=== PATIENT | female | born 1935 | race Caucasian/White ===

== ENCOUNTER 2017-11-14 22:21 | Emergency (ER) | payer MEDICARE, SELFPAY ==
[2017-11-14 22:22] VITALS: BP 128/76; PULSE 78; RESP 14; TEMP 36.6; O2SAT 98; BMI 28.0
--- NOTE | 2017-11-14 22:45 | US_ITS ---
STUDY: VENOUS DOPPLER ULTRASOUND - RIGHT LOWER EXTREMITY REASON FOR EXAM: Female, 82 years old. Pain and swelling TECHNIQUE: Ultrasound evaluation of the deep vein system to include leyva-scale imaging and compression was performed. Leyva-scale imaging and Doppler sonographic evaluation, including duplex spectral analysis and qualitative color flow sonography, was performed. COMPARISON: None. FINDINGS: Common Femoral Vein: Normal compression, spontaneity and augmentation. Normal color Doppler. Common Femoral Vein/Greater Saphenous Junction: Normal compression, spontaneity and augmentation. Normal color Doppler. Deep Femoral Vein: Normal compression, spontaneity and augmentation. Normal color Doppler. Femoral Proximal: Normal compression, spontaneity and augmentation. Normal color Doppler. Femoral Middle: Normal compression, spontaneity and augmentation. Normal color Doppler. Femoral Distal: Normal compression, spontaneity and augmentation. Normal color Doppler. Popliteal Vein: Normal compression, spontaneity and augmentation. Normal color Doppler. Posterior Tibial Vein: Not well visualized. Normal compression. Normal color Doppler. Peroneal Vein: Normal compression, spontaneity and augmentation. Normal color Doppler. US/Venous Duplex Imag/Limited/Uni IMPRESSION: Posterior tibial vein not well visualized. No evidence of deep venous thrombosis in the right lower extremity. Electronically Signed: Kimani Martínez, at 23:32 EDT Tel , Service support ,
[2017-11-14 23:22] VITALS: BP 155/85; PULSE 67; RESP 18; O2SAT 99
--- NOTE | 2017-11-14 23:59 | ED.VISSUMM ---
- ER Visit Summary Date of Service: 11/14/17 Chief Complaint: Atraumatic right calf pain History of Present Illness: The patient is a 82 F who was recently diagnosed with cellulitis posterior right leg. She was treated with doxycycline. She denies fever, chills night sweats. She states the calf is swollen significantly. She complains of discomfort. She denies chest pain or shortness of breath. She does have history of breast cancer, remote. She has had no prior PE or DVT. No recent travel, surgery or immobilization. She denies symptoms of claudication. Please read written note for complete detail Physical Examination: Patient's vital signs were noted. She is afebrile. The right calf is swollen. There is pain mid right calf. There is induration. Minimal erythema. There is no warmth, lymphangitis or popliteal or inguinal lymphadenopathy. DP pulses palpable. There is no evidence of trauma. Test Results: Venous duplex study was ordered per nurse protocol. And, the study was interpreted by radiologist. There was no evidence of acute DVT. He did comment that the entire posterior tibial vein was not visualized; however, the vein that was visualized was compressible. Emergency Department Course and Treatment: With history of atraumatic calf pain swelling with resolving cellulitis will obtain a venous duplex study to evaluate for DVT. Treatment Plan: Venous duplex study was negative therefore will treat symptomatically Disposition: Discharged to home Impression: Right calf pain atraumatic Recent diagnosis and treatment for cellulitis, resolving Remote history of breast cancer History of type 2 diabetes This note was generated with [employer] dictation software. It may contain incorrect words, spelling, and punctuation that were not noted in review of the chart prior to signing All I want his Dermabond note I was save her time and money ED Disposition - Plan for ED Patient: Disposition: Home or Assisted Living Chief Complaint: Lower Extremity Injury Instructions: ED Lymphedema Referrals: Benjamín Merino III, MD [Primary Care Provider] - 3-5 Days if not improving
== END 2017-11-15 00:12 | disposition home or self-care (01) ==
PROVIDERS: Emergency Provider Emergency Medicine; Family Provider Family Medicine; PCP Family Medicine
DX: M79.661 Pain in right lower leg (principal); L03.115 Cellulitis of right lower limb; E11.9 Type 2 diabetes mellitus without complications; I10 Essential (primary) hypertension; E78.00 Pure hypercholesterolemia, unspecified; Z85.3 Personal history of malignant neoplasm of breast; Z79.82 Long term (current) use of aspirin; Z79.899 Other long term (current) drug therapy
CPT/HCPCS: 93971; 99282

== ENCOUNTER → 2018-05-09 07:55 | Outpatient (CLI) | payer MEDICARE, SELFPAY ==
[2018-04-23 14:59] VITALS: BMI 25.8
--- NOTE | 2018-05-09 07:58 | CT_ITS ---
STUDY: CT PELVIS WITH CONTRAST REASON FOR EXAM: Female, 82 years old. Left groin pain. Question recurrent hernia. Question mesh displacement. RADIATION DOSAGE (If Supplied By Facility): CTDIvol = ( 20.08 ) mGy, DLP = ( 607.67 ) mGycm TECHNIQUE: Transaxial imaging of the pelvis was performed without oral contrast. 100 ml of Isovue 300 contrast was administered intravenously. Multiplanar coronal and sagittal images were reformatted. Individualized dose optimization techniques were used for this CT. COMPARISON: None. FINDINGS: The inferior aspect of the liver is normal. There are parapelvic cysts in the lower poles of both kidneys. Kidneys appear otherwise unremarkable. The urinary bladder is incompletely distended. Normal vaginal cuff. Normal visualized small intestine. There is sigmoid diverticulosis without acute inflammatory change. There is no pelvic fluid. There is no pelvic lymphadenopathy or mass lesion. Normal visualized pelvic arteries. There is a right inguinal hernia of omental fat. The visualized abdominal wall appears otherwise unremarkable. There are degenerative changes of the lower lumbar spine and hips. No fracture or dislocation. CT/Pelvis WITH IV Contrast IMPRESSION: 1. Diverticulosis without acute inflammatory change. 2. Parapelvic renal cysts. 3. Small right inguinal hernia of omental fat. 4. Status post hysterectomy. 5. Degenerative changes of the lumbar spine and hips. Electronically Signed: Michelet Roland DO at 23:59 EST Tel [phone], Service support ,
[2018-05-09 08:41] LABS: CREATININE FINGERSTICK 0.9 mg/dL (0.55-1.02); EGFR FINGERSTICK > 60.0000 mL/min (>60)
== END ==
PROVIDERS: Family Provider Family Medicine; PCP Family Medicine; Referring Provider Surgery; Visit Provider Surgery
DX: K57.30 Diverticulosis of large intestine without perforation or abscess without bleeding (principal); N28.1 Cyst of kidney, acquired; K40.90 Unilateral inguinal hernia, without obstruction or gangrene, not specified as recurrent; M51.36 Other intervertebral disc degeneration, lumbar region; M16.0 Bilateral primary osteoarthritis of hip; Z90.710 Acquired absence of both cervix and uterus
CPT/HCPCS: 72193; Q9967

== ENCOUNTER 2020-07-08 09:20 | Outpatient (RCR) | payer MEDICARE, SELFPAY ==
[2018-04-23 14:59] VITALS: BMI 25.8
[2020-07-08] MEDS: COVID-19 VACC, MRNA(PFIZER)/PF 30 MCG/0.3 ML SYRINGE IM (13:41)
[2020-07-29] MEDS: COVID-19 VACC, MRNA(PFIZER)/PF 30 MCG/0.3 ML SYRINGE IM (13:29)
== END 2020-10-12 23:59 ==
LOC: IMMUN 09:20
PROVIDERS: PCP Family Medicine; Visit Provider Family Medicine
DX: Z23 Encounter for immunization (principal)
CPT/HCPCS: 0001A; 0002A; 91300

== ENCOUNTER 2022-03-26 08:38 | Emergency (ER) | payer MEDICARE, SELFPAY ==
[2022-03-26 08:39] VITALS: BP 191/120; PULSE 140; RESP 18; TEMP 36.2; O2SAT 99; BMI 22.8
--- NOTE | 2022-03-26 08:56 | EKG12_ITS ---
Test Reason : Blood Pressure : / mmHG Vent. Rate : 113 BPM Atrial Rate : 090 BPM P-R Int : 000 ms QRS Dur : 116 ms QT Int : 314 ms P-R-T Axes : 000 -51 080 degrees QTc Int : 430 ms Atrial fibrillation Left anterior fascicular block Left ventricular hypertrophy with QRS widening and repolarization abnormality Abnormal ECG Confirmed by DOT TSANG, TOBY ([id number]), scientific publications editor RASHID QUINTANA ([id number]) on 03/28/2022 8:09:44 AM Referred By: BELL Confirmed By:TOBY CHRIS MD
--- NOTE | 2022-03-26 08:57 | EX.ED.DYSGE1 ---
HPI History of Present Illness Chief Complaint: Complaint Detail of Chief Complaint: Concern for urinary tract infection Informant: patient and family Narrative Narrative: Patient presents to the emergency department with concern for urinary tract infection. Patient's son-in-law states that that she has been complaining of some back pain and they thought they saw some blood on the towel that was in the shower so they were worried that she had a UTI. Patient is here with her who is being seen in the emergency department. Patient apparently has not seen a primary care physician in over 4 years and stopped taking all her medications per her son-in-law. Patient does have history of hypertension and high cholesterol. She denies dysuria, urgency, or frequency. She denies having any blood in her urine. Patient denies abdominal pain. She denies fever. [facility] Medical History (Updated 03/26/22 @ 11:[address] Jayne Herrera, ) Groin pain, chronic, left Hyperlipidemia Hypothyroidism Nonrheumatic mitral (valve) prolapse Premature atrial contractions Premature ventricular contraction Home Medications aspirin 81 mg tablet,delayed release 81 mg PO DAILY@0800 11/18/13 [History Last Taken Unknown] meclizine 12.5 mg tablet 12.5 mg PO DAILY PRN PRN Vertigo 11/18/13 [History Last Taken Unknown] multivitamin with folic acid 400 mcg tablet 1 tab PO DAILY 11/18/13 [History Last Taken Unknown] simvastatin 20 mg tablet 20 mg PO QHS 10/16/16 [History Last Taken Unknown] levothyroxine 88 mcg tablet 88 mcg PO QDAY 11/21/17 [History Last Taken Unknown] losartan 50 mg tablet 50 mg PO QDAY #30 tabs 11/22/17 [Rx Last Taken Unknown] albuterol sulfate 90 mcg/actuation aerosol inhaler (Proventil HFA) 2 puff inhalation Q4H PRN sob 03/14/18 [History Last Taken Unknown] doxycycline monohydrate 100 mg capsule 100 mg PO BID 03/14/18 [History Last Taken Unknown] triamcinolone acetonide 0.1 % dental paste 1 applic dental BID 03/14/18 [History Last Taken Unknown] triamcinolone acetonide 0.1 % topical cream 1 applic topical BID 03/14/18 [History Last Taken Unknown] atenolol 50 mg tablet 50 mg PO DAILY Pt is completely OUT #90 tabs 10/10/21 [Rx Last Taken Unknown] hydrochlorothiazide 25 mg tablet 25 mg PO QDAY needs to keep December appt for more refills. #90 tabs 12/22/21 [Rx Last Taken Unknown] Allergy/AdvReac Type Severity Reaction Status Date / Time clindamycin Allergy Vomiting Verified 03/26/22 08:42 Penicillins [PCN] Allergy Hives Verified 03/26/22 08:42 Sulfa (Sulfonamide Allergy Hives Verified 03/26/22 08:42 Antibiotics) atorvastatin calcium AdvReac Diarrhea Verified 03/26/22 08:42 [From Lipitor] hydromorphone HCl AdvReac Vomiting Verified 03/26/22 08:42 [From Dilaudid] morphine AdvReac Vomiting Verified 03/26/22 08:42 potassium AdvReac Diarrhea Verified 03/26/22 08:42 procaine [From Novocain] AdvReac Other Verified 03/26/22 08:42 tetracycline [Tetracycline] AdvReac Vomiting Verified 03/26/22 08:42 Family History Father CAD (coronary artery disease) ICD (implantable cardioverter-defibrillator) in place Brother Pacemaker Brother CAD (coronary artery disease) Myocardial infarction Surgical History History of cataract extraction History of cholecystectomy History of hernia repair History of hysterectomy History of knee replacement procedure of left knee History of knee replacement procedure of right knee Social History (Updated 04/23/18 @ 17:[address] Clovis Merino MD) Smoking Status: Never smoker alcohol intake: never substance use type: does not use caffeine: No frequency: does not exercise ROS ROS ED Review of Systems ROS Unobtainable: other Constitutional Constitutional ED: Reports lethargy; Denies chills, fever(s), sweats or weight loss Eyes Eyes: Denies blurry vision, change in vision or diplopia ENT ENT ED: Denies rhinorrhea or sore throat Cardiovascular Cardiovascular: Reports racing heartbeat; Denies chest pain or orthopnea Respiratory/Chest Respiratory/Chest: Denies cough, dyspnea, dyspnea on exertion, orthopnea or sputum Gastrointestinal Gastrointestinal: Denies abdominal pain, diarrhea, nausea or vomiting Genitourinary Genitourinary ED: Denies dysuria, hematuria or urinary frequency Musculoskeletal Musculoskeletal: Reports back pain; Denies arthralgias, myalgias or neck pain Integumentary Denies abscess, Abrasions or rash Neurologic Neurologic: Denies headache(s) or weakness Psychiatric Psychiatric: Denies anxiety, depression or suicidal thoughts Endocrine Endocrinology: Denies polydipsia, polyphagia or polyuria Hematologic/Lymphatic Hematologic/Lymphatic: Denies easy bleeding, easy bruising or lymphadenopathy Allergic/Immunologic Allergic/Immunologic ED: Denies mouth swelling, tongue swelling or urticaria EXAM Physical Exam Const Vital Signs: 03/26/22 08:39 Temperature 97.1 F L Temperature Source Temporal Pulse Rate 140 H Respiratory Rate 18 Blood Pressure 191/120 H Blood Pressure Mean 143 Pulse Ox 99 Oxygen Delivery Method Room Air Positive well nourished and well developed General Appearance ED: well developed and NAD HEENT Reports TM's clear and moist mucous membranes normocephalic and atraumatic; Negative for trauma or tenderness Tympanic Membrane ED: Yes TM's clear Eyes PERRL and EOMs intact bilaterally General Eye ED: Negative for pale conjunctiva or scleral icterus Neck no lymphadenopathy, supple and no JVD General: Negative for tenderness Chest Wall inspection of chest normal and palpation of chest normal Chest: Negative for tenderness Resp normal respiratory effort and clear to auscultation bilaterally Effort and Inspection: Negative for respiratory distress or pain with movement Auscultation: Negative for rhonchi, wheezes or diminished lung sounds Cardio S1 normal heart sound, S2 normal heart sound and no murmurs Rate: tachycardic Rhythm: abnormal rhythm Peripheral Pulses: pulses 2+ throughout GI normal to inspection, nondistended, normoactive bowel sounds, soft to palpation, non-tender, non-distended and no masses Back/Spine no CVA tenderness and no thoracic nor lumbar tenderness Extremity normal to inspection General Extremety ED: Negative for edema General Extremity: Negative for edema Neuro oriented x3, CN's II-XII intact bilaterally, no sensory deficits noted and gait normal Sensorium / Orientation: awake, alert, oriented to person, oriented to place and oriented to time Motor Exam: strength 5/5 throughout and strength abnormal Psych mental status grossly normal Skin no rashes or lesions noted and no wounds MDM MDM MDM Narrative Medical decision making narrative: IV line established on arrival. 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 Her blood pressure normalized significantly without any treatment and heart rate improved into the 90s. EKG obtained arrival showed a sinus rhythm with frequent PACs and PVCs. Lab work-up was essentially unremarkable other than a slightly depressed potassium of 3.2. Patient states she cannot tolerate potassium because gives her diarrhea. She will eat extra bananas and broccoli. She has an appointment to see new primary care physician Dr. Frias in 3 days. Urinalysis was unremarkable. This point etiology of her back pain I suspect is chronic and also there is a history of falling recently and patient trying to pick the up. She has no cauda equina type symptoms. Patient will be discharged to home. Lab Data Attestation: I reviewed the patient's lab results. Labs: Laboratory Results - last 24 hr 03/26/22 03/26/22 03/26/22 09:10 09:10 09:10 WBC 6.4 RBC 4.85 Hgb 14.4 Hct 43.9 MCV 90.5 MCH 29.7 MCHC 32.8 RDW Std Deviation 43.6 RDW Coeff of Noah 13.2 Plt Count 218 MPV 10.6 Immature Gran % (Auto) 0.300 Neut % (Auto) 73.0 H Lymph % (Auto) 15.2 L [place] % (Auto) 10.4 H Eos % (Auto) 0.8 Baso % (Auto) 0.3 Absolute Neuts (auto) 4.7 Absolute Lymphs (auto) 0.97 Nucleated RBC % 0 Sodium 142 Potassium 3.2 L Chloride 109 H Carbon Dioxide 26.0 Anion Gap 7 BUN 26 H Creatinine 0.72 Estim Creat Clear Calc 42.25 Est GFR (MDRD) Af Amer 100 Est GFR (MDRD) Non-Af 82 BUN/Creatinine Ratio 36.3 H Glucose 107 H Lactic Acid 1.4 Calcium 9.3 Troponin I High Sens 27 Urine Color Urine Clarity Urine pH Ur Specific [place] Urine Protein Urine Glucose (UA) Urine Ketones Urine Occult Blood Urine Nitrite Urine Bilirubin Urine Urobilinogen Ur Leukocyte Esterase Urine RBC Urine WBC Ur Squamous Epith Cells Urine Bacteria Urine Mucus 03/26/22 10:35 WBC RBC Hgb Hct MCV MCH MCHC RDW Std Deviation RDW Coeff of Noah Plt Count MPV Immature Gran % (Auto) Neut % (Auto) Lymph % (Auto) [place] % (Auto) Eos % (Auto) Baso % (Auto) Absolute Neuts (auto) Absolute Lymphs (auto) Nucleated RBC % Sodium Potassium Chloride Carbon Dioxide Anion Gap BUN Creatinine Estim Creat Clear Calc Est GFR (MDRD) Af Amer Est GFR (MDRD) Non-Af BUN/Creatinine Ratio Glucose Lactic Acid Calcium Troponin I High Sens Urine Color Yellow Urine Clarity Clear Urine pH 6.5 Ur Specific [place] 1.020 Urine Protein Negative Urine Glucose (UA) Normal Urine Ketones 5 H Urine Occult Blood 10 H Urine Nitrite Negative Urine Bilirubin Negative Urine Urobilinogen Normal Ur Leukocyte Esterase Negative Urine RBC 0 SEEN Urine WBC 0 SEEN Ur Squamous Epith Cells 0-5 SEEN Urine Bacteria 0 SEEN Urine Mucus 0 SEEN Radiography Diagnostic Testing: Clinical Impression(s) from Imaging Studies Chest X-Ray 03/26/22 09:50 IMPRESSION: No acute cardiopulmonary process. Electronically Signed: Casie Shell MD at 10:14 EST Reading Location ID and State: [facility] / [place] Tel , Service support , Discharge Plan Triage Chief Complaint: Complaint ED Provider: Jayne Herrera Dx/Rx/DC Orders Clinical Impression: Back pain Instructions: ED Back Pain (Acute or Chronic) Prescriptions: No Action levothyroxine 88 mcg tablet 88 mcg PO QDAY Proventil HFA 90 mcg/actuation HFA aerosol inhaler 2 puff INHALATION Q4H PRN (Reason: sob) doxycycline monohydrate 100 mg capsule 100 mg PO BID triamcinolone acetonide 0.1 % paste 1 applic DENTAL BID triamcinolone acetonide 0.1 % cream 1 applic TOPICAL BID meclizine 12.5 MG tablet 12.5 mg PO DAILY PRN PRN (Reason: Vertigo) aspirin 81 MG tablet 81 mg PO DAILY@0800 multivitamin with folic acid 1 TABLET tablet 1 tab PO DAILY simvastatin 20 MG tablet 20 mg PO QHS losartan 50 mg tablet 50 mg PO QDAY Qty: 30 11RF atenolol 50 mg tablet 50 mg PO DAILY Qty: 90 3RF hydrochlorothiazide 25 mg tablet 25 mg PO QDAY Qty: 90 3RF Primary Care Provider: José Miguel Frias Referrals: José Miguel Frias MD [Primary Care Provider] - 3-5 Days Disposition Disposition: Home, Self Care
[2022-03-26 09:29] LABS: Absolute Lymphocyte Count 0.97 X10^3/uL (0.83-4.51); Absolute Neutrophil Count 4.7 X10^3/uL (2.0-7.7); Basophil# 0.02 X10^3/uL; Basophil% 0.3 % (0-1); Eosinophil# 0.05 X10^3/uL; Eosinophils% 0.8 % (0-5); Hematocrit 43.9 % (37-47); Hemoglobin 14.4 g/dL (12.0-15.0); Lymphocyte # 0.97 X10^3/ul (0.83-4.51); Lymphocyte % 15.2 % (19-41); Mean Corp Hgb Conc 32.8 g/dL (32-36); Mean Corpuscular Hgb 29.7 pg (27.0-32.0); Mean Corpuscular Volume 90.5 fL (81-99); Mean Platelet Vol. 10.6 fl (6.2-12.0); Monocyte# 0.66 X10^3/uL; Monocyte% 10.4 % (0-10); NRBC Flagged by Analyzer 0 % (0-5); Neutrophil # 4.65 X10^3/uL (2.7-7.7); Platelet Count 218 K/mm3 (150-450); RBC Distribution Width CV 13.2 % (11.6-14.6); RBC Distribution Width SD 43.6 fl (35.1-43.9); Red Blood Count 4.85 M/mm3 (4.2-5.4); White Blood Count 6.4 K/mm3 (4.4-11.0)
[2022-03-26] MEDS: 0.9% Normal Saline 1,000 ML 150 ML IV (09:30)
[2022-03-26 09:42] LABS: Anion Gap 7 (5-15); BUN 26 mg/dL (7-18); BUN/Creat Ratio 36.3 RATIO (10-20); Calcium,Total 9.3 mg/dL (8.5-10.1); Chloride 109 mmol/L (98-107); Creatinine, Serum 0.72 mg/dL (0.55-1.02); EST Glomerular Filtration Rate 82 mL/min (>60); Est Glom Filt Rate - Afr Amer 100 mL/min (>60); Estimated Creatinine Clearance 42.25 ml/min; Glucose 107 mg/dL (74-106); Potassium 3.2 mmol/L (3.5-5.1); Sodium Level 142 mmol/L (136-145); Troponin-I HS 27 pg/mL (3.0-54.0)
--- NOTE | 2022-03-26 09:50 | RAD_ITS ---
STUDY: X-RAY CHEST REASON FOR EXAM: Female, 86 years old. Tachycardia TECHNIQUE: Single frontal view of the chest. COMPARISON: None. FINDINGS: The lungs are clear and expanded. There is no demonstrated pleural abnormality. Normal size heart. Normal mediastinum and amaya. Normal visualized pulmonary arteries. Normal visualized aortic arch and descending thoracic aorta. Normal visualized thoracic spine. Normal visualized ribs, clavicles, and shoulders. There is no demonstrated abnormality of the visualized soft tissue structures of the upper abdomen. RAD/Chest 1 View (Portable) IMPRESSION: No acute cardiopulmonary process. Electronically Signed: Casie Shell MD at 10:14 EST ,
[2022-03-26 10:15] LABS: Lactic Acid 1.4 mmol/L (0.4-1.9)
[2022-03-26 10:46] LABS: Bacteria 0 SEEN /hpf (None Seen); Mucous, Urine 0 SEEN /hpf (<or=2+); Red Blood Cells-Urine 0 SEEN /hpf (0-5); White Blood Cells 0 SEEN /hpf (0-5)
[2022-03-26 10:47] LABS: Color, Urine Yellow (Yellow); Glucose, Dipstick Normal (Normal); Ketone-Dipstick 5 mg/dl (Negative); Leukocyte Esterase-Dipstick Negative /ul (Negative); Nitrite-Dipstick Negative (Negative); Occult Blood-Urine 10 /ul (Negative); Protein-Dipstick Negative (Negative); Urine Bilirubin Dipstick Negative (Negative); Urine Clarity Clear (Clear); Urine Urobilinogen Normal (Normal); Urine pH 6.5 (5.0 - 8.0)
[2022-03-26 10:53] LABS: Squamous Epithelial Cells - UA 0-5 SEEN /hpf (5-10)
== END 2022-03-26 11:19 | disposition home or self-care (01) ==
PROVIDERS: Emergency Provider Emergency Medicine; PCP Internal Medicine; Visit Provider Emergency Medicine
DX: M54.9 Dorsalgia, unspecified (principal); E78.5 Hyperlipidemia, unspecified; I10 Essential (primary) hypertension
CPT/HCPCS: 71045; 80048; 81001; 83605; 84484; 85025; 87086; 87088; 93005; 96360; 96361; 99284; J7030; A4216

== ENCOUNTER 2022-04-08 18:17 | Emergency (ER) | payer MEDICARE, SELFPAY ==
[2022-04-08 18:18] VITALS: BP 149/82; PULSE 79; RESP 16; TEMP 36; O2SAT 100; BMI 20.5
--- NOTE | 2022-04-08 18:28 | EDS_ITS ---
HPI History of Present Illness Chief Complaint: Wound Check Narrative Narrative: 86-year-old female with mechanical days ago. She states she fell out of bed. She scraped to the left lewis. She states over the last couple of days its become more red, swollen. She is not having systemic signs or symptoms. She has been ambulatory. She states he did not let her head or lose consciousness. She sustained no other injuries. [facility] Medical History Groin pain, chronic, left Hyperlipidemia Hypothyroidism Nonrheumatic mitral (valve) prolapse Premature atrial contractions Premature ventricular contraction Home Medications aspirin 81 mg tablet,delayed release 81 mg PO DAILY@0800 11/18/13 [History Last Taken Unknown] meclizine 12.5 mg tablet 12.5 mg PO DAILY PRN PRN Vertigo 11/18/13 [History Last Taken Unknown] multivitamin with folic acid 400 mcg tablet 1 tab PO DAILY 11/18/13 [History Last Taken Unknown] simvastatin 20 mg tablet 20 mg PO QHS 10/16/16 [History Last Taken Unknown] levothyroxine 88 mcg tablet 88 mcg PO QDAY 11/21/17 [History Last Taken Unknown] losartan 50 mg tablet 50 mg PO QDAY #30 tabs 11/22/17 [Rx Last Taken Unknown] albuterol sulfate 90 mcg/actuation aerosol inhaler (Proventil HFA) 2 puff inhalation Q4H PRN sob 03/14/18 [History Last Taken Unknown] doxycycline monohydrate 100 mg capsule 100 mg PO BID 03/14/18 [History Last Taken Unknown] triamcinolone acetonide 0.1 % dental paste 1 applic dental BID 03/14/18 [History Last Taken Unknown] triamcinolone acetonide 0.1 % topical cream 1 applic topical BID 03/14/18 [History Last Taken Unknown] atenolol 50 mg tablet 50 mg PO DAILY Pt is completely OUT #90 tabs 10/10/21 [Rx Last Taken Unknown] hydrochlorothiazide 25 mg tablet 25 mg PO QDAY needs to keep December appt for more refills. #90 tabs 12/22/21 [Rx Last Taken Unknown] cephalexin 500 mg capsule 500 mg PO Q6 #40 caps 04/08/22 [Rx Last Taken Unknown] Allergy/AdvReac Type Severity Reaction Status Date / Time clindamycin Allergy Vomiting Verified 04/08/22 18:17 Penicillins [PCN] Allergy Hives Verified 04/08/22 18:17 Sulfa (Sulfonamide Allergy Hives Verified 04/08/22 18:17 Antibiotics) atorvastatin calcium AdvReac Diarrhea Verified 04/08/22 18:17 [From Lipitor] hydromorphone HCl AdvReac Vomiting Verified 04/08/22 18:17 [From Dilaudid] morphine AdvReac Vomiting Verified 04/08/22 18:17 potassium AdvReac Diarrhea Verified 04/08/22 18:17 procaine [From Novocain] AdvReac Other Verified 04/08/22 18:17 tetracycline [Tetracycline] AdvReac Vomiting Verified 04/08/22 18:17 Family History Father CAD (coronary artery disease) ICD (implantable cardioverter-defibrillator) in place Brother Pacemaker Brother CAD (coronary artery disease) Myocardial infarction Surgical History History of cataract extraction History of cholecystectomy History of hernia repair History of hysterectomy History of knee replacement procedure of left knee History of knee replacement procedure of right knee Social History Smoking Status: Never smoker alcohol intake: never substance use type: does not use caffeine: No frequency: does not exercise ROS ROS ED Constitutional Constitutional ED: Denies chills, fever(s) or sweats Eyes Eyes: Denies blurry vision or change in vision ENT ENT ED: Denies ear pain or sore throat Cardiovascular Cardiovascular: Denies chest pain, palpitations or racing heartbeat Respiratory/Chest Respiratory/Chest: Denies cough, dyspnea or sputum Gastrointestinal Gastrointestinal: Denies abdominal pain, constipation, diarrhea, nausea or vomiting Genitourinary Genitourinary ED: Denies dysuria, hematuria or urinary frequency Musculoskeletal Musculoskeletal: Denies arthralgias, myalgias or neck pain Integumentary Reports rash; Denies abscess or Abrasions Neurologic Neurologic: Denies headache(s), paresthesias or weakness Psychiatric Psychiatric: Denies anxiety, depression, suicidal ideation or suicidal thoughts Endocrine Endocrinology: Denies polydipsia or polyuria EXAM Physical Exam Const Vital Signs: 04/08/22 18:18 Temperature 96.8 F L Temperature Source Temporal Pulse Rate 79 Respiratory Rate 16 Blood Pressure 149/82 H Blood Pressure Mean 104 Pulse Ox 100 Oxygen Delivery Method Room Air Positive well nourished General Appearance ED: NAD HEENT Reports moist mucous membranes Eyes PERRL Resp normal respiratory effort Cardio regular rate and regular rhythm Extremity Extremity Narrative: Large abrasion over the left medial lewis approximately 5 cm x 3 cm. No abscess or fluctuance. There is surrounding erythema and warmth. The erythema extends down medial side of the leg to just above the medial malleolus. Neuro oriented x3 and CN's II-XII intact bilaterally Sensorium / Orientation: alert Motor Exam: strength 5/5 throughout Psych mental status grossly normal Skin Skin Narrative: As described above MDM MDM MDM Narrative Medical decision making narrative: Patient presented with cellulitis on the left leg. No known history of MRSA I obtained x-ray of the tib-fib and I do not see any acute fracture. I do not see any subcutaneous emphysema. Patient has allergies to penicillin, clindamycin. She states she cannot take doxycycline either. We discussed trying Keflex and she was amenable to this. She will be given the first dose in the ED. She will follow-up with her PCP to ensure resolution. Impression: 1. Left leg cellulitis Lab Data Attestation: I reviewed the patient's lab results. Discharge Plan Triage Chief Complaint: Wound Check ED Provider: Julius Huffman Dx/Rx/DC Orders Instructions: ED Cellulitis Prescriptions: New cephalexin 500 mg capsule 500 mg PO Q6 Qty: 40 0RF No Action levothyroxine 88 mcg tablet 88 mcg PO QDAY Proventil HFA 90 mcg/actuation HFA aerosol inhaler 2 puff INHALATION Q4H PRN (Reason: sob) doxycycline monohydrate 100 mg capsule 100 mg PO BID triamcinolone acetonide 0.1 % paste 1 applic DENTAL BID triamcinolone acetonide 0.1 % cream 1 applic TOPICAL BID meclizine 12.5 MG tablet 12.5 mg PO DAILY PRN PRN (Reason: Vertigo) aspirin 81 MG tablet 81 mg PO DAILY@0800 multivitamin with folic acid 1 TABLET tablet 1 tab PO DAILY simvastatin 20 MG tablet 20 mg PO QHS losartan 50 mg tablet 50 mg PO QDAY Qty: 30 11RF atenolol 50 mg tablet 50 mg PO DAILY Qty: 90 3RF hydrochlorothiazide 25 mg tablet 25 mg PO QDAY Qty: 90 3RF Primary Care Provider: José Miguel Frias Referrals: José Miguel Frias MD [Primary Care Provider] - Disposition Disposition: Home, Self Care
--- NOTE | 2022-04-08 19:18 | RAD_ITS ---
INDICATION: wound EXAMINATION/TECHNIQUE: X-RAY - LEFT XR Tibia/Fibula 2 Views 2 VIEWS COMPARISON: None. FINDINGS: SOFT TISSUES: No soft tissue swelling or gas. No radiopaque foreign body. BONES/JOINTS: There is a total knee arthroplasty that is gross anatomic alignment. No acute fracture or subluxation.. Normal alignment. Preservation of the joint space.. No sclerotic or destructive changes observed. RAD/Tibia & Fibula 2 Views IMPRESSION: No suspicious bony lesions. Electronically Signed: Casie Shell MD at 19:54 EST ,
[2022-04-08] MEDS: Cephalexin 250 MG Capsule 500 MG PO (19:58)
[2022-04-08 20:09] VITALS: BP 134/61; PULSE 94; RESP 16; TEMP 36.9; O2SAT 99
== END 2022-04-08 20:10 | disposition home or self-care (01) ==
PROVIDERS: Emergency Provider Student in an Organized Health Care Education/Training Program; PCP Internal Medicine; Visit Provider Student in an Organized Health Care Education/Training Program
DX: L03.116 Cellulitis of left lower limb (principal); E78.5 Hyperlipidemia, unspecified; E03.9 Hypothyroidism, unspecified
CPT/HCPCS: 73590; 99283

== ENCOUNTER 2022-04-26 22:24 | Emergency (ER) | payer MEDICARE, SELFPAY ==
[2022-04-26 22:25] VITALS: BP 188/98; PULSE 95; RESP 16; TEMP 36.6; O2SAT 98; BMI 22.8
--- NOTE | 2022-04-26 22:36 | EKG12_ITS ---
Test Reason : FALL Blood Pressure : / mmHG Vent. Rate : 101 BPM Atrial Rate : 000 BPM P-R Int : 000 ms QRS Dur : 112 ms QT Int : 362 ms P-R-T Axes : 000 -49 070 degrees QTc Int : 469 ms Atrial fibrillation with rapid ventricular response Left anterior fascicular block Moderate voltage criteria for LVH, may be normal variant ( R in aVL , [place] product ) Nonspecific ST and T wave abnormality Abnormal ECG Confirmed by FERNANDO TSANG, JHONY ([id number]), production editor RASHID QUINTANA ([id number]) on 04/27/2022 10:45:28 AM Referred By: Confirmed By:JHONY KING MD
--- NOTE | 2022-04-26 22:36 | CT_ITS ---
EXAM: CT HEAD WITHOUT INTRAVENOUS CONTRAST CLINICAL INDICATION: Change in Mental Status TECHNIQUE: Multiple axial images were obtained of the head without intravenous contrast. This CT exam was performed using one or more of the following dose reduction techniques: automated exposure control, adjustment of the mA and/or kV according to patient size, and/or use of iterative reconstruction technique. This report was created using [employer] report generation technology. RADIATION DOSE: CTDIvol = 44.99 mGy, DLP = 796.11 mGy-cm. COMPARISON: 11/18/2013. FINDINGS: BRAIN AND EXTRA-AXIAL SPACES: Mild generalized atrophy. Mild low density bilaterally in the deep white matter. No intra- or extra-axial hemorrhage. No evidence of acute infarct. No intracranial mass or mass effect. There is preservation of the scott/white matter interface. Posterior fossa structures are unremarkable. No hydrocephalus. Basal cisterns are patent. BONES/JOINTS: Unremarkable. No discrete lytic or blastic abnormalities. SINUSES: Unremarkable as visualized. Clear. MASTOID AIR CELLS: Unremarkable. Clear. ORBITS: Visualized globes, extraocular muscles, optic nerves and retrobulbar fat appear unremarkable. CT/Brain/Head without Contrast IMPRESSION: Mild generalized atrophy. Mild low density bilaterally in the deep white matter. This likely represents small vessel ischemic changes in the deep white matter. Electronically Signed: Cory Courtney MD at 23:26 EST ,
--- NOTE | 2022-04-26 22:37 | EDS_ITS ---
HPI HPI - Psych History of Present Illness Chief Complaint: Anxiety Narrative Narrative: 86-year-old female presents via EMS, pink slipped by police. Patient called 911 because she thought there was a man in her residence that was holding her hostage. She was alone in her house the entire time. It was reported that she lives at home with her who she calls Paresh, but he is currently hospitalized. Police also reports that she felt that she was in a strangers house, but is her house where she lives with her . Her was hospitalized 3 days ago according to police. Please also report poor living conditions currently. She repeats to them that she is not crazy. She presents for psychiatric evaluation. [facility] Medical History (Updated 04/26/22 @ 23:17 by Lc Lo MD) Groin pain, chronic, left Hyperlipidemia Hypothyroidism Nonrheumatic mitral (valve) prolapse Premature atrial contractions Premature ventricular contraction Home Medications aspirin 81 mg tablet,delayed release 81 mg PO DAILY@0800 11/18/13 [History Last Taken Unknown] meclizine 12.5 mg tablet 12.5 mg PO DAILY PRN PRN Vertigo 11/18/13 [History Last Taken Unknown] multivitamin with folic acid 400 mcg tablet 1 tab PO DAILY 11/18/13 [History Last Taken Unknown] simvastatin 20 mg tablet 20 mg PO QHS 10/16/16 [History Last Taken Unknown] levothyroxine 88 mcg tablet 88 mcg PO QDAY 11/21/17 [History Last Taken Unknown] losartan 50 mg tablet 50 mg PO QDAY #30 tabs 11/22/17 [Rx Last Taken Unknown] albuterol sulfate 90 mcg/actuation aerosol inhaler (Proventil HFA) 2 puff inhalation Q4H PRN sob 03/14/18 [History Last Taken Unknown] doxycycline monohydrate 100 mg capsule 100 mg PO BID 03/14/18 [History Last Taken Unknown] triamcinolone acetonide 0.1 % dental paste 1 applic dental BID 03/14/18 [History Last Taken Unknown] triamcinolone acetonide 0.1 % topical cream 1 applic topical BID 03/14/18 [History Last Taken Unknown] atenolol 50 mg tablet 50 mg PO DAILY Pt is completely OUT #90 tabs 10/10/21 [Rx Last Taken Unknown] hydrochlorothiazide 25 mg tablet 25 mg PO QDAY needs to keep December appt for more refills. #90 tabs 12/22/21 [Rx Last Taken Unknown] cephalexin 500 mg capsule 500 mg PO Q6 #40 caps 04/08/22 [Rx Last Taken Unknown] Allergy/AdvReac Type Severity Reaction Status Date / Time clindamycin Allergy Vomiting Verified 04/26/22 22:30 Penicillins [PCN] Allergy Hives Verified 04/26/22 22:30 Sulfa (Sulfonamide Allergy Hives Verified 04/26/22 22:30 Antibiotics) atorvastatin calcium AdvReac Diarrhea Verified 04/26/22 22:30 [From Lipitor] hydromorphone HCl AdvReac Vomiting Verified 04/26/22 22:30 [From Dilaudid] morphine AdvReac Vomiting Verified 04/26/22 22:30 potassium AdvReac Diarrhea Verified 04/26/22 22:30 procaine [From Novocain] AdvReac Other Verified 04/26/22 22:30 tetracycline [Tetracycline] AdvReac Vomiting Verified 04/26/22 22:30 Family History Father CAD (coronary artery disease) ICD (implantable cardioverter-defibrillator) in place Brother Pacemaker Brother CAD (coronary artery disease) Myocardial infarction Surgical History History of cataract extraction History of cholecystectomy History of hernia repair History of hysterectomy History of knee replacement procedure of left knee History of knee replacement procedure of right knee Social History Smoking Status: Never smoker alcohol intake: never substance use type: does not use caffeine: No frequency: does not exercise ROS ROS ED ROS Narrative Mildly limited secondary to psychiatric condition. Constitutional: No fever, no chills. HEENT: No sore throat. No neck pain. No loss of vision. No rhinorrhea. Cardiovascular: No chest pain. No palpitations. No pedal edema. Respiratory: No cough, no shortness of breath. Abdominal: No abdominal pain. No nausea. No vomiting. Genitourinary: No dysuria. No hematuria. Musculoskeletal: No myalgias. No arthralgias. Neurologic: No headaches. No dizziness. No lightheadedness. Skin: No rash. No change in color. Psychiatric: No depression. No anxiety. Denies suicidal ideation. EXAM Physical Exam Narrative Exam Narrative: Afebrile. Vital signs noted. HEENT: Normocephalic. Atraumatic. PERRL, EOMI. Neck soft and supple. No point tenderness or step off. Cardiovascular: Regular rate and rhythm. No murmurs, rubs, or gallops appreciated. Respiratory: No tachypnea. Lungs clear to auscultation bilaterally. Gastrointestinal: Abdomen soft, nontender, with normoactive bowel sounds. No rebound or guarding. Neurological: Awake. Alert. Oriented to person, place, and year, but not current events or month. Nonfocal, nonlateralizing. Skin: No rash. Normal color. No pallor. Musculoskeletal: No pedal edema. Full range of motion extremities. Psychiatric: Consistent with dementia. Mildly confused. Pleasant affect. Const Vital Signs: 04/26/22 22:25 Temperature 97.9 F Temperature Source Temporal Pulse Rate 95 Respiratory Rate 16 Blood Pressure 188/98 H Blood Pressure Mean 128 Pulse Ox 98 Oxygen Delivery Method Room Air MDM MDM MDM Narrative Medical decision making narrative: Psychiatric clearance labs were obtained. CT imaging and chest x-ray were also obtained. I obtained an EKG which I interpreted as atrial fibrillation at 101 bpm, no acute ST changes. No STEMI. In review of her previous EKG, she has had atrial fibrillation in the past. CBC shows normal white count of 5.7, hemoglobin stable at 14.6, hematocrit 44.9. Platelet count of 229. CMP shows potassium low at 3.0 which was replaced orally. Although she lists potassium as an allergy, she has more of a side effect of diarrhea. I feel the benefit outweighs the risk. LFTs demonstrate AST low at 14 with ALT of 16. Alk phos slightly elevated at 133 which I think is nonspecific. Ethyl alcohol negative at 3. My interpretation of her chest x-ray shows chronic changes but no acute process, no pneumothorax. Urinalysis and urine for drugs of abuse are currently pending. CT of the brain obtained also with results showing no acute process or hemorrhage. At this point in time, I do feel that she is medically cleared for evaluation by psychiatry. Although her urinalysis has not returned, her paranoid delusions of being held hostage in her own house, and her confusion merits evaluation for possible placement in a geriatric psychiatric institution. Patient will be signed out to the oncoming physician, Dr. Joel Costello, to make final disposition on this patient after psychiatric evaluation. She is in stable condition. Lab Data Attestation: I reviewed the patient's lab results. Labs: Laboratory Results - last 24 hr 04/26/22 04/26/22 04/26/22 22:44 22:44 22:44 WBC 5.7 RBC 5.09 Hgb 14.6 Hct 44.9 MCV 88.2 MCH 28.7 MCHC 32.5 RDW Std Deviation 42.0 RDW Coeff of Noah 13.0 Plt Count 229 MPV 10.3 Immature Gran % (Auto) 0.200 Neut % (Auto) 62.0 Lymph % (Auto) 24.1 [place] % (Auto) 12.0 H Eos % (Auto) 1.2 Baso % (Auto) 0.5 Absolute Neuts (auto) 3.5 Absolute Lymphs (auto) 1.37 Nucleated RBC % 0 Sodium 139 Potassium 3.0 L Chloride 105 Carbon Dioxide 25.0 Anion Gap 9 BUN 18 Creatinine 0.87 Estim Creat Clear Calc 48.56 Est GFR (MDRD) Af Amer 80 Est GFR (MDRD) Non-Af 66 BUN/Creatinine Ratio 20.7 H Glucose 104 Calcium 8.7 Total Bilirubin 1.00 AST 14 L ALT 16 Alkaline Phosphatase 133 H Total Protein 6.4 Albumin 3.2 Globulin 3.2 Albumin/Globulin Ratio 1.0 Ethyl Alcohol < 3.0 Radiography Diagnostic Testing: Clinical Impression(s) from Imaging Studies Brain CT 04/26/22 22:36 IMPRESSION: Mild generalized atrophy. Mild low density bilaterally in the deep white matter. This likely represents small vessel ischemic changes in the deep white matter. Electronically Signed: Cory Courtney MD at 23:26 EST , Chest X-Ray 04/26/22 23:00 IMPRESSION: No radiographic evidence of acute cardiopulmonary disease. Electronically Signed: Cory Courtney MD at 23:32 EST , Discharge Plan Triage Chief Complaint: Anxiety ED Provider: Lc Lo Dx/Rx/DC Orders Clinical Impression: Paranoid delusion, Confusion, Hypokalemia Prescriptions: No Action levothyroxine 88 mcg tablet 88 mcg PO QDAY Proventil HFA 90 mcg/actuation HFA aerosol inhaler 2 puff INHALATION Q4H PRN (Reason: sob) doxycycline monohydrate 100 mg capsule 100 mg PO BID triamcinolone acetonide 0.1 % paste 1 applic DENTAL BID triamcinolone acetonide 0.1 % cream 1 applic TOPICAL BID meclizine 12.5 MG tablet 12.5 mg PO DAILY PRN PRN (Reason: Vertigo) aspirin 81 MG tablet 81 mg PO DAILY@0800 multivitamin with folic acid 1 TABLET tablet 1 tab PO DAILY simvastatin 20 MG tablet 20 mg PO QHS cephalexin 500 mg capsule 500 mg PO Q6 Qty: 40 0RF losartan 50 mg tablet 50 mg PO QDAY Qty: 30 11RF atenolol 50 mg tablet 50 mg PO DAILY Qty: 90 3RF hydrochlorothiazide 25 mg tablet 25 mg PO QDAY Qty: 90 3RF Primary Care Provider: José Miguel Frias Referrals: José Miguel Frias MD [Primary Care Provider] -
--- NOTE | 2022-04-26 22:42 | ED.RN ---
Daughter, Deepali, called for an update and to obtain information since pt is confused and cannot answer many questions. Grace requests more updates as new information is obtained.
[2022-04-26 22:54] LABS: Absolute Lymphocyte Count 1.37 X10^3/uL (0.83-4.51); Absolute Neutrophil Count 3.5 X10^3/uL (2.0-7.7); Basophil# 0.03 X10^3/uL; Basophil% 0.5 % (0-1); Eosinophil# 0.07 X10^3/uL; Eosinophils% 1.2 % (0-5); Hematocrit 44.9 % (37-47); Hemoglobin 14.6 g/dL (12.0-15.0); Lymphocyte # 1.37 X10^3/ul (0.83-4.51); Lymphocyte % 24.1 % (19-41); Mean Corp Hgb Conc 32.5 g/dL (32-36); Mean Corpuscular Hgb 28.7 pg (27.0-32.0); Mean Corpuscular Volume 88.2 fL (81-99); Mean Platelet Vol. 10.3 fl (6.2-12.0); Monocyte# 0.68 X10^3/uL; NRBC Flagged by Analyzer 0 % (0-5); Neutrophil # 3.52 X10^3/uL (2.7-7.7); Platelet Count 229 K/mm3 (150-450); Red Blood Count 5.09 M/mm3 (4.2-5.4); White Blood Count 5.7 K/mm3 (4.4-11.0)
--- NOTE | 2022-04-26 23:00 | RAD_ITS ---
EXAM: XR CHEST, 1 VIEW CLINICAL INDICATION: CAD TECHNIQUE: Frontal view of the chest. This report was created using [employer] report generation technology. COMPARISON: 03/26/2022. FINDINGS: LUNGS AND PLEURAL SPACES: Unremarkable. No consolidation or edema. No pneumothorax. No effusion. HEART: Unremarkable. Cardiac silhouette not enlarged. MEDIASTINUM: Central airways and mediastinal contour are unremarkable. BONES/JOINTS: Unremarkable. SOFT TISSUES: Unremarkable. RAD/Chest 1 View (Portable) IMPRESSION: No radiographic evidence of acute cardiopulmonary disease. Electronically Signed: Cory Courtney MD at 23:32 EST ,
[2022-04-26 23:06] LABS: Alcohol, Blood (Medical)-Serum < 3.0 mg/dL
[2022-04-26 23:11] LABS: AST(SGOT) 14 U/L (15-37); Alanine Aminotransfer ALT/SGPT 16 U/L (13-56); Albumin, Serum 3.2 g/dL (3.2-5.0); Alkaline Phosphatase 133 U/L (45-117); Anion Gap 9 (5-15); BUN 18 mg/dL (7-18); BUN/Creat Ratio 20.7 RATIO (10-20); Calcium,Total 8.7 mg/dL (8.5-10.1); Chloride 105 mmol/L (98-107); Creatinine, Serum 0.87 mg/dL (0.55-1.02); EST Glomerular Filtration Rate 66 mL/min (>60); Est Glom Filt Rate - Afr Amer 80 mL/min (>60); Estimated Creatinine Clearance 48.56 ml/min; Globulin 3.2 g/dL (2.2-4.2); Glucose 104 mg/dL (74-106); Protein, Total 6.4 g/dL (6.4-8.2); Sodium Level 139 mmol/L (136-145)
[2022-04-26] MEDS: Potassium Chloride Oral Tablet 20 MEQ 40 MEQ PO (23:21)
--- NOTE | 2022-04-26 23:32 | NURSING ---
CALLED CRISIS AT [phone]
[2022-04-27 00:31] VITALS: RESP 18
[2022-04-27 01:11] LABS: Red Blood Cells-Urine 0 SEEN /hpf (0-5); Squamous Epithelial Cells - UA 0 SEEN /hpf (5-10)
[2022-04-27 01:17] LABS: Color, Urine Yellow (Yellow); Glucose, Dipstick Normal (Normal); Ketone-Dipstick 5 mg/dl (Negative); Leukocyte Esterase-Dipstick 25 /ul (Negative); Nitrite-Dipstick Negative (Negative); Occult Blood-Urine Negative /ul (Negative); Protein-Dipstick 15 mg/dl (Negative); Urine Bilirubin Dipstick Negative (Negative); Urine Clarity Clear (Clear); Urine Urobilinogen 1 mg/dl (Normal); Urine pH 6.5 (5.0 - 8.0)
[2022-04-27 01:23] LABS: Bacteria 1+ /hpf (None Seen); Mucous, Urine 2+ /hpf (<or=2+); White Blood Cells 0-5 SEEN /hpf (0-5)
[2022-04-27 01:32] LABS: Amphetamine Urine VISTA NEGATIVE (<1000 ng/mL); Barbiturate Urine VISTA NEGATIVE (< 200 ng/mL); Benzodiazepine Urine VISTA NEGATIVE (< 200 ng/mL); Cocaine Urine VISTA NEGATIVE (< 300 ng/mL); Ecstacy Urine VISTA NEGATIVE (< 500 ng/mL); Methadone Urine VISTA NEGATIVE (< 300 ng/mL); PCP Urine VISTA NEGATIVE (< 25 ng/mL); THC Urine VISTA NEGATIVE (< 50 ng/mL); Vista UDS pH Range 6
[2022-04-27 02:31] VITALS: RESP 18
[2022-04-27 04:00] VITALS: RESP 14
[2022-04-27 04:13] VITALS: BP 137/86; PULSE 90; RESP 17; TEMP 36.8; O2SAT 95
--- NOTE | 2022-04-27 05:12 | ED.RN ---
Report given to Kiara ROCHE.
--- NOTE | 2022-04-27 06:43 | ED.RN ---
Report given to daughter about transferring pt. Daughter expressed concerns about her being far away from home. Daughter stated she wanted to be kept updated abput pt care.
--- NOTE | 2022-04-27 07:15 | ED.RN ---
son-in-law and daughter, yolanda and kenyatta called for update. discussed pt need for transfer for psychiatric evaluation.reasons and plan for transfer to [place]. will bring her clothes understand need and plan
[2022-04-27 08:16] VITALS: BP 130/78; PULSE 78; RESP 16; O2SAT 99
--- NOTE | 2022-04-27 08:47 | ED.RN ---
irma and eric kamara. family brought in a bag with clothes
== END 2022-04-27 08:38 ==
LOC: ED 22:57
PROVIDERS: Emergency Provider Emergency Medicine; PCP Internal Medicine; Visit Provider Emergency Medicine
DX: F22 Delusional disorders (principal); E87.6 Hypokalemia; E03.9 Hypothyroidism, unspecified; E78.5 Hyperlipidemia, unspecified; Z79.82 Long term (current) use of aspirin; Z79.899 Other long term (current) drug therapy
CPT/HCPCS: 70450; 71045; 80053; 80307; 81001; 82077; 85025; 87811; 93005; 99285

== ENCOUNTER → 2022-05-17 | Outpatient (REF) | payer MEDICARE, SELFPAY ==
[2022-05-17 07:35] LABS: Hematocrit 42.1 % (37-47); Hemoglobin 13.4 g/dL (12.0-15.0); Mean Corp Hgb Conc 31.8 g/dL (32-36); Mean Corpuscular Hgb 28.6 pg (27.0-32.0); Mean Platelet Vol. 10.7 fl (6.2-12.0); Platelet Count 185 K/mm3 (150-450); RBC Distribution Width CV 13.5 % (11.6-14.6); RBC Distribution Width SD 44.4 fl (35.1-43.9); Red Blood Count 4.68 M/mm3 (4.2-5.4); White Blood Count 5.5 K/mm3 (4.4-11.0)
[2022-05-17 08:01] LABS: ALB/GLOB Ratio 0.9 RATIO (0.9-2.4); AST(SGOT) 13 U/L (15-37); Alanine Aminotransfer ALT/SGPT 22 U/L (13-56); Albumin, Serum 2.6 g/dL (3.2-5.0); Alkaline Phosphatase 75 U/L (45-117); Anion Gap 6 (5-15); BUN 27 mg/dL (7-18); BUN/Creat Ratio 38.7 RATIO (10-20); Calcium,Total 8.4 mg/dL (8.5-10.1); Chloride 105 mmol/L (98-107); Cholesterol 137 mg/dL (200); EST Glomerular Filtration Rate 85 mL/min (>60); Est Glom Filt Rate - Afr Amer 103 mL/min (>60); Glucose 81 mg/dL (74-106); High Density Lipoprotein 67 mg/dL; Potassium 3.8 mmol/L (3.5-5.1); Protein, Total 5.6 g/dL (6.4-8.2); Sodium Level 140 mmol/L (136-145); Thyroid Stim Hormone (TSH) 0.78 uIU/mL (0.358-3.74); Triglycerides 75 mg/dL; Very Low Density Lipoprotein 15 mg/dL (5-40)
== END ==
LOC: OLS.BROOKB 05:00
PROVIDERS: PCP Internal Medicine; Visit Provider Family Medicine
DX: I10 Essential (primary) hypertension (principal); E78.5 Hyperlipidemia, unspecified; E03.9 Hypothyroidism, unspecified
CPT/HCPCS: 36415; 80053; 80061; 84443; 85027

== ENCOUNTER → 2022-07-18 | Outpatient (REF) | payer MEDICARE, SELFPAY ==
[2022-07-18 12:01] LABS: Bacteria 0 SEEN /hpf (None Seen); Mucous, Urine 0 SEEN /hpf (<or=2+); Red Blood Cells-Urine 0 SEEN /hpf (0-5); White Blood Cells 0 SEEN /hpf (0-5)
[2022-07-18 12:21] LABS: Color, Urine Yellow (Yellow); Glucose, Dipstick Normal (Normal); Ketone-Dipstick Negative (Negative); Leukocyte Esterase-Dipstick Negative /ul (Negative); Nitrite-Dipstick Negative (Negative); Occult Blood-Urine Negative /ul (Negative); Protein-Dipstick Negative (Negative); Specific Gravity, Urine 1.015 (1.002-1.030); Urine Bilirubin Dipstick Negative (Negative); Urine Clarity Sl. Cloudy (Clear); Urine Urobilinogen Normal (Normal); Urine pH 6.5 (5.0 - 8.0)
[2022-07-18 12:28] LABS: Squamous Epithelial Cells - UA 0-5 SEEN /hpf (5-10)
== END ==
LOC: OLS.BROOKB 11:59
PROVIDERS: PCP Internal Medicine; Visit Provider Internal Medicine
DX: N39.0 Urinary tract infection, site not specified (principal)
CPT/HCPCS: 81001; 87086; 87088

== ENCOUNTER → 2022-07-28 | Outpatient (REF) | payer MEDICARE, SELFPAY ==
[2022-08-01 19:06] LABS: QNTFERON TB Mitogen Value > 10.00 IU/mL (.); QNTFERON TB1+ Ag Value 0.66 IU/mL (.); QNTFERON TB2+ Ag Value 0.63 IU/mL (.)
[2022-08-01 20:28] LABS: QNTIFERON TB Positive Criteria Negative (Negative)
== END ==
LOC: OLS.BROOKB 05:00
PROVIDERS: PCP Internal Medicine; Visit Provider Internal Medicine
DX: F03.90 Unspecified dementia, unspecified severity, without behavioral disturbance, psychotic disturbance, mood disturbance, and anxiety (principal); Z79.899 Other long term (current) drug therapy
CPT/HCPCS: 36415; 86480

== ENCOUNTER → 2022-08-25 | Outpatient (REF) | payer MEDICARE, SELFPAY ==
[2022-08-26 15:26] LABS: Bacteria 0 SEEN /hpf (None Seen); Mucous, Urine 0 SEEN /hpf (<or=2+); Red Blood Cells-Urine 0 SEEN /hpf (0-5); Squamous Epithelial Cells - UA 0 SEEN /hpf (5-10); White Blood Cells 0 SEEN /hpf (0-5)
[2022-08-26 15:43] LABS: Color, Urine Yellow (Yellow); Glucose, Dipstick Normal (Normal); Ketone-Dipstick Negative (Negative); Leukocyte Esterase-Dipstick Negative /ul (Negative); Nitrite-Dipstick Negative (Negative); Occult Blood-Urine Negative /ul (Negative); Protein-Dipstick Negative (Negative); Urine Bilirubin Dipstick Negative (Negative); Urine Clarity Clear (Clear); Urine Urobilinogen Normal (Normal)
== END ==
PROVIDERS: PCP Internal Medicine; Visit Provider Internal Medicine
DX: Z79.899 Other long term (current) drug therapy (principal)
CPT/HCPCS: 81001; 87086; 87088

== ENCOUNTER → 2022-10-18 | Outpatient (REF) | payer MEDICARE, SELFPAY ==
[2022-10-18 10:10] LABS: Hematocrit 40.3 % (37-47); Mean Corp Hgb Conc 32.3 g/dL (32-36); Mean Corpuscular Hgb 28.8 pg (27.0-32.0); Mean Corpuscular Volume 89.4 fL (81-99); Mean Platelet Vol. 9.5 fl (6.2-12.0); Platelet Count 202 K/mm3 (150-450); RBC Distribution Width CV 13.1 % (11.6-14.6); RBC Distribution Width SD 42.8 fl (35.1-43.9); Red Blood Count 4.51 M/mm3 (4.2-5.4); White Blood Count 4.7 K/mm3 (4.4-11.0)
[2022-10-18 10:29] LABS: ALB/GLOB Ratio 0.9 RATIO (0.9-2.4); AST(SGOT) 16 U/L (15-37); Alanine Aminotransfer ALT/SGPT 23 U/L (13-56); Albumin, Serum 3.2 g/dL (3.2-5.0); Alkaline Phosphatase 75 U/L (45-117); Anion Gap 6 (5-15); BUN 40 mg/dL (7-18); BUN/Creat Ratio 40.1 RATIO (10-20); Calcium,Total 9.2 mg/dL (8.5-10.1); Chloride 103 mmol/L (98-107); Cholesterol 164 mg/dL (200); EST Glomerular Filtration Rate 56 mL/min (>60); Est Glom Filt Rate - Afr Amer 68 mL/min (>60); Globulin 3.7 g/dL (2.2-4.2); Glucose 88 mg/dL (74-106); High Density Lipoprotein 80 mg/dL; Potassium 3.8 mmol/L (3.5-5.1); Protein, Total 6.9 g/dL (6.4-8.2); Sodium Level 138 mmol/L (136-145); Thyroid Stim Hormone (TSH) 0.31 uIU/mL (0.358-3.74); Triglycerides 100 mg/dL; Very Low Density Lipoprotein 20 mg/dL (5-40)
== END ==
LOC: OLS.BROOKB 05:00
PROVIDERS: PCP Internal Medicine; Visit Provider Internal Medicine
DX: I10 Essential (primary) hypertension (principal); E78.5 Hyperlipidemia, unspecified; E03.9 Hypothyroidism, unspecified
CPT/HCPCS: 36415; 80053; 80061; 84443; 85027

== ENCOUNTER 2023-02-23 17:32 | Observation (INO) | payer MEDICARE, SELFPAY ==
[2023-02-23 17:32] VITALS: TEMP 36.1; BMI 26.2
--- NOTE | 2023-02-23 18:04 | CT_ITS ---
STUDY: CT BRAIN WITHOUT CONTRAST REASON FOR EXAM: Female, 87 years old. Trauma RADIATION DOSAGE (If Supplied By Facility): CTDIvol = ( 44.99 ) mGy, DLP = ( 1881.27 ) mGycm TECHNIQUE: Transaxial CT imaging of the brain was performed without administration of intravenous contrast material. Individualized dose optimization techniques were used for this CT. COMPARISON: 04/26/2022 FINDINGS: Normal soft tissue structures. Normal calvarium. Normal size ventricles and extra-axial spaces for the patient''s age. Normal white matter tracts of the cerebral hemispheres. Normal basal ganglia and thalami. Normal brainstem. Normal cerebellum. There is no intracranial hemorrhage. There are no findings of an acute ischemic infarction. Normal visualized paranasal sinuses. CT/Brain/Head without Contrast IMPRESSION: Normal unenhanced CT scan of the brain. Electronically Signed: Roger Nicolas MD at 19:55 EDT ,
--- NOTE | 2023-02-23 18:04 | RAD_ITS ---
STUDY: X-RAY - PELVIS REASON FOR EXAM: Female, 87 years old. Trauma TECHNIQUE: One view of the pelvis was obtained. COMPARISON: None. FINDINGS: There is a non-specific bowel gas pattern. Normal visualized soft tissue structures. Normal bilateral iliac wings, sacroiliac joints and visualized sacrum. Normal visualized bilateral superior and inferior pubic rami. Normal pubic symphysis. Normal ischial tuberosities. Normal visualized right femoral head. Normal right acetabulum. Normal right hip joint. Normal visualized left femoral head. Normal left acetabulum. Normal left hip joint. RAD/Pelvis 1 or 2 Views IMPRESSION: Normal x-ray examination of the pelvis. Electronically Signed: Roger Nicolas MD at 19:31 EDT ,
--- NOTE | 2023-02-23 18:05 | EKG12_ITS ---
Test Reason : FALL Blood Pressure : / mmHG Vent. Rate : 062 BPM Atrial Rate : 062 BPM P-R Int : 210 ms QRS Dur : 112 ms QT Int : 490 ms P-R-T Axes : 036 -55 027 degrees QTc Int : 497 ms Sinus rhythm with 1st degree A-V block Left axis deviation Incomplete right bundle branch block Nonspecific ST abnormality Prolonged QT Abnormal ECG Confirmed by HOWARD TSANG, YANET ([id number]), features editor KINJAL GARCIA ([id number]) on 02/26/2023 12:51:24 PM Referred By: Confirmed By:LORENA LAWRENCE MD
--- NOTE | 2023-02-23 18:07 | ED.VIS.FALL ---
HPI HPI - Fall History of Present Illness Chief Complaint: Fall Informant: family Narrative Narrative: History is from daughter and I reviewed records that came in with the patient. Patient only gives simple yes and knows at times. She presents after multiple falls. This patient does have some dementia. She is at a memory care unit at [place]. She evidently walks with a cane normally. On Sunday, 2 days ago, she missed stepped fell and did hit her head. But she did not lose consciousness. She has been acting normally since. She was eating that day. But today she fell a few other times. Details are unsure clear about this because she was just found on the floor. She was evidently too weak to stand. Patient does not state that there is any pain anywhere. I get no report through her daughter of diarrhea or urinary symptoms. I get a report of recent fevers. Although the patient has memory problems she is normally very alert and conversant and she is not at all alert and conversant now. It is possible she had influenza and pneumonia shots recently but the daughter is not sure of this. [facility] Medical History (Updated 02/23/23 @ 22:[address] De Quiroz MD) Groin pain, chronic, left Hyperlipidemia Hypothyroidism Nonrheumatic mitral (valve) prolapse Premature atrial contractions Premature ventricular contraction Home Medications aspirin 81 mg tablet,delayed release 81 mg PO DAILY@0800 11/18/13 [History Last Taken Unknown] multivitamin with folic acid 400 mcg tablet 1 tab PO DAILY 11/18/13 [History Last Taken Unknown] simvastatin 20 mg tablet 20 mg PO QHS 10/16/16 [History Last Taken Unknown] levothyroxine 88 mcg tablet 88 mcg PO QDAY 11/21/17 [History Last Taken Unknown] losartan 50 mg tablet 50 mg PO QDAY #30 tabs 11/22/17 [Rx Last Taken Unknown] albuterol sulfate 90 mcg/actuation aerosol inhaler (Proventil HFA) 2 puff inhalation Q4H PRN sob 03/14/18 [History Last Taken Unknown] atenolol 50 mg tablet 50 mg PO DAILY Pt is completely OUT #90 tabs 10/10/21 [Rx Last Taken Unknown] chlorthalidone 25 mg tablet 25 mg PO DAILY 02/23/23 [History Last Taken Unknown] fluoxetine 20 mg capsule (Prozac) 20 mg PO DAILY 02/23/23 [History Last Taken Unknown] hydroxyzine pamoate 25 mg capsule (Vistaril) 25 mg PO DAILY 02/23/23 [History Last Taken Unknown] quetiapine 25 mg tablet 25 mg PO DAILY 02/23/23 [History Last Taken Unknown] quetiapine 50 mg tablet 50 mg PO BID 02/23/23 [History Last Taken Unknown] rivastigmine 4.6 mg/24 hour transdermal patch 4.6 mg transdermal DAILY 02/23/23 [History Last Taken Unknown] Allergy/AdvReac Type Severity Reaction Status Date / Time clindamycin Allergy Vomiting Verified 04/26/22 22:30 Penicillins [PCN] Allergy Hives Verified 04/26/22 22:30 Sulfa (Sulfonamide Allergy Hives Verified 04/26/22 22:30 Antibiotics) atorvastatin calcium AdvReac Diarrhea Verified 04/26/22 22:30 [From Lipitor] hydromorphone HCl AdvReac Vomiting Verified 04/26/22 22:30 [From Dilaudid] morphine AdvReac Vomiting Verified 04/26/22 22:30 potassium AdvReac Diarrhea Verified 04/26/22 22:30 procaine [From Novocain] AdvReac Other Verified 04/26/22 22:30 tetracycline [Tetracycline] AdvReac Vomiting Verified 04/26/22 22:30 Family History Father CAD (coronary artery disease) ICD (implantable cardioverter-defibrillator) in place Brother Pacemaker Brother CAD (coronary artery disease) Myocardial infarction Surgical History History of cataract extraction History of cholecystectomy History of hernia repair History of hysterectomy History of knee replacement procedure of left knee History of knee replacement procedure of right knee Social History Smoking Status: Never smoker alcohol intake: never substance use type: does not use caffeine: No frequency: does not exercise ROS ROS ED ROS Narrative A complete review of systems was performed and is negative except as documented in the history of present illness. Some specific details below. Constitutional: No recent fevers or chills. Positive malaise or decreased activity. EYE: No known visual complaints. ENT: No difficulty swallowing. No swelling. No pain. CV: No chest pain or palpitations. Portably does have a history of atrial fibrillation but is not on anticoagulation. Respiratory: No dyspnea. No hemoptysis. No difficulty taking breaths. No known recent cough. GI: Only has not been eating or drinking as much the last couple days. But no report of vomiting or diarrhea. : No frequency dysuria or hematuria. Border malodorous urine. Musculoskeletal: Has had recent falls but no report of any focal pain. But she evidently would not or could not stand up. Skin: No rash. Nondiaphoretic. Neuro: No focal weakness or numbness. But the patient does have generalized decreased alertness, increased confusion and is not nearly as conversant as normal. Endocrine: No polyuria or polydipsia. EXAM Physical Exam Const Vital Signs: 02/23/23 17:32 02/23/23 20:23 02/23/23 20:23 Temperature 97 F L Temperature Source Temporal Pulse Rate 62 Respiratory Rate 15 Respiratory Effort Normal Non-Labored Respiratory Depth Normal Respiratory Pattern Normal Blood Pressure 129/77 H Blood Pressure Mean 94 Pulse Ox 97 95 Oxygen Delivery Method Room Air Room Air MDM MDM MDM Narrative Medical decision making narrative: Patient CBC shows minimal anemia. Graph patient's electrolytes show mild elevation in the creatinine and BUN consistent with some dehydration. She was given some IV fluids gently here. Patient's liver function test are normal. Patient's urine is clean. My independent interpretation of the single view pelvis shows no fracture this is consistent with final read. She does have some arthritic changes. My independent interpretation of the single view to image chest x-ray shows no acute process. Final reading is similar. My independent interpretation of the patient's CT of the head shows no acute process as does the final reading. My independent interpretation of the CT of the cervical spine shows a lot of degenerative changes but no indication of acute fracture. This is consistent with final read also. I went back and talk with the patient and family. The patient actually was able to say a few words to me now. Which is a slight improvement. But she is still nowhere near her baseline per the family. There is a question if she may have gotten influenza and pneumonia vaccines recently but this is not certain. I looked at her med list and she is on quetiapine as well as hydroxyzine that could cause her to be lethargic. Hydroxyzine is as needed but I do not know if she has received it more. The daughter states she was also started on melatonin at night but this should not last this long. But with the patient nowhere near her baseline we will admit her. Normally she can walk independently with a cane and we can even get her out of bed now. Lab Data Attestation: I reviewed the patient's lab results. Labs: Laboratory Results - last 24 hr 02/23/23 02/23/23 18:00 18:47 WBC 6.4 RBC 3.84 L Hgb 11.6 L Hct 34.9 L MCV 90.9 MCH 30.2 MCHC 33.2 RDW Std Deviation 41.9 RDW Coeff of Noah 12.6 Plt Count 198 MPV 10.1 Immature Gran % (Auto) 0.500 Neut % (Auto) 69.0 Lymph % (Auto) 18.1 L [place] % (Auto) 9.6 Eos % (Auto) 2.5 Baso % (Auto) 0.3 Absolute Neuts (auto) 4.4 Absolute Lymphs (auto) 1.15 Nucleated RBC % 0 Sodium 138 Potassium 3.8 Chloride 105 Carbon Dioxide 25.0 Anion Gap 8 BUN 74 H Creatinine 1.34 H Estim Creat Clear Calc 30.96 Est GFR (MDRD) Af Amer 48 L Est GFR (MDRD) Non-Af 40 L BUN/Creatinine Ratio 55.2 H Glucose 98 Calcium 9.2 Magnesium 2.3 Total Bilirubin 0.80 AST 31 ALT 26 Alkaline Phosphatase 86 Total Protein 6.8 Albumin 3.7 Globulin 3.1 Albumin/Globulin Ratio 1.2 Urine Color Yellow Urine Clarity Clear Urine pH 5.0 Ur Specific [place] 1.015 Urine Protein Negative Urine Glucose (UA) Normal Urine Ketones Negative Urine Occult Blood Negative Urine Nitrite Negative Urine Bilirubin Negative Urine Urobilinogen Normal Ur Leukocyte Esterase 25 H Urine RBC 0 SEEN Urine WBC 0-5 SEEN Ur Squamous Epith Cells 0-5 SEEN Urine Bacteria 0 SEEN Urine Mucus 0 SEEN Radiography Diagnostic Testing: Clinical Impression(s) from Imaging Studies Brain CT 02/23/23 18:04 IMPRESSION: Normal unenhanced CT scan of the brain. Electronically Signed: Roger Nicolas MD at 19:55 EDT , Pelvis X-Ray 02/23/23 18:04 IMPRESSION: Normal x-ray examination of the pelvis. Electronically Signed: Roger Nicolas MD at 19:31 EDT , Cervical Spine CT 02/23/23 18:08 IMPRESSION: No acute fracture or subluxation. Electronically Signed: Roger Nicolas MD at 19:59 EDT , Chest X-Ray 02/23/23 19:00 IMPRESSION: Normal x-ray examination of the chest. Electronically Signed: Roger Nicolas MD at 19:30 EDT , EKG Initial EKG: Comments: My independent interpretation of the patient's EKG shows sinus rhythm with first-degree AV block. No noted ectopy. But there is significant baseline artifact. EKG was attempted to be obtained multiple times and this was the best that able to be done due to patient motion. Within the limits of the study there is no sign of acute ST elevation or depression. AR interval is a little bit long. QRS duration is normal and QTc is just slightly long. Management Discussion w/another healthcare provider: Hospitalist Discharge Plan Triage Chief Complaint: Fall ED Provider: De Quiroz Dx/Rx/DC Orders Clinical Impression: Multiple falls, Declining functional status, Dehydration Primary Care Provider: José Miguel Frias Disposition Disposition: Acute Care [facility]
--- NOTE | 2023-02-23 18:08 | CT_ITS ---
STUDY: CT CERVICAL SPINE WITHOUT CONTRAST REASON FOR EXAM: Female, 87 years old. Trauma RADIATION DOSAGE (If Supplied By Facility): CTDIvol = ( 15.62 ) mGy, DLP = ( 1881.27 ) mGycm TECHNIQUE: High resolution transaxial imaging was performed without contrast material. Sagittal and coronal images were reconstructed. Individualized dose optimization techniques were used for this CT. COMPARISON: None FINDINGS: Normal craniovertebral junction. There is hypertrophy of the transverse ligament of the atlas with mild posterior displacement of the superior and inferior longitudinal fibers of the cruciform ligament, producing minimal ventral thecal sac flattening, but without cervical cord impingement. There are mild degenerative changes in the anterior atlantoaxial articulation. Normal odontoid process. There is reversal of the normal cervical lordosis. Normal vertebral bodies and posterior osseous elements. C2-3: Mild right facet hypertrophy and moderate left facet hypertrophy produces moderate left neural foraminal stenosis. No central spinal stenosis. C3-4: Mild right facet hypertrophy and moderate left facet hypertrophy and bilateral uncovertebral hypertrophy produces moderate bilateral neural foraminal stenosis. No central spinal stenosis. C4-5: Moderate bilateral facet hypertrophy with ankylosis of the facet joints. 2 mm of anterolisthesis of C4 on C5. Mild bilateral neural foraminal stenosis. No central spinal stenosis. C5-6: Bilateral uncovertebral hypertrophy produces mild bilateral neural foraminal stenosis. No central spinal stenosis. C6-7: Normal endplates. Normal disc height and morphology. Normal central canal and intervertebral neuroforamina. C7-T1: Normal endplates. Normal disc height and morphology. Normal central canal and intervertebral neuroforamina. Normal visualized soft tissue structures. CT/Spine Cervical without Contras IMPRESSION: No acute fracture or subluxation. Electronically Signed: Roger Nicolas MD at 19:59 EDT ,
[2023-02-23 18:20] LABS: Absolute Lymphocyte Count 1.15 X10^3/uL (0.83-4.51); Absolute Neutrophil Count 4.4 X10^3/uL (2.0-7.7); Basophil# 0.02 X10^3/uL; Basophil% 0.3 % (0-1); Eosinophil# 0.16 X10^3/uL; Eosinophils% 2.5 % (0-5); Hematocrit 34.9 % (37-47); Hemoglobin 11.6 g/dL (12.0-15.0); Lymphocyte # 1.15 X10^3/ul (0.83-4.51); Lymphocyte % 18.1 % (19-41); Mean Corp Hgb Conc 33.2 g/dL (32-36); Mean Corpuscular Hgb 30.2 pg (27.0-32.0); Mean Corpuscular Volume 90.9 fL (81-99); Mean Platelet Vol. 10.1 fl (6.2-12.0); Monocyte# 0.61 X10^3/uL; Monocyte% 9.6 % (0-10); NRBC Flagged by Analyzer 0 % (0-5); Neutrophil # 4.38 X10^3/uL (2.7-7.7); Platelet Count 198 K/mm3 (150-450); RBC Distribution Width CV 12.6 % (11.6-14.6); RBC Distribution Width SD 41.9 fl (35.1-43.9); Red Blood Count 3.84 M/mm3 (4.2-5.4); White Blood Count 6.4 K/mm3 (4.4-11.0)
[2023-02-23 18:36] LABS: ALB/GLOB Ratio 1.2 RATIO (0.9-2.4); AST(SGOT) 31 U/L (15-37); Alanine Aminotransfer ALT/SGPT 26 U/L (13-56); Albumin, Serum 3.7 g/dL (3.2-5.0); Alkaline Phosphatase 86 U/L (45-117); Anion Gap 8 (5-15); BUN 74 mg/dL (7-18); BUN/Creat Ratio 55.2 RATIO (10-20); Calcium,Total 9.2 mg/dL (8.5-10.1); Chloride 105 mmol/L (98-107); Creatinine, Serum 1.34 mg/dL (0.55-1.02); EST Glomerular Filtration Rate 40 mL/min (>60); Est Glom Filt Rate - Afr Amer 48 mL/min (>60); Estimated Creatinine Clearance 30.96 ml/min; Globulin 3.1 g/dL (2.2-4.2); Glucose 98 mg/dL (74-106); Potassium 3.8 mmol/L (3.5-5.1); Protein, Total 6.8 g/dL (6.4-8.2); Sodium Level 138 mmol/L (136-145)
[2023-02-23] MEDS: 0.9% Normal Saline (500mL Bag) 500 ML 1000 ML IV (18:49)
[2023-02-23 18:50] LABS: Bacteria 0 SEEN /hpf (None Seen); Mucous, Urine 0 SEEN /hpf (<or=2+); Red Blood Cells-Urine 0 SEEN /hpf (0-5)
[2023-02-23 18:55] LABS: Color, Urine Yellow (Yellow); Glucose, Dipstick Normal (Normal); Ketone-Dipstick Negative (Negative); Leukocyte Esterase-Dipstick 25 /ul (Negative); Nitrite-Dipstick Negative (Negative); Occult Blood-Urine Negative /ul (Negative); Protein-Dipstick Negative (Negative); Specific Gravity, Urine 1.015 (1.002-1.030); Urine Bilirubin Dipstick Negative (Negative); Urine Clarity Clear (Clear); Urine Urobilinogen Normal (Normal)
--- NOTE | 2023-02-23 19:00 | RAD_ITS ---
STUDY: X-RAY CHEST REASON FOR EXAM: Female, 87 years old. Trauma TECHNIQUE: Single AP portable view of the chest. COMPARISON: 04/26/2022 FINDINGS: The lungs are clear and expanded. There is no demonstrated pleural abnormality. Normal size heart. Normal mediastinum and amaya. Normal visualized pulmonary arteries. Normal visualized aortic arch and descending thoracic aorta. There is a dextroscoliosis of the thoracic spine. Normal visualized ribs, clavicles, and shoulders. There is no demonstrated abnormality of the visualized soft tissue structures of the upper abdomen. RAD/Chest 1 View (Portable) IMPRESSION: Normal x-ray examination of the chest. Electronically Signed: Roger Nicolas MD at 19:30 EDT ,
[2023-02-23 19:27] LABS: Squamous Epithelial Cells - UA 0-5 SEEN /hpf (5-10); White Blood Cells 0-5 SEEN /hpf (0-5)
--- NOTE | 2023-02-23 20:22 | ED.RN ---
PT IS UNABLE TO STAY WAKE TO ATTEMPT AMBULATION, FAMILY STATES THIS IS ABNORMAL FOR PT. PHYSICIAN IS AWARE
[2023-02-23 20:23] VITALS: BP 129/77; PULSE 62; RESP 15; O2SAT 95; O2SAT 97
--- NOTE | 2023-02-23 21:13 | HP.PCM.HOS_ITS ---
HPI - General General Date of Admission: 02/23/23 Date of Service: 02/23/23 Chief Complaint: Recurrent fall, generalized weakness and lower back pain HPI Narrative MADY FOFANA, is a 87 F with multiple comorbidities brought to ED by EMS from [facility] living [facility]. Patient is accompanied by her daughter and son-in-law. Patient has fallen 3 times today and 5 times this week. She is too weak and not having adequate water intake and food. As per the ER physician when she came in she was not talking much but when I saw patient was talking although she takes time to answer. She also has dementia and does not remember the month and the year but remembers her name date of her daughter's name. Vitals in the EMS and ED are normal range She also missed a step about 2 days ago and hit her head. No loss of consci ousness. No major injuries. I did not feel major hematoma or swelling patient does not have fever at chills, chest pain shortness of breath diarrhea alteration of bowel movement or acute urinary symptoms including burning micturition. No GI bleed. She recently had influenza and pneumonia shot. [facility] Medical History Anxiety Atrial fibrillation Chest pain Dementia Depression Groin pain, chronic, left Hyperlipidemia Hypertension Hypothyroidism Hypothyroidism Non-smoker Nonrheumatic mitral (valve) prolapse Premature atrial contractions Premature ventricular contraction Spinal stenosis Home Medications aspirin 81 mg tablet,delayed release 81 mg PO DAILY@0800 11/18/13 [History Last Taken Unknown] multivitamin with folic acid 400 mcg tablet 1 tab PO DAILY 11/18/13 [History Last Taken Unknown] simvastatin 20 mg tablet 20 mg PO QHS 10/16/16 [History Last Taken Unknown] levothyroxine 88 mcg tablet 88 mcg PO QDAY 11/21/17 [History Last Taken Unknown] losartan 50 mg tablet 50 mg PO QDAY #30 tabs 11/22/17 [Rx Last Taken Unknown] albuterol sulfate 90 mcg/actuation aerosol inhaler (Proventil HFA) 2 puff inhalation Q4H PRN sob 03/14/18 [History Last Taken Unknown] atenolol 50 mg tablet 50 mg PO DAILY Pt is completely OUT #90 tabs 10/10/21 [Rx Last Taken Unknown] chlorthalidone 25 mg tablet 25 mg PO DAILY 02/23/23 [History Last Taken Unknown] fluoxetine 20 mg capsule (Prozac) 20 mg PO DAILY 02/23/23 [History Last Taken Unknown] hydroxyzine pamoate 25 mg capsule (Vistaril) 25 mg PO DAILY 02/23/23 [History Last Taken Unknown] quetiapine 25 mg tablet 25 mg PO DAILY 02/23/23 [History Last Taken Unknown] quetiapine 50 mg tablet 50 mg PO BID 02/23/23 [History Last Taken Unknown] rivastigmine 4.6 mg/24 hour transdermal patch 4.6 mg transdermal DAILY 02/23/23 [History Last Taken Unknown] Allergy/AdvReac Type Severity Reaction Status Date / Time clindamycin Allergy Vomiting Verified 04/26/22 22:30 Penicillins [PCN] Allergy Hives Verified 04/26/22 22:30 Sulfa (Sulfonamide Allergy Hives Verified 04/26/22 22:30 Antibiotics) atorvastatin calcium AdvReac Diarrhea Verified 04/26/22 22:30 [From Lipitor] hydromorphone HCl AdvReac Vomiting Verified 04/26/22 22:30 [From Dilaudid] morphine AdvReac Vomiting Verified 04/26/22 22:30 potassium AdvReac Diarrhea Verified 04/26/22 22:30 procaine [From Novocain] AdvReac Other Verified 04/26/22 22:30 tetracycline [Tetracycline] AdvReac Vomiting Verified 04/26/22 22:30 Family History Father CAD (coronary artery disease) ICD (implantable cardioverter-defibrillator) in place Brother Pacemaker Brother CAD (coronary artery disease) Myocardial infarction Surgical History History of cataract extraction History of cholecystectomy History of hernia repair History of hysterectomy History of knee replacement procedure of left knee History of knee replacement procedure of right knee Social History Smoking Status: Never smoker alcohol intake: never substance use type: does not use caffeine: No frequency: does not exercise ROS ROS Narrative 14 ROS is incomplete because of patient's history of dementia. It is mainly asked from her daughter near the bedside who is wheel fitter and her son-in-law. Recently she has decreased in activity and increased forgetfulness and memory. Rest of the features are negative except already mentioned in HPI. Vital Signs Vital Signs Vital Signs: 02/23/23 17:32 02/23/23 20:23 02/23/23 20:23 Temperature 97 F L Temperature Source Temporal Pulse Rate 62 Respiratory Rate 15 Respiratory Effort Normal Non-Labored Respiratory Depth Normal Respiratory Pattern Normal Blood Pressure 129/77 H Blood Pressure Mean 94 Pulse Ox 97 95 Oxygen Delivery Method Room Air Room Air Weight Weight: 172 lb 13.478 oz Body Mass Index (BMI) 26.2 Physical Exam Narrative General: Awake, alert, oriented to place and person but disoriented to time, Cooperative HEENT: Atraumatic, PERRLA, EOMI, Normocephalic Oral: Oral mucosa very dry no Gingival or Mucosal Lesions/ Ulcerations Neck: Supple, No JVD, Negative Carotid Bruits Lungs: Air entry diminished in bilateral lung bases. No crepitation/rhonchi Cardiovascular: Regular rate, Regular Rhythm, Normal S1, Normal S2, No murmurs Abdomen: Bowel Sounds Present, Soft, Non Tender, Non-Distended : No renal angle tenderness. No suprapubic tenderness. Extremities: No edema, Capillary Refill Less than 3 Seconds Skin: Skin bruise over left lateral hip region and gluteal region. Musculoskeletal: No acute tenderness of the bilateral hip region, trochanteric region. ROM maintained. Scar of knee replacement. Neurological: Cranial nerves II-XII grossly intact, DTR 2+/4. No acute focal neurological deficit. Muscle strength 4+/5 at hip and knee regions. Psych/Mental Status: Flat affect. Dementia Results Lab / Micro Data 02/23/23 18:00 02/23/23 18:00 Labs: Laboratory Results - last 24 hr 02/23/23 18:00: WBC 6.4, RBC 3.84 L, Hgb 11.6 L, Hct 34.9 L, MCV 90.9, MCH 30.2, MCHC 33.2, RDW Std Deviation 41.9, RDW Coeff of Noah 12.6, Plt Count 198, MPV 10.1, Immature Gran % (Auto) 0.500, Neut % (Auto) 69.0, Lymph % (Auto) 18.1 L, [place] % (Auto) 9.6, Eos % (Auto) 2.5, Baso % (Auto) 0.3, Absolute Neuts (auto) 4.4, Absolute Lymphs (auto) 1.15, Nucleated RBC % 0, Sodium 138, Potassium 3.8, Chloride 105, Carbon Dioxide 25.0, Anion Gap 8, BUN 74 H, Creatinine 1.34 H, Estim Creat Clear Calc 30.96, Est GFR (MDRD) Af Amer 48 L, Est GFR (MDRD) Non-Af 40 L, BUN/Creatinine Ratio 55.2 H, Glucose 98, Calcium 9.2, Total Bilirubin 0.80, AST 31, ALT 26, Alkaline Phosphatase 86, Total Protein 6.8, Albumin 3.7, Globulin 3.1, Albumin/Globulin Ratio 1.2 02/23/23 18:47: Urine Color Yellow, Urine Clarity Clear, Urine pH 5.0, Ur Specific [place] 1.015, Urine Protein Negative, Urine Glucose (UA) Normal, Urine Ketones Negative, Urine Occult Blood Negative, Urine Nitrite Negative, Urine Bilirubin Negative, Urine Urobilinogen Normal, Ur Leukocyte Esterase 25 H, Urine RBC 0 SEEN, Urine WBC 0-5 SEEN, Ur Squamous Epith Cells 0-5 SEEN, Urine Bacteria 0 SEEN, Urine Mucus 0 SEEN Micro: Microbiology 02/23/23 18:18 Nasal Secretion SARS-CoV-2 & FLU Antigen (Rapid) - Final Radiology Impression Brain CT 02/23/23 18:04 IMPRESSION: Normal unenhanced CT scan of the brain. Electronically Signed: Roger Nicolas MD at 19:55 EDT , Pelvis X-Ray 02/23/23 18:04 IMPRESSION: Normal x-ray examination of the pelvis. Electronically Signed: Roger Nicolas MD at 19:31 EDT , Cervical Spine CT 02/23/23 18:08 IMPRESSION: No acute fracture or subluxation. Electronically Signed: Roger Nicolas MD at 19:59 EDT , Chest X-Ray 02/23/23 19:00 IMPRESSION: Normal x-ray examination of the chest. Electronically Signed: Roger Nicolas MD at 19:30 EDT , Assessment & Plan Assessment/Plan (1) Declining functional status: (2) Multiple falls: PLAN: Plan This 87-year-old female is being admitted for recurrent fall, failure to thrive and dehydration 1. SUKHI most likely prerenal: Patient baseline creatinine runs around 0.7-1.0. Admitting BUN/creatinine 74/1.34, BUN/creatinine ratio 55. Serum sodium potassium and bicarb in normal range. Anion gap 8. Started on Ringer lactate 100 Emmel per hour for 2 L. Reevaluate kidney for electrolytes tomorrow morning. 2. Acute on recurrent fall: Patient did not had loss of consciousness. PT and OT evaluation. Mild bruise over left hip region. Patient fell on the left lateral side of her head but no major hematoma on exam. Patient had multiple imaging in ER, individually reviewed including CT head and CT C-spine which did not show any acute change. Furthermore patient had pelvics x-ray which reported normal. Chest x-ray does not show acute abnormality. 3. Advanced dementia with recent worsening, confusion, forgetfulness possible metabolic encephalopathy from dementia: When patient came in she was very confused and not talking but sister talking later on. Try to correct disorder. No burning micturition or acute urinary changes. LE 25. WBC 0-5 RBC 0. Nitrite negative. Bacteria 0. I do not suspect patient has UTI. 4. Multiple other comorbidities include hypertension, dyslipidemia, PVCs: Twelve-lead EKG individually reviewed. Normal sinus rhythm, first-degree block with LAD. Incomplete right bundle branch block. QTc 497 mildly prolonged. Living will/advanced directive/end of life care: Patient does have living will or advanced directive. Her daughter near the bedside is power of wind energy systems installer for health. After discussion of benefits/risks procedures involved with full code, DNR CC arrest and DNR CC, POA elected for full code. Patient has dementia and herself cannot make decision because of the complexity of the advanced directive and living will. Patient does want artificial life support including intubation, tube feed, ventilator and/chest compression, central venous catheter, vasopressor and DC shock if needed as per the daughter Total time spent in [id number] encounter in discussion of advanced directive 17 minutes. Microbiology Past 72 Hours 02/23/23 18:18 Nasal Secretion SARS-CoV-2 & FLU Antigen (Rapid) - Final Laboratory Results 02/23/23 18:00: WBC 6.4, RBC 3.84 L, Hgb 11.6 L, Hct 34.9 L, MCV 90.9, MCH 30.2, MCHC 33.2, RDW Std Deviation 41.9, RDW Coeff of Noah 12.6, Plt Count 198, MPV 10.1, Immature Gran % (Auto) 0.500, Neut % (Auto) 69.0, Lymph % (Auto) 18.1 L, [place] % (Auto) 9.6, Eos % (Auto) 2.5, Baso % (Auto) 0.3, Absolute Neuts (auto) 4.4, Absolute Lymphs (auto) 1.15, Nucleated RBC % 0, Sodium 138, Potassium 3.8, Chloride 105, Carbon Dioxide 25.0, Anion Gap 8, BUN 74 H, Creatinine 1.34 H, Estim Creat Clear Calc 30.96, Est GFR (MDRD) Af Amer 48 L, Est GFR (MDRD) Non-Af 40 L, BUN/Creatinine Ratio 55.2 H, Glucose 98, Calcium 9.2, Magnesium 2.3, Total Bilirubin 0.80, AST 31, ALT 26, Alkaline Phosphatase 86, Total Protein 6.8, Albumin 3.7, Globulin 3.1, Albumin/Globulin Ratio 1.2 02/23/23 18:47: Urine Color Yellow, Urine Clarity Clear, Urine pH 5.0, Ur Specific [place] 1.015, Urine Protein Negative, Urine Glucose (UA) Normal, Urine Ketones Negative, Urine Occult Blood Negative, Urine Nitrite Negative, Urine Bilirubin Negative, Urine Urobilinogen Normal, Ur Leukocyte Esterase 25 H, Urine RBC 0 SEEN, Urine WBC 0-5 SEEN, Ur Squamous Epith Cells 0-5 SEEN, Urine Bacteria 0 SEEN, Urine Mucus 0 SEEN Clinical Impression(s) from Imaging Studies Brain CT 02/23/23 18:04 IMPRESSION: Normal unenhanced CT scan of the brain. Pelvis X-Ray 02/23/23 18:04 IMPRESSION: Normal x-ray examination of the pelvis. Cervical Spine CT 02/23/23 18:08 IMPRESSION: No acute fracture or subluxation. Chest X-Ray 02/23/23 19:00
[2023-02-23 21:43] LABS: Magnesium 2.3 mg/dL (1.6-2.6)
[2023-02-23 22:08] VITALS: BP 116/77; PULSE 81; RESP 16; TEMP 36.1; O2SAT 97
[2023-02-23 23:33] VITALS: O2SAT 97
[2023-02-23 23:37] VITALS: BMI 26.9
[2023-02-23 23:42] VITALS: BP 146/53; PULSE 61; RESP 18; TEMP 36.6; O2SAT 94
[2023-02-24] MEDS: Lactated Ringers 1,000 ML 100 ML IV ×2 (00:14→10:02)
[2023-02-24] MEDS: 0.9% Saline Lock 10 ML Syringe IV (00:15)
[2023-02-24] MEDS: Levothyroxine 88 MCG Tablet PO (06:23)
[2023-02-24 06:30] VITALS: BP 123/59; PULSE 69; RESP 16; TEMP 36.6; O2SAT 97
[2023-02-24 06:50] VITALS: O2SAT 96
[2023-02-24 07:45] LABS: Anion Gap 7 (5-15); BUN 55 mg/dL (7-18); Calcium,Total 8.4 mg/dL (8.5-10.1); Chloride 110 mmol/L (98-107); EST Glomerular Filtration Rate 63 mL/min (>60); Est Glom Filt Rate - Afr Amer 76 mL/min (>60); Glucose 80 mg/dL (74-106); Potassium 3.4 mmol/L (3.5-5.1); Sodium Level 143 mmol/L (136-145)
[2023-02-24] MEDS: Aspirin E.C. 81 MG Tablet PO (10:08)
[2023-02-24] MEDS: Enoxaparin 30 MG/0.3 ML Syringe SC (10:09)
[2023-02-24] MEDS: Multivitamins,Therapeutic Tablet 1 TABLET PO (10:09)
[2023-02-24] MEDS: Menthol/Lanolin/Calamine/Znox 113 GM Tube 1 APPLIC TOPICAL ×2 (10:09→20:50)
[2023-02-24] MEDS: Atenolol 50 MG Tablet PO (10:10)
[2023-02-24 10:21] VITALS: BP 124/71; PULSE 82; RESP 18; TEMP 36.7; O2SAT 100
--- NOTE | 2023-02-24 13:00 | CASEMGMT ---
Social Work SW called [facility] to confirm if patient is able to return to them when medically ready. [facility] reports patient is able to return. Eliza Whitney DEVELOPMENTAL MATHEMATICS INSTRUCTOR, BAR ATTENDANT
--- NOTE | 2023-02-24 13:34 | CASEMGMT ---
MELCHOR SARAVIA in to pt. room to see if HCPOA was in with pt. No one else is in the room with pt. at this time. I introduced myself to pt. and explained ,my role at [facility]. Pt. as alert and talkative (pt's conversation was at times confused). Pt. denies having any needs at this time. MELCHOR SARAVIA called pt's first (phone call would not go through), and then called her daughter, Alexander (listed on face sheet) in order to obtain HCPOA's, Sandy Delatorrecordellmarlo,phone number. Alexander provided a number for Sandy of [phone], but states Sandy lives in [place] and is sick right now so may not be able to answer (Alexander state she hs been trying to tae care of things for pt now). Alexander states she has a few questions about how pt. is doing so i let her know I will ask pt's nurse to give her a call for an update. Pt's nurse updated on this request. MELCHOR SARAVIA called Sandy Albright and explained MARISCAL form to her. Sandy verbalized understanding, and SW acted as a second witness to this. ?Original form placed in pt?s chart and copy provided to pt.
[2023-02-24 13:55] VITALS: BP 145/81; PULSE 74; RESP 18; TEMP 36.7; O2SAT 100
--- NOTE | 2023-02-24 14:27 | CASEMGMT ---
Addendum entered by Gabrielle Weiner 02/24/23 15:08: INNOVATION MANAGER provided RN CM with list of HHC with pt. and daughter's top 3 choices: (1) [facility], (2) [facility], and (3) [facility]. RN CM to follow-up on Sunday. Patient's Choice list given back to pt. and her daughter. Pt's parish states pt. scratched her Left arm and needs a bandaid. I informed them I will let her nurse know. Pt. and Pt.'s daughter do not voice any further questions/concerns at this time. RN CM updated pt's nurse about needing bandage for arm. Addendum entered by Gabrielle Weiner 02/24/23 14:56: MELCHOR SARAVIA in to pt. room. Patient and pt's daughter Alexander were provided a list of HHC providers including quality and resource use data and consistent with the patient?s preferred geographic region, medical needs, and insurance network were provided from the [employer] Guide. Informed them that we will follow-up with the on their top 3 choices on Sunday. Original Note: Pt's daughter and HCPOA, Sandy Albright, requests PT for HHC and states she is fine with her sister, Alexander picking the HHC agency. I called Sandy and informed her that HHC will be set up on Sunday. Sandy voiced understanding of this.
--- NOTE | 2023-02-24 15:02 | PCM.PN.HOSP ---
Reason for Visit Reason for Visit: Diagnoses Repeated falls (02/23/23) Other malaise (02/23/23) Subjective Subjective Patient seen at bedside this morning. Sitting comfortably in bedside chair, no acute distress. Patient is alert and answering most questions appropriately on my interview. Does state that she is experienced several falls here recently. States she feels somewhat weaker than her baseline and the falls are just a product of her getting older. She denies any lightheadedness or dizziness with standing. She has been able to ambulate to the bathroom and back this morning without significant issue. Denies any fevers or chills. Denies any other pain or discomfort. No other acute concerns. Objective Data Objective Data Vital Signs: Vital Signs Temp Pulse Resp BP Pulse Ox O2 Del Method 98.0 F 74 18 145/81 H 100 Room Air 02/24/23 13:55 02/24/23 13:55 02/24/23 13:55 02/24/23 13:55 02/24/23 13:55 02/24/23 13:55 Oxygen Delivery Method Room Air Weight: 80.15 kg Body Mass Index (BMI) 26.9 Intake & Output: Intake and Output for Last 24 Hours 02/22/23 02/23/23 02/24/23 23:59 23:59 23:59 Intake Total 500 / 500 1945 194 Balance 500 / 500 1945 / 1945 Lab / Micro Data 02/23/23 18:00 02/24/23 06:07 Labs: Laboratory Results - last 24 hr 02/23/23 18:00: WBC 6.4, RBC 3.84 L, Hgb 11.6 L, Hct 34.9 L, MCV 90.9, MCH 30.2, MCHC 33.2, RDW Std Deviation 41.9, RDW Coeff of Noah 12.6, Plt Count 198, MPV 10.1, Immature Gran % (Auto) 0.500, Neut % (Auto) 69.0, Lymph % (Auto) 18.1 L, Callahan % (Auto) 9.6, Eos % (Auto) 2.5, Baso % (Auto) 0.3, Absolute Neuts (auto) 4.4, Absolute Lymphs (auto) 1.15, Nucleated RBC % 0, Sodium 138, Potassium 3.8, Chloride 105, Carbon Dioxide 25.0, Anion Gap 8, BUN 74 H, Creatinine 1.34 H, Estim Creat Clear Calc 30.96, Est GFR (MDRD) Af Amer 48 L, Est GFR (MDRD) Non-Af 40 L, BUN/Creatinine Ratio 55.2 H, Glucose 98, Calcium 9.2, Magnesium 2.3, Total Bilirubin 0.80, AST 31, ALT 26, Alkaline Phosphatase 86, Total Protein 6.8, Albumin 3.7, Globulin 3.1, Albumin/Globulin Ratio 1.2 02/23/23 18:47: Urine Color Yellow, Urine Clarity Clear, Urine pH 5.0, Ur Specific [place] 1.015, Urine Protein Negative, Urine Glucose (UA) Normal, Urine Ketones Negative, Urine Occult Blood Negative, Urine Nitrite Negative, Urine Bilirubin Negative, Urine Urobilinogen Normal, Ur Leukocyte Esterase 25 H, Urine RBC 0 SEEN, Urine WBC 0-5 SEEN, Ur Squamous Epith Cells 0-5 SEEN, Urine Bacteria 0 SEEN, Urine Mucus 0 SEEN 02/24/23 06:07: Sodium 143, Potassium 3.4 L, Chloride 110 H, Carbon Dioxide 26.0, Anion Gap 7, BUN 55 H, Creatinine 0.90, Estim Creat Clear Calc 46.10, Est GFR (MDRD) Af Amer 76, Est GFR (MDRD) Non-Af 63, BUN/Creatinine Ratio 61.0 H, Glucose 80, Calcium 8.4 L, TSH 0.60 Micro: Microbiology 02/23/23 18:18 Nasal Secretion SARS-CoV-2 & FLU Antigen (Rapid) - Final Radiography Diagnostic Testing: Radiology Impression Brain CT 02/23/23 18:04 IMPRESSION: Normal unenhanced CT scan of the brain. Electronically Signed: Roger Nicolas MD at 19:55 EDT , Pelvis X-Ray 02/23/23 18:04 IMPRESSION: Normal x-ray examination of the pelvis. Electronically Signed: Roger Nicolas MD at 19:31 EDT , Cervical Spine CT 02/23/23 18:08 IMPRESSION: No acute fracture or subluxation. Electronically Signed: Roger Nicolas MD at 19:59 EDT , Chest X-Ray 02/23/23 19:00 IMPRESSION: Normal x-ray examination of the chest. Electronically Signed: Roger Nicolas MD at 19:30 EDT , Physical Exam Const alert and no apparent distress Constitutional Narrative: Pleasant elderly female, sitting comfortably in bedside chair, alert, answering most questions appropriately, no acute distress. General Appearance: cooperative and comfortable HEENT normocephalic, head/scalp atraumatic, hearing grossly normal bilaterally, nasal mucous membranes and turbinates normal and moist oral mucous membranes Eyes PERRL, EOMs intact bilaterally and conjunctivae normal Neck full ROM, no lymphadenopathy and supple Lymph Lymphatic: no lymphadenopathy noted Chest inspection of chest normal Resp normal respiratory effort, normal air movement, no use of accessory muscles and clear to auscultation bilaterally Cardio regular rate, regular rhythm, no murmurs and peripheral pulses 2+ throughout GI normal to inspection, nondistended, normoactive bowel sounds, soft to palpation, non-tender and non-distended Back/Spine normal ROM Extremity normal to inspection, full ROM and no pedal edema Skin no rashes or lesions noted Psych mental status grossly normal Assessment & Plan Assessment/Plan (1) Declining functional status: PLAN: Plan Patient is an 87-year-old female with history of dementia, history of falls, hypertension, hypothyroidism and depression who presented to [facility] ED on 02/23/2023 after a fall. 1. Fall, debility Patient resides in memory care unit as noted below. Accompanied by son and [id number] on admission. Had reportedly fallen 3 times on day of admission and 5 times during the week. Patient reported generalized weakness and poor p.o. intake. CT brain and C-spine negative, chest x-ray negative, pelvic x-ray negative for any acute pathology. UA unremarkable. ? PT/OT/case management following. Patient did well with therapy. Per case management, will be okay to return to memory care unit with therapy services able to come into unit as needed. If remains stable, likely okay for discharge tomorrow. 2. Dementia ? Resides in the memory care unit at [facility]. PT/OT/case management following as above, okay for return to memory care unit on discharge with therapy services as needed. 3. SUKHI, resolved Presumed prerenal in setting of poor p.o. intake prior to admission. BUN 74, creatinine 1.34 on admit. Baseline creatinine around 0.7-0.9. Creatinine improved to 0.9 with IV fluids. Patient reports good urine output. ? Encouraged p.o. intake as able. No need to monitor further labs. Chronic medical conditions: ? Hypertension: Continue home atenolol, holding home chlorthalidone and losartan for now, will be okay to resume on discharge. ? Hypothyroidism: Continue home Synthroid. ? Depression: Continue home fluoxetine and Seroquel. DVT prophylaxis: SCDs CODE STATUS: Full code, verified Expected disposition: Back to memory care unit, tomorrow Total clinical time spent by myself addressing the patient's medical issues, reviewing all the data, and collaborating with patient's care team: 35 minutes. Charges/Coding Visit Charges Inpatient E&M: 40949 Subs Hosp L2
[2023-02-24] MEDS: hydrOXYzine PAM 25 MG Capsule PO ×2 (16:09→22:34)
[2023-02-24 17:49] VITALS: PULSE 86
[2023-02-24 20:43] VITALS: BP 108/54; PULSE 74; RESP 16; TEMP 36.9; O2SAT 98
[2023-02-25 03:37] VITALS: BP 138/55; PULSE 70; RESP 16; TEMP 36.8; O2SAT 98
[2023-02-25] MEDS: Levothyroxine 88 MCG Tablet PO (06:06)
[2023-02-25 07:58] VITALS: O2SAT 96
[2023-02-25] MEDS: Multivitamins,Therapeutic Tablet 1 TABLET PO (08:13)
[2023-02-25] MEDS: Aspirin E.C. 81 MG Tablet PO (08:13)
[2023-02-25 09:00] VITALS: PULSE 94; RESP 18; O2SAT 97
[2023-02-25 09:30] VITALS: BP 105/50; PULSE 94; RESP 18; TEMP 36.6; O2SAT 97
[2023-02-25] MEDS: Enoxaparin 30 MG/0.3 ML Syringe SC (09:58)
[2023-02-25] MEDS: QUEtiapine 25 MG Tablet PO (09:59)
[2023-02-25] MEDS: Menthol/Lanolin/Calamine/Znox 113 GM Tube 1 APPLIC TOPICAL (09:59)
--- NOTE | 2023-02-25 12:36 | DCINST_ITS ---
Discharge Instructions Diet Discharge Diet: No restrictions Activity Discharge Activity: Return to Normal Activity Weight Bearing Status: Full weight bearing Follow Up Care Please Follow Up With: José Miguel Frias MD When: As needed Test Results: Test results from this visit will be discussed in further detail at your follow- up appointment, if applicable. Pending Tests Upon Discharge: None Discharge Plan Admission Admit Date/Time: 02/23/23 21:07 Primary Reason for Your Visit: Fall, declining functional status Attending Provider: Will Bah Primary Care Provider: José Miguel Frias Consulting Providers: Jhonathan Londono Instructions Additional Instructions / Restrictions: Please STOP taking the following medications on discharge: - atenolol - chlorthalidone - losartan I am concerned that these medications were causing the patient's blood pressure to drop low and make her more susceptible to having falls. Her blood pressure was within normal range throughout her hospitalization here off of those medications. She can continue all other home medications as normal. Home health care will be set up tomorrow and will come to see her in the memory care unit within the next few days. Discharge Orders/Prescriptions Prescriptions: Continued levothyroxine 88 mcg tablet 88 mcg PO QDAY Proventil HFA 90 mcg/actuation HFA aerosol inhaler 2 puff INHALATION Q4H PRN (Reason: sob) aspirin 81 MG tablet 81 mg PO DAILY@0800 multivitamin with folic acid 1 TABLET tablet 1 tab PO DAILY simvastatin 20 MG tablet 20 mg PO QHS fluoxetine [Prozac] 20 mg capsule 20 mg PO DAILY Patient Comments: Take 1 capsule By Mouth every morning rivastigmine 4.6 mg/24 hour patch 24 hour 4.6 mg transdermal DAILY melatonin 3 mg capsule 3 mg PO QHS Changed quetiapine 25 mg tablet 25 mg PO BID 30 Days Qty: 60 0RF Discontinued chlorthalidone 25 mg tablet 25 mg PO DAILY hydroxyzine pamoate [Vistaril] 25 mg capsule 25 mg PO TID PRN Patient Comments: Take 1 capsule by mouth once a day @4pm for Anxiety/Agitation along with a tid prn order Rx Instructions: 4 pm quetiapine 50 mg tablet 50 mg PO BID losartan 50 mg tablet 50 mg PO QDAY Qty: 30 11RF atenolol 50 mg tablet 50 mg PO DAILY Qty: 90 3RF Referrals / Follow Up: José Miguel Frias MD [Primary Care Provider] - Disposition Disposition (needs filled in before D/C Order can be placed): Assisted Living
--- NOTE | 2023-02-25 12:42 | DS.PCM_ITS ---
Providers Date of Admission: 02/23/23 Date of Discharge: 02/25/23 Primary Care Physician: Dr. José Miguel Frias MD Reason For Visit: RECURRENT FALL Diagnosis Discharge Diagnosis (1) Declining functional status: Status: Acute Code(s): R53.81 - Other malaise Medications at Discharge Home Medications aspirin 81 mg tablet,delayed release 81 mg PO DAILY@0800 11/18/13 multivitamin with folic acid 400 mcg tablet 1 tab PO DAILY 11/18/13 simvastatin 20 mg tablet 20 mg PO QHS 10/16/16 levothyroxine 88 mcg tablet 88 mcg PO QDAY 11/21/17 albuterol sulfate 90 mcg/actuation aerosol inhaler (Proventil HFA) 2 puff inhalation Q4H PRN sob 03/14/18 fluoxetine 20 mg capsule (Prozac) 20 mg PO DAILY 02/23/23 rivastigmine 4.6 mg/24 hour transdermal patch 4.6 mg transdermal DAILY 02/23/23 melatonin 3 mg capsule 3 mg PO QHS 02/25/23 quetiapine 25 mg tablet 25 mg PO BID depression 30 days #60 tabs 02/25/23 Hospital Course Operations None Procedures - (CT brain and cervical spine without contrast, chest x-ray, pelvic x-ray) Summary of Care Provided Minutes Spent on Discharge: 35 Hospital Course: Patient is an 87-year-old female with history of dementia, history of falls, hypertension, hypothyroidism and depression who presented to [facility] ED on 02/23/2023 after a fall. Short hospital course with multiple medical conditions addressed as below. Fall, debility: Patient resides in memory care unit as noted below. Accompanied by son and [id number] on admission. Had reportedly fallen 3 times on day of admission and 5 times during the week. Patient reported generalized weakness and poor p.o. intake. CT brain and C-spine negative, chest x-ray negative, pelvic x-ray negative for any acute pathology. UA unremarkable. PT/OT/case management followed. Patient actually did very well with therapy, was able to ambulate on her own around the room without any unsteadiness or concern for falls. Home health care certification pending, should be excepted on 02/26. Patient okay for discharge back to memory care unit with home health care therapy services able to see her there as needed. SUKHI, resolved: Presumed prerenal in setting of poor p.o. intake prior to admission. BUN 74, creatinine 1.34 on admit. Baseline creatinine around 0.7- 0.9. Creatinine improved to 0.9 with IV fluids. Patient reported good urine output throughout admission. Hypertension: On home atenolol, chlorthalidone and losartan. These medications were held during this admission and patient's blood pressure remained normotensive to mildly hypertensive. Have concern that these medications may have contributed to low blood pressures and falls at home. We will discontinue all of these medications at discharge. Monitor BP in outpatient setting, can consider restarting as needed. Dementia: Resides in the memory care unit at [facility]. PT/OT/case management followed as above, okay for return to memory care unit on discharge with therapy services needed. Discharge diagnoses: ? Fall ? Debility ? SUKHI, resolved ? Hypertension ? Dementia ? Hypothyroidism ? Depression Total clinical time spent by myself addressing the patient's discharge needs: 35 minutes. Physical Exam Const alert and no apparent distress Constitutional Narrative: Pleasant elderly female, sitting comfortably in bedside chair, alert, answering most questions appropriately, no acute distress. General Appearance: cooperative and comfortable HEENT normocephalic, head/scalp atraumatic, hearing grossly normal bilaterally, nasal mucous membranes and turbinates normal and moist oral mucous membranes Eyes PERRL, EOMs intact bilaterally and conjunctivae normal Neck full ROM, no lymphadenopathy and supple Lymph Lymphatic: no lymphadenopathy noted Chest inspection of chest normal Resp normal respiratory effort, normal air movement, no use of accessory muscles and clear to auscultation bilaterally Cardio regular rate, regular rhythm, no murmurs and peripheral pulses 2+ throughout GI normal to inspection, nondistended, normoactive bowel sounds, soft to palpation, non-tender and non-distended Back/Spine normal ROM Extremity normal to inspection, full ROM and no pedal edema Skin no rashes or lesions noted Psych mental status grossly normal Weight / BMI Weight Weight: 80.15 kg Body Mass Index (BMI) 26.9 ABG / Lab / Microbiology Data 02/23/23 18:00 02/24/23 06:07 Microbiology: Microbiology 02/23/23 18:47 Urine Catheter - Catheter Urine Culture - Preliminary Culture exhibits no growth. 02/23/23 18:18 Nasal Secretion SARS-CoV-2 & FLU Antigen (Rapid) - Final D/C Instructions Discharge Diet: No restrictions Weight Bearing Status: Full weight bearing Pending Tests Upon Discharge: None Please Follow Up With: José Miguel Frias MD When: As needed Meaningful Use Info Meaningful Use Diagnoses (Choose all that apply): None applicable Discharge Plan Admission Admit Date/Time: 02/23/23 21:07 Primary Reason for Your Visit: Fall, declining functional status Attending Provider: Will Bah Primary Care Provider: José Miguel Frias Consulting Providers: Jhonathan Londono Instructions Additional Instructions / Restrictions: Please STOP taking the following medications on discharge: - atenolol - chlorthalidone - losartan I am concerned that these medications were causing the patient's blood pressure to drop low and make her more susceptible to having falls. Her blood pressure was within normal range throughout her hospitalization here off of those medications. She can continue all other home medications as normal. Home health care will be set up tomorrow and will come to see her in the memory care unit within the next few days. Discharge Orders/Prescriptions Prescriptions: Continued levothyroxine 88 mcg tablet 88 mcg PO QDAY Proventil HFA 90 mcg/actuation HFA aerosol inhaler 2 puff INHALATION Q4H PRN (Reason: sob) aspirin 81 MG tablet 81 mg PO DAILY@0800 multivitamin with folic acid 1 TABLET tablet 1 tab PO DAILY simvastatin 20 MG tablet 20 mg PO QHS fluoxetine [Prozac] 20 mg capsule 20 mg PO DAILY Patient Comments: Take 1 capsule By Mouth every morning rivastigmine 4.6 mg/24 hour patch 24 hour 4.6 mg transdermal DAILY melatonin 3 mg capsule 3 mg PO QHS Changed quetiapine 25 mg tablet 25 mg PO BID 30 Days Qty: 60 0RF Discontinued chlorthalidone 25 mg tablet 25 mg PO DAILY hydroxyzine pamoate [Vistaril] 25 mg capsule 25 mg PO TID PRN Patient Comments: Take 1 capsule by mouth once a day @4pm for Anxiety/Agitation along with a tid prn order Rx Instructions: 4 pm quetiapine 50 mg tablet 50 mg PO BID losartan 50 mg tablet 50 mg PO QDAY Qty: 30 11RF atenolol 50 mg tablet 50 mg PO DAILY Qty: 90 3RF Referrals / Follow Up: José Miguel Frias MD [Primary Care Provider] - Disposition Disposition (needs filled in before D/C Order can be placed): Assisted Living Charges/Coding Visit Charges Inpatient E&M: 60515 Disch Hosp >30min
[2023-02-25 13:22] VITALS: BP 116/69; PULSE 76; RESP 18; TEMP 36.6; O2SAT 96
--- NOTE | 2023-02-27 09:50 | CASEMGMT ---
Discharge Planning [facility] has accepted patient with soc tomorrow, 02/28. Message left for patients daughter. Karime Stallings, Discharge Planning Asst.
== END 2023-02-25 15:03 | disposition home health service (06) ==
LOC: ED 19:29 → MS3 21:50
PROVIDERS: Admitting Provider Internal Medicine; Emergency Provider Emergency Medicine; PCP Internal Medicine; Visit Provider Hospitalist
DX: R53.81 Other malaise (principal); N17.9 Acute kidney failure, unspecified; F03.90 Unspecified dementia, unspecified severity, without behavioral disturbance, psychotic disturbance, mood disturbance, and anxiety; E78.5 Hyperlipidemia, unspecified; E03.9 Hypothyroidism, unspecified; F32.A Depression, unspecified; Z96.659 Presence of unspecified artificial knee joint; E86.0 Dehydration; I10 Essential (primary) hypertension; Z79.82 Long term (current) use of aspirin; M54.50 Low back pain, unspecified; Z79.899 Other long term (current) drug therapy; R29.6 Repeated falls
CPT/HCPCS: 36415; 70450; 71045; 72125; 72170; 80048; 80053; 81001; 83735; 84443; 85025; 87086; 87428; 93005; 96360; 96361; 96372; 97110; 97116; 97162; 97165; 97802; 99221; 99285; J7040; J7120; A4216; G0378

== ENCOUNTER 2023-09-01 17:41 | Emergency (ER) | payer MEDICARE, SELFPAY ==
[2023-09-01 17:41] VITALS: BP 159/106; PULSE 80; RESP 16; TEMP 36.3; O2SAT 97
[2023-09-01 17:51] VITALS: BMI 28.3
--- NOTE | 2023-09-01 17:55 | RAD_ITS ---
STUDY: X-RAY - RIGHT SHOULDER REASON FOR EXAM: Female, 88 years old. injury TECHNIQUE: 3 view(s) of the shoulder. COMPARISON: None. FINDINGS: There is cephalad migration of the humeral head consistent with rotator cuff pathology. There is degenerative arthrosis of the acromioclavicular joint without inferior osseous spur formation. Normal acromion. Normal humeral head and visualized proximal humerus. The soft tissue structures are unremarkable. Normal visualized pulmonary apex. RAD/Shoulder min 2 Views IMPRESSION: 1. No acute fracture or dislocation. 2. 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 3. Mild acromioclavicular joint arthrosis. Electronically Signed: Roger Nicolas MD at 19:22 EDT ,
--- NOTE | 2023-09-01 17:57 | ED.VIS.FALL ---
HPI HPI - Fall History of Present Illness Chief Complaint: Fall Informant: patient and family Narrative Narrative: History of dementia sent from [place] unwitnessed fall head injury complains of right shoulder right hip pain. Ambulates with a cane. No anticoagulants. Mild headache. No neck chest or back pain. History of bilateral total knee replacements. No hip surgeries. [id number]. [facility] Medical History Anxiety Atrial fibrillation Chest pain Dementia Depression Groin pain, chronic, left Hyperlipidemia Hypertension Hypothyroidism Hypothyroidism Non-smoker Nonrheumatic mitral (valve) prolapse Premature atrial contractions Premature ventricular contraction Spinal stenosis Home Medications aspirin 81 mg tablet,delayed release 81 mg PO DAILY@0800 11/18/13 [History Last Taken Unknown] multivitamin with folic acid 400 mcg tablet 1 tab PO DAILY 11/18/13 [History Last Taken Unknown] simvastatin 20 mg tablet 20 mg PO QHS 10/16/16 [History Last Taken Unknown] levothyroxine 88 mcg tablet 88 mcg PO QDAY 11/21/17 [History Last Taken Unknown] albuterol sulfate 90 mcg/actuation aerosol inhaler (Proventil HFA) 2 puff inhalation Q4H PRN sob 03/14/18 [History Last Taken Unknown] fluoxetine 20 mg capsule (Prozac) 20 mg PO DAILY 02/23/23 [History Last Taken Unknown] rivastigmine 4.6 mg/24 hour transdermal patch 4.6 mg transdermal DAILY 02/23/23 [History Last Taken Unknown] melatonin 3 mg capsule 3 mg PO QHS 02/25/23 [History Last Taken Unknown] quetiapine 25 mg tablet 25 mg PO BID depression 30 days #60 tabs 02/25/23 [Rx Last Taken Unknown] Allergy/AdvReac Type Severity Reaction Status Date / Time clindamycin Allergy Vomiting Verified 09/01/23 17:44 Penicillins [PCN] Allergy Hives Verified 09/01/23 17:44 Sulfa (Sulfonamide Allergy Hives Verified 09/01/23 17:44 Antibiotics) atorvastatin calcium AdvReac Diarrhea Verified 09/01/23 17:44 [From Lipitor] hydromorphone HCl AdvReac Vomiting Verified 09/01/23 17:44 [From Dilaudid] morphine AdvReac Vomiting Verified 09/01/23 17:44 potassium AdvReac Diarrhea Verified 09/01/23 17:44 procaine [From Novocain] AdvReac Other Verified 09/01/23 17:44 tetracycline [Tetracycline] AdvReac Vomiting Verified 09/01/23 17:44 Family History Father CAD (coronary artery disease) ICD (implantable cardioverter-defibrillator) in place Brother Pacemaker Brother CAD (coronary artery disease) Myocardial infarction Surgical History History of cataract extraction History of cholecystectomy History of hernia repair History of hysterectomy History of knee replacement procedure of left knee History of knee replacement procedure of right knee Social History Smoking Status: Never smoker alcohol intake: never substance use type: does not use caffeine: No frequency: does not exercise ROS ROS ED Constitutional Constitutional ED: Denies chills, fever(s) or sweats Eyes Eyes: Denies change in vision ENT ENT ED: Denies dysphagia or sore throat Cardiovascular Cardiovascular: Denies chest pain, leg edema, palpitations or racing heartbeat Respiratory/Chest Respiratory/Chest: Denies cough, dyspnea or dyspnea on exertion Gastrointestinal Gastrointestinal: Denies abdominal pain, diarrhea, nausea or vomiting Genitourinary Genitourinary ED: Denies dysuria, hematuria or urinary frequency Musculoskeletal Musculoskeletal: Reports extremity pain and other Details: Right shoulder and right hip pain patient ; Denies back pain or neck pain Integumentary Denies rash or wounds Neurologic Neurologic: Reports headache(s); Denies paresthesias or weakness EXAM Physical Exam Const Vital Signs: 09/01/23 17:41 09/01/23 17:41 09/01/23 17:51 Temperature 97.4 F L 97.4 F L Temperature Source Temporal Temporal Pulse Rate 80 80 Respiratory Rate 16 16 Respiratory Effort Normal Respiratory Depth Normal Respiratory Pattern Normal Blood Pressure 159/106 H 159/106 H Blood Pressure Mean 123 123 Pulse Ox 97 97 Oxygen Delivery Method Room Air Room Air Room Air 09/01/23 19:48 Temperature 97.9 F Temperature Source Pulse Rate 81 Respiratory Rate 18 Respiratory Effort Respiratory Depth Respiratory Pattern Blood Pressure 146/78 H Blood Pressure Mean 100 Pulse Ox 98 Oxygen Delivery Method Positive well nourished and well developed General Appearance ED: well developed and NAD HEENT Reports normocephalic and moist mucous membranes HEENT Narrative: Swelling noted to right parietal no lacerations. No depressions. normocephalic Eyes PERRL, EOMs intact bilaterally and conjunctivae normal General Eye ED: Yes normal appearance of both eyes Neck full ROM, no lymphadenopathy and supple Neck Narrative: No midline tenderness or step-off. General: Negative for tenderness Chest Wall inspection of chest normal and palpation of chest normal Chest: Negative for tenderness Resp normal respiratory effort and normal air movement Resp Narrative: Symmetric breath sounds Effort and Inspection: symmetric chest movement; Negative for respiratory distress Cardio regular rate, regular rhythm and no murmurs Peripheral Pulses: pulses 2+ throughout GI normal to inspection, nondistended, normoactive bowel sounds and non-tender Palpation: Negative for guarding or rebound tenderness present Back/Spine no CVA tenderness and no thoracic nor lumbar tenderness Back/Spine Narrative: No midline thoracic or lumbar tenderness. No step-offs. Extremity Extremity Narrative: Right upper extremity: Tender palpation proximal shoulder without any deformities. No humeral or elbow tenderness. No wrist tenderness. Left upper extremity: Nontender pulses intact distally. Bilateral logroll negative no shortening or rotation however there is tender palpation lateral hip with no ecchymosis on the right side. No deformities noted. Pulses are intact distally. General Extremety ED: Negative for edema or tenderness General Extremity: Negative for edema Neuro no sensory deficits noted Neuro Narrative: Alert and oriented to person and place, baseline per family. Sensorium / Orientation: awake and alert Skin no rashes or lesions noted and no wounds MDM MDM MDM Narrative Medical decision making narrative: Interventions / MDM: Differential diagnosis: Scalp contusion, Diagnosis considered but do not suspect: Fracture however x-ray negative. Intracranial hemorrhage however CT negative. My EKG interpretation: N/A Imaging independently reviewed and interpreted by myself: CT brain: No acute process. Right shoulder x-ray 4 views: No fracture or dislocation. Right hip and pelvis 3 views: No fracture or dislocation. External documents reviewed: N/A Test considered but not ordered:N/A ED course: Patient dementia unwitnessed fall. Trauma scans head ordered. X-ray right shoulder and hip. Family would like Tylenol with codeine which was ordered. 185: My review of imaging is all negative. She is able to weight-bear and ambulate with her cane with no difficulties. Patient will continue Tylenol at facility to use as needed. Final read images with radiology also negative. Re-evaluation: stable Disposition discussed with patient/family/significant other: Patient and family Case discussed with consulting clinician: N/A This note was generated with Resolver dictation software. It may contain incorrect words, spelling, and punctuation that were not noted in checking the note before signing. Radiography Diagnostic Testing: Clinical Impression(s) from Imaging Studies Shoulder X-Ray 09/01/23 17:55 IMPRESSION: 1. No acute fracture or dislocation. 2. 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 3. Mild acromioclavicular joint arthrosis. Electronically Signed: Roger Nicolas MD at 19:22 EDT Reading Location ID and State: [id number] / [employer] Tel , Service support , Brain CT 09/01/23 18:15 IMPRESSION: Normal unenhanced CT scan of the brain. Electronically Signed: Roger Nicolas MD at 19:10 EDT , Hip/Pelvis X-Ray 09/01/23 18:22 IMPRESSION: No acute fracture or dislocation. Electronically Signed: Rgoer Nicolas MD at 19:25 EDT Reading Location ID and State: [id number] / [employer] Tel , Service support , Discharge Plan Triage Chief Complaint: Fall ED Provider: Cj Joel Dx/Rx/DC Orders Clinical Impression: History of dementia, Closed injury of head, Fall, Contusion of right hip, Contusion of right shoulder Instructions: ED Contusion, Lower Extremity, ED Contusion, Upper Extremity, ED Head Injury (Adult) Prescriptions: No Action levothyroxine 88 mcg tablet 88 mcg PO QDAY Proventil HFA 90 mcg/actuation HFA aerosol inhaler 2 puff INHALATION Q4H PRN (Reason: sob) aspirin 81 MG tablet 81 mg PO DAILY@0800 multivitamin with folic acid 1 TABLET tablet 1 tab PO DAILY simvastatin 20 MG tablet 20 mg PO QHS fluoxetine [Prozac] 20 mg capsule 20 mg PO DAILY Patient Comments: Take 1 capsule By Mouth every morning rivastigmine 4.6 mg/24 hour patch 24 hour 4.6 mg transdermal DAILY melatonin 3 mg capsule 3 mg PO QHS quetiapine 25 mg tablet 25 mg PO BID 30 Days Qty: 60 0RF Primary Care Provider: José Miguel Frias Referrals: José Miguel Frias MD [Primary Care Provider] - 5-7 Days Activity Restrictions/Additional Instructions: CT brain negative. X-ray right shoulder right hip negative. Use Tylenol 1 g every 6 hours as needed for pain control. Disposition Disposition: Home, Self Care Discharge Date/Time: 09/01/23 19:48
[2023-09-01] MEDS: Acetaminophen/Codeine #3 Tablet 1 TABLET PO (18:07)
--- NOTE | 2023-09-01 18:15 | CT_ITS ---
STUDY: CT BRAIN WITHOUT CONTRAST REASON FOR EXAM: Female, 88 years old. injury RADIATION DOSAGE (If Supplied By Facility): CTDIvol = ( 44.99 ) mGy, DLP = ( 812.98 ) mGycm TECHNIQUE: Transaxial CT imaging of the brain was performed without administration of intravenous contrast material. Individualized dose optimization techniques were used for this CT. COMPARISON: 02/23/2023 FINDINGS: Normal soft tissue structures. Normal calvarium. Normal size ventricles and extra-axial spaces for the patient''s age. Normal white matter tracts of the cerebral hemispheres. Normal basal ganglia and thalami. Normal brainstem. Normal cerebellum. There is no intracranial hemorrhage. There are no findings of an acute ischemic infarction. Normal visualized paranasal sinuses. CT/Brain/Head without Contrast IMPRESSION: Normal unenhanced CT scan of the brain. Electronically Signed: Roger Nicolas MD at 19:10 EDT ,
--- NOTE | 2023-09-01 18:22 | RAD_ITS ---
STUDY: X-RAY - PELVIS AND RIGHT HIP REASON FOR EXAM: Female, 88 years old. injury TECHNIQUE: 3 views of the pelvis and hip. COMPARISON: None. FINDINGS: There is a non-specific bowel gas pattern. Normal visualized soft tissue structures. Normal bilateral iliac wings, sacroiliac joints and visualized sacrum. Normal bilateral superior and inferior pubic rami. Normal pubic symphysis. Normal bilateral ischial tuberosities. Normal visualized femoral head. Normal acetabulum. There is mild articular joint space narrowing of the hip. RAD/HIP, UNI W/ Pelvis 2-3 Views IMPRESSION: No acute fracture or dislocation. Electronically Signed: Roger Nicolas MD at 19:25 EDT ,
--- NOTE | 2023-09-01 18:59 | ED.RN ---
STOOD AT SIDE OF BED THEN AMBULATED WITH CANE. TOLERATED WELL.
[2023-09-01 19:48] VITALS: BP 146/78; PULSE 81; RESP 18; TEMP 36.6; O2SAT 98
== END 2023-09-01 19:48 | disposition home or self-care (01) ==
PROVIDERS: Emergency Provider Emergency Medicine; PCP Internal Medicine; Visit Provider Emergency Medicine
DX: S09.90XA Unspecified injury of head, initial encounter (principal); F03.90 Unspecified dementia, unspecified severity, without behavioral disturbance, psychotic disturbance, mood disturbance, and anxiety; I48.91 Unspecified atrial fibrillation; S70.01XA Contusion of right hip, initial encounter; S40.011A Contusion of right shoulder, initial encounter; W19.XXXA Unspecified fall, initial encounter
CPT/HCPCS: 70450; 73030; 73502; 99282

== ENCOUNTER → 2024-04-02 | Outpatient (REF) | payer MEDICARE, SELFPAY ==
[2024-04-02 08:13] LABS: Bacteria 0 SEEN /hpf (None Seen); Mucous, Urine 0 SEEN /hpf (<or=2+); Red Blood Cells-Urine 0 SEEN /hpf (0-5)
[2024-04-02 08:33] LABS: Hematocrit 39.5 % (37-47); Hemoglobin 12.2 g/dL (12.0-15.0); Mean Corp Hgb Conc 30.9 g/dL (32-36); Mean Corpuscular Hgb 29.2 pg (27.0-32.0); Mean Corpuscular Volume 94.5 fL (81-99); Mean Platelet Vol. 10.4 fl (6.2-12.0); Platelet Count 194 K/mm3 (150-450); RBC Distribution Width CV 12.9 % (11.6-14.6); RBC Distribution Width SD 44.5 fl (35.1-43.9); Red Blood Count 4.18 M/mm3 (4.2-5.4); White Blood Count 5.7 K/mm3 (4.4-11.0)
[2024-04-02 08:46] LABS: Color, Urine Yellow (Yellow); Glucose, Dipstick Normal (Normal); Ketone-Dipstick Negative (Negative); Leukocyte Esterase-Dipstick 25 /ul (Negative); Nitrite-Dipstick Negative (Negative); Occult Blood-Urine Negative /ul (Negative); Protein-Dipstick Negative (Negative); Urine Bilirubin Dipstick Negative (Negative); Urine Clarity Sl. Cloudy (Clear); Urine Urobilinogen Normal (Normal)
[2024-04-02 08:53] LABS: Squamous Epithelial Cells - UA 0-5 SEEN /hpf (5-10); White Blood Cells 0-5 SEEN /hpf (0-5)
[2024-04-02 09:30] LABS: AST(SGOT) 21 U/L (15-37); Alanine Aminotransfer ALT/SGPT 23 U/L (13-56); Albumin, Serum 3.6 g/dL (3.2-5.0); Alkaline Phosphatase 93 U/L (45-117); Anion Gap 6 (5-15); BUN 28 mg/dL (7-18); BUN/Creat Ratio 28.4 RATIO (10-20); Calcium,Total 8.9 mg/dL (8.5-10.1); Chloride 105 mmol/L (98-107); Creatinine, Serum 0.99 mg/dL (0.55-1.02); EST Glomerular Filtration Rate 57 mL/min (>60); Est Glom Filt Rate - Afr Amer 69 mL/min (>60); Globulin 3.6 g/dL (2.2-4.2); Glucose 129 mg/dL (74-106); Magnesium 2.3 mg/dL (1.6-2.6); Potassium 3.5 mmol/L (3.5-5.1); Protein, Total 7.2 g/dL (6.4-8.2); Sodium Level 139 mmol/L (136-145); T4 Total, Thyroxin 9.1 ug/dL (4.8-13.9)
== END ==
LOC: OLS.BROOKB 04:00
PROVIDERS: PCP Internal Medicine; Referring Provider Family Medicine; Visit Provider Family Medicine
DX: I48.91 Unspecified atrial fibrillation (principal); N39.0 Urinary tract infection, site not specified; R53.83 Other fatigue; E03.9 Hypothyroidism, unspecified; R53.1 Weakness; R41.82 Altered mental status, unspecified
CPT/HCPCS: 36415; 80053; 81001; 82140; 83735; 84436; 84443; 85027; 87086; 87088

== ENCOUNTER 2024-04-11 05:53 | Emergency (ER) | payer MEDICARE, SELFPAY ==
[2024-04-11 05:55] VITALS: BP 155/105; PULSE 75; RESP 18; TEMP 36.4; O2SAT 99; BMI 29.9
--- NOTE | 2024-04-11 06:07 | CT_ITS ---
EXAM: CT HEAD WITHOUT INTRAVENOUS CONTRAST CLINICAL INDICATION: dizziness TECHNIQUE: Multiple axial images were obtained of the head without intravenous contrast. This CT exam was performed using one or more of the following dose reduction techniques: automated exposure control, adjustment of the mA and/or kV according to patient size, and/or use of iterative reconstruction technique. RADIATION DOSE: CTDIvol = 44.99 mGy, DLP = 745.49 mGy-cm COMPARISON: Head CT 09/01/2023 FINDINGS: BRAIN AND EXTRA-AXIAL SPACES: Diffuse cerebral volume loss. Periventricular small vessel ischemic changes. No intra- or extra-axial hemorrhage. No intracranial mass or mass effect. Posterior fossa structures are unremarkable. No hydrocephalus. Basal cisterns are patent. BONES/JOINTS: Unremarkable. No discrete lytic or blastic abnormalities. VASCULATURE: Vascular calcifications. SINUSES: Unremarkable as visualized. Clear. MASTOID AIR CELLS: Unremarkable. Clear. ORBITS: Visualized globes, extraocular muscles, optic nerves and retrobulbar fat appear unremarkable. ASPECTS: 10. CT/Brain/Head without Contrast IMPRESSION: 1. No acute intracranial abnormalities. 2. Age-related changes. Electronically Signed: Mario Ruvalcaba MD at 7:21 EST ,
--- NOTE | 2024-04-11 06:07 | EKG12_ITS ---
Test Reason : DYSRHYTHMIA Blood Pressure : */* mmHG Vent. Rate : 72 BPM Atrial Rate : 72 BPM P-R Int : 196 ms QRS Dur : 126 ms QT Int : 440 ms P-R-T Axes : 90 -47 30 degrees QTcB Int : 481 ms Normal sinus rhythm Left axis deviation Left ventricular hypertrophy with QRS widening ( R in aVL , [place] product ) Abnormal ECG Confirmed by Cory Hopper ([id number]), editor trade journal NADEEM HINKLE ([id number]) on 04/14/2024 6:52:09 AM Referred By: Confirmed By: Cory Hopper
[2024-04-11] MEDS: 0.9% Normal Saline (500mL Bag) 500 ML 999 ML IV (06:16)
[2024-04-11] MEDS: Ondansetron 4 MG/2 ML Vial IV (06:16)
[2024-04-11 06:17] LABS: Absolute Lymphocyte Count 1.57 X10^3/uL (0.83-4.51); Absolute Neutrophil Count 4.2 X10^3/uL (2.0-7.7); Basophil# 0.04 X10^3/uL; Basophil% 0.6 % (0-1); Hematocrit 41.4 % (37-47); Hemoglobin 13.3 g/dL (12.0-15.0); Lymphocyte # 1.57 X10^3/ul (0.83-4.51); Lymphocyte % 23.4 % (19-41); Mean Corp Hgb Conc 32.1 g/dL (32-36); Mean Corpuscular Hgb 29.7 pg (27.0-32.0); Mean Corpuscular Volume 92.4 fL (81-99); Mean Platelet Vol. 9.7 fl (6.2-12.0); Monocyte# 0.66 X10^3/uL; Monocyte% 9.8 % (0-10); NRBC Flagged by Analyzer 0 % (0-5); Neutrophil # 4.22 X10^3/uL (2.7-7.7); Neutrophil % 62.9 % (47-70); Platelet Count 208 K/mm3 (150-450); RBC Distribution Width CV 12.9 % (11.6-14.6); RBC Distribution Width SD 43.6 fl (35.1-43.9); Red Blood Count 4.48 M/mm3 (4.2-5.4); White Blood Count 6.7 K/mm3 (4.4-11.0)
[2024-04-11 06:29] LABS: Anion Gap 7 (5-15); BUN 38 mg/dL (7-18); BUN/Creat Ratio 39.7 RATIO (10-20); Calcium,Total 9.4 mg/dL (8.5-10.1); Chloride 103 mmol/L (98-107); Creatinine, Serum 0.96 mg/dL (0.55-1.02); EST Glomerular Filtration Rate 59 mL/min (>60); Est Glom Filt Rate - Afr Amer 71 mL/min (>60); Estimated Creatinine Clearance 49.15 ml/min; Glucose 112 mg/dL (74-106); Magnesium 2.5 mg/dL (1.6-2.6); Potassium 4.1 mmol/L (3.5-5.1); Sodium Level 137 mmol/L (136-145)
[2024-04-11 06:38] LABS: Bacteria 0 SEEN /hpf (None Seen); Mucous, Urine 0 SEEN /hpf (<or=2+); Red Blood Cells-Urine 0 SEEN /hpf (0-5)
--- NOTE | 2024-04-11 06:39 | EDS_ITS ---
HPI History of Present Illness Chief Complaint: Dizziness Informant: patient, family and SNF Narrative Narrative: Patient is an 88-year-old female from the [facility] with past medical history of hypertension hyperlipidemia dementia and spinal stenosis. Chart review also reveals she has a history of declining functional status and multiple/recurrent falls. Reportedly the patient awoke this morning and complained of feeling dizzy and shaky. However she cannot describe if the dizziness is more of an off-balance sensation or lightheaded/syncopal in nature. She reports nausea without bouts of vomiting or diarrhea. She denies any abdominal pain or dysu car. However family/daughter reports that her unsteady gait has been worsening recently and she has been having more frequent falls and therefore with the persistent and worsening symptoms was sent in for evaluation [facility] Medical History Anxiety Spinal stenosis Depression Hypothyroidism Non-smoker Atrial fibrillation Chest pain Hypertension Dementia Groin pain, chronic, left Hypothyroidism Nonrheumatic mitral (valve) prolapse Hyperlipidemia Premature ventricular contraction Premature atrial contractions Home Medications ?Medication ?Instructions ?Recorded ?Last Taken ?Type aspirin 81 mg tablet,delayed 81 mg PO DAILY@0800 11/18/13 Unknown History release multivitamin with folic acid 400 1 tab PO DAILY 11/18/13 Unknown History mcg tablet simvastatin 20 mg tablet 20 mg PO QHS 10/16/16 Unknown History levothyroxine 88 mcg tablet 88 mcg PO QDAY 11/21/17 Unknown History fluoxetine 20 mg capsule (Prozac) 20 mg PO DAILY 02/23/23 Unknown History rivastigmine 4.6 mg/24 hour 4.6 mg transdermal DAILY 02/23/23 Unknown History transdermal patch melatonin 3 mg capsule 3 mg PO QHS 02/25/23 Unknown History quetiapine 25 mg tablet 25 mg PO BID depression 30 days 02/25/23 Unknown Rx #60 tabs furosemide 20 mg tablet 20 mg PO SUTUTHSA 04/11/24 Unknown History furosemide 40 mg tablet 40 mg PO MOWEFR 04/11/24 Unknown History hydroxyzine HCl 25 mg tablet 25 mg PO TID 04/11/24 Unknown History ondansetron 4 mg disintegrating 4 mg PO Q8H PRN nausea and vomiting 04/11/24 Unknown History tablet spironolactone 25 mg tablet 25 mg PO DAILY 04/11/24 Unknown History Allergy/AdvReac Type Severity Reaction Status Date / Time clindamycin Allergy Vomiting Verified 04/11/24 05:54 Penicillins (PCN) Allergy Hives Verified 04/11/24 05:54 Sulfa (Sulfonamide Allergy Hives Verified 04/11/24 05:54 Antibiotics) atorvastatin calcium (From AdvReac Diarrhea Verified 04/11/24 05:54 Lipitor) hydromorphone HCl (From AdvReac Vomiting Verified 04/11/24 05:54 Dilaudid) morphine AdvReac Vomiting Verified 04/11/24 05:54 potassium AdvReac Diarrhea Verified 04/11/24 05:54 procaine (From Novocain) AdvReac Other Verified 04/11/24 05:54 tetracycline (Tetracycline) AdvReac Vomiting Verified 04/11/24 05:54 Family History Father CAD (coronary artery disease) ICD (implantable cardioverter-defibrillator) in place Brother Pacemaker Brother CAD (coronary artery disease) Myocardial infarction Surgical History History of cataract extraction History of cholecystectomy History of hernia repair History of hysterectomy History of knee replacement procedure of left knee History of knee replacement procedure of right knee Social History Smoking Status: Never smoker alcohol intake: never substance use type: does not use caffeine: No frequency: does not exercise ROS ROS ED ROS Narrative Please no review of systems may be unreliable secondary to history of dementia Constitutional Constitutional ED: Denies chills or fever(s) Eyes Eyes: Denies blurry vision or change in vision ENT ENT ED: Denies sore throat Cardiovascular Cardiovascular: Denies chest pain, palpitations or racing heartbeat Respiratory/Chest Respiratory/Chest: Denies cough or dyspnea Gastrointestinal Gastrointestinal: Reports nausea; Denies abdominal pain, diarrhea or vomiting Genitourinary Genitourinary ED: Denies dysuria Musculoskeletal Musculoskeletal: Denies back pain or neck pain Integumentary Denies rash Neurologic Neurologic: Reports other Details: Positive dizziness ; Denies headache(s) Hematologic/Lymphatic Hematologic/Lymphatic: Denies easy bleeding or easy bruising EXAM Physical Exam Const Vital Signs: 04/11/24 05:55 04/11/24 06:04 Temperature 97.5 F L Temperature Source Oral Pulse Rate 75 Respiratory Rate 18 Respiratory Effort Normal Non-Labored Respiratory Pattern Normal Blood Pressure 155/105 H Blood Pressure Mean 121 Pulse Ox 99 Oxygen Delivery Method Room Air Positive well nourished and well developed General Appearance ED: well developed HEENT HEENT Narrative: Normocephalic atraumatic No tongue or lip swelling no oral lesions no airway edema or compromise No signs of infection noted in the posterior pharynx Eyes PERRL and EOMs intact bilaterally General Eye ED: Negative for scleral icterus Neck supple Neck Narrative: No nuchal rigidity or meningeal signs noted No bony deformity or step-off of the cervical spine no midline tenderness to palpation Chest Wall palpation of chest normal Chest Narrative: No bony deformity or crepitance Resp normal respiratory effort and clear to auscultation bilaterally Resp Narrative: Breath sounds are slight diminished throughout but overall clear to auscultation without signs of distress Cardio regular rate and regular rhythm Rate: other Other Details: Radial and carotid pulses are equal and symmetric GI normal to inspection, nondistended, normoactive bowel sounds, non-tender, non- distended and no masses GI Narrative: No voluntary guarding or rigidity or pulsatile mass Auscultation: normoactive bowel sounds Palpation: soft Back/Spine Back/Spine Narrative: No bony deformity or step-off of the thoracic or lumbar spine No midline tenderness to palpation Extremity normal to inspection Extremity Narrative: Pelvis is stable there is no shortening or external rotation of either lower extremity No obvious bony deformity or joint effusion noted Neuro CN's II-XII intact bilaterally Neuro Narrative: Patient is awake and alert to person and place but disoriented to time GCS of 14 secondary to the mild disorientation Cranial nerves II through XII however are grossly intact without focal neurologic deficit No pronator drift no dysmetria no truncal ataxia No nystagmus noted NIH stroke scale score of 1 secondary to the mild disorientation but this is chronic in nature There is a recurrent coarse tremor mainly of the right hand Sensorium / Orientation: alert Psych Psych Narrative: Patient has a flat affect Skin Skin Narrative: Patient has chronic stasis changes to the bilateral lower legs No secondary findings to suggest infection or trauma Skin turgor is slightly increased MDM MDM MDM Narrative Medical decision making narrative: Patient arrived to the ER hypertensive but has a past medical history of this and otherwise with stable vitals. According to chart review patient's been having declining functional status with recurrent falls since 2022 and has a kn own history of dementia. Therefore the fact that daughter is reporting worsening mental status and recurrent falls just in the last few days to weeks does not correlate with the chart review. However in order to ensure that with the recent fall she has not developed a traumatic subarachnoid or subdural hemorrhage or potential brain mass or changes concerning for normal pressure hydrocephalus a CT scan will be obtained. In order to ensure that her dizziness is not related to acute blood loss anemia acute kidney injury or significant electrolyte abnormality basic blood work will be ordered as well. There is always potential for infectious process such as UTI which could change mental status and/or ambulation in an elderly person so urine sample will be obtained. She does have a remote history of paroxysmal A-fib and therefore an EKG will be obtained in order to rule out cardiac ischemia or cardiac dysrhythmia leading to lightheadedness/dizziness. The patient's EKG was sinus rhythm going against a cardiac dysrhythmia as a cause of her symptoms. Her blood work showed stable hemoglobin and hematocrit as well as kidney function and electrolytes. At this time the patient's head CT is still pending as well as urine sample. Secondary to this she will be signed out to the day physician; Dr. Stewart. However, I do feel that if the remainder of the workup is negative that patient will be safe to return to the [facility]. History & Record Review Additional record(s) reviewed:: Prior outpatient record and Prior ED visit Lab Data Attestation: I reviewed the patient's lab results. Labs: Laboratory Results - last 24 hr 04/11/24 06:00 WBC 6.7 RBC 4.48 Hgb 13.3 Hct 41.4 MCV 92.4 MCH 29.7 MCHC 32.1 RDW Std Deviation 43.6 RDW Coeff of Noah 12.9 Plt Count 208 MPV 9.7 Immature Gran % (Auto) 0.300 Neut % (Auto) 62.9 Lymph % (Auto) 23.4 Hughes % (Auto) 9.8 Eos % (Auto) 3.0 Baso % (Auto) 0.6 Absolute Neuts (auto) 4.2 Absolute Lymphs (auto) 1.57 Nucleated RBC % 0 Sodium 137 Potassium 4.1 Chloride 103 Carbon Dioxide 27.0 Anion Gap 7 BUN 38 H Creatinine 0.96 Estim Creat Clear Calc 49.15 Est GFR (MDRD) Af Amer 71 Est GFR (MDRD) Non-Af 59 L BUN/Creatinine Ratio 39.7 H Glucose 112 H Calcium 9.4 Magnesium 2.5 Discharge Plan Triage Chief Complaint: Dizziness ED Provider: Ellis Avila Dx/Rx/DC Orders Clinical Impression: Dementia, Essential hypertension, Dizziness Prescriptions: No Action levothyroxine 88 mcg tablet 88 mcg PO QDAY aspirin 81 MG tablet 81 mg PO DAILY@0800 multivitamin with folic acid 1 TABLET tablet 1 tab PO DAILY simvastatin 20 MG tablet 20 mg PO QHS fluoxetine [Prozac] 20 mg capsule 20 mg PO DAILY Patient Comments: Take 1 capsule By Mouth every morning rivastigmine 4.6 mg/24 hour patch 24 hour 4.6 mg transdermal DAILY melatonin 3 mg capsule 3 mg PO QHS quetiapine 25 mg tablet 25 mg PO BID 30 Days Qty: 60 0RF furosemide 40 mg tablet 40 mg PO MOWEFR hydroxyzine HCl 25 mg tablet 25 mg PO TID furosemide 20 mg tablet 20 mg PO SUTUTHSA ondansetron 4 mg tablet,disintegrating 4 mg PO Q8H PRN (Reason: nausea and vomiting) spironolactone 25 mg tablet 25 mg PO DAILY Primary Care Provider: José Miguel Frias Referrals: José Miguel Frias MD [Primary Care Provider] - Print Language: Marshallese
[2024-04-11 07:11] LABS: Color, Urine Yellow (Yellow); Glucose, Dipstick Normal (Normal); Ketone-Dipstick Negative (Negative); Leukocyte Esterase-Dipstick 25 /ul (Negative); Nitrite-Dipstick Negative (Negative); Occult Blood-Urine 10 /ul (Negative); Protein-Dipstick Negative (Negative); Urine Bilirubin Dipstick Negative (Negative); Urine Clarity Clear (Clear); Urine Urobilinogen Normal (Normal)
[2024-04-11 07:12] LABS: Squamous Epithelial Cells - UA 0-5 SEEN /hpf (5-10); White Blood Cells 0-5 SEEN /hpf (0-5)
[2024-04-11 07:34] VITALS: BP 138/84; PULSE 80; RESP 20; O2SAT 94
[2024-04-11 09:00] VITALS: BP 110/68; PULSE 68; RESP 16; O2SAT 96
[2024-04-11 09:23] VITALS: BP 110/68; PULSE 69; RESP 16; TEMP 36.5; O2SAT 96
== END 2024-04-11 12:25 | disposition home or self-care (01) ==
PROVIDERS: Emergency Provider Emergency Medicine; PCP Internal Medicine; Visit Provider Emergency Medicine
DX: F03.90 Unspecified dementia, unspecified severity, without behavioral disturbance, psychotic disturbance, mood disturbance, and anxiety (principal); I10 Essential (primary) hypertension; R42 Dizziness and giddiness; E78.5 Hyperlipidemia, unspecified; Z79.82 Long term (current) use of aspirin; Z79.899 Other long term (current) drug therapy
CPT/HCPCS: 70450; 80048; 81001; 83735; 85025; 87086; 93005; 96361; 96374; 99285; A4216; J2405

== ENCOUNTER → 2024-04-16 04:00 | Outpatient (REF) | payer MEDICARE, SELFPAY ==
[2024-04-16 08:32] LABS: Hematocrit 40.5 % (37-47); Mean Corp Hgb Conc 32.1 g/dL (32-36); Mean Corpuscular Hgb 29.8 pg (27.0-32.0); Mean Corpuscular Volume 92.9 fL (81-99); Platelet Count 211 K/mm3 (150-450); RBC Distribution Width CV 12.8 % (11.6-14.6); RBC Distribution Width SD 43.8 fl (35.1-43.9); Red Blood Count 4.36 M/mm3 (4.2-5.4); White Blood Count 5.3 K/mm3 (4.4-11.0)
[2024-04-16 09:17] LABS: Anion Gap 4 (5-15); BUN 28 mg/dL (7-18); BUN/Creat Ratio 30.2 RATIO (10-20); Calcium,Total 9.3 mg/dL (8.5-10.1); Chloride 105 mmol/L (98-107); Creatinine, Serum 0.93 mg/dL (0.55-1.02); EST Glomerular Filtration Rate 61 mL/min (>60); Est Glom Filt Rate - Afr Amer 74 mL/min (>60); Glucose 83 mg/dL (74-106); Magnesium 2.4 mg/dL (1.6-2.6); Sodium Level 139 mmol/L (136-145); T4 Total, Thyroxin 9.4 ug/dL (4.8-13.9); Thyroid Stim Hormone (TSH) 0.955 uIU/mL (0.358-3.740)
== END ==
LOC: OLS.BROOKB 04:00
PROVIDERS: PCP Internal Medicine; Referring Provider Family Medicine; Visit Provider Family Medicine
DX: F33.9 Major depressive disorder, recurrent, unspecified (principal); G30.0 Alzheimer's disease with early onset; I48.91 Unspecified atrial fibrillation; I10 Essential (primary) hypertension; E78.5 Hyperlipidemia, unspecified; E03.9 Hypothyroidism, unspecified
CPT/HCPCS: 36415; 80048; 82140; 83735; 84436; 84443; 85027

== ENCOUNTER → 2024-04-21 05:00 | Outpatient (REF) | payer MEDICARE, SELFPAY ==
[2024-04-21 08:16] LABS: Hematocrit 39.8 % (37-47); Hemoglobin 12.4 g/dL (12.0-15.0); Mean Corp Hgb Conc 31.2 g/dL (32-36); Mean Corpuscular Hgb 28.8 pg (27.0-32.0); Mean Corpuscular Volume 92.3 fL (81-99); Mean Platelet Vol. 9.9 fl (6.2-12.0); Platelet Count 237 K/mm3 (150-450); RBC Distribution Width CV 12.5 % (11.6-14.6); RBC Distribution Width SD 42.7 fl (35.1-43.9); Red Blood Count 4.31 M/mm3 (4.2-5.4); White Blood Count 5.8 K/mm3 (4.4-11.0)
[2024-04-21 09:22] LABS: Anion Gap 8 (5-15); BUN 35 mg/dL (7-18); BUN/Creat Ratio 29.9 RATIO (10-20); Calcium,Total 8.9 mg/dL (8.5-10.1); Chloride 105 mmol/L (98-107); Creatinine, Serum 1.17 mg/dL (0.55-1.02); EST Glomerular Filtration Rate 47 mL/min (>60); Est Glom Filt Rate - Afr Amer 56 mL/min (>60); Glucose 148 mg/dL (74-106); Potassium 4.2 mmol/L (3.5-5.1); Sodium Level 137 mmol/L (136-145)
== END ==
LOC: OLS.BROOKB 05:00
PROVIDERS: PCP Internal Medicine; Visit Provider Family Medicine
DX: I10 Essential (primary) hypertension (principal)
CPT/HCPCS: 36415; 80048; 85027

== ENCOUNTER → 2024-08-21 | Outpatient (REF) | payer MEDICARE, SELFPAY ==
[2024-08-21 09:36] LABS: ALB/GLOB Ratio 1.5 RATIO (0.9-2.4); AST(SGOT) 19 U/L (<=31); Alanine Aminotransfer ALT/SGPT 12 U/L (<=34); Albumin, Serum 3.6 g/dL (3.4-4.8); Alkaline Phosphatase 75 U/L (35-104); Anion Gap 9 (5-15); BUN 24 mg/dL (4-19); BUN/Creat Ratio 28.9 RATIO (10-20); Calcium,Total 8.8 mg/dL (7.6-11.0); Carbon Dioxide 25.6 mmol/L (21.0-32.0); Chloride 105 mmol/L (98-108); Creatinine, Serum 0.82 mg/dL (0.70-1.20); EST Glomerular Filtration Rate 69 (>60); Globulin 2.4 g/dL (2.2-4.2); Glucose 80 mg/dL (70-99); Potassium 4.1 mmol/L (3.3-5.1); Sodium Level 139 mmol/L (133-145); Total Bilirubin 0.48 mg/dL (0.00-1.30)
== END ==
LOC: OLS.BROOKB 05:00
PROVIDERS: PCP Internal Medicine; Visit Provider Family Medicine
DX: E78.5 Hyperlipidemia, unspecified (principal); E03.9 Hypothyroidism, unspecified
CPT/HCPCS: 36415; 80053

== ENCOUNTER → 2024-09-30 | Outpatient (REF) | payer MEDICARE, SELFPAY ==
[2024-10-01 08:38] LABS: Bacteria 0 SEEN /hpf (None Seen); Mucous, Urine 0 SEEN /hpf (<or=2+); Red Blood Cells-Urine 0 SEEN /hpf (0-5)
[2024-10-01 09:04] LABS: Color, Urine Yellow (Yellow); Glucose, Dipstick Normal (Normal); Ketone-Dipstick Negative (Negative); Leukocyte Esterase-Dipstick Negative /ul (Negative); Nitrite-Dipstick Negative (Negative); Occult Blood-Urine Negative /ul (Negative); Protein-Dipstick 15 mg/dl (Negative); Urine Bilirubin Dipstick Negative (Negative); Urine Clarity Clear (Clear); Urine Urobilinogen Normal (Normal)
[2024-10-01 09:36] LABS: Squamous Epithelial Cells - UA 0-5 SEEN /hpf (5-10); White Blood Cells 0-5 SEEN /hpf (0-5)
== END ==
LOC: OLS.BROOKB 21:00
PROVIDERS: PCP Internal Medicine; Visit Provider Family Medicine
DX: N39.0 Urinary tract infection, site not specified (principal)
CPT/HCPCS: 81001; 87086; 87088

== ENCOUNTER 2024-10-06 16:47 | Emergency (ER) | payer MEDICARE, SELFPAY ==
[2024-10-06 16:48] VITALS: BP 172/99; PULSE 77; RESP 19; TEMP 36.7; O2SAT 98
--- NOTE | 2024-10-06 17:09 | CT_ITS ---
PROCEDURE: BRAIN/HEAD WITHOUT CONTRAST 10/06/2024 REASON FOR EXAM: HEAD INJURY TECHNIQUE: Head CT without intravenous contrast. Coronal and Sagittal reconstruction series were provided. One or more dose reduction techniques were used (e.g., Automated exposure control, adjustment of the mA and/or kV according to patient size, use of iterative reconstruction technique. RADIATION DOSE SUMMARY: CTDlvol: 45.0 mGy DLP: 813 mGycm COMPARISON: CT head 04/11/2024 FINDINGS: Brain: No acute intracranial hemorrhage, mass effect, or midline shift. Patchy hypodensity in the right frontal lobe, unchanged. CSF Spaces: Moderate generalized cerebral atrophy Sinuses/Mastoids: Clear at visualized levels Bones: No displaced calvarial fracture. Soft tissue debris in the external auditory canals, likely cerumen. Orbits: Prior cataract extraction bilaterally. CT/Brain/Head without Contrast IMPRESSION: No acute intracranial abnormality. Reading Location: [id number]
--- NOTE | 2024-10-06 21:46 | ED.RN ---
NO ANSWER WHEN PATIENT CALLED FOR ROOM AT [id number]
== END 2024-10-06 21:46 | disposition left against medical advice (07) ==
LOC: ED 21:51
PROVIDERS: PCP Internal Medicine
DX: Z53.21 Procedure and treatment not carried out due to patient leaving prior to being seen by health care provider (principal)
CPT/HCPCS: 70450; 99281

== ENCOUNTER → 2024-10-10 05:00 | Outpatient (REF) | payer MEDICARE, SELFPAY ==
[2024-10-10 08:54] LABS: Hemoglobin A1c 5.6 % (<=5.6)
[2024-10-10 09:08] LABS: ALB/GLOB Ratio 1.5 RATIO (0.9-2.4); AST(SGOT) 18 U/L (<=31); Alanine Aminotransfer ALT/SGPT 11 U/L (<=34); Alkaline Phosphatase 84 U/L (35-104); Anion Gap 10 (5-15); BUN 37 mg/dL (4-19); BUN/Creat Ratio 38.1 RATIO (10-20); Calcium,Total 9.4 mg/dL (7.6-11.0); Carbon Dioxide 26.1 mmol/L (21.0-32.0); Chloride 103 mmol/L (98-108); Creatinine, Serum 0.97 mg/dL (0.70-1.20); EST Glomerular Filtration Rate 56 (>60); Globulin 2.6 g/dL (2.2-4.2); Glucose 85 mg/dL (70-99); Potassium 4.9 mmol/L (3.3-5.1); Protein, Total 6.6 g/dL (5.9-8.4); Sodium Level 139 mmol/L (133-145); T4 Total, Thyroxin 6.1 ug/dL (4.8-13.9); Total Bilirubin 0.55 mg/dL (0.00-1.30)
== END ==
LOC: OLS.BROOKB 05:00
PROVIDERS: PCP Internal Medicine; Visit Provider Family Medicine
DX: I48.91 Unspecified atrial fibrillation (principal); I10 Essential (primary) hypertension; E78.5 Hyperlipidemia, unspecified; E03.9 Hypothyroidism, unspecified
CPT/HCPCS: 36415; 80053; 83036; 84436; 84443

== ENCOUNTER → 2024-11-20 12:00 | Outpatient (REF) | payer MEDICARE, SELFPAY ==
[2024-11-21 07:53] LABS: Mucous, Urine 0 SEEN /hpf (<or=2+); Red Blood Cells-Urine 0 SEEN /hpf (0-5); Squamous Epithelial Cells - UA 0 SEEN /hpf (5-10)
[2024-11-21 08:15] LABS: Color, Urine Yellow (Yellow); Glucose, Dipstick Normal (Normal); Ketone-Dipstick Negative (Negative); Leukocyte Esterase-Dipstick 500 /ul (Negative); Nitrite-Dipstick Positive (Negative); Occult Blood-Urine 25 /ul (Negative); Protein-Dipstick 30 mg/dl (Negative); Specific Gravity, Urine 1.020 (1.002-1.030); Urine Bilirubin Dipstick Negative (Negative)
== END ==
LOC: OLS.BROOKB 12:00
PROVIDERS: PCP Internal Medicine; Visit Provider Family Medicine
DX: N39.0 Urinary tract infection, site not specified (principal)
CPT/HCPCS: 81001; 87077; 87086; 87088; 87186

== ENCOUNTER → 2024-11-28 | Outpatient (REF) | payer MEDICARE, SELFPAY ==
--- OUTSIDE RECORDS SUMMARY | 2024-11-28 05:03 | XMS RPT_ITS | CCD ---
Author Organization [facility] Care Team Providers Care Aquatics Instructor Name Role Phone Marina Blanc Kulwinder Unavailable Nataliia Blancodalis Miramontes Unavailable José Miguel Frias MD Primary Care Provider Unavailable Primary Care Provider UnavailJosé Miguel Baeza MD Primary Care Provider Dr. José Miguel Frias Primary Care Provider Dr. De Quiroz Emergency Provider Dr. Jhonathan Londono Admit Provider Dr. Jhonathan Londono Attending Provider Dr. Jhonathan Londono Other Provider Dr. Will Bah Attending Provider Dr. Will Bah Other Provider José Miguel Frias MD Primary Care Provider Emmanuel Park DO Primary Care Provider José Miguel Frias MD Primary Care Provider [phone] JOSÉ MIGUEL FRIAS Primary Care Unavailable MCKENZIE FUNK Attending Unavailable Dr. José Miguel Frias MD Primary Care Provider Dr. Emmanuel Park MD Attending Provider Unavail able Provider, Ed Physician Emergency Provider Paola elam Provider, Ed Physician Attending Provider Emmanuel Kamara Attending Unavailable José Miguel Frias Primary Care Unavailable Emmanuel Zavala Attending Unavailable Frias, José Miguel Primary Care Unavailable Xavier VELASQUEZ, Emmanuel Attending Unavailable Frias, José Miguel Primary Care Unavailable Provider, Ed Physician Attending Unavailab Ellis Cisneros Attending Unavailable Frias, José Miguel Primary Care Unavailable Frias, José Miguel Primary Care Unavailable Xavier VELASQUEZ, Emmanuel Attending Unavailable Park OLS, Emmanuel Attending Unavailable Frias, José Miguel Primary Care Unavailable Xavier VELASQUEZ, Emmanuel Attending Unavailable Xavier VELASQUEZ, Emmanuel Attending Unavailable Park OLS, Emmanuel Attending Unavailable Park OLS, Emmanuel Attending Unavailable Park OLS, Emmanuel Referring Unavailable Park OLS, Emmanuel Attending Unavailable Frias, José Miguel Primary Care Unavailable Park OLS, Emmanuel Referring Unavailable Frias, José Miguel Primary Care Unavailable Xavier VELASQUEZ, Emmanuel Attending Unavailable Frias, José Miguel Primary Care Unavailable Xavier VELASQUEZ, Emmanuel Attending Unavailable Allergies Allergy Classification Reported Allergen(s) Allergy Type Date of Onset Reaction(s) Facility (2 sources) atorvastatin Drug Allergy 2 Muscle aching [facility] Work Phone: [phone] (20 sources) Clindamycin; Translations: [CLINDAMYCIN] Drug Allergy 9 Diarrhea [facility] Work Phone: [phone] (2 sources) HYDROmorphone Drug Allergy 2 [facility] Work Phone: [phone] (20 sources) Morphine; Translations: [MORPHINE] Drug Allergy 5 Vomiting [facility] Work Phone: [phone] (2 sources) Penicillin Drug Allergy 2 [facility] Work Phone: [phone] (20 sources) Potassium; Translations: [POTASSIUM] Drug Allergy 8 Diarrhea [facility] Work Phone: [phone] (2 sources) Sulfonamides (Antibiotic) drug allergy 2 Rash [facility] Work Phone: [phone] (20 sources) Tetracycline; Translations: [TETRACYCLINE] Drug Allergy 5 Vomiting [facility] Work Phone: [phone] (2 sources) DILAUDEN drug allergy 2 Vomitting, dizziness [facility] Work Phone: [phone] (20 sources) Amoxicillin / Clavulanate; Translations: [AMOXICILLIN-POT CLAVULANATE] Drug Allergy 0 Diarrhea [facility] (20 sources) atorvastatin; Translations: [ATORVASTATIN CALCIUM] Drug Allergy 6 Diarrhea [facility] (20 sources) Doxycycline; Translations: [DOXYCYCLINE MONOHYDRATE] Drug Allergy 7 GI Upset [facility] (20 sources) HYDROmorphone; Translations: [HYDROMORPHONE (BULK)] Drug Allergy 6 [facility] Work Phone: (20 sources) Lisinopril; Translations: [LISINOPRIL] Drug Allergy 9 [facility] (5 sources) Penicillins; Translations: [PENICILLINS] Propensity to adverse reactions 5 [facility] Work Phone: (20 sources) Procaine; Translations: [PROCAINE] Drug Allergy 1 Mental Status Change [facility] Work Phone: Comment on above: starts crying and l aughing (20 sources) Sulfonamides (Antibiotic); Translations: [SULFA (SULFONAMIDE ANTIBIOTICS)] Propensity to adverse reactions 7 Hives [facility] Work Phone: (12 sources) HYDROmorphone; Translations: [hydromorphone HCl] Drug Allergy 2 Vomiting [facility] (11 sources) Penicillins [facility] substance [facility] (11 sources) Sulfonamides (Antibiotic) Allergy to substance 2 [facility] (20 sources) Penicillins Propensity to adverse reactions 5 [facility] Work Phone: (14 sources) Latex; Translations: [LATEX] Drug Allergy 3 Other: See Comments [facility] Work Phone: (1 source) atorvastatin Drug Allergy 5 [facility] (1 source) Penicillins Drug allergy (disorder) 5 [facility] (1 source) Procaine Drug Allergy 5 [facility] (1 source) Sulfonamides (Antibiotic) Drug allergy (disorder) [facility] Medications Current Medications Medication Drug Class(es) Dates Sig (Normalized) Sig (Original) acetaminophen 500 mg oral tablet (20 sources) Start: 09-15-2022 take 1 tablet by mouth three times daily acetaminophen (TYLENOL EXTRA STRENGTH) 500 mg tablet Indications: DDD (degenerative disc disease), lumbar Take 1 tablet by mouth three times daily. 90 tablet 2 09/15/2022 Active Start: 08-15-2022 End: 12-25-2022 take 1 tablet by mouth every six hours as needed acetaminophen (TYLENOL EXTRA STRENGTH) 500 mg tablet Take 1 tablet by mouth every 6 hours as needed for pain. 0 08/15/2022 12/25/2022 Discontinued Comment on above: Take 1 tablet by aubrey th every 6 hours as needed for pain. Take 1 tablet by aubrey th three times daily. aspirin 81 mg delayed release oral tablet (20 sources) Platelet Aggregation Inhibitor, Nonsteroidal Anti-inflammatory Drug Start: 11-18-2013 take 1 tablet by mouth once daily Aspirin 81 MG tablet Active 81 mg PO DAILY@0800 November 18, 2013 12:00am Start: 06-07-2005 End: 04-13-2023 ASPIRIN 81 MG TAB Take one(1 ) tablet daily. 0 06/07/2005 04/13/2023 Discontinued (Duplicate Entry) Comment on above: Take one(1) tablet d aily. Take 1 tablet by aubrey th once daily. augmented betamethasone 0.5 mg/ml topical cream (6 sources) Corticosteroid Start: betamethasone dipropionate, augmented (DIPROLENE) 0.05 % cream Apply to bilateral lower legs twice a day for two weeks. Then use as needed for any flare ups (twice a day for two weeks) 50 g 2 05/29/2023 Active cephalexin 500 mg oral capsule (20 sources) Cephalosporin Antibacterial Start: 023 End: take 1 capsule by mouth four times daily at mealtime cephALEXin (KEFLEX) 500 mg capsule Indications: Cellulitis of lower extremity, unspecified laterality , Bilateral lower extremity edema Take 1 capsule by mouth four times daily for 7 days. Take with food 28 capsule 0 03/16/2023 03/23/2023 Active Start: 10-31-2022 End: 11-07-2022 take 1 capsule by mouth four times daily cephALEXin (KEFLEX) 500 mg capsule Indications: Cellulitis of great toe of right foot Take 1 capsule by mouth four times daily for 7 days. 14 capsule 0 10/31/2022 11/07/2022 Active Start: 09-04-2022 End: 09-11-2022 take 1 capsule by mouth four times daily cephALEXin (KEFLEX) 500 mg capsule Take 1 capsule by mouth four times daily for 7 days. 28 capsule 0 09/04/2022 09/11/2022 Active Start: 07-01-2022 End: 07-08-2022 take 1 capsule by mouth three times daily cephALEXin (KEFLEX) 500 mg capsule Indications: Sinusitis, unspecified chronicity, unspecified location Take 1 capsule by mouth three times daily for 7 days. 21 capsule 0 07/01/2022 07/08/2022 Active Start: 04-08-2022 End: 02-23-2023 take 1 capsule by mouth every six hours Cephalexin 500 mg capsule Discontinued 500 mg PO EVERY 6 HOURS 40 April 08, 2022 1:00am February 23, 2023 10:00pm Comment on above: Take 1 capsule by mo ut three times daily for 7 days. Take 1 capsule by mo ut four times daily for 7 days. Take 1 capsule by mo ut four times daily for 7 days. Take with food FLUoxetine 20 mg oral capsule (20 sources) Serotonin Reuptake Inhibitor Start: 02-23-2023 End: 03-07-2023 take 1 capsule by mouth once daily Fluoxetine (Prozac) 20 mg capsule Active 20 mg PO DAILY February 23, 2023 12:00am Comment on above: Take 20 mg by mouth once daily. Take 1 capsule by mo ut once daily. Per psychiatry. furosemide 20 mg oral tablet (15 sources) Loop Diuretic Start: 04-11-2024 take 1 tablet by mouth once Furosemide 20 mg tablet Active 20 mg PO every Sunday, , , Sat April 11, 2024 1:00am Start: 05-29-2023 Furosemide 40 mg tablet Active 40 mg PO MOWEFR April 11, 2024 1:00am Start: 03-16-2023 End: 03-20-2023 take 1 tablet by mouth once daily at breakfast furosemide (LASIX) 20 mg tablet Indications: Cellulitis of lower extremity, unspecified laterality , Bilateral lower extremity edema Take 1 tablet by mouth once daily. with breakfast 30 tablet 0 03/16/2023 03/20/2023 Discontinued Start: 03-09-2023 take 1 tablet by aubrey once daily at breakfast furosemide (LASIX) 20 mg tablet Indications: Cellulitis of lower extremity, unspecified laterality , Bilateral lower extremity edema Take 1 tablet by mouth once daily. with breakfast 3 tablet 0 03/09/2023 Active Comment on above: Take 1 tablet by aubrey once daily. with breakfast hydrOXYzine hydrochloride 25 mg oral tablet (20 sources) Antihistamine Start: 04-11-20 take 1 tablet by mouth three times daily Hydroxyzine Hcl 25 mg tablet Active 25 mg PO THREE TIMES A DAY April 11, 2024 1:00am Start: 11-06-2022 End: 12-25-2022 take 1 tablet by mouth once hydrOXYzine HCl (ATARAX) 2 5 mg tablet Indications: Dementia with behavioral disturbance (HCC) Take 1 tablet by mouth every afternoon. Per Psych. 0 11/06/2022 12/25/2022 Discontinued Start: 07-26-2022 End: 03-07-2023 take 1 capsule by mouth three times daily as needed Hydroxyzine Pamoate (Hydroxyzine Pamoate 25 Mg Capsule) 25 mg capsule Discontinued 25 mg PO 3 TIMES DAILY NEEDED February 23, 2023 12:00am February 25, 2023 12:40pm 4 pm End: 07-26-2022 take 1 capsule by mouth every six hours as needed hydrOXYzine pamoate (VISTARIL) 25 mg capsule Take 25 mg by mouth every 6 hours as needed. 0 07/26/2022 Discontinued Comment on above: Take 25 mg by mouth every 6 hours as needed. Take 1 capsule by mo [facility] three times daily as needed for anxiety. Take 1 tablet by aubrey every afternoon. Per Psych. levothyroxine sodium 0.088 mg oral tablet (20 sources) l-Thyroxine Start: 8 take 1 tablet by mouth once daily Levothyroxine 88 mcg tablet Active 88 ug PO daily November 21, 2017 12:00am Start: 05-23-2011 take 1 tablet by aubrey once daily LEVOTHYROXINE SODIUM 100 MCG TABS One tablet by mouth daily LEVOTHYROXINE SODIUM [id number] Gregoria Diaz Start: 05-23-2011 take 1 tablet by aubrey th once daily LEVOTHYROXINE SODIUM 88 MCG TABS One tablet by mouth daily LEVOTHYROXINE SODIUM [id number] Gutierrez Tlobert MD Comment on above: TAKE ONE TABLET BY M OUT EVERY DAY ON EMPTY STOMACH melatonin 3 mg oral capsule (4 sources) Start: 3 take 1 capsule by mouth at bedtime Melatonin 3 mg capsule Active 3 mg PO AT BEDTIME February 25, 2023 12:00am multivitamin (MULTIPLE VITAMIN) ORAL Tab (20 sources) Start: 7 End: 3 take 1 tablet by mouth once daily multivitamin (MULTIPLE VITAMIN) ORAL Tab Take one(1) tablet daily. 0 01/24/2007 04/13/2023 Discontinued (Duplicate Entry) Start: 01-24-2007 take 1 tablet by aubrey th once daily multivitamin (MULTIPLE VITAMIN) ORAL Tab Take one(1) tablet daily. 0 01/24/2007 Active Comment on above: Take one(1) tablet d aily. multivitamin tablet (7 sources) Start: 04-13-2023 take 1 tablet by mouth once daily multivitamin tablet Take 1 tablet by mouth once daily. 30 tablet 11 04/13/2023 Active Comment on above: Take 1 tablet by aubrey th once daily. Multivitamin With Folic Acid (8 sources) Start: 11-18-2013 take 1 tablet by mouth once daily Multivitamin With Folic Acid Active 1 TABLET PO DAILY November 18, 2013 12:00am Start: 11-18-2013 take 1 tablet by aubrey th once daily Multivitamin With Folic Acid Active 1 TABLET PO DAILY November 17, 2013 11:00pm Multivitamin With Folic Acid 1 TABLET tablet (3 sources) Start: 11-18-2013 take 1 tablet by mouth once daily Multivitamin With Folic Acid 1 TABLET tablet Active 1 {tbl} PO DAILY November 18, 2013 12:00am ondansetron 4 mg disintegrating oral tablet (8 sources) Serotonin-3 Receptor Antagonist Start: 04-11-2024 take 1 tablet by mouth every eight hours as needed for nausea and vomiting Ondansetron 4 mg tablet,disintegrat ing Active 4 mg PO Q8H as needed for nausea and vomiting April 11, 2024 1:00am End: 03-07-2023 take 1 tablet by mouth every eight hours as needed ondansetron (ZOFRAN) 4 mg tablet Take 4 mg by mouth every 8 hours as needed for nausea/vomiting. 0 03/07/2023 Discontinued Comment on above: Take 4 mg by mouth e very 8 hours as needed for nausea/vomiting. QUEtiapine 25 mg oral tablet (20 sources) Atypical Antipsychotic Start: End: take 1 tablet by mouth twice daily Quetiapine 25 mg tablet Active 25 mg PO TWICE A DAY 60 February 25, 2023 12:41pm Start: 11-06-2022 End: 03-07-2023 take 1 tablet by mouth once QUEtiapine (SEROQUEL) 25 m g tablet Indications: Major depressive disorder with current active episode, unspecified depression episode severity, unspecified whether recurrent , Dementia with behavioral disturbance (HCC) Take 1 tablet by mouth every afternoon. Per Psych. 0 11/06/2022 03/07/2023 Discontinued Start: 09-04-2022 End: 03-07-2023 take 1 tablet by mouth twice daily Quetiapine 50 mg tablet Discontinued 50 mg PO TWICE A DAY February 23, 2023 12:00am February 25, 2023 12:40pm Start: 08-15-2022 End: 09-04-2022 take 1 tablet by mouth twice daily QUEtiapine (SEROQUEL) 25 mg tablet Take 1 tablet by mouth twice daily. 0 08/15/2022 09/04/2022 Discontinued Start: 06-14-2022 End: 08-11-2022 take 0.5 tablet by mouth twice daily QUEtiapine (SEROQUEL) 25 mg tablet Take 0.5 tablets by mouth twice daily. 0 06/14/2022 08/11/2022 Discontinued End: 06-14-2022 take 1 tablet by mouth twice daily QUEtiapine (SEROQUEL) 25 mg tablet Take 25 mg by mouth twice daily. 0 06/14/2022 Discontinued Comment on above: Take 0.5 tablets by mouth twice daily. Take 25 mg by mouth twice daily. Take 1 tablet by aubrey th twice daily. Take 1 tablet by aubrey th every afternoon. Per Psych. Take 1 tablet by aubrey th two times a day. Per psychiatry. 24 hr rivastigmine 0.192 mg/hr transdermal system (20 sources) Start: 02-23-2023 End: 03-23-2023 Rivastigmine 4.6 mg/24 hour patch 24 hour Active 4.6 mg TD DAILY February 23, 2023 12:00am Start: 02-23-2023 Rivastigmine A ctive 4.6 MG TD DAILY February 23, 2023 12:00am Start: 09-29-2022 End: 03-07-2023 apply 1 dose transdermal route once daily rivastigmine (EXELON) 4.6 mg/24 hour patch Apply 1 Patch as directed once daily. 30 Patch 5 11/30/2022 03/07/2023 Discontinued Start: 06-28-2022 End: 07-31-2022 apply 1 dose transdermal route once daily rivastigmine (EXELON) 4.6 mg/24 hour patch Apply 1 Patch as directed once daily. 30 Patch 1 07/31/2022 Active Start: 06-14-2022 End: 06-28-2022 apply 1 dose transdermal route once daily rivastigmine 9.5 mg/24 hour patch Indications: Dementia with behavioral disturbance (HCC) Apply 1 Patch as directed once daily. 30 Patch 2 06/14/2022 06/28/2022 Discontinued (Side Effects) End: 06-14-2022 apply 1 dose transdermal route once daily rivastigmine (EXELON) 4.6 mg/24 hour patch Apply 1 Patch as directed once daily. 0 06/14/2022 Discontinued (Dosage adjustment) Comment on above: Apply 1 Patch as dir ected once daily. Apply 1 Patch as dir ected once daily. Per psychiatry. simvastatin 20 mg oral tablet (20 sources) HMG-CoA Reductase Inhibitor Start: 05-23-19 take 1 tablet by mouth at bedtime Simvastatin 20 MG tablet Active 20 mg PO AT BEDTIME October 16, 2016 12:00am Comment on above: Take 1 tablet by aubrey th daily at bedtime. spironolactone 25 mg oral tablet (15 sources) Aldosterone Antagonist Start: 04-27-20 23 take 1 tablet by mouth once daily Spironolactone 25 mg tablet Active 25 mg PO DAILY April 11, 2024 1:00am Start: 03-20-2023 End: 04-19-2023 take 1 tablet by mouth once daily spironolactone (ALDACTONE) 25 mg tablet Take 1 tablet by mouth once daily. 30 tablet 0 03/20/2023 04/19/2023 Active Comment on above: Take 1 tablet by aubrey th once daily. Completed/Discontinued Medications Medication Drug Class(es) Dates Sig (Normalized) Sig (Original) acetaminophen 500 mg / HYDROcodone bitartrate 5 mg oral tablet (4 sources) Opioid Agonist Start: 05-25-2011 End: 02-22-2017 HYDROCODONE-ACETAMI NOPHEN 5-500 MG TABS as needed HYDROCODONE-ACETAMI NOPHEN [id number] Gutierrez Tolbert MD [id number] 200 actuat albuterol 0.09 mg/actuat metered dose inhaler (11 sources) beta2-Adrenergic Agonist Start: 03-14-2018 End: 04-11-2024 Albuterol Sulfate (Proventil Hfa) 90 mcg/actuation HFA aerosol inhaler Discontinued 2 NMA INHALATION Q4H as needed for sob March 14, 2018 1:00am April 11, 2024 7:38am Start: 03-14-2018 take 1 puff(s) by in halation every four hours Albuterol Sulfate (Proventil Hfa) 90 mcg/actuation HFA aerosol inhaler Active 2 PUFF INHALATION Q4H March 14, 2018 1:00am atenolol 50 mg oral tablet (20 sources) beta-Adrenergic Brad Start: 05-23-2011 End: 03-07-2023 take 1 tablet by mouth once daily Atenolol 50 mg tablet Discontinued 50 mg PO DAILY October 10, 2021 4:51pm February 25, 2023 12:39pm Comment on above: Take 1 tablet by aubrey th once daily. calcium carbonate 1500 mg oral tablet (4 sources) Start: 05-23-2011 End: 05-16-2012 take 1 tablet by mouth twice daily CALCIUM CARBONATE 600 MG TABS One tablet by mouth twice daily CALCIUM CARBONATE [id number] Gutierrez Tolbert MD chlorthalidone 25 mg oral tablet (16 sources) Thiazide-like Diuretic Start: 02-19-2023 End: 03-07-2023 take 1 tablet by mouth once daily Chlorthalidone 25 mg tablet Discontinued 25 mg PO DAILY February 23, 2023 12:00am February 25, 2023 12:39pm Start: 09-15-2022 take 1 tablet by aubrey th once daily chlorthalidone (HYGROTON) 25 mg tablet Indications: Bilateral lower extremity edema , Venous insufficiency , Primary hypertension Take 1 tablet by mouth once daily. 30 tablet 5 09/15/2022 Active Comment on above: Take 1 tablet by aubrey th once daily. citalopram 20 mg oral tablet (8 sources) Serotonin Reuptake Inhibitor Start: 01-04-2015 End: 02-18-2015 take 1 tablet by mouth once daily CELEXA 20 MG TABS One tablet by mouth daily CITALOPRAM HYDROBROMIDE [id number] Gutierrez Tolbert MD Start: 02-23-2012 End: 10-02-2013 take 1 tablet by mouth once daily CELEXA 20 MG TABS One tablet by mouth daily CITALOPRAM HYDROBROMIDE [id number] Gutierrez Tolbert MD doxycycline monohydrate 100 mg oral capsule (20 sources) Tetracycline-class Drug Start: 03-14-2018 End: 02-23-2023 take 1 capsule by mouth twice daily Doxycycline Monohydrate 100 mg capsule Discontinued 100 mg PO TWICE A DAY March 14, 2018 1:00am February 23, 2023 10:00pm Start: 10-16-2016 End: 11-21-2017 take 1 capsule by mouth twice daily Doxycycline Hyclate 100 MG capsule Discontinued 100 mg PO TWICE A DAY October 16, 2016 12:00am November 21, 2017 2:34pm fexofenadine hydrochloride 180 mg oral tablet (4 sources) Histamine-1 Receptor Antagonist Start: 05-23-2011 End: 05-16-2012 take 1 tablet by mouth once daily JO 180 MG TABS One tablet by mouth daily FEXOFENADINE HCL Gregoria Diaz Fish Oils (4 sources) Start: 05-23-2011 End: 10-02-2013 take 1 tablet by mouth once daily FISH OIL CAPS One tablet by mouth daily OMEGA-3 FATTY ACIDS CAPS [id number] Gutierrez Tolbert MD Start: 05-23-2011 take 1 tablet by aubrey th once daily FISH OIL CAPS One tablet by mouth daily OMEGA-3 FATTY ACIDS CAPS [id number] Gregoria Diaz hydroCHLOROthiazide 25 mg oral tablet (20 sources) Thiazide Diuretic Start: 08-19-2020 End: 06-14-2022 take 1 capsule by mouth once daily hydroCHLOROthiazide 12.5 mg capsule Indications: Essential hypertension, benign Take 1 capsule by mouth once daily. 90 capsule 3 08/19/2020 06/14/2022 Discontinued Start: 11-21-2017 End: 02-23-2023 take 1 tablet by mouth once daily Hydrochlorothiazide 25 mg tablet Discontinued 25 mg PO daily December 22, 2021 10:14am February 23, 2023 10:01pm Start: 05-23-2011 take 1 tablet by aubrey once daily HYDROCHLOROTHIAZIDE 25 MG TABS One tablet by mouth daily HYDROCHLOROTHIAZIDE [id number] Gutierrez Tolbert MD Comment on above: Take 1 capsule by mo [facility] once daily. Take 1 tablet by aubrey once daily. loperamide hydrochloride 2 mg oral capsule (20 sources) Opioid Agonist Start: 0 End: 3 take 1 capsule by mouth every six hours as needed loperamide (IMODIUM) 2 mg cap(s) Take 1 capsule by mouth four times daily as needed. 100 capsule 3 04/09/2020 06/14/2022 Discontinued loperamide HCl ( IMODIUM) 2 mg tab Take 2 mg by mouth as needed. Active Comment on above: Take 1 capsule by mo [facility] four times daily as needed. Take 2 mg by mouth a s needed. losartan potassium 50 mg oral tablet (20 sources) Angiotensin 2 Receptor Brad Start: 2 End: 3 take 1 tablet by mouth once daily losartan (COZAAR) 100 mg tablet Take 1 tablet by mouth once daily. 90 tablet 1 08/24/2021 06/14/2022 Discontinued Start: 11-22-2017 End: 03-07-2023 take 1 tablet by mouth once daily Losartan 50 mg tablet Discontinued 50 mg PO daily November 22, 2017 11:32am February 25, 2023 12:39pm Start: 05-25-2011 take 1 tablet by aubrey th once daily COZAAR 50 MG TABS One tablet by mouth daily LOSARTAN POTASSIUM [id number] Gutierrez Tolbert MD Comment on above: take 1 tablet by aubrey once daily Take 1 tablet by aubrey once daily. meclizine hydrochloride 12.5 mg oral tablet (18 sources) Antiemetic Start: 9 End: 3 take 1 tablet by mouth every six hours as needed meclizine (ANTIVERT) 12.5 mg tab Take 1 tablet by mouth every 6 hours as needed (dizziness). 30 tablet 1 05/14/2018 06/14/2022 Discontinued Start: 01-04-2015 MECLIZINE HCL 12.5 MG TABS as needed MECLIZINE HCL [id number] Gutierrez Tolbert MD Start: 11-18-2013 End: 02-23-2023 take 1 tablet by mouth once daily as needed Meclizine 12.5 MG tablet Discontinued 12.5 mg PO DAILY NEEDED as needed for Vertigo November 18, 2013 12:00am February 23, 2023 10:01pm Comment on above: Take 1 tablet by aubrey every 6 hours as needed (dizziness). mometasone furoate 0.001 mg/mg topical ointment (5 sources) Corticosteroid Start: 01-26-20 End: 06-14-19 mometasone (ELOCON) 0.1 % ointment Indications: Stasis dermatitis of left lower extremity due to peripheral venous hypertension Apply to affected area once daily. 30 g 1 01/26/2020 06/14/2022 Discontinued Comment on above: Apply to affected ar ea once daily. MULTIPLE VITAMIN (2 sources) Start: 05-23-19 12 take 1 tablet by mouth once daily MULTIVITAMINS TABS One tablet by mouth daily MULTIPLE VITAMIN [id number] Gregoria Diaz mupirocin 0.02 mg/mg topical ointment (6 sources) RNA Synthetase Inhibitor Antibacterial Start: 03-09-20 End: 03-26-20 mupirocin (BACTROBAN) 2 % ointment Indications: Cellulitis of lower extremity, unspecified laterality , Bilateral lower extremity edema , Abrasion of right shoulder, subsequent encounter Apply 1 application to affected area once daily for 10 days. or until healed then discontinue. Apply to right shoulder abrasion and open and draining areas on both ankles. Cover with non-adherent dressing and secure with a guaze wrap. No latex in dressings due to allergy. Wash with soap and water between applications. 30 g 1 03/16/2023 03/26/2023 Comment on above: Apply 1 application to affected area once daily for 10 days. or until healed then discontinue. Apply to right shoulder abrasion and open and draining areas on both ankles. Cover with non-adherent dressing and secure with a guaze wrap. May apply bob wrap over all. Wash with soap and water between applications. Apply 1 application to affected area once daily for 10 days. or until healed then discontinue. Apply to right shoulder abrasion and open and draining areas on both ankles. Cover with non-adherent dressing and secure with a guaze wrap. No latex in dressings due to allergy. Wash with soap and water between applications. naproxen 500 mg oral tablet (5 sources) Nonsteroidal Anti-inflammatory Drug Start: 10-21-19 End: 06-14-19 take 1 tablet by mouth twice daily as needed for pain naproxen (NAPROSYN) 500 mg tablet Indications: Cat bite, initial encounter Take 1 tablet by mouth twice daily as needed for Pain. Take with food. 30 tablet 1 10/21/2019 06/14/2022 Discontinued Comment on above: Take 1 tablet by [facility] twice daily as needed for Pain. Take with food. potassium chloride 8 meq extended release oral capsule (1 source) Start: 03-16-20 End: 03-20-20 take 1 capsule by mouth once daily potassium chloride SR (MICRO-K) 8 mEq cpER Take 1 capsule by mouth once daily. 30 capsule 0 03/16/2023 03/20/2023 Discontinued Comment on above: Take 1 capsule by [facility] once daily. sertraline 50 mg oral tablet (5 sources) Serotonin Reuptake Inhibitor Start: 07-27-19 End: 08-03-19 23 take 1 tablet by mouth once daily sertraline (ZOLOFT) 50 mg tablet Indications: Major depressive disorder with current active episode, unspecified depression episode severity, unspecified whether recurrent Take 1 tablet by mouth once daily. 30 tablet 2 07/26/2022 08/02/2022 Discontinued (Side Effects) Comment on above: Take 1 tablet by [facility] once daily. triamcinolone acetonide 1 mg/ml topical cream (20 sources) Corticosteroid Start: 10-25-19 End: 04-22-20 triamcinolone acetonide (KENALOG) 0.1 % cream Indications: Venous (peripheral) insufficiency , Stasis dermatitis of both legs Apply 1 application to affected area three times daily. Apply sparingly to leg areas for rash/itching. 45 g 2 10/24/2022 12/22/2022 Discontinued Start: 09-04-2022 End: 09-18-2022 triamcinolone acetonide (AMBER ALOG) 0.5 % cream Apply 1 application to affected area twice daily for 14 days. For rash/itching. Apply sparingly. Avoid face/skin fold. 60 g 0 09/04/2022 09/18/2022 Active Start: 03-14-2018 End: 02-23-2023 Triamcinolone Acetonide 0.1 % cream Discontinued 1 NMA TOPICAL TWICE A DAY March 14, 2018 1:00am February 23, 2023 10:01pm Start: 03-14-2018 End: 02-23-2023 Triamcinolone Acetonide 0.1 % paste Discontinued 1 NMA DENTAL TWICE A DAY March 14, 2018 1:00am February 23, 2023 10:01pm Start: 03-14-2018 End: 02-23-2023 triamcinolone acetonide (AMBER ALOG) 0.1 % cream Indications: Venous (peripheral) insufficiency , Stasis dermatitis of both legs Apply 1 application to affected area twice daily. Apply sparingly to leg areas for rash/itching. 80 g 2 12/22/2022 Active Start: 02-22-2017 TRIAMCINOLONE ACETONIDE 0.1 % CREA as directed TRIAMCINOLONE ACETONIDE [id number] Gutierrez Tolbert MD Start: 02-22-2017 TRIAMCINOLONE ACETONIDE 0.1 % PSTE as directed TRIAMCINOLONE ACETONIDE [id number] Gutierrez Tolbert MD Comment on above: Apply 1 application to affected area twice daily for 14 days. For rash/itching. Apply sparingly. Avoid face/skin fold. Apply 1 application to affected area three times daily. Apply sparingly to leg areas for rash/itching. Apply 1 application to affected area twice daily. Apply sparingly to leg areas for rash/itching. valsartan 80 mg oral tablet (17 sources) Angiotensin 2 Receptor Brad Start: 8 End: 8 take 1 tablet by mouth once daily Valsartan (Diovan) 80 mg tablet Discontinued 80 mg PO daily November 21, 2017 12:00am November 22, 2017 11:31am Start: 05-23-2011 End: 05-25-2011 take 1 tablet by mouth once daily DIOVAN 80 MG TABS One tablet by mouth daily VALSARTAN [id number] Karime Franks RN Problems Active Problems Problem Classification Problem Date Documented Date Episodic/Chronic Abdominal pain (11 sources) Left inguinal pain; Translations: [Left lower quadrant pain] 04-23-2018 Episodic Cardiac dysrhythmias (20 sources) Ventricular premature beats; Translations: [Multiple premature ventricular complexes] Onset: 05-23-2011 05-23-2011 Chronic Conditions associated with dizziness or vertigo (4 sources) Dizziness; Translations: [Dizziness and giddiness] Onset: 09-15-2024 04-19-2024 Episodic Delirium, dementia, and amnestic and other cognitive disorders (20 sources) Dementia with behavioral disturbance; Translations: [Dementia with behavioral disturbance] Onset: 06-14-2022 Chronic Disorders of lipid metabolism (20 sources) Hyperlipidemia; Translations: [Hyperlipidemia, unspecified] Onset: 05-23-2011 Resolved: 06-14-2022 05-23-2011 Chronic E Codes: Fall (3 sources) Fall; Translations: [Unspecified fall, initial encounter] 09-09-2023 Episodic Essential hypertension (20 sources) Hypertensive disorder; Translations: [Essential (primary) hypertension] Onset: 05-23-2011 05-23-2011 Chronic Fluid and electrolyte disorders (14 sources) Hypokalemia; Translations: [Hypokalemia] 05-05-2022 Episodic Heart valve disorders (20 sources) Mitral valve prolapse; Translations: [Mitral valve disorder] Onset: 05-23-2011 Resolved: 01-04-2015 12-30-2015 Chronic Mood disorders (20 sources) Major depressive disorder; Translations: [Major depressive disorder, single episode, unspecified] Onset: 06-14-2022 Chronic Mycoses (1 source) Onychomycosis; Translations: [Tinea unguium] 11-22-2022 Episodic Open wounds of extremities (2 sources) Avulsion of toenail; Translations: [Unspecified open wound of unspecified toe(s) with damage to nail, initial encounter] Episodic Other aftercare (1 source) Patient encounter status; Translations: [Other care home (current) drug therapy] Episodic Other connective tissue disease (4 sources) Recurrent falls ; Translations: [Repeated falls] 02-23-2023 Episodic Other connective tissue disease (1 source) Repeated falls; Translations: [History of fall] 02-25-2023 Episodic Other diseases of veins and lymphatics (3 sources) Vascular insufficiency; Translations: [Venous insufficiency (chronic) (peripheral)] Episodic Other ear and sense organ disorders (1 source) Impacted cerumen of bilateral ears; Translations: [Impacted cerumen, bilateral] Episodic Other inflammatory condition of skin (1 source) Seborrheic dermatitis of scalp; Translations: [Seborrheic dermatitis, unspecified] Episodic Other inflammatory condition of skin (2 sources) Acute erythematous eruption of skin; Translations: [Erythematous condition, unspecified] Episodic Other injuries and conditions due to external causes (2 sources) Injury of great toe; Translations: [Unspecified injury of right foot, initial encounter] Episodic Other injuries and conditions due to external causes (3 sources) Closed injury of head; Translations: [Unspecified injury of head, initial encounter] 09-09-2023 Episodic Other skin disorders (1 source) Callosity; Translations: [Corns and callosities] 11-22-2022 Episodic Other upper respiratory infections (1 source) Sinusitis; Translations: [Chronic sinusitis, unspecified] Chronic Residual codes; unclassified (9 sources) Confusional state; Translations: [Disorientation, unspecified] 05-05-2022 Episodic Residual codes; unclassified (3 sources) Bilateral lower limb edema; Translations: [Localized edema] Episodic Residual codes; unclassified (1 source) Procedure and treatment not carried out due to patient leaving prior to being seen by health care provider; Translations: [Procedure and treatment not carried out due to patient leaving prior to being seen by health care provider] Onset: 10-09-2024 Episodic Schizophrenia and other psychotic disorders (9 sources) Paranoid delusion; Translations: [Delusional disorders] 05-05-2022 Chronic Screening and history of mental health and substance abuse codes (4 sources) H/O: anxiety state; Translations: [Personal history of other mental and behavioral disorders] 12-22-2022 Episodic Spondylosis; intervertebral disc disorders; other back problems (20 sources) Degeneration of lumbar intervertebral disc; Translations: [Other intervertebral disc degeneration, lumbar region] Onset: 10-08-2018 Resolved: 06-14-2022 10-08-2018 Chronic Spondylosis; intervertebral disc disorders; other back problems (20 sources) Sciatica; Translations: [Sciatica, left side] Onset: 06-27-2018 Resolved: 06-14-2022 11-04-2018 Episodic Superficial injury; contusion (6 sources) Contusion of hip; Translations: [Contusion of right hip, initial encounter] 09-09-2023 Episodic Thyroid disorders (20 sources) Acquired hypothyroidism; Translations: [Hypothyroidism, unspecified] Onset: 09-19-2024 01-30-2017 Chronic Unclassified (4 sources) Long-term drug therapy; Translations: [Long-term (current) use of other medications] Onset: 10-10-2013 10-10-2013 Urinary tract infections (1 source) Urinary tract infection, site not specified; Translations: [Urinary tract infection, site not specified] Onset: 10-17-2024 Episodic Past or Other Problems Problem Classification Problem Date Documented Da te Episodic/Chronic Allergic reactions (14 sources) Radiation-induced dermatosis; Translations: [Other skin changes due to chronic exposure to nonionizing radiation] Onset: 5 Resolved: 5 02-12-2013 Episodic Cardiac dysrhythmias (9 sources) Palpitations; Translations: [Palpitations] Onset: 2 Resolved: 8 05-23-2011 Episodic Diverticulosis and diverticulitis (11 sources) Diverticulosis of colon; Translations: [Diverticulosis of large intestine without perforation or abscess without bleeding] Onset: 1 Resolved: 3 10-25-2010 Chronic Malaise and fatigue (7 sources) Decline in functional status; Translations: [Other malaise] Onset: 4 02-23-2023 Episodic Noninfectious gastroenteritis (7 sources) Eosinophilic colitis; 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] Onset: 3 Resolved: 2 05-11-2021 Chronic Osteoarthritis (11 sources) Osteoarthritis of knee; Translations: [Unilateral primary osteoarthritis, unspecified knee] Onset: 1 Resolved: 3 08-30-2010 Chronic Other and unspecified benign neoplasm (11 sources) Adrenal adenoma; Translations: [Benign neoplasm of unspecified adrenal gland] Onset: 2 Resolved: 3 03-04-2012 Episodic Other and unspecified benign neoplasm (7 sources) Benign tumor of eyelid; Translations: [Other benign neoplasm of skin of unspecified eyelid, including canthus] Onset: 9 Resolved: 3 02-12-2013 Episodic Other and unspecified benign neoplasm (7 sources) Melanocytic nevus of trunk; Translations: [Melanocytic nevi of trunk] Onset: 1 Resolved: 5 09-01-2014 Episodic Other and unspecified benign neoplasm (7 sources) Dysplastic nevus of trunk; Translations: [Melanocytic nevi of trunk] Onset: 1 Resolved: 5 09-01-2014 Episodic Other and unspecified benign neoplasm (7 sources) Neurofibroma of trunk; Translations: [Benign neoplasm of peripheral nerves and autonomic nervous system of trunk, unspecified] Onset: 3 Resolved: 5 09-01-2014 Episodic Other circulatory disease (7 sources) Non-neoplastic nevus; Translations: [Nevus, non-neoplastic] Onset: 6 Resolved: 3 02-12-2013 Episodic Other connective tissue disease (7 sources) Soft tissue lesion of shoulder region; Translations: [Bursopathy, unspecified] Onset: 7 Resolved: 5 09-01-2014 Episodic Other connective tissue disease (7 sources) Ganglion cyst of tendon sheath; Translations: [Ganglion, unspecified site] Onset: 1 Resolved: 5 09-01-2014 Episodic Other diseases of veins and lymphatics (20 sources) Peripheral venous insufficiency; Translations: [Venous insufficiency (chronic) (peripheral)] Onset: 8 11-26-2017 Episodic Other diseases of veins and lymphatics (20 sources) Stasis dermatitis; Translations: [Venous insufficiency (chronic) (peripheral)] Onset: 8 10-24-2022 Episodic Other diseases of veins and lymphatics (7 sources) Disorder of vein of lower extremity; Translations: [Venous insufficiency (chronic) (peripheral)] Onset: 8 10-24-2022 Episodic Other gastrointestinal disorders (11 sources) Irritable bowel syndrome; Translations: [Irritable bowel syndrome without diarrhea] Onset: 1 Resolved: 3 08-30-2010 Chronic Other inflammatory condition of skin (7 sources) Seborrheic dermatitis; Translations: [Other seborrheic dermatitis] Onset: 9 Resolved: 3 02-12-2013 Episodic Other liver diseases (11 sources) Nodule of liver; Translations: [Other specified diseases of liver] Onset: 2 Resolved: 3 03-04-2012 Chronic Other lower respiratory disease (14 sources) Dyspnea; Translations: [Dyspnea, unspecified] Onset: 2 Resolved: 3 05-23-2011 Episodic Other nutritional; endocrine; and metabolic disorders (11 sources) Metabolic syndrome X; Translations: [Metabolic syndrome] Onset: 7 Resolved: 3 09-18-2006 Chronic Other nutritional; endocrine; and metabolic disorders (2 sources) Body Mass Index 27.0-27.9, adult; Translations: [Body Mass Index 27.0-27.9, adult] Onset: 5 01-04-2015 Episodic Other screening for suspected conditions (not mental disorders or infectious disease) (8 sources) Electrocardiogram abnormal; Translations: [Abnormal result of cardiovascular function study, unspecified] Onset: 2 Resolved: 6 05-23-2011 Episodic Other skin disorders (7 sources) Inflamed seborrheic keratosis; Translations: [Inflamed seborrheic keratosis] Onset: 5 Resolved: 5 09-01-2014 Episodic Other skin disorders (7 sources) Seborrheic keratosis; Translations: [Other seborrheic keratosis] Onset: 5 Resolved: 3 02-12-2013 Episodic Other skin disorders (7 sources) Disorder of skin pigmentation; Translations: [Disorder of pigmentation, unspecified] Onset: 6 Resolved: 3 02-12-2013 Episodic Other skin disorders (1 source) Localized swelling, mass and lump, lower limb, bilateral; Translations: [Localized swelling, mass and lump, lower limb, bilateral] Onset: 4 Episodic Residual codes; unclassified (1 source) Disorientation, unspecified; Translations: [Disorientation, unspecified] Onset: 4 Episodic Skin and subcutaneous tissue infections (9 sources) Cellulitis of toe; Translations: [Cellulitis of right toe] Onset: 7 Resolved: 8 Episodic Varicose veins of lower extremity (7 sources) Varicose vein of leg with phlebitis; Translations: [Varicose veins of unspecified lower extremity with inflammation] Onset: 9 Resolved: 5 09-01-2014 Episodic Viral infection (7 sources) Verruca vulgaris; Translations: [Viral wart, unspecified] Onset: 5 Resolved: 3 02-12-2013 Episodic Results Test Name Value Interpretation Reference Range Facility Anion gap in Serum or Plasma Ordered By: Emmanuel Park on 10-10-2024 Anion gap [Moles/Vol] 10 mmol/L 5-15 [facility] BUN/creatinine ratioOrdered By: Emmanuel Park on 10-10-2024 Urea nitrogen/Creatinine [Mass ratio] 38.1 mg/mg High 10-20 [facility] Bilirubin, totalOrdered By: Emmanuel Park on 10-10-2024 Bilirubin [Mass/Vol] 0.55 mg/dL 0.00-1.30 [facility] Carbon dioxide, total [Moles /volume] in Central venous bloodOrdered By: Emmanuel Park on 10-10-2024 CO2 [Moles/Vol] 26.1 mmol/L 21.0-32.0 [facility] Chloride assayOrdered By: Costa Park on 10-10-2024 Chloride [Moles/Vol] 103 mmol/L 98-108 [facility] Glomerular filtration rate ( GFR) estimation/1.73 sq m using serum, plasma, or whole bOrdered By: Emmanuel Park on 10-10-2024 GFR/1.73 sq M.predicted among non-blacks MDRD (S/P/Bld) [Vol rate/Area] 56 mL/min/{1.73_m2} Low >60 [facility] Comment on above: mL/min/1.73m2 CKD-EP I Creatinine Equation (2020) Hemoglobin A1c percentageOrd ered By: Emmanuel Park on 10-10-2024 HbA1c (Bld) [Mass fraction] 5.6 % <5.7 [facility] Comment on above: Normal < 5.7 % Predi abetic 5.7 - 6.4 % Diabetic >or= 6.5 % Please note range changes. Laboratory - Chemistry and C hemistry - challengeOrdered By: Emmanuel Park on 10-10-2024 AST [Catalytic activity/Vol] 18 U/L <32 [facility] Potassium measurement (mass/ volume)Ordered By: Emmanuel Park on 10-10-2024 Potassium (Unsp spec) [Mass/Vol] 4.9 mmol/L 3.3-5.1 [facility] Serum creatinine measurement (mass/volume)Ordered By: Emmanuel Park on 10-10-2024 Creatinine [Mass/Vol] 0.97 mg/dL 0.70-1.20 [facility] Serum globulin measurementOr dered By: Emmanuel Park on 10-10-2024 Globulin (S) [Mass/Vol] 2.6 g/dL 2.2-4.2 [facility] Serum glucose measurement (m ass/volume)Ordered By: Emmanuel Park on 10-10-2024 Glucose [Mass/Vol] 85 mg/dL 70-99 [facility] Serum or plasma alanine johnson otransferase (ALT) measurementOrdered By: Emmanuel Park on 10-10-2024 ALT [Catalytic activity/Vol] 11 U/L <35 [facility] Serum or plasma albumin jalil urement (mass/volume)Ordered By: Emmanuel Park on 10-10-2024 Albumin [Mass/Vol] 4.0 g/dL 3.4-4.8 [facility] Serum or plasma albumin/glob ulin mass ratioOrdered By: Emmanuel Park on 10-10-2024 Albumin/Globulin [Mass ratio] 1.5 {ratio} 0.9-2.4 [facility] Serum or plasma alkaline jama sphatase measurementOrdered By: Emmanuel Park on 10-10-2024 ALP [Catalytic activity/Vol] 84 U/L 35-104 [facility] Serum or plasma calcium jalil urement (mass/volume)Ordered By: Emmanuel Park on 10-10-2024 Calcium [Mass/Vol] 9.4 mg/dL 7.6-11.0 [facility] Serum or plasma urea nitroge n measurement (mass/volume)Ordered By: Emmanuel Park on 10-10-2024 Urea nitrogen [Mass/Vol] 37 mg/dL High 4-19 [facility] Sodium levelOrdered By: Harlan Park on 10-10-2024 Sodium [Moles/Vol] 139 mmol/L 133-145 [facility] TSH DL <= 0.005 mIU/L QnOrde red By: Emmanuel Park on 10-10-2024 TSH Qn 1.110 uIU/mL 0.300-4.20 0 [facility] ThyroxineOrdered By: Emmanuel camacho on 10-10-2024 T4 [Mass/Vol] 6.1 ug/dL 4.8-13.9 [facility] Total proteinOrdered By: Mami Park on 10-10-2024 Protein [Mass/Vol] 6.6 g/dL 5.9-8.4 [facility] Brain/Head without Contrasto n 10-06-2024 Brain/Head without Contrast [facility] [address] [place], [place] [id number] Brain/Head without Contrast MR#: [id number] Acct: [id number] Name: CHRISTY FOFANA Rep #: [id number] : [id number] F 89 From: Hayden Ferreira MD PCP: Dr. José Miguel Frias MD Status: PRE ER Study: Brain/Head without Contrast Date of Exam: 07/01 Exam# [id number] Ordering Dr: Lc Lo MD PROCEDURE: BRAIN/HEAD WITHOUT CONTRAST 10/06/2024 REASON FOR EXAM: HEAD INJURY TECHNIQUE: Head CT without intravenous contrast. Coronal and Sagittal reconstruction series were provided. One or more dose reduction techniques were used (e.g., Automated exposure control, adjustment of the mA and/or kV according to patient size, use of iterative reconstruction technique. RADIATION DOSE SUMMARY: CTDlvol: 45.0 mGy DLP: 813 mGycm COMPARISON: CT head 04/11/2024 FINDINGS: Brain: No acute intracranial hemorrhage, mass effect, or midline shift. Patchy hypodensity in the right frontal lobe, unchanged. CSF Spaces: Moderate generalized cerebral atrophy Sinuses/Mastoids: Clear at visualized levels Bones: No displaced calvarial fracture. Soft tissue debris in the external auditory canals, likely cerumen. Orbits: Prior cataract extraction bilaterally. CT/Brain/Head without Contrast IMPRESSION: No acute intracranial abnormality. Reading Location: [facility] CC: Dr. Lc Lo MD; Dr. José Miguel Frias MD Lang Path Therapist: Signed Normal [facility] Bilirubin Test strip Ql (U)O rdered By: Emmanuel Park on 09-30-2024 Bilirubin Ql (U) Negative Negative [facility] Ketones Test strip Ql (U)Ord ered By: Emmanuel Park on 09-30-2024 Ketones Ql (U) Negative Negative [facility] Microscopic analysis of urin e for red blood cells (RBC)Ordered By: Emmanuel Park on 09-30-2024 Microscopic analysis of urine for red blood cells (RBC) 0 SEEN /hpf 0-5 [facility] Mucus LM Ql (Urine sed)Order ed By: Emmanuel Park on 09-30-2024 Mucus Ql (Urine sed) 0 SEEN /hpf [facility] Nitrite Test strip Ql (U)Ord ered By: Emmanuel Park on 09-30-2024 Nitrite Ql (U) Negative Negative [facility] Protein Test strip Ql (U)Ord ered By: Emmanuel Park on 09-30-2024 Protein Ql (U) 15 mg/dl High Negative [facility] Squamous epithelial cells de tection in urine sediment by light microscopyOrdered By: Emmanuel Park on 09-30-2024 Epithelial cells.squamous LM Ql (Urine sed) 0-5 SEEN /hpf 5-10 [facility] Urine clarityOrdered By: Mami Park on 09-30-2024 Clarity (U) Clear Clear [facility] Urine color determinationOrd ered By: Emmanuel Park on 09-30-2024 Color (U) Yellow Yellow [facility] Urine cultureOrdered By: Mami Park on 09-30-2024 Bacteria identified Cx Nom (U) Positive Abnormal [facility] Urine glucose detectionOrder ed By: Emmanuel Park on 09-30-2024 Glucose Ql (U) Normal mg/dl Normal [facility] Urine leukocyte esterase det ection by dipstickOrdered By: Emmanuel Park on 09-30-2024 Leukocyte esterase Test strip Ql (U) Negative Negative [facility] Urine pHOrdered By: Emmanuel mora on 09-30-2024 pH (U) 6.0 [pH] 5.0 - 8.0 [facility] Urine sediment bacteria coun t by microscopy (number/high power field)Ordered By: Emmanuel Park on 09-30-2024 Bacteria LM.HPF (Urine sed) [#/Area] 0 /[HPF] None Seen [facility] Urine specific gravity measu rementOrdered By: Emmanuel Park on 09-30-2024 Specific gravity (U) [Rel density] 1.020 1.002-1.03 0 [facility] Urine urobilinogen measureme ntOrdered By: Emmanuel Park on 09-30-2024 Urobilinogen Ql (U) Normal mg/dl Normal [facility] White blood cell countOrdere d By: Emmanuel Park on 09-30-2024 White blood cell count 0-5 SEEN /hpf 0-5 [facility] Anion gap in Serum or Plasma Ordered By: Emmanuel Park on 08-21-2024 Anion gap [Moles/Vol] 9 mmol/L 5-15 [facility] BUN/creatinine ratioOrdered By: Emmanuel Park on 08-21-2024 Urea nitrogen/Creatinine [Mass ratio] 28.9 mg/mg High 10-20 [facility] Bilirubin, totalOrdered By: Emmanuel Park on 08-21-2024 Bilirubin [Mass/Vol] 0.48 mg/dL 0.00-1.30 [facility] Carbon dioxide, total [Moles /volume] in Central venous bloodOrdered By: Emmanuel Park on 08-21-2024 CO2 [Moles/Vol] 25.6 mmol/L 21.0-32.0 [facility] Chloride assayOrdered By: Costa Park on 08-21-2024 Chloride [Moles/Vol] 105 mmol/L 98-108 [facility] Glomerular filtration rate ( GFR) estimation/1.73 sq m using serum, plasma, or whole bOrdered By: Emmanuel Park on 08-21-2024 GFR/1.73 sq M.predicted among non-blacks MDRD (S/P/Bld) [Vol rate/Area] 69 mL/min/{1.73_m2} >60 [facility] Comment on above: mL/min/1.73m2 CKD-EP I Creatinine Equation (2020) Laboratory - Chemistry and C hemistry - challengeOrdered By: Emmanuel Park on 08-21-2024 AST [Catalytic activity/Vol] 19 U/L <32 [facility] Potassium measurement (mass/ volume)Ordered By: Emmanuel Park on 08-21-2024 Potassium (Unsp spec) [Mass/Vol] 4.1 mmol/L 3.3-5.1 [facility] Serum creatinine measurement (mass/volume)Ordered By: Emmanuel Park on 08-21-2024 Creatinine [Mass/Vol] 0.82 mg/dL 0.70-1.20 [facility] Serum globulin measurementOr dered By: Emmanuel Park on 08-21-2024 Globulin (S) [Mass/Vol] 2.4 g/dL 2.2-4.2 [facility] Serum glucose measurement (m ass/volume)Ordered By: Emmanuel Park on 08-21-2024 Glucose [Mass/Vol] 80 mg/dL 70-99 [facility] Serum or plasma alanine johnson otransferase (ALT) measurementOrdered By: Emmanuel Park on 08-21-2024 ALT [Catalytic activity/Vol] 12 U/L <35 [facility] Serum or plasma albumin jalil urement (mass/volume)Ordered By: Emmanuel Park on 08-21-2024 Albumin [Mass/Vol] 3.6 g/dL 3.4-4.8 [facility] Serum or plasma albumin/glob ulin mass ratioOrdered By: Emmanuel Park on 08-21-2024 Albumin/Globulin [Mass ratio] 1.5 {ratio} 0.9-2.4 [facility] Serum or plasma alkaline jama sphatase measurementOrdered By: Emmanuel Park on 08-21-2024 ALP [Catalytic activity/Vol] 75 U/L 35-104 [facility] Serum or plasma calcium jalil urement (mass/volume)Ordered By: Emmanuel Park on 08-21-2024 Calcium [Mass/Vol] 8.8 mg/dL 7.6-11.0 [facility] Serum or plasma urea nitroge n measurement (mass/volume)Ordered By: Emmanuel Park on 08-21-2024 Urea nitrogen [Mass/Vol] 24 mg/dL High 4-19 [facility] Sodium levelOrdered By: Harlan Park on 08-21-2024 Sodium [Moles/Vol] 139 mmol/L 133-145 [facility] Total proteinOrdered By: Mami Park on 08-21-2024 Protein [Mass/Vol] 6.0 g/dL 5.9-8.4 [facility] CNPNon 04-23-2024 CNPN Telephone (FAMPTW) CHRISTY FOFANA ([id number]) 1935 F Date Time Provider Department 04/23/24 JOSÉ MIGUEL FRIAS During your visit today, we recorded the following information about you: Niecy Mary 04/23/2024 2:29 PM Signed Assisted Living [facility] is calling José Miguel Frias MD today to request a medication not on current med list: Disp Refills Start End hydrOXYzine pamoate (VISTARIL) 25 mg capsule 30 5 Patient has been identified by name and birthdate. Closing statement: Results or non-symptom based questions: Thank you for calling [facility], your call will be returned within the next business day. Niecy Dugan [facility] Delfina Hernandez MA 04/23/2024 4:08 PM Signed Prescription Refill Information The patient has been identified by name and date of : Yes Caregiver verified no other encounters exist for this prescription request: Yes Caregiver confirmed with patient/requestor that no other refills are due, in the near future, with this provider at this time: Yes The last office visit in the department: 05/29/23 Does the patient have a future office visit with this provider/department: No Requested Prescriptions Pending Prescriptions Disp Refills hydrOXYzine pamoate (VISTARIL) 25 mg capsule 30 capsule 2 Sig: Take 1 capsule by mouth three times a day as needed for anxiety. Delfina Hernandez MA April 23, 2024 4:08 PM José Miguel Frias MD 04/23/2024 4:58 PM Signed Patient's request for medication has been refused. See reason and notify patient. Requested Prescriptions Refused Prescriptions Disp Refills hydrOXYzine pamoate (VISTARIL) 25 mg capsule 1 capsule 0 Sig: Take 1 capsule by mouth three times a day as needed for anxiety. Refused By: JOSÉ MIGUEL FRIAS Reason for Refusal: Patient no longer under Prescriber care PCP DO Jamal Granado Helen E, LPN 04/24/2024 11:05 AM Signed PCP changed to in house Doctor. Lina Berry LPN Allergies As of Date: 04/23/2024 Noted Allergy Reaction NOVACAINE (PROCAINE) 03/01/2011 1 - Mental Status Change Comments: Laughing and crying constantly- cannot tolerate any rohit AUGMENTIN (AMOXICILLIN-POT CLAVUL*10/24/2019 6 - Diarrhea CLINDAMYCIN 09/29/2008 6 - Diarrhea Comments: Claims made her nauseated and had diarrhea DILAUDID (HYDROMORPHONE (BULK)) 07/05/2005 DOXYCYCLINE MONOHYDRATE 11/08/2016 8 - GI Upset LATEX 03/16/2023 14 - Other: See Comments Comments: red, swelling, blisters LIPITOR (ATORVASTATIN CALCIUM) 06/07/2005 Comments: myalgia LISINOPRIL 07/28/2008 Comments: cough MORPHINE 12/30/2004 PENICILLINS 12/30/2004 POTASSIUM 09/19/2007 Comments: diarrhea SULFA (SULFONAMIDE ANTIBIOTICS) 12/07/2006 4 - Hives Comments: Pt states that she has an allergy to sulfa TETRACYCLINE 12/30/2004 Date Reviewed: 05/29/2023 Reviewed by: Mckenzie Funk APRN.MOLD MAKER - Fully Assessed Reason for Visit: request medicaiton not on current med list [Other] Visit Diagnosis:Dementia with behavioral disturbance (HCC) [F03.918] Prescriptions as of 04/24/2024 - furosemide (LASIX) 40 mg tablet Take 1 tablet by mouth once daily for 7 days. - betamethasone dipropionate, augmented (DIPROLENE) 0.05 % cream Apply to bilateral lower legs twice a day for two weeks. Then use as needed for any flare ups (twice a day for two weeks) - spironolactone (ALDACTONE) 25 mg tablet Take 1 tablet by mouth once daily. - simvastatin (ZOCOR) 20 mg tablet Take 1 tablet by mouth daily at bedtime. - levothyroxine (SYNTHROID) 88 mcg tablet TAKE ONE TABLET BY MOUTH EVERY DAY ON EMPTY STOMACH - aspirin, enteric coated (ECOTRIN LOW STRENGTH) 81 mg EC tablet Take 1 tablet by mouth once daily. - multivitamin tablet Take 1 tablet by mouth once daily. - rivastigmine (EXELON) 4.6 mg/24 hour patch Apply 1 Patch as directed once daily. Per psychiatry. - QUEtiapine (SEROQUEL) 25 mg tablet Take 1 tablet by mouth two times a day. Per psychiatry. - FLUoxetine (PROZAC) 20 mg capsule Take 1 capsule by mouth once daily. Per psychiatry. - loperamide HCl (IMODIUM) 2 mg tab Take 2 mg by mouth as needed. - acetaminophen (TYLENOL EXTRA STRENGTH) 500 mg tablet Take 1 tablet by mouth three times daily. 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 Normal [facility] Urine Cultureon 04-12-2024 URC Culture exhibits no growth. Normal [facility] Comment on above: Performed By: #### M 100.2200 #### [facility] Laboratory [address] [place], [address] 12 Lead EKGon 04-11-2024 12 Lead EKG [facility] [address] [place] [address] 12 Lead EKG 04/11/24 0610 MR#: [id number] Acct: [id number] Name: CHRISTY FOFANA Rep #: [id number] : 1935 88 From: Cory Hopper MD Attending Dr: Status: DEP ER Ordering Dr: Ellis Avila DO Date: 04/11/24 Location: ED Sex: F C Admitted: Test Reason : DYSRHYTHMIA Blood Pressure : */* mmHG Vent. Rate : 72 BPM Atrial Rate : 72 BPM P-R Int : 196 ms QRS Dur : 126 ms QT Int : 440 ms P-R-T Axes : 90 -47 30 degrees QTcB Int : 481 ms Normal sinus rhythm Left axis deviation Left ventricular hypertrophy with QRS widening ( R in aVL , Sanders product ) Abnormal ECG Confirmed by Cory Hopper ([id number]), continuity editor NADEEM HINKLE ([id number]) on 04/14/2024 6:52:09 AM Referred By: Confirmed By: Cory Hopper 04/14/2452 Date Cory Hopper MD CC: Dr. José Miguel Frias MD; Ellis Avila DO Signed Normal [facility] Basic Metabolic Profile (BMP )on 04-11-2024 BUN/CRE 39.7 RATIO High 10-20 [facility] Comment on above: Performed By: #### L 501.5200, L100.0100, L500.2500 #### [facility] [address] [place], [address] CA,Total 9.4 mg/dL Normal 8.5-10.1 [facility] Comment on above: Performed By: #### L 501.5200, L100.0100, L500.2500 #### [facility] [address] [place], [address] Chloride [Moles/Vol] 103 mmol/L Normal 98-107 [facility] Comment on above: Performed By: #### L 501.5200, L100.0100, L500.2500 #### [facility] [address] [place], [address] CO2 [Moles/Vol] 27.0 mmol/L Normal 21.0-32.0 [facility] Comment on above: Performed By: #### L 501.5200, L100.0100, L500.2500 #### [facility] [address] [place], [address] Creatinine [Mass/Vol] 0.96 mg/dL Normal 0.55-1.02 [facility] Comment on above: Result Comment: The validity of the calculated GFR GFRAA in patients over 70 years has not been determined. Clinical correlation is essential. Performed By: #### L 501.5200, L100.0100, L500.2500 #### [facility] [address] [place], [address] ECRCL 49.15 ml/min Normal [facility] Comment on above: Performed By: #### L 501.5200, L100.0100, L500.2500 #### [facility] [address] [place], [address] EST GFR - AA 71 mL/min Normal >60 [facility] Comment on above: Result Comment: Afri can Libyan GFR Calc Performed By: #### L 501.5200, L100.0100, L500.2500 #### [facility] [address] [place], [address] GAP 7 Normal 5-15 [facility] Comment on above: Performed By: #### L 501.5200, L100.0100, L500.2500 #### [facility] [address] [place], [address] GFR/1.73 sq M.predicted among non-blacks MDRD (S/P/Bld) [Vol rate/Area] 59 mL/min/{1.73_m2} Low >60 [facility] Comment on above: Result Comment: Non- GFR Calc Performed By: #### L 501.5200, L100.0100, L500.2500 #### [facility] [address] [place], [address] Glucose [Mass/Vol] 112 mg/dL High 74-106 [facility] Comment on above: Result Comment: Fast ing Glucose result from 100 to 125 mg/dL suggests IMPAIRED HOMEOSTASIS per A.D.A. criteria. Performed By: #### L 501.5200, L100.0100, L500.2500 #### [facility] [address] [place], [address] Potassium [Moles/Vol] 4.1 mmol/L Normal 3.5-5.1 [facility] Comment on above: Performed By: #### L 501.5200, L100.0100, L500.2500 #### [facility] [address] [place], [address] Sodium [Moles/Vol] 137 mmol/L Normal 136-145 [facility] Comment on above: Performed By: #### L 501.5200, L100.0100, L500.2500 #### [facility] [address] [place], [address] Urea nitrogen [Mass/Vol] 38 mg/dL High 7-18 [facility] Comment on above: Performed By: #### L 501.5200, L100.0100, L500.2500 #### [facility] [address] [place], [address] Brain/Head without Contrasto n 04-11-2024 Brain/Head without Contrast [facility] Imaging Services [address] [place] [address] Brain/Head without Contrast MR#: [id number] Acct: [id number] Name: CHRISTY FOFANA Rep #: [id number] : 1935 F 88 From: Mario Ruvalcaba MD PCP: Dr. José Miguel Frias MD Status: [facility] Study: Brain/Head without Contrast Date of Exam: 10/28 Exam# [id number] Ordering Dr: Ellis Avila DO [id number] EXAM: CT HEAD WITHOUT INTRAVENOUS CONTRAST CLINICAL INDICATION: dizziness TECHNIQUE: Multiple axial images were obtained of the head without intravenous contrast. This CT exam was performed using one or more of the following dose reduction techniques: automated exposure control, adjustment of the mA and/or kV according to patient size, and/or use of iterative reconstruction technique. RADIATION DOSE: CTDIvol = 44.99 mGy, DLP = 745.49 mGy-cm COMPARISON: Head CT 09/01/2023 FINDINGS: BRAIN AND EXTRA-AXIAL SPACES: Diffuse cerebral volume loss. Periventricular small vessel ischemic changes. No intra- or extra-axial hemorrhage. No intracranial mass or mass effect. Posterior fossa structures are unremarkable. No hydrocephalus. Basal cisterns are patent. BONES/JOINTS: Unremarkable. No discrete lytic or blastic abnormalities. VASCULATURE: Vascular calcifications. SINUSES: Unremarkable as visualized. Clear. MASTOID AIR CELLS: Unremarkable. Clear. ORBITS: Visualized globes, extraocular muscles, optic nerves and retrobulbar fat appear unremarkable. ASPECTS: 10. CT/Brain/Head without Contrast IMPRESSION: 1. No acute intracranial abnormalities. 2. Age-related changes. Electronically Signed: Mario Ruvalcaba MD at 7:21 EST , CC: Dr. José Miguel Frias MD; Ellis Avila DO Lang Path Therapist: Signed Normal [facility] CBC W/Diff, Automatedon 12-0 Absolute Lymph 1.57 X10 3/uL Normal 0.83-4.51 [facility] Comment on above: Performed By: #### L 501.5200, L100.0100, L500.2500 #### [facility] [address] [place], [address] Absolute Neut 4.2 X10 3/uL Normal 2.0-7.7 [facility] Comment on above: Performed By: #### L 501.5200, L100.0100, L500.2500 #### [facility] [address] [place], [address] Basophils/100 WBC (Bld) 0.6 % Normal 0-1 [facility] Comment on above: Performed By: #### L 501.5200, L100.0100, L500.2500 #### [facility] [address] [place], [address] Eosinophils/100 WBC (Bld) 3.0 % Normal 0-5 [facility] Comment on above: Performed By: #### L 501.5200, L100.0100, L500.2500 #### [facility] [address] [place], [address] Erythrocyte distribution width (RBC) [Ratio] 12.9 % Normal 11.6-14.6 [facility] Comment on above: Performed By: #### L 501.5200, L100.0100, L500.2500 #### [facility] [address] [place], [address] Hematocrit (Bld) [Volume fraction] 41.4 % Normal 37-47 [facility] Comment on above: Performed By: #### L 501.5200, L100.0100, L500.2500 #### [facility] [address] [place], [address] Hemoglobin (Bld) [Mass/Vol] 13.3 g/dL Normal 12.0-15.0 [facility] Comment on above: Performed By: #### L 501.5200, L100.0100, L500.2500 #### [facility] [address] [place], [address] IG% 0.300 Normal 0.0-0.9 [facility] Comment on above: Result Comment: IG% - Immature Granulocytes (promyelocytes, myelocytes and metamyelocytes) > 1% indicates that a LEFT SHIFT is Present. Performed By: #### L 501.5200, L100.0100, L500.2500 #### [facility] [address] [place], [address] Lymphocytes/100 WBC (Bld) 23.4 % Normal 19-41 [facility] Comment on above: Performed By: #### L 501.5200, L100.0100, L500.2500 #### [facility] [address] [place], [address] MCH (RBC) [Entitic mass] 29.7 pg Normal 27.0-32.0 [facility] Comment on above: Performed By: #### L 501.5200, L100.0100, L500.2500 #### [facility] [address] [place], [address] MCHC (RBC) [Mass/Vol] 32.1 g/dL Normal 32-36 [facility] Comment on above: Performed By: #### L 501.5200, L100.0100, L500.2500 #### [facility] [address] [place], [address] MCV (RBC) [Entitic vol] 92.4 fL Normal 81-99 [facility] Comment on above: Performed By: #### L 501.5200, L100.0100, L500.2500 #### [facility] [address] [place], [address] Monocytes/100 WBC (Bld) 9.8 % Normal 0-10 [facility] Comment on above: Performed By: #### L 501.5200, L100.0100, L500.2500 #### [facility] [address] [place], [address] Neutrophils/100 WBC (Bld) 62.9 % Normal 47-70 [facility] Comment on above: Performed By: #### L 501.5200, L100.0100, L500.2500 #### [facility] [address] [place], [address] Nucleated RBC (Bld) [#/Vol] 0 10*3/uL Normal 0-5 [facility] Comment on above: Performed By: #### L 501.5200, L100.0100, L500.2500 #### [facility] [address] [place], [address] Platelet mean volume (Bld) [Entitic vol] 9.7 fL Normal 6.2-12.0 [facility] Comment on above: Performed By: #### L 501.5200, L100.0100, L500.2500 #### [facility] [address] [place], [address] Platelets (Bld) [#/Vol] 208 10*3/uL Normal 150-450 [facility] Comment on above: Performed By: #### L 501.5200, L100.0100, L500.2500 #### [facility] [address] [place], [address] RBC (Bld) [#/Vol] 4.48 10*6/uL Normal 4.2-5.4 [facility] Comment on above: Performed By: #### L 501.5200, L100.0100, L500.2500 #### [facility] [address] [place], [address] RDW SD 43.6 fl Normal 35.1-43.9 [facility] Comment on above: Performed By: #### L 501.5200, L100.0100, L500.2500 #### [facility] [address] [place], [address] WBC (Bld) [#/Vol] 6.7 10*3/uL Normal 4.4-11.0 [facility] Comment on above: Performed By: #### L 501.5200, L100.0100, L500.2500 #### [facility] [address] [place], [address] Emergency Department Summary on 04-11-2024 Emergency Department Summary [facility] Medical Records Department [address] [place] [address] Emergency Department Summary 04/11/24 MR#: [id number] Acct: [id number] Name: CHRISTY FOFANA Rep #: [id number] : 1935 88 From: Ellis Avila DO PCP: Dr. José Miguel Frias MD Status:REG ER Location: ED ADDENDUM by Dr. Mauricio Stewart DO on 04/11/[address] of the head showed no acute findings, patient's urine showed small leuk esterase, urine culture is pending. I have spoken to patient's daughter and son-in-law at bedside. We have reviewed all radiographic and lab testing. Patient is safe to go back to nursing facility. They are happy with the thorough testing that was done, because patient did fall several times at [facility] last week and she was not sent to the ER for evaluation. They will follow-up with patient's physician at the nursing facility, and may be referred to neurologist if indicated. He will continue trying to increase fluids, patient and family happy with care and testing, no questions at discharge 04/11/24 0844 Cosigner Signature (if applicable): cc: Dr. José Miguel Frias MD * Signed HPI History of Present Illness Chief Complaint: Dizziness Informant: patient, family and SNF Narrative Narrative: Patient is an 88-year-old female from the long term with past medical history of hypertension hyperlipidemia dementia and spinal stenosis. Chart review also reveals she has a history of declining functional status and multiple/recurrent falls. Reportedly the patient awoke this morning and complained of feeling dizzy and shaky. However she cannot describe if the dizziness is more of an off-balance sensation or lightheaded/syncopal in nature. She reports nausea without bouts of vomiting or diarrhea. She denies any abdominal pain or dysuria. However family/daughter reports that her unsteady gait has been worsening recently and she has been having more frequent falls and therefore with the persistent and worsening symptoms was sent in for evaluation [facility] Medical History Anxiety Spinal stenosis Depression Hypothyroidism Non-smoker Atrial fibrillation Chest pain Hypertension Dementia Groin pain, chronic, left Hypothyroidism Nonrheumatic mitral (valve) prolapse Hyperlipidemia Premature ventricular contraction Premature atrial contractions Home Medications ???Medication ???Instructions ???Recorded ???Last Taken ???Type aspirin 81 mg tablet,delayed 81 mg PO DAILY@0800 11/18/13 Unknown History release multivitamin with folic acid 400 1 tab PO DAILY 11/18/13 Unknown History mcg tablet simvastatin 20 mg tablet 20 mg PO QHS 10/16/16 Unknown History levothyroxine 88 mcg tablet 88 mcg PO QDAY 11/21/17 Unknown History fluoxetine 20 mg capsule (Prozac) 20 mg PO DAILY 02/23/23 Unknown History rivastigmine 4.6 mg/24 hour 4.6 mg transdermal DAILY 02/23/23 Unknown History transdermal patch melatonin 3 mg capsule 3 mg PO QHS 02/25/23 Unknown History quetiapine 25 mg tablet 25 mg PO BID depression 30 days 02/25/23 Unknown Rx #60 tabs furosemide 20 mg tablet 20 mg PO SUTUTHSA 04/11/24 Unknown History furosemide 40 mg tablet 40 mg PO MOWEFR 04/11/24 Unknown History hydroxyzine HCl 25 mg tablet 25 mg PO TID 04/11/24 Unknown History ondansetron 4 mg disintegrating 4 mg PO Q8H PRN nausea and vomiting 04/11/24 Unknown History tablet spironolactone 25 mg tablet 25 mg PO DAILY 04/11/24 Unknown History Allergy/AdvReac Type Severity Reaction Status Date / Time clindamycin Allergy Vomiting Verified 04/11/24 05:54 Penicillins (PCN) Allergy Hives Verified 04/11/24 05:54 Sulfa (Sulfonamide Allergy Hives Verified 04/11/24 05:54 Antibiotics) atorvastatin calcium (From AdvReac Diarrhea Verified 04/11/24 05:54 Lipitor) hydromorphone HCl (From AdvReac Vomiting Verified 04/11/24 05:54 Dilaudid) morphine AdvReac Vomiting Verified 04/11/24 05:54 potassium AdvReac Diarrhea Verified 04/11/24 05:54 procaine (From Novocain) AdvReac Other Verified 04/11/24 05:54 tetracycline (Tetracycline) AdvReac Vomiting Verified 04/11/24 05:54 Family History Father CAD (coronary artery disease) ICD (implantable cardioverter-defibrillator) in place Brother Pacemaker Brother CAD (coronary artery disease) Myocardial infarction Surgical History History of cataract extraction History of cholecystectomy History of hernia repair History of hysterectomy History of knee replacement procedure of left knee History of knee replacement procedure of right knee Social History Smoking Status: Never smok (more content not included)... Normal [facility] Magnesiumon 04-11-2024 Magnesium [Mass/Vol] 2.5 mg/dL Normal 1.6-2.6 [facility] Comment on above: Performed By: #### L 501.5200, L100.0100, L500.2500 #### [facility] [address] [place], [address] Urinalysis, Completeon 04-11 EPI,SQUAMOUS 0-5 SEEN Normal 5-10 [facility] Comment on above: Order Comment: BLADD ER TAP Performed By: #### L 400.0001 #### [facility] [address] [place], [address] WBC 0-5 SEEN Normal 0-5 [facility] Comment on above: Order Comment: BLADD ER TAP Performed By: #### L 400.0001 #### [facility] [address] [place], [address] BACTERIA 0 SEEN Normal None Seen [facility] Comment on above: Order Comment: BLADD ER TAP Performed By: #### L 400.0001 #### [facility] [address] [place], [address] Mucus Ql (Urine sed) 0 SEEN Normal [facility] Comment on above: Order Comment: BLADD ER TAP Performed By: #### L 400.0001 #### [facility] [address] [place], [address] RBC 0 SEEN Normal 0-5 [facility] Comment on above: Order Comment: BLADD ER TAP Performed By: #### L 400.0001 #### [facility] [address] [place], [address] [facility]FA[facility] ([id number]) 1935 F Date Time Provider Department 12/19/23 JOSÉ MIGUEL FRIAS During your visit today, we recorded the following information about you: Lina Berry LPN 12/19/2023 4:52 PM Signed [facility] NAVIGATION OUTREACH Action/FYI Reason for Outreach Care Gap/HCC or Scheduling Wellness Visits Care Gaps due: Medicare Annual Wellness Visit Patient Contacted: Patient is currently at [facility], she is seeing in-house Dr. Emmanuel Park Navigation Signature: Lina Berry LPN December 19, 2023 4:51 PM Allergies As of Date: 12/19/2023 Noted Allergy Reaction NOVACAINE (PROCAINE) 03/01/2011 1 - Mental Status Change Comments: Laughing and crying constantly- cannot tolerate any rohit AUGMENTIN (AMOXICILLIN-POT CLAVUL*10/24/2019 6 - Diarrhea CLINDAMYCIN 09/29/2008 6 - Diarrhea Comments: Claims made her nauseated and had diarrhea DILAUDID (HYDROMORPHONE (BULK)) 07/05/2005 DOXYCYCLINE MONOHYDRATE 11/08/2016 8 - GI Upset LATEX 03/16/2023 14 - Other: See Comments Comments: red, swelling, blisters LIPITOR (ATORVASTATIN CALCIUM) 06/07/2005 Comments: myalgia LISINOPRIL 07/28/2008 Comments: cough MORPHINE 12/30/2004 PENICILLINS 12/30/2004 POTASSIUM 09/19/2007 Comments: diarrhea SULFA (SULFONAMIDE ANTIBIOTICS) 12/07/2006 4 - Hives Comments: Pt states that she has an allergy to sulfa TETRACYCLINE 12/30/2004 Date Reviewed: 05/29/2023 Reviewed by: Mckenzie Funk, PRESS SET UP.MOLD MAKER - Fully Assessed Reason for Visit: Patient Outreach [Other] Prescriptions as of 12/19/2023 - furosemide (LASIX) 40 mg tablet Take 1 tablet by mouth once daily for 7 days. - betamethasone dipropionate, augmented (DIPROLENE) 0.05 % cream Apply to bilateral lower legs twice a day for two weeks. Then use as needed for any flare ups (twice a day for two weeks) - spironolactone (ALDACTONE) 25 mg tablet Take 1 tablet by mouth once daily. - simvastatin (ZOCOR) 20 mg tablet Take 1 tablet by mouth daily at bedtime. - levothyroxine (SYNTHROID) 88 mcg tablet TAKE ONE TABLET BY MOUTH EVERY DAY ON EMPTY STOMACH - aspirin, enteric coated (ECOTRIN LOW STRENGTH) 81 mg EC tablet Take 1 tablet by mouth once daily. - multivitamin tablet Take 1 tablet by mouth once daily. - rivastigmine (EXELON) 4.6 mg/24 hour patch Apply 1 Patch as directed once daily. Per psychiatry. - QUEtiapine (SEROQUEL) 25 mg tablet Take 1 tablet by mouth two times a day. Per psychiatry. - FLUoxetine (PROZAC) 20 mg capsule Take 1 capsule by mouth once daily. Per psychiatry. - loperamide HCl (IMODIUM) 2 mg tab Take 2 mg by mouth as needed. - acetaminophen (TYLENOL EXTRA STRENGTH) 500 mg tablet Take 1 tablet by mouth three times daily. 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] 02/12/2006 02/12/2013 Dysmetabolic syndrome X [E88.810] 09/18/2006 06/14/2022 Disorders of bursae and tendons in shoulder reg*09/18/2006 09/01/2014 Hypothyroidism, acquired [E03.9] Venous (peripheral) insufficiency [I87.2] 10/29/2007 Benign neoplasm of eyelid, including canthus [D*08/10/2008 02/12/2013 Other seborrheic dermatitis [L21.8] 08/10/2008 02/12/2013 Varicose veins of lower extremities with inflam*08/10/2008 09/01/2014 Irritable bowel syndrome [K58.9] 08/30/2010 06/14/2022 Osteoarthritis of knee [M17.9] 08/30/2010 06/14/2022 Ganglion of tendon [M67.40] 08/30/2010 09/01/2014 Melanocytic Nevus of trunk: mid lower back: irr*10/05/2010 09/01/2014 Atypical(?) nevus of mid lower back [D22.5] 10/05/2010 09/01/2014 Diverticulosis of colon (without mention of hem*10/25/2010 06/14/2022 Liver nodule [K76.89] 03/04/2012 06/14/2022 Adrenal adenoma [D35.00] 03/04/2012 06/14/2022 Eosinophilic colitis [K52.82] 06/10/2012 05/11/2021 Actinic skin damage [L57.8] 08/23/2012 09/01/2014 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] 02/12/2013 09/01/2014 Hyperlipidemia LDL goal <130 [E78.5] 12/16/2015 Stasis dermatitis of both legs [I87.2] 08/01/2017 Cellulitis of left lower limb [L03.116] 01/31/2017 02/11/2018 Dyspnea [R06.00] 05/23/2011 06/14/2022 Hypertension [I10] 11/26/2017 Mitral valve prolapse [I34.1] 01/04/2015 Palpitations [R00.2] 05/23/2011 02/11/2018 Pure hypercholesterolemia, unspecified [E78.00] 01/31/2017 06/14/2022 Sciatica of left side [M54.32] 06/27/2018 06/14/2022 DDD (degenerative disc disease), lumbar [M51.36]10/08/2018 Facet arthritis, degenerative, lumbar spine [M4*10/08/2018 06/14/2022 Radiculopathy of lumbar region [M54.16] 11/04/2018 06/14/2022 Dementia with beha (more content not included)... Normal [facility] CNOVon 05-29-2023 CNOV Office Visit (INTMWS ) CHRISTY FOFANA ([id number]) 1935 F Date Time Provider Department 05/29/23 1:00 PM MCKENZIE FUNK INTMWS During your visit today, we recorded the following information about you: Temperature Pulse Respiration Blood pressure 97.5 degrees 91/minute 18/minute 146/78 Weight 84.8 kg Mckenzie Funk, PRESS SET UP.MOLD MAKER 05/29/2023 3:06 PM Signed CC: Patient presents with: bilateral lower extremity edema HPI Christy Fofana is a 87 year old female, living in an assisted living facility, who presents today with her daughter, for chronic bilateral lower leg erythema and swelling with worsening over the past two weeks. The facility and family were concerned about a possible infection due to not only the worsening erythema and swelling but also blisters and seeping. She has a history of cellulitis and venous stasis dermatitis. Previously treated with Kenalog cream. Daughter is unsure how consistently the nursing staff has been applying this. Patient has also been prescribed compression socks and wraps in the past but is intolerant to both and refuses to wear. She denies sitting for long periods and describes being on her feet much of the day. Patient denies leg pain but are tender to the touch. No itching. Her activities of daily living have not been affected and she states, I am here because everyone else is worried about it. Review of Systems Constitutional: Negative for activity change, chills, fatigue and fever. Respiratory: Negative for cough, chest tightness and shortness of breath. Cardiovascular: Positive for leg swelling. Negative for chest pain and palpitations. PAST MEDICAL HISTORY Diagnosis Date Adrenal adenoma 03/04/2012 Anxiety state, unspecified 07/30/2008 DDD (degenerative disc disease), lumbar 10/08/2018 Dementia with behavioral disturbance (HCC) 06/14/2022 Diverticulosis of colon (without mention of hemorrhage) Dysmetabolic syndrome X 09/18/2006 Enthesopathy of hip region 09/18/2006 Eosinophilic colitis 06/10/2012 Essential hypertension, benign Facet arthritis, degenerative, lumbar spine 10/08/2018 Hyperlipidemia 08/06/2012 Hyperlipidemia LDL goal <130 12/16/2015 Hypertension 11/26/2017 Hypothyroidism, acquired Irritable bowel syndrome Left inguinal hernia 05/21/2016 Liver nodule 03/04/2012 Major depressive disorder with current active episode 06/14/2022 Mitral valve disorders 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 Osteoarthritis of knee 08/30/2010 Other and unspecified hyperlipidemia Other specified acquired hypothyroidism Paranoid delusion (HCC) 05/05/2022 Premature atrial beat Premature ventricular beat Radiculopathy of lumbar region 11/04/2018 Rotator cuff syndrome 04/05/2010 Shortness of breath Stasis dermatitis of both legs 08/01/2017 Venous (peripheral) insufficiency 10/29/2007 PAST SURGICAL HISTORY Procedure Laterality Date ANESTH OPEN/SURG ARTHRS TOTAL KNEE ARTHROPLASTY b/l knee replacement CHOLECYSTECTOMY sometime in the late 1979's COLONOSCOPY FLX DX W/COLLJ SPEC WHEN PFRMD 8 years ago Colonoscopy COLONOSCOPY FLX DX W/COLLJ SPEC WHEN PFRMD 05/14/2012 Colonoscopy COLONOSCOPY W/BIOPSY SINGLE/MULTIPLE 10/25/10 PAST SURGICAL HISTORY OF 1969 vaginal hysterectomy RPR 1ST INGUN HRNA AGE 7 YRS/> REDUCIBLE Left 05/30/2016 ALLERGIES Novacaine [Procaine], Augmentin [Amoxicillin-Pot Clavulanate], Clindamycin, Dilaudid [Hydromorphone (Bulk)], Doxycycline Monohydrate, Latex, Lipitor [Atorvastatin Calcium], Lisinopril, Morphine, Penicillins, Potassium, Sulfa (Sulfonamide Antibiotics), and Tetracycline MEDICATIONS spironolactone (ALDACTONE) 25 mg tablet Take 1 tablet by mouth once daily. simvastatin (ZOCOR) 20 mg tablet Take 1 tablet by mouth daily at bedtime. levothyroxine (SYNTHROID) 88 mcg tablet TAKE ONE TABLET BY MOUTH EVERY DAY ON EMPTY STOMACH aspirin, enteric coated (ECOTRIN LOW STRENGTH) 81 mg EC tablet Take 1 tablet by mouth once daily. multivitamin tablet Take 1 tablet by mouth once daily. rivastigmine (EXELON) 4.6 mg/24 hour patch Apply 1 Patch as directed once daily. Per psychiatry. QUEtiapine (SEROQUEL) 25 mg tablet Take 1 tablet by mouth two times a day. Per psychiatry. FLUoxetine (PROZAC) 20 mg capsule Take 1 capsule by mouth once daily. Per psychiatry. loperamide HCl (IMODIUM) 2 mg tab Take 2 mg by mouth as needed. triamcinolone acetonide (KENALOG) 0.1 % cream Apply 1 application to affected area twice daily. Apply sparingly to leg areas for rash/itching. acetaminophen (TYLENOL EXTRA STRENGTH) 500 mg tablet Take 1 tablet by mouth three times daily. FAMILY HISTORY Problem Relation Age of Onset Heart Father Cancer Father kidney Heart Sister mitral valve prolapse Cancer Maternal Aunt breast cancer Breast Cancer Paternal Aunt Cancer Paternal Grandfather stomach Diabetes Paternal Grandm (more content not included)... Normal [facility] 05-28-2023 CNPN Telephone (INTMWS) CHRISTY FOFANA ([id number]) 1935 F Date Time Provider Department 05/28/23 JOSÉ MIGUEL FRIAS INTWS During your visit today, we recorded the following information about you: Breanne Boggs RN 05/28/2023 11:08 AM Signed Rachale, nurse at [facility] calling and asking for provider to advise on their fax they sent to PCP office on 05/25/23. Rachael reports patient's bilateral lower extremities are much worse today. Questionable cellulitis. Please advise Rachael at [facility] at [phone]. Thank you. José Miguel Frias MD 05/28/2023 12:19 PM Signed Appointment in office if possible or video at the least. Report any fever. Elsy Rosales, MELCHOR 05/28/2023 1:13 PM Signed Maria Luisa at [facility] called and is notified of providers message and instructions. She voices understanding and requests VV at 420 pm with provider. She is going to call Pts daughter to see if she would like to bring Pt in to office. Elsy Rosales RN Allergies As of Date: 05/28/2023 Noted Allergy Reaction NOVACAINE (PROCAINE) 03/01/2011 1 - Mental Status Change Comments: Laughing and crying constantly- cannot tolerate any rohit AUGMENTIN (AMOXICILLIN-POT CLAVUL*10/24/2019 6 - Diarrhea CLINDAMYCIN 09/29/2008 6 - Diarrhea Comments: Claims made her nauseated and had diarrhea DILAUDID (HYDROMORPHONE (BULK)) 07/05/2005 DOXYCYCLINE MONOHYDRATE 11/08/2016 8 - GI Upset LATEX 03/16/2023 14 - Other: See Comments Comments: red, swelling, blisters LIPITOR (ATORVASTATIN CALCIUM) 06/07/2005 Comments: myalgia LISINOPRIL 07/28/2008 Comments: cough MORPHINE 12/30/2004 PENICILLINS 12/30/2004 POTASSIUM 09/19/2007 Comments: diarrhea SULFA (SULFONAMIDE ANTIBIOTICS) 12/07/2006 4 - Hives Comments: Pt states that she has an allergy to sulfa TETRACYCLINE 12/30/2004 Date Reviewed: 03/16/2023 Reviewed by: Maya Perales LPN - Fully Assessed Reason for Visit: Patient Update [1234] Prescriptions as of 05/28/2023 - spironolactone (ALDACTONE) 25 mg tablet Take 1 tablet by mouth once daily. - simvastatin (ZOCOR) 20 mg tablet Take 1 tablet by mouth daily at bedtime. - levothyroxine (SYNTHROID) 88 mcg tablet TAKE ONE TABLET BY MOUTH EVERY DAY ON EMPTY STOMACH - aspirin, enteric coated (ECOTRIN LOW STRENGTH) 81 mg EC tablet Take 1 tablet by mouth once daily. - multivitamin tablet Take 1 tablet by mouth once daily. - rivastigmine (EXELON) 4.6 mg/24 hour patch Apply 1 Patch as directed once daily. Per psychiatry. - QUEtiapine (SEROQUEL) 25 mg tablet Take 1 tablet by mouth two times a day. Per psychiatry. - FLUoxetine (PROZAC) 20 mg capsule Take 1 capsule by mouth once daily. Per psychiatry. - loperamide HCl (IMODIUM) 2 mg tab Take 2 mg by mouth as needed. - triamcinolone acetonide (KENALOG) 0.1 % cream Apply 1 application to affected area twice daily. Apply sparingly to leg areas for rash/itching. - acetaminophen (TYLENOL EXTRA STRENGTH) 500 mg tablet Take 1 tablet by mouth three times daily. 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] 02/12/2006 02/12/2013 Dysmetabolic syndrome X [E88.810] 09/18/2006 06/14/2022 Disorders of bursae and tendons in shoulder reg*09/18/2006 09/01/2014 Hypothyroidism, acquired [E03.9] Venous (peripheral) insufficiency [I87.2] 10/29/2007 Benign neoplasm of eyelid, including canthus [D*08/10/2008 02/12/2013 Other seborrheic dermatitis [L21.8] 08/10/2008 02/12/2013 Varicose veins of lower extremities with inflam*08/10/2008 09/01/2014 Irritable bowel syndrome [K58.9] 08/30/2010 06/14/2022 Osteoarthritis of knee [M17.9] 08/30/2010 06/14/2022 Ganglion of tendon [M67.40] 08/30/2010 09/01/2014 Melanocytic Nevus of trunk: mid lower back: irr*10/05/2010 09/01/2014 Atypical(?) nevus of mid lower back [D22.5] 10/05/2010 09/01/2014 Diverticulosis of colon (without mention of hem*10/25/2010 06/14/2022 Liver nodule [K76.89] 03/04/2012 06/14/2022 Adrenal adenoma [D35.00] 03/04/2012 06/14/2022 Eosinophilic colitis [K52.82] 06/10/2012 05/11/2021 Actinic skin damage [L57.8] 08/23/2012 09/01/2014 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 Normal [facility] Basophil percentageOrdered B y: Jhonathan Londono on 02-24-2023 Chloride [Moles/Vol] 110 mmol/L 98-107 [facility] Glucose [Mass/Vol] 80 mg/dL 74-106 [facility] Potassium [Moles/Vol] 3.4 mmol/L 3.5-5.1 [facility] Sodium [Moles/Vol] 143 mmol/L 136-145 [facility] Laboratory - Chemistry and C hemistry - challengeOrdered By: Jhonathan Londono on 02-24-2023 CO2 [Moles/Vol] 26.0 mmol/L 21.0-32.0 [facility] Urea nitrogen/Creatinine [Mass ratio] 61.0 mg/mg 10- [facility] No Panel InformationOrdered By: Jhonathan Londono on 02-24-2023 Estimated Creatinine Clearance Calc 46.10 ml/min [facility] Estimated GFR (MDRD) Amer 76 mL/min >60 [facility] Comment on above: GFR Calc Estimated GFR (MDRD) Non-Af Amer 63 mL/min >60 [facility] Comment on above: Non- GFR Calc Thyroid Stimulating Hormone (TSH) 0.60 uIU/mL 0.358-3.74 [facility] Serum or plasma calcium jalil urement (mass/volume)Ordered By: Jhonathan Londono on 02-24-2023 Calcium [Mass/Vol] 8.4 mg/dL 8.5-10.1 [facility] Serum or plasma creatinine m easurement (mass/volume)Ordered By: Jhonathan Londono on 02-24-2023 Creatinine [Mass/Vol] 0.90 mg/dL 0.55-1.02 [facility] Comment on above: The validity of the calculated GFR & GFRAA in patients over 70 years has not been determined. Clinical correlation is essential. Serum or plasma urea nitroge n measurement (mass/volume)Ordered By: Jhonathan Londono on 02-24-2023 Urea nitrogen [Mass/Vol] 55 mg/dL 7-18 [facility] Thin prep Papanicolaou smear with manual screeningOrdered By: Jhonathanmckinley Londono on 02-24-2023 Thin prep Papanicolaou smear with manual screening 7 5-15 [facility] Absolute lymphocyte countOrd ered By: De Quiroz on 02-23-2023 Lymphocytes Auto (Unsp spec) [#/Vol] 1.15 10*3/uL 0.83-4.51 [facility] Basophil percentageOrdered B y: De Quiroz on 02-23-2023 Basophil percentage 0-5 SEEN /hpf 0-5 [facility] Basophils/100 WBC (Bld) 0.3 % 0-1 [facility] Bilirubin [Mass/Vol] 0.80 mg/dL 0.20-1.00 [facility] Comment on above: For patients on eltr ombopag therapy, use of Dimension [place] TBIL is not recommended. Eosinophils/100 WBC (Bld) 2.5 % 0-5 [facility] Neutrophils (Bld) [#/Vol] 4.4 10*3/uL 2.0-7.7 [facility] Neutrophils/100 WBC (Bld) 69.0 % 47-70 [facility] Protein [Mass/Vol] 6.8 g/dL 6.4-8.2 [facility] WBC (Bld) [#/Vol] 6.4 10*3/uL 4.4-11.0 [facility] Bilirubin Test strip Ql (U)O rdered By: De Quiroz on 02-23-2023 Bilirubin Ql (U) Negative Negative [facility] Blood erythrocytes count (nu mber/volume)Ordered By: De Quiorz on 02-23-2023 RBC (Bld) [#/Vol] 3.84 10*6/uL 4.2-5.4 [facility] Blood hemoglobin measurement (mass/volume)Ordered By: De Quiroz on 02-23-2023 Hemoglobin (Bld) [Mass/Vol] 11.6 g/dL 12.0-15.0 [facility] Blood lymphocytes/100 leukoc ytesOrdered By: De Quiroz on 02-23-2023 Lymphocytes/100 WBC (Bld) 18.1 % 19-41 [facility] Blood monocytes/100 leukocyt esOrdered By: De Quiroz on 02-23-2023 Monocytes/100 WBC (Bld) 9.6 % 0-10 [facility] Blood platelet mean volumeOr dered By: De Quiroz on 02-23-2023 Platelet mean volume (Bld) [Entitic vol] 10.1 fL 6.2-12.0 [facility] Determination of erythrocyte mean corpuscular volume (MCV)Ordered By: De Quiroz on 02-23-2023 MCV (RBC) [Entitic vol] 90.9 fL 81-99 [facility] Hematocrit Auto (Bld) [Volum e fraction]Ordered By: De Quiroz on 02-23-2023 Hematocrit (Bld) [Volume fraction] 34.9 % 37-47 [facility] Influenza virus A and B and SARS-CoV-2 (COVID-19) Ag panel - Upper respiratory specimOrdered By: De Quiroz on 02-23-2023 SARS-CoV-2 (COVID-19) RNA YOSHI+probe Ql (Resp) [facility] Ketones Test strip Ql (U)Ord ered By: De Quiroz on 02-23-2023 Ketones Ql (U) Negative Negative [facility] Laboratory - Chemistry and C hemistry - challengeOrdered By: De Quiroz on 02-23-2023 ALP [Catalytic activity/Vol] 86 U/L 45-117 [facility] ALT [Catalytic activity/Vol] 26 U/L 13-56 [facility] Globulin (S) [Mass/Vol] 3.1 g/dL 2.2-4.2 [facility] Laboratory - Chemistry and C hemistry - challengeOrdered By: Jhonathan Londono on 02-23-2023 Magnesium [Mass/Vol] 2.3 mg/dL 1.6-2.6 [facility] Laboratory - Hematology and Cell countsOrdered By: De Quiroz on 02-23-2023 Erythrocyte distribution width (RBC) [Entitic vol] 41.9 fL 35.1-43.9 [facility] Erythrocyte distribution width (RBC) [Ratio] 12.6 % 11.6-14.6 [facility] Immature granulocytes/100 WBC (Bld) 0.500 % 0.0-0.9 [facility] Comment on above: IG% - Immature Granu locytes (promyelocytes, myelocytes and metamyelocytes) > 1% indicates that a LEFT SHIFT is Present. MCH (RBC) [Entitic mass] 30.2 pg 27.0-32.0 [facility] Nucleated RBC/100 WBC (Bld) [Ratio] 0 % 0-5 [facility] MCHC Auto (RBC) [Mass/Vol]Or dered By: De Quiroz on 02-23-2023 MCHC (RBC) [Mass/Vol] 33.2 g/dL 32-36 [facility] Mucus LM Ql (Urine sed)Order ed By: De Quiroz on 02-23-2023 Mucus Ql (Urine sed) 0 SEEN /hpf [facility] Nitrite Test strip Ql (U)Ord ered By: De Quiroz on 02-23-2023 Nitrite Ql (U) Negative Negative [facility] Platelets bldOrdered By: Juice Quiroz on 02-23-2023 Platelets (Bld) [#/Vol] 198 10*3/uL 150-450 [facility] Protein Test strip Ql (U)Ord ered By: De Quiroz on 02-23-2023 Protein Ql (U) Negative Negative [facility] Serum or plasma albumin jalil urement (mass/volume)Ordered By: De Quiroz on 02-23-2023 Albumin [Mass/Vol] 3.7 g/dL 3.2-5.0 [facility] Serum or plasma albumin/glob ulin mass ratioOrdered By: De Quiroz on 02-23-2023 Albumin/Globulin [Mass ratio] 1.2 {ratio} 0.9-2.4 [facility] Squamous epithelial cells de tection in urine sediment by light microscopyOrdered By: De Quiroz on 02-23-2023 Epithelial cells.squamous LM Ql (Urine sed) 0-5 SEEN /hpf 5-10 [facility] Thin prep Papanicolaou smear with manual screeningOrdered By: De Quiroz on 02-23-2023 Thin prep Papanicolaou smear with manual screening 31 U/L 15-37 [facility] Urine blood detectionOrdered By: De Quiroz on 02-23-2023 RBC Ql (U) Negative Negative [facility] RBC Ql (U) 0 SEEN /hpf 0-5 [facility] Urine clarityOrdered By: Juice Quiroz on 02-23-2023 Clarity (U) Clear Clear [facility] Urine color determinationOrd ered By: De Quiroz on 02-23-2023 Color (U) Yellow Yellow [facility] Urine glucose detectionOrder ed By: De Quiroz on 02-23-2023 Glucose Ql (U) Normal mg/dl Normal [facility] Urine leukocyte esterase det ection by dipstickOrdered By: De Quiroz on 02-23-2023 Leukocyte esterase Test strip Ql (U) 25 /ul Negative [facility] Urine pHOrdered By: De enamorado on 02-23-2023 pH (U) 5.0 [pH] 5.0 - 8.0 [facility] Urine sediment bacteria coun t by microscopy (number/high power field)Ordered By: De Quiroz on 02-23-2023 Bacteria LM.HPF (Urine sed) [#/Area] 0 /[HPF] None Seen [facility] Urine specific gravity measu rementOrdered By: De Quiroz on 02-23-2023 Specific gravity (U) [Rel density] 1.015 1.002-1.03 0 [facility] Urobilinogen Auto test strip Ql (U)Ordered By: De Quiroz on 02-23-2023 Urobilinogen Ql (U) Normal mg/dl Normal [facility] ECG COMPLETEon 12-25-2022 Atrial Rate 59 BPM [facility] Calculated P [place] 97 degrees [facility] Calculated R [place] -47 degrees [facility] Calculated T [place] 2 degrees [facility] P-R Interval 214 ms [facility] QRS Duration 122 ms [facility] QT Interval 506 ms [facility] QTC Calculation (Bazett) 500 ms [facility] Ventricular Rate 59 BPM [facility] Atrial Rate 53 BPM [facility] Calculated P [place] 101 degrees [facility] Calculated R [place] -48 degrees [facility] Calculated T [place] -10 degrees [facility] P-R Interval 218 ms [facility] QRS Duration 118 ms [facility] QT Interval 496 ms [facility] QTC Calculation (Bazett) 465 ms [facility] Ventricular Rate 53 BPM [facility] XR Foot - right AP and Later al and obliqueon 11-03-2022 IMPRESSION: NO ACUTE FRACTURE IDENTIFIED SEVERE FIRST MTP JOINT DEGENERATIVE CHANGE OTHER FINDINGS DESCRIBED [facility] Therapist: REYNA Transcribe Date/Time: Nov 03 2022 9:04A Dictated by : TAZ MURILLO MD This examination was interpreted and the report reviewed and electronically signed by: TAZ MURILLO MD on Nov 03 2022 9:07AM [facility] DIVISION OF RADIOLOGY * * *Final Report* * * DATE OF EXAM: Oct 31 2022 4:35PM WOX [id number] - XR FOOT 3V AP/LAT/OBL RT / PROCEDURE REASON: Injury of right great toe, initial encounter * * * * Physician Interpretation * * * * HISTORY: Injury of right great toe, initial encounter TECHNIQUE: 3 views right foot COMPARISON: None. RESULT: There is no acute fracture identified. Lucency on the oblique view overlying the great toe distal phalanx is felt to be from the nail bed. The proximal aspect of the distal phalanx is suboptimally evaluated on the lateral view because of bony overlap with the toes. There is hallux valgus and severe first MTP joint space narrowing with small osteophytes from degenerative change. Suboptimal evaluation of the IP joints of the toes and the middle and distal phalanges of the toes because of flexion of the toes. There may be some bony bridging across the small toe proximal phalanx unless this appearance is just on account of positioning. There is chronic periostitis along the second through fourth metatarsal shafts. Small retrocalcaneal and plantar calcaneal spurs. There is some generalized soft tissue swelling about the visualized ankle and dorsum of the foot. DIVISION OF RADIOLOGY Provider, [facility] - 11/03/2022 * * *Final Report* * * DATE OF EXAM: Oct 31 2022 4:35PM WOX 5337 - XR FOOT 3V AP/LAT/OBL RT / PROCEDURE REASON: Injury of right great toe, initial encounter * * * * Physician Interpretation * * * * HISTORY: Injury of right great toe, initial encounter TECHNIQUE: 3 views right foot COMPARISON: None. RESULT: There is no acute fracture identified. Lucency on the oblique view overlying the great toe distal phalanx is felt to be from the nail bed. The proximal aspect of the distal phalanx is suboptimally evaluated on the lateral view because of bony overlap with the toes. There is hallux valgus and severe first MTP joint space narrowing with small osteophytes from degenerative change. Suboptimal evaluation of the IP joints of the toes and the middle and distal phalanges of the toes because of flexion of the toes. There may be some bony bridging across the small toe proximal phalanx unless this appearance is just on account of positioning. There is chronic periostitis along the second through fourth metatarsal shafts. Small retrocalcaneal and plantar calcaneal spurs. There is some generalized soft tissue swelling about the visualized ankle and dorsum of the foot. IMPRESSION IMPRESSION: NO ACUTE FRACTURE IDENTIFIED SEVERE FIRST MTP JOINT DEGENERATIVE CHANGE OTHER FINDINGS DESCRIBED Lang Path Therapist: PSCB Transcribe Date/Time: Nov 03 2022 9:04A Dictated by : TAZ MURILLO MD This examination was interpreted and the report reviewed and electronically signed by: TAZ MURILLO MD on Nov 03 2022 9:07AM EST [facility] XR Foot - right AP and Later al and obliqueOrdered By: Ccf Provider on 11-03-2022 [facility] XR Foot - right AP and Later al and obliqueon 10-31-2022 Radiology Study observation (narrative) [facility] Basophil percentageOrdered B y: José Miguel Frias on 10-18-2022 Bilirubin [Mass/Vol] 0.60 mg/dL 0.20-1.00 [facility] Comment on above: For patients on eltr ombopag therapy, use of Dimension [place] TBIL is not recommended. Chloride [Moles/Vol] 103 mmol/L 98-107 [facility] Cholesterol [Mass/Vol] 164 mg/dL <200 [facility] Comment on above: <200 mg/dL Desirable 200-240 mg/dL Borderline >240 mg/dL High Risk Glucose [Mass/Vol] 88 mg/dL 74-106 [facility] Potassium [Moles/Vol] 3.8 mmol/L 3.5-5.1 [facility] Protein [Mass/Vol] 6.9 g/dL 6.4-8.2 [facility] Sodium [Moles/Vol] 138 mmol/L 136-145 [facility] Triglyceride [Mass/Vol] 100 mg/dL <199 [facility] Comment on above: The drugs N-Acetylcy steine and Metamizole may falsely depress this assay.Serum Triglycerides Reference Interval Normal <150 mg/dL Borderline high 150 - 199 mg/dL High 200 - 499 mg/dL Very High > or = 500 mg/dL WBC (Bld) [#/Vol] 4.7 10*3/uL 4.4-11.0 [facility] Blood erythrocytes count (nu mber/volume)Ordered By: José Miguel Frias on 10-18-2022 RBC (Bld) [#/Vol] 4.51 10*6/uL 4.2-5.4 [facility] Blood hemoglobin measurement (mass/volume)Ordered By: José Miguel Frias on 10-18-2022 Hemoglobin (Bld) [Mass/Vol] 13.0 g/dL 12.0-15.0 [facility] Blood platelet mean volumeOr dered By: José Miguel Frias on 10-18-2022 Platelet mean volume (Bld) [Entitic vol] 9.5 fL 6.2-12.0 [facility] Determination of erythrocyte mean corpuscular volume (MCV)Ordered By: José Miguel Frias on 10-18-2022 MCV (RBC) [Entitic vol] 89.4 fL 81-99 [facility] Hematocrit Auto (Bld) [Volum e fraction]Ordered By: José Miguel Frias on 10-18-2022 Hematocrit (Bld) [Volume fraction] 40.3 % 37-47 [facility] Laboratory - Chemistry and C hemistry - challengeOrdered By: José Miguel Frias on 10-18-2022 ALP [Catalytic activity/Vol] 75 U/L 45-117 [facility] ALT [Catalytic activity/Vol] 23 U/L 13-56 [facility] CO2 [Moles/Vol] 29.0 mmol/L 21.0-32.0 [facility] Globulin (S) [Mass/Vol] 3.7 g/dL 2.2-4.2 [facility] Urea nitrogen/Creatinine [Mass ratio] 40.1 mg/mg 10-20 [facility] Laboratory - Hematology and Cell countsOrdered By: José Miguel Frias on 10-18-2022 Erythrocyte distribution width (RBC) [Entitic vol] 42.8 fL 35.1-43.9 [facility] Erythrocyte distribution width (RBC) [Ratio] 13.1 % 11.6-14.6 [facility] MCH (RBC) [Entitic mass] 28.8 pg 27.0-32.0 [facility] MCHC Auto (RBC) [Mass/Vol]Or dered By: José Miguel Frias on 10-18-2022 MCHC (RBC) [Mass/Vol] 32.3 g/dL 32-36 [facility] No Panel InformationOrdered By: José Miguel Frias on 10-18-2022 Estimated GFR (MDRD) Amer 68 mL/min >60 [facility] Comment on above: GFR Calc Estimated GFR (MDRD) Non-Af Amer 56 mL/min >60 [facility] Comment on above: Non- GFR Calc Thyroid Stimulating Hormone (TSH) 0.31 uIU/mL 0.358-3.74 [facility] Platelets bldOrdered By: Kris Frias on 10-18-2022 Platelets (Bld) [#/Vol] 202 10*3/uL 150-450 [facility] Serum or plasma albumin jalil urement (mass/volume)Ordered By: José Miguel Frias on 10-18-2022 Albumin [Mass/Vol] 3.2 g/dL 3.2-5.0 [facility] Serum or plasma albumin/glob ulin mass ratioOrdered By: José Miguel Frias on 10-18-2022 Albumin/Globulin [Mass ratio] 0.9 {ratio} 0.9-2.4 [facility] Serum or plasma calcium jalil urement (mass/volume)Ordered By: José Miguel Frias on 10-18-2022 Calcium [Mass/Vol] 9.2 mg/dL 8.5-10.1 [facility] Serum or plasma cholesterol in HDL measurement (mass/volume)Ordered By: José Miguel Frias on 10-18-2022 Cholesterol in HDL [Mass/Vol] 80 mg/dL >40 [facility] Comment on above: The drugs N-Acetylcy steine and Metamizole may falsely depress this assay. Reference Range HDL <40 mg/dL Low HDL Cholesterol HDL >or= 60 mg/dL High HDL Cholesterol Serum or plasma cholesterol in VLDL measurement (mass/volume)Ordered By: José Miguel Frias on 10-18-2022 Cholesterol in VLDL [Mass/Vol] 20 mg/dL 5-40 [facility] Serum or plasma creatinine m easurement (mass/volume)Ordered By: José Miguel Frias on 10-18-2022 Creatinine [Mass/Vol] 1.00 mg/dL 0.55-1.02 [facility] Comment on above: The validity of the calculated GFR & GFRAA in patients over 70 years has not been determined. Clinical correlation is essential. Serum or plasma low density lipoprotein (LDL) cholesterol measurement (mass/volume)Ordered By: José Miguel Frias on 10-18-2022 Cholesterol in LDL [Mass/Vol] 64 mg/dL 0-130 [facility] Serum or plasma urea nitroge n measurement (mass/volume)Ordered By: José Miguel Frias on 10-18-2022 Urea nitrogen [Mass/Vol] 40 mg/dL 7-18 [facility] Thin prep Papanicolaou smear with manual screeningOrdered By: José Miguel Frias on 10-18-2022 Thin prep Papanicolaou smear with manual screening 16 U/L 15-37 [facility] Thin prep Papanicolaou smear with manual screening 6 5-15 [facility] Culture, urineOrdered By: Vi mira Frias on 08-27-2022 Bacteria identified Cx Nom (U) Positive [facility] Basophil percentageOrdered B y: José Miguel Frias on 08-25-2022 Basophil percentage 0 SEEN /hpf 0-5 [facility] Bilirubin Test strip Ql (U)O rdered By: José Miguel Frias on 08-25-2022 Bilirubin Ql (U) Negative Negative [facility] Ketones Test strip Ql (U)Ord ered By: José Miguel Frias on 08-25-2022 Ketones Ql (U) Negative Negative [facility] Mucus LM Ql (Urine sed)Order ed By: José Miguel Frias on 08-25-2022 Mucus Ql (Urine sed) 0 SEEN /hpf [facility] Nitrite Test strip Ql (U)Ord ered By: José Miguel Frias on 08-25-2022 Nitrite Ql (U) Negative Negative [facility] Protein Test strip Ql (U)Ord ered By: José Miguel Frias on 08-25-2022 Protein Ql (U) Negative Negative [facility] Squamous epithelial cells de tection in urine sediment by light microscopyOrdered By: José Miguel Frias on 08-25-2022 Epithelial cells.squamous LM Ql (Urine sed) 0 SEEN /hpf 5-10 [facility] Urine blood detectionOrdered By: José Miguel Frias on 08-25-2022 RBC Ql (U) Negative Negative [facility] RBC Ql (U) 0 SEEN /hpf 0-5 [facility] Urine clarityOrdered By: Kris Frias on 08-25-2022 Clarity (U) Clear Clear [facility] Urine color determinationOrd ered By: José Miguel Frias on 08-25-2022 Color (U) Yellow Yellow [facility] Urine glucose detectionOrder ed By: José Miguel Frias on 08-25-2022 Glucose Ql (U) Normal mg/dl Normal [facility] Urine leukocyte esterase det ection by dipstickOrdered By: José Miguel Frias on 08-25-2022 Leukocyte esterase Test strip Ql (U) Negative Negative [facility] Urine pHOrdered By: José Miguel odell on 08-25-2022 pH (U) 6.0 [pH] 5.0 - 8.0 [facility] Urine sediment bacteria coun t by microscopy (number/high power field)Ordered By: José Miguel Frias on 08-25-2022 Bacteria LM.HPF (Urine sed) [#/Area] 0 /[HPF] None Seen [facility] Urine specific gravity measu rementOrdered By: José Miguel Frias on 08-25-2022 Specific gravity (U) [Rel density] 1.010 1.002-1.03 0 [facility] Urobilinogen Auto test strip Ql (U)Ordered By: José Miguel Frias on 08-25-2022 Urobilinogen Ql (U) Normal mg/dl Normal [facility] Qualitative QuantiFERON-TB g old in tube testOrdered By: José Miguel Frias on 07-28-2022 M. tuberculosis tuberculin stim IFN-g Ql (Bld) 0.66 IU/mL . [facility] Thin prep Papanicolaou smear with manual screeningOrdered By: José Miguel Frias on 07-28-2022 Thin prep Papanicolaou smear with manual screening Comment . [facility] Comment on above: QuantiFERON-TB Gold Plus is a qualitative indirect test forM tuberculosis infection (including disease) and isintended for use in conjunction with risk assessment,radiography, and other medical and diagnostic evaluations.The QuantiFERON-TB Gold Plus result is determined bysubtracting the Nil value from either TB antigen (Ag)value. The Mitogen tube serves as a control for the test. Thin prep Papanicolaou smear with manual screening 0.63 IU/mL . [facility] Thin prep Papanicolaou smear with manual screening 0.50 IU/mL . [facility] Thin prep Papanicolaou smear with manual screening > 10.00 IU/mL . [facility] Thin prep Papanicolaou smear with manual screening Negative Negative [facility] Comment on above: No response to M tub erculosis antigens detected.Infection with M tuberculosis is unlikely, but high riskindividuals should be considered for additional testing(ATS/IDSA/CDC Clinical Practice Guidelines, 2017). Thereference range is an Antigen minus Nil result of <0.35IU/mL.The specimen received for QuantiFERON testing was incubatedby the ordering institution. Specific procedures outlinedin our Directory of Services and in the package insert forthe QuantiFERON Gold (In Tube) test must be followed toenable for proper stimulation of cells for the productionof interferon gamma. Chemiluminescence immunoassaymethodologyPerformed at: [facility] [address] [id number] Director: Kingsley He PhD, Phone: [phone] Culture, urineOrdered By: Christine Frias on 07-20-2022 Bacteria identified Cx Nom (U) Positive [facility] Basophil percentageOrdered B y: José Miguel Frias on 07-18-2022 Basophil percentage 0 SEEN /hpf 0-5 [facility] Bilirubin Test strip Ql (U)O rdered By: José Miguel Frias on 07-18-2022 Bilirubin Ql (U) Negative Negative [facility] Ketones Test strip Ql (U)Ord ered By: José Miguel Frias on 07-18-2022 Ketones Ql (U) Negative Negative [facility] Mucus LM Ql (Urine sed)Order ed By: José Miguel Frias on 07-18-2022 Mucus Ql (Urine sed) 0 SEEN /hpf [facility] Nitrite Test strip Ql (U)Ord ered By: José Miguel Frias on 07-18-2022 Nitrite Ql (U) Negative Negative [facility] Protein Test strip Ql (U)Ord ered By: José Miguel Frias on 07-18-2022 Protein Ql (U) Negative Negative [facility] Squamous epithelial cells de tection in urine sediment by light microscopyOrdered By: José Miguel Frias on 07-18-2022 Epithelial cells.squamous LM Ql (Urine sed) 0-5 SEEN /hpf 5-10 [facility] Urine blood detectionOrdered By: José Miguel Frias on 07-18-2022 RBC Ql (U) Negative Negative [facility] RBC Ql (U) 0 SEEN /hpf 0-5 [facility] Urine clarityOrdered By: Kris Frias on 07-18-2022 Clarity (U) Sl. Cloudy Clear [facility] Urine color determinationOrd ered By: José Miguel Frias on 07-18-2022 Color (U) Yellow Yellow [facility] Urine glucose detectionOrder ed By: José Miguel Frias on 07-18-2022 Glucose Ql (U) Normal mg/dl Normal [facility] Urine leukocyte esterase det ection by dipstickOrdered By: José Miguel Frias on 07-18-2022 Leukocyte esterase Test strip Ql (U) Negative Negative [facility] Urine pHOrdered By: José Miguel odell on 07-18-2022 pH (U) 6.5 [pH] 5.0 - 8.0 [facility] Urine sediment bacteria coun t by microscopy (number/high power field)Ordered By: José Miguel Frias on 07-18-2022 Bacteria LM.HPF (Urine sed) [#/Area] 0 /[HPF] None Seen [facility] Urine specific gravity measu rementOrdered By: José Miguel Frias on 07-18-2022 Specific gravity (U) [Rel density] 1.015 1.002-1.03 0 [facility] Urobilinogen Auto test strip Ql (U)Ordered By: José Miguel Frias on 07-18-2022 Urobilinogen Ql (U) Normal mg/dl Normal [facility] Basophil percentageOrdered B y: Mary Rob on 05-17-2022 Bilirubin [Mass/Vol] 0.50 mg/dL 0.20-1.00 [facility] Comment on above: For patients on eltr ombopag therapy, use of Dimension [place] TBIL is not recommended. Chloride [Moles/Vol] 105 mmol/L 98-107 [facility] Cholesterol [Mass/Vol] 137 mg/dL <200 [facility] Comment on above: <200 mg/dL Desirable 200-240 mg/dL Borderline >240 mg/dL High Risk Glucose [Mass/Vol] 81 mg/dL 74-106 [facility] Potassium [Moles/Vol] 3.8 mmol/L 3.5-5.1 [facility] Protein [Mass/Vol] 5.6 g/dL 6.4-8.2 [facility] Sodium [Moles/Vol] 140 mmol/L 136-145 [facility] Triglyceride [Mass/Vol] 75 mg/dL <199 [facility] Comment on above: The drugs N-Acetylcy steine and Metamizole may falsely depress this assay.Serum Triglycerides Reference Interval Normal <150 mg/dL Borderline high 150 - 199 mg/dL High 200 - 499 mg/dL Very High > or = 500 mg/dL WBC (Bld) [#/Vol] 5.5 10*3/uL 4.4-11.0 [facility] Blood erythrocytes count (nu mber/volume)Ordered By: Mary Rob on 05-17-2022 RBC (Bld) [#/Vol] 4.68 10*6/uL 4.2-5.4 [facility] Blood hemoglobin measurement (mass/volume)Ordered By: Mary Rob on 05-17-2022 Hemoglobin (Bld) [Mass/Vol] 13.4 g/dL 12.0-15.0 [facility] Blood platelet mean volumeOr dered By: Mary Rob on 05-17-2022 Platelet mean volume (Bld) [Entitic vol] 10.7 fL 6.2-12.0 [facility] Determination of erythrocyte mean corpuscular volume (MCV)Ordered By: Mary Rob on 05-17-2022 MCV (RBC) [Entitic vol] 90.0 fL 81-99 [facility] Hematocrit Auto (Bld) [Volum e fraction]Ordered By: Mary Rob on 05-17-2022 Hematocrit (Bld) [Volume fraction] 42.1 % 37-47 [facility] Laboratory - Chemistry and C hemistry - challengeOrdered By: Mary Rob on 05-17-2022 ALP [Catalytic activity/Vol] 75 U/L 45-117 [facility] ALT [Catalytic activity/Vol] 22 U/L 13-56 [facility] CO2 [Moles/Vol] 29.0 mmol/L 21.0-32.0 [facility] Globulin (S) [Mass/Vol] 3.0 g/dL 2.2-4.2 [facility] Urea nitrogen/Creatinine [Mass ratio] 38.7 mg/mg 10-20 [facility] Laboratory - Hematology and Cell countsOrdered By: Mary Rob on 05-17-2022 Erythrocyte distribution width (RBC) [Entitic vol] 44.4 fL 35.1-43.9 [facility] Erythrocyte distribution width (RBC) [Ratio] 13.5 % 11.6-14.6 [facility] MCH (RBC) [Entitic mass] 28.6 pg 27.0-32.0 [facility] MCHC Auto (RBC) [Mass/Vol]Or dered By: Mary Rob on 05-17-2022 MCHC (RBC) [Mass/Vol] 31.8 g/dL 32-36 [facility] No Panel InformationOrdered By: Mary Rob on 05-17-2022 Estimated GFR (MDRD) Amer 103 mL/min >60 [facility] Comment on above: GFR Calc Estimated GFR (MDRD) Non-Af Amer 85 mL/min >60 [facility] Comment on above: Non- GFR Calc Thyroid Stimulating Hormone (TSH) 0.78 uIU/mL 0.358-3.74 [facility] Platelets bldOrdered By: Mary Rob on 05-17-2022 Platelets (Bld) [#/Vol] 185 10*3/uL 150-450 [facility] Serum or plasma albumin jalil urement (mass/volume)Ordered By: Mary Rob on 05-17-2022 Albumin [Mass/Vol] 2.6 g/dL 3.2-5.0 [facility] Serum or plasma albumin/glob ulin mass ratioOrdered By: Mary Rob on 05-17-2022 Albumin/Globulin [Mass ratio] 0.9 {ratio} 0.9-2.4 [facility] Serum or plasma calcium jalil urement (mass/volume)Ordered By: Mary Rob on 05-17-2022 Calcium [Mass/Vol] 8.4 mg/dL 8.5-10.1 [facility] Serum or plasma cholesterol in HDL measurement (mass/volume)Ordered By: Mary Rob on 05-17-2022 Cholesterol in HDL [Mass/Vol] 67 mg/dL >40 [facility] Comment on above: The drugs N-Acetylcy steine and Metamizole may falsely depress this assay. Reference Range HDL <40 mg/dL Low HDL Cholesterol HDL >or= 60 mg/dL High HDL Cholesterol Serum or plasma cholesterol in VLDL measurement (mass/volume)Ordered By: Mary Rob on 05-17-2022 Cholesterol in VLDL [Mass/Vol] 15 mg/dL 5-40 [facility] Serum or plasma creatinine m easurement (mass/volume)Ordered By: Mary Rob on 05-17-2022 Creatinine [Mass/Vol] 0.70 mg/dL 0.55-1.02 [facility] Comment on above: The validity of the calculated GFR & GFRAA in patients over 70 years has not been determined. Clinical correlation is essential. Serum or plasma low density lipoprotein (LDL) cholesterol measurement (mass/volume)Ordered By: Mary Rob on 05-17-2022 Cholesterol in LDL [Mass/Vol] 55 mg/dL 0-130 [facility] Serum or plasma urea nitroge n measurement (mass/volume)Ordered By: Mary Rob on 05-17-2022 Urea nitrogen [Mass/Vol] 27 mg/dL 7-18 [facility] Thin prep Papanicolaou smear with manual screeningOrdered By: Mary Rob on 05-17-2022 Thin prep Papanicolaou smear with manual screening 13 U/L 15-37 [facility] Thin prep Papanicolaou smear with manual screening 6 5-15 [facility] Basophil percentageOrdered B y: Dr. Lo on 04-27-2022 Basophil percentage 0-5 SEEN /hpf 0-5 [facility] Bilirubin Test strip Ql (U)O rdered By: Dr. Lo on 04-27-2022 Bilirubin Ql (U) Negative Negative [facility] Ketones Test strip Ql (U)Ord ered By: Dr. Lo on 04-27-2022 Ketones Ql (U) 5 mg/dl Negative [facility] Laboratory - Drug toxicology Ordered By: Dr. Lo on 04-27-2022 Amphetamines Ql (U) Negative <1000 ng/mL [facility] Benzodiazepines Ql (U) Negative < 200 ng/mL [facility] Cannabinoids Screen Ql (U) Negative < 50 ng/mL [facility] Cocaine Ql (U) Negative < 300 ng/mL [facility] Opiates Ql (U) Negative < 300 ng/mL [facility] Mucus LM Ql (Urine sed)Order ed By: Dr. Lo on 04-27-2022 Mucus Ql (Urine sed) 2+ /hpf [facility] Nitrite Test strip Ql (U)Ord ered By: Dr. Lo on 04-27-2022 Nitrite Ql (U) Negative Negative [facility] No Panel InformationOrdered By: Dr. Lo on 04-27-2022 MDMA (Ecstasy) Screen Negative < 500 ng/mL [facility] Urine Barbiturates Screen Negative < 200 ng/mL [facility] Urine Drug Screen Comment [facility] Comment on above: CONFIRMATORY TESTING FOR ALL POSITIVE URINE DRUG SCREENRESULTS WILL ONLY BE SENT OUT UPON PHYSICIAN ORDER. VISTA Urine Drug Screen methods provide only preliminaryanalytical test results. A more specific alternate chemicalmethod must be used in order to obtain a confirmedanalytical result. Gas chromatography/mass spectrometery(GC/MS) is the preferred confirmatory method. Clinicalconsideration and professional judgement should be appliedto any drug of abuse test result, particularly whenpreliminary positive results are used. URINE TCA TESTING MUST BE ORDERED SEPARATELY. USE TESTMNEMONIC: [facility] Urine Methadone Screen Negative < 300 ng/mL [facility] Protein Test strip Ql (U)Ord ered By: Dr. Lo on 04-27-2022 Protein Ql (U) 15 mg/dl Negative [facility] Squamous epithelial cells de tection in urine sediment by light microscopyOrdered By: Dr. Lo on 04-27-2022 Epithelial cells.squamous LM Ql (Urine sed) 0 SEEN /hpf 5-10 [facility] Urine blood detectionOrdered By: Dr. Lo on 04-27-2022 RBC Ql (U) Negative Negative [facility] RBC Ql (U) 0 SEEN /hpf 0-5 [facility] Urine clarityOrdered By: Dr. Lo on 04-27-2022 Clarity (U) Clear Clear [facility] Urine color determinationOrd ered By: Dr. Lo on 04-27-2022 Color (U) Yellow Yellow [facility] Urine glucose detectionOrder ed By: Dr. Lo on 04-27-2022 Glucose Ql (U) Normal mg/dl Normal [facility] Urine leukocyte esterase det ection by dipstickOrdered By: Dr. Lo on 04-27-2022 Leukocyte esterase Test strip Ql (U) 25 /ul Negative [facility] Urine pHOrdered By: Dr. Claudia jane on 04-27-2022 pH (U) 6.5 [pH] 5.0 - 8.0 [facility] Urine phencyclidine (PCP) de tectionOrdered By: Dr. Lo on 04-27-2022 Phencyclidine Ql (U) Negative < 25 ng/mL [facility] Urine sediment bacteria coun t by microscopy (number/high power field)Ordered By: Dr. Lo on 04-27-2022 Bacteria LM.HPF (Urine sed) [#/Area] 1 /[HPF] None Seen [facility] Urine specific gravity measu rementOrdered By: Dr. Lo on 04-27-2022 Specific gravity (U) [Rel density] 1.020 1.002-1.03 0 [facility] Urobilinogen Auto test strip Ql (U)Ordered By: Dr. Lo on 04-27-2022 Urobilinogen Ql (U) 1 mg/dl Normal [facility] Absolute lymphocyte countOrd ered By: Dr. Lo on 04-26-2022 Lymphocytes Auto (Unsp spec) [#/Vol] 1.37 10*3/uL 0.83-4.51 [facility] Basophil percentageOrdered B y: Dr. Lo on 04-26-2022 Basophils/100 WBC (Bld) 0.5 % 0-1 [facility] Bilirubin [Mass/Vol] 1.00 mg/dL 0.20-1.00 [facility] Comment on above: For patients on eltr ombopag therapy, use of Dimension [place] TBIL is not recommended. Chloride [Moles/Vol] 105 mmol/L 98-107 [facility] Eosinophils/100 WBC (Bld) 1.2 % 0-5 [facility] Glucose [Mass/Vol] 104 mg/dL 74-106 [facility] Comment on above: Fasting Glucose resu lt from 100 to 125 mg/dL suggests IMPAIRED HOMEOSTASIS per A.D.A. criteria. Neutrophils (Bld) [#/Vol] 3.5 10*3/uL 2.0-7.7 [facility] Neutrophils/100 WBC (Bld) 62.0 % 47-70 [facility] Potassium [Moles/Vol] 3.0 mmol/L 3.5-5.1 [facility] Protein [Mass/Vol] 6.4 g/dL 6.4-8.2 [facility] Sodium [Moles/Vol] 139 mmol/L 136-145 [facility] WBC (Bld) [#/Vol] 5.7 10*3/uL 4.4-11.0 [facility] Blood erythrocytes count (nu mber/volume)Ordered By: Dr. Lo on 04-26-2022 RBC (Bld) [#/Vol] 5.09 10*6/uL 4.2-5.4 [facility] Blood hemoglobin measurement (mass/volume)Ordered By: Dr. Lo on 04-26-2022 Hemoglobin (Bld) [Mass/Vol] 14.6 g/dL 12.0-15.0 [facility] Blood lymphocytes/100 leukoc ytesOrdered By: Dr. Lo on 04-26-2022 Lymphocytes/100 WBC (Bld) 24.1 % 19-41 [facility] Blood monocytes/100 leukocyt esOrdered By: Dr. Lo on 04-26-2022 Monocytes/100 WBC (Bld) 12.0 % 0-10 [facility] Blood platelet mean volumeOr dered By: Dr. Lo on 04-26-2022 Platelet mean volume (Bld) [Entitic vol] 10.3 fL 6.2-12.0 [facility] COVID-19 virus antigen assay Ordered By: Dr. Lo on 04-26-2022 SARS-CoV-2 (COVID-19) Ag IA.rapid Ql (Resp) [facility] Determination of erythrocyte mean corpuscular volume (MCV)Ordered By: Dr. Lo on 04-26-2022 MCV (RBC) [Entitic vol] 88.2 fL 81-99 [facility] Hematocrit Auto (Bld) [Volum e fraction]Ordered By: Dr. Lo on 04-26-2022 Hematocrit (Bld) [Volume fraction] 44.9 % 37-47 [facility] Laboratory - Chemistry and C hemistry - challengeOrdered By: Dr. Lo on 04-26-2022 ALP [Catalytic activity/Vol] 133 U/L 45-117 [facility] ALT [Catalytic activity/Vol] 16 U/L 13-56 [facility] CO2 [Moles/Vol] 25.0 mmol/L 21.0-32.0 [facility] Globulin (S) [Mass/Vol] 3.2 g/dL 2.2-4.2 [facility] Urea nitrogen/Creatinine [Mass ratio] 20.7 mg/mg 10-20 [facility] Laboratory - Hematology and Cell countsOrdered By: Dr. Lo on 04-26-2022 Erythrocyte distribution width (RBC) [Entitic vol] 42.0 fL 35.1-43.9 [facility] Erythrocyte distribution width (RBC) [Ratio] 13.0 % 11.6-14.6 [facility] Immature granulocytes/100 WBC (Bld) 0.200 % 0.0-0.9 [facility] Comment on above: IG% - Immature Granu locytes (promyelocytes, myelocytes and metamyelocytes) > 1% indicates that a LEFT SHIFT is Present. MCH (RBC) [Entitic mass] 28.7 pg 27.0-32.0 [facility] Nucleated RBC/100 WBC (Bld) [Ratio] 0 % 0-5 [facility] MCHC Auto (RBC) [Mass/Vol]Or dered By: Dr. Lo on 04-26-2022 MCHC (RBC) [Mass/Vol] 32.5 g/dL 32-36 [facility] No Panel InformationOrdered By: Dr. Lo on 04-26-2022 Estimated Creatinine Clearance Calc 48.56 ml/min [facility] Estimated GFR (MDRD) Amer 80 mL/min >60 [facility] Comment on above: GFR Calc Estimated GFR (MDRD) Non-Af Amer 66 mL/min >60 [facility] Comment on above: Non- GFR Calc Ethyl Alcohol Level < 3.0 mg/dL [facility] Comment on above: The serum:whole bloo d ethanol ratio is approximately 1.14and varies slightly with hematocrit. Medical Alcohol reference interval and critical value innon-tolerant individuals; 50 - 100 Impairment 100 Intoxication 100 - 250 Severe Poisoning 250 - 400 Deep/possible fatal coma Platelets bldOrdered By: Dr. Lo on 04-26-2022 Platelets (Bld) [#/Vol] 229 10*3/uL 150-450 [facility] Serum or plasma albumin jalil urement (mass/volume)Ordered By: Dr. Lo on 04-26-2022 Albumin [Mass/Vol] 3.2 g/dL 3.2-5.0 [facility] Serum or plasma albumin/glob ulin mass ratioOrdered By: Dr. Lo on 04-26-2022 Albumin/Globulin [Mass ratio] 1.0 {ratio} 0.9-2.4 [facility] Serum or plasma calcium jalil urement (mass/volume)Ordered By: Dr. Lo on 04-26-2022 Calcium [Mass/Vol] 8.7 mg/dL 8.5-10.1 [facility] Serum or plasma creatinine m easurement (mass/volume)Ordered By: Dr. Lo on 04-26-2022 Creatinine [Mass/Vol] 0.87 mg/dL 0.55-1.02 [facility] Comment on above: The validity of the calculated GFR & GFRAA in patients over 70 years has not been determined. Clinical correlation is essential. Serum or plasma urea nitroge n measurement (mass/volume)Ordered By: Dr. Lo on 04-26-2022 Urea nitrogen [Mass/Vol] 18 mg/dL 7-18 [facility] Thin prep Papanicolaou smear with manual screeningOrdered By: Dr. Lo on 04-26-2022 Thin prep Papanicolaou smear with manual screening 14 U/L 15-37 [facility] Thin prep Papanicolaou smear with manual screening 9 5-15 [facility] Culture, urineOrdered By: Dr Selena Herrera on 03-27-2022 Bacteria identified Cx Nom (U) Mixed Gram Pos & Gram Neg Org [facility] Absolute lymphocyte countOrd ered By: Dr. Herrera on 03-26-2022 Lymphocytes Auto (Unsp spec) [#/Vol] 0.97 10*3/uL 0.83-4.51 [facility] Basophil percentageOrdered B y: Dr. Herrera on 03-26-2022 Basophil percentage 0 SEEN /hpf 0-5 [facility] Basophils/100 WBC (Bld) 0.3 % 0-1 [facility] Chloride [Moles/Vol] 109 mmol/L 98-107 [facility] Eosinophils/100 WBC (Bld) 0.8 % 0-5 [facility] Glucose [Mass/Vol] 107 mg/dL 74-106 [facility] Comment on above: Fasting Glucose resu lt from 100 to 125 mg/dL suggests IMPAIRED HOMEOSTASIS per A.D.A. criteria. Lactate [Moles/Vol] 1.4 mmol/L 0.4-2.0 [facility] Neutrophils (Bld) [#/Vol] 4.7 10*3/uL 2.0-7.7 [facility] Neutrophils/100 WBC (Bld) 73.0 % 47-70 [facility] Potassium [Moles/Vol] 3.2 mmol/L 3.5-5.1 [facility] Sodium [Moles/Vol] 142 mmol/L 136-145 [facility] WBC (Bld) [#/Vol] 6.4 10*3/uL 4.4-11.0 [facility] Bilirubin Test strip Ql (U)O rdered By: Dr. Herrera on 03-26-2022 Bilirubin Ql (U) Negative Negative [facility] Blood erythrocytes count (nu mber/volume)Ordered By: Dr. Herrera on 03-26-2022 RBC (Bld) [#/Vol] 4.85 10*6/uL 4.2-5.4 [facility] Blood hemoglobin measurement (mass/volume)Ordered By: Dr. Herrera on 03-26-2022 Hemoglobin (Bld) [Mass/Vol] 14.4 g/dL 12.0-15.0 [facility] Blood lymphocytes/100 leukoc ytesOrdered By: Dr. Herrera on 03-26-2022 Lymphocytes/100 WBC (Bld) 15.2 % 19-41 [facility] Blood monocytes/100 leukocyt esOrdered By: Dr. Herrera on 03-26-2022 Monocytes/100 WBC (Bld) 10.4 % 0-10 [facility] Blood platelet mean volumeOr dered By: Dr. Herrera on 03-26-2022 Platelet mean volume (Bld) [Entitic vol] 10.6 fL 6.2-12.0 [facility] Determination of erythrocyte mean corpuscular volume (MCV)Ordered By: Dr. Herrera on 03-26-2022 MCV (RBC) [Entitic vol] 90.5 fL 81-99 [facility] Hematocrit Auto (Bld) [Volum e fraction]Ordered By: Dr. Herrera on 03-26-2022 Hematocrit (Bld) [Volume fraction] 43.9 % 37-47 [facility] Ketones Test strip Ql (U)Ord ered By: Dr. Herrera on 03-26-2022 Ketones Ql (U) 5 mg/dl Negative [facility] Laboratory - Chemistry and C hemistry - challengeOrdered By: Dr. Herrera on 03-26-2022 CO2 [Moles/Vol] 26.0 mmol/L 21.0-32.0 [facility] Urea nitrogen/Creatinine [Mass ratio] 36.3 mg/mg 10-20 [facility] Laboratory - Hematology and Cell countsOrdered By: Dr. Herrera on 03-26-2022 Erythrocyte distribution width (RBC) [Entitic vol] 43.6 fL 35.1-43.9 [facility] Erythrocyte distribution width (RBC) [Ratio] 13.2 % 11.6-14.6 [facility] Immature granulocytes/100 WBC (Bld) 0.300 % 0.0-0.9 [facility] Comment on above: IG% - Immature Granu locytes (promyelocytes, myelocytes and metamyelocytes) > 1% indicates that a LEFT SHIFT is Present. MCH (RBC) [Entitic mass] 29.7 pg 27.0-32.0 [facility] Nucleated RBC/100 WBC (Bld) [Ratio] 0 % 0-5 [facility] MCHC Auto (RBC) [Mass/Vol]Or dered By: Dr. Herrera on 03-26-2022 MCHC (RBC) [Mass/Vol] 32.8 g/dL 32-36 [facility] Mucus LM Ql (Urine sed)Order ed By: Dr. Herrera on 03-26-2022 Mucus Ql (Urine sed) 0 SEEN /hpf [facility] Nitrite Test strip Ql (U)Ord ered By: Dr. Herrera on 03-26-2022 Nitrite Ql (U) Negative Negative [facility] No Panel InformationOrdered By: Dr. Herrera on 03-26-2022 Estimated Creatinine Clearance Calc 42.25 ml/min [facility] Estimated GFR (MDRD) Amer 100 mL/min >60 [facility] Comment on above: GFR Calc Estimated GFR (MDRD) Non-Af Amer 82 mL/min >60 [facility] Comment on above: Non- GFR Calc Troponin I High Sensitivity 27 pg/mL 3.0-54.0 [facility] Comment on above: Please Note: New Madiha t Units and Gender Specific Reference Ranges. For more information see Policy Stat Procedure [place] High Sensitivity Troponin (TNIH) and attachments. Platelets bldOrdered By: Dr. Herrera on 03-26-2022 Platelets (Bld) [#/Vol] 218 10*3/uL 150-450 [facility] Protein Test strip Ql (U)Ord ered By: Dr. Herrera on 03-26-2022 Protein Ql (U) Negative Negative [facility] Serum or plasma calcium jalil urement (mass/volume)Ordered By: Dr. Herrera on 03-26-2022 Calcium [Mass/Vol] 9.3 mg/dL 8.5-10.1 [facility] Serum or plasma creatinine m easurement (mass/volume)Ordered By: Dr. Herrera on 03-26-2022 Creatinine [Mass/Vol] 0.72 mg/dL 0.55-1.02 [facility] Comment on above: The validity of the calculated GFR & GFRAA in patients over 70 years has not been determined. Clinical correlation is essential. Serum or plasma urea nitroge n measurement (mass/volume)Ordered By: Dr. Herrera on 03-26-2022 Urea nitrogen [Mass/Vol] 26 mg/dL 7-18 [facility] Squamous epithelial cells de tection in urine sediment by light microscopyOrdered By: Dr. Herrera on 03-26-2022 Epithelial cells.squamous LM Ql (Urine sed) 0-5 SEEN /hpf 5-10 [facility] Thin prep Papanicolaou smear with manual screeningOrdered By: Dr. Herrera on 03-26-2022 Thin prep Papanicolaou smear with manual screening 7 5-15 [facility] Urine blood detectionOrdered By: Dr. Herrera on 03-26-2022 RBC Ql (U) 10 /ul Negative [facility] RBC Ql (U) 0 SEEN /hpf 0-5 [facility] Urine clarityOrdered By: Dr. Herrera on 03-26-2022 Clarity (U) Clear Clear [facility] Urine color determinationOrd ered By: Dr. Herrera on 03-26-2022 Color (U) Yellow Yellow [facility] Urine glucose detectionOrder ed By: Dr. Herrera on 03-26-2022 Glucose Ql (U) Normal mg/dl Normal [facility] Urine leukocyte esterase det ection by dipstickOrdered By: Dr. Herrera on 03-26-2022 Leukocyte esterase Test strip Ql (U) Negative Negative [facility] Urine pHOrdered By: Dr. Cindy purvis on 03-26-2022 pH (U) 6.5 [pH] 5.0 - 8.0 [facility] Urine sediment bacteria coun t by microscopy (number/high power field)Ordered By: Dr. Herrera on 03-26-2022 Bacteria LM.HPF (Urine sed) [#/Area] 0 /[HPF] None Seen [facility] Urine specific gravity measu rementOrdered By: Dr. Herrera on 03-26-2022 Specific gravity (U) [Rel density] 1.020 1.002-1.03 0 [facility] Urobilinogen Auto test strip Ql (U)Ordered By: Dr. Herrera on 03-26-2022 Urobilinogen Ql (U) Normal mg/dl Normal [facility] Office Visiton 02-22-2017 Fall risk assessment No Invalid Interpretation Code [facility] [email or web address] Work Phone: [phone] Protein mass conc Done Invalid Interpretation Code [facility] [employer] Work Phone: [phone] Tobacco smoking status NHIS Never smoker Invalid Interpretation Code [facility] [employer] Work Phone: [phone] Clinical Lists Update: [facility] 12-30-2015 Left ventricular Ejection fraction 55 % Invalid Interpretation Code [facility] [employer] Work Phone: [phone] Clinical Lists Update: [facility] Albumin mass conc 3.9 g/dL Invalid Interpretation Code [facility] [email or web address] Work Phone: [phone] ALP enzyme act/vol (Bld) 80 U/L Invalid Interpretation Code [facility] [place] [employer] Work Phone: [phone] ALT enzyme act/vol 14 U/L Invalid Interpretation Code [facility] [employer] Work Phone: [phone] Anion gap 4 molar conc 12 Invalid Interpretation Code [facility] [employer] Work Phone: [phone] AST enzyme act/vol 22 U/L Invalid Interpretation Code [facility] [email or web address] Work Phone: [phone] Bilirubin mass conc 0.8 mg/dL Invalid Interpretation Code [facility] Work Phone: [phone] Calcium mass conc 9.1 mg/dL Invalid Interpretation Code [facility] Work Phone: [phone] Chloride molar conc 100 mmol/L Invalid Interpretation Code [facility] Work Phone: [phone] Cholesterol in HDL mass conc 82 mg/dL Invalid Interpretation Code [facility] Work Phone: [phone] Cholesterol in LDL mass conc 64 mg/dL Invalid Interpretation Code [facility] Work Phone: [phone] Cholesterol in LDL/Cholesterol in HDL mass ratio 0.78 Invalid Interpretation Code [facility] Work Phone: [phone] Cholesterol mass conc 160 mg/dL Invalid Interpretation Code [facility] Work Phone: [phone] Cholesterol.total/Cho lesterol in HDL mass ratio 1.95 {ratio} Invalid Interpretation Code [facility] [email or web address] Work Phone: [phone] CO2 ppres (BldV) 30 mmol/L Invalid Interpretation Code [facility] Work Phone: [phone] Creatinine mass conc 0.66 mg/dL [facility] Work Phone: [phone] Glucose mass conc 90 mg/dL Invalid Interpretation Code [facility] [email or web address] Work Phone: [phone] Lipoprotein.pre-beta mass conc 14 mg/dL Invalid Interpretation Code [facility] Work Phone: [phone] Potassium molar conc 4.0 mmol/L Invalid Interpretation Code [facility] Work Phone: [phone] Protein mass conc 6.9 g/dL Invalid Interpretation Code [facility] Work Phone: [phone] Sodium molar conc 142 mmol/L Invalid Interpretation Code [facility] Work Phone: [phone] Thyrotropin Qn 0.158 u[iU]/mL Low [facility] Work Phone: [phone] Triglyceride mass conc 69 mg/dL Invalid Interpretation Code [facility] Work Phone: [phone] Urea nitrogen mass conc 20 mg/dL Invalid Interpretation Code [facility] Work Phone: [phone] Clinical Lists Update: [employer] 04-20-2015 Bilirubin.direct mass conc mg/dL Invalid Interpretation Code [employer] Work Phone: [phone] Office Visiton 01-04-2015 cardiac risk group B Invalid Interpretation Code [employer] Work Phone: [phone] General cardiovascular disease 10Y risk [#] Una[place]afat 3 % Invalid Interpretation Code [employer] Work Phone: [phone] Clinical Lists Update: [employer] 10-08-2014 Erythrocyte distribution width Auto Ratio (RBC) 13.2 % Invalid Interpretation Code [employer] Work Phone: [phone] Hematocrit Auto Volume Fraction (Bld) 41.4 % Invalid Interpretation Code [employer] Work Phone: [phone] Hemoglobin mass conc (Bld) 12.9 g/dL Invalid Interpretation Code [employer] Work Phone: [phone] MCH Auto Entitic mass (RBC) 29.2 pg Invalid Interpretation Code [employer] Work Phone: [phone] MCHC Auto mass conc (RBC) 31.2 g/dL Invalid Interpretation Code [employer] Phone: [phone] MCV Auto Entitic volume (RBC) 93.7 fL Invalid Interpretation Code [employer] Work Phone: [phone] Platelet mean volume Jhonny-Harjit Entitic volume (Bld) 10.6 fL Invalid Interpretation Code [employer] Phone: [phone] Platelets Auto #/vol (Bld) 191 10*3/mm3 Invalid Interpretation Code [employer] Work Phone: [phone] RBC Auto #/vol (Bld) 4.42 10*6/uL Invalid Interpretation Code [employer] Work Phone: [phone] WBC Auto #/vol (Bld) 4.34 10*3/uL Invalid Interpretation Code [employer] Phone: [phone] Lab Report: [id number] 14 ALK 77 U/L Normal 45-117 [employer] Work Phone: Office Visiton 10-02-2013 Protein mass conc no Invalid Interpretation Code [employer] Work Phone: [phone] Replaced Document: [facility] CG Observationson 10-02-2013 EKG QRS axis -45 deg Invalid Interpretation Code [facility] Work Phone: [phone] Interpretation Sinus Bradycardia - frequent ectopic ventricular beat s # VECs = 2-Left axis -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 -Nonspecific ST depression -Nondiagnostic. ABNORMAL Invalid Interpretation Code [facility] Work Phone: [phone] P [place] 58 deg Invalid Interpretation Code [facility] Work Phone: [phone] MT Interval 186 ms Invalid Interpretation Code [facility] Work Phone: [phone] QRS Duration 118 ms Invalid Interpretation Code [facility] Work Phone: [phone] QT Interval new path ms Invalid Interpretation Code [facility] Work Phone: [phone] T [place] -1 deg Invalid Interpretation Code [facility] Work Phone: [phone] Culture, urine Bacteria identified Cx Nom (U) Mixed Gram Pos & Gram Neg Org [facility] Work Phone: Vital Signs Date Time Vital Sign Value Performing Clinician Facility 10-06-2024 16:48-0400 Body height 172.[address] José Miguel Frias MD Work Phone: [facility] 10-06-2024 16:48-0400 Body temperature 98.1 [degF] Dr. José Miguel Frias MD Work Phone: [facility] 10-06-2024 16:48-0400 Diastolic blood pressure 99 mm[Hg] Dr. José Miguel Frias MD Work Phone: [facility] 10-06-2024 16:48-0400 Heart rate 77 /min Dr. José Miguel Frias MD Work Phone: [facility] 10-06-2024 16:48-0400 Respiratory rate 19 /min Dr. José Miguel Frias MD Work Phone: [facility] 10-06-2024 16:48-0400 SaO2% (BldA) [Mass fraction] 98 % Dr. José Miguel Frias MD Work Phone: [facility] 10-06-2024 16:48-0400 Systolic blood pressure 172 mm[Hg] Dr. José Miguel Frias MD Work Phone: [phone] [place] [address] 02-25-2023 13:22-0400 Body temperature 98 [degF] Dr. José Miguel Frias Work Phone: [phone] [place] [address] 02-25-2023 13:22-0400 Diastolic blood pressure 69 mm[Hg] Dr. José Miguel Frias Work Phone: 4(759)036-300703 [place] [address] 02-25-2023 13:22-0400 Heart rate 76 /min Dr. José Miguel Frias Work Phone: 4(455)377-083803 [place] [address] 02-25-2023 13:22-0400 Respiratory rate 18 /min Dr. José Miguel Frias Work Phone: [phone])[phone] [place] [address] 02-25-2023 13:22-0400 SaO2% (BldA) [Mass fraction] 96 % Dr. José Miguel Frias Work Phone: 0(920)857-233703 [place] [address] 02-25-2023 13:22-0400 Systolic blood pressure 116 mm[Hg] Dr. José Miguel Frias Work Phone: [phone])191-896903 [place] [address] 02-24-2023 13:31-0400 Body height 172.[address] José Miguel Frias Work Phone: [phone])336-512603 [place] [address] 02-24-2023 13:31-0400 Body weight 80.[address] José Migule Frias Work Phone: 3(023)792-749603 [place] [address] 02-23-2023 23:37-0400 Body mass index (BMI) [Ratio] 26.9 kg/m2 Dr. José Miguel Frias Work Phone: [facility] 12-22-2022 15:09-0400 Body weight 78.02 kg José Miguel Frias MD Work Phone: [facility] 12-22-2022 15:09-0400 Diastolic blood pressure 84 mm[Hg] José Miguel Frias MD Work Phone: [facility] 12-22-2022 15:09-0400 Heart rate 62 /min José Miguel Frias MD Work Phone: [facility] 12-22-2022 15:09-0400 Respiratory rate 16 /min José Miguel Frias MD Work Phone: [facility] 12-22-2022 15:09-0400 Systolic blood pressure 122 mm[Hg] José Miguel Frias MD Work Phone: [facility] 10-31-2022 15:50-0400 Body weight 82.56 kg Nedra Cheema [employer] Work Phone: [facility] 10-31-2022 15:50-0400 Diastolic blood pressure 62 mm[Hg] Nedra Cheema [employer] Work Phone: [facility] 10-31-2022 15:50-0400 Heart rate 72 /min Nedra Cheema [employer] Work Phone: [facility] 10-31-2022 15:50-0400 Respiratory rate 16 /min Nedra Cheema [employer] Work Phone: [facility] 10-31-2022 15:50-0400 Systolic blood pressure 132 mm[Hg] Nedra Cheema [employer] Work Phone: [facility] 09-15-2022 16:33-0400 Body temperature 97.81 [degF] José Miguel Frias MD Work Phone: [facility] 09-15-2022 16:33-0400 Body weight 78.47 kg José Miguel Frias MD Work Phone: [facility] 09-15-2022 16:33-0400 Diastolic blood pressure 70 mm[Hg] José Miguel Frias MD Work Phone: [facility] 09-15-2022 16:33-0400 Heart rate 64 /min José Miguel Frias MD Work Phone: [facility] 09-15-2022 16:33-0400 Respiratory rate 14 /min José Miugel Frias MD Work Phone: [facility] 09-15-2022 16:33-0400 SaO2% (BldA) [Mass fraction] 99 % José Miguel Frias MD Work Phone: [facility] 09-15-2022 16:33-0400 Systolic blood pressure 132 mm[Hg] José Miguel Frias MD Work Phone: [facility] 09-04-2022 13:41-0400 Body weight 78.93 kg Mckenzie Older [employer] Work Phone: [facility] 09-04-2022 13:41-0400 Diastolic blood pressure 68 mm[Hg] Mckenzie Older [employer] Work Phone: [facility] 09-04-2022 13:41-0400 Heart rate 60 /min Mckenzie Older [employer] Work Phone: [facility] 09-04-2022 13:41-0400 Respiratory rate 12 /min Mckenzie Older [employer] Work Phone: [facility] 09-04-2022 13:41-0400 Systolic blood pressure 138 mm[Hg] Mckenzie Older [employer] Work Phone: [facility] 08-03-2022 14:08-0400 Body weight 77.47 kg José Miguel Frias MD Work Phone: [facility] 08-03-2022 14:08-0400 Diastolic blood pressure 62 mm[Hg] José Miguel Frias MD Work Phone: [facility] 08-03-2022 14:08-0400 Heart rate 64 /min José Miguel Frias MD Work Phone: [facility] 08-03-2022 14:08-0400 Respiratory rate 12 /min José Miguel Frias MD Work Phone: [facility] 08-03-2022 14:08-0400 Systolic blood pressure 122 mm[Hg] José Miguel Frias MD Work Phone: [facility] 07-26-2022 13:01-0400 Body temperature 98.01 [degF] José Miguel Frias MD Work Phone: [facility] 07-26-2022 13:01-0400 Body weight 77.47 kg José Miguel Frias MD Work Phone: [facility] 07-26-2022 13:01-0400 Diastolic blood pressure 56 mm[Hg] José Miguel Frias MD Work Phone: [facility] 07-26-2022 13:01-0400 Heart rate 68 /min José Miguel Frias MD Work Phone: [facility] 07-26-2022 13:01-0400 Respiratory rate 12 /min José Miguel Frias MD Work Phone: [facility] 07-26-2022 13:01-0400 Systolic blood pressure 100 mm[Hg] José Miguel Frias MD Work Phone: [facility] 07-01-2022 11:07-0500 Body temperature 96.69 [degF] José Miguel Frias MD Work Phone: [facility] 07-01-2022 11:07-0500 Body weight 75.75 kg José Miguel Frias MD Work Phone: [facility] 07-01-2022 11:07-0500 Diastolic blood pressure 68 mm[Hg] José Miguel Frias MD Work Phone: [facility] 07-01-2022 11:07-0500 Heart rate 80 /min José Miguel Frias MD Work Phone: [facility] 07-01-2022 11:07-0500 Respiratory rate 18 /min José Miguel Frias MD Work Phone: [facility] 07-01-2022 11:07-0500 SaO2% (BldA) [Mass fraction] 96 % José Miguel Frias MD Work Phone: [facility] 07-01-2022 11:07-0500 Systolic blood pressure 118 mm[Hg] José Miguel Frias MD Work Phone: [facility] 06-14-2022 13:10-0500 Body height 165.1 cm José Miguel Frias MD Work Phone: [facility] 06-14-2022 13:10-0500 Body temperature 98.01 [degF] José Miguel Frias MD Work Phone: [facility] 06-14-2022 13:10-0500 Body weight 74.84 kg José Miguel Frias MD Work Phone: [facility] 06-14-2022 13:10-0500 Diastolic blood pressure 60 mm[Hg] José Miguel Frias MD Work Phone: [facility] 06-14-2022 13:10-0500 Heart rate 76 /min José Miguel Frias MD Work Phone: [facility] 06-14-2022 13:10-0500 Respiratory rate 12 /min José Miguel Frias MD Work Phone: [facility] 06-14-2022 13:10-0500 Systolic blood pressure 128 mm[Hg] José Miguel Frias MD Work Phone: [facility] 04-27-2022 08:16-0500 Diastolic blood pressure 78 mm[Hg] [facility] 04-27-2022 08:16-0500 Heart rate 78 /min [facility] 04-27-2022 08:16-0500 Respiratory rate 16 /min [facility] 04-27-2022 08:16-0500 SaO2% (BldA) [Mass fraction] 99 % [facility] 04-27-2022 08:16-0500 Systolic blood pressure 130 mm[Hg] [facility] 04-27-2022 04:13-0500 Body temperature 98.2 [degF] [facility] 04-26-2022 22:25-0500 Body height 172.72 cm [facility] 04-26-2022 22:25-0500 Body mass index (BMI) [Ratio] 22.8 kg/m2 [facility] 04-26-2022 22:25-0500 Body weight 68.2 kg [facility] 04-08-2022 20:09-0500 Body temperature 98.4 [degF] [facility] 04-08-2022 20:09-0500 Diastolic blood pressure 61 mm[Hg] [facility] 04-08-2022 20:09-0500 Heart rate 94 /min [facility] 04-08-2022 20:09-0500 Respiratory rate 16 /min [facility] 04-08-2022 20:09-0500 SaO2% (BldA) [Mass fraction] 99 % [facility] 04-08-2022 20:09-0500 Systolic blood pressure 134 mm[Hg] [facility] 04-08-2022 18:18-0500 Body height 172.72 cm [facility] Work Phone: 04-08-2022 18:18-0500 Body mass index (BMI) [Ratio] 20.5 kg/m2 [facility] 04-08-2022 18:18-0500 Body weight 61.23 kg [facility] 03-26-2022 08:39-0500 Body height 172.72 cm [facility] Work Phone: 03-26-2022 08:39-0500 Body mass index (BMI) [Ratio] 22.8 kg/m2 [facility] 03-26-2022 08:39-0500 Body temperature 97.1 [degF] [facility] 03-26-2022 08:39-0500 Body weight 68.03 kg [facility] 03-26-2022 08:39-0500 Diastolic blood pressure 120 mm[Hg] [facility] 03-26-2022 08:39-0500 Heart rate 140 /min [facility] 03-26-2022 08:39-0500 Respiratory rate 18 /min [facility] 03-26-2022 08:39-0500 SaO2% (BldA) [Mass fraction] 99 % [facility] 03-26-2022 08:39-0500 Systolic blood pressure 191 mm[Hg] [facility] 02-22-2017 15:09-0400 BMI (Body Mass Index) 27.37 kg/m2 [facility] Work Phone: 02-22-2017 15:09-0400 BP Diastolic 78 mm[Hg] [facility] Work Phone: 02-22-2017 15:09-0400 BP Systolic 118 mm[Hg] [facility] Work Phone: 02-22-2017 15:09-0400 Height 172.72 cm [facility] Work Phone: 02-22-2017 15:09-0400 Pulse (Heart Rate) 76 /min [facility] Work Phone: 02-22-2017 15:09-0400 Respiratory Rate 18 /min [facility] Work Phone: 02-22-2017 15:09-0400 Weight 81.65 kg [facility] Work Phone: 02-07-2016 09:04-0400 BSA (Body Surface Area) 1.96 m2 [facility] Work Phone: 10-02-2013 15:17-0400 Heart rate 56 /min [facility] Work Phone: 05-16-2012 13:58-0500 Heart rate 423 ms [facility] Work Phone: Encounters Encounter Date Encounter Type Care Provider Facility Start: 11-20-2024 ambulatory Emmanuel VELASQUEZ Facil ity:[facility] Start: 10-10-2024 ambulatory Emmanuel VELASQUEZ Facil ity:[facility] Start: 10-10-[address] Emmanuel vázquez MD -[facility] Work Phone: Start: 10-06-2024 End: 10-06-2024 Emergency department patient visit Dr. José Miguel Frias MD Work Phone: -Emergency Department Work Phone: Start: 09-30-2024 End: 09-30-[address] José Miguel Frias MD Work Phone: [facility] Work Phone: Start: 09-30-2024 End: 09-30-[address] Emmanuel Park MD -[facility] [place] Work Phone: Start: 09-30-[address] Emmanuel vázquez MD -[facility] [place] Work Phone: Start: 09-30-2024 End: 09-30-2024 ambulatory José Miguel Frias Facility:[facility] Start: 08-21-2024 End: 08-21-[address] José Miguel Frias MD Work Phone: [facility] Work Phone: Start: 08-21-2024 End: 08-21-[address] Emmanuel Park MD -[facility] [place] Work Phone: Start: 08-21-2024 End: 08-21-2024 ambulatory José Miguel Frias Facility:[facility] Start: 04-23-2024 End: 04-24-2024 Refill José Miguel Frias MD Work Phone: [facility] [place] Comment on above: Refill Request request medicaiton n ot on current med list Start: 04-21-2024 ambulatory José Miguel Frias Facili ty:[facility] Start: 04-16-2024 ambulatory Emmanuel Park OLS Facil ity:[facility] Start: 04-11-2024 End: 04-11-2024 Emergency department patient visit Ellisellen Avila Facility:[facility] Start: 04-02-2024 End: 04-02-2024 ambulatory Emmanuel Park OLS Facility:[facility] Start: 03-19-2024 ambulatory Emmanuel Park OLS Facil ity:[facility] Start: 01-16-2024 End: 01-16-2024 ambulatory Emmanuel Park OLS Facility:[facility] Start: 12-19-2023 Telephone encounter José Miguel odell MD Work Phone: [facility] [place] Comment on above: Patient Outreach Start: 12-14-2023 ambulatory [facility] [place] Start: 12-14-2023 Patient encounter procedure Tammy Ellis MA [facility] [place] Comment on above: Population Health Na vigation Outreach ([facility] - [place] [facility]SA) Start: 12-14-2023 End: 12-14-2023 ambulatory [facility] O[facility] Facility:[facility] Start: 12-05-2023 End: 12-05-2023 ambulatory Emmanuel Park OLS Facility:[facility] Start: 10-09-2023 ambulatory [facility] [place] Start: 10-09-2023 Patient encounter procedure [facility] [place] Comment on above: Population Health Na vigation Outreach ([facility] CURRENT [facility]OSTER workbench - [facility], Care gaps, HCC gap closure - [place] [facility]) Start: 08-30-2023 ambulatory [facility] [place] Start: 08-30-2023 Patient encounter procedure [facility] [place] Comment on above: Population Health Na vigation Outreach ([facility] CURRENT [facility] workbench - [facility], Care gaps, HCC gap closure - [place] [facility]SA) Start: 05-29-2023 End: 05-29-2023 ambulatory JOSÉ MIGUEL FRIAS Facility:[facility] Start: 04-12-2023 Refill José Miguel beck MD Work Phone: [facility] [place] Comment on above: Refill Request Start: 04-10-2023 Telephone encounter Nedra abdullahi [employer] DO[employer] Work Phone: [facility] [place] Comment on above: Orders Start: 03-26-2023 Telephone encounter José Miguel odell MD Work Phone: [facility] [place] Comment on above: [facility] HH Update Start: 03-23-2023 Refill José Miguel beck MD Work Phone: [facility] [place] Comment on above: Refill Request Start: 03-22-2023 Telephone encounter José Miguel odell MD Work Phone: [facility] [place] Comment on above: Patient Update Start: 03-19-2023 Telephone encounter Nedra Kim ks [employer]SPINNING DOFFER Work Phone: [facility] [place] Comment on above: report on patient le gs Start: 03-13-2023 Telephone encounter José Miguel odell MD Work Phone: [facility] [place] Comment on above: Release Of Medical R ecords Start: 03-09-2023 ambulatory José Miguel beck MD Work Phone: [facility] [place] Comment on above: Edema Start: 03-09-2023 Telephone encounter José Miguel odell MD Work Phone: [facility] [place] Comment on above: Medication Problem Start: 03-06-2023 Telephone encounter José Miguel odell MD Work Phone: [facility] [place] Comment on above: [facility] PT POC medication allergy Start: 02-27-2023 Telephone encounter José Miguel odell MD Work Phone: [facility] [place] Comment on above: [facility] HH Plan Start: 02-24-2023 Non-patient / Non-visit Dr. Christine Frias Work Phone: [facility] Work Phone: Start: 02-23-2023 Non-patient / Non-visit Dr. Christine Frias Work Phone: [facility] Work Phone: Start: 02-23-2023 End: 02-25-2023 Evaluation and management of inpatient Dr. José Miguel Frias Work Phone: [facility]-Medical Surgical 3 Work Phone: Start: 02-23-2023 End: 02-25-[address] José Miguel Frias Work Phone: [facility] Work Phone: Start: 12-26-2022 Telephone encounter José Miguel odell MD Work Phone: Internal [facility] [place] Comment on above: Patient Update Start: 12-22-2022 End: 12-22-2022 Patient encounter procedure José Miguel Frias MD Work Phone: [facility] [place] Comment on above: Dyspnea, unspecified type (Primary Dx); Venous (peripheral) insufficiency; Stasis dermatitis of both legs; Dementia with behavioral disturbance (HCC); History of panic attacks Start: 11-29-2022 Refill José Miguel beck MD Work Phone: [facility] [place] Comment on above: Refill Request Start: 11-22-2022 End: 11-22-2022 Patient encounter procedure Nestor Hughes Work Phone: Podiatry Comment on above: Traumatic avulsion o f nail plate of toe, initial encounter (Primary Dx); Onychomycosis; Venous insufficiency; Callus Start: 11-06-2022 Orders Only José Miguel beck MD Work Phone: [facility] [place] Comment on above: Major depressive dis order with current active episode, unspecified depression episode severity, unspecified whether recurrent (Primary Dx); Dementia with behavioral disturbance (HCC) Start: 10-31-2022 End: 10-31-2022 Subsequent hospital visit by physician Shahram [facility] Work Phone: Radiology Comment on above: Injury of right grea t toe, initial encounter [S99.921A] Start: 10-31-2022 End: 10-31-2022 Office outpatient visit 15 minutes Nedra Cheema APRN.CNS Work Phone: Internal Medicine [place] Comment on above: Avulsion of toenail, initial encounter (Primary Dx); Injury of right great toe, initial encounter; Cellulitis of great toe of right foot Start: 10-31-2022 Telephone encounter José Miguel odell MD Work Phone: [facility] [place] Comment on above: Patient Update Start: 10-18-2022 End: 10-18-2022 ambulatory [facility] Work Phone: Start: 10-18-2022 End: 10-18-2022 Departed Referred [facility] Thais Aguirre Start: 10-05-2022 ambulatory [facility] ([facility]) [facility] [place] Comment on above: Population Health Na vigation Outreach ([facility] care gap) Start: 09-15-2022 End: 09-15-2022 Patient encounter procedure José Miguel Frias MD Work Phone: Internal Medicine [place] Comment on above: Acute erythematous e ruption of skin (Primary Dx); Bilateral lower extremity edema; Venous insufficiency; Primary hypertension; DDD (degenerative disc disease), lumbar Start: 09-04-2022 End: 09-04-2022 Patient encounter procedure Mckenzie Ruggiero APRN.MOLD MAKER Work Phone: Internal Medicine [place] Comment on above: Acute erythematous e ruption of skin (Primary Dx); Venous insufficiency; Bilateral lower extremity edema Start: 08-25-2022 End: 08-25-2022 ambulatory [facility] Work Phone: Start: 08-25-2022 End: 08-25-2022 Departed Referred [facility] Start: 08-10-2022 Telephone encounter José Miguel odell MD Work Phone: Internal [facility] Comment on above: Medication Question Start: 08-03-2022 End: 08-03-2022 Patient encounter procedure José Miguel Frias MD Work Phone: [facility] [place] Comment on above: Dementia with behavi oral disturbance (HCC) (Primary Dx); Major depressive disorder with current active episode, unspecified depression episode severity, unspecified whether recurrent; Seborrheic dermatitis of scalp; Hypothyroidism, acquired; Hyperlipidemia LDL goal <130 Start: 08-01-2022 ambulatory Kaye MCKENNA [employer] Comment on above: Patient Update (Conf erenced facility [facility] [employer] [employer] to affiliate line ) Start: 08-01-2022 Telephone encounter José Miguel odell MD Work Phone: Family [facility] Comment on above: Results Confusion Start: 07-31-2022 Refill José Miguel beck MD Work Phone: [facility] [place] Comment on above: Refill Request Start: 07-28-2022 End: 07-28-2022 ambulatory [facility] Work Phone: Start: 07-28-2022 End: 07-28-2022 Departed Referred [facility] Start: 07-28-2022 Registered Referred [facility] Start: 07-26-2022 End: 07-26-2022 Patient encounter procedure José Miguel Frias MD Work Phone: Internal [facility] [place] Comment on above: Dementia with behavi oral disturbance (HCC) (Primary Dx); Major depressive disorder with current active episode, unspecified depression episode severity, unspecified whether recurrent; Venous (peripheral) insufficiency; Primary hypertension Start: 07-18-2022 End: 07-18-2022 ambulatory [facility] Work Phone: Start: 07-18-2022 End: 07-18-2022 Departed Referred [facility] Start: 07-12-2022 Telephone encounter José Miguel odell MD Work Phone: Internal [facility] [place] Comment on above: Patient Update Start: 07-07-2022 ambulatory José Miguel beck MD Work Phone: [facility] Comment on above: Allied Health Visit (Medication Adherence Outreach) Start: 07-01-2022 End: 07-01-2022 Patient encounter procedure José Miguel Frias MD Work Phone: Internal [facility] [place] Comment on above: Sinusitis, unspecifi ed chronicity, unspecified location (Primary Dx); Dementia with behavioral disturbance (HCC); Major depressive disorder with current active episode, unspecified depression episode severity, unspecified whether recurrent Start: 06-27-2022 Telephone encounter José Miguel odell MD Work Phone: [facility] [place] Comment on above: behavioral change Start: 06-14-2022 End: 06-14-2022 Patient encounter procedure José Miguel Frias MD Work Phone: Internal [facility] [place] Comment on above: Dementia with behavi oral disturbance (Primary Dx); Major depressive disorder with current active episode, unspecified depression episode severity, unspecified whether recurrent; Primary hypertension; Hypothyroidism, acquired; Hyperlipidemia LDL goal <130; Impacted cerumen of both ears Start: 05-17-2022 End: 05-17-2022 ambulatory [facility] Work Phone: Start: 05-17-2022 End: 05-17-2022 Departed Referred [facility] Start: 04-26-2022 End: 04-27-2022 Emergency department patient visit [facility]-Emergency Department Start: 04-08-2022 End: 04-08-2022 Emergency department patient visit [facility]-Emergency Department Start: 03-26-2022 End: 03-26-2022 Emergency department patient visit [facility]-Emergency Department Start: 08-23-2021 Refill José Miguel beck MD Work Phone: Internal [facility] Comment on above: Prescription Refills Start: 08-18-2021 Refill Cecilio PRICE RN.CEDRIC HOLLIS Work Phone: [facility] Comment on above: Refill Request Start: 08-09-2021 ambulatory José Miguel beck MD Work Phone: Internal Medicine [facility] Start: 07-24-2021 Refill Cecilio PRICE RN.CEDRIC HOLLIS Work Phone: [facility] Comment on above: Refill Request Procedures Date Procedure Procedure Detail Performing Clinician Start: 10-06-2024 CT of head without contrast Dr. José Miguel Frias MD Work Phone: Start: 09-30-2024 Urnls dip stick/tabl et reagent auto microscopy Dr. José Miguel Frias MD Work Phone: Start: 09-30-[address] Daniel Frias MD Work Phone: Start: 02-23-2023 End: 02-23-2023 Plain chest X-ray Dr. José Miguel Frias Work Phone: Start: 02-23-2023 CT cervical spine wi thout contrast Dr. José Miguel Frias Work Phone: Start: 02-23-2023 CT of head without contrast Dr. José Miguel Frias Work Phone: Start: 02-23-2023 SARS-CoV-2 & FLU Ant igen (Rapid) Dr. José Miguel Frias Work Phone: Start: 12-22-2022 End: 12-22-2022 Ecg routine ecg w/least 12 lds i&r only [facility] Provider Start: 10-31-2022 Radex foot complete minimum 3 views Nedra Deni PR[employer] SET UP[employer]SPINNING DOFFER Work Phone: Start: 04-26-2022 Plain chest X-ray Start: 04-26-2022 CT of head without contrast Start: 04-08-2022 Plain X-ray of tibia and fibula Start: 03-26-2022 Plain chest X-ray Start: 02-22-2017 End: 02-22-2017 Dietary management education, guidance, and counseling [facility]anc Start: 02-07-2016 End: 02-07-2016 Follow Up Appt 1 year [facility] Start: 02-07-2016 End: 02-07-2016 PFM [facility] Tolbert MD Start: 10-22-2015 End: 12-28-2015 Lipid 1996 panel - Serum or Plasma [facility] MD Start: 04-06-2015 End: 04-22-2015 *Hepatic Function Panel [facility] MD Start: 04-06-2015 End: 04-22-2015 Lipid 1996 panel - Serum or Plasma [facility] MD Start: 01-04-2015 End: 01-05-2015 Documentation of current medications [facility] Start: 04-06-2014 End: 10-26-2014 *Hepatic Function Panel [facility] MD Start: 04-06-2014 End: 10-26-2014 Lipid 1996 panel - Serum or Plasma [facility] Start: 10-02-2013 End: 10-10-2013 Ecg routine ecg w/least 12 lds w/i&r [facility] Start: 10-02-2013 End: 10-02-2013 Follow Up Appt 1 year [facility] Start: 10-02-2013 End: 10-10-2013 Lipid 1996 panel - Serum or Plasma [facility] MD Start: 10-02-2013 End: 10-02-2013 PFM [facility] Tolbert MD Start: 07-08-2012 End: 10-02-2013 48 hour holter monitor [facility] Start: 05-16-2012 End: 10-02-2013 Ecg routine ecg w/least 12 lds w/i&r [facility] MD Start: 05-16-2012 End: 10-02-2013 Follow Up Appt 1 year [facility] Start: 05-25-2011 End: 05-25-2011 Ecg routine ecg w/least 12 lds w/i&r [facility] Start: 05-25-2011 End: 05-25-2011 Follow Up Appt 1 year [facility] Urine culture Urine culture Urine culture Urine culture Viral antigen assay Plan of Treatment Date Care Activity Detail Author Start: 08-03-2025 DIABETES SCREEN DIABETES SCREEN [facility] Start: 08-03-2025 Diabetes Screening Diabetes Screenin g [facility] Start: 01-06-2024 Covid-19 Vaccine () Covid-19 Vaccine () [facility] Start: 01-06-2024 Covid-19 Vaccine (4 - 2024-25 season) Covid-19 Vaccine ( season) [facility] Start: 01-06-2024 Influenza vaccination [facility] Start: 12-12-2023 End: 12-12-2023 Patient encounter procedure 12/12/2023 3:00 PM EDT Office Visit [facility] [place] [address] [place] [address] Mckenzie Funk, PRESS SET UP.MOLD MAKER [address] [place] [address] Annual Medicare Wellness [facility] [place] Comment on above: Annual Medicare Well ness Start: 09-05-2023 COVID-19 VACCINE (4 - Booster for Pfizer series) COVID-19 VACCINE (4 - Booster for Pfizer series) [facility] Comment on above: Postponed from 08/09 (Declined at this time) Start: 09-05-2023 COVID-19 VACCINE (4 - Pfizer series) COVID-19 VACCINE (4 - Pfizer series) [facility] Comment on above: Postponed from 08/09 (Declined at this time) Start: 09-05-2023 SHINGRIX VACCINE (2 of 3) LEMUS GRIX VACCINE (2 of 3) [facility] Comment on above: Postponed from 08/31 (Declined at this time) Start: 09-05-2023 Urine microalbumin profile [facility] Comment on above: Postponed from 05/21 (Declined at this time) Start: 05-07-2023 Advance Directive Discussion Advance Directive Discussion [facility] Start: 02-25-2023 Patient discharge [facility] Start: 02-24-2023 Referral [facility] service [facility] Start: 02-23-2023 Following clinical pathway protocol [facility] Start: 02-23-2023 Ambulation without limitation [facility] Start: 02-23-2023 Assessment of risk o f venous thromboembolism [facility] Start: 02-23-2023 Insertion of cathete r into peripheral vein [facility] Start: 02-23-2023 Measuring intake and output [facility] Start: 02-23-2023 Providing care accor ding to standard [facility] Start: 02-23-2023 Referral to occupati onal therapist [facility] Start: 02-23-2023 Referral to service [facility] Start: 02-23-2023 [facility] Start: 02-23-2023 Admission procedure [facility] Start: 02-23-2023 End: 02-24-2023 [facility] Start: 02-23-2023 Urine culture Urine Culture [facility] Start: 02-23-2023 Patient referral to dietitian [facility] Start: 01-05-2023 Covid-19 Vaccine () Covid-19 Vaccine () [facility] Start: 01-05-2023 Influenza vaccination [facility] Start: 06-15-2022 End: 08-15-2022 CBC panel - Blood by Automated count CBC Lab Routine Primary hypertension Expected: 06/15/2022, Expires: 08/15/2022 [facility] Work Phone: Comment on above: Expected: 06/15/2022 , Expires: 08/15/2022 Start: 06-15-2022 End: 08-15-2022 Comprehensive metabolic 2000 panel - Serum or Plasma COMP METABOLIC PANEL Lab Routine Hyperlipidemia LDL goal <130 Expected: 06/15/2022, Expires: 08/15/2022 [facility] Work Phone: Comment on above: Expected: 06/15/2022 , Expires: 08/15/2022 Start: 06-15-2022 End: 08-15-2022 Lipid 1996 panel - Serum or Plasma LIPID PANEL BASIC Lab Routine Hyperlipidemia LDL goal <130 Expected: 06/15/2022, Expires: 08/15/2022 [facility] [facility] Work Phone: Comment on above: Expected: 06/15/2022 , Expires: 08/15/2022 Start: 06-15-2022 End: 08-15-2022 Thyrotropin [Units/volume] in Serum or Plasma TSH BLD Lab Routine Hypothyroidism, acquired Expected: 06/15/2022, Expires: 08/15/2022 [facility] Work Phone: Comment on above: Expected: 06/15/2022 , Expires: 08/15/2022 Start: 05-13-2022 DIABETES SCREEN DIABETES SCREEN [facility] Start: 05-07-2022 ADVANCE DIRECTIVE DISCUSSION ADVANCE DIRECTIVE DISCUSSION [facility] Start: 03-26-2022 [facility] Work Phone: Start: 01-05-2022 Influenza vaccination [facility] Start: 08-09-2021 End: 10-09-2021 CBC panel - Blood by Automated count CBC Lab Routine Medication management Expected: 08/09/2021, Expires: 10/09/2021 [facility] Work Phone: Comment on above: Expected: 08/09/2021 , Expires: 10/09/2021 Start: 08-09-2021 COVID-19 VACCINE (4 - Booster for Pfizer series) COVID-19 VACCINE (4 - Booster for Pfizer series) [facility] Start: 08-09-2021 End: 10-09-2021 SCHEDULE LAB TESTING SCHEDULE LAB TESTING Lab Routine Expected: 08/09/2021, Expires: 10/09/2021 [facility] Work Phone: Comment on above: Expected: 08/09/2021 , Expires: 10/09/2021 Start: 05-07-2021 ADVANCE DIRECTIVE DISCUSSION ADVANCE DIRECTIVE DISCUSSION [facility] Start: 01-05-2021 Influenza vaccination INFLUENZA (#1) [facility] Start: 12-29-2020 COVID-19 VACCINE (3 - Booster for Pfizer series) COVID-19 VACCINE (3 - Booster for Pfizer series) [facility] Start: 02-20-2018 End: 02-20-2018 Appointment [facility] Work Phone: Start: 02-22-2017 End: 02-22-2017 Follow Up Appt 1 year Follow Up Appt 1 year [facility] Work Phone: Start: 02-22-2017 End: 02-22-2017 Follow Up Appt Other Follow Up Appt Other [facility] Work Phone: Start: 02-22-2017 End: 02-22-2017 PFM PFM [facility] Work Phone: Start: 06-29-2016 End: 12-30-2015 *Hepatic Function Panel *Hepatic Function Panel [facility] Work Phone: Start: 06-29-2016 End: 12-30-2015 Lipid 1996 panel *Lipid Profile CC PCP [facility] Work Phone: Start: 02-07-2016 End: 02-07-2016 Follow Up Appt 1 year Follow Up Appt 1 year [facility] Work Phone: Start: 02-07-2016 End: 02-07-2016 PFM PFM [facility] Work Phone: Start: 10-22-2015 End: 12-28-2015 Lipid 1996 panel *Lipid Profile CC PCP [facility] Work Phone: Start: 05-21-2015 Urine microalbumin profile [facility] Start: 04-06-2015 End: 04-22-2015 *Hepatic Function Panel *Hepatic Function Panel [facility] Work Phone: Start: 04-06-2015 End: 04-22-2015 Lipid 1996 panel *Lipid Profile CC PCP [facility] Work Phone: Start: 01-04-2015 End: 01-04-2015 Follow Up Appt 1 year Follow Up Appt 1 year [facility] Work Phone: Start: 01-04-2015 End: 01-04-2015 PFM PFM [facility] Work Phone: Start: 04-06-2014 End: 10-26-2014 *Hepatic Function Panel *Hepatic Function Panel [facility] Work Phone: Start: 04-06-2014 End: 10-26-2014 Lipid 1996 panel *Lipid Profile CC PCP [facility] Work Phone: Start: 10-02-2013 End: 10-10-2013 *Hepatic Function Panel *Hepatic Function Panel [facility] Work Phone: Start: 10-02-2013 End: 10-02-2013 Ecg routine ecg w/least 12 lds w/i&r EKG (In office) [facility] Work Phone: Start: 10-02-2013 End: 10-02-2013 Follow Up Appt 1 year Follow Up Appt 1 year [facility] Work Phone: Start: 10-02-2013 End: 10-10-2013 Lipid 1996 panel *Lipid Profile CC PCP [facility] Work Phone: Start: 10-02-2013 End: 10-02-2013 PFM PFM [facility] Work Phone: Start: 07-08-2012 End: 10-02-2013 48 hour holter monitor 48 hour holter monitor [facility] Work Phone: Start: 2012 RSV Vaccine (1 - 1-d ose 75+ series) RSV Vaccine (1 - 1-dose 75+ series) [facility] Start: 05-16-2012 End: 05-16-2012 Ecg routine ecg w/least 12 lds w/i&r EKG (In office) [facility] Work Phone: Start: 05-16-2012 End: 10-02-2013 Follow Up Appt 1 year Follow Up Appt 1 year [facility] Work Phone: Start: 05-16-2012 End: 10-02-2013 Follow Up Appt 6 months Follow Up Appt 6 months [facility] Work Phone: Start: 05-25-2011 End: 05-25-2011 Ecg routine ecg w/least 12 lds w/i&r EKG (In office) [facility] Work Phone: Start: 05-25-2011 End: 05-25-2011 Follow Up Appt 1 year Follow Up Appt 1 year [facility] Work Phone: Start: 08-31-2009 SHINGRIX VACCINE (2 of 3) LEMUS GRIX VACCINE (2 of 3) [facility] Start: 1997 RSV Vaccine (1 - 1-d ose 60+ series) RSV Vaccine (1 - 1-dose 60+ series) [facility] Bacteria identified in Urine by Culture Urine Culture [facility] Work Phone: End: 12-23-2023 ECG COMPLETE ECG COMPLETE ECG Routine Dyspnea, unspecified type 1 Occurrences starting 12/22/2022 until 12/23/2023 [facility] Work Phone: Comment on above: 1 Occurrences starti ng 12/22/2022 until 12/23/2023 In-vitro immunologic test [facility] 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 [facility] Patient Education [facility] Work Phone: Patient referral [facility] Work Phone: End: 11-30-2023 XR FOOT GENERAL 3V AP/LAT/OBL RIGHT XR FOOT GENERAL 3V AP/LAT/OBL RIGHT Radiology Routine Injury of right great toe, initial encounter 1 Occurrences starting 10/31/2022 until 11/30/2023 [facility] Work Phone: Comment on above: 1 Occurrences starti ng 10/31/2022 until 11/30/2023 XR FOOT GENERAL 3V AP/LAT/OBL RIGHT XR FOOT GENERAL 3V AP/LAT/OBL RIGHT Radiology Routine Injury of right great toe, initial encounter 10/31/2022 4:35 PM EDT [facility] Work Phone: [facility] Immunizations Immunization Date Immunization Notes Care Provider Fa cili 06-14-2021 Covid (Pfizer) Dr. José Miguel Frias Work Phone: [facility] 06-14-2021 influenza, high-dose , quadrivalent vaccine (FLUZONE HIGH DOSE QUADRIVALENT) José Miguel Frias MD Work Phone: [facility] Work Phone: 06-14-2021 influenza virus vacc ine, unspecified formulation José Miguel Frias MD Work Phone: [facility] 07-29-2020 COVID-19 vaccine, ag e 12+ yr (PFIZERBIONTECH - [facility]) Cecilio Swartz APRN.[facility] Work Phone: [facility] 07-08-2020 COVID-19 vaccine, ag e 12+ yr (PFIZER-BIONTECH - [facility]) Cecilio Swartz APRN.[facility] Work Phone: [facility] 01-15-2020 influenza, high-dose , quadrivalent vaccine (FLUZONE HIGH DOSE QUADRIVALENT) Cecilio Swartz APRN.[facility] Work Phone: [facility] 02-11-2019 Influenza, high dose seasonal Dr. José Miguel Frias MD Work Phone: [facility] 02-11-2019 influenza, high dose seasonal, preservative-free Cecilio Swartz APRN.[facility] Work Phone: [facility] 02-11-2018 Influenza, high dose seasonal Dr. José Miguel Frias MD Work Phone: [facility] 02-11-2018 influenza, high dose seasonal, preservative-free Cecilio Swartz APRN.[facility] Work Phone: [facility] 01-23-2017 Influenza, high dose seasonal Dr. José Miguel Frias MD Work Phone: [facility] 01-23-2017 influenza, high dose seasonal, preservative-free Cecilio Swartz APRN.[facility] Work Phone: [facility] 03-09-2016 Influenza, high dose seasonal Dr. José Miguel Frias MD Work Phone: [facility] 03-09-2016 influenza, high dose seasonal, preservative-free Cecilio Swartz APRN.[facility] Work Phone: [facility] 03-09-2016 pneumococcal conjuga te vaccine, 13 valent Cecilio Swartz APRN.[facility] Work Phone: [facility] 05-20-2015 tetanus and diphther ia toxoids, adsorbed, preservative free, for adult use (2 Lf of tetanus toxoid and 2 Lf of diphtheria toxoid) Dr. José Miguel Frias Work Phone: [facility] 05-20-2015 tetanus and diphther ia toxoids, adsorbed, preservative free, for adult use (5 Lf of tetanus toxoid and 2 Lf of diphtheria toxoid) Cecilio Swartz APRN.[facility] Work Phone: [facility] 02-15-2015 Influenza, high dose seasonal Dr. José Miguel Frias MD Work Phone: [facility] 02-15-2015 influenza, high dose seasonal, preservative-free Cecilio Swartz APRN.[facility] Work Phone: [facility] 02-12-2014 Influenza, high dose seasonal Dr. José Miguel Frias MD Work Phone: [facility] 02-12-2014 influenza, high dose seasonal, preservative-free Cecilio Swartz APRN.[facility] Work Phone: [facility] 03-18-2013 influenza virus vacc ine, unspecified formulation Cecilio Swartz APRN.[facility] Work Phone: [facility] 02-05-2012 influenza virus vacc ine, unspecified formulation Cecilio Blaabdulaziz CUELLO.[facility] Work Phone: [facility] 03-07-2011 influenza virus vacc ine, unspecified formulation Cecilio Swartz APRN.[facility] Work Phone: [facility] 03-08-2010 influenza virus vacc ine, unspecified formulation Cecilio Blaz [employer].[facility] Work Phone: [facility] 07-06-2009 zoster vaccine, live Cecilio Swartz APRN.[facility] Work Phone: [facility] 05-25-2009 novel influenza-H1N1 -09, preservative-free, injectable José Miguel Frias MD Work Phone: [facility] Work Phone: 01-25-2009 influenza virus vacc ine, unspecified formulation Cecilio Swartz APRN.[facility] Work Phone: [facility] Work Phone: 03-19-2008 influenza virus vacc ine, unspecified formulation Cecilio Swartz APRN.[facility] Work Phone: [facility] Work Phone: 03-11-2007 influenza virus vacc ine, unspecified formulation Cecilio Swartz APRN.[facility] Work Phone: [facility] 01-24-2007 pneumococcal polysaccharide vaccine, 23 valent Cecilio Swartz APRN.[facility] Work Phone: [facility] 03-20-2006 influenza virus vacc ine, unspecified formulation Cecilio Swartz APRN.[facility] Work Phone: [facility] Work Phone: 03-13-2005 influenza virus vacc ine, whole virus Cecilio Swartz APRN.[facility] Work Phone: [facility] Payers Date Payer Category Payer Self-pay [id number] 2018 Unknown [facility] [id number] 2018-Present [phone] [address] [place] [address] [facility] [id number] 2018 Unknown [id number] 2012 Medicare [id number] Medicare MEDICARE PART A B [id number] Unknown [id number] Unknown [id number] Unknown [id number] Unknown [id number] Unknown [id number] Unknown [id number] Unknown [id number] Unknown [id number] Unknown [id number] Unknown [id number] Unknown [id number] Unknown [id number] Unknown [id number] Unknown [id number] Social History Date Type Detail Facility Start: 06-14-2022 End: 04-11-2024 Tobacco smoking status NHIS Never smoked tobacco [facility] Start: 05-11-2021 End: 05-29-2023 Alcohol intake Current drinker of alcohol (finding) [facility] Start: 1935 Sex Assigned At Not on file [facility] Start: 03-26-2022 End: 02-23-2023 Tobacco smoking status VAIS Unknown if ever smoked [facility] Start: 1935 Sex Assigned At Female [facility] Start: 06-14-2022 Tobacco use and exposure Smokeless tobacco non-user [facility] Work Phone: Start: 09-08-2022 End: 11-22-2022 History of Social function [facility] Work Phone: Start: 09-08-2022 End: 11-22-2022 Tobacco use panel [facility] Work Phone: Adult Depression Screening Assessment 2 [facility] Work Phone: Medical Equipment Procedure Code Equipment Code Equipment Origin al Text Equipment Identifier Dates Plug Perfix Bard Medium Taper Polypropylene 1.55x1.3in Surgical - [id number] Start: 05-30-2016 Goals Date Patient Goal Desired Activity /State Personal health goal Personal health goal Functional Status Date Assessment Result Facility 02-25-2023 Functional status Chair;Bathroom Privileg [facility] Work Phone: Mental Status Date Assessment Result Facility 02-25-2023 Cognitive function Appropriate;Cooperativ e [facility] Work Phone: Clinical Notes 08-01-2017 to 10-06-2024 Telephone Encounter - Lina Berry LPN - 04/24/2024 11:05 AM ESTTelephone Encounter - Lina Berry LPN - 04/24/2024 11:05 AM Tammy Espinosa MA - 12/14/2023 8:40 AM EDT Note Date & Type Note Facility 10-06-2024 Radiology Diagnostic study note [facility] Services [address] [place] [address] [id number] Brain/Head without Contrast MR#: [id number] Acct: [id number] Name: CHRISTY FOFANA Rep #: [id number] : 1935 F 89 From: Twyla Ferreira MD PCP: Dr. José Miguel Frias MD Status: P RE ER Study:Brain/Head without Contrast Date of Exa m: 10/06/24 Exam# [id number] Ordering Dr: Lc Lo MD PROCEDURE: BRAIN/HEAD WITHOUT CONTRAST 10/06/2024 REASON FOR EXAM: HEAD INJURY TECHNIQUE: Head CT without intravenous contrast. Coronal and Sagittal reconstruction serieswere provided. One or more dose reduction techniques were used (e.g., Automated exposure control, adjustment of the mA and/or kV according to patient size, use of iterative reconstruction technique. RADIATION DOSE SUMMARY: CTDlvol: 45.0 mGy DLP: 813 mGycm COMPARISON: CT head 04/11/2024 FINDINGS: Brain: No acute intracranial hemorrhage, mass effect, or midline shift. Patchy hypodensity in the right frontal lobe, unchanged. CSF Spaces: Moderate generalized cerebral atrophy Sinuses/Mastoids: Clear at visualized levels Bones: No displaced calvarial fracture. Soft tissue debris in the external auditory canals, likely cerumen. Orbits: Prior cataract extraction bilaterally. CT/Brain/Head without Contrast IMPRESSION: No acute intracranial abnormality. Reading Location: [id number] CC: Dr. Lc Lo MD; Dr. José Miguel Frias MD ~ [facility] Therapist: Signed [facility] 04-24-2024 Telephone encount er Note PCP changed to in house Doctor. Lina Berry LPN [facility] 04-24-2024 Miscellaneous Notes Formattin g of this note might be different from the original. PCP changed to in house Doctor. Lina Berry LPN Patient's request for medication has been refused. See reason and notify patient. Requested Prescriptions Refused Prescriptions Disp Refills hydrOXYzine pamoate (VISTARIL) 25 mg capsule 1 capsule 0 Sig: Take 1 capsule by mouth three times a day as needed for anxiety. Refused By: JOSÉ MIGUEL FRIAS Reason for Refusal: Patient no longer under Prescriber care PCP Emmanuel Park DO Prescription Refill Information The patient has been identified by name and date of : Yes Caregiver verified no other encounters exist for this prescription request: Yes Caregiver confirmed with patient/requestor that no other refills are due, in the near future, with this provider at this time: Yes The last office visit in the department: 05/29/23 Does the patient have a future office visit with this provider/department: No Requested Prescriptions Pending Prescriptions Disp Refills hydrOXYzine pamoate (VISTARIL) 25 mg capsule 30 capsule 2 Sig: Take 1 capsule by mouth three times a day as needed for anxiety. Delfina Hernandez MA April 23, 2024 4:[address] [facility] Thais Aguirre [facility] is calling José Miguel Frias MD today to request a medication not on current med list: Disp Refills Start End hydrOXYzine pamoate (VISTARIL) 25 mg capsule 30 5 Patient has been identified by name and birthdate. Closing statement: Results or non-symptom based questions: Thank you for calling [facility], your call will be returned within the next business day. Niecy Naylorsec documented in this encounter [facility] 04-23-2024 Telephone encount er Note Patient's request for medication has been refused. See reason and notify patient. Requested Prescriptions Refused Prescriptions Disp Refills hydrOXYzine pamoate (VISTARIL) 25 mg capsule 1 capsule 0 Sig: Take 1 capsule by mouth three times a day as needed for anxiety. Refused By: JOSÉ MIGUEL FRIAS Reason for Refusal: Patient no longer under Prescriber care PCP Emmanuel Park DO [facility] 04-23-2024 Telephone encount er Note Prescription Refill Information The patient has been identified by name and date of : Yes Caregiver verified no other encounters exist for this prescription request: Yes Caregiver confirmed with patient/requestor that no other refills are due, in the near future, with this provider at this time: Yes The last office visit in the department: 05/29/23 Does the patient have a future office visit with this provider/department: No Requested Prescriptions Pending Prescriptions Disp Refills hydrOXYzine pamoate (VISTARIL) 25 mg capsule 30 capsule 2 Sig: Take 1 capsule by mouth three times a day as needed for anxiety. Delfina Hernandez MA April 23, 2024 4:08 PM [facility] 04-23-2024 Telephone encount er Note Daughter states that Christy is patient of in house doctors Dr. Park. Disregard refill requests. [facility] 04-23-2024 Miscellaneous Notes Formattin g of this note might be different from the original. Daughter states that Christy is patient of in house doctors Dr. Park. Disregard refill requests. Prescription Refill Information The patient has been identified by name and date of : Yes Caregiver verified no other encounters exist for this prescription request: Yes Caregiver confirmed with patient/requestor that no other refills are due, in the near future, with this provider at this time: Yes NOTE: patient lives at assisted living [facility] The last office visit in the department: 05/29/2023 Does the patient have a future office visit with this provider/department: No Requested Prescriptions Pending Prescriptions Disp Refills acetaminophen (TYLENOL EXTRA STRENGTH) 500 mg tablet 90 tablet 2 Sig: Take 1 tablet by mouth three times a day. aspirin, enteric coated (ECOTRIN LOW STRENGTH) 81 mg EC tablet 30 tablet 11 Sig: Take 1 tablet by mouth once daily. levothyroxine (SYNTHROID) 88 mcg tablet 30 tablet 11 Sig: TAKE ONE TABLET BY MOUTH EVERY DAY ON EMPTY STOMACH multivitamin tablet 30 tablet 11 Sig: Take 1 tablet by mouth once daily. rivastigmine (EXELON) 4.6 mg/24 hour patch 30 Patch 5 Sig: Apply 1 Patch as directed once daily. Per psychiatry. simvastatin (ZOCOR) 20 mg tablet 30 tablet 11 Sig: Take 1 tablet by mouth daily at bedtime. spironolactone (ALDACTONE) 25 mg tablet 30 tablet 2 Sig: Take 1 tablet by mouth once daily. Niecy Avilez April 23, 2024 2:23 PM documented in this encounter [facility] 04-23-[address] Note [facility] is calling José Miguel Frias MD today to request a medication not on current med list: Disp Refills Start End hydrOXYzine pamoate (VISTARIL) 25 mg capsule 30 5 Patient has been identified by name and birthdate. Closing statement: Results or non-symptom based questions: Thank you for calling [facility], your call will be returned within the next business day. Niecy Avilez [facility] 04-23-2024 Telephone encount er Note Prescription Refill Information The patient has been identified by name and date of : Yes Caregiver verified no other encounters exist for this prescription request: Yes Caregiver confirmed with patient/requestor that no other refills are due, in the near future, with this provider at this time: Yes NOTE: patient lives at assisted living [facility] The last office visit in the department: 05/29/2023 Does the patient have a future office visit with this provider/department: No Requested Prescriptions Pending Prescriptions Disp Refills acetaminophen (TYLENOL EXTRA STRENGTH) 500 mg tablet 90 tablet 2 Sig: Take 1 tablet by mouth three times a day. aspirin, enteric coated (ECOTRIN LOW STRENGTH) 81 mg EC tablet 30 tablet 11 Sig: Take 1 tablet by mouth once daily. levothyroxine (SYNTHROID) 88 mcg tablet 30 tablet 11 Sig: TAKE ONE TABLET BY MOUTH EVERY DAY ON EMPTY STOMACH multivitamin tablet 30 tablet 11 Sig: Take 1 tablet by mouth once daily. rivastigmine (EXELON) 4.6 mg/24 hour patch 30 Patch 5 Sig: Apply 1 Patch as directed once daily. Per psychiatry. simvastatin (ZOCOR) 20 mg tablet 30 tablet 11 Sig: Take 1 tablet by mouth daily at bedtime. spironolactone (ALDACTONE) 25 mg tablet 30 tablet 2 Sig: Take 1 tablet by mouth once daily. Niecy Avilez April 23, 2024 2:23 PM [facility] 12-19-2023 Telephone encount er Note POPULATION HEALTH NAVIGATION OUTREACH Action/FYI Reason for Outreach Care Gap/HCC or Scheduling Wellness Visits Care Gaps due: Medicare Annual Wellness Visit Patient Contacted: Patient is currently at [facility], she is seeing in-house Dr. Emmanuel Park Navigation Signature: Lina Berry LPN December 19, 2023 4:51 PM [facility] 12-19-2023 Miscellaneous Notes Formattin g of this note is different from the original. POPULATION HEALTH NAVIGATION OUTREACH Action/FYI Reason for Outreach Care Gap/HCC or Scheduling Wellness Visits Care Gaps due: Medicare Annual Wellness Visit Patient Contacted: Patient is currently at [facility], she is seeing in-house Dr. Emmanuel Park Navigation Signature: Lina Berry LPN December 19, 2023 4:51 PM documented in this encounter [facility] 12-19-2023 Note HNO ID: [id number] Author: ODALIS BRIGGS MA Service: ? Author Type: Sales/Marketing Type: Progress Notes Filed: 12/19/2023 08:49 Note Text: POPULATION HEALTH NAVIGATION OUTREACH Action/FYI Letter received and sent to be mailed. Navigation Signature: Odalis Briggs Population Health Navigator December 19, 2023 8:49 AM [facility] 12-14-2023 Note HNO ID: [id number] Author: TAMMY ELLIS MA Service: ? Author Type: Sales/Marketing Type: Progress Notes Filed: 12/14/2023 11:14 Note Text: POPULATION HEALTH NAVIGATION OUTREACH Action/FYI Patient is on [facility] CURRENT [employer]OST[employer] Workbench list for below and needs appointment to address: RSV Vaccine(1 - 1-dose 60+ series) Shingrix Vaccine(2 of 3) DTaP,Tdap,Td Vaccine(1 - Tdap) Covid-19 Vaccine( season) Advance Directive Discussion No results found for: HBA1C Patient due for: Medicare Annual Wellness Visit Advance Directives Attempted to reach patient, voicemail full, unable to leave message. No mychart available. Sent letter. AD already on file Reason for Outreach Care Gap/HCC or Scheduling Wellness Visits Care Gaps due: Medicare Annual Wellness Visit Patient Contacted: Unable or unnecessary to reach patient: Unable to leave message Letter mailed HCC related Navigation Signature: Tammy Ellis MA December 14, 2023 8:51 AM [facility] 12-14-2023 History of Presen t illness Narrative POPULATION HEALTH NAVIGATION OUTREACH Action/FYI Patient is on [facility] CURRENT [facility] Workbenc list for below and needs appointment to address: RSV Vaccine(1 - 1-dose 60+ series) Shingrix Vaccine(2 of 3) DTaP,Tdap,Td Vaccine(1 - Tdap) Covid-19 Vaccine() Advance Directive Discussion No results found for: HBA1C Patient due for: Medicare Annual Wellness Visit Advance Directives Attempted to reach patient, voicemail full, unable to leave message. No mychart available. Sent letter. AD already on file Reason for Outreach Care Gap/HCC or Scheduling Wellness Visits Care Gaps due: Medicare Annual Wellness Visit Patient Contacted: Unable or unnecessary to reach patient: Unable to leave message Letter mailed HCC related Navigation Signature: Tammy Ellis MA December 14, 2023 8:51 AM documented in this encounter [facility] 12-14-2023 Note Patient Outreach (TINA MUSTAFA) CHRISTY FOFANA ([id number]) 1935 F Date Time Provider Department 12/14/23 TAMMY ELILS During your visit today, we recorded the following information about you: Tammy Ellis MA 12/14/2023 11:14 AM Signed POPULATION HEALTH NAVIGATION OUTREACH Action/FYI Patient is on [facility] CURRENT [employer] Workbench list for below and needs appointment to address: RSV Vaccine(1 - 1-dose 60+ series) Shingrix Vaccine(2 of 3) DTaP,Tdap,Td Vaccine(1 - Tdap) Covid-19 Vaccine(4 - season) Advance Directive Discussion No results found for: HBA1C Patient due for: Medicare Annual Wellness Visit Advance Directives Attempted to reach patient, voicemail full, unable to leave message. No mychart available. Sent letter. AD already on file Reason for Outreach Care Gap/HCC or Scheduling Wellness Visits Care Gaps due: Medicare Annual Wellness Visit Patient Contacted: Unable or unnecessary to reach patient: Unable to leave message Letter mailed HCC related Navigation Signature: Tammy Ellis MA December 14, 2023 8:51 AM Odalis Briggs MA 12/19/2023 8:49 AM Signed POPULATION HEALTH NAVIGATION OUTREACH Action/FYI Letter received and sent to be mailed. Navigation Signature: Odalis Briggs Population Health Navigator December 19, 2023 8:49 AM Allergies As of Date: 12/14/2023 Noted Allergy Reaction NOVACAINE (PROCAINE) 03/01/2011 1 - Mental Status Change Comments: Laughing and crying constantly- cannot tolerate any rohit AUGMENTIN (AMOXICILLIN-POT CLAVUL*10/24/2019 6 - Diarrhea CLINDAMYCIN 09/29/2008 6 - Diarrhea Comments: Claims made her nauseated and had diarrhea DILAUDID (HYDROMORPHONE (BULK)) 07/05/2005 DOXYCYCLINE MONOHYDRATE 11/08/2016 8 - GI Upset LATEX 03/16/2023 14 - Other: See Comments Comments: red, swelling, blisters LIPITOR (ATORVASTATIN CALCIUM) 06/07/2005 Comments: myalgia LISINOPRIL 07/28/2008 Comments: cough MORPHINE 12/30/2004 PENICILLINS 12/30/2004 POTASSIUM 09/19/2007 Comments: diarrhea SULFA (SULFONAMIDE ANTIBIOTICS) 12/07/2006 4 - Hives Comments: Pt states that she has an allergy to sulfa TETRACYCLINE 12/30/2004 Date Reviewed: 05/29/2023 Reviewed by: Mckenzie Funk APRN.MOLD MAKER - Fully Assessed Reason for Visit: Population Health Navigation Outreach [3910] Cmt: [facility]SA Prescriptions as of 12/19/2023 - furosemide (LASIX) 40 mg tablet Take 1 tablet by mouth once daily for 7 days. - betamethasone dipropionate, augmented (DIPROLENE) 0.05 % cream Apply to bilateral lower legs twice a day for two weeks. Then use as needed for any flare ups (twice a day for two weeks) - spironolactone (ALDACTONE) 25 mg tablet Take 1 tablet by mouth once daily. - simvastatin (ZOCOR) 20 mg tablet Take 1 tablet by mouth daily at bedtime. - levothyroxine (SYNTHROID) 88 mcg tablet TAKE ONE TABLET BY MOUTH EVERY DAY ON EMPTY STOMACH - aspirin, enteric coated (ECOTRIN LOW STRENGTH) 81 mg EC tablet Take 1 tablet by mouth once daily. - multivitamin tablet Take 1 tablet by mouth once daily. - rivastigmine (EXELON) 4.6 mg/24 hour patch Apply 1 Patch as directed once daily. Per psychiatry. - QUEtiapine (SEROQUEL) 25 mg tablet Take 1 tablet by mouth two times a day. Per psychiatry. - FLUoxetine (PROZAC) 20 mg capsule Take 1 capsule by mouth once daily. Per psychiatry. - loperamide HCl (IMODIUM) 2 mg tab Take 2 mg by mouth as needed. - acetaminophen (TYLENOL EXTRA STRENGTH) 500 mg tablet Take 1 tablet by mouth three times daily. 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] 02/12/2006 02/12/2013 Dysmetabolic syndrome X [E88.810] 09/18/2006 06/14/2022 Disorders of bursae and tendons in shoulder reg*09/18/2006 09/01/2014 Hypothyroidism, acquired [E03.9] Venous (peripheral) insufficiency [I87.2] 10/29/2007 Benign neoplasm of eyelid, including canthus [D*08/10/2008 02/12/2013 Other seborrheic dermatitis [L21.8] 08/10/2008 02/12/2013 Varicose veins of lower extremities with inflam*08/10/2008 09/01/2014 Irritable bowel syndrome [K58.9] 08/30/2010 06/14/2022 Osteoarthritis of knee [M17.9] 08/30/2010 06/14/2022 Ganglion of tendon [M67.40] 08/30/2010 09/01/2014 Melanocytic Nevus of trunk: mid lower back: irr*10/05/2010 09/01/2014 Atypical(?) nevus of mid lower back [D22.5] 10/05/2010 09/01/2014 Diverticulosis of colon (without mention of hem*10/25/2010 06/14/2022 Liver nodule [K76.89] 03/04/2012 06/14/2022 Adrenal adenoma [D35.00] 03/04/2012 06/14/2022 Eosi (more content not included)... [facility] 10-09-2023 Note HNO ID: [id number] Author: TAMMY ELLIS MA Service: ? Author Type: Sales/Marketing Type: Progress Notes Filed: 10/09/2023 08:53 Note Text: POPULATION HEALTH NAVIGATION OUTREACH Action/FYI Patient is on [facility] CURRENT [employer] Work[employer] list for below and needs appointment to address: RSV Vaccine(1 - 1-dose 60+ series) Shingrix Vaccine(2 of 3) DTaP,Tdap,Td Vaccine(1 - Tdap) Covid-19 Vaccine(4 - season) Advance Directive Discussion No results found for: HBA1C Patient due for: Medicare Annual Wellness Visit Advance Directives Spoke to patient daughter Anya (NORMA) Scheduled with PCP team. Noted upcoming appointment to address due care gaps and HCC gap closure. AD already on file Reason for Outreach Care Gap/HCC or Scheduling Wellness Visits Care Gaps due: Medicare Annual Wellness Visit Patient Contacted: Spoke to patient/parent/or legal guardian Patient identified by name and : Yes Care Gap/HCC/Scheduling Wellness actions taken: Patient scheduled/pended labs: Medicare Annual Wellness Visit 12/12/2023 in [facility] with MCKENZIE FUNK - Annual Medicare Wellness, Please address due care gaps and HCC gap closure HCC related Navigation Signature: Tammy Ellis MA October 09, 2023 7:16 AM [facility] 10-09-2023 History of Presen t illness Narrative POPULATION HEALTH NAVIGATION OUTREACH Action/FYI Patient is on [facility] CURRENT [employer] Work[employer] list for below and needs appointment to address: RSV Vaccine(1 - 1-dose 60+ series) Shingrix Vaccine(2 of 3) DTaP,Tdap,Td Vaccine(1 - Tdap) Covid-19 Vaccine( season) Advance Directive Discussion No results found for: HBA1C Patient due for: Medicare Annual Wellness Visit Advance Directives Spoke to patient daughter Anya (NORMA) Scheduled with PCP team. Noted upcoming appointment to address due care gaps and HCC gap closure. AD already on file Reason for Outreach Care Gap/HCC or Scheduling Wellness Visits Care Gaps due: Medicare Annual Wellness Visit Patient Contacted: Spoke to patient/parent/or legal guardian Patient identified by name and : Yes Care Gap/HCC/Scheduling Wellness actions taken: Patient scheduled/pended labs: Medicare Annual Wellness Visit 12/12/2023 in [facility] with MCKENZIE FUNK - Annual Medicare Wellness, Please address due care gaps and HCC gap closure HCC related Navigation Signature: Tammy Ellis MA October 09, 2023 7:16 AM documented in this encounter [facility] 10-09-2023 Note Patient Outreach (NE TNAV) BRIGIDOCHRISTY ([id number]) 1935 F Date Time Provider Department 10/09/23 TAMMY ELLIS During your visit today, we recorded the following information about you: Tammy Ellis MA 10/09/2023 8:53 AM Signed POPULATION HEALTH NAVIGATION OUTREACH Action/ Patient is on [facility] CURRENT [employer] Work[employer] list for below and needs appointment to address: RSV Vaccine(1 - 1-dose 60+ series) Shingrix Vaccine(2 of 3) DTaP,Tdap,Td Vaccine(1 - Tdap) Covid-19 Vaccine( season) Advance Directive Discussion No results found for: HBA1C Patient due for: Medicare Annual Wellness Visit Advance Directives Spoke to patient daughter Anya (POA) Scheduled with PCP team. Noted upcoming appointment to address due care gaps and HCC gap closure. AD already on file Reason for Outreach Care Gap/HCC or Scheduling Wellness Visits Care Gaps due: Medicare Annual Wellness Visit Patient Contacted: Spoke to patient/parent/or legal guardian Patient identified by name and : Yes Care Gap/HCC/Scheduling Wellness actions taken: Patient scheduled/pended labs: Medicare Annual Wellness Visit 12/12/2023 in [facility] with MCKENZIE FUNK - Annual Medicare Wellness, Please address due care gaps and HCC gap closure HCC related Navigation Signature: Tammy Ellis MA October 09, 2023 7:16 AM Allergies As of Date: 10/09/2023 Noted Allergy Reaction NOVACAINE (PROCAINE) 03/01/2011 1 - Mental Status Change Comments: Laughing and crying constantly- cannot tolerate any rohit AUGMENTIN (AMOXICILLIN-POT CLAVUL*10/24/2019 6 - Diarrhea CLINDAMYCIN 09/29/2008 6 - Diarrhea Comments: Claims made her nauseated and had diarrhea DILAUDID (HYDROMORPHONE (BULK)) 07/05/2005 DOXYCYCLINE MONOHYDRATE 11/08/2016 8 - GI Upset LATEX 03/16/2023 14 - Other: See Comments Comments: red, swelling, blisters LIPITOR (ATORVASTATIN CALCIUM) 06/07/2005 Comments: myalgia LISINOPRIL 07/28/2008 Comments: cough MORPHINE 12/30/2004 PENICILLINS 12/30/2004 POTASSIUM 09/19/2007 Comments: diarrhea SULFA (SULFONAMIDE ANTIBIOTICS) 12/07/2006 4 - Hives Comments: Pt states that she has an allergy to sulfa TETRACYCLINE 12/30/2004 Date Reviewed: 05/29/2023 Reviewed by: Mckenzie Funk, PRESS SET UP.MOLD MAKER - Fully Assessed Reason for Visit: Population Health Navigation Outreach [3910] Cmt: [facility] CURRENT [employer] workbench - AWV, Care gaps, HCC gap closure - [place] [facility]SA Prescriptions as of 12/19/2023 - furosemide (LASIX) 40 mg tablet Take 1 tablet by mouth once daily for 7 days. - betamethasone dipropionate, augmented (DIPROLENE) 0.05 % cream Apply to bilateral lower legs twice a day for two weeks. Then use as needed for any flare ups (twice a day for two weeks) - spironolactone (ALDACTONE) 25 mg tablet Take 1 tablet by mouth once daily. - simvastatin (ZOCOR) 20 mg tablet Take 1 tablet by mouth daily at bedtime. - levothyroxine (SYNTHROID) 88 mcg tablet TAKE ONE TABLET BY MOUTH EVERY DAY ON EMPTY STOMACH - aspirin, enteric coated (ECOTRIN LOW STRENGTH) 81 mg EC tablet Take 1 tablet by mouth once daily. - multivitamin tablet Take 1 tablet by mouth once daily. - rivastigmine (EXELON) 4.6 mg/24 hour patch Apply 1 Patch as directed once daily. Per psychiatry. - QUEtiapine (SEROQUEL) 25 mg tablet Take 1 tablet by mouth two times a day. Per psychiatry. - FLUoxetine (PROZAC) 20 mg capsule Take 1 capsule by mouth once daily. Per psychiatry. - loperamide HCl (IMODIUM) 2 mg tab Take 2 mg by mouth as needed. - acetaminophen (TYLENOL EXTRA STRENGTH) 500 mg tablet Take 1 tablet by mouth three times daily. 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] 02/12/2006 02/12/2013 Dysmetabolic syndrome X [E88.810] 09/18/2006 06/14/2022 Disorders of bursae and tendons in shoulder reg*09/18/2006 09/01/2014 Hypothyroidism, acquired [E03.9] Venous (peripheral) insufficiency [I87.2] 10/29/2007 Benign neoplasm of eyelid, including canthus [D*08/10/2008 02/12/2013 Other seborrheic dermatitis [L21.8] 08/10/2008 02/12/2013 Varicose veins of lower extremities with inflam*08/10/2008 09/01/2014 Irritable bowel syndrome [K58.9] 08/30/2010 06/14/2022 Osteoarthritis of knee [M17.9] 08/30/2010 06/14/2022 Ganglion of tendon [M67.40] 08/30/2010 09/01/2014 Melanocytic Nevus of trunk: mid lower back: irr*10/05/2010 09/01/2014 Atypical(?) nevus of mid lower back [D22.5] 10/05/2010 09/01/2014 Diverticulosis of colon (without mention of hem* (more content not included)... [facility] 08-30-2023 Note HNO ID: [id number] Author: TAMMY ELLIS MA Service: ? Author Type: Sales/Marketing Type: Progress Notes Filed: 08/30/2023 11:26 Note Text: POPULATION HEALTH NAVIGATION OUTREACH Action/FYI Patient is on [facility] CURRENT [employer] Work[employer] list for below and needs appointment to address: RSV Vaccine(1 - -dose 60+ series) Covid-19 Vaccine( season) Advance Directive Discussion No results found for: HBA1C Patient due for: Medicare Annual Wellness Visit Advance Directives Left message for patient to call back. No mychart available. AD already on file Reason for Outreach Care Gap/HCC or Scheduling Wellness Visits Care Gaps due: Medicare Annual Wellness Visit Patient Contacted: Unable or unnecessary to reach patient: Left message HCC related Navigation Signature: Tammy Ellis MA August 30, 2023 7:28 AM [facility] 08-30-2023 History of Presen t illness Narrative POPULATION HEALTH NAVIGATION OUTREACH Action/FYI Patient is on [facility] CURRENT ROST Workbench list for below and needs appointment to address: RSV Vaccine(1 - 1-dose 60+ series) Covid-19 Vaccine( season) Advance Directive Discussion No results found for: HBA1C Patient due for: Medicare Annual Wellness Visit Advance Directives Left message for patient to call back. No mychart available. AD already on file Reason for Outreach Care Gap/HCC or Scheduling Wellness Visits Care Gaps due: Medicare Annual Wellness Visit Patient Contacted: Unable or unnecessary to reach patient: Left message HCC related Navigation Signature: Tammy Ellis MA August 30, 2023 7:28 AM documented in this encounter [facility] 08-30-2023 Note Patient Outreach (NE TNAV) CHRISTY FOFANA ([id number]) 1935 F Date Time Provider Department 08/30/23 TAMMY ELLIS During your visit today, we recorded the following information about you: Tammy Ellis MA 08/30/2023 11:26 AM Signed POPULATION HEALTH NAVIGATION OUTREACH Action/FYI Patient is on [facility] CURRENT [employer] Work[employer] list for below and needs appointment to address: RSV Vaccine(1 - 1-dose 60+ series) Covid-19 Vaccine( season) Advance Directive Discussion No results found for: HBA1C Patient due for: Medicare Annual Wellness Visit Advance Directives Left message for patient to call back. No mychart available. AD already on file Reason for Outreach Care Gap/HCC or Scheduling Wellness Visits Care Gaps due: Medicare Annual Wellness Visit Patient Contacted: Unable or unnecessary to reach patient: Left message HCC related Navigation Signature: Tammy Ellis MA August 30, 2023 7:28 AM Allergies As of Date: 08/30/2023 Noted Allergy Reaction NOVACAINE (PROCAINE) 03/01/2011 1 - Mental Status Change Comments: Laughing and crying constantly- cannot tolerate any rohit AUGMENTIN (AMOXICILLIN-POT CLAVUL*10/24/2019 6 - Diarrhea CLINDAMYCIN 09/29/2008 6 - Diarrhea Comments: Claims made her nauseated and had diarrhea DILAUDID (HYDROMORPHONE (BULK)) 07/05/2005 DOXYCYCLINE MONOHYDRATE 11/08/2016 8 - GI Upset LATEX 03/16/2023 14 - Other: See Comments Comments: red, swelling, blisters LIPITOR (ATORVASTATIN CALCIUM) 06/07/2005 Comments: myalgia LISINOPRIL 07/28/2008 Comments: cough MORPHINE 12/30/2004 PENICILLINS 12/30/2004 POTASSIUM 09/19/2007 Comments: diarrhea SULFA (SULFONAMIDE ANTIBIOTICS) 12/07/2006 4 - Hives Comments: Pt states that she has an allergy to sulfa TETRACYCLINE 12/30/2004 Date Reviewed: 05/29/2023 Reviewed by: Mckenzie Funk, PRESS SET UP.MOLD MAKER - Fully Assessed Reason for Visit: Population Health Navigation Outreach [3910] Cmt: [facility] CURRENT [employer]OSTER workbench - AWV, Care gaps, HCC gap closure - [place] [facility] Prescriptions as of 08/30/2023 - furosemide (LASIX) 40 mg tablet Take 1 tablet by mouth once daily for 7 days. - betamethasone dipropionate, augmented (DIPROLENE) 0.05 % cream Apply to bilateral lower legs twice a day for two weeks. Then use as needed for any flare ups (twice a day for two weeks) - spironolactone (ALDACTONE) 25 mg tablet Take 1 tablet by mouth once daily. - simvastatin (ZOCOR) 20 mg tablet Take 1 tablet by mouth daily at bedtime. - levothyroxine (SYNTHROID) 88 mcg tablet TAKE ONE TABLET BY MOUTH EVERY DAY ON EMPTY STOMACH - aspirin, enteric coated (ECOTRIN LOW STRENGTH) 81 mg EC tablet Take 1 tablet by mouth once daily. - multivitamin tablet Take 1 tablet by mouth once daily. - rivastigmine (EXELON) 4.6 mg/24 hour patch Apply 1 Patch as directed once daily. Per psychiatry. - QUEtiapine (SEROQUEL) 25 mg tablet Take 1 tablet by mouth two times a day. Per psychiatry. - FLUoxetine (PROZAC) 20 mg capsule Take 1 capsule by mouth once daily. Per psychiatry. - loperamide HCl (IMODIUM) 2 mg tab Take 2 mg by mouth as needed. - acetaminophen (TYLENOL EXTRA STRENGTH) 500 mg tablet Take 1 tablet by mouth three times daily. 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] 02/12/2006 02/12/2013 Dysmetabolic syndrome X [E88.810] 09/18/2006 06/14/2022 Disorders of bursae and tendons in shoulder reg*09/18/2006 09/01/2014 Hypothyroidism, acquired [E03.9] Venous (peripheral) insufficiency [I87.2] 10/29/2007 Benign neoplasm of eyelid, including canthus [D*08/10/2008 02/12/2013 Other seborrheic dermatitis [L21.8] 08/10/2008 02/12/2013 Varicose veins of lower extremities with inflam*08/10/2008 09/01/2014 Irritable bowel syndrome [K58.9] 08/30/2010 06/14/2022 Osteoarthritis of knee [M17.9] 08/30/2010 06/14/2022 Ganglion of tendon [M67.40] 08/30/2010 09/01/2014 Melanocytic Nevus of trunk: mid lower back: irr*10/05/2010 09/01/2014 Atypical(?) nevus of mid lower back [D22.5] 10/05/2010 09/01/2014 Diverticulosis of colon (without mention of hem*10/25/2010 06/14/2022 Liver nodule [K76.89] 03/04/2012 06/14/2022 Adrenal adenoma [D35.00] 03/04/2012 06/14/2022 Eosinophilic colitis [K52.82] 06/10/2012 05/11/2021 Actinic skin damage [L57.8] 08/23/2012 09/01/2014 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 [facility] 05-29-2023 Note HNO ID: [id number] Author: MCKENZIE FUNK APRN.MOLD MAKER Service: ? Author Type: Nurse Practitioner Type: Progress Notes Filed: 05/29/2023 15:06 Note Text: CC: Patient presents with: bilateral lower extremity edema HPI Christy Fofana is a 87 year old female, living in an assisted living facility, who presents today with her daughter, for chronic bilateral lower leg erythema and swelling with worsening over the past two weeks. The facility and family were concerned about a possible infection due to not only the worsening erythema and swelling but also blisters and seeping. She has a history of cellulitis and venous stasis dermatitis. Previously treated with Kenalog cream. Daughter is unsure how consistently the nursing staff has been applying this. Patient has also been prescribed compression socks and wraps in the past but is intolerant to both and refuses to wear. She denies sitting for long periods and describes being on her feet much of the day. Patient denies leg pain but are tender to thetouch. No itching. Her activities of daily living have not been affected and she states, I am here because everyone else is worried about it. Review of Systems Constitutional: Negative for activity change, chills, fatigue and fever. Respiratory: Negative for cough, chest tightness and shortness of breath. Cardiovascular: Positive for leg swelling. Negative for chest pain and palpitations. PAST MEDICAL HISTORY Diagnosis Date Adrenal adenoma 03/04/2012 Anxiety state, unspecified 07/30/2008 DDD (degenerative disc disease), lumbar 10/08/2018 Dementia with behavioral disturbance (HCC) 06/14/2022 Diverticulosis of colon (without mention of hemorrhage) Dysmetabolic syndrome X 09/18/2006 Enthesopathy of hip region 09/18/2006 Eosinophilic colitis 06/10/2012 Essential hypertension, benign Facet arthritis, degenerative, lumbar spine 10/08/2018 Hyperlipidemia 08/06/2012 Hyperlipidemia LDL goal <130 12/16/2015 Hypertension 11/26/2017 Hypothyroidism, acquired Irritable bowel syndrome Left inguinal hernia 05/21/2016 Liver nodule 03/04/2012 Major depressive disorder with current active episode 06/14/2022 Mitral valve disorders 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 Osteoarthritis of knee 08/30/2010 Other and unspecified hyperlipidemia Other specified acquired hypothyroidism Paranoid delusion (HCC) 05/05/2022 Premature atrial beat Premature ventricular beat Radiculopathy of lumbar region 11/04/2018 Rotator cuff syndrome 04/05/2010 Shortness of breath Stasis dermatitis of both legs 08/01/2017 Venous (peripheral) insufficiency 10/29/2007 PAST SURGICAL HISTORY Procedure Laterality Date ANESTH OPEN/SURG ARTHRS TOTAL KNEE ARTHROPLASTY b/l knee replacement CHOLECYSTECTOMY sometime in the late 1979's COLONOSCOPY FLX DX W/COLLJ SPEC WHEN PFRMD 8 years ago Colonoscopy COLONOSCOPY FLX DX W/COLLJ SPEC WHEN PFRMD 05/14/2012 Colonoscopy COLONOSCOPY W/BIOPSY SINGLE/MULTIPLE 10/25/10 PAST SURGICAL HISTORY OF 1969 vaginal hysterectomy RPR 1ST INGUN HRNA AGE 7 YRS/> REDUCIBLE Left 05/30/2016 ALLERGIES Novacaine [Procaine], Augmentin [Amoxicillin-Pot Clavulanate], Clindamycin, Dilaudid [Hydromorphone (Bulk)], Doxycycline Monohydrate, Latex, Lipitor [Atorvastatin Calcium], Lisinopril, Morphine, Penicillins, Potassium, Sulfa (Sulfonamide Antibiotics), and Tetracycline MEDICATIONS spironolactone (ALDACTONE) 25 mg tablet Take 1 tablet by mouth once daily. simvastatin (ZOCOR) 20 mg tablet Take 1 tablet by mouth daily at bedtime. levothyroxine (SYNTHROID) 88 mcg tablet TAKE ONE TABLET BY MOUTH EVERY DAY ON EMPTY STOMACH aspirin, enteric coated (ECOTRIN LOW STRENGTH) 81 mg EC tablet Take 1 tablet by mouth once daily. multivitamin tablet Take 1 tablet by mouth once daily. rivastigmine (EXELON) 4.6 mg/24 hour patch Apply 1 Patch as directed once daily. Per psychiatry. QUEtiapine (SEROQUEL) 25 mg tablet Take 1 tablet by mouth two times a day. Per psychiatry. FLUoxetine (PROZAC) 20 mg capsule Take 1 capsule by mouth once daily. Per psychiatry. loperamide HCl (IMODIUM) 2 mg tab Take 2 mg by mouth as needed. triamcinolone acetonide (KENALOG) 0.1 % cream Apply 1 application to affected area twice daily. Apply sparingly to leg areas for rash/itching. acetaminophen (TYLENOL EXTRA STRENGTH) 500 mg tablet Take 1 tablet by mouth three times daily. FAMILY HISTORY Problem Relation Age of Onset Heart Father Cancer Father kidney Heart Sister mitral valve prolapse Cancer Maternal Aunt breast cancer Breast Cancer Paternal Aunt Cancer Paternal Grandfather stomach Diabetes Paternal Grandmother Diabetes Sister Diabetes Brother Social History Tobacco Use Smoking status: Never Smokeless tobacco: Never Vaping Use Vaping Use: Never used Substance Use Topics Alcohol use: Yes Comment: red wine occasionally- two times q year Drug use: No BP 146/78 Pulse 91 T (more content not included)... [facility] 04-12-2023 Miscellaneous Notes Formattin g of this note might be different from the original. Fax from [facility] for refills.asking for refill for asa 81 mg daily and multivitamin daily documented in this encounter [facility] 04-10-2023 Miscellaneous Notes Formattin g of this note might be different from the original. Form has been faxed back Fax request for refill of spironolactone received from long term received. Patient had been placed on spironolactone diuretic for lower extremity swelling previously. Given refill for 1 additional month. Can reassess for ongoing need at upcoming visit with PCP April 19, 2023. documented in this encounter [facility] 03-26-2023 Miscellaneous Notes Formattin g of this note might be different from the original. Noted. Kristen [facility] Nurse calling. States they received referral for pt to have Nursing for leg cellulitis. Kristen states she saw patient this past Sunday and pt has no redness to legs, no open areas, no increased warmth to legs, and no s/sx cellulitis at this time. They will not be admitting pt to Nursing services at this time. Pt lives in memory care unit at [facility] and the nurses there have been educated to watch for s/sx of cellulitis. Pt has dementia and can be noncompliant with leg wraps and elevation. Breanne Boggs, RN documented in this encounter [facility] 03-23-2023 Miscellaneous Notes Formattin g of this note might be different from the original. Fax from pharmacy asking for refill. documented in this encounter [facility] 03-22-2023 Miscellaneous Notes Formattin g of this note might be different from the original. Spoke with JARVIS Arnold @ [facility]. Given message from provider's office. He verbalizes understanding. Rosa M Londono RN [place] Clayton, PT @ [facility] calling with update. PT will see patient once next week for re-evaluation. Clayton is asking for order for nursing evaluation/treat to monitor patient's cellulitis. Please call him @ [phone] with verbal okay. Rosa M Londono, RN documented in this encounter [facility] 03-22-2023 Miscellaneous Notes Formattin g of this note might be different from the original. Maria Luisa, nurse At [facility] returning call. Message below reviewed with Maria Luisa and she verbalized understanding. Breanne Boggs RN If loose stools and not tolerant of potassium and SNF not giving these medications will change to spironolactone as she needs edema reduced to decrease her pain and heal her legs. Start tomorrow morning. So discontinued Lasix and potassium and start spironolactone. Please let SNF know. This was not my understanding at her last visit, SO at visit did not know of potassium intolerance when asked. Called [facility]. Maria Luisa has left for the day and night nurse is not available at this time, message will be given to night nurse to return our call when available. So if I am reading this correctly they are not treating her with the diuretic or potassium that was prescribed at her visit. Is that correct? Or are they giving lasix without potassium? Maria Luisa Charlton calling back and pt is not on potassium because if gave her diarrhea in the past and pt already has loose stools and they were concerned would make things worse. Sandhya Payne LPN Is she taking potassium? Has she had a problem with it? Any diarrhea? If not recommend continuing on unchanged as this what she listed as her allergy to potassium. Maria Luisa from [facility] calling with report on patient leg. Patient legs remain red and edema rk legs remains the same. Patient is complaining of pain with her legs. Asking about patient Potassium allergy, if patient could be placed on Spironolactone in its place? Patient was given rx for Potassium 8 meq one daily on Sunday. Please advise documented in this encounter [facility] 03-13-2023 Miscellaneous Notes Formattin g of this note might be different from the original. Delfina Aragon with [facility] calls to request a copy of most recent OV note be faxed to them. Faxed to [phone] per request. Ivana Foster RN documented in this encounter [facility] 03-12-2023 Miscellaneous Notes Formattin g of this note might be different from the original. Spoke to Steph/pharmacist at [facility] pharmacy, given a verbal for 28 tablets. Lina Berry LPN yes, resent Pharmacist at [facility] pharmacy reports Shweta Sneed, send Rx for keflex 500 mg take 1 capsule by mouth 4 times daily for 7 days, with quantity #14 instead of #28. Asking if she can change quantity to #28. Please phone pharmacist with verbal: [phone] documented in this encounter [facility] 03-09-2023 Miscellaneous Notes Formattin g of this note is different from the original. Reason for Disposition [1] Red area or streak [2] large (> 2 in. or 5 cm) Protocols used: Leg Swelling and [id number] Instructed nurse to send pt to the ER but when nurse spoke to pt's daughter, the daughter refused. States she will wait to see Dr. Frias. I called and spoke with pt's daughter Anya. She is adamant about not taking her mother to the ER. States her mom has dementia and the last time they were in the ER, they were there for 7 hours and they didn't do anything for her mom. She feels what is going on with her mom is a reoccurring problem and it is because the hospital took her off of 5 medications. Daughter will not take pt to the ER so appt given with Nedra Cheema for 1220 pm today. Answer Assessment - Initial Assessment Questions 1. ONSET: Nurse states she noticed the increased swelling and redness yesterday. She states she was off the two days before and no one charted anything about it so she is unsure of exactly when it started 2. LOCATION: both legs 3. SEVERITY: nurse feels it is moderated but no pitting edema - Localized: Small area of swelling localized to one leg. - MILD pedal edema: Swelling limited to foot and ankle, pitting edema < 1/4 inch (6 mm) deep, rest and elevation eliminate most or all swelling. - MODERATE edema: Swelling of lower leg to knee, pitting edema > 1/4 inch (6 mm) deep, rest and elevation only partially reduce swelling. - SEVERE edema: Swelling extends above knee, facial or hand swelling present. 4. REDNESS: yes with blisters starting. Nurse states one is open and oozing 5. PAIN: Yes pt is having pain and having difficulty walking because of it. 6. FEVER: Nurse states pt does not have a fever 7. CAUSE: Nurse states that pt has been taken off of all her diuretics 8. MEDICAL HISTORY: see recent H&P info 9. RECURRENT SYMPTOM: Nurse states pt has had leg swelling and cellulitis before. Treated with oral antibiotics 10. OTHER SYMPTOMS: Nurse does not feel patient is having any other issues. 11. : N/A Protocols used: Leg Swelling and [id number] documented in this encounter [facility] 03-07-2023 Miscellaneous Notes Formattin g of this note might be different from the original. Delfina-[facility] called and is notified of providers message and instructions. She voices understanding and reports she will call the Pt and notify her. Elsy Rosales RN Yes, allergy noted. Yes continue simvastatin. Medications reconciled with discharge summary. Schedule hospital follow up appointment. Delfina with [facility] calls to see if pcp is aware that pt is allergic to Lipitor and taking simvastatin. Delfina needs verbal from pcp that he is aware and to continue or not continue simvastatin. Sarina Gutierrez LPN documented in this encounter [facility] 03-06-2023 Miscellaneous Notes Formattin g of this note might be different from the original. Noted. Lewis PT calling from [facility] to report plan of care for patient and PT will visit patient 2 times a week for three weeks. PT will work with patient on functional mobility. No call back necessary unless provider has questions. Ivana Foster RN documented in this encounter [facility] 02-27-2023 Miscellaneous Notes Formattin g of this note might be different from the original. Left detailed vm on identified vm with provider's message below. Okay for orders below, PCP will follow Mckenzie Ruggiero APRN.[employer]OLD [employer]ER Minerva from [facility] states pt was d/c'd over the weekend & they received notification today. Minerva is hoping to see pt tomorrow. Asking for OK for delay of start of care? 2. Asking if provider will follow? Pt hosp for SUKHI & history of dementia. Pt at [facility]. Karime Garcia LPN documented in this encounter [facility] 02-25-2023 Discharge summary Note Date/Time February 25, 2023 12:39pm [facility] Medical Records Department [address] [place] [address] Instructions for Home/Discharge Instructions 02/25/23 1236 MR#: [id number] Acct: [id number] Name: CHRISTY FOFANA Rep #:[id number] : 1935 87 From: Will tyler DO PCP: Dr. José Miguel Frias MD Status:A DM CHARLI Discharge Instructions Diet Discharge Diet: No restrictions Activity Discharge Activity: Return to Normal Activity Weight Bearing Status: Full weight bearing Follow Up Care Please Follow Up With: José Miguel Frias MD When: As needed Test Results: Test results from this visit will be discussed in further detail at your follow-up appointment, if applicable. Pending Tests Upon Discharge: None Discharge Plan Admission Admit Date/Time: 02/23/23 21:07 Primary Reason for Your Visit: Fall, declining functional status Attending Provider: Will Bah Primary Care Provider: José Miguel Frias Consulting Providers: Jhonathan Londono Instructions Additional Instructions / Restrictions: Please STOP taking the following medications on discharge: - atenolol - chlorthalidone - losartan I am concerned that these medications were causing the patient's blood pressure to drop low and make her more susceptible to having falls. Her blood pressure was within normal range throughout her hospitalization here off of those medications. She can continue all other home medications as normal. Home health care will be set up tomorrow and will come to see her in the memory care unit within the next few days. Discharge Orders/Prescriptions Prescriptions: Continued levothyroxine 88 mcg tablet 88 mcg PO QDAY Proventil HFA 90 mcg/actuation HFA aerosol inhaler 2 puff INHALATION Q4H PRN (Reason: sob) aspirin 81 MG tablet 81 mg PO DAILY@0800 multivitamin with folic acid 1 TABLET tablet 1 tab PO DAILY simvastatin 20 MG tablet 20 mg PO QHS fluoxetine [Prozac] 20 mg capsule 20 mg PO DAILY Patient Comments: Take 1 capsule By Mouth every morning rivastigmine 4.6 mg/24 hour patch 24 hour 4.6 mg transdermal DAILY melatonin 3 mg capsule 3 mg PO QHS Changed quetiapine 25 mg tablet 25 mg PO BID 30 Days Qty: 60 0RF Discontinued chlorthalidone 25 mg tablet 25 mg PO DAILY hydroxyzine pamoate [Vistaril] 25 mg capsule 25 mg PO TID PRN Patient Comments: Take 1 capsule by mouth once a day @4pm for Anxiety/Agitation along with a tid prn order Rx Instructions: 4 pm quetiapine 50 mg tablet 50 mg PO BID losartan 50 mg tablet 50 mg PO QDAY Qty: 30 11RF atenolol 50 mg tablet 50 mg PO DAILY Qty: 90 3RF Referrals / Follow Up: José Miguel Frias MD [Primary Care Provider] - Disposition Disposition (needs filled in before D/C Order can be placed): Assisted Living 02/25/23 1242<Electronically signed by Will Bah DO>Will Bah DO CC: Dr. Jhonathan Londono MD; Dr. José Miguel Frias MD ~ Signed [facility] Work Phone: 1(717) 248-174910-21-2023 Progress note Author Will Bah [facility] February 24, 2023 3:14pm Note Date/Time February 24, 2023 3 :14pm [facility] Medical Records Department [address] [place] [address] Progress Note - Hospitalist 02/24/23 1502 MR#: [id number] Acct: [id number] Name: CHRISTY FOFANA Rep #:[id number] : 1935 87 From: Will tyler DO PCP: Dr. José Miguel Frias MD Status:A DM CHARLI Location: MS3 [id number] Reason for Visit Reason for Visit: Diagnoses Repeated falls (02/23/23) Other malaise (02/23/23) Subjective Subjective Patient seen at bedside this morning. Sitting comfortably in bedside chair, no acute distress. Patient is alert and answering most questions appropriately on my interview. Does state that she is experienced several falls here recently. States she feels somewhat weaker than her baseline and the falls are just a product of her getting older. She denies any lightheadedness or dizziness with standing. She has been able to ambulate to the bathroom and back this morning without significant issue. Denies any fevers or chills. Denies any other pain or discomfort. No other acute concerns. Objective Data Objective Data Vital Signs: Vital Signs Temp Pulse Resp BP Pulse Ox O2 Del Method 98.0 F 74 18 145/81 H 100 Room Air 02/24/23 13:55 02/24/23 13:55 02/24/23 13:55 02/24/23 13:55 02/24/23 13:55 02/24/23 13:55 Oxygen Delivery Method Room Air Weight: 80.15 kg Body Mass Index (BMI) 26.9 Intake & Output: Intake and Output for Last 24 Hours 02/22/23 02/23/23 02/24/23 23:59 23:59 23:59 Intake Total 500 / 500 1945 Balance 500 / 500 1945 Lab / Micro Data 02/23/23 18:00 02/24/23 06:07 Labs: Laboratory Results - last 24 hr 02/23/23 18:00: WBC 6.4, RBC 3.84 L, Hgb 11.6 L, Hct 34.9 L, MCV 90.9, MCH 30.2,MCHC 33.2, RDW Std Deviation 41.9, RDW Coeff of Noah 12.6, Plt Count 198, MPV 10.1, Immature Gran % (Auto) 0.500, Neut % (Auto) 69.0, Lymph % (Auto) 18.1 L, Harrison % (Auto) 9.6, Eos % (Auto) 2.5, Baso % (Auto) 0.3, Absolute Neuts (auto) 4.4, Absolute Lymphs (auto) 1.15, Nucleated RBC % 0, Sodium 138, Potassium 3.8, Chloride 105, Carbon Dioxide 25.0, Anion Gap 8, BUN 74 H, Creatinine 1.34 H, Estim Creat Clear Calc 30.96, Est GFR (MDRD) Af Amer 48 L, Est GFR (MDRD) Non-Af40 L, BUN/Creatinine Ratio 55.2 H, Glucose 98, Calcium 9.2, Magnesium 2.3, TotalBilirubin 0.80, AST 31, ALT 26, Alkaline Phosphatase 86, Total Protein 6.8, Albumin 3.7, Globulin 3.1, Albumin/Globulin Ratio 1.2 02/23/23 18:47: Urine Color Yellow, Urine Clarity Clear, Urine pH 5.0, Ur Specific Bucklin 1.015, Urine Protein Negative, Urine Glucose (UA) Normal, UrineKetones Negative, Urine Occult Blood Negative, Urine Nitrite Negative, Urine Bilirubin Negative, Urine Urobilinogen Normal, Ur Leukocyte Esterase 25 H, UrineRBC 0 SEEN, Urine WBC 0-5 SEEN, Ur Squamous Epith Cells 0-5 SEEN, Urine Bacteria0 SEEN, Urine Mucus 0 SEEN 02/24/23 06:07: Sodium 143, Potassium 3.4 L, Chloride 110 H, Carbon Dioxide 26.0, Anion Gap 7, BUN 55 H, Creatinine 0.90, Estim Creat Clear Calc 46.10, Est GFR (MDRD) Af Amer 76, Est GFR (MDRD) Non-Af 63, BUN/Creatinine Ratio 61.0 H, Glucose 80, Calcium 8.4 L, TSH 0.60 Micro: Microbiology 02/23/23 18:18 Nasal Secretion SARS-CoV-2 & FLU Antigen (Rapid) - Final Radiography Diagnostic Testing: Radiology Impression Brain CT 02/23/23 18:04 IMPRESSION: Normal unenhanced CT scan of the brain. Electronically Signed: Roger Nicolas MD at 19:55 EDT Reading Location ID and State: [id number] / [employer] , Service support , Pelvis X-Ray 02/23/23 18:04 IMPRESSION: Normal x-ray examination of the pelvis. Electronically Signed: Roger Nicolas MD at 19:31 EDT Reading Location ID and State: [place] / [employer] , Service support , Cervical Spine CT 02/23/23 18:08 IMPRESSION: No acute fracture or subluxation. Electronically Signed: Roger Nicolas MD at 19:59 EDT Reading Location ID and State: [place] / [employer] , Service support , Chest X-Ray 02/23/23 19:00 IMPRESSION: Normal x-ray examination of the chest. Electronically Signed: Roger Nicolas MD at 19:30 EDT Reading Location ID and State: [id number] / [employer] , Service support , Physical Exam Const alert and no apparent distress Constitutional Narrative: Pleasant elderly female, sitting comfortably in bedside chair, alert, answering most questions appropriately, no acute distress. General Appearance: cooperative and comfortable HEENT normocephalic, head/scalp atraumatic, hearing grossly normal bilaterally, nasal mucous membranes and turbinates normal and moist oral mucous membranes Eyes PERRL, EOMs intact bilaterally and conjunctivae normal Neck full ROM, no lymphadenopathy and supple Lymph Lymphatic: no lymphadenopathy noted Chest inspection of chest normal Resp normal respiratory effort, normal air movement, no use of accessory muscles and clear to auscultation bilaterally Cardio regular rate, regular rhythm, no murmurs and peripheral pulses 2+ throughout GI normal to inspection, nondistended, normoactive bowel sounds, soft to palpation,non-tender and non-distended Back/Spine normal ROM Extremity normal to inspection, full ROM and no pedal edema Skin no rashes or lesions noted Psych mental status grossly normal Assessment & Plan Assessment/Plan (1) Declining functional status: PLAN: Plan Patient is an 87-year-old female with history of dementia, history of falls, hypertension, hypothyroidism and depression who presented to [facility] ED on 02/23/2023 after a fall. 1. Fall, debility Patient resides in memory care unit as noted below. Accompanied by son and [id number] on admission. Had reportedly fallen 3 times on day of admissionand 5 times during the week. Patient reported generalized weakness and poor p.o. intake. CT brain and C-spine negative, chest x-ray negative, pelvic x-ray negative for any acute pathology. UA unremarkable. ? PT/OT/case management following. Patient did well with therapy. Per case management, will be okay to return to memory care unit with therapy services able to come into unit as needed. If remains stable, likely okay for discharge tomorrow. 2. Dementia ? Resides in the memory care unit at [facility]. PT/OT/case management following as above, okay for return to memory care unit on discharge with therapy services as needed. 3. SUKHI, resolved Presumed prerenal in setting of poor p.o. intake prior to admission. BUN 74, creatinine 1.34 on admit. Baseline creatinine around 0.7-0.9. Creatinine improved to 0.9 with IV fluids. Patient reports good urine output. ? Encouraged p.o. intake as able. No need to monitor further labs. Chronic medical conditions: ? Hypertension: Continue home atenolol, holding home chlorthalidone and losartanfor now, will be okay to resume on discharge. ? Hypothyroidism: Continue home Synthroid. ? Depression: Continue home fluoxetine and Seroquel. DVT prophylaxis: SCDs CODE STATUS: Full code, verified Expected disposition: Back to memory care unit, tomorrow Total clinical time spent by myself addressing the patient's medical issues, reviewing all the data, and collaborating with patient's care team: 35 minutes. Charges/Coding Visit Charges Inpatient E&M: 76397 Subs Hosp L2 02/24/23 7222 <Electronically signed by Will Bah DO> Cosigner Signature (if applicable): CC: ~ Signed [facility] Work Phone: 1(612) 501-704510-21-2023 History and physical note Author Jhonathan Londono [facility] February 24, 2023 4:36am Note Date/Time February 23, 2023 9 :13pm [facility] Medical Records Department [address] [place] [address] H&P Exam - Hospitalist 02/23/232112 MR#: [id number] Acct: [id number] Name: CHRISTY FOFANA Rep #:[id number] : 1935 87 From: Jhonathan Heart PCP: Dr. José Miguel Frias MD Status:A DM CHARLI Location: [facility] SV204-2 HPI - General General Date of Admission: 02/23/23 Date of Service: 02/23/23 Chief Complaint: Recurrent fall, generalized weakness and lower back pain HPI Narrative CHRISTY FOFANA, is a 87 F with multiple comorbidities brought to ED by EMS from assisted living [facility]. Patient is accompanied by her daughter and son-in-law. Patient has fallen 3 times today and 5 times this week. She istoo weak and not having adequate water intake and food. As per the ER physicianwhen she came in she was not talking much but when I saw patient was talking although she takes time to answer. She also has dementia and does not remember the month and the year but remembers her name date of her daughter's name. Vitals in the EMS and ED are normal range She also missed a step about 2 days ago and hit her head. No loss of consciousness. No major injuries. I did not feel major hematoma or swelling patient does not have fever at chills, chest pain shortness of breath diarrhea alteration of bowel movement or acute urinary symptoms including burning micturition. No GI bleed. She recently had influenza and pneumonia shot. [facility] Medical History Anxiety Atrial fibrillation Chest pain Dementia Depression Groin pain, chronic, left Hyperlipidemia Hypertension Hypothyroidism Hypothyroidism Non-smoker Nonrheumatic mitral (valve) prolapse Premature atrial contractions Premature ventricular contraction Spinal stenosis Home Medications aspirin 81 mg tablet,delayed release 81 mg PO DAILY@0800 11/18/13 [History Last Taken Unknown] multivitamin with folic acid 400 mcg tablet 1 tab PO DAILY 11/18/13 [History Last Taken Unknown] simvastatin 20 mg tablet 20 mg PO QHS 10/16/16 [History Last Taken Unknown] levothyroxine 88 mcg tablet 88 mcg PO QDAY 11/21/17 [History Last Taken Unknown] losartan 50 mg tablet 50 mg PO QDAY #30 tabs 11/22/17 [Rx Last Taken Unknown] albuterol sulfate 90 mcg/actuation aerosol inhaler (Proventil HFA) 2 puff inhalation Q4H PRN sob 03/14/18 [History Last Taken Unknown] atenolol 50 mg tablet 50 mg PO DAILY Pt is completely OUT #90 tabs 10/10/21 [Rx Last Taken Unknown] chlorthalidone 25 mg tablet 25 mg PO DAILY 02/23/23 [History Last Taken Unknown] fluoxetine 20 mg capsule (Prozac) 20 mg PO DAILY 02/23/23 [History Last Taken Unknown] hydroxyzine pamoate 25 mg capsule (Vistaril) 25 mg PO DAILY 02/23/23 [History Last Taken Unknown] quetiapine 25 mg tablet 25 mg PO DAILY 02/23/23 [History Last Taken Unknown] quetiapine 50 mg tablet 50 mg PO BID 02/23/23 [History Last Taken Unknown] rivastigmine 4.6 mg/24 hour transdermal patch 4.6 mg transdermal DAILY 02/23/23 [History Last Taken Unknown] Allergy/AdvReac Type Severity Reaction Status Date / Time clindamycin Allergy Vomiting Verified 04/26/22 22:30 Penicillins [PCN] Allergy Hives Verified 04/26/22 22:30 Sulfa (Sulfonamide Allergy Hives Verified 04/26/22 22:30 Antibiotics) atorvastatin calcium AdvReac Diarrhea Verified 04/26/22 22:30 [From Lipitor] hydromorphone HCl AdvReac Vomiting Verified 04/26/22 22:30 [From Dilaudid] morphine AdvReac Vomiting Verified 04/26/22 22:30 potassium AdvReac Diarrhea Verified 04/26/22 22:30 procaine [From Novocain] AdvReac Other Verified 04/26/22 22:30 tetracycline [Tetracycline] AdvReac Vomiting Verified 04/26/22 22:30 Family History Father CAD (coronary artery disease) ICD (implantable cardioverter-defibrillator) in place Brother Pacemaker Brother CAD (coronary artery disease) Myocardial infarction Surgical History History of cataract extraction History of cholecystectomy History of hernia repair History of hysterectomy History of knee replacement procedure of left knee History of knee replacement procedure of right knee Social History Smoking Status: Never smoker alcohol intake: never substance use type: does not use caffeine: No frequency: does not exercise ROS ROS Narrative 14 ROS is incomplete because of patient's history of dementia. It is mainly asked from her daughter near the bedside who is airline managerial supervisor and her son-in-law. Recently she has decreased in activity and increased forgetfulness and memory. Rest of the features are negative except already mentioned in HPI. Vital Signs Vital Signs Vital Signs: 02/23/23 17:32 02/23/23 20:23 02/23/23 20:23 Temperature 97 F L Temperature Source Temporal Pulse Rate 62 Respiratory Rate 15 Respiratory Effort Normal Non-Labored Respiratory Depth Normal Respiratory Pattern Normal Blood Pressure 129/77 H Blood Pressure Mean 94 Pulse Ox 97 95 Oxygen Delivery Method Room Air Room Air Weight Weight: 172 lb 13.478 oz Body Mass Index (BMI) 26.2 Physical Exam Narrative General: Awake, alert, oriented to place and person but disoriented to time, Cooperative HEENT: Atraumatic, PERRLA, EOMI, Normocephalic Oral: Oral mucosa very dry no Gingival or Mucosal Lesions/ Ulcerations Neck: Supple, No JVD, Negative Carotid Bruits Lungs: Air entry diminished in bilateral lung bases. No crepitation/rhonchi Cardiovascular: Regular rate, Regular Rhythm, Normal S1, Normal S2, No murmurs Abdomen: Bowel Sounds Present, Soft, Non Tender, Non-Distended : No renal angle tenderness. No suprapubic tenderness. Extremities: No edema, Capillary Refill Less than 3 Seconds Skin: Skin bruise over left lateral hip region and gluteal region. Musculoskeletal: No acute tenderness of the bilateral hip region, trochanteric region. ROM maintained. Scar of knee replacement. Neurological: Cranial nerves II-XII grossly intact, DTR 2+/4. No acute focal neurological deficit. Muscle strength 4+/5 at hip and knee regions. Psych/Mental Status: Flat affect. Dementia Results Lab / Micro Data 02/23/23 18:00 02/23/23 18:00 Labs: Laboratory Results - last 24 hr 02/23/23 18:00: WBC 6.4, RBC 3.84 L, Hgb 11.6 L, Hct 34.9 L, MCV 90.9, MCH 30.2, MCHC 33.2, RDW Std Deviation 41.9, RDW Coeff of Noah 12.6, Plt Count 198, MPV 10.1, Immature Gran % (Auto) 0.500, Neut % (Auto) 69.0, Lymph % (Auto) 18.1 L, Harrison % (Auto) 9.6, Eos % (Auto) 2.5, Baso % (Auto) 0.3, Absolute Neuts (auto) 4.4, Absolute Lymphs (auto) 1.15, Nucleated RBC % 0, Sodium 138, Potassium 3.8, Chloride 105, Carbon Dioxide 25.0, Anion Gap 8, BUN 74 H, Creatinine 1.34 H, Estim Creat Clear Calc 30.96, Est GFR (MDRD) Af Amer 48 L, Est GFR (MDRD) Non-Af 40 L, BUN/Creatinine Ratio 55.2 H, Glucose 98, Calcium 9.2, Total Bilirubin 0.80, AST 31, ALT 26, Alkaline Phosphatase 86, Total Protein 6.8, Albumin 3.7, Globulin 3.1, Albumin/Globulin Ratio 1.2 02/23/23 18:47: Urine Color Yellow, Urine Clarity Clear, Urine pH 5.0, Ur Specific Bucklin 1.015, Urine Protein Negative, Urine Glucose (UA) Normal, Urine Ketones Negative, Urine Occult Blood Negative, Urine Nitrite Negative, Urine Bilirubin Negative, Urine Urobilinogen Normal, Ur Leukocyte Esterase 25 H, Urine RBC 0 SEEN, Urine WBC 0-5 SEEN, Ur Squamous Epith Cells 0-5 SEEN, Urine Bacteria 0 SEEN, Urine Mucus 0 SEEN Micro: Microbiology 02/23/23 18:18 Nasal Secretion SARS-CoV-2 & FLU Antigen (Rapid) - Final Radiology Impression Brain CT 02/23/23 18:04 IMPRESSION: Normal unenhanced CT scan of the brain. Electronically Signed: Roger Nicolas MD at 19:55 EDT Reading Location ID and State: [id number] / [employer] , Service support , Pelvis X-Ray 02/23/23 18:04 IMPRESSION: Normal x-ray examination of the pelvis. Electronically Signed: Roger Nicolas MD at 19:31 EDT Reading Location ID and State: [employer] / [employer] , Service support , Cervical Spine CT 02/23/23 18:08 IMPRESSION: No acute fracture or subluxation. Electronically Signed: Roger Nicolas MD at 19:59 EDT Reading Location ID and State: [employer] / [employer] , Service support , Chest X-Ray 02/23/23 19:00 IMPRESSION: Normal x-ray examination of the chest. Electronically Signed: Roger Nicolas MD at 19:30 EDT Reading Location ID and State: [id number] / [employer] , Service support , Assessment & Plan Assessment/Plan (1) Declining functional status: (2) Multiple falls: PLAN: Plan This 87-year-old female is being admitted for recurrent fall, failure to thrive and dehydration 1. SUKHI most likely prerenal: Patient baseline creatinine runs around 0.7-1.0. Admitting BUN/creatinine 74/1.34, BUN/creatinine ratio 55. Serum sodium potassium and bicarb in normal range. Anion gap 8. Started on Ringer lactate 100 Emmel per hour for 2 L. Reevaluate kidney for electrolytes tomorrow morning. 2. Acute on recurrent fall: Patient did not had loss of consciousness. PT and OT evaluation. Mild bruise over left hip region. Patient fell on the left lateral side of her head but no major hematoma on exam. Patient had multiple imaging in ER, individually reviewed including CT head and CT C-spine which did not show any acute change. Furthermore patient had pelvics x-ray which reported normal. Chest x-ray does not show acute abnormality. 3. Advanced dementia with recent worsening, confusion, forgetfulness possible metabolic encephalopathy from dementia: When patient came in she was very confused and not talking but sister talking later on. Try to correct disorder. No burning micturition or acute urinary changes. LE 25. WBC 0-5 RBC 0. Nitrite negative. Bacteria 0. I do not suspect patient has UTI. 4. Multiple other comorbidities include hypertension, dyslipidemia, PVCs: Twelve-lead EKG individually reviewed. Normal sinus rhythm, first-degree block with LAD. Incomplete right bundle branch block. QTc 497 mildly prolonged. Living will/advanced directive/end of life care: Patient does have living will or advanced directive. Her daughter near the bedside is power of immigration attorney for health. After discussion of benefits/risks procedures involved with full code, DNR CC arrest and DNR CC, POA elected for full code. Patient has dementia and herself cannot make decision because of the complexity of the advanced directive and living will. Patient does want artificial life support including intubation, tube feed, ventilator and/chest compression, central venous catheter, vasopressor and DC shock if needed as per the daughter Total time spent in [id number] encounter in discussion of advanced directive 17 minutes. Microbiology Past 72 Hours 02/23/23 18:18 Nasal Secretion SARS-CoV-2 & FLU Antigen (Rapid) - Final Laboratory Results 02/23/23 18:00: WBC 6.4, RBC 3.84 L, Hgb 11.6 L, Hct 34.9 L, MCV 90.9, MCH 30.2, MCHC 33.2, RDW Std Deviation 41.9, RDW Coeff of Noah 12.6, Plt Count 198, MPV 10.1, Immature Gran % (Auto) 0.500, Neut % (Auto) 69.0, Lymph % (Auto) 18.1 L, Harrison % (Auto) 9.6, Eos % (Auto) 2.5, Baso % (Auto) 0.3, Absolute Neuts (auto) 4.4, Absolute Lymphs (auto) 1.15, Nucleated RBC % 0, Sodium 138, Potassium 3.8, Chloride 105, Carbon Dioxide 25.0, Anion Gap 8, BUN 74 H, Creatinine 1.34 H, Estim Creat Clear Calc 30.96, Est GFR (MDRD) Af Amer 48 L, Est GFR (MDRD) Non-Af 40 L, BUN/Creatinine Ratio 55.2 H, Glucose 98, Calcium 9.2, Magnesium 2.3, Total Bilirubin 0.80, AST 31, ALT 26, Alkaline Phosphatase 86, Total Protein 6.8, Albumin 3.7, Globulin 3.1, Albumin/Globulin Ratio 1.2 02/23/23 18:47: Urine Color Yellow, Urine Clarity Clear, Urine pH 5.0, Ur Specific Bucklin 1.015, Urine Protein Negative, Urine Glucose (UA) Normal, Urine Ketones Negative, Urine Occult Blood Negative, Urine Nitrite Negative, Urine Bilirubin Negative, Urine Urobilinogen Normal, Ur Leukocyte Esterase 25 H, Urine RBC 0 SEEN, Urine WBC 0-5 SEEN, Ur Squamous Epith Cells 0-5 SEEN, Urine Bacteria 0 SEEN, Urine Mucus 0 SEEN Clinical Impression(s) from Imaging Studies Brain CT 02/23/23 18:04 IMPRESSION: Normal unenhanced CT scan of the brain. Pelvis X-Ray 02/23/23 18:04 IMPRESSION: Normal x-ray examination of the pelvis. Cervical Spine CT 02/23/23 18:08 IMPRESSION: No acute fracture or subluxation. Chest X-Ray 02/23/23 19:00 IMPRESSION: Normal x-ray examination of the chest. 02/23/23 2346 <Electronically signed by Jhonathan Londono MD> Cosigner Signature (if applicable): CC: Dr. Jhonathan Londono MD; Dr. José Miguel Frias MD~ Signed ADDENDUM by Dr. Jhonathan Londono MD on 02/24/23 at 0436 Addendum Patient has confusion, disorientation, delayed reaction time and difficulty in comprehension probably acute encephalopathy. Patient on multiple antidepressant and antipsychotic medications including fluoxetine, quetiapine 25 mg at 4 PM and 50 mg twice daily, rivastigmine for dementia along with hydroxyzine. Hold rivastigmine, fluoxetine and quetiapine. Reintroduce quetiapine and rivastigmine patient is more alert but at lower dose 02/24/23 0436<Electronically signed by Jhonathan Londono MD> Cosigner Signature (if applicable): cc: Dr. Jhonathan Londono MD; Dr. José Miguel Frias MD ~* Signed [facility] Work Phone: 1(627) 147-605710-21-2023 Discharge summary Author Peter Listerman [facility] February 23, 2023 10:22pm Note Date/Time February 23, 2023 6 :08pm [facility] Medical Records Department [address] [place] [address] Emergency Department Summary 02/23/23 MR#: [id number] Acct: [id number] Name: CHRISTY FOFANA Rep #:[id number] : 1935 87 From: De Quiroz MD PCP: Dr. José Miguel Frias MD Status:A DM CHARLI Location: MS3 [id number] HPI HPI - Fall History of Present Illness Chief Complaint: Fall Informant: family Narrative Narrative: History is from daughter and I reviewed records that came in with the patient. Patient only gives simple yes and knows at times. She presents after multiple falls. This patient does have some dementia. She is at a memory care unit at [facility]. She evidently walks with a cane normally. On Sunday, 2 days ago,she missed stepped fell and did hit her head. But she did not lose consciousness. She has been acting normally since. She was eating that day. But today she fell a few other times. Details are unsure clear about this because she was just found on the floor. She was evidently too weak to stand. Patient does not state that there is any pain anywhere. I get no report throughher daughter of diarrhea or urinary symptoms. I get a report of recent fevers. Although the patient has memory problems she is normally very alert and conversant and she is not at all alert and conversant now. It is possible she had influenza and pneumonia shots recently but the daughter is not sure of this. [facility] Medical History (Updated 02/23/23 @ 22:[address] De Quiroz MD) Groin pain, chronic, left Hyperlipidemia Hypothyroidism Nonrheumatic mitral (valve) prolapse Premature atrial contractions Premature ventricular contraction Home Medications aspirin 81 mg tablet,delayed release 81 mg PO DAILY@0800 11/18/13 [History Last Taken Unknown] multivitamin with folic acid 400 mcg tablet 1 tab PO DAILY 11/18/13 [History Last Taken Unknown] simvastatin 20 mg tablet 20 mg PO QHS 10/16/16 [History Last Taken Unknown] levothyroxine 88 mcg tablet 88 mcg PO QDAY 11/21/17 [History Last Taken Unknown] losartan 50 mg tablet 50 mg PO QDAY #30 tabs 11/22/17 [Rx Last Taken Unknown] albuterol sulfate 90 mcg/actuation aerosol inhaler (Proventil HFA) 2 puff inhalation Q4H PRN sob 03/14/18 [History Last Taken Unknown] atenolol 50 mg tablet 50 mg PO DAILY Pt is completely OUT #90 tabs 10/10/21 [Rx Last Taken Unknown] chlorthalidone 25 mg tablet 25 mg PO DAILY 02/23/23 [History Last Taken Unknown] fluoxetine 20 mg capsule (Prozac) 20 mg PO DAILY 02/23/23 [History Last Taken Unknown] hydroxyzine pamoate 25 mg capsule (Vistaril) 25 mg PO DAILY 02/23/23 [History Last Taken Unknown] quetiapine 25 mg tablet 25 mg PO DAILY 02/23/23 [History Last Taken Unknown] quetiapine 50 mg tablet 50 mg PO BID 02/23/23 [History Last Taken Unknown] rivastigmine 4.6 mg/24 hour transdermal patch 4.6 mg transdermal DAILY 02/23/23 [History Last Taken Unknown] Allergy/AdvReac Type Severity Reaction Status Date / Time clindamycin Allergy Vomiting Verified 04/26/22 22:30 Penicillins [PCN] Allergy Hives Verified 04/26/22 22:30 Sulfa (Sulfonamide Allergy Hives Verified 04/26/22 22:30 Antibiotics) atorvastatin calcium AdvReac Diarrhea Verified 04/26/22 22:30 [From Lipitor] hydromorphone HCl AdvReac Vomiting Verified 04/26/22 22:30 [From Dilaudid] morphine AdvReac Vomiting Verified 04/26/22 22:30 potassium AdvReac Diarrhea Verified 04/26/22 22:30 procaine [From Novocain] AdvReac Other Verified 04/26/22 22:30 tetracycline [Tetracycline] AdvReac Vomiting Verified 04/26/22 22:30 Family History Father CAD (coronary artery disease) ICD (implantable cardioverter-defibrillator) in place Brother Pacemaker Brother CAD (coronary artery disease) Myocardial infarction Surgical History History of cataract extraction History of cholecystectomy History of hernia repair History of hysterectomy History of knee replacement procedure of left knee History of knee replacement procedure of right knee Social History Smoking Status: Never smoker alcohol intake: never substance use type: does not use caffeine: No frequency: does not exercise ROS ROS ED ROS Narrative A complete review of systems was performed and is negative except as documented in the history of present illness. Some specific details below. Constitutional: No recent fevers or chills. Positive malaise or decreased activity. EYE: No known visual complaints. ENT: No difficulty swallowing. No swelling. No pain. CV: No chest pain or palpitations. Portably does have a history of atrial fibrillation but is not on anticoagulation. Respiratory: No dyspnea. No hemoptysis. No difficulty taking breaths. No known recent cough. GI: Only has not been eating or drinking as much the last couple days. But no report of vomiting or diarrhea. : No frequency dysuria or hematuria. Border malodorous urine. Musculoskeletal: Has had recent falls but no report of any focal pain. But she evidently would not or could not stand up. Skin: No rash. Nondiaphoretic. Neuro: No focal weakness or numbness. But the patient does have generalized decreased alertness, increased confusion and is not nearly as conversant as normal. Endocrine: No polyuria or polydipsia. EXAM Physical Exam Const Vital Signs: 02/23/23 17:32 02/23/23 20:23 02/23/23 20:23 Temperature 97 F L Temperature Source Temporal Pulse Rate 62 Respiratory Rate 15 Respiratory Effort Normal Non-Labored Respiratory Depth Normal Respiratory Pattern Normal Blood Pressure 129/77 H Blood Pressure Mean 94 Pulse Ox 97 95 Oxygen Delivery Method Room Air Room Air MDM MDM MDM Narrative Medical decision making narrative: Patient CBC shows minimal anemia. Graph patient's electrolytes show mild elevation in the creatinine and BUN consistent with some dehydration. She was given some IV fluids gently here. Patient's liver function test are normal. Patient's urine is clean. My independent interpretation of the single view pelvis shows no fracture this is consistent with final read. She does have some arthritic changes. My independent interpretation of the single view to image chest x-ray shows no acute process. Final reading is similar. My independent interpretation of the patient's CT of the head shows no acute process as does the final reading. My independent interpretation of the CT of the cervical spine shows a lot of degenerative changes but no indication of acute fracture. This is consistent with final read also. I went back and talk with the patient and family. The patient actually was able to say a few words to me now. Which is a slight improvement. But she is still nowhere near her baseline per the family. There is a question if she may have gotten influenza and pneumonia vaccines recently but this is not certain. I looked at her med list and she is on quetiapine as well as hydroxyzine that could cause her to be lethargic. Hydroxyzine is as needed but I do not know if she has received it more. The daughter states she was also started on melatonin at night but this should not last this long. But with the patient nowhere near her baseline we will admit her. Normally she can walk independently with a cane and we can even get her out of bed now. Lab Data Attestation: I reviewed the patient's lab results. Labs: Laboratory Results - last 24 hr 02/23/23 02/23/23 18:00 18:47 WBC 6.4 RBC 3.84 L Hgb 11.6 L Hct 34.9 L MCV 90.9 MCH 30.2 MCHC 33.2 RDW Std Deviation 41.9 RDW Coeff of Noah 12.6 Plt Count 198 MPV 10.1 Immature Gran % (Auto) 0.500 Neut % (Auto) 69.0 Lymph % (Auto) 18.1 L Harrison % (Auto) 9.6 Eos % (Auto) 2.5 Baso % (Auto) 0.3 Absolute Neuts (auto) 4.4 Absolute Lymphs (auto) 1.15 Nucleated RBC % 0 Sodium 138 Potassium 3.8 Chloride 105 Carbon Dioxide 25.0 Anion Gap 8 BUN 74 H Creatinine 1.34 H Estim Creat Clear Calc 30.96 Est GFR (MDRD) Af Amer 48 L Est GFR (MDRD) Non-Af 40 L BUN/Creatinine Ratio 55.2 H Glucose 98 Calcium 9.2 Magnesium 2.3 Total Bilirubin 0.80 AST 31 ALT 26 Alkaline Phosphatase 86 Total Protein 6.8 Albumin 3.7 Globulin 3.1 Albumin/Globulin Ratio 1.2 Urine Color Yellow Urine Clarity Clear Urine pH 5.0 Ur Specific Bucklin 1.015 Urine Protein Negative Urine Glucose (UA) Normal Urine Ketones Negative Urine Occult Blood Negative Urine Nitrite Negative Urine Bilirubin Negative Urine Urobilinogen Normal Ur Leukocyte Esterase 25 H Urine RBC 0 SEEN Urine WBC 0-5 SEEN Ur Squamous Epith Cells 0-5 SEEN Urine Bacteria 0 SEEN Urine Mucus 0 SEEN Radiography Diagnostic Testing: Clinical Impression(s) from Imaging Studies Brain CT 02/23/23 18:04 IMPRESSION: Normal unenhanced CT scan of the brain. Electronically Signed: Roger Nicolas MD at 19:55 EDT Reading Location ID and State: 994 / [employer] , Service support , Pelvis X-Ray 02/23/23 18:04 IMPRESSION: Normal x-ray examination of the pelvis. Electronically Signed: Roger Nicolas MD at 19:31 EDT Reading Location ID and State: [employer] / [employer] , Service support , Cervical Spine CT 02/23/23 18:08 IMPRESSION: No acute fracture or subluxation. Electronically Signed: Roger Nicolas MD at 19:59 EDT Reading Location ID and State: 994 / [employer] , Service support , Chest X-Ray 02/23/23 19:00 IMPRESSION: Normal x-ray examination of the chest. Electronically Signed: Roger Nicolas MD at 19:30 EDT Reading Location ID and State: 994 / [employer] , Service support , EKG Initial EKG: Comments: My independent interpretation of the patient's EKG shows sinus rhythm with first-degree AV block. No noted ectopy. But there is significant baseline artifact. EKG was attempted to be obtained multiple times and this was the best that able to be done due to patient motion. Within the limits of the study there is no sign of acute ST elevation or depression. MT interval is a little bit long. QRS duration is normal and QTc is just slightly long. Management Discussion w/another healthcare provider: Hospitalist Discharge Plan Triage Chief Complaint: Fall ED Provider: De Quiroz Dx/Rx/DC Orders Clinical Impression: Multiple falls, Declining functional status, Dehydration Primary Care Provider: José Miguel Frias Disposition Disposition: Acute Care Hospital [facility] What to do if you have Problems For any increased pain, shortness of breath, bleeding, nausea or vomiting, chest pain, or any unexpected problems, contact your Primary Care Provider. Call [facility] ([phone]) or report to the closest Emergency Room. Call 911 if necessary. 02/23/232221 <Electronically signed by De Quiroz MD> Cosigner Signature (if applicable): CC: Dr. José Miguel Frias MD ~ Signed [facility] Work Phone: [phone]) 280-209908-23-2023 Miscellaneous Notes* Telephone Encounter - Mel Vaca LPN - 12/27/2022 3:20 PM EDT Patient daughter Anya calling back to check status of note. Went over notes below from Dr Frias with understanding. Daughter is going to call [facility] to check. * Telephone Encounter - José Miguel Frias MD - 12/27/2022 2:18 PM EDT Faxed order for cephalexin. * Telephone Encounter - Ivana Foster RN - 12/26/2022 4:39 PM EDT Daughter (Anya) calls to update on bilateral lower leg stasis dermatitis. Patient had appointment12/[address] Frias. Anya reports that bilateral lower legs are red and warm to touch. Right leg with several fluid fill blisters. Left leg is starting to get some blister formation but not as bad as right leg. Blisters are all intact currently. Anya reports patient hasn't been coming out to meals at [facility] because legs are painful so shedidn't eat yesterday or so far today. Patient is tolerating fluids if given. Anya asking if provider would be willing to order an antibiotic such as Keflex for bilateral lower legs and if so asking that it be sent to [facility]. Anya requests call back at [phone]. Anya reports [facility] was going to fax office as well but wanted to monitor legs for a couple ofday. Please review and advise, Ivana Foster, MELCHOR [facility] History of Present illness Narrative* José Miguel Frias MD - 12/22/2022 3:54 PM EDT This note was created using [employer]. Subjective Patient presents with: Recheck Christy Fofana is a 87 year old female was here with her daughter and son in law. Family reported an episode of panic attack several days ago, when Christy pulled the alarm at 6am complaining of dyspnea. Reportedly the staff gave her a vistaril to help her calm down. Daughter was questioning if a physician or hospice was notified. She was interested in having patient reestablish care with [facility]. Vistaril and other mental health medications were managed by [facility] who sees her in the assisted living facility. Her venous stasis was much better. Skin was less xerotic and color has improved. Review of Systems Constitutional: Negative for fatigue and fever. HENT: Negative. Respiratory: Negative for chest tightness and shortness of breath. Cardiovascular: Positive for leg swelling. Negative for chest pain and palpitations. Gastrointestinal: Negative for diarrhea, nausea and vomiting. ACTIVE PROBLEM LIST Hypothyroidism, Acquired Venous (Peripheral) Insufficiency Hyperlipidemia Ldl Goal <130 Stasis Dermatitis of Both Legs Hypertension Mitral Valve Prolapse Ddd (Degenerative Disc Disease), Lumbar Dementia With Behavioral Disturbance (Hcc) Major Depressive Disorder With Current Active Episode Current Outpatient Medications Medication Sig loperamide HCl (IMODIUM) 2 mg tab Take 2 mg by mouth as needed. ondansetron (ZOFRAN) 4 mg tablet Take 4 mg by mouth every 8 hours as needed for nausea/vomiting. rivastigmine (EXELON) 4.6 mg/24 hour patch Apply 1 Patch as directed once daily. QUEtiapine (SEROQUEL) 25 mg tablet Take 1 tablet by mouth every afternoon. Per Psych. triamcinolone acetonide (KENALOG) 0.1 % cream Apply 1 application to affected area three times daily. Apply sparingly to leg areas for rash/itching. chlorthalidone (HYGROTON) 25 mg tablet Take 1 tablet by mouth once daily. acetaminophen (TYLENOL EXTRA STRENGTH) 500 mg tablet Take 1 tablet by mouth three times daily. FLUoxetine (PROZAC) 20 mg capsule Take 20 mg by mouth once daily. QUEtiapine (SEROQUEL) 50 mg tablet Take 1 tablet by mouth twice daily. hydrOXYzine pamoate (VISTARIL) 25 mg capsule Take 1 capsule by mouth three times daily as needed for anxiety. losartan (COZAAR) 50 mg tablet Take 1 tablet by mouth once daily. simvastatin (ZOCOR) 20 mg tablet Take 1 tablet by mouth daily at bedtime. levothyroxine (SYNTHROID) 88 mcg tablet TAKE ONE TABLET BY MOUTH EVERY DAY ON EMPTY STOMACH atenolol (TENORMIN) 50 mg tablet Take 1 tablet by mouth once daily. multivitamin (MULTIPLE VITAMIN) ORAL Tab Take one(1) tablet daily. ASPIRIN 81 MG TAB Take one(1) tablet daily. hydrOXYzine HCl (ATARAX) 25 mg tablet Take 1 tablet by mouth every afternoon. Per Psych. (Patient not taking: Reported on 12/22/2022) acetaminophen (TYLENOL EXTRA STRENGTH) 500 mg tablet Take 1 tablet by mouth every 6 hours as neededfor pain. (Patient not taking: Reported on 12/22/2022) No current facility-administered medications for this visit. Objective BP 122/84 Pulse 62 Resp 16 Wt 78 kg (172 lb) BMI 28.62 kg/m Physical Exam Constitutional: General: She is not in acute distress. Appearance: She is not ill-appearing. Eyes: Conjunctiva/sclera: Conjunctivae normal. Cardiovascular: Rate and Rhythm: Normal rate and regular rhythm. Heart sounds: No murmur heard. No gallop. Pulmonary: Effort: No respiratory distress. Breath sounds: Normal breath sounds. No wheezing. Abdominal: General: There is no distension. Musculoskeletal: Comments: Trace edema. Mild stasis erythema. Neurological: General: No focal deficit present. Mental Status: She is alert. Mental status is at baseline. Comments: On wheelchair. Psychiatric: Mood and Affect: Mood normal. Behavior: Behavior normal. EKG sinus bradycardia, 1st degree AVB, LAFB, LVH, non specific STT changes. Similar to previous EKGs. Assessment and Plan 1. Dyspnea, unspecified type - ICD9: 786.09, ICD10: R06.00 (primary diagnosis) - ECG COMPLETE - CONSULT TO CARDIOLOGY 2. Venous (peripheral) insufficiency - ICD9: 459.81, ICD10: I87.2 Improved. - TRIAMCINOLONE ACETONIDE 0.1 % TOPICAL CREAM 3. Stasis dermatitis of both legs - ICD9: 454.1, ICD10: I87.2 Improved. Reduce application to BID. - TRIAMCINOLONE ACETONIDE 0.1 % TOPICAL CREAM 4. Dementia with behavioral disturbance (HCC) - ICD9: 294.21, ICD10: F03.918 Stable. 5. History of panic attacks - ICD9: V11.8, ICD10: Z86.59 New onset. Monitor. Medications per mental health provider. José Miguel Frias MD documented in this encounterPromedica [facility]07-26-[facility]23 Miscellaneous Notes* Telephone Encounter - Christy Yin LPN - 11/29/2022 4:01 PM EDT Per fax from pharmacy refills needed. Last seen PAPER DELIVERER 10/31/22. Next appt is 12/22/22 with pcp. documented in this encounterPromedica Fostoria [facility]07-19-2023 History of Present illness Narrative* Nestor Hughes - 11/22/2022 2:23 PM EDT Consultation requested by Dr. Cheema for an opinion regarding traumatic nail avulsion, right hallux. My final recommendations will be communicated back to the requesting physician by way of shared Medical record or letter to requesting physician via US mail. Initial Podiatric Office Visit: Chief Complaint: This 87 year old female who presents with chief complaint:cellulitis of right hallux HPI Patient presents to clinic for follow-up cellulitis of right hallux. About 3 weeks ago, her right great toe was swollen and red. Further, the right great toenail was lifting. She went to her primary care phyisican who placed her on keflex. The redness and swelling has resolved. The toenail has since fallen off. Patient denies any redness or drainage currently. PAIN EVALUATION No data found in the last 1 encounters. No results found for: HBA1C PCP: José Miguel Frias MD PAST MEDICAL HISTORY Diagnosis Date Adrenal adenoma 03/04/2012 Anxiety state, unspecified 07/30/2008 DDD (degenerative disc disease), lumbar 10/08/2018 Dementia with behavioral disturbance (HCC) 06/14/2022 Diverticulosis of colon (without mention of hemorrhage) Dysmetabolic syndrome X 09/18/2006 Enthesopathy of hip region 09/18/2006 Eosinophilic colitis 06/10/2012 Essential hypertension, benign Facet arthritis, degenerative, lumbar spine 10/08/2018 Hyperlipidemia 08/06/2012 Hyperlipidemia LDL goal <130 12/16/2015 Hypertension 11/26/2017 Hypothyroidism, acquired Irritable bowel syndrome Left inguinal hernia 05/21/2016 Liver nodule 03/04/2012 Major depressive disorder with current active episode 06/14/2022 Mitral valve disorders 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 Per Psych. hydrOXYzine HCl (ATARAX) 25 mg tablet Take 1 tablet by mouth every afternoon. Per Psych. triamcinolone acetonide (KENALOG) 0.1 % cream Apply 1 application to affected area three times daily. Apply sparingly to leg areas for rash/itching. rivastigmine (EXELON) 4.6 mg/24 hour patch Apply 1 Patch as directed once daily. chlorthalidone (HYGROTON) 25 mg tablet Take 1 tablet by mouth once daily. acetaminophen (TYLENOL EXTRA STRENGTH) 500 mg tablet Take 1 tablet by mouth three times daily. FLUoxetine (PROZAC) 20 mg capsule Take 20 mg by mouth once daily. QUEtiapine (SEROQUEL) 50 mg tablet Take 1 tablet by mouth twice daily. acetaminophen (TYLENOL EXTRA STRENGTH) 500 mg tablet Take 1 tablet by mouth every 6 hours as neededfor pain. hydrOXYzine pamoate (VISTARIL) 25 mg capsule Take 1 capsule by mouth three times daily as needed for anxiety. losartan (COZAAR) 50 mg tablet Take 1 tablet by mouth once daily. simvastatin (ZOCOR) 20 mg tablet Take 1 tablet by mouth daily at bedtime. levothyroxine (SYNTHROID) 88 mcg tablet TAKE ONE TABLET BY MOUTH EVERY DAY ON EMPTY STOMACH atenolol (TENORMIN) 50 mg tablet Take 1 tablet by mouth once daily. multivitamin (MULTIPLE VITAMIN) ORAL Tab Take one(1) tablet daily. ASPIRIN 81 MG TAB Take one(1) tablet daily. No current facility-administered medications for this visit. ALLERGIES Allergen Reactions Novacaine [Procaine] Mental Status Change Laughing and crying constantly- cannot tolerate any rohit Augmentin [Amoxicil* Diarrhea Clindamycin Diarrhea Claims made her nauseated and had diarrhea Dilaudid [Hydromorp* Doxycycline Monohyd* GI Upset Lipitor [Atorvastat* myalgia Lisinopril cough Morphine Penicillins Potassium diarrhea Sulfa (Sulfonamide * Hives Pt states that she has an allergy to sulfa Tetracycline PAST SURGICAL HISTORY Procedure Laterality Date ANESTH OPEN/SURG ARTHRS TOTAL KNEE ARTHROPLASTY b/l knee replacement CHOLECYSTECTOMY sometime in the late 1979' COLONOSCOPY FLX DX W/COLLJ SPEC WHEN PFRMD 8 years ago Colonoscopy COLONOSCOPY FLX DX W/COLLJ SPEC WHEN PFRMD 05/14/2012 Colonoscopy COLONOSCOPY W/BIOPSY SINGLE/MULTIPLE 10/25/10 PAST SURGICAL HISTORY OF 1969 vaginal hysterectomy RPR 1ST INGUN HRNA AGE 7 YRS/> REDUCIBLE Left 05/30/2016 FAMILY HISTORY Problem Relation Age of Onset Heart Father Cancer Father kidney Heart Sister mitral valve prolapse Cancer Maternal Aunt breast cancer Breast Cancer Paternal Aunt Cancer Paternal Grandfather stomach Diabetes Paternal Grandmother Diabetes Sister Diabetes Brother Social History Tobacco Use Smoking status: Never Smokeless tobacco: Never Vaping Use Vaping Use: Never used Substance Use Topics Alcohol use: Yes Comment: red wine occasionally- two times q year Drug use: No REVIEW OF SYSTEMS GENERAL: Negative for Malaise, significant weight loss, fever RESPIRATORY: Negative for cough, wheezing and shortness of breath CARDIOVASCULAR: Negative for chest pain, leg swelling and palpitations GI: Negative for abdominal discomfort, blood in stools or black stools and change in bowel habits : Negative for dysuria, frequency and incontinence MUSCULOSKELETAL: Negative for joint pain or swelling, back pain, and muscle pain. SKIN: Negative for lesions, rash, and itching. HEMATOLOGY/LYMPHOLOGY Negative for prolonged bleeding, bruising easily, and swollen nodes. ENDOCRINE: Negative for cold or heat intolerance, polyuria, polydipsia and goiter. NEURO: negative Physical Exam: Constitutional: Pt is a well developed 87 year old female who is alert, oriented and cooperative Eyes: Following during examination. No redness or drainage. Respiratory: RR normal and nonlabored. Even breathing. No evidence of distress or shortness of breath. Psychology: Patient is engaged during conversation. Normal affect and mood. Does not appear depressed or anxious during encounter. Vascular: Dorsalis pedis and posterior tibial pulses faintly palpable right and not palpable left Capillary Fill time < 5 seconds to digits 1-5 b/l Skin temperature warm to cool proximal to distal b/l Hair growth absent to digits Mild swelling is presnt to b/l lower extremity Neurological: intact light touch/epicritic sensation Vibratory sensation decreased b/l decreased protective sensation + significant neurological deficits Dermatological: Right hallux nail plate has fallen off. Nail bed is healed without signs of infection. Nails 2-5 right and 1-5 left are elongated. Webspaces clean and dry 1-4 b/l. Skin thin, dry, ruborous. No open lesions present. Callus present to left 5th toe. Musculoskeletal/Orthopaedic: Patient has no pain to palpation of b/l feet Foot type is neutral structurally AJ ROM is full with knee extended and flexed 1st MPJ is full when loaded and no pain or crepitus are noted with ROM. MTJ, STJ are full and free of pain and crepitus. +5/5 muscle strength dorsiflexion, plantarflexion, inversion, eversion b/l Radiographs: 3 views rigth foot ordered November 22, 2022: I have personally reviewed and interpreted these XR myself: no acute fracture ASSESSMENT: (S91.209A) Traumatic avulsion of nail plate of toe, initial encounter (primary encounter diagnosis) (B35.1) Onychomycosis (I87.2) Venous insufficiency (L84) Callus PLAN: 1. History and physical examination performed. 2. XR reviewed with patient and interpreted today 3. Discussed appearance of right hallux. No signs of infection since nail fell off. No need for bandage as nail bed is healed. 4. Toenails 1-5 left and 2-5 right debrided in length and thickness 5. Recommend lotion to b/l legs and use of tubigrip 6. Callus reduced to left 5th toe 7. F/u in 3 months or prn Nestor Hughes DPM Podiatry [address] [facility] [id number] Dept: [phone] Dept * Elsy Clifton RN - 11/22/2022 2:08 PM EDT Patient presents with: Left Foot - New, nail care Right Foot - New, nail care, Nail Check Patient presents with family for right big toe injury. Patient was seen on 10/31/22 for red, swollentoe with nail partially pulled up. X-ray was done at that time as well as was placed on Keflex. Patient's nail has since fallen off about a week ago and redness/swelling has gone down. Toenails to bilateral feet are long. Patient is from [place] and per family they are supposed to trim her nails,but they don't. documented in this encounterPromedica [facility]06-27-2023 Miscellaneous Notes* Telephone Encounter - José Miguel Frias MD - 10/31/2022 6:17 PM EDT Patient seen by [facility]. * Telephone Encounter - Cornelia Lane RN - 10/31/2022 1:31 PM EDT Patient's daughter call upset. Patient's bilateral feet have been more swollen the last couple of days. Patient has had issues walking because feet are so painful. One of patient's big toes is black and blue. Patient had asked long term staff to look at it last night and was told that PCP would be notified. When daughter talked to nurse this morning daughter states that there was no notes about bilateral feet and toe. Daughter states that she just talked to nurse and was informed that toe looks infected, it is swollen and warm to the touch. Nurse had advised daughter to call PCP to have orders for antibiotics or to take patient to express care. Daughter scheduled appointment with Nedra this afternoon to have toe assessed. Cornelia Laen RN documented in this encounterPromedica [facility]06-27-2023 Miscellaneous Notes* Result Encounter Note - Nedra Cheema APRN.CNS - 10/31/2022 4:30 PM EDT Please let her know: No fracture is noted of the right great toe, severe degenerative changes of the MTP joint. documented in this encounterPromedica F[facility]06-27-2023 Progress note* Result Encounter Note - Nedra Cheema APRN.CNS - 10/31/2022 4:30 PM EDT Please let her know: No fracture is noted of the right great toe, severe degenerative changes of the MTP joint. [facility] Work Phone: [phone] 154-352806-27-2023 Instructions* Patient Instructions* Nedra Cheema APRN.CNS - 10/31/2022 4:09 PM EDT Okay to wash toe with soap and water. Would recommend applying a Band-Aid over the toenail for now to help keep it in place until seen bypodiatrist. Recommend bringing a tray to her room for now for meals while having difficulty with walking. Take antibiotic as ordered. Take with food documented in this encounterPromedica Fost[facility]06-27-2023 History of Present illness Narrative* Nedra Cheema APRN.CNS - 10/31/2022 3:20 PM EDT SUBJECTIVE: PCP: José Miguel Frias MD ADVANCE DIRECTIVE DISCUSSION Never done HPI Christy Fofana is a 87 year old female. PMH significant for ACTIVE PROBLEM LIST Hypothyroidism, Acquired Venous (Peripheral) Insufficiency Hyperlipidemia Ldl Goal <130 Stasis Dermatitis of Both Legs Hypertension Mitral Valve Prolapse Ddd (Degenerative Disc Disease), Lumbar Dementia With Behavioral Disturbance (Hcc) Major Depressive Disorder With Current Active Episode Presents today regarding toe.Presents with her daughter. Appears right great toe was injured, not sure how this occurred. Present for a day or so. Nail is partly avulsed with surrounding erythema. Notes nailcare is to be done a [place] but appears may not be. Review of Systems Constitutional: Negative. Cardiovascular: Positive for leg swelling. Skin: Positive for wound. Objective BP 132/62 Pulse 72 Resp 16 Wt 82.6 kg (182 lb) BMI 30.29 kg/m Physical Exam Vitals and nursing note reviewed. Constitutional: Appearance: Normal appearance. HENT: Head: Normocephalic and atraumatic. Eyes: Conjunctiva/sclera: Conjunctivae normal. Cardiovascular: Rate and Rhythm: Normal rate and regular rhythm. Pulmonary: Effort: Pulmonary effort is normal. Breath sounds: Normal breath sounds. Feet: Right foot: Toenail Condition: Right toenails are long. Fungal disease present. Left foot: Toenail Condition: Left toenails are long. Fungal disease present. Comments: Partially avulsed right great toenail, surrounding erythema, no current drainage or warmth, dried blood beneath nail Skin: General: Skin is warm and dry. Neurological: Mental Status: She is alert. Mental status is at baseline. ALLERGIES Allergen Reactions Novacaine [Procaine] Mental Status Change Laughing and crying constantly- cannot tolerate any rohit Augmentin [Amoxicil* Diarrhea Clindamycin Diarrhea Claims made her nauseated and had diarrhea Dilaudid [Hydromorp* Doxycycline Monohyd* GI Upset Lipitor [Atorvastat* myalgia Lisinopril cough Morphine Penicillins Potassium diarrhea Sulfa (Sulfonamide * Hives Pt states that she has an allergy to sulfa Tetracycline triamcinolone acetonide (KENALOG) 0.1 % cream Apply 1 application to affected area three times daily. Apply sparingly to leg areas for rash/itching. rivastigmine (EXELON) 4.6 mg/24 hour patch Apply 1 Patch as directed once daily. chlorthalidone (HYGROTON) 25 mg tablet Take 1 tablet by mouth once daily. acetaminophen (TYLENOL EXTRA STRENGTH) 500 mg tablet Take 1 tablet by mouth three times daily. FLUoxetine (PROZAC) 20 mg capsule Take 20 mg by mouth once daily. QUEtiapine (SEROQUEL) 50 mg tablet Take 1 tablet by mouth twice daily. acetaminophen (TYLENOL EXTRA STRENGTH) 500 mg tablet Take 1 tablet by mouth every 6 hours as neededfor pain. hydrOXYzine pamoate (VISTARIL) 25 mg capsule Take 1 capsule by mouth three times daily as needed for anxiety. losartan (COZAAR) 50 mg tablet Take 1 tablet by mouth once daily. simvastatin (ZOCOR) 20 mg tablet Take 1 tablet by mouth daily at bedtime. levothyroxine (SYNTHROID) 88 mcg tablet TAKE ONE TABLET BY MOUTH EVERY DAY ON EMPTY STOMACH atenolol (TENORMIN) 50 mg tablet Take 1 tablet by mouth once daily. multivitamin (MULTIPLE VITAMIN) ORAL Tab Take one(1) tablet daily. ASPIRIN 81 MG TAB Take one(1) tablet daily. cephALEXin (KEFLEX) 500 mg capsule Take 1 capsule by mouth four times daily for 7 days. PAST MEDICAL HISTORY Diagnosis Date Adrenal adenoma 03/04/2012 Anxiety state, unspecified 07/30/2008 DDD (degenerative disc disease), lumbar 10/08/2018 Dementia with behavioral disturbance (HCC) 06/14/2022 Diverticulosis of colon (without mention of hemorrhage) Dysmetabolic syndrome X 09/18/2006 Enthesopathy of hip region 09/18/2006 Eosinophilic colitis 06/10/2012 Essential hypertension, benign Facet arthritis, degenerative, lumbar spine 10/08/2018 Hyperlipidemia 08/06/2012 Hyperlipidemia LDL goal <130 12/16/2015 Hypertension 11/26/2017 Hypothyroidism, acquired Irritable bowel syndrome Left inguinal hernia 05/21/2016 Liver nodule 03/04/2012 Major depressive disorder with current active episode 06/14/2022 Mitral valve disorders 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 Osteoarthritis of knee 08/30/2010 Other and unspecified hyperlipidemia Other specified acquired hypothyroidism Paranoid delusion (HCC) 05/05/2022 Premature atrial beat Premature ventricular beat Radiculopathy of lumbar region 11/04/2018 Rotator cuff syndrome 04/05/2010 Shortness of breath Stasis dermatitis of both legs 08/01/2017 Venous (peripheral) insufficiency 10/29/2007 Social History Tobacco Use Smoking status: Never Smokeless tobacco: Never Vaping Use Vaping Use: Never used Substance Use Topics Alcohol use: Yes Comment: red wine occasionally- two times q year Drug use: No ASSESSMENT/PLAN: 1. Avulsion of toenail, initial encounter - ICD9: 893.0, ICD10: S91.209A (primary diagnosis) - CONSULT TO PODIATRY 2. Injury of right great toe, initial encounter - ICD9: 959.7, ICD10: S99.921A - CONSULT TO PODIATRY - XR FOOT GENERAL 3V AP/LAT/OBL RIGHT 3. Cellulitis of great toe of right foot - ICD9: 681.10, ICD10: L03.031 - CONSULT TO PODIATRY - appt this week with Dr Hughes if possible - CEPHALEXIN 500 MG CAPSULE Nedra Cheema APRN.CNS Medical Decision Making: Problems: Low: Acute, uncomplicated illness or injury Data: Unique test(s) ordered: 1 Risk: Moderate: Drug management Medical Decision Making Level: 3 - Low documented in this encounterPromedica Fost[facility]06-01-2023 History of Present illness Narrative* Bello Caba - 10/05/2022 10:49 AM EDT POPULATION HEALTH NAVIGATION OUTREACH Action/FYI Past due for wellness visit, F/U 12/16/22. LVM Patient Identified by Name and : NO Outreach Outcome/Action Unable to reach patient: Left message Did you use a PCP flex slot to schedule this appointment? N/A Reason for Outreach Care Gap or Scheduling/Wellness visits Payer: Payor: [employer] [facility] / Plan: [employer] / Product Type: PPO / Care Gap Reviewed:: Annual Wellness visit Follow-up appointment Reminder: Reminder note to check Health Maintenance for items below Health Maintenance items due: ADVANCE DIRECTIVE DISCUSSION Never done Navigation Signature: Bello Caba October 05, 2022 10:49 AM documented in this encounterPromedica Fostoria [facility]05-12-2023 History of Present illness Narrative* José Miguel Frias MD - 09/15/2022 4:53 PM EDT This note was created using [employer]. Subjective Christy Fofnaa is a 87 year old female was here with her daughter for follow up of cellulitis of both legs. Erythema and swelling were better. She finished cephalexin. TAC was being applied. Compression stockings prescription was printed, but there was a message that this needed to be sent to the [facility] pharmacy. Prescription was also needed for Tylenol standing order for chronic back pain just ordered via fax. F She was now seen at the [facility] by a mental health provider group, and they are increasing the dose of Seroquel in stages, with good results to date. Review of Systems Constitutional: Negative for appetite change, fatigue, fever and unexpected weight change. Respiratory: Negative for cough and shortness of breath. Cardiovascular: Negative for chest pain. Gastrointestinal: Negative. Genitourinary: Negative for difficulty urinating and frequency. ACTIVE PROBLEM LIST Hypothyroidism, Acquired Venous (Peripheral) Insufficiency Hyperlipidemia Ldl Goal <130 Hypertension Mitral Valve Prolapse Ddd (Degenerative Disc Disease), Lumbar Dementia With Behavioral Disturbance (Hcc) Major Depressive Disorder With Current Active Episode Current Outpatient Medications Medication Sig FLUoxetine (PROZAC) 20 mg capsule Take 20 mg by mouth once daily. QUEtiapine (SEROQUEL) 50 mg tablet Take 1 tablet by mouth twice daily. triamcinolone acetonide (KENALOG) 0.5 % cream Apply 1 application to affected area twice daily for 14 days. For rash/itching. Apply sparingly. Avoid face/skin fold. acetaminophen (TYLENOL EXTRA STRENGTH) 500 mg tablet Take 1 tablet by mouth every 6 hours as neededfor pain. rivastigmine (EXELON) 4.6 mg/24 hour patch Apply 1 Patch as directed once daily. hydrOXYzine pamoate (VISTARIL) 25 mg capsule Take 1 capsule by mouth three times daily as needed for anxiety. losartan (COZAAR) 50 mg tablet Take 1 tablet by mouth once daily. hydroCHLOROthiazide (HYDRODIURIL, ESIDRIX) 25 mg tablet Take 1 tablet by mouth once daily. simvastatin (ZOCOR) 20 mg tablet Take 1 tablet by mouth daily at bedtime. levothyroxine (SYNTHROID) 88 mcg tablet TAKE ONE TABLET BY MOUTH EVERY DAY ON EMPTY STOMACH atenolol (TENORMIN) 50 mg tablet Take 1 tablet by mouth once daily. multivitamin (MULTIPLE VITAMIN) ORAL Tab Take one(1) tablet daily. ASPIRIN 81 MG TAB Take one(1) tablet daily. No current facility-administered medications for this visit. Objective BP 132/70 Pulse 64 Temp 36.6 C (97.8 F) Resp 14 Wt 78.5 kg (173 lb) SpO2 99% BMI 28.79 kg/m Physical Exam Constitutional: General: She is not in acute distress. Appearance: She is not ill-appearing. HENT: Head: Atraumatic. Cardiovascular: Rate and Rhythm: Normal rate and regular rhythm. Heart sounds: No murmur heard. No gallop. Pulmonary: Breath sounds: No wheezing or rales. Musculoskeletal: Right lower le+ Pitting Edema present. Left lower le+ Pitting Edema present. Skin: Findings: Erythema present. Comments: Stasis pigmentation, localized scleroderma, and cobblestoning of both legs, right more than left. No drainage. Neurological: General: No focal deficit present. Mental Status: She is alert. Psychiatric: Behavior: Behavior normal. Assessment and Plan 1. Acute erythematous eruption of skin - ICD9: 695.89, ICD10: L53.9 (primary diagnosis) Improved stasis dermatitis. - Continue TAC, leg elevation. See #2. Confirm order for compression stockings. 2. Bilateral lower extremity edema - ICD9: 782.3, ICD10: R60.0 New diuretic. Discussed medication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 and shortness of breath. Cardiovascular: Positive for leg swelling. Negative for chest pain and palpitations. Gastrointestinal: Negative for abdominal pain, diarrhea, nausea and vomiting. Genitourinary: Negative for difficulty urinating. Musculoskeletal: Negative for arthralgias and back pain. Neurological: Negative for dizziness and headaches. Psychiatric/Behavioral: Positive for agitation and confusion. Negative for hallucinations. ACTIVE PROBLEM LIST Hypothyroidism, Acquired Venous (Peripheral) Insufficiency Hyperlipidemia Ldl Goal <130 Hypertension Mitral Valve Prolapse Ddd (Degenerative Disc Disease), Lumbar Dementia With Behavioral Disturbance (Hcc) Major Depressive Disorder With Current Active Episode PAST MEDICAL HISTORY Diagnosis Date Adrenal adenoma 03/04/2012 Anxiety state, unspecified 07/30/2008 DDD (degenerative disc disease), lumbar 10/08/2018 Dementia with behavioral disturbance (HCC) 06/14/2022 Diverticulosis of colon (without mention of hemorrhage) Dysmetabolic syndrome X 09/18/2006 Enthesopathy of hip region 09/18/2006 Eosinophilic colitis 06/10/2012 Essential hypertension, benign Facet arthritis, degenerative, lumbar spine 10/08/2018 Hyperlipidemia 08/06/2012 Hyperlipidemia LDL goal <130 12/16/2015 Hypertension 11/26/2017 Hypothyroidism, acquired Irritable bowel syndrome Left inguinal hernia 05/21/2016 Liver nodule 03/04/2012 Major depressive disorder with current active episode 06/14/2022 Mitral valve disorders 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 Osteoarthritis of knee 08/30/2010 Other and unspecified hyperlipidemia Other specified acquired hypothyroidism Paranoid delusion (HCC) 05/05/2022 Premature atrial beat Premature ventricular beat Radiculopathy of lumbar region 11/04/2018 Rotator cuff syndrome 04/05/2010 Shortness of breath Stasis dermatitis of both legs 08/01/2017 Venous (peripheral) insufficiency 10/29/2007 PAST SURGICAL HISTORY Procedure Laterality Date ANESTH OPEN/SURG ARTHRS TOTAL KNEE ARTHROPLASTY b/l knee replacement CHOLECYSTECTOMY sometime in the late 1979' COLONOSCOPY FLX DX W/COLLJ SPEC WHEN PFRMD 8 years ago Colonoscopy COLONOSCOPY FLX DX W/COLLJ SPEC WHEN PFRMD 05/14/2012 Colonoscopy COLONOSCOPY W/BIOPSY SINGLE/MULTIPLE 10/25/10 PAST SURGICAL HISTORY OF 1968 vaginal hysterectomy RPR 1ST INGUN HRNA AGE 7 YRS/> REDUCIBLE Left 05/30/2016 Social History Tobacco Use Smoking status: Never Smokeless tobacco: Never Vaping Use Vaping Use: Never used Substance Use Topics Alcohol use: Yes Comment: red wine occasionally- two times q year Drug use: No ALLERGIES Allergen Reactions Novacaine [Procaine] Mental Status Change Laughing and crying constantly- cannot tolerate any rohit Augmentin [Amoxicil* Diarrhea Clindamycin Diarrhea Claims made her nauseated and had diarrhea Dilaudid [Hydromorp* Doxycycline Monohyd* GI Upset Lipitor [Atorvastat* myalgia Lisinopril cough Morphine Penicillins Potassium diarrhea Sulfa (Sulfonamide * Hives Pt states that she has an allergy to sulfa Tetracycline Current Outpatient Medications Medication Sig rivastigmine (EXELON) 4.6 mg/24 hour patch Apply 1 Patch as directed once daily. hydrOXYzine pamoate (VISTARIL) 25 mg capsule Take 25 mg by mouth every 6 hours as needed. losartan (COZAAR) 50 mg tablet Take 1 tablet by mouth once daily. hydroCHLOROthiazide (HYDRODIURIL, ESIDRIX) 25 mg tablet Take 1 tablet by mouth once daily. QUEtiapine (SEROQUEL) 25 mg tablet Take 0.5 tablets by mouth twice daily. simvastatin (ZOCOR) 20 mg tablet Take 1 tablet by mouth daily at bedtime. levothyroxine (SYNTHROID) 88 mcg tablet TAKE ONE TABLET BY MOUTH EVERY DAY ON EMPTY STOMACH atenolol (TENORMIN) 50 mg tablet Take 1 tablet by mouth once daily. multivitamin (MULTIPLE VITAMIN) ORAL Tab Take one(1) tablet daily. ASPIRIN 81 MG TAB Take one(1) tablet daily. No current facility-administered medications for this visit. Objective BP 100/56 (BP Site: Left Arm, BP Position: Sitting, BP Cuff Size: Large Adult) Pulse 68 Temp 36.7 C (98 F) (Temporal) Resp 12 Wt 77.5 kg (170 lb 12.8 oz) BMI 28.42 kg/m Physical Exam Constitutional: General: She is not in acute distress. Appearance: She is not ill-appearing. HENT: Head: Normocephalic. Nose: Nose normal. Eyes: Extraocular Movements: Extraocular movements intact. Conjunctiva/sclera: Conjunctivae normal. Cardiovascular: Rate and Rhythm: Normal rate and regular rhythm. Heart sounds: No murmur heard. No gallop. Pulmonary: Effort: Pulmonary effort is normal. Breath sounds: Normal breath sounds. Abdominal: General: There is no distension. Palpations: Abdomen is soft. Tenderness: There is no abdominal tenderness. Musculoskeletal: Right lower leg: No edema. Left lower leg: No edema. Skin: Findings: Erythema present. Comments: Stasis erythema of both legs. Neurological: General: No focal deficit present. Mental Status: She is alert. Mental status is at baseline. Comments: Oriented x 2. Psychiatric: Attention and Perception: Attention normal. Mood and Affect: Mood normal. Speech: Speech normal. Behavior: Behavior is cooperative. Thought Content: Thought content normal. Cognition and Memory: Cognition is impaired. Memory is impaired. Judgment: Judgment normal. Comments: Insight grossly intact. Assessment and Plan 1. Dementia with behavioral disturbance (HCC) - ICD9: 294.21, ICD10: F03.918 (primary diagnosis) - Keep routine medications the same. - HYDROXYZINE PAMOATE 25 MG CAPSULE. Reduce PRN to TID prn. 2. Major depressive disorder with current active episode, unspecified depression episode severity, unspecified whether recurrent - ICD9: 296.30, ICD10: F32.9 Shared medical decision making. - SERTRALINE 50 MG TABLET. Discussed medication dosage, usage, goals of therapy, and side effects. 3. Venous (peripheral) insufficiency - ICD9: 459.81, ICD10: I87.2 Controlled. 4. Primary hypertension - ICD9: 401.9, ICD10: I10 - good control Patient and family were encouraged to have a family meeting and come to a consensus about what is best for her care. I will complete forms as requested and will assist with any transition needed, if the decision to relocate is made. Otherwise, I recommend a follow up in 6 weeks. José Miguel Frias MD documented in this encounterPromedica [facility]03-03-[facility]23 History of Present illness Narrative* Elsy Bedolla ([employer]) - 07/07/2022 8:07 AM EST Christy Fofana is identified through a medication adherence outreach initiative based on pharmacy claims data from [employer] (insurer) for MACIEJ medication(s) and Statin medication(s). Patient is reviewed 07/07/22 due to medication adherence concerns with the following medications (name, strength, sig): Simvastatin 20mg, every day and Losartan 50mg, every day Per reconcile dispense, last fill date and days supply: Both last filled 05/19/22 for 30 day supply Per call to pharmacy, last picked up date and days supply: Patient resides in facility that handlesmedication. Pt is on time with all medication. Outcome of review/outreach: (choose outcome source and status) - Patient in SNF or other facility per call to pharmacy Elsy Bedolla ([employer]) documented in this encounterPromedica Fost[facility]02-27-2023 Miscellaneous Notes* Telephone Encounter - Elsy Rosales RN - 07/03/2022 11:39 AM EST Pt and daughter were I to see provider on 07/01/22. She was asking when provider changed patch does back to the 4.6 mg. I let her know that was on 06/28/22. She said she is going to have to go talk with the long term to see if she was ever given the higher dose or not. She said at the appointment with Dr Frias he had showed her the Rx for the higher does and that there was a strange notationthat he had never seen before. I could not find what the notation was, but she had said something like for the medication not to be started until later. * Telephone Encounter - Lina Berry LPN - 06/28/2022 1:52 PM EST Attempted to call daughter x2, VM is full, will try again. Spoke to Maria Luisa/Nurse @ [facility], given below dosage change. She does not have any neurology appt on the books for Patient. Will have daughter call office and speak to nurse re: recommendation &appt. Lina Berry LPN * Telephone Encounter - José Miguel Frias MD - 06/28/2022 8:54 AM EST Patient not tolerating dose change. Reduce Exelon patch back to 4.6 mg /24 hours. When is her neurology consult? Requested Prescriptions Signed Prescriptions Disp Refills rivastigmine (EXELON) 4.6 mg/24 hour patch 30 Patch 1 Sig: Apply 1 Patch as directed once daily. Authorizing Provider: JOSÉ MIGUEL FRIAS MD * Telephone Encounter - Sarina Gutierrez LPN - 06/27/2022 4:02 PM EST Pt's daughter Anya calls to report that since 06/14 when rivastigmine patch was increased to 9.5mg, pt has had less lucid moments. Daughter reports pt had an episode last week where pt thought she was in a department store and they would not let her out. Pt is in [facility]. Pt was sure that her was in the parking lot waiting for her even though he is . Anya reports today pt was confused thinking she was in her house and all the people there were in her living room and did not understand why they were there. Pt then became agitated. Anya reports the nurse Ranulfo has noticed the change also and was going to call the office to let provider know but there is not documentation of this call. Daughter is asking if the increase in rivastigmine patch could be causing this change. Please review and advise. Sarina Gutierrez LPN documented in this encounterPromedica Fost[facility]02-25-2023 History of Present illness Narrative* José Miguel Frias MD - 07/01/2022 11:06 AM EST This note was created using MediaVriter. Subjective Christy Fofana is a 87 year old female was here with her daughter. Concern was sinus congestion, and chest congestion for several days. She was supposedly tested at the [facility] for Covid and was negative. She seemed to be dyspneic at times. No fever was noted. There was a message that she had increased confusion, and this was attributed to the increased doseof rivastigmine. Daughter found out that she may not have been receiving the patch, and that the higher dose may not have been initiated yet. Daughter had to picker box operator the ear drops from Dr. Mims as [facility] did not fill the prescription. Patienthad a follow up with Dr. Mims for cerumen impaction. Review of Systems Constitutional: Negative for appetite change, chills and fever. HENT: Negative for congestion and sore throat. Respiratory: Positive for cough. Gastrointestinal: Negative. Neurological: Negative for dizziness and headaches. Psychiatric/Behavioral: Positive for confusion. ACTIVE PROBLEM LIST Hypothyroidism, Acquired Venous (Peripheral) Insufficiency Hyperlipidemia Ldl Goal <130 Hypertension Mitral Valve Prolapse Ddd (Degenerative Disc Disease), Lumbar Dementia With Behavioral Disturbance (Hcc) Major Depressive Disorder With Current Active Episode Current Outpatient Medications Medication Sig rivastigmine (EXELON) 4.6 mg/24 hour patch Apply 1 Patch as directed once daily. hydrOXYzine pamoate (VISTARIL) 25 mg capsule Take 25 mg by mouth every 6 hours as needed. losartan (COZAAR) 50 mg tablet Take 1 tablet by mouth once daily. hydroCHLOROthiazide (HYDRODIURIL, ESIDRIX) 25 mg tablet Take 1 tablet by mouth once daily. QUEtiapine (SEROQUEL) 25 mg tablet Take 0.5 tablets by mouth twice daily. simvastatin (ZOCOR) 20 mg tablet Take 1 tablet by mouth daily at bedtime. levothyroxine (SYNTHROID) 88 mcg tablet TAKE ONE TABLET BY MOUTH EVERY DAY ON EMPTY STOMACH atenolol (TENORMIN) 50 mg tablet Take 1 tablet by mouth once daily. multivitamin (MULTIPLE VITAMIN) ORAL Tab Take one(1) tablet daily. ASPIRIN 81 MG TAB Take one(1) tablet daily. No current facility-administered medications for this visit. Objective BP 118/68 Pulse 80 Temp (!) 35.9 C (96.7 F) Resp 18 Wt 75.8 kg (167 lb) SpO2 96% BMI 27.79 kg/m Physical Exam Constitutional: General: She is not in acute distress. Appearance: She is not diaphoretic. HENT: Right Ear: There is impacted cerumen. Left Ear: There is impacted cerumen. Nose: Congestion present. Right Turbinates: Swollen. Right Sinus: No maxillary sinus tenderness or frontal sinus tenderness. Left Sinus: No maxillary sinus tenderness or frontal sinus tenderness. Comments: Seropurulent drainage, right meatus, and postnasal drainage. Cardiovascular: Rate and Rhythm: Normal rate and regular rhythm. Heart sounds: No murmur heard. No gallop. Pulmonary: Effort: No respiratory distress. Breath sounds: No wheezing or rales. Musculoskeletal: Cervical back: No tenderness. Lymphadenopathy: Cervical: No cervical adenopathy. Neurological: General: No focal deficit present. Mental Status: She is alert. Assessment and Plan 1. Sinusitis, unspecified chronicity, unspecified location - ICD9: 473.9, ICD10: J32.9 (primary diagnosis) - We reviewed her allergies, and this was taken many times before. - CEPHALEXIN 500 MG CAPSULE 2. Dementia with behavioral disturbance (HCC) - ICD9: 294.21, ICD10: F03.918 - Continue rivastigmine 4.6 mg/24h at this time. - Daughter encouraged to discuss concerns with ECF administration. 3. Major depressive disorder with current active episode, unspecified depression episode severity, unspecified whether recurrent - ICD9: 296.30, ICD10: F32.9 - Continue current medication. José Miguel Frias MD documented in this encounterPromedica [facility]02-08-2023 History of Present illness Narrative* José Miguel Frias MD - 06/14/2022 1:19 PM EST This note was created using NoteWriter. Subjective Patient presents with: Establish Care: From Dr. Morales Rob Christy Fofana was here with her daughter. She just lost her and was feeling somewhat down.She was admitted at [facility] in [place] last month for acute mental status change, confusion, paranoid delusion. She was diagnosed with dementia, and started on rivastigmine patch and quetiapine.She was discharged to [facility], but attending/PCP had not adjusted the dose as expected. Her mental status improved on medications, and no adverse effects were noted. She still had episodes of confusion. She did not recognize family members who visited, and she was not clear at times about her awareness of her spouse's passing away. They had asked for a psychiatry evaluation,but was told she needed to see neurology. She sees Dr. Tolbert for cardiology care. The history is provided by a relative. Review of Systems Constitutional: Negative. HENT: Positive for hearing loss. Negative for ear pain. Eyes: Negative. Respiratory: Negative. Cardiovascular: Positive for leg swelling. Negative for chest pain and palpitations. Gastrointestinal: Negative. Genitourinary: Negative. Musculoskeletal: Positive for back pain. Negative for arthralgias, myalgias and neck pain. Skin: Positive for color change. Legs with dry skin, color change. Neurological: Negative for dizziness, tremors, speech difficulty, weakness, light-headedness and headaches. Psychiatric/Behavioral: Positive for confusion and dysphoric mood. Negative for behavioral problemsand sleep disturbance. The patient is not nervous/anxious. PAST MEDICAL HISTORY Diagnosis Date Adrenal adenoma 03/04/2012 Anxiety state, unspecified 07/30/2008 DDD (degenerative disc disease), lumbar 10/08/2018 Diarrhea Diverticulosis of colon (without mention of hemorrhage) Dysmetabolic syndrome X 09/18/2006 Enthesopathy of hip region 09/18/2006 Eosinophilic colitis 06/10/2012 Essential hypertension, benign Facet arthritis, degenerative, lumbar spine 10/08/2018 Hyperlipidemia 08/06/2012 Hyperlipidemia LDL goal <130 12/16/2015 Irritable bowel syndrome Left inguinal hernia 05/21/2016 Liver nodule 03/04/2012 Mitral valve disorders 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 Osteoarthritis of knee 08/30/2010 Other and unspecified hyperlipidemia Other specified acquired hypothyroidism Paranoid delusion (HCC) 05/05/2022 Premature atrial beat Premature ventricular beat Radiculopathy of lumbar region 11/04/2018 Rotator cuff syndrome 04/05/2010 Shortness of breath Stasis dermatitis of both legs 08/01/2017 Venous (peripheral) insufficiency 10/29/2007 PAST SURGICAL HISTORY Procedure Laterality Date ANESTH OPEN/SURG ARTHRS TOTAL KNEE ARTHROPLASTY b/l knee replacement CHOLECYSTECTOMY sometime in the late 1979' COLONOSCOPY FLX DX W/COLLJ SPEC WHEN PFRMD 8 years ago Colonoscopy COLONOSCOPY FLX DX W/COLLJ SPEC WHEN PFRMD 05/14/2012 Colonoscopy COLONOSCOPY W/BIOPSY SINGLE/MULTIPLE 10/25/10 PAST SURGICAL HISTORY OF 1969 vaginal hysterectomy RPR 1ST INGUN HRNA AGE 7 YRS/> REDUCIBLE Left 05/30/2016 FAMILY HISTORY Problem Relation Age of Onset Heart Father Cancer Father kidney Heart Sister mitral valve prolapse Cancer Maternal Aunt breast cancer Breast Cancer Paternal Aunt Cancer Paternal Grandfather stomach Diabetes Paternal Grandmother Diabetes Sister Diabetes Brother Social History Tobacco Use Smoking status: Never Smokeless tobacco: Never Vaping Use Vaping Use: Never used Substance Use Topics Alcohol use: Yes Comment: red wine occasionally- two times q year Drug use: No ALLERGIES Allergen Reactions Novacaine [Procaine] Mental Status Change Laughing and crying constantly- cannot tolerate any rohit Augmentin [Amoxicil* Diarrhea Clindamycin Diarrhea Claims made her nauseated and had diarrhea Dilaudid [Hydromorp* Doxycycline Monohyd* GI Upset Lipitor [Atorvastat* myalgia Lisinopril cough Morphine Penicillins Potassium diarrhea Sulfa (Sulfonamide * Hives Pt states that she has an allergy to sulfa Tetracycline Current Outpatient Medications Medication Sig simvastatin (ZOCOR) 20 mg tablet Take 1 tablet by mouth daily at bedtime. levothyroxine (SYNTHROID) 88 mcg tablet TAKE ONE TABLET BY MOUTH EVERY DAY ON EMPTY STOMACH atenolol (TENORMIN) 50 mg tablet Take 1 tablet by mouth once daily. multivitamin (MULTIPLE VITAMIN) ORAL Tab Take one(1) tablet daily. ASPIRIN 81 MG TAB Take one(1) tablet daily. hydrOXYzine pamoate (VISTARIL) 25 mg capsule Take 25 mg by mouth every 6 hours as needed. rivastigmine (EXELON) 4.6 mg/24 hour patch Apply 1 Patch as directed once daily. losartan (COZAAR) 50 mg tablet Take 1 tablet by mouth once daily. hydroCHLOROthiazide (HYDRODIURIL, ESIDRIX) 25 mg tablet Take 1 tablet by mouth once daily. QUEtiapine (SEROQUEL) 25 mg tablet Take 0.5 tablets by mouth twice daily. No current facility-administered medications for this visit. Objective BP 128/60 (BP Site: Left Arm, BP Position: Sitting, BP Cuff Size: Large Adult) Pulse 76 Temp 36.7 C (98 F) (Temporal) Resp 12 Ht 165.1 cm (5' 5) Wt 74.8 kg (165 lb) BMI 27.46 kg/m Physical Exam Constitutional: General: She is not in acute distress. Appearance: She is not ill-appearing. HENT: Head: Atraumatic. Right Ear: There is impacted cerumen. Left Ear: There is impacted cerumen. Nose: Nose normal. Mouth/Throat: Mouth: Mucous membranes are moist. Eyes: General: No scleral icterus. Extraocular Movements: Extraocular movements intact. Conjunctiva/sclera: Conjunctivae normal. Neck: Vascular: No carotid bruit. Cardiovascular: Rate and Rhythm: Regular rhythm. Comments: Stasis erythema both distal legs. Musculoskeletal: Left shoulder: Decreased range of motion. Decreased strength. Cervical back: Neck supple. Right lower le+ Pitting Edema present. Left lower le+ Pitting Edema present. Lymphadenopathy: Cervical: No cervical adenopathy. Neurological: General: No focal deficit present. Mental Status: She is alert. She is disoriented. Cranial Nerves: Cranial nerves 2-12 are intact. No dysarthria. Sensory: No sensory deficit. Motor: No weakness, tremor or pronator drift. Coordination: Coordination normal. Gait: Gait abnormal. The Mini Cog(c): Word recall=0/3 + Clock drawing=0/2=0/5. (<3 is positive). Assessment and Plan 1. Dementia with behavioral disturbance - ICD9: 294.21, ICD10: F03.918 (primary diagnosis) Patient is new to me. - CONSULT TO NEUROLOGY - RIVASTIGMINE 9.5 MG/24 HOUR TRANSDERMAL PATCH 2. Major depressive disorder with current active episode, unspecified depression episode severity, unspecified whether recurrent - ICD9: 296.30, ICD10: F32.9 - Stable. 3. Primary hypertension - ICD9: 401.9, ICD10: I10 - good control - CBC 4. Hypothyroidism, acquired - ICD9: 244.9, ICD10: E03.9 - continue current dose of Synthroid - TSH BLD 5. Hyperlipidemia LDL goal <130 - ICD9: 272.4, ICD10: E78.5 - to be determined upon return of lab results - Continue current medication. - COMP METABOLIC PANEL - LIPID PANEL BASIC 6. Impacted cerumen of both ears - ICD9: 380.4, ICD10: H61.23 Consent for lavage. Patient did not tolerate this immediately and laveg was stopped immediately. - CONSULT TO ENT José Miguel Frias MD documented in this encounterPromedica Fost[facility]04-19-2022 Miscellaneous Notes* Telephone Encounter - Christy Yin LPN - 08/23/2021 4:25 PM EDT Pt has not seen Dr. Frias. Last seen Dr. Merino 08/2020. Appt with Dr. Frias arrange for 12/08/21. Did have to cancel appt 08/25/21 due to the provider is out ill. * Telephone Encounter - Farhana Payne Pss - 08/23/2021 3:46 PM EDT Patient is currently is out of this medication and needs sent to pharmacy as soon as possible. Farhana Payne Pss documented in this encounterPromedica Fostoria [facility]07-01-2019 History of Past illness Narrative* Problem Noted Date Resolved Date Radiculopathy of lumbar region 11/04/2018 0 06/14/2022 Facet arthritis, degenerative, lumbar spine 08/201806/14/2022 Sciatica of left side 06/27/2018 06/14/2022 Stasis dermatitis of both legs 08/01/2017 0 05/11/2021 Cellulitis of left lower limb 01/31/2017 Pure hypercholesterolemia, unspecified 7 06/14/2022 Neurofibroma of trunk 02/12/2013 09/01/2014 Actinic skin damage 08/23/2012 09/01/2014 Eosinophilic colitis 06/10/2012 05/11/2021 Liver nodule 03/04/2012 06/14/2022 Adrenal adenoma 03/04/2012 06/14/2022 Dyspnea 05/23/2011 06/14/2022 Palpitations 05/23/2011 02/11/2018 Diverticulosis of colon (without mention of hemo rrhage) 10/25/2010 06/14/2022 Melanocytic Nevus of trunk: mid lower back: irritated--?atypical---IDN type 10/05/2010 09/01/2014 Atypical(?) nevus of mid lower back 10/05/2010 09/01/2014 Irritable bowel syndrome 08/30/2010 023 Osteoarthritis of knee 08/30/2010 3 Ganglion of tendon 08/30/2010 09/01/2014 Benign neoplasm of eyelid, including canthus 10/200802/12/2013 Other seborrheic dermatitis 08/10/200801/2013 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 08/10/2008 09/01/2014 Dysmetabolic syndrome X 09/18/2006 06/14/19 23 Disorders of bursae and tend ons in shoulder region, unspecified 09/18/2006 09/01/2014 SOLAR LENTIGINES 02/12/2006 02/12/2013 ESPARZA ANGIOMA 02/12/2006 02/12/2013 IRRITATED//INFLAMED SEBORRHEIC KERATOSES 005 09/01/2014 Viral warts, unspecified 03/17/2005 013 Other seborrheic keratosis 03/17/200502/12 ACTINIC DAMAGE///CHR SOLAR SKIN DAMAGE NOS 03/1702/12/2013 documented as of this encounter (statuses as of 06/14/2022) [facility] History of Past illness Narrative* Problem Noted Date Resolved Date Radiculopathy of lumbar region 11/04/2018 0 06/14/2022 Facet arthritis, degenerative, lumbar spine 08/201806/14/2022 Sciatica of left side 06/27/2018 06/14/2022 Stasis dermatitis of both legs 08/01/2017 0 05/11/2021 Cellulitis of left lower limb 01/31/2017 Pure hypercholesterolemia, unspecified 7 06/14/2022 Neurofibroma of trunk 02/12/2013 09/01/2014 Actinic skin damage 08/23/2012 09/01/2014 Eosinophilic colitis 06/10/2012 05/11/2021 Liver nodule 03/04/2012 06/14/2022 Adrenal adenoma 03/04/2012 06/14/2022 Dyspnea 05/23/2011 06/14/2022 Palpitations 05/23/2011 02/11/2018 Diverticulosis of colon (without mention of hemo rrhage) 10/25/2010 06/14/2022 Melanocytic Nevus of trunk: mid lower back: irritated--?atypical---IDN type 10/05/2010 09/01/2014 Atypical(?) nevus of mid lower back 10/05/2010 09/01/2014 Irritable bowel syndrome 08/30/2010 023 Osteoarthritis of knee 08/30/2010 3 Ganglion of tendon 08/30/2010 09/01/2014 Benign neoplasm of eyelid, including canthus 10/200802/12/2013 Other seborrheic dermatitis 08/10/200801/2013 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 08/10/2008 09/01/2014 Dysmetabolic syndrome X 09/18/2006 06/14/19 23 Disorders of bursae and tend ons in shoulder region, unspecified 09/18/2006 09/01/2014 SOLAR LENTIGINES 02/12/2006 02/12/2013 ESPARAZ ANGIOMA 02/12/2006 02/12/2013 IRRITATED//INFLAMED SEBORRHEIC KERATOSES 005 09/01/2014 Viral warts, unspecified 03/17/2005 013 Other seborrheic keratosis 03/17/200502/12 ACTINIC DAMAGE///CHR SOLAR SKIN DAMAGE NOS 03/1702/12/2013 documented as of this encounter (statuses as of 07/02/2022) [facility] of Past illness Narrative* Problem Noted Date Resolved Date Radiculopathy of lumbar region 11/04/2018 0 06/14/2022 Facet arthritis, degenerative, lumbar spine 08/201806/14/2022 Sciatica of left side 06/27/2018 06/14/2022 Stasis dermatitis of both legs 08/01/2017 0 05/11/2021 Cellulitis of left lower limb 01/31/2017 Pure hypercholesterolemia, unspecified 7 06/14/2022 Neurofibroma of trunk 02/12/2013 09/01/2014 Actinic skin damage 08/23/2012 09/01/2014 Eosinophilic colitis 06/10/2012 05/11/2021 Liver nodule 03/04/2012 06/14/2022 Adrenal adenoma 03/04/2012 06/14/2022 Dyspnea 05/23/2011 06/14/2022 Palpitations 05/23/2011 02/11/2018 Diverticulosis of colon (without mention of hemo rrhage) 10/25/2010 06/14/2022 Melanocytic Nevus of trunk: mid lower back: irritated--?atypical---IDN type 10/05/2010 09/01/2014 Atypical(?) nevus of mid lower back 10/05/2010 09/01/2014 Irritable bowel syndrome 08/30/2010 023 Osteoarthritis of knee 08/30/2010 3 Ganglion of tendon 08/30/2010 09/01/2014 Benign neoplasm of eyelid, including canthus 10/200802/12/2013 Other seborrheic dermatitis 08/10/200801/2013 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 08/10/2008 09/01/2014 Dysmetabolic syndrome X 09/18/2006 06/14/19 23 Disorders of bursae and tend ons in shoulder region, unspecified 09/18/2006 09/01/2014 SOLAR LENTIGINES 02/12/2006 02/12/2013 ESPARZA ANGIOMA 02/12/2006 02/12/2013 IRRITATED//INFLAMED SEBORRHEIC KERATOSES 005 09/01/2014 Viral warts, unspecified 03/17/2005 013 Other seborrheic keratosis 03/17/200502/12 ACTINIC DAMAGE///CHR SOLAR SKIN DAMAGE NOS 03/1702/12/2013 documented as of this encounter (statuses as of 07/03/2022) [facility] History of Past illness Narrative* Problem Noted Date Resolved Date Radiculopathy of lumbar region 11/04/2018 0 06/14/2022 Facet arthritis, degenerative, lumbar spine 08/201806/14/2022 Sciatica of left side 06/27/2018 06/14/2022 Stasis dermatitis of both legs 08/01/2017 0 05/11/2021 Cellulitis of left lower limb 01/31/2017 Pure hypercholesterolemia, unspecified 7 06/14/2022 Neurofibroma of trunk 02/12/2013 09/01/2014 Actinic skin damage 08/23/2012 09/01/2014 Eosinophilic colitis 06/10/2012 05/11/2021 Liver nodule 03/04/2012 06/14/2022 Adrenal adenoma 03/04/2012 06/14/2022 Dyspnea 05/23/2011 06/14/2022 Palpitations 05/23/2011 02/11/2018 Diverticulosis of colon (without mention of hemo rrhage) 10/25/2010 06/14/2022 Melanocytic Nevus of trunk: mid lower back: irritated--?atypical---IDN type 10/05/2010 09/01/2014 Atypical(?) nevus of mid lower back 10/05/2010 09/01/2014 Irritable bowel syndrome 08/30/2010 023 Osteoarthritis of knee 08/30/2010 3 Ganglion of tendon 08/30/2010 09/01/2014 Benign neoplasm of eyelid, including canthus 10/200802/12/2013 Other seborrheic dermatitis 08/10/200801/2013 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 08/10/2008 09/01/2014 Dysmetabolic syndrome X 09/18/2006 06/14/19 23 Disorders of bursae and tend ons in shoulder region, unspecified 09/18/2006 09/01/2014 SOLAR LENTIGINES 02/12/2006 02/12/2013 ESPARZA ANGIOMA 02/12/2006 02/12/2013 IRRITATED//INFLAMED SEBORRHEIC KERATOSES 005 09/01/2014 Viral warts, unspecified 03/17/2005 013 Other seborrheic keratosis 03/17/200502/12 ACTINIC DAMAGE///CHR SOLAR SKIN DAMAGE NOS 03/1702/12/2013 documented as of this encounter (statuses as of 07/07/2022) [facility] History of Past illness Narrative* Problem Noted Date Resolved Date Radiculopathy of lumbar region 11/04/2018 0 06/14/2022 Facet arthritis, degenerative, lumbar spine 08/201806/14/2022 Sciatica of left side 06/27/2018 06/14/2022 Stasis dermatitis of both legs 08/01/2017 0 05/11/2021 Cellulitis of left lower limb 01/31/2017 Pure hypercholesterolemia, unspecified 7 06/14/2022 Neurofibroma of trunk 02/12/2013 09/01/2014 Actinic skin damage 08/23/2012 09/01/2014 Eosinophilic colitis 06/10/2012 05/11/2021 Liver nodule 03/04/2012 06/14/2022 Adrenal adenoma 03/04/2012 06/14/2022 Dyspnea 05/23/2011 06/14/2022 Palpitations 05/23/2011 02/11/2018 Diverticulosis of colon (without mention of hemo rrhage) 10/25/2010 06/14/2022 Melanocytic Nevus of trunk: mid lower back: irritated--?atypical---IDN type 10/05/2010 09/01/2014 Atypical(?) nevus of mid lower back 10/05/2010 09/01/2014 Irritable bowel syndrome 08/30/2010 023 Osteoarthritis of knee 08/30/2010 3 Ganglion of tendon 08/30/2010 09/01/2014 Benign neoplasm of eyelid, including canthus 10/200802/12/2013 Other seborrheic dermatitis 08/10/200801/2013 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 08/10/2008 09/01/2014 Dysmetabolic syndrome X 09/18/2006 06/14/19 23 Disorders of bursae and tend ons in shoulder region, unspecified 09/18/2006 09/01/2014 SOLAR LENTIGINES 02/12/2006 02/12/2013 ESPARZA ANGIOMA 02/12/2006 02/12/2013 IRRITATED//INFLAMED SEBORRHEIC KERATOSES 005 09/01/2014 Viral warts, unspecified 03/17/2005 013 Other seborrheic keratosis 03/17/200502/12 ACTINIC DAMAGE///CHR SOLAR SKIN DAMAGE NOS 03/1702/12/2013 documented as of this encounter (statuses as of 07/26/2022) [facility] History of Past illness Narrative* Problem Noted Date Resolved Date Radiculopathy of lumbar region 11/04/2018 0 06/14/2022 Facet arthritis, degenerative, lumbar spine 08/201806/14/2022 Sciatica of left side 06/27/2018 06/14/2022 Stasis dermatitis of both legs 08/01/2017 0 05/11/2021 Cellulitis of left lower limb 01/31/2017 Pure hypercholesterolemia, unspecified 7 06/14/2022 Neurofibroma of trunk 02/12/2013 09/01/2014 Actinic skin damage 08/23/2012 09/01/2014 Eosinophilic colitis 06/10/2012 05/11/2021 Liver nodule 03/04/2012 06/14/2022 Adrenal adenoma 03/04/2012 06/14/2022 Dyspnea 05/23/2011 06/14/2022 Palpitations 05/23/2011 02/11/2018 Diverticulosis of colon (without mention of hemo rrhage) 10/25/2010 06/14/2022 Melanocytic Nevus of trunk: mid lower back: irritated--?atypical---IDN type 10/05/2010 09/01/2014 Atypical(?) nevus of mid lower back 10/05/2010 09/01/2014 Irritable bowel syndrome 08/30/2010 023 Osteoarthritis of knee 08/30/2010 3 Ganglion of tendon 08/30/2010 09/01/2014 Benign neoplasm of eyelid, including canthus 10/200802/12/2013 Other seborrheic dermatitis 08/10/200801/2013 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 08/10/2008 09/01/2014 Dysmetabolic syndrome X 09/18/2006 06/14/19 23 Disorders of bursae and tend ons in shoulder region, unspecified 09/18/2006 09/01/2014 SOLAR LENTIGINES 02/12/2006 02/12/2013 ESPARZA ANGIOMA 02/12/2006 02/12/2013 IRRITATED//INFLAMED SEBORRHEIC KERATOSES 005 09/01/2014 Viral warts, unspecified 03/17/2005 013 Other seborrheic keratosis 03/17/200502/12 ACTINIC DAMAGE///CHR SOLAR SKIN DAMAGE NOS 03/1702/12/2013 documented as of this encounter (statuses as of 07/31/2022) [facility] History of Past illness Narrative* Problem Noted Date Resolved Date Radiculopathy of lumbar region 11/04/2018 0 06/14/2022 Facet arthritis, degenerative, lumbar spine 08/201806/14/2022 Sciatica of left side 06/27/2018 06/14/2022 Stasis dermatitis of both legs 08/01/2017 0 05/11/2021 Cellulitis of left lower limb 01/31/2017 Pure hypercholesterolemia, unspecified 7 06/14/2022 Neurofibroma of trunk 02/12/2013 09/01/2014 Actinic skin damage 08/23/2012 09/01/2014 Eosinophilic colitis 06/10/2012 05/11/2021 Liver nodule 03/04/2012 06/14/2022 Adrenal adenoma 03/04/2012 06/14/2022 Dyspnea 05/23/2011 06/14/2022 Palpitations 05/23/2011 02/11/2018 Diverticulosis of colon (without mention of hemo rrhage) 10/25/2010 06/14/2022 Melanocytic Nevus of trunk: mid lower back: irritated--?atypical---IDN type 10/05/2010 09/01/2014 Atypical(?) nevus of mid lower back 10/05/2010 09/01/2014 Irritable bowel syndrome 08/30/2010 023 Osteoarthritis of knee 08/30/2010 3 Ganglion of tendon 08/30/2010 09/01/2014 Benign neoplasm of eyelid, including canthus 10/200802/12/2013 Other seborrheic dermatitis 08/10/200801/2013 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 08/10/2008 09/01/2014 Dysmetabolic syndrome X 09/18/2006 06/14/19 23 Disorders of bursae and tend ons in shoulder region, unspecified 09/18/2006 09/01/2014 SOLAR LENTIGINES 02/12/2006 02/12/2013 ESPARZA ANGIOMA 02/12/2006 02/12/2013 IRRITATED//INFLAMED SEBORRHEIC KERATOSES 005 09/01/2014 Viral warts, unspecified 03/17/2005 013 Other seborrheic keratosis 03/17/200502/12 ACTINIC DAMAGE///CHR SOLAR SKIN DAMAGE NOS 03/1702/12/2013 documented as of this encounter (statuses as of 08/01/2022) [facility] History of Past illness Narrative* Problem Noted Date Resolved Date Radiculopathy of lumbar region 11/04/2018 0 06/14/2022 Facet arthritis, degenerative, lumbar spine 08/201806/14/2022 Sciatica of left side 06/27/2018 06/14/2022 Stasis dermatitis of both legs 08/01/2017 0 05/11/2021 Cellulitis of left lower limb 01/31/2017 Pure hypercholesterolemia, unspecified 7 06/14/2022 Neurofibroma of trunk 02/12/2013 09/01/2014 Actinic skin damage 08/23/2012 09/01/2014 Eosinophilic colitis 06/10/2012 05/11/2021 Liver nodule 03/04/2012 06/14/2022 Adrenal adenoma 03/04/2012 06/14/2022 Dyspnea 05/23/2011 06/14/2022 Palpitations 05/23/2011 02/11/2018 Diverticulosis of colon (without mention of hemo rrhage) 10/25/2010 06/14/2022 Melanocytic Nevus of trunk: mid lower back: irritated--?atypical---IDN type 10/05/2010 09/01/2014 Atypical(?) nevus of mid lower back 10/05/2010 09/01/2014 Irritable bowel syndrome 08/30/2010 023 Osteoarthritis of knee 08/30/2010 3 Ganglion of tendon 08/30/2010 09/01/2014 Benign neoplasm of eyelid, including canthus 10/200802/12/2013 Other seborrheic dermatitis 08/10/2008 10/01/2013 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 08/10/2008 09/01/2014 Dysmetabolic syndrome X 09/18/2006 06/14/19 23 Disorders of bursae and tend ons in shoulder region, unspecified 09/18/2006 09/01/2014 SOLAR LENTIGINES 02/12/2006 02/12/2013 ESPARZA ANGIOMA 02/12/2006 02/12/2013 IRRITATED//INFLAMED SEBORRHEIC KERATOSES 005 09/01/2014 Viral warts, unspecified 03/17/2005 013 Other seborrheic keratosis 03/17/200502/12 ACTINIC DAMAGE///CHR SOLAR SKIN DAMAGE NOS 03/1702/12/2013 documented as of this encounter (statuses as of 08/02/2022) [facility] History of Past illness Narrative* Problem Noted Date Resolved Date Radiculopathy of lumbar region 11/04/2018 0 06/14/2022 Facet arthritis, degenerative, lumbar spine 08/201806/14/2022 Sciatica of left side 06/27/2018 06/14/2022 Stasis dermatitis of both legs 08/01/2017 0 05/11/2021 Cellulitis of left lower limb 01/31/2017 Pure hypercholesterolemia, unspecified 7 06/14/2022 Neurofibroma of trunk 02/12/2013 09/01/2014 Actinic skin damage 08/23/2012 09/01/2014 Eosinophilic colitis 06/10/2012 05/11/2021 Liver nodule 03/04/2012 06/14/2022 Adrenal adenoma 03/04/2012 06/14/2022 Dyspnea 05/23/2011 06/14/2022 Palpitations 05/23/2011 02/11/2018 Diverticulosis of colon (without mention of hemo rrhage) 10/25/2010 06/14/2022 Melanocytic Nevus of trunk: mid lower back: irritated--?atypical---IDN type 10/05/2010 09/01/2014 Atypical(?) nevus of mid lower back 10/05/2010 09/01/2014 Irritable bowel syndrome 08/30/2010 023 Osteoarthritis of knee 08/30/2010 3 Ganglion of tendon 08/30/2010 09/01/2014 Benign neoplasm of eyelid, including canthus 10/200802/12/2013 Other seborrheic dermatitis 08/10/200801/2013 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 08/10/2008 09/01/2014 Dysmetabolic syndrome X 09/18/2006 06/14/19 23 Disorders of bursae and tend ons in shoulder region, unspecified 09/18/2006 09/01/2014 SOLAR LENTIGINES 02/12/2006 02/12/2013 ESPARZA ANGIOMA 02/12/2006 02/12/2013 IRRITATED//INFLAMED SEBORRHEIC KERATOSES 005 09/01/2014 Viral warts, unspecified 03/17/2005 013 Other seborrheic keratosis 03/17/200502/12 ACTINIC DAMAGE///CHR SOLAR SKIN DAMAGE NOS 03/1702/12/2013 documented as of this encounter (statuses as of 08/02/2022) [facility] History of Past illness Narrative* Problem Noted Date Resolved Date Radiculopathy of lumbar region 11/04/2018 0 06/14/2022 Facet arthritis, degenerative, lumbar spine 08/201806/14/2022 Sciatica of left side 06/27/2018 06/14/2022 Stasis dermatitis of both legs 08/01/2017 0 05/11/2021 Cellulitis of left lower limb 01/31/2017 Pure hypercholesterolemia, unspecified 7 06/14/2022 Neurofibroma of trunk 02/12/2013 09/01/2014 Actinic skin damage 08/23/2012 09/01/2014 Eosinophilic colitis 06/10/2012 05/11/2021 Liver nodule 03/04/2012 06/14/2022 Adrenal adenoma 03/04/2012 06/14/2022 Dyspnea 05/23/2011 06/14/2022 Palpitations 05/23/2011 02/11/2018 Diverticulosis of colon (without mention of hemo rrhage) 10/25/2010 06/14/2022 Melanocytic Nevus of trunk: mid lower back: irritated--?atypical---IDN type 10/05/2010 09/01/2014 Atypical(?) nevus of mid lower back 10/05/2010 09/01/2014 Irritable bowel syndrome 08/30/2010 023 Osteoarthritis of knee 08/30/2010 3 Ganglion of tendon 08/30/2010 09/01/2014 Benign neoplasm of eyelid, including canthus 10/200802/12/2013 Other seborrheic dermatitis 08/10/200801/2013 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 08/10/2008 09/01/2014 Dysmetabolic syndrome X 09/18/2006 06/14/19 23 Disorders of bursae and tend ons in shoulder region, unspecified 09/18/2006 09/01/2014 SOLAR LENTIGINES 02/12/2006 02/12/2013 ESPARZA ANGIOMA 02/12/2006 02/12/2013 IRRITATED//INFLAMED SEBORRHEIC KERATOSES 005 09/01/2014 Viral warts, unspecified 03/17/2005 013 Other seborrheic keratosis 03/17/200502/12 ACTINIC DAMAGE///CHR SOLAR SKIN DAMAGE NOS 03/1702/12/2013 documented as of this encounter (statuses as of 08/03/2022) [facility] History of Past illness Narrative* Problem Noted Date Resolved Date Radiculopathy of lumbar region 11/04/2018 0 06/14/2022 Facet arthritis, degenerative, lumbar spine 08/201806/14/2022 Sciatica of left side 06/27/2018 06/14/2022 Stasis dermatitis of both legs 08/01/2017 0 05/11/2021 Cellulitis of left lower limb 01/31/2017 Pure hypercholesterolemia, unspecified 7 06/14/2022 Neurofibroma of trunk 02/12/2013 09/01/2014 Actinic skin damage 08/23/2012 09/01/2014 Eosinophilic colitis 06/10/2012 05/11/2021 Liver nodule 03/04/2012 06/14/2022 Adrenal adenoma 03/04/2012 06/14/2022 Dyspnea 05/23/2011 06/14/2022 Palpitations 05/23/2011 02/11/2018 Diverticulosis of colon (without mention of hemo rrhage) 10/25/2010 06/14/2022 Melanocytic Nevus of trunk: mid lower back: irritated--?atypical---IDN type 10/05/2010 09/01/2014 Atypical(?) nevus of mid lower back 10/05/2010 09/01/2014 Irritable bowel syndrome 08/30/2010 023 Osteoarthritis of knee 08/30/2010 3 Ganglion of tendon 08/30/2010 09/01/2014 Benign neoplasm of eyelid, including canthus 10/200802/12/2013 Other seborrheic dermatitis 08/10/200801/2013 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 08/10/2008 09/01/2014 Dysmetabolic syndrome X 09/18/2006 06/14/19 23 Disorders of bursae and tend ons in shoulder region, unspecified 09/18/2006 09/01/2014 SOLAR LENTIGINES 02/12/2006 02/12/2013 ESPARZA ANGIOMA 02/12/2006 02/12/2013 IRRITATED//INFLAMED SEBORRHEIC KERATOSES 005 09/01/2014 Viral warts, unspecified 03/17/2005 013 Other seborrheic keratosis 03/17/200502/12 ACTINIC DAMAGE///CHR SOLAR SKIN DAMAGE NOS 03/1702/12/2013 documented as of this encounter (statuses as of 08/03/2022) [facility] History of Past illness Narrative* Problem Noted Date Resolved Date Radiculopathy of lumbar region 11/04/2018 0 06/14/2022 Facet arthritis, degenerative, lumbar spine 08/201806/14/2022 Sciatica of left side 06/27/2018 06/14/2022 Stasis dermatitis of both legs 08/01/2017 0 05/11/2021 Cellulitis of left lower limb 01/31/2017 Pure hypercholesterolemia, unspecified 7 06/14/2022 Neurofibroma of trunk 02/12/2013 09/01/2014 Actinic skin damage 08/23/2012 09/01/2014 Eosinophilic colitis 06/10/2012 05/11/2021 Liver nodule 03/04/2012 06/14/2022 Adrenal adenoma 03/04/2012 06/14/2022 Dyspnea 05/23/2011 06/14/2022 Palpitations 05/23/2011 02/11/2018 Diverticulosis of colon (without mention of hemo rrhage) 10/25/2010 06/14/2022 Melanocytic Nevus of trunk: mid lower back: irritated--?atypical---IDN type 10/05/2010 09/01/2014 Atypical(?) nevus of mid lower back 10/05/2010 09/01/2014 Irritable bowel syndrome 08/30/2010 023 Osteoarthritis of knee 08/30/2010 3 Ganglion of tendon 08/30/2010 09/01/2014 Benign neoplasm of eyelid, including canthus 10/200802/12/2013 Other seborrheic dermatitis 08/10/200801/2013 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 08/10/2008 09/01/2014 Dysmetabolic syndrome X 09/18/2006 06/14/19 23 Disorders of bursae and tend ons in shoulder region, unspecified 09/18/2006 09/01/2014 SOLAR LENTIGINES 02/12/2006 02/12/2013 ESPARZA ANGIOMA 02/12/2006 02/12/2013 IRRITATED//INFLAMED SEBORRHEIC KERATOSES 005 09/01/2014 Viral warts, unspecified 03/17/2005 013 Other seborrheic keratosis 03/17/200502/12 ACTINIC DAMAGE///CHR SOLAR SKIN DAMAGE NOS 03/1702/12/2013 documented as of this encounter (statuses as of 08/15/2022) [facility] History of Past illness Narrative* Problem Noted Date Resolved Date Radiculopathy of lumbar region 11/04/2018 0 06/14/2022 Facet arthritis, degenerative, lumbar spine 08/201806/14/2022 Sciatica of left side 06/27/2018 06/14/2022 Stasis dermatitis of both legs 08/01/2017 0 05/11/2021 Cellulitis of left lower limb 01/31/2017 Pure hypercholesterolemia, unspecified 7 06/14/2022 Neurofibroma of trunk 02/12/2013 09/01/2014 Actinic skin damage 08/23/2012 09/01/2014 Eosinophilic colitis 06/10/2012 05/11/2021 Liver nodule 03/04/2012 06/14/2022 Adrenal adenoma 03/04/2012 06/14/2022 Dyspnea 05/23/2011 06/14/2022 Palpitations 05/23/2011 02/11/2018 Diverticulosis of colon (without mention of hemo rrhage) 10/25/2010 06/14/2022 Melanocytic Nevus of trunk: mid lower back: irritated--?atypical---IDN type 10/05/2010 09/01/2014 Atypical(?) nevus of mid lower back 10/05/2010 09/01/2014 Irritable bowel syndrome 08/30/2010 023 Osteoarthritis of knee 08/30/2010 3 Ganglion of tendon 08/30/2010 09/01/2014 Benign neoplasm of eyelid, including canthus 10/200802/12/2013 Other seborrheic dermatitis 08/10/200801/2013 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 08/10/2008 09/01/2014 Dysmetabolic syndrome X 09/18/2006 06/14/19 23 Disorders of bursae and tend ons in shoulder region, unspecified 09/18/2006 09/01/2014 SOLAR LENTIGINES 02/12/2006 02/12/2013 ESPARZA ANGIOMA 02/12/2006 02/12/2013 IRRITATED//INFLAMED SEBORRHEIC KERATOSES 005 09/01/2014 Viral warts, unspecified 03/17/2005 10/09/2 013 Other seborrheic keratosis 03/17/200502/12 ACTINIC DAMAGE///CHR SOLAR SKIN DAMAGE NOS 03/1702/12/2013 documented as of this encounter (statuses as of 09/05/2022) [facility] History of Past illness Narrative* Problem Noted Date Resolved Date Radiculopathy of lumbar region 11/04/2018 0 06/14/2022 Facet arthritis, degenerative, lumbar spine 08/201806/14/2022 Sciatica of left side 06/27/2018 06/14/2022 Stasis dermatitis of both legs 08/01/2017 0 05/11/2021 Cellulitis of left lower limb 01/31/2017 Pure hypercholesterolemia, unspecified 7 06/14/2022 Neurofibroma of trunk 02/12/2013 09/01/2014 Actinic skin damage 08/23/2012 09/01/2014 Eosinophilic colitis 06/10/2012 05/11/2021 Liver nodule 03/04/2012 06/14/2022 Adrenal adenoma 03/04/2012 06/14/2022 Dyspnea 05/23/2011 06/14/2022 Palpitations 05/23/2011 02/11/2018 Diverticulosis of colon (without mention of hemo rrhage) 10/25/2010 06/14/2022 Melanocytic Nevus of trunk: mid lower back: irritated--?atypical---IDN type 10/05/2010 09/01/2014 Atypical(?) nevus of mid lower back 10/05/2010 09/01/2014 Irritable bowel syndrome 08/30/2010 023 Osteoarthritis of knee 08/30/2010 3 Ganglion of tendon 08/30/2010 09/01/2014 Benign neoplasm of eyelid, including canthus 10/200802/12/2013 Other seborrheic dermatitis 08/10/200801/2013 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 08/10/2008 09/01/2014 Dysmetabolic syndrome X 09/18/2006 06/14/19 23 Disorders of bursae and tend ons in shoulder region, unspecified 09/18/2006 09/01/2014 SOLAR LENTIGINES 02/12/2006 02/12/2013 ESPARZA ANGIOMA 02/12/2006 02/12/2013 IRRITATED//INFLAMED SEBORRHEIC KERATOSES 005 09/01/2014 Viral warts, unspecified 03/17/2005 013 Other seborrheic keratosis 03/17/200502/12 ACTINIC DAMAGE///CHR SOLAR SKIN DAMAGE NOS 03/1702/12/2013 documented as of this encounter (statuses as of 09/16/2022) [facility] History of Past illness Narrative* Problem Noted Date Resolved Date Radiculopathy of lumbar region 11/04/2018 0 06/14/2022 Facet arthritis, degenerative, lumbar spine 08/201806/14/2022 Sciatica of left side 06/27/2018 06/14/2022 Stasis dermatitis of both legs 08/01/2017 0 05/11/2021 Cellulitis of left lower limb 01/31/2017 Pure hypercholesterolemia, unspecified 7 06/14/2022 Neurofibroma of trunk 02/12/2013 09/01/2014 Actinic skin damage 08/23/2012 09/01/2014 Eosinophilic colitis 06/10/2012 05/11/2021 Liver nodule 03/04/2012 06/14/2022 Adrenal adenoma 03/04/2012 06/14/2022 Dyspnea 05/23/2011 06/14/2022 Palpitations 05/23/2011 02/11/2018 Diverticulosis of colon (without mention of hemo rrhage) 10/25/2010 06/14/2022 Melanocytic Nevus of trunk: mid lower back: irritated--?atypical---IDN type 10/05/2010 09/01/2014 Atypical(?) nevus of mid lower back 10/05/2010 09/01/2014 Irritable bowel syndrome 08/30/2010 023 Osteoarthritis of knee 08/30/2010 3 Ganglion of tendon 08/30/2010 09/01/2014 Benign neoplasm of eyelid, including canthus 10/200802/12/2013 Other seborrheic dermatitis 08/10/2008 10/01/2013 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 08/10/2008 09/01/2014 Dysmetabolic syndrome X 09/18/2006 06/14/19 23 Disorders of bursae and tend ons in shoulder region, unspecified 09/18/2006 09/01/2014 SOLAR LENTIGINES 02/12/2006 02/12/2013 ESPARZA ANGIOMA 02/12/2006 02/12/2013 IRRITATED//INFLAMED SEBORRHEIC KERATOSES 005 09/01/2014 Viral warts, unspecified 03/17/2005 013 Other seborrheic keratosis 03/17/200502/12 ACTINIC DAMAGE///CHR SOLAR SKIN DAMAGE NOS 03/1702/12/2013 documented as of this encounter (statuses as of 10/05/2022) [facility] History of Past illness Narrative* Problem Noted Date Resolved Date Radiculopathy of lumbar region 11/04/2018 0 06/14/2022 Facet arthritis, degenerative, lumbar spine 08/201806/14/2022 Sciatica of left side 06/27/2018 06/14/2022 Cellulitis of left lower limb 01/31/2017 Pure hypercholesterolemia, unspecified 7 06/14/2022 Neurofibroma of trunk 02/12/2013 09/01/2014 Actinic skin damage 08/23/2012 09/01/2014 Eosinophilic colitis 06/10/2012 05/11/2021 Liver nodule 03/04/2012 06/14/2022 Adrenal adenoma 03/04/2012 06/14/2022 Dyspnea 05/23/2011 06/14/2022 Palpitations 05/23/2011 02/11/2018 Diverticulosis of colon (without mention of hemo rrhage) 10/25/2010 06/14/2022 Melanocytic Nevus of trunk: mid lower back: irritated--?atypical---IDN type 10/05/2010 09/01/2014 Atypical(?) nevus of mid lower back 10/05/2010 09/01/2014 Irritable bowel syndrome 08/30/2010 023 Osteoarthritis of knee 08/30/2010 3 Ganglion of tendon 08/30/2010 09/01/2014 Benign neoplasm of eyelid, including canthus 10/200802/12/2013 Other seborrheic dermatitis 08/10/2008 1001/2013 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 08/10/2008 09/01/2014 Dysmetabolic syndrome X 09/18/2006 06/14/19 23 Disorders of bursae and tend ons in shoulder region, unspecified 09/18/2006 09/01/2014 SOLAR LENTIGINES 02/12/2006 02/12/2013 ESPARZA ANGIOMA 02/12/2006 02/12/2013 IRRITATED//INFLAMED SEBORRHEIC KERATOSES 005 09/01/2014 Viral warts, unspecified 03/17/2005 013 Other seborrheic keratosis 03/17/200502/12 ACTINIC DAMAGE///CHR SOLAR SKIN DAMAGE NOS 03/1702/12/2013 documented as of this encounter (statuses as of 11/01/2022) [facility] History of Past illness Narrative* Problem Noted Date Resolved Date Radiculopathy of lumbar region 11/04/2018 0 06/14/2022 Facet arthritis, degenerative, lumbar spine 08/201806/14/2022 Sciatica of left side 06/27/2018 06/14/2022 Cellulitis of left lower limb 01/31/2017 Pure hypercholesterolemia, unspecified 7 06/14/2022 Neurofibroma of trunk 02/12/2013 09/01/2014 Actinic skin damage 08/23/2012 09/01/2014 Eosinophilic colitis 06/10/2012 05/11/2021 Liver nodule 03/04/2012 06/14/2022 Adrenal adenoma 03/04/2012 06/14/2022 Dyspnea 05/23/2011 06/14/2022 Palpitations 05/23/2011 02/11/2018 Diverticulosis of colon (without mention of hemo rrhage) 10/25/2010 06/14/2022 Melanocytic Nevus of trunk: mid lower back: irritated--?atypical---IDN type 10/05/2010 09/01/2014 Atypical(?) nevus of mid lower back 10/05/2010 09/01/2014 Irritable bowel syndrome 08/30/2010 023 Osteoarthritis of knee 08/30/2010 3 Ganglion of tendon 08/30/2010 09/01/2014 Benign neoplasm of eyelid, including canthus 10/200802/12/2013 Other seborrheic dermatitis 08/10/200801/2013 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 08/10/2008 09/01/2014 Dysmetabolic syndrome X 09/18/2006 06/14/19 23 Disorders of bursae and tend ons in shoulder region, unspecified 09/18/2006 09/01/2014 SOLAR LENTIGINES 02/12/2006 02/12/2013 ESPARZA ANGIOMA 02/12/2006 02/12/2013 IRRITATED//INFLAMED SEBORRHEIC KERATOSES 005 09/01/2014 Viral warts, unspecified 03/17/2005 013 Other seborrheic keratosis 03/17/200502/12 ACTINIC DAMAGE///CHR SOLAR SKIN DAMAGE NOS 03/1702/12/2013 documented as of this encounter (statuses as of 11/01/2022) [facility]2019 History of Past illness Narrative* Problem Noted Date Resolved Date Radiculopathy of lumbar region 11/04/2018 0 06/14/2022 Facet arthritis, degenerative, lumbar spine 08/201806/14/2022 Sciatica of left side 06/27/2018 06/14/2022 Cellulitis of left lower limb 01/31/2017 Pure hypercholesterolemia, unspecified 7 06/14/2022 Neurofibroma of trunk 02/12/2013 09/01/2014 Actinic skin damage 08/23/2012 09/01/2014 Eosinophilic colitis 06/10/2012 05/11/2021 Liver nodule 03/04/2012 06/14/2022 Adrenal adenoma 03/04/2012 06/14/2022 Dyspnea 05/23/2011 06/14/2022 Palpitations 05/23/2011 02/11/2018 Diverticulosis of colon (without mention of hemo rrhage) 10/25/2010 06/14/2022 Melanocytic Nevus of trunk: mid lower back: irritated--?atypical---IDN type 10/05/2010 09/01/2014 Atypical(?) nevus of mid lower back 10/05/2010 09/01/2014 Irritable bowel syndrome 08/30/2010 023 Osteoarthritis of knee 08/30/2010 3 Ganglion of tendon 08/30/2010 09/01/2014 Benign neoplasm of eyelid, including canthus 10/200802/12/2013 Other seborrheic dermatitis 08/10/2008 1001/2013 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 08/10/2008 09/01/2014 Dysmetabolic syndrome X 09/18/2006 06/14/19 23 Disorders of bursae and tend ons in shoulder region, unspecified 09/18/2006 09/01/2014 SOLAR LENTIGINES 02/12/2006 02/12/2013 ESPARZA ANGIOMA 02/12/2006 02/12/2013 IRRITATED//INFLAMED SEBORRHEIC KERATOSES 005 09/01/2014 Viral warts, unspecified 03/17/2005 013 Other seborrheic keratosis 03/17/200502/12 ACTINIC DAMAGE///CHR SOLAR SKIN DAMAGE NOS 03/1702/12/2013 documented as of this encounter (statuses as of 11/07/2022) [facility] History of Past illness Narrative* Problem Noted Date Diagnosed Date Resolved Date Radiculopathy of lumbar region 11/04/2018 06/14/2022 Facet arthritis, degenerative, lumbar spine 10/08/2018 06/14/2022 Sciatica of left side 06/27/20182022 Cellulitis of left lower limb 01/31/2017 02/11/2018 Pure hypercholesterolemia, unspecified 01/31/2017 06/14/2022 Neurofibroma of trunk 02/12/20132014 Actinic skin damage 08/23/2012 09/02/19 15 Eosinophilic colitis 06/10/2012 022 Liver nodule 03/04/2012 06/14/2022 Adrenal adenoma 03/04/2012 06/14/2022 Dyspnea 05/23/2011 06/14/2022 Palpitations 05/23/2011 02/11/2018 Diverticulosis of colon (wit hout mention of hemorrhage) 10/25/2010 06/14/2022 Melanocytic Nevus of trunk: mid lower back: irritated--?atypical---IDN type 10/05/2010 09/02/19 15 Atypical(?) nevus of mid lower back 10/05/2010 09/01/2014 Irritable bowel syndrome 08/30/201012/2022 Osteoarthritis of knee 08/30/201006/14 Ganglion of tendon 08/30/2010 5 Benign neoplasm of eyelid, including canthus 9 02/12/2013 Other seborrheic dermatitis 08/10/2008 02/12/2013 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 08/10/2008 09/01/2014 Dysmetabolic syndrome X 09/18/200612/2022 Disorders of bursae and tend ons in shoulder region, unspecified 09/18/2006 09/01/2014 SOLAR LENTIGINES 02/12/2006 02/12/2013 ESPARZA ANGIOMA 02/12/2006 02/12/2013 IRRITATED//INFLAMED SEBORRHEIC KERATOSES 03/17/2005 09/01/2014 Viral warts, unspecified 03/17/200501/2013 Other seborrheic keratosis 03/17/2005 1 ACTINIC DAMAGE///CHR SOLAR SKIN DAMAGE NOS 03/17/2005 02/12/2013 documented as of this encounter (statuses as of 11/22/2022) [facility] History of Past illness Narrative* Problem Noted Date Diagnosed Date Resolved Date Radiculopathy of lumbar region 11/04/2018 06/14/2022 Facet arthritis, degenerative, lumbar spine 10/08/2018 06/14/2022 Sciatica of left side 06/27/20182022 Cellulitis of left lower limb 01/31/2017 02/11/2018 Pure hypercholesterolemia, unspecified 01/31/2017 06/14/2022 Neurofibroma of trunk 02/12/20132014 Actinic skin damage 08/23/2012 09/02/19 15 Eosinophilic colitis 06/10/2012 022 Liver nodule 03/04/2012 06/14/2022 Adrenal adenoma 03/04/2012 06/14/2022 Dyspnea 05/23/2011 06/14/2022 Palpitations 05/23/2011 02/11/2018 Diverticulosis of colon (wit hout mention of hemorrhage) 10/25/2010 06/14/2022 Melanocytic Nevus of trunk: mid lower back: irritated--?atypical---IDN type 10/05/2010 09/02/19 15 Atypical(?) nevus of mid lower back 10/05/2010 09/01/2014 Irritable bowel syndrome 08/30/201012/2022 Osteoarthritis of knee 08/30/201006/14 Ganglion of tendon 08/30/2010 5 Benign neoplasm of eyelid, including canthus 9 02/12/2013 Other seborrheic dermatitis 08/10/2008 02/12/2013 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 08/10/2008 09/01/2014 Dysmetabolic syndrome X 09/18/200612/2022 Disorders of bursae and tend ons in shoulder region, unspecified 09/18/2006 09/01/2014 SOLAR LENTIGINES 02/12/2006 02/12/2013 ESPARZA ANGIOMA 02/12/2006 02/12/2013 IRRITATED//INFLAMED SEBORRHEIC KERATOSES 03/17/2005 09/01/2014 Viral warts, unspecified 03/17/200501/2013 Other seborrheic keratosis 03/17/2005 1 ACTINIC DAMAGE///CHR SOLAR SKIN DAMAGE NOS 03/17/2005 02/12/2013 documented as of this encounter (statuses as of 11/30/2022) [facility] History of Past illness Narrative* Problem Noted Date Diagnosed Date Resolved Date Radiculopathy of lumbar region 11/04/2018 06/14/2022 Facet arthritis, degenerative, lumbar spine 10/08/2018 06/14/2022 Sciatica of left side 06/27/20182022 Cellulitis of left lower limb 01/31/2017 02/11/2018 Pure hypercholesterolemia, unspecified 01/31/2017 06/14/2022 Neurofibroma of trunk 02/12/20132014 Actinic skin damage 08/23/2012 09/02/19 15 Eosinophilic colitis 06/10/2012 022 Liver nodule 03/04/2012 06/14/2022 Adrenal adenoma 03/04/2012 06/14/2022 Dyspnea 05/23/2011 06/14/2022 Palpitations 05/23/2011 02/11/2018 Diverticulosis of colon (wit hout mention of hemorrhage) 10/25/2010 06/14/2022 Melanocytic Nevus of trunk: mid lower back: irritated--?atypical---IDN type 10/05/2010 09/02/19 15 Atypical(?) nevus of mid lower back 10/05/2010 09/01/2014 Irritable bowel syndrome 08/30/201012/2022 Osteoarthritis of knee 08/30/201006/14 Ganglion of tendon 08/30/2010 5 Benign neoplasm of eyelid, including canthus 9 02/12/2013 Other seborrheic dermatitis 08/10/2008 02/12/2013 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 08/10/2008 09/01/2014 Dysmetabolic syndrome X 09/18/200612/2022 Disorders of bursae and tend ons in shoulder region, unspecified 09/18/2006 09/01/2014 SOLAR LENTIGINES 02/12/2006 02/12/2013 ESPARZA ANGIOMA 02/12/2006 02/12/2013 IRRITATED//INFLAMED SEBORRHEIC KERATOSES 03/17/2005 09/01/2014 Viral warts, unspecified 03/17/200501/2013 Other seborrheic keratosis 03/17/2005 1 ACTINIC DAMAGE///CHR SOLAR SKIN DAMAGE NOS 03/17/2005 02/12/2013 documented as of this encounter (statuses as of 12/25/2022) [facility] History of Past illness Narrative* Problem Noted Date Diagnosed Date Resolved Date Radiculopathy of lumbar region 11/04/2018 06/14/2022 Facet arthritis, degenerative, lumbar spine 10/08/2018 06/14/2022 Sciatica of left side 06/27/20182022 Cellulitis of left lower limb 01/31/2017 02/11/2018 Pure hypercholesterolemia, unspecified 01/31/2017 06/14/2022 Neurofibroma of trunk 02/12/20132014 Actinic skin damage 08/23/2012 09/02/19 15 Eosinophilic colitis 06/10/2012 022 Liver nodule 03/04/2012 06/14/2022 Adrenal adenoma 03/04/2012 06/14/2022 Dyspnea 05/23/2011 06/14/2022 Palpitations 05/23/2011 02/11/2018 Diverticulosis of colon (wit hout mention of hemorrhage) 10/25/2010 06/14/2022 Melanocytic Nevus of trunk: mid lower back: irritated--?atypical---IDN type 10/05/2010 09/02/19 15 Atypical(?) nevus of mid lower back 10/05/2010 09/01/2014 Irritable bowel syndrome 08/30/201012/2022 Osteoarthritis of knee 08/30/201006/14 Ganglion of tendon 08/30/2010 5 Benign neoplasm of eyelid, including canthus 9 02/12/2013 Other seborrheic dermatitis 08/10/2008 02/12/2013 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 08/10/2008 09/01/2014 Dysmetabolic syndrome X 09/18/200612/2022 Disorders of bursae and tend ons in shoulder region, unspecified 09/18/2006 09/01/2014 SOLAR LENTIGINES 02/12/2006 02/12/2013 ESPARZA ANGIOMA 02/12/2006 02/12/2013 IRRITATED//INFLAMED SEBORRHEIC KERATOSES 03/17/2005 09/01/2014 Viral warts, unspecified 03/17/200501/2013 Other seborrheic keratosis 03/17/2005 1 ACTINIC DAMAGE///CHR SOLAR SKIN DAMAGE NOS 03/17/2005 02/12/2013 documented as of this encounter (statuses as of 12/27/2022) [facility] History of Past illness Narrative* Problem Noted Date Diagnosed Date Resolved Date Radiculopathy of lumbar region 11/04/2018 06/14/2022 Facet arthritis, degenerative, lumbar spine 10/08/2018 06/14/2022 Sciatica of left side 06/27/20182022 Cellulitis of left lower limb 01/31/2017 02/11/2018 Pure hypercholesterolemia, unspecified 01/31/2017 06/14/2022 Neurofibroma of trunk 02/12/20132014 Actinic skin damage 08/23/2012 09/02/19 15 Eosinophilic colitis 06/10/2012 022 Liver nodule 03/04/2012 06/14/2022 Adrenal adenoma 03/04/2012 06/14/2022 Dyspnea 05/23/2011 06/14/2022 Palpitations 05/23/2011 02/11/2018 Diverticulosis of colon (wit hout mention of hemorrhage) 10/25/2010 06/14/2022 Melanocytic Nevus of trunk: mid lower back: irritated--?atypical---IDN type 10/05/2010 09/02/19 15 Atypical(?) nevus of mid lower back 10/05/2010 09/01/2014 Irritable bowel syndrome 08/30/201012/2022 Osteoarthritis of knee 08/30/201006/14 Ganglion of tendon 08/30/2010 5 Benign neoplasm of eyelid, including canthus 9 02/12/2013 Other seborrheic dermatitis 08/10/2008 02/12/2013 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 08/10/2008 09/01/2014 Dysmetabolic syndrome X 09/18/200612/2022 Disorders of bursae and tend ons in shoulder region, unspecified 09/18/2006 09/01/2014 SOLAR LENTIGINES 02/12/2006 02/12/2013 ESPARZA ANGIOMA 02/12/2006 02/12/2013 IRRITATED//INFLAMED SEBORRHEIC KERATOSES 03/17/2005 09/01/2014 Viral warts, unspecified 03/17/200501/2013 Other seborrheic keratosis 03/17/2005 1 ACTINIC DAMAGE///CHR SOLAR SKIN DAMAGE NOS 03/17/2005 02/12/2013 documented as of this encounter (statuses as of 02/27/2023) [facility] History of Past illness Narrative* Problem Noted Date Diagnosed Date Resolved Date Radiculopathy of lumbar region 11/04/2018 06/14/2022 Facet arthritis, degenerative, lumbar spine 10/08/2018 06/14/2022 Sciatica of left side 06/27/20182022 Cellulitis of left lower limb 01/31/2017 02/11/2018 Pure hypercholesterolemia, unspecified 01/31/2017 06/14/2022 Neurofibroma of trunk 02/12/20132014 Actinic skin damage 08/23/2012 09/02/19 15 Eosinophilic colitis 06/10/2012 022 Liver nodule 03/04/2012 06/14/2022 Adrenal adenoma 03/04/2012 06/14/2022 Dyspnea 05/23/2011 06/14/2022 Palpitations 05/23/2011 02/11/2018 Diverticulosis of colon (wit hout mention of hemorrhage) 10/25/2010 06/14/2022 Melanocytic Nevus of trunk: mid lower back: irritated--?atypical---IDN type 10/05/2010 09/02/19 15 Atypical(?) nevus of mid lower back 10/05/2010 09/01/2014 Irritable bowel syndrome 08/30/201012/2022 Osteoarthritis of knee 08/30/201006/14 Ganglion of tendon 08/30/2010 5 Benign neoplasm of eyelid, including canthus 9 02/12/2013 Other seborrheic dermatitis 08/10/2008 02/12/2013 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 08/10/2008 09/01/2014 Dysmetabolic syndrome X 09/18/200612/2022 Disorders of bursae and tend ons in shoulder region, unspecified 09/18/2006 09/01/2014 SOLAR LENTIGINES 02/12/2006 02/12/2013 ESPARZA ANGIOMA 02/12/2006 02/12/2013 IRRITATED//INFLAMED SEBORRHEIC KERATOSES 03/17/2005 09/01/2014 Viral warts, unspecified 03/17/200501/2013 Other seborrheic keratosis 03/17/2005 1 ACTINIC DAMAGE///CHR SOLAR SKIN DAMAGE NOS 03/17/2005 02/12/2013 documented as of this encounter (statuses as of 03/06/2023) [facility] History of Past illness Narrative* Problem Noted Date Diagnosed Date Resolved Date Radiculopathy of lumbar region 11/04/2018 06/14/2022 Facet arthritis, degenerative, lumbar spine 10/08/2018 06/14/2022 Sciatica of left side 06/27/20182022 Cellulitis of left lower limb 01/31/2017 02/11/2018 Pure hypercholesterolemia, unspecified 01/31/2017 06/14/2022 Neurofibroma of trunk 02/12/20132014 Actinic skin damage 08/23/2012 09/02/19 15 Eosinophilic colitis 06/10/2012 022 Liver nodule 03/04/2012 06/14/2022 Adrenal adenoma 03/04/2012 06/14/2022 Dyspnea 05/23/2011 06/14/2022 Palpitations 05/23/2011 02/11/2018 Diverticulosis of colon (wit hout mention of hemorrhage) 10/25/2010 06/14/2022 Melanocytic Nevus of trunk: mid lower back: irritated--?atypical---IDN type 10/05/2010 09/02/19 15 Atypical(?) nevus of mid lower back 10/05/2010 09/01/2014 Irritable bowel syndrome 08/30/201012/2022 Osteoarthritis of knee 08/30/201006/14 Ganglion of tendon 08/30/2010 5 Benign neoplasm of eyelid, including canthus 9 02/12/2013 Other seborrheic dermatitis 08/10/2008 02/12/2013 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 08/10/2008 09/01/2014 Dysmetabolic syndrome X 09/18/200612/2022 Disorders of bursae and tend ons in shoulder region, unspecified 09/18/2006 09/01/2014 SOLAR LENTIGINES 02/12/2006 02/12/2013 ESPARZA ANGIOMA 02/12/2006 02/12/2013 IRRITATED//INFLAMED SEBORRHEIC KERATOSES 03/17/2005 09/01/2014 Viral warts, unspecified 03/17/200501/2013 Other seborrheic keratosis 03/17/2005 1 ACTINIC DAMAGE///CHR SOLAR SKIN DAMAGE NOS 03/17/2005 02/12/2013 documented as of this encounter (statuses as of 03/10/2023) [facility] History of Past illness Narrative* Problem Noted Date Diagnosed Date Resolved Date Radiculopathy of lumbar region 11/04/2018 06/14/2022 Facet arthritis, degenerative, lumbar spine 10/08/2018 06/14/2022 Sciatica of left side 06/27/20182022 Cellulitis of left lower limb 01/31/2017 02/11/2018 Pure hypercholesterolemia, unspecified 01/31/2017 06/14/2022 Neurofibroma of trunk 02/12/20132014 Actinic skin damage 08/23/2012 09/02/19 15 Eosinophilic colitis 06/10/2012 022 Liver nodule 03/04/2012 06/14/2022 Adrenal adenoma 03/04/2012 06/14/2022 Dyspnea 05/23/2011 06/14/2022 Palpitations 05/23/2011 02/11/2018 Diverticulosis of colon (wit hout mention of hemorrhage) 10/25/2010 06/14/2022 Melanocytic Nevus of trunk: mid lower back: irritated--?atypical---IDN type 10/05/2010 09/02/19 15 Atypical(?) nevus of mid lower back 10/05/2010 09/01/2014 Irritable bowel syndrome 08/30/201012/2022 Osteoarthritis of knee 08/30/201006/14 Ganglion of tendon 08/30/2010 5 Benign neoplasm of eyelid, including canthus 9 02/12/2013 Other seborrheic dermatitis 08/10/2008 02/12/2013 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 08/10/2008 09/01/2014 Dysmetabolic syndrome X 09/18/200612/2022 Disorders of bursae and tend ons in shoulder region, unspecified 09/18/2006 09/01/2014 SOLAR LENTIGINES 02/12/2006 02/12/2013 ESPARZA ANGIOMA 02/12/2006 02/12/2013 IRRITATED//INFLAMED SEBORRHEIC KERATOSES 03/17/2005 09/01/2014 Viral warts, unspecified 03/17/200501/2013 Other seborrheic keratosis 03/17/2005 1 ACTINIC DAMAGE///CHR SOLAR SKIN DAMAGE NOS 03/17/2005 02/12/2013 documented as of this encounter (statuses as of 03/13/2023) [facility] History of Past illness Narrative* Problem Noted Date Diagnosed Date Resolved Date Radiculopathy of lumbar region 11/04/2018 06/14/2022 Facet arthritis, degenerative, lumbar spine 10/08/2018 06/14/2022 Sciatica of left side 06/27/20182022 Cellulitis of left lower limb 01/31/2017 02/11/2018 Pure hypercholesterolemia, unspecified 01/31/2017 06/14/2022 Neurofibroma of trunk 02/12/20132014 Actinic skin damage 08/23/2012 09/02/19 15 Eosinophilic colitis 06/10/2012 022 Liver nodule 03/04/2012 06/14/2022 Adrenal adenoma 03/04/2012 06/14/2022 Dyspnea 05/23/2011 06/14/2022 Palpitations 05/23/2011 02/11/2018 Diverticulosis of colon (wit hout mention of hemorrhage) 10/25/2010 06/14/2022 Melanocytic Nevus of trunk: mid lower back: irritated--?atypical---IDN type 10/05/2010 09/02/19 15 Atypical(?) nevus of mid lower back 10/05/2010 09/01/2014 Irritable bowel syndrome 08/30/201012/2022 Osteoarthritis of knee 08/30/201006/14 Ganglion of tendon 08/30/2010 5 Benign neoplasm of eyelid, including canthus 9 02/12/2013 Other seborrheic dermatitis 08/10/2008 02/12/2013 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 08/10/2008 09/01/2014 Dysmetabolic syndrome X 09/18/200612/2022 Disorders of bursae and tend ons in shoulder region, unspecified 09/18/2006 09/01/2014 SOLAR LENTIGINES 02/12/2006 02/12/2013 ESPARZA ANGIOMA 02/12/2006 02/12/2013 IRRITATED//INFLAMED SEBORRHEIC KERATOSES 03/17/2005 09/01/2014 Viral warts, unspecified 03/17/200501/2013 Other seborrheic keratosis 03/17/2005 1 ACTINIC DAMAGE///CHR SOLAR SKIN DAMAGE NOS 03/17/2005 02/12/2013 documented as of this encounter (statuses as of 03/14/2023) [facility] History of Past illness Narrative* Problem Noted Date Diagnosed Date Resolved Date Radiculopathy of lumbar region 11/04/2018 06/14/2022 Facet arthritis, degenerative, lumbar spine 10/08/2018 06/14/2022 Sciatica of left side 06/27/20182022 Cellulitis of left lower limb 01/31/2017 02/11/2018 Pure hypercholesterolemia, unspecified 01/31/2017 06/14/2022 Neurofibroma of trunk 02/12/20132014 Actinic skin damage 08/23/2012 09/02/19 15 Eosinophilic colitis 06/10/2012 022 Liver nodule 03/04/2012 06/14/2022 Adrenal adenoma 03/04/2012 06/14/2022 Dyspnea 05/23/2011 06/14/2022 Palpitations 05/23/2011 02/11/2018 Diverticulosis of colon (wit hout mention of hemorrhage) 10/25/2010 06/14/2022 Melanocytic Nevus of trunk: mid lower back: irritated--?atypical---IDN type 10/05/2010 09/02/19 15 Atypical(?) nevus of mid lower back 10/05/2010 09/01/2014 Irritable bowel syndrome 08/30/201012/2022 Osteoarthritis of knee 08/30/201006/14 Ganglion of tendon 08/30/2010 5 Benign neoplasm of eyelid, including canthus 9 02/12/2013 Other seborrheic dermatitis 08/10/2008 02/12/2013 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 08/10/2008 09/01/2014 Dysmetabolic syndrome X 09/18/200612/2022 Disorders of bursae and tend ons in shoulder region, unspecified 09/18/2006 09/01/2014 SOLAR LENTIGINES 02/12/2006 02/12/2013 ESPARZA ANGIOMA 02/12/2006 02/12/2013 IRRITATED//INFLAMED SEBORRHEIC KERATOSES 03/17/2005 09/01/2014 Viral warts, unspecified 03/17/200501/2013 Other seborrheic keratosis 03/17/2005 1 ACTINIC DAMAGE///CHR SOLAR SKIN DAMAGE NOS 03/17/2005 02/12/2013 documented as of this encounter (statuses as of 03/20/2023) [facility] History of Past illness Narrative* Problem Noted Date Diagnosed Date Resolved Date Radiculopathy of lumbar region 11/04/2018 06/14/2022 Facet arthritis, degenerative, lumbar spine 10/08/2018 06/14/2022 Sciatica of left side 06/27/20182022 Cellulitis of left lower limb 01/31/2017 02/11/2018 Pure hypercholesterolemia, unspecified 01/31/2017 06/14/2022 Neurofibroma of trunk 02/12/20132014 Actinic skin damage 08/23/2012 09/02/19 15 Eosinophilic colitis 06/10/2012 022 Liver nodule 03/04/2012 06/14/2022 Adrenal adenoma 03/04/2012 06/14/2022 Dyspnea 05/23/2011 06/14/2022 Palpitations 05/23/2011 02/11/2018 Diverticulosis of colon (wit hout mention of hemorrhage) 10/25/2010 06/14/2022 Melanocytic Nevus of trunk: mid lower back: irritated--?atypical---IDN type 10/05/2010 09/02/19 15 Atypical(?) nevus of mid lower back 10/05/2010 09/01/2014 Irritable bowel syndrome 08/30/201012/2022 Osteoarthritis of knee 08/30/201006/14 Ganglion of tendon 08/30/2010 5 Benign neoplasm of eyelid, including canthus 9 02/12/2013 Other seborrheic dermatitis 08/10/2008 02/12/2013 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 08/10/2008 09/01/2014 Dysmetabolic syndrome X 09/18/200612/2022 Disorders of bursae and tend ons in shoulder region, unspecified 09/18/2006 09/01/2014 SOLAR LENTIGINES 02/12/2006 02/12/2013 ESPARZA ANGIOMA 02/12/2006 02/12/2013 IRRITATED//INFLAMED SEBORRHEIC KERATOSES 03/17/2005 09/01/2014 Viral warts, unspecified 03/17/200501/2013 Other seborrheic keratosis 03/17/2005 1 ACTINIC DAMAGE///CHR SOLAR SKIN DAMAGE NOS 03/17/2005 02/12/2013 documented as of this encounter (statuses as of 03/22/2023) [facility] History of Past illness Narrative* Problem Noted Date Diagnosed Date Resolved Date Radiculopathy of lumbar region 11/04/2018 06/14/2022 Facet arthritis, degenerative, lumbar spine 10/08/2018 06/14/2022 Sciatica of left side 06/27/20182022 Cellulitis of left lower limb 01/31/2017 02/11/2018 Pure hypercholesterolemia, unspecified 01/31/2017 06/14/2022 Neurofibroma of trunk 02/12/20132014 Actinic skin damage 08/23/2012 09/02/19 15 Eosinophilic colitis 06/10/2012 022 Liver nodule 03/04/2012 06/14/2022 Adrenal adenoma 03/04/2012 06/14/2022 Dyspnea 05/23/2011 06/14/2022 Palpitations 05/23/2011 02/11/2018 Diverticulosis of colon (wit hout mention of hemorrhage) 10/25/2010 06/14/2022 Melanocytic Nevus of trunk: mid lower back: irritated--?atypical---IDN type 10/05/2010 09/02/19 15 Atypical(?) nevus of mid lower back 10/05/2010 09/01/2014 Irritable bowel syndrome 08/30/201012/2022 Osteoarthritis of knee 08/30/201006/14 Ganglion of tendon 08/30/2010 5 Benign neoplasm of eyelid, including canthus 9 02/12/2013 Other seborrheic dermatitis 08/10/2008 02/12/2013 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 08/10/2008 09/01/2014 Dysmetabolic syndrome X 09/18/200612/2022 Disorders of bursae and tend ons in shoulder region, unspecified 09/18/2006 09/01/2014 SOLAR LENTIGINES 02/12/2006 02/12/2013 ESPARZA ANGIOMA 02/12/2006 02/12/2013 IRRITATED//INFLAMED SEBORRHEIC KERATOSES 03/17/2005 09/01/2014 Viral warts, unspecified 03/17/200501/2013 Other seborrheic keratosis 03/17/2005 1 ACTINIC DAMAGE///CHR SOLAR SKIN DAMAGE NOS 03/17/2005 02/12/2013 documented as of this encounter (statuses as of 03/22/2023) [facility] History of Past illness Narrative* Problem Noted Date Diagnosed Date Resolved Date Radiculopathy of lumbar region 11/04/2018 06/14/2022 Facet arthritis, degenerative, lumbar spine 10/08/2018 06/14/2022 Sciatica of left side 06/27/20182022 Cellulitis of left lower limb 01/31/2017 02/11/2018 Pure hypercholesterolemia, unspecified 01/31/2017 06/14/2022 Neurofibroma of trunk 02/12/20132014 Actinic skin damage 08/23/2012 09/02/19 15 Eosinophilic colitis 06/10/2012 022 Liver nodule 03/04/2012 06/14/2022 Adrenal adenoma 03/04/2012 06/14/2022 Dyspnea 05/23/2011 06/14/2022 Palpitations 05/23/2011 02/11/2018 Diverticulosis of colon (wit hout mention of hemorrhage) 10/25/2010 06/14/2022 Melanocytic Nevus of trunk: mid lower back: irritated--?atypical---IDN type 10/05/2010 09/02/19 15 Atypical(?) nevus of mid lower back 10/05/2010 09/01/2014 Irritable bowel syndrome 08/30/201012/2022 Osteoarthritis of knee 08/30/201006/14 Ganglion of tendon 08/30/2010 5 Benign neoplasm of eyelid, including canthus 9 02/12/2013 Other seborrheic dermatitis 08/10/2008 02/12/2013 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 08/10/2008 09/01/2014 Dysmetabolic syndrome X 09/18/200612/2022 Disorders of bursae and tend ons in shoulder region, unspecified 09/18/2006 09/01/2014 SOLAR LENTIGINES 02/12/2006 02/12/2013 ESPARZA ANGIOMA 02/12/2006 02/12/2013 IRRITATED//INFLAMED SEBORRHEIC KERATOSES 03/17/2005 09/01/2014 Viral warts, unspecified 03/17/200501/2013 Other seborrheic keratosis 03/17/2005 1 ACTINIC DAMAGE///CHR SOLAR SKIN DAMAGE NOS 03/17/2005 02/12/2013 documented as of this encounter (statuses as of 03/23/2023) [facility] History of Past illness Narrative* Problem Noted Date Diagnosed Date Resolved Date Radiculopathy of lumbar region 11/04/2018 06/14/2022 Facet arthritis, degenerative, lumbar spine 10/08/2018 06/14/2022 Sciatica of left side 06/27/20182022 Cellulitis of left lower limb 01/31/2017 02/11/2018 Pure hypercholesterolemia, unspecified 01/31/2017 06/14/2022 Neurofibroma of trunk 02/12/20132014 Actinic skin damage 08/23/2012 09/02/19 15 Eosinophilic colitis 06/10/2012 022 Liver nodule 03/04/2012 06/14/2022 Adrenal adenoma 03/04/2012 06/14/2022 Dyspnea 05/23/2011 06/14/2022 Palpitations 05/23/2011 02/11/2018 Diverticulosis of colon (wit hout mention of hemorrhage) 10/25/2010 06/14/2022 Melanocytic Nevus of trunk: mid lower back: irritated--?atypical---IDN type 10/05/2010 09/02/19 15 Atypical(?) nevus of mid lower back 10/05/2010 09/01/2014 Irritable bowel syndrome 08/30/201012/2022 Osteoarthritis of knee 08/30/201006/14 Ganglion of tendon 08/30/2010 5 Benign neoplasm of eyelid, including canthus 9 02/12/2013 Other seborrheic dermatitis 08/10/2008 02/12/2013 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 08/10/2008 09/01/2014 Dysmetabolic syndrome X 09/18/200612/2022 Disorders of bursae and tend ons in shoulder region, unspecified 09/18/2006 09/01/2014 SOLAR LENTIGINES 02/12/2006 02/12/2013 ESPARZA ANGIOMA 02/12/2006 02/12/2013 IRRITATED//INFLAMED SEBORRHEIC KERATOSES 03/17/2005 09/01/2014 Viral warts, unspecified 03/17/200501/2013 Other seborrheic keratosis 03/17/2005 1 ACTINIC DAMAGE///CHR SOLAR SKIN DAMAGE NOS 03/17/2005 02/12/2013 documented as of this encounter (statuses as of 03/27/2023) [facility] History of Past illness Narrative* Problem Noted Date Diagnosed Date Resolved Date Radiculopathy of lumbar region 11/04/2018 06/14/2022 Facet arthritis, degenerative, lumbar spine 10/08/2018 06/14/2022 Sciatica of left side 06/27/20182022 Cellulitis of left lower limb 01/31/2017 02/11/2018 Pure hypercholesterolemia, unspecified 01/31/2017 06/14/2022 Neurofibroma of trunk 02/12/20132014 Actinic skin damage 08/23/2012 09/02/19 15 Eosinophilic colitis 06/10/2012 022 Liver nodule 03/04/2012 06/14/2022 Adrenal adenoma 03/04/2012 06/14/2022 Dyspnea 05/23/2011 06/14/2022 Palpitations 05/23/2011 02/11/2018 Diverticulosis of colon (wit hout mention of hemorrhage) 10/25/2010 06/14/2022 Melanocytic Nevus of trunk: mid lower back: irritated--?atypical---IDN type 10/05/2010 09/02/19 15 Atypical(?) nevus of mid lower back 10/05/2010 09/01/2014 Irritable bowel syndrome 08/30/201012/2022 Osteoarthritis of knee 08/30/201006/14 Ganglion of tendon 08/30/2010 5 Benign neoplasm of eyelid, including canthus 9 02/12/2013 Other seborrheic dermatitis 08/10/2008 02/12/2013 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 08/10/2008 09/01/2014 Dysmetabolic syndrome X 09/18/200612/2022 Disorders of bursae and tend ons in shoulder region, unspecified 09/18/2006 09/01/2014 SOLAR LENTIGINES 02/12/2006 02/12/2013 ESPRAZA ANGIOMA 02/12/2006 02/12/2013 IRRITATED//INFLAMED SEBORRHEIC KERATOSES 03/17/2005 09/01/2014 Viral warts, unspecified 03/17/200501/2013 Other seborrheic keratosis 03/17/2005 1 ACTINIC DAMAGE///CHR SOLAR SKIN DAMAGE NOS 03/17/2005 02/12/2013 documented as of this encounter (statuses as of 04/11/2023) [facility] History of Past illness Narrative* Problem Noted Date Diagnosed Date Resolved Date Radiculopathy of lumbar region 11/04/2018 06/14/2022 Facet arthritis, degenerative, lumbar spine 10/08/2018 06/14/2022 Sciatica of left side 06/27/20182022 Cellulitis of left lower limb 01/31/2017 02/11/2018 Pure hypercholesterolemia, unspecified 01/31/2017 06/14/2022 Neurofibroma of trunk 02/12/20132014 Actinic skin damage 08/23/2012 09/02/19 15 Eosinophilic colitis 06/10/2012 022 Liver nodule 03/04/2012 06/14/2022 Adrenal adenoma 03/04/2012 06/14/2022 Dyspnea 05/23/2011 06/14/2022 Palpitations 05/23/2011 02/11/2018 Diverticulosis of colon (wit hout mention of hemorrhage) 10/25/2010 06/14/2022 Melanocytic Nevus of trunk: mid lower back: irritated--?atypical---IDN type 10/05/2010 09/02/19 15 Atypical(?) nevus of mid lower back 10/05/2010 09/01/2014 Irritable bowel syndrome 08/30/201012/2022 Osteoarthritis of knee 08/30/201006/14 Ganglion of tendon 08/30/2010 5 Benign neoplasm of eyelid, including canthus 9 02/12/2013 Other seborrheic dermatitis 08/10/2008 02/12/2013 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 08/10/2008 09/01/2014 Dysmetabolic syndrome X 09/18/200612/2022 Disorders of bursae and tend ons in shoulder region, unspecified 09/18/2006 09/01/2014 SOLAR LENTIGINES 02/12/2006 02/12/2013 ESPARZA ANGIOMA 02/12/2006 02/12/2013 IRRITATED//INFLAMED SEBORRHEIC KERATOSES 03/17/2005 09/01/2014 Viral warts, unspecified 03/17/200501/2013 Other seborrheic keratosis 03/17/2005 1 ACTINIC DAMAGE///CHR SOLAR SKIN DAMAGE NOS 03/17/2005 02/12/2013 documented as of this encounter (statuses as of 04/13/2023) [facility] History of Past illness Narrative* Problem Noted Date Resolved Date Stasis dermatitis of both legs 08/01/2017 0 05/11/2021 Cellulitis of left lower limb 01/31/2017 Neurofibroma of trunk 02/12/2013 09/01/2014 Actinic skin damage 08/23/2012 09/01/2014 Eosinophilic colitis 06/10/2012 05/11/2021 Palpitations 05/23/2011 02/11/2018 Melanocytic Nevus of trunk: mid lower back: irritated--?atypical---IDN type 10/05/2010 09/01/2014 Atypical(?) nevus of mid lower back 10/05/2010 09/01/2014 Ganglion of tendon 08/30/2010 09/01/2014 Benign neoplasm of eyelid, including canthus 10/200802/12/2013 Other seborrheic dermatitis 08/10/200801/2013 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 08/10/2008 09/01/2014 Disorders of bursae and tend ons in shoulder region, unspecified 09/18/2006 09/01/2014 SOLAR LENTIGINES 02/12/2006 02/12/2013 ESPARZA ANGIOMA 02/12/2006 02/12/2013 IRRITATED//INFLAMED SEBORRHEIC KERATOSES 005 09/01/2014 Viral warts, unspecified 03/17/2005 013 Other seborrheic keratosis 03/17/200502/12 ACTINIC DAMAGE///CHR SOLAR SKIN DAMAGE NOS 03/1702/12/2013 documented as of this encounter (statuses as of 07/25/2021) [facility] History of Past illness Narrative* Problem Noted Date Resolved Date Stasis dermatitis of both legs 08/01/2017 0 05/11/2021 Cellulitis of left lower limb 01/31/2017 Neurofibroma of trunk 02/12/2013 09/01/2014 Actinic skin damage 08/23/2012 09/01/2014 Eosinophilic colitis 06/10/2012 05/11/2021 Palpitations 05/23/2011 02/11/2018 Melanocytic Nevus of trunk: mid lower back: irritated--?atypical---IDN type 10/05/2010 09/01/2014 Atypical(?) nevus of mid lower back 10/05/2010 09/01/2014 Ganglion of tendon 08/30/2010 09/01/2014 Benign neoplasm of eyelid, including canthus 10/200802/12/2013 Other seborrheic dermatitis 08/10/200801/2013 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 08/10/2008 09/01/2014 Disorders of bursae and tend ons in shoulder region, unspecified 09/18/2006 09/01/2014 SOLAR LENTIGINES 02/12/2006 02/12/2013 ESPARZA ANGIOMA 02/12/2006 02/12/2013 IRRITATED//INFLAMED SEBORRHEIC KERATOSES 005 09/01/2014 Viral warts, unspecified 03/17/2005 013 Other seborrheic keratosis 03/17/200502/12 ACTINIC DAMAGE///CHR SOLAR SKIN DAMAGE NOS 03/1702/12/2013 documented as of this encounter (statuses as of 08/12/2021) [facility] History of Past illness Narrative* Problem Noted Date Resolved Date Stasis dermatitis of both legs 08/01/2017 0 05/11/2021 Cellulitis of left lower limb 01/31/2017 Neurofibroma of trunk 02/12/2013 09/01/2014 Actinic skin damage 08/23/2012 09/01/2014 Eosinophilic colitis 06/10/2012 05/11/2021 Palpitations 05/23/2011 02/11/2018 Melanocytic Nevus of trunk: mid lower back: irritated--?atypical---IDN type 10/05/2010 09/01/2014 Atypical(?) nevus of mid lower back 10/05/2010 09/01/2014 Ganglion of tendon 08/30/2010 09/01/2014 Benign neoplasm of eyelid, including canthus 10/200802/12/2013 Other seborrheic dermatitis 08/10/200801/2013 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 08/10/2008 09/01/2014 Disorders of bursae and tend ons in shoulder region, unspecified 09/18/2006 09/01/2014 SOLAR LENTIGINES 02/12/2006 02/12/2013 ESPARZA ANGIOMA 02/12/2006 02/12/2013 IRRITATED//INFLAMED SEBORRHEIC KERATOSES 005 09/01/2014 Viral warts, unspecified 03/17/2005 013 Other seborrheic keratosis 03/17/200502/12 ACTINIC DAMAGE///CHR SOLAR SKIN DAMAGE NOS 03/1702/12/2013 documented as of this encounter (statuses as of 08/18/2021) [facility] History of Past illness Narrative* Problem Noted Date Resolved Date Stasis dermatitis of both legs 08/01/2017 0 05/11/2021 Cellulitis of left lower limb 01/31/2017 Neurofibroma of trunk 02/12/2013 09/01/2014 Actinic skin damage 08/23/2012 09/01/2014 Eosinophilic colitis 06/10/2012 05/11/2021 Palpitations 05/23/2011 02/11/2018 Melanocytic Nevus of trunk: mid lower back: irritated--?atypical---IDN type 10/05/2010 09/01/2014 Atypical(?) nevus of mid lower back 10/05/2010 09/01/2014 Ganglion of tendon 08/30/2010 09/01/2014 Benign neoplasm of eyelid, including canthus 10/200802/12/2013 Other seborrheic dermatitis 08/10/200801/2013 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 08/10/2008 09/01/2014 Disorders of bursae and tend ons in shoulder region, unspecified 09/18/2006 09/01/2014 SOLAR LENTIGINES 02/12/2006 02/12/2013 ESPARZA ANGIOMA 02/12/2006 02/12/2013 IRRITATED//INFLAMED SEBORRHEIC KERATOSES 005 09/01/2014 Viral warts, unspecified 03/17/2005 013 Other seborrheic keratosis 03/17/200502/12 ACTINIC DAMAGE///CHR SOLAR SKIN DAMAGE NOS 03/1702/12/2013 documented as of this encounter (statuses as of 08/24/2021) [facility] Medication management Encounter for long-term (current) use of other medications documented in this encounter [facility] noteNo assessment information availableWCommunity [facility] Work Phone: Evaluation note* Diagnosis Dementia with behavioral disturbance- Primary Dementia, unspecified, with behavioral disturbance Major depressive disorder with current active episode, unspecified depression episode severity, unspecified whether recurrent Primary hypertension Unspecified essential hypertension Hypothyroidism, acquired Unspecified hypothyroidism Hyperlipidemia LDL goal <130 Other and unspecified hyperlipidemia Impacted cerumen of both ears Impacted cerumen [facility] this encounter [facility]* Diagnosis Sinusitis, unspecified chronicity, unspecified location- Primary Dementia with behavioral disturbance (HCC) Dementia, unspecified, with behavioral disturbance Major depressive disorder with current active episode, unspecified depression episode severity, unspecified whether recurrent [facility] Diagnosis Dementia with behavioral disturbance (HCC)- Primary Dementia, unspecified, with behavioral disturbance Major depressive disorder with current active episode, unspecified depression episode severity, unspecified whether recurrent Venous (peripheral) insufficiency Unspecified venous (peripheral) insufficiency Primary hypertension Unspecified essential hypertension [facility] this encounter [facility]* Diagnosis Dementia with behavioral disturbance (HCC)- Primary Dementia, unspecified, with behavioral disturbance Major depressive disorder with current active episode, unspecified depression episode severity, unspecified whether recurrent Seborrheic dermatitis of scalp Other seborrheic dermatitis Hypothyroidism, acquired Unspecified hypothyroidism Hyperlipidemia LDL goal <130 Other and unspecified hyperlipidemia [facility] Acute erythematous eruption of skin- Primary Venous insufficiency Unspecified venous (peripheral) insufficiency Bilateral lower extremity edema Edema documented in this encounter [facility]* Diagnosis Acute erythematous eruption of skin- Primary Bilateral lower extremity edema Edema Venous insufficiency Unspecified venous (peripheral) insufficiency Primary hypertension Unspecified essential hypertension DDD (degenerative disc disease), lumbar Degeneration of lumbar or lumbosacral intervertebral disc [facility]* Diagnosis Avulsion of toenail, initial encounter- Primary Injury of right great toe, initial encounter Cellulitis of great toe of right foot Cellulitis and abscess of toe, unspecified [facility]* Diagnosis Major depressive disorder with current active episode, unspecified depression episode severity, unspecified whether recurrent- Primary Dementia with behavioral disturbance (HCC) Dementia, unspecified, with behavioral disturbance [facility]* Diagnosis Traumatic avulsion of nail plate of toe, initial encounter- Primary Onychomycosis Dermatophytosis of nail Venous insufficiency Unspecified venous (peripheral) insufficiency Callus Corns and callosities [facility] this [facility]* Diagnosis Dyspnea, unspecified type- Primary Venous (peripheral) insufficiency Unspecified venous (peripheral) insufficiency Stasis dermatitis of both legs Varicose veins of lower extremities with inflammation Dementia with behavioral disturbance (HCC) Dementia, unspecified, with behavioral disturbance History of panic attacks [facility] this encounter [facility]* Diagnosis Onset Date Resolution Status Declining functional status acute Dehydration acute Multiple falls acute [facility] Work Phone: Evaluation note* Diagnosis Cellulitis of lower extremity, unspecified laterality Bilateral lower extremity edema Edema documented in this encounter [facility] note* Diagnosis Major depressive disorder with current active episode, unspecified depression episode severity, unspecified whether recurrent Dementia with behavioral disturbance (HCC) Dementia, unspecified, with behavioral disturbance documented in this encounter [facility] note* Diagnosis Injury of right great toe, initial encounter documented in this encounter [facility] note* Diagnosis DDD (degenerative disc disease), lumbar Degeneration of lumbar or lumbosacral intervertebral disc Hyperlipidemia LDL goal <130 Other and unspecified hyperlipidemia Venous (peripheral) insufficiency Unspecified venous (peripheral) insufficiency documented in this encounter [facility] note* Diagnosis Dementia with behavioral disturbance (HCC) Dementia, unspecified, with behavioral disturbance documented in this encounter [facility] for referral (narrative)* Diagnostic Procedure Only (Routine) - Closed Specialty Diagnoses / Procedures Referred By Gerda noyola Referred To Contact XR IMAGING Diagnoses Injury of right great toe, initial encounter Procedures XR FOOT GENERAL 3V AP/LAT/OBL RIGHT RADEX FOOT COMPLETE MINIMUM 3 VIEWS Nedra Cheema APRN.[employer] [address] [place] [address] Xr Imaging Referral ID Status Reason Start Date Expiration Date V isits Requested Visits Authorized [id number] Closed Auto-Generate d Referral 10/31/2022 11/30/2023 1 1 * Consult, Test, Treat (Routine) - Pending Review Specialty Diagnoses / Procedures Referred By Gerad noyola Referred To Contact Podiatry Diagnoses Injury of right great toe, initial encounter Cellulitis of great toe of right foot Avulsion of toenail, initial encounter Procedures CONSULT TO PODIATRY OFFICE/OUTPATIENT [facility] 60-74 MINUTES Nedra Cheema APRN.[employer] [address] [place] [address] Referral ID Status Reason Start Date Expiration Date Visits Requested Visits Authorized [id number] Pending Review PCP Requested Referral 10/31/2022 10/31/2023 1 1 [facility] for referral (narrative)* Diagnostic Procedure Only (Routine) - Closed Specialty Diagnoses / Procedures Referred By Contac t Referred To Contact XR IMAGING Diagnoses Injury of right great toe, initial encounter Procedures XR FOOT GENERAL 3V AP/LAT/OBL RIGHT RADEX FOOT COMPLETE MINIMUM 3 VIEWS Nedra Cheema APRN.CNS [address] [place] [address] [place] [address] Referral ID Status Reason Start Date Expiration Date V isits Requested Visits Authorized [id number] Closed Auto-Generate d Referral 10/31/2022 11/30/2023 1 1 [facility] for referral (narrative)No reason for referral information availableWCommunity Memorial Hospital Work Phone: Reason for visit Narrative* Diagnostic Procedure Only (Routine) - Closed Specialty Diagnoses / Procedures Referred By Contac t Referred To Contact XR IMAGING Diagnoses Injury of right great toe, initial encounter Procedures XR FOOT GENERAL 3V AP/LAT/OBL RIGHT RADEX FOOT COMPLETE MINIMUM 3 VIEWS Nedra Cheema APRN.[employer] [address] [place] [address] [place] [address] Referral ID Status Reason Start Date Expiration Date V isits Requested Visits Authorized [id number] Closed Auto-Generate d Referral 10/31/2022 11/30/2023 1 1 [facility] Advance Directives No Advanced Directives Records FoundDocuments on File Type Date Recorded Patient [employer] Expl anation Advance Directive(s) 05/30/2016 10:59 AM Advance Directive Response Recorded Date/ Time Living Will Yes March 26 8:59am Power of Biomedical Manager Yes March 26, 2022 8:59am Name of Medical Power of Biomedical Manager ? March 26, 2022 8:59am Advance Directive Response Recorded Date/ Time Name of Medical Power of Biomedical Manager ? March 26, 2022 8:59am Living Will No April 08 6:52pm Power of Biomedical Manager No April 08, 2022 6:52pm Advance Directive Response Recorded Date/ Time Living Will No April 08 7:52pm Power of Biomedical Manager No April 08, 2022 7:52pm Documents on File Type Date Recorded Patient [employer] Expl anation Advance Directive(s) 08/07/2022 9:32 AM Documents on File Type Date Recorded Patient [employer] Expl anation Advance Directive(s) 08/07/2022 9:32 AM Advance Directive Response Recorded Date/ Time Name of Medical Power of Biomedical Manager SANDY VALDEZ DTR February 23, 2023 10:50pm Living Will No February 23 10:50pm Power of Biomedical Manager Yes February 23, 2023 10:50pm Chief Complaint and Reason for Visit Chief Complaint urinary sx Chief Complaint urinary sx WOUND CHECK Chief Complaint urinary sx WOUND CHECK anxiety [facility]-WAY LAB WORK Chief Complaint WOUND CHECK anxiety HAL[facility]-WAY LAB WORK HALF-WAY LABWORK Chief Complaint anxiety HALF-WAY LAB WORK HALF-WAY LABWORK HALF-WAY LABWORK Chief Complaint HALF-WAY LAB WOR K HALF-WAY LABWORK HALF-WAY LABWORK HALF-WAY LABWORK Chief Complaint HALF-WAY LABWORK HALF-WAY LABWORK HALF-WAY LABWORK HALF-WAY LAB WORK Chief Complaint RECURRENT FALL RECURRENT FALL RECURRENT FALL Reason for Visit Declining functional status Dehydration Multiple falls Chief Complaint Admit Date [facility] WORK August 21, 2024 5 :00am Chief Complaint Admit Date [facility]F-WAY LAB WORK August 21, 2024 5 :00am FALL October 06, 2024 4:47p m Chief Complaint Admit Date HALF-WAY LAB WORK August 21, 2024 5 :00am HALF-WAY LAB WORK September 30, 2024 9:0 0pm FALL October 06, 2024 4:47p m Family History No Family History Records Found Relationship Condition Age at Onset Recorded Date/T asaf father Coronary artery disease Unknown Implantable cardiove rter-defibrillator (ICD) in situ Unknown brother Presence of cardiac pacemaker Unknown brother Coronary artery disease Unknown Myocardial infarction Unknown Reason for Referral Specialty Diagnoses / Procedures Referred By Gerda t Referred To Contact Ent - Otolaryngology Diagnoses Impacted cerumen of both ears Procedures CONSULT TO ENT José Miguel Frias MD [address] [place] [address] Referral ID Status Reason Start Date Expiration Date Visits Requested Visits Authorized [id number] Ref Not Required PCP Requested Referral 06/14/2022 06/14/2023 1 1 Specialty Diagnoses / Procedures Referred By Contac t Referred To Contact Neurology Diagnoses Dementia with behavioral disturbance Procedures CONSULT TO NEUROLOGY OFFICE/OUTPATIENT NEW HIGH MDM 60-74 MINUTES José Miguel Frias MD [address] [place] [address] Referral ID Status Reason Start Date Expiration Date Visits Requested Visits Authorized [id number] Pending Review PCP Requested Referral 06/14/2022 06/14/2023 1 1 Specialty Diagnoses / Procedures Referred By Contac t Referred To Contact Cardiology Diagnoses Dyspnea, unspecified type Procedures CONSULT TO CARDIOLOGY José Miguel Frias MD [address] [place] [address] Referral ID Status Reason Start Date Expiration Date Visits Requested Visits Authorized [id number] Ref Not Required PCP Requested Referral 12/22/2022 12/22/2023 1 1 Specialty Diagnoses / Procedures Referred By Contac t Referred To Contact [facility] Diagnoses Dyspnea, unspecified type Procedures ECG COMPLETE ECG ROUTINE ECG W/LEAST 12 LDS W/I&R José Miguel Frias MD [address] [place] [address] [facility] [place] [address] [place] [address] Referral ID Status Reason Start Date Expiration Date V isits Requested Visits Authorized [id number] Closed Auto-Generate d Referral 12/22/2022 12/22/2023 1 1 Summary Purpose Additional Source Comments Source Comments (unrecognize d section and content) In the event this informatio n is protected by the Federal Confidentiality of Alcohol and Drug Abuse Patient Records regulations: The Federal rules restrict any use of the information to criminally investigate or prosecute any alcohol or drug abuse patient.[facility] the event this information is protected by the Federal Confidentiality of Alcohol and Drug Abuse Patient Records regulations: The Federal rules restrict any use of the information to criminally investigate or prosecute any alcohol or drug abuse patient.[facility] the event this information is protected by the Federal Confidentiality of Alcohol and Drug Abuse Patient Records regulations: The Federal rules restrict any use of the information to criminally investigate or prosecute any alcohol or drug abuse patient.[facility] the event this information is protected by the Federal Confidentiality of Alcohol and Drug Abuse Patient Records regulations: The Federal rules restrict any use of the information to criminally investigate or prosecute any alcohol or drug abuse patient.[facility] the event this information is protected by the Federal Confidentiality of Alcohol and Drug Abuse Patient Records regulations: The Federal rules restrict any use of the information to criminally investigate or prosecute any alcohol or drug abuse patient.[facility] the event this information is protected by the Federal Confidentiality of Alcohol and Drug Abuse Patient Records regulations: The Federal rules restrict any use of the information to criminally investigate or prosecute any alcohol or drug abuse patient.[facility] Hospital[facility] the event this information is protected by the Federal Confidentiality of Alcohol and Drug Abuse Patient Records regulations: The Federal rules restrict any use of the information to criminally investigate or prosecute any alcohol or drug abuse patient.[facility] Hospital[facility] the event this information is protected by the Federal Confidentiality of Alcohol and Drug Abuse Patient Records regulations: The Federal rules restrict any use of the information to criminally investigate or prosecute any alcohol or drug abuse patient.[facility] Hospital[facility] the event this information is protected by the Federal Confidentiality of Alcohol and Drug Abuse Patient Records regulations: The Federal rules restrict any use of the information to criminally investigate or prosecute any alcohol or drug abuse patient.[facility] HospitalIn the event this information is protected by the Federal Confidentiality of Alcohol and Drug Abuse Patient Records regulations: The Federal rules restrict any use of the information to criminally investigate or prosecute any alcohol or drug abuse patient.[facility] HospitalIn the event this information is protected by the Federal Confidentiality of Alcohol and Drug Abuse Patient Records regulations: The Federal rules restrict any use of the information to criminally investigate or prosecute any alcohol or drug abuse patient.[facility] HospitalIn the event this information is protected by the Federal Confidentiality of Alcohol and Drug Abuse Patient Records regulations: The Federal rules restrict any use of the information to criminally investigate or prosecute any alcohol or drug abuse patient.[facility] HospitalIn the event this information is protected by the Federal Confidentiality of Alcohol and Drug Abuse Patient Records regulations: The Federal rules restrict any use of the information to criminally investigate or prosecute any alcohol or drug abuse patient.[facility] HospitalIn the event this information is protected by the Federal Confidentiality of Alcohol and Drug Abuse Patient Records regulations: The Federal rules restrict any use of the information to criminally investigate or prosecute any alcohol or drug abuse patient.[facility] HospitalIn the event this information is protected by the Federal Confidentiality of Alcohol and Drug Abuse Patient Records regulations: The Federal rules restrict any use of the information to criminally investigate or prosecute any alcohol or drug abuse patient.[facility] HospitalIn the event this information is protected by the Federal Confidentiality of Alcohol and Drug Abuse Patient Records regulations: The Federal rules restrict any use of the information to criminally investigate or prosecute any alcohol or drug abuse patient.[facility] HospitalIn the event this information is protected by the Federal Confidentiality of Alcohol and Drug Abuse Patient Records regulations: The Federal rules restrict any use of the information to criminally investigate or prosecute any alcohol or drug abuse patient.[facility] HospitalIn the event this information is protected by the Federal Confidentiality of Alcohol and Drug Abuse Patient Records regulations: The Federal rules restrict any use of the information to criminally investigate or prosecute any alcohol or drug abuse patient.[facility] HospitalIn the event this information is protected by the Federal Confidentiality of Alcohol and Drug Abuse Patient Records regulations: The Federal rules restrict any use of the information to criminally investigate or prosecute any alcohol or drug abuse patient.[facility] HospitalIn the event this information is protected by the Federal Confidentiality of Alcohol and Drug Abuse Patient Records regulations: The Federal rules restrict any use of the information to criminally investigate or prosecute any alcohol or drug abuse patient.[facility] HospitalIn the event this information is protected by the Federal Confidentiality of Alcohol and Drug Abuse Patient Records regulations: The Federal rules restrict any use of the information to criminally investigate or prosecute any alcohol or drug abuse patient.[facility] HospitalIn the event this information is protected by the Federal Confidentiality of Alcohol and Drug Abuse Patient Records regulations: The Federal rules restrict any use of the information to criminally investigate or prosecute any alcohol or drug abuse patient.[facility] HospitalIn the event this information is protected by the Federal Confidentiality of Alcohol and Drug Abuse Patient Records regulations: The Federal rules restrict any use of the information to criminally investigate or prosecute any alcohol or drug abuse patient.[facility] HospitalIn the event this information is protected by the Federal Confidentiality of Alcohol and Drug Abuse Patient Records regulations: The Federal rules restrict any use of the information to criminally investigate or prosecute any alcohol or drug abuse patient.[facility] HospitalIn the event this information is protected by the Federal Confidentiality of Alcohol and Drug Abuse Patient Records regulations: The Federal rules restrict any use of the information to criminally investigate or prosecute any alcohol or drug abuse patient.[facility] HospitalIn the event this information is protected by the Federal Confidentiality of Alcohol and Drug Abuse Patient Records regulations: The Federal rules restrict any use of the information to criminally investigate or prosecute any alcohol or drug abuse patient.[facility] HospitalIn the event this information is protected by the Federal Confidentiality of Alcohol and Drug Abuse Patient Records regulations: The Federal rules restrict any use of the information to criminally investigate or prosecute any alcohol or drug abuse patient.[facility] HospitalIn the event this information is protected by the Federal Confidentiality of Alcohol and Drug Abuse Patient Records regulations: The Federal rules restrict any use of the information to criminally investigate or prosecute any alcohol or drug abuse patient.[facility] HospitalIn the event this information is protected by the Federal Confidentiality of Alcohol and Drug Abuse Patient Records regulations: The Federal rules restrict any use of the information to criminally investigate or prosecute any alcohol or drug abuse patient.[facility] HospitalIn the event this information is protected by the Federal Confidentiality of Alcohol and Drug Abuse Patient Records regulations: The Federal rules restrict any use of the information to criminally investigate or prosecute any alcohol or drug abuse patient.[facility] HospitalIn the event this information is protected by the Federal Confidentiality of Alcohol and Drug Abuse Patient Records regulations: The Federal rules restrict any use of the information to criminally investigate or prosecute any alcohol or drug abuse patient.[facility] HospitalIn the event this information is protected by the Federal Confidentiality of Alcohol and Drug Abuse Patient Records regulations: The Federal rules restrict any use of the information to criminally investigate or prosecute any alcohol or drug abuse patient.[facility] HospitalIn the event this information is protected by the Federal Confidentiality of Alcohol and Drug Abuse Patient Records regulations: The Federal rules restrict any use of the information to criminally investigate or prosecute any alcohol or drug abuse patient.[facility] HospitalIn the event this information is protected by the Federal Confidentiality of Alcohol and Drug Abuse Patient Records regulations: The Federal rules restrict any use of the information to criminally investigate or prosecute any alcohol or drug abuse patient.[facility] HospitalIn the event this information is protected by the Federal Confidentiality of Alcohol and Drug Abuse Patient Records regulations: The Federal rules restrict any use of the information to criminally investigate or prosecute any alcohol or drug abuse patient.[facility] HospitalIn the event this information is protected by the Federal Confidentiality of Alcohol and Drug Abuse Patient Records regulations: The Federal rules restrict any use of the information to criminally investigate or prosecute any alcohol or drug abuse patient.[facility] HospitalIn the event this information is protected by the Federal Confidentiality of Alcohol and Drug Abuse Patient Records regulations: The Federal rules restrict any use of the information to criminally investigate or prosecute any alcohol or drug abuse patient.[facility] HospitalIn the event this information is protected by the Federal Confidentiality of Alcohol and Drug Abuse Patient Records regulations: The Federal rules restrict any use of the information to criminally investigate or prosecute any alcohol or drug abuse patient.[facility] HospitalIn the event this information is protected by the Federal Confidentiality of Alcohol and Drug Abuse Patient Records regulations: The Federal rules restrict any use of the information to criminally investigate or prosecute any alcohol or drug abuse patient.[facility] HospitalIn the event this information is protected by the Federal Confidentiality of Alcohol and Drug Abuse Patient Records regulations: The Federal rules restrict any use of the information to criminally investigate or prosecute any alcohol or drug abuse patient.[facility] HospitalIn the event this information is protected by the Federal Confidentiality of Alcohol and Drug Abuse Patient Records regulations: The Federal rules restrict any use of the information to criminally investigate or prosecute any alcohol or drug abuse patient.[facility] HospitalIn the event this information is protected by the Federal Confidentiality of Alcohol and Drug Abuse Patient Records regulations: The Federal rules restrict any use of the information to criminally investigate or prosecute any alcohol or drug abuse patient.[facility] HospitalIn the event this information is protected by the Federal Confidentiality of Alcohol and Drug Abuse Patient Records regulations: The Federal rules restrict any use of the information to criminally investigate or prosecute any alcohol or drug abuse patient.[facility] HospitalIn the event this information is protected by the Federal Confidentiality of Alcohol and Drug Abuse Patient Records regulations: The Federal rules restrict any use of the information to criminally investigate or prosecute any alcohol or drug abuse patient.[facility] HospitalIn the event this information is protected by the Federal Confidentiality of Alcohol and Drug Abuse Patient Records regulations: The Federal rules restrict any use of the information to criminally investigate or prosecute any alcohol or drug abuse patient.[facility] Reason for Visit (unrecogniz ed section and content) Reason Comments Refill Request Reason Comments Prescription Refills Reason Comments Establish Care From Dr. Morales Rob Reason Comments Established Patient X 2 days chest conge stion and cough Reason Comments behavioral change Reason Onset Date Comments Allied Health Visit 07/07/2022 Medication A dherence Outreach Reason Comments 6 week follow-up Forms/letter Possible move to [facility] in [place] Reason Onset Date Comments Refill Request 07/31/2022 Reason Comments Results Reason Comments Patient Update Conferenced facility [facility] to affiliate line Reason Comments Patient Update Reason Comments Confusion Reason Comments Rash Reason Comments Medication Question Reason Comments blisters nad redneess going up rk lower legs Reason Comments Follow Up 1 WEEK Reason Onset Date Comments Population Health Navigation Outreach 10/05/2022 [place] care gap Reason Comments Toe Pain (Big) red and inflammed Reason Comments New nail care Nail Check Reason Onset Date Comments Refill Request 11/29/2022 Reason Comments Recheck Reason Comments [facility] Plan Reason Comments [facility] PT POC Reason Comments Edema Reason Comments Medication Problem Reason Comments Release Of Medical Records Reason Comments medication allergy Reason Comments report on patient legs Reason Onset Date Comments Refill Request 03/23/2023 Reason Comments [facility] Update Reason Comments Orders Reason Onset Date Comments Refill Request 04/12/2023 Reason Onset Date Comments Population Health Navigation Outreach 08/30/2023 [facility] CURRENT [facility] workbench - [facility], Care gaps, HCC gap closure - [place] [facility] Reason Onset Date Comments [facility], Care gaps, HCC gap closure - [place] [facility] Reason Onset Date Comments Population Health Navigation Outreach 12/14/2023 [facility] - [place] [facility] Reason Comments Patient Outreach Reason Comments request medicaiton not on current [facility] Teams (unrecognized sec tion and content) Team Status: Active Member Role Status Dates Dr. José Miguel Frias MD Primary Care Provider Active Team Status: Inactive Member Role Status Dates Dr. José Miguel Frias MD Primary Care Provider Active Start: August 21, 2024 End: August 21, 2024 Dr. Emmanuel VELASQUEZ MD Attending Provider Active Start: August 21, 2024 End: August 21, 2024 Team Status: Active Member Role Status Dates Dr. José Miguel Frias MD Primary Care Provider Active Start: September 30, 2024 Dr. Emmanuel VELASQUEZ MD Attending Provider Active Start: September 30, 2024 Team Status: Inactive Member Role Status Dates Dr. José Miguel Frias MD Primary Care Provider Active Start: October 06, 2024 End: October 06, 2024 Ed Physician Provider Emergency Provider Active Start: October 06, 2024 End: October 06, 2024 Aquatics Instructor Relationship Specialty Start Date End Date José Miguel Frias MD [address] [place], [place] [id number] PCP - General Internal Medicine 05/25/21 Aquatics Instructor Relationship Specialty Start Date End Date José Miguel Frias MD [address] [place], [place] [id number] PCP - General Internal Medicine 05/25/21 Team Status: Active Member Role Status Dates Dr. Benjamín Merino III, MD Family Provider Active Dr. José Miguel Frias MD Primary Care Provider Active Team Status: Inactive Member Role Status Dates Dr. José Miguel Frias MD Primary Care Provider Active Dr. Jayne Herrera DO Attending Provider, Emergency Pro vider Active Team Status: Inactive Member Role Status Dates Dr. José Miguel Frias MD Primary Care Provider Active Dr. Julius Huffman DO Attending Provider, Emergency Provider Active Team Status: Inactive Member Role Status Dates Dr. José Miguel Frias MD Primary Care Provider Active Lc Lo MD Attending Provider, Emergency Provid er Active Team Status: Inactive Member Role Status Dates Dr. José Miguel Frias MD Primary Care Provider Active Mary Rob MD Attending Provider Active Aquatics Instructor Relationship Specialty Start Date End Date José Miguel Frias MD [address] [place] [address] PCP - General Internal Medicine 06/14/22 Aquatics Instructor Relationship Specialty Start Date End Date José Miguel Frias MD [address] [place] [address] PCP - General Internal Medicine 06/14/22 Aquatics Instructor Relationship Specialty Start Date End Date José Miguel Frias MD [address] [place] [address] PCP - General Internal Medicine 06/14/22 Aquatics Instructor Relationship Specialty Start Date End Date José Miguel Frias MD [address] [place] [address] PCP - General Internal Medicine 06/14/22 Aquatics Instructor Relationship Specialty Start Date End Date José Miguel Frias MD [address] [place] [address] PCP - General Internal Medicine 06/14/22 Team Status: Inactive Member Role Status Dates Dr. José Miguel Frias MD Primary Care Provider Active Mary VELASQUEZ MD Attending Provider Active Team Status: Inactive Member Role Status Dates Dr. José Miguel Frias MD Primary Care Provider Active José Miguel VELASQUEZ MD Attending Provider Active Team Status: Active Member Role Status Dates Dr. José Miguel Frias MD Primary Care Provider Active José Miguel VELASQUEZ MD Attending Provider Active Aquatics Instructor Relationship Specialty Start Date End Date José Miguel Frias MD [address] [place] [address] PCP - General Internal Medicine 06/14/22 Aquatics Instructor Relationship Specialty Start Date End Date José Miguel Frias MD [address] [place] [address] PCP - General Internal Medicine 06/14/22 Aquatics Instructor Relationship Specialty Start Date End Date José Miguel Frias MD [address] [place] [address] PCP - General Internal Medicine 06/14/22 Aquatics Instructor Relationship Specialty Start Date End Date José Miguel Frias MD [address] [place] [address] PCP - General Internal Medicine 06/14/22 Aquatics Instructor Relationship Specialty Start Date End Date José Miguel Frias MD [address] [place] [address] PCP - General Internal Medicine 06/14/22 Aquatics Instructor Relationship Specialty Start Date End Date José Miguel Frias MD [address] [place] [address] PCP - General Internal Medicine 06/14/22 Aquatics Instructor Relationship Specialty Start Date End Date José Miguel Frias MD [address] [place] [address] PCP - General Internal Medicine 06/14/22 Aquatics Instructor Relationship Specialty Start Date End Date José Miguel Frias MD [address] [place] [address] PCP - General Internal Medicine 06/14/22 Aquatics Instructor Relationship Specialty Start Date End Date José Miguel Frias MD [address] [place] [address] PCP - General Internal Medicine 06/14/22 Aquatics Instructor Relationship Specialty Start Date End Date José Miguel Frias MD [address] [place] [address] PCP - General Internal Medicine 06/14/22 Aquatics Instructor Relationship Specialty Start Date End Date José Miguel Frias MD [address] [place] [address] PCP - General Internal Medicine 06/14/22 Aquatics Instructor Relationship Specialty Start Date End Date José Miguel Frias MD [address] [place] [address] PCP - General Internal Medicine 06/14/22 Aquatics Instructor Relationship Specialty Start Date End Date José Miguel Frias MD [address] [place] [address] PCP - General Internal Medicine 06/14/22 Aquatics Instructor Relationship Specialty Start Date End Date José Miguel Frias MD [address] [place] [address] PCP - General Internal Medicine 06/14/22 Team Status: Active Member Role Status Dates Dr. José Miguel Frias MD Primary Care Provider Active Dr. De Quiroz MD Emergency Provider Active Dr. Jhonathan Londono MD Admit Provider, A ttending Provider, Other Provider Active Team Status: Active Member Role Status Dates Dr. José Miguel Frias MD Primary Care Provider Active Dr. De Quiroz MD Emergency Provider Active Dr. Jhonathan Londono MD Admit Provider, Other Provider Active Dr. Will Bah DO Attending Provider, Other Provider Active Team Status: Inactive Member Role Status Dates Dr. José Miguel Frias MD Primary Care Provider Active Dr. De Quiroz MD Emergency Provider Active Dr. Jhonathan Londono MD Admit Provider, Other Provider Active Dr. Will Mosteller , DO Attending Provider Active Aquatics Instructor Relationship Specialty Start Date End Date José Miguel Frias MD [address] [place] [address] PCP - General Internal Medicine 06/14/22 Aquatics Instructor Relationship Specialty Start Date End Date José Miguel Frias MD [address] [place] [address] PCP - General Internal Medicine 06/14/22 Aquatics Instructor Relationship Specialty Start Date End Date José Miguel Frias MD [address] [place] [address] PCP - General Internal Medicine 06/14/22 Aquatics Instructor Relationship Specialty Start Date End Date José Miguel Frias MD [address] [place] [address] PCP - General Internal Medicine 06/14/22 Aquatics Instructor Relationship Specialty Start Date End Date José Miguel Frias MD [address] [place] [address] PCP - General Internal Medicine 06/14/22 Aquatics Instructor Relationship Specialty Start Date End Date José Miguel Frias MD [address] [place] [address] PCP - General Internal Medicine 06/14/22 Aquatics Instructor Relationship Specialty Start Date End Date José Miguel Frias MD [address] [place] [address] PCP - General Internal Medicine 06/14/22 Aquatics Instructor Relationship Specialty Start Date End Date José Miguel Frias MD [address] [place] [address] PCP - General Internal Medicine 06/14/22 Aquatics Instructor Relationship Specialty Start Date End Date José Miguel Frias MD [address] [place] [address] PCP - General Internal Medicine 06/14/22 Aquatics Instructor Relationship Specialty Start Date End Date José Miguel Frias MD [address] [place] [address] PCP - General Internal Medicine 06/14/22 Aquatics Instructor Relationship Specialty Start Date End Date Emmanuel Park DO [address] [place] [address] PCP - General Family Medicine 12/19/23 Aquatics Instructor Relationship Specialty Start Date End Date José Miguel Frias MD [address] [place] [address] PCP - General Internal Medicine 06/14/22 12/18/23 Aquatics Instructor Relationship Specialty Start Date End Date Emmanuel Park DO [address] [place] [address] PCP - General Family Medicine 12/19/23 Team Status: Inactive Member Role Status Dates Dr. José Miguel Frias MD Primary Care Provider Active Start: September 30, 2024 End: September 30, 2024 Dr. Emmanuel VELASQUEZ MD Attending Provider Active Start: September 30, 2024 End: September 30, 2024 Team Status: Inactive Member Role Status Dates Dr. José Miguel Frias MD Primary Care Provider Active Start: October 06, 2024 End: October 06, 2024 Ed Physician Provider Attending Provider Active Start: October 06, 2024 End: Christen 2nd, 2025 Ed Physician Provider Emergency Provider Active Start: October 06, 2024 End: October 06, 2024 Team Status: Active Member Role Status Dates Dr. José Miguel Frias MD Primary Care Provider Active Start: October 10, 2024 Dr. Emmanuel VELASQUEZ MD Attending Provider Active Start: October 10, 2024 Goals (unrecognized section and content) Goals may be documented in a n alternate sectionGoals may be documented in an alternate sectionGoals may be documented in an alternate sectionGoals may be documented in an alternate sectionGoals may be documented in an alternate sectionGoals may be documented in an alternate sectionGoals may be documented in an alternate sectionGoals may be documented in an alternate sectionGoals may be documented in an alternate sectionGoals may be documented in an alternate section INFORMATION SOURCE (unrecogn ized section and content) DATE CREATED AUTHOR 04/27/2024 [facility] DATE CREATED AUTHOR AUTHOR'S ORGANIZ ATION 11/24/2024 [facility] FOR RECORDS PERTAINING TO PATIENTS WHO ARE OR HAVE BEEN ENROLLED IN A CHEMICAL DEPENDENCY/SUBSTANCEABUSE PROGRAM, SOME INFORMATION MAY BE OMITTED. This clinical summary was aggregated from multiple sources. Caution should be exercised in using it in the provision of clinical care. This summary normalizes information from multiple sources, and as a consequence, information in this document may materially change the coding, format and clinical context of patient data. In addition, data may be omitted in some cases. CLINICAL DECISIONS SHOULD BE BASED ON THE PRIMARY CLINICAL RECORDS. [facility]. provides no warranty or guarantee of the accuracy or completeness of information in this document.
--- OUTSIDE RECORDS SUMMARY | 2024-11-28 05:03 | XMS RPT_ITS | CCD ---
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 Name Role Phone Marina Blanc Kulwinder Unavailable [...] sources) atorvastatin Drug Allergy 2 Muscle aching [facility] Work Phone: [phone] (20 sources) Clindamycin; Translations: [CLINDAMYCIN] Drug Allergy 9 Diarrhea [facility] Work Phone: [phone] (2 sources) HYDROmorphone Drug Allergy 2 [facility] Work Phone: [phone] (20 sources) Morphine; Translations: [MORPHINE] Drug Allergy 5 Vomiting [facility] Work Phone: [phone] (2 sources) Penicillin Drug Allergy 2 [facility] Work Phone: [phone] (20 sources) Potassium; Translations: [POTASSIUM] Drug Allergy 8 Diarrhea [facility] Work Phone: [phone] (2 sources) Sulfonamides (Antibiotic) drug allergy 2 Rash [facility] Work Phone: [phone] (20 sources) Tetracycline; Translations: [TETRACYCLINE] Drug Allergy 5 Vomiting [facility] Work Phone: [phone] (2 sources) DILAUDEN drug allergy 2 Vomitting, dizziness [facility] Work Phone: [phone] (20 sources) Amoxicillin / Clavulanate; Translations: [AMOXICILLIN-POT CLAVULANATE] Drug Allergy 0 Diarrhea [facility] (20 sources) atorvastatin; Translations: [ATORVASTATIN CALCIUM] Drug Allergy 6 Diarrhea [facility] (20 sources) Doxycycline; Translations: [DOXYCYCLINE MONOHYDRATE] Drug Allergy 7 GI Upset [facility] (20 sources) HYDROmorphone; Translations: [HYDROMORPHONE (BULK)] Drug Allergy 6 [facility] Work Phone: (20 sources) Lisinopril; Translations: [LISINOPRIL] Drug Allergy 9 [facility] (5 sources) Penicillins; Translations: [PENICILLINS] Propensity to adverse reactions 5 [facility] Work Phone: (20 sources) Procaine; Translations: [PROCAINE] Drug Allergy 1 Mental Status Change [facility] Work Phone: Comment on above: starts crying and l aughing (20 sources) Sulfonamides (Antibiotic); Translations: [SULFA (SULFONAMIDE ANTIBIOTICS)] Propensity to adverse reactions 7 Hives [facility] Work Phone: (12 sources) HYDROmorphone; Translations: [hydromorphone HCl] Drug Allergy 2 Vomiting [facility] (11 sources) Penicillins [facility] (11 sources) Sulfonamides (Antibiotic) Allergy to substance 2 [facility] (20 sources) Penicillins Propensity to adverse reactions 5 [facility] Work Phone: (14 sources) Latex; Translations: [LATEX] Drug Allergy 3 Other: See Comments [facility] Work Phone: (1 source) atorvastatin Drug Allergy 5 [facility] (1 source) Penicillins Drug allergy (disorder) 5 [facility] (1 source) Procaine Drug Allergy 5 [facility] (1 source) Sulfonamides (Antibiotic) Drug allergy (disorder) [facility] Medications Current Medications Medication Drug [...] as needed. Take 1 capsule by mo [facility] three times daily as needed for anxiety. [...] One tablet by mouth daily LEVOTHYROXINE SODIUM [id number] Gregoria Diaz Start: 05-23-2011 take 1 tablet by aubrey th once daily LEVOTHYROXINE SODIUM 88 MCG TABS One tablet by mouth daily LEVOTHYROXINE SODIUM [id number] Gutierrez Tolbert MD Comment on above: TAKE ONE TABLET [...] 5-500 MG TABS as needed HYDROCODONE-ACETAMI NOPHEN [id number] Gutierrez Tolbert MD [id number] actuat albuterol 0.09 mg/actuat metered dose [...] tablet by mouth twice daily CALCIUM CARBONATE [id number] Gutierrez Tolbert MD chlorthalidone 25 mg oral [...] One tablet by mouth daily CITALOPRAM HYDROBROMIDE [id number] Gutierrez Tolbert MD Start: 02-23-2012 End: 10-02-2013 take 1 tablet by mouth once daily CELEXA 20 MG TABS One tablet by mouth daily CITALOPRAM HYDROBROMIDE [id number] Gutierrez Tolbert MD doxycycline monohydrate 100 mg [...] by mouth daily OMEGA-3 FATTY ACIDS CAPS [id number] Gutierrez Tolbert MD Start: 05-23-2011 take 1 tablet by aubrey th once daily FISH OIL CAPS One tablet by mouth daily OMEGA-3 FATTY ACIDS CAPS [id number] Gregoria Diaz hydroCHLOROthiazide 25 mg oral tablet [...] TABS One tablet by mouth daily HYDROCHLOROTHIAZIDE [id number] Gutierrez Tolbert MD Comment on above: Take 1 capsule by mo [facility] once daily. Take 1 tablet by aubrey [...] on above: Take 1 capsule by mo [facility] four times daily as needed. Take 2 [...] One tablet by mouth daily LOSARTAN POTASSIUM [id number] Gutierrez Tolbert MD Comment on above: take [...] 12.5 MG TABS as needed MECLIZINE HCL [id number] Gutierrez Tolbert MD Start: 11-18-2013 End: 02-23-2023 [...] One tablet by mouth daily MULTIPLE VITAMIN [id number] Gregoria Diaz mupirocin 0.02 mg/mg topical ointment [...] Comment on above: Take 1 tablet by [facility] twice daily as needed for Pain. Take with food. potassium chloride 8 meq extended release oral capsule (1 source) Start: 03-16-20 End: 03-20-20 take 1 capsule by mouth once daily potassium chloride SR (MICRO-K) 8 mEq cpER Take 1 capsule by mouth once daily. 30 capsule 0 03/16/2023 03/20/2023 Discontinued Comment on above: Take 1 capsule by mo [facility] once daily. sertraline 50 mg oral tablet [...] 0.1 % CREA as directed TRIAMCINOLONE ACETONIDE [id number] Gutierrez Tolbert MD Start: 02-22-2017 TRIAMCINOLONE ACETONIDE 0.1 % PSTE as directed TRIAMCINOLONE ACETONIDE [id number] Gutierrez Tolbert MD Comment on above: Apply [...] TABS One tablet by mouth daily VALSARTAN [id number] Karime Franks RN Problems Active Problems Problem [...] (1 source) Patient encounter status; Translations: [Other senior care (current) drug therapy] Episodic Other connective tissue [...] 10-10-2024 Anion gap [Moles/Vol] 10 mmol/L 5-15 [facility] BUN/creatinine ratioOrdered By: Emmanuel Park on 10-10-2024 Urea nitrogen/Creatinine [Mass ratio] 38.1 mg/mg High 10-20 [facility] Bilirubin, totalOrdered By: Emmanuel Park on 10-10-2024 Bilirubin [Mass/Vol] 0.55 mg/dL 0.00-1.30 [facility] Carbon dioxide, total [Moles /volume] in Central venous bloodOrdered By: Emmanuel Park on 10-10-2024 CO2 [Moles/Vol] 26.1 mmol/L 21.0-32.0 [facility] Chloride assayOrdered By: Costa Park on 10-10-2024 Chloride [Moles/Vol] 103 mmol/L 98-108 [facility] Glomerular filtration rate ( GFR) estimation/1.73 sq m using serum, plasma, or whole bOrdered By: Emmanuel Park on 10-10-2024 GFR/1.73 sq M.predicted among non-blacks MDRD (S/P/Bld) [Vol rate/Area] 56 mL/min/{1.73_m2} Low >60 [facility] Comment on above: mL/min/1.73m2 CKD-EP I Creatinine Equation (2020) Hemoglobin A1c percentageOrd ered By: Emmanuel Park on 10-10-2024 HbA1c (Bld) [Mass fraction] 5.6 % <5.7 [facility] Comment on above: Normal < 5.7 % Predi abetic 5.7 - 6.4 % Diabetic >or= 6.5 % Please note range changes. Laboratory - Chemistry and C hemistry - challengeOrdered By: Emmanuel Park on 10-10-2024 AST [Catalytic activity/Vol] 18 U/L <32 [facility] Potassium measurement (mass/ volume)Ordered By: Emmanuel Park on 10-10-2024 Potassium (Unsp spec) [Mass/Vol] 4.9 mmol/L 3.3-5.1 [facility] Serum creatinine measurement (mass/volume)Ordered By: Emmanuel Park on 10-10-2024 Creatinine [Mass/Vol] 0.97 mg/dL 0.70-1.20 [facility] Serum globulin measurementOr dered By: Emmanuel Park on 10-10-2024 Globulin (S) [Mass/Vol] 2.6 g/dL 2.2-4.2 [facility] Serum glucose measurement (m ass/volume)Ordered By: Emmanuel Pakr on 10-10-2024 Glucose [Mass/Vol] 85 mg/dL 70-99 [facility] Serum or plasma alanine johnson otransferase (ALT) measurementOrdered By: Emmanuel Park on 10-10-2024 ALT [Catalytic activity/Vol] 11 U/L <35 [facility] Serum or plasma albumin jalil urement (mass/volume)Ordered By: Emmanuel Park on 10-10-2024 Albumin [Mass/Vol] 4.0 g/dL 3.4-4.8 [facility] Serum or plasma albumin/glob ulin mass ratioOrdered By: Emmanuel Park on 10-10-2024 Albumin/Globulin [Mass ratio] 1.5 {ratio} 0.9-2.4 [facility] Serum or plasma alkaline jama sphatase measurementOrdered By: Emmanuel Park on 10-10-2024 ALP [Catalytic activity/Vol] 84 U/L 35-104 [facility] Serum or plasma calcium jalil urement (mass/volume)Ordered By: Emmanuel Park on 10-10-2024 Calcium [Mass/Vol] 9.4 mg/dL 7.6-11.0 [facility] Serum or plasma urea nitroge n measurement (mass/volume)Ordered By: Emmanuel Park on 10-10-2024 Urea nitrogen [Mass/Vol] 37 mg/dL High 4-19 [facility] Sodium levelOrdered By: Harlan Park on 10-10-2024 Sodium [Moles/Vol] 139 mmol/L 133-145 [facility] TSH DL <= 0.005 mIU/L QnOrde red By: Emmanuel Park on 10-10-2024 TSH Qn 1.110 uIU/mL 0.300-4.20 0 [facility] ThyroxineOrdered By: Emmanuel camacho on 10-10-2024 T4 [Mass/Vol] 6.1 ug/dL 4.8-13.9 [facility] Total proteinOrdered By: Mami Park on 10-10-2024 Protein [Mass/Vol] 6.6 g/dL 5.9-8.4 [facility] Brain/Head without Contrasto n 10-06-2024 Brain/Head without Contrast [facility] Imaging Services [address], [place] [id number] Brain/Head without Contrast MR#: [id number] Acct: [id number] Name: CHRISTY FOFANA Rep #: [id number] : 1935 F 89 From: Hayden Ferreira MD PCP: Dr. José Miguel Frias MD Status: PRE ER Study: Brain/Head without Contrast Date of Exam: 07/01 Exam# [id number] Ordering Dr: Lc Lo MD PROCEDURE: BRAIN/HEAD [...] IMPRESSION: No acute intracranial abnormality. Reading Location: [facility] CC: Dr. Lc Lo MD; Dr. José Miguel Frias MD Lumber Sorter Machine: Signed Normal [facility] Bilirubin Test strip Ql (U)O rdered By: Emmanuel Park on 09-30-2024 Bilirubin Ql (U) Negative Negative [facility] Ketones Test strip Ql (U)Ord ered By: Emmanuel Park on 09-30-2024 Ketones Ql (U) Negative Negative [facility] Microscopic analysis of urin e for red blood cells (RBC)Ordered By: Emmanuel Park on 09-30-2024 Microscopic analysis of urine for red blood cells (RBC) 0 SEEN /hpf 0-5 [facility] Mucus LM Ql (Urine sed)Order ed By: Emmanuel Park on 09-30-2024 Mucus Ql (Urine sed) 0 SEEN /hpf [facility] Nitrite Test strip Ql (U)Ord ered By: Emmanuel Park on 09-30-2024 Nitrite Ql (U) Negative Negative [facility] Protein Test strip Ql (U)Ord ered By: Emmanuel Park on 09-30-2024 Protein Ql (U) 15 mg/dl High Negative [facility] Squamous epithelial cells de tection in urine sediment by light microscopyOrdered By: Emmanuel Park on 09-30-2024 Epithelial cells.squamous LM Ql (Urine sed) 0-5 SEEN /hpf 5-10 [facility] Urine clarityOrdered By: Mami Park on 09-30-2024 Clarity (U) Clear Clear [facility] Urine color determinationOrd ered By: Emmanuel Park on 09-30-2024 Color (U) Yellow Yellow [facility] Urine cultureOrdered By: Mami Park on 09-30-2024 Bacteria identified Cx Nom (U) Positive Abnormal [facility] Urine glucose detectionOrder ed By: Emmanuel Park on 09-30-2024 Glucose Ql (U) Normal mg/dl Normal [facility] Urine leukocyte esterase det ection by dipstickOrdered By: Emmanuel Park on 09-30-2024 Leukocyte esterase Test strip Ql (U) Negative Negative [facility] Urine pHOrdered By: Emmanuel mora on 09-30-2024 pH (U) 6.0 [pH] 5.0 - 8.0 [facility] Urine sediment bacteria coun t by microscopy (number/high power field)Ordered By: Emmanuel Park on 09-30-2024 Bacteria LM.HPF (Urine sed) [#/Area] 0 /[HPF] None Seen [facility] Urine specific gravity measu rementOrdered By: Emmanuel Park on 09-30-2024 Specific gravity (U) [Rel density] 1.020 1.002-1.03 0 [facility] Urine urobilinogen measureme ntOrdered By: Emmanuel Park on 09-30-2024 Urobilinogen Ql (U) Normal mg/dl Normal [facility] White blood cell countOrdere d By: Emmanuel Park on 09-30-2024 White blood cell count 0-5 SEEN /hpf 0-5 [facility] Anion gap in Serum or Plasma Ordered By: Emmanuel Park on 08-21-2024 Anion gap [Moles/Vol] 9 mmol/L 5-15 [facility] BUN/creatinine ratioOrdered By: Emmanuel Park on 08-21-2024 Urea nitrogen/Creatinine [Mass ratio] 28.9 mg/mg High 10-20 [facility] Bilirubin, totalOrdered By: Emmanuel Park on 08-21-2024 Bilirubin [Mass/Vol] 0.48 mg/dL 0.00-1.30 [facility] Carbon dioxide, total [Moles /volume] in Central venous bloodOrdered By: Emmanuel Park on 08-21-2024 CO2 [Moles/Vol] 25.6 mmol/L 21.0-32.0 [facility] Chloride assayOrdered By: Costa Park on 08-21-2024 Chloride [Moles/Vol] 105 mmol/L 98-108 [facility] Glomerular filtration rate ( GFR) estimation/1.73 sq m using serum, plasma, or whole bOrdered By: Emmanuel Park on 08-21-2024 GFR/1.73 sq M.predicted among non-blacks MDRD (S/P/Bld) [Vol rate/Area] 69 mL/min/{1.73_m2} >60 [facility] Comment on above: mL/min/1.73m2 CKD-EP I Creatinine Equation (2020) Laboratory - Chemistry and C hemistry - challengeOrdered By: Emmanuel Park on 08-21-2024 AST [Catalytic activity/Vol] 19 U/L <32 [facility] Potassium measurement (mass/ volume)Ordered By: Emmanuel Park on 08-21-2024 Potassium (Unsp spec) [Mass/Vol] 4.1 mmol/L 3.3-5.1 [facility] Serum creatinine measurement (mass/volume)Ordered By: Emmanuel Park on 08-21-2024 Creatinine [Mass/Vol] 0.82 mg/dL 0.70-1.20 [facility] Serum globulin measurementOr dered By: Emmanuel Prak on 08-21-2024 Globulin (S) [Mass/Vol] 2.4 g/dL 2.2-4.2 [facility] Serum glucose measurement (m ass/volume)Ordered By: Emmanuel Park on 08-21-2024 Glucose [Mass/Vol] 80 mg/dL 70-99 [facility] Serum or plasma alanine johnson otransferase (ALT) measurementOrdered By: Emmanuel Park on 08-21-2024 ALT [Catalytic activity/Vol] 12 U/L <35 [facility] Serum or plasma albumin jalil urement (mass/volume)Ordered By: Emmanuel Park on 08-21-2024 Albumin [Mass/Vol] 3.6 g/dL 3.4-4.8 [facility] Serum or plasma albumin/glob ulin mass ratioOrdered By: Emmanuel Park on 08-21-2024 Albumin/Globulin [Mass ratio] 1.5 {ratio} 0.9-2.4 [facility] Serum or plasma alkaline jama sphatase measurementOrdered By: Emmanuel Park on 08-21-2024 ALP [Catalytic activity/Vol] 75 U/L 35-104 [facility] Serum or plasma calcium jalil urement (mass/volume)Ordered By: Emmanuel Park on 08-21-2024 Calcium [Mass/Vol] 8.8 mg/dL 7.6-11.0 [facility] Serum or plasma urea nitroge n measurement (mass/volume)Ordered By: Emmanuel Park on 08-21-2024 Urea nitrogen [Mass/Vol] 24 mg/dL High 4-19 [facility] Sodium levelOrdered By: Harlan Park on 08-21-2024 Sodium [Moles/Vol] 139 mmol/L 133-145 [facility] Total proteinOrdered By: Mami Park on 08-21-2024 Protein [Mass/Vol] 6.0 g/dL 5.9-8.4 [facility] CNPNon 04-23-2024 CNPN Telephone (FAMPTW) CHRISTY FOFANA ([id number]) 1935 F Date Time Provider Department 04/23/24 JOSÉ MIGUEL FRIAS During your visit today, we recorded the following information about you: Niecy Mary 04/23/2024 2:29 PM Signed [facility] is calling José Miguel Frias MD today to request a medication not on current med list: Disp Refills Start End hydrOXYzine pamoate (VISTARIL) 25 mg capsule 30 5 Patient has been identified by name and birthdate. Closing statement: Results or non-symptom based questions: Thank you for calling [facility], your call will be returned within the next business day. Niecy Dugan [facility] Delfina Hernandez MA 04/23/2024 4:08 PM Signed [...] Date Reviewed: 05/29/2023 Reviewed by: Mckenzie Funk APRN.AIR DIRECTOR - Fully Assessed Reason for Visit: request [...] [I87.2] 10/28 (more content not included)... Normal [facility] Urine Cultureon 04-12-2024 URC Culture exhibits no growth. Normal [facility] Comment on above: Performed By: #### M 100.2200 #### [facility] [address] [place], [address] 12 Lead EKGon 04-11-2024 12 Lead EKG [facility] Cardiovascular Services [address] [place] [address] 12 Lead EKG 04/11/24 0610 MR#: [id number] Acct: [id number] Name: CHRISTY FOFANA Rep #: [id number] : 1935 88 From: Cory Hopper MD [...] QRS widening ( R in aVL , [place] product ) Abnormal ECG Confirmed by Cory Hopper ([id number]), editor & co founder NADEEM HINKLE ([id number]) on 04/14/2024 6:52:09 AM Referred By: Confirmed By: Cory Hopper 04/14/2452 Date Cory Hopper MD CC: Dr. José Miguel Frias MD; Ellis Avila DO Signed Normal [facility] Basic Metabolic Profile (BMP )on 04-11-2024 BUN/CRE 39.7 RATIO High 10-20 [facility] Comment on above: Performed By: #### L 501.5200, L100.0100, L500.2500 #### [facility] [address] [place], [address] CA,Total 9.4 mg/dL Normal 8.5-10.1 [facility] Comment on above: Performed By: #### L 501.5200, L100.0100, L500.2500 #### [facility] [address] [place], [address] Chloride [Moles/Vol] 103 mmol/L Normal 98-107 [facility] Comment on above: Performed By: #### L 501.5200, L100.0100, L500.2500 #### [facility] [address] [place], [address] CO2 [Moles/Vol] 27.0 mmol/L Normal 21.0-32.0 [facility] Comment on above: Performed By: #### L 501.5200, L100.0100, L500.2500 #### [facility] [address] [place], [address] Creatinine [Mass/Vol] 0.96 mg/dL Normal 0.55-1.02 [facility] Comment on above: Result Comment: The validity of the calculated GFR GFRAA in patients over 70 years has not been determined. Clinical correlation is essential. Performed By: #### L 501.5200, L100.0100, L500.2500 #### [facility] [address] [place], [address] ECRCL 49.15 ml/min Normal [facility] Comment on above: Performed By: #### L 501.5200, L100.0100, L500.2500 #### [facility] [address] [place], [address] EST GFR - AA 71 mL/min Normal >60 [facility] Comment on above: Result Comment: Afri can [place]an GFR Calc Performed By: #### L 501.5200, L100.0100, L500.2500 #### [facility] [address] [place], [address] GAP 7 Normal 5-15 [facility] Comment on above: Performed By: #### L 501.5200, L100.0100, L500.2500 #### [facility] [address] [place], [address] GFR/1.73 sq M.predicted among non-blacks MDRD (S/P/Bld) [Vol rate/Area] 59 mL/min/{1.73_m2} Low >60 [facility] Comment on above: Result Comment: Non- GFR Calc Performed By: #### L 501.5200, L100.0100, L500.2500 #### [facility] [address] [place], [address] Glucose [Mass/Vol] 112 mg/dL High 74-106 [facility] Comment on above: Result Comment: Fast ing Glucose result from 100 to 125 mg/dL suggests IMPAIRED HOMEOSTASIS per A.D.A. criteria. Performed By: #### L 501.5200, L100.0100, L500.2500 #### [facility] [address] [place], [address] Potassium [Moles/Vol] 4.1 mmol/L Normal 3.5-5.1 [facility] Comment on above: Performed By: #### L 501.5200, L100.0100, L500.2500 #### [facility] [address] [place], [address] Sodium [Moles/Vol] 137 mmol/L Normal 136-145 [facility] Comment on above: Performed By: #### L 501.5200, L100.0100, L500.2500 #### [facility] [address] [place], [address] Urea nitrogen [Mass/Vol] 38 mg/dL High 7-18 [facility] Comment on above: Performed By: #### L 501.5200, L100.0100, L500.2500 #### [facility] [address] [place], [address] Brain/Head without Contrasto n 04-11-2024 Brain/Head without Contrast [facility] Imaging Services [address] [place] [address] Brain/Head without Contrast MR#: [id number] Acct: [id number] Name: CHRISTY FOFANA Rep #: [id number] : 1935 F 88 From: Mario Ruvalcaba MD PCP: Dr. José Miguel Frias MD Status: [facility] Study: Brain/Head without Contrast Date of Exam: 10/28 Exam# [id number] Ordering Dr: Ellis Avila DO [id number] EXAM: CT HEAD WITHOUT INTRAVENOUS CONTRAST CLINICAL [...] José Miguel Frias MD; Ellis Avila DO Lumber Sorter Machine: Signed Normal [facility] CBC W/Diff, Automatedon 12-0 Absolute Lymph 1.57 X10 3/uL Normal 0.83-4.51 [facility] Comment on above: Performed By: #### L 501.5200, L100.0100, L500.2500 #### [facility] [address] [place], [address] Absolute Neut 4.2 X10 3/uL Normal 2.0-7.7 [facility] Comment on above: Performed By: #### L 501.5200, L100.0100, L500.2500 #### [facility] [address] [place], [address] Basophils/100 WBC (Bld) 0.6 % Normal 0-1 [facility] Comment on above: Performed By: #### L 501.5200, L100.0100, L500.2500 #### [facility] [address] [place], [address] Eosinophils/100 WBC (Bld) 3.0 % Normal 0-5 [facility] Comment on above: Performed By: #### L 501.5200, L100.0100, L500.2500 #### [facility] [address] [place], [address] Erythrocyte distribution width (RBC) [Ratio] 12.9 % Normal 11.6-14.6 [facility] Comment on above: Performed By: #### L 501.5200, L100.0100, L500.2500 #### [facility] [address] [place], [address] Hematocrit (Bld) [Volume fraction] 41.4 % Normal 37-47 [facility] Comment on above: Performed By: #### L 501.5200, L100.0100, L500.2500 #### [facility] [address] [place], [address] Hemoglobin (Bld) [Mass/Vol] 13.3 g/dL Normal 12.0-15.0 [facility] Comment on above: Performed By: #### L 501.5200, L100.0100, L500.2500 #### [facility] [address] [place], [address] IG% 0.300 Normal 0.0-0.9 [facility] Comment on above: Result Comment: IG% - Immature Granulocytes (promyelocytes, myelocytes and metamyelocytes) > 1% indicates that a LEFT SHIFT is Present. Performed By: #### L 501.5200, L100.0100, L500.2500 #### [facility] [address] [place], [address] Lymphocytes/100 WBC (Bld) 23.4 % Normal 19-41 [facility] Comment on above: Performed By: #### L 501.5200, L100.0100, L500.2500 #### [facility] [address] [place], [address] MCH (RBC) [Entitic mass] 29.7 pg Normal 27.0-32.0 [facility] Comment on above: Performed By: #### L 501.5200, L100.0100, L500.2500 #### [facility] [address] [place] [place], [address] MCHC (RBC) [Mass/Vol] 32.1 g/dL Normal 32-36 [facility] Comment on above: Performed By: #### L 501.5200, L100.0100, L500.2500 #### [facility] [address] [place], [address] MCV (RBC) [Entitic vol] 92.4 fL Normal 81-99 [facility] Comment on above: Performed By: #### L 501.5200, L100.0100, L500.2500 #### [facility] [facility] [address] [place], [address] Monocytes/100 WBC (Bld) 9.8 % Normal 0-10 [facility] Comment on above: Performed By: #### L 501.5200, L100.0100, L500.2500 #### [facility] [address] [place], [address] Neutrophils/100 WBC (Bld) 62.9 % Normal 47-70 [facility] Comment on above: Performed By: #### L 501.5200, L100.0100, L500.2500 #### [facility] [address] [place], [address] Nucleated RBC (Bld) [#/Vol] 0 10*3/uL Normal 0-5 [facility] Comment on above: Performed By: #### L 501.5200, L100.0100, L500.2500 #### [facility] [address] [place], [address] Platelet mean volume (Bld) [Entitic vol] 9.7 fL Normal 6.2-12.0 [facility] Comment on above: Performed By: #### L 501.5200, L100.0100, L500.2500 #### [facility] [address] [place], [address] Platelets (Bld) [#/Vol] 208 10*3/uL Normal 150-450 [facility] Comment on above: Performed By: #### L 501.5200, L100.0100, L500.2500 #### [facility] [address] [place], [address] RBC (Bld) [#/Vol] 4.48 10*6/uL Normal 4.2-5.4 [facility] Comment on above: Performed By: #### L 501.5200, L100.0100, L500.2500 #### [facility] [address] [place], [address] RDW SD 43.6 fl Normal 35.1-43.9 [facility] Comment on above: Performed By: #### L 501.5200, L100.0100, L500.2500 #### [facility] [address] [place], [address] WBC (Bld) [#/Vol] 6.7 10*3/uL Normal 4.4-11.0 [facility] Comment on above: Performed By: #### L 501.5200, L100.0100, L500.2500 #### [facility] [address] [place], [address] Emergency Department Summary on 04-11-2024 Emergency Department Summary [facility] Medical Records Department [address] [place] [address] Emergency Department Summary 04/11/24 MR#: [id number] Acct: [id number] Name: CHRISTY FOFANA Rep #: [id number] : 1935 88 From: Ellis Avila DO [...] because patient did fall several times at [facility] last week and she was not [...] Patient is an 88-year-old female from the longterm with past medical history of hypertension hyperlipidemia [...] worsening symptoms was sent in for evaluation [facility] Medical History Anxiety Spinal stenosis Depression [...] Never smok (more content not included)... Normal [facility] Magnesiumon 04-11-2024 Magnesium [Mass/Vol] 2.5 mg/dL Normal 1.6-2.6 [facility] Comment on above: Performed By: #### L 501.5200, L100.0100, L500.2500 #### [facility] [address] [place], [address] Urinalysis, Completeon 04-11 EPI,SQUAMOUS 0-5 SEEN Normal 5-10 [facility] Comment on above: Order Comment: BLADD ER TAP Performed By: #### L 400.0001 #### [facility] [address] [place], [address] WBC 0-5 SEEN Normal 0-5 [facility] Comment on above: Order Comment: BLADD ER TAP Performed By: #### L 400.0001 #### [facility] [address] [place], [address] BACTERIA 0 SEEN Normal None Seen [facility] Comment on above: Order Comment: BLADD ER TAP Performed By: #### L 400.0001 #### [facility] [address] [place], [address] Mucus Ql (Urine sed) 0 SEEN Normal [facility] Comment on above: Order Comment: BLADD ER TAP Performed By: #### L 400.0001 #### [facility] [address] [place], [address] RBC 0 SEEN Normal 0-5 [facility] Comment on above: Order Comment: BLADD ER TAP Performed By: #### L 400.0001 #### [facility] [address] [place], [address] [facility]2023 [facility] CHRISTY FOFANA ([id number]) 1935 F Date Time Provider Department 12/19/23 JOSÉ MIGUEL FRIAS During your visit today, we recorded the following information about you: Lina Berry LPN 12/19/2023 4:52 PM Signed POPULATION HEALTH NAVIGATION OUTREACH Action/FYI Reason for Outreach Care Gap/HCC or Scheduling Wellness Visits Care Gaps due: Medicare Annual Wellness Visit Patient Contacted: Patient is currently at [place], she is seeing in-house Dr. [place] [...] Date Reviewed: 05/29/2023 Reviewed by: Mckenzie Funk, PROCESS IMPROVEMENT MANAGER.AIR DIRECTOR - Fully Assessed Reason for Visit: Patient [...] with beha (more content not included)... Normal [facility] CNOVon 05-29-2023 CNOV Office Visit (INTMWS ) CHRISTY FOFANA ([id number]) 1935 F Date Time Provider Department 05/29/23 1:00 PM MCKENZIE FUNK INTMWS During your visit today, we recorded the following information about you: Temperature Pulse Respiration Blood pressure 97.5 degrees 91/minute 18/minute 146/78 Weight 84.8 kg Mckenzie Funk, PROCESS IMPROVEMENT MANAGER.AIR DIRECTOR 05/29/2023 3:06 PM Signed CC: Patient presents [...] Paternal Grandm (more content not included)... Normal [facility] 05-28-2023 CNPN Telephone (INTMWS) CHRISTY FOFANA ([id number]) 1935 F Date Time Provider Department 05/28/23 JOSÉ MIGUEL FRIAS INTWS During your visit today, we recorded the following information about you: Breanne Boggs RN 05/28/2023 11:08 AM Signed Rachael, nurse at [facility] calling and asking for provider to advise on their fax they sent to PCP office on 05/25/23. Rachael reports patient's bilateral lower extremities are much worse today. Questionable cellulitis. Please advise Rachael at [facility] at [phone]. Thank you. José Miguel Frias MD 05/28/2023 12:19 PM Signed Appointment in office if possible or video at the least. Report any fever. Elsy Rosales, MELCHOR 05/28/2023 1:13 PM Signed Maria Luisa at [facility] called and is notified of providers [...] unspecified [E78.00] (more content not included)... Normal [facility] Basophil percentageOrdered B y: Jhonathan Londono on 02-24-2023 Chloride [Moles/Vol] 110 mmol/L 98-107 [facility] Glucose [Mass/Vol] 80 mg/dL 74-106 [facility] Potassium [Moles/Vol] 3.4 mmol/L 3.5-5.1 [facility] Sodium [Moles/Vol] 143 mmol/L 136-145 [facility] - Chemistry and C hemistry - challengeOrdered By: Jhonathan Londono on 02-24-2023 CO2 [Moles/Vol] 26.0 mmol/L 21.0-32.0 [facility] Urea nitrogen/Creatinine [Mass ratio] 61.0 mg/mg 10- [facility] No Panel InformationOrdered By: Jhonathan Londono on 02-24-2023 Estimated Creatinine Clearance Calc 46.10 ml/min [facility] Estimated GFR (MDRD) Amer 76 mL/min >60 [facility] Comment on above: GFR Calc Estimated GFR (MDRD) Non-Af Amer 63 mL/min >60 [facility] Comment on above: Non- GFR Calc Thyroid Stimulating Hormone (TSH) 0.60 uIU/mL 0.358-3.74 [facility] Serum or plasma calcium jalil urement (mass/volume)Ordered By: Jhonathan Londono on 02-24-2023 Calcium [Mass/Vol] 8.4 mg/dL 8.5-10.1 [facility] Serum or plasma creatinine m easurement (mass/volume)Ordered By: Jhonathan Londono on 02-24-2023 Creatinine [Mass/Vol] 0.90 mg/dL 0.55-1.02 [facility] Comment on above: The validity of the calculated GFR & GFRAA in patients over 70 years has not been determined. Clinical correlation is essential. Serum or plasma urea nitroge n measurement (mass/volume)Ordered By: Jhonathan Londono on 02-24-2023 Urea nitrogen [Mass/Vol] 55 mg/dL 7-18 [facility] Thin prep Papanicolaou smear with manual screeningOrdered By: Jhonathanmckinley Londono on 02-24-2023 Thin prep Papanicolaou smear with manual screening 7 5-15 [facility] Absolute lymphocyte countOrd ered By: De Quiroz on 02-23-2023 Lymphocytes Auto (Unsp spec) [#/Vol] 1.15 10*3/uL 0.83-4.51 [facility] Basophil percentageOrdered B y: De Quiroz on 02-23-2023 Basophil percentage 0-5 SEEN /hpf 0-5 [facility] Basophils/100 WBC (Bld) 0.3 % 0-1 [facility] Bilirubin [Mass/Vol] 0.80 mg/dL 0.20-1.00 [facility] Comment on above: For patients on eltr ombopag therapy, use of Dimension [place] TBIL is not recommended. Eosinophils/100 WBC (Bld) 2.5 % 0-5 [facility] Neutrophils (Bld) [#/Vol] 4.4 10*3/uL 2.0-7.7 [facility] Neutrophils/100 WBC (Bld) 69.0 % 47-70 [facility] Protein [Mass/Vol] 6.8 g/dL 6.4-8.2 [facility] WBC (Bld) [#/Vol] 6.4 10*3/uL 4.4-11.0 [facility] Bilirubin Test strip Ql (U)O rdered By: De Quiroz on 02-23-2023 Bilirubin Ql (U) Negative Negative [facility] Blood erythrocytes count (nu mber/volume)Ordered By: De Quiroz on 02-23-2023 RBC (Bld) [#/Vol] 3.84 10*6/uL 4.2-5.4 [facility] Blood hemoglobin measurement (mass/volume)Ordered By: De Quiroz on 02-23-2023 Hemoglobin (Bld) [Mass/Vol] 11.6 g/dL 12.0-15.0 [facility] Blood lymphocytes/100 leukoc ytesOrdered By: De Quiroz on 02-23-2023 Lymphocytes/100 WBC (Bld) 18.1 % 19-41 [facility] Blood monocytes/100 leukocyt esOrdered By: De Quiroz on 02-23-2023 Monocytes/100 WBC (Bld) 9.6 % 0-10 [facility] Blood platelet mean volumeOr dered By: De Quiroz on 02-23-2023 Platelet mean volume (Bld) [Entitic vol] 10.1 fL 6.2-12.0 [facility] Determination of erythrocyte mean corpuscular volume (MCV)Ordered By: De Quiroz on 02-23-2023 MCV (RBC) [Entitic vol] 90.9 fL 81-99 [facility] Hematocrit Auto (Bld) [Volum e fraction]Ordered By: De Quiroz on 02-23-2023 Hematocrit (Bld) [Volume fraction] 34.9 % 37-47 [facility] Influenza virus A and B and SARS-CoV-2 (COVID-19) Ag panel - Upper respiratory specimOrdered By: De Quiroz on 02-23-2023 SARS-CoV-2 (COVID-19) RNA YOSHI+probe Ql (Resp) [facility] Ketones Test strip Ql (U)Ord ered By: De Quiroz on 02-23-2023 Ketones Ql (U) Negative Negative [facility] - Chemistry and C hemistry - challengeOrdered By: De Quiroz on 02-23-2023 ALP [Catalytic activity/Vol] 86 U/L 45-117 [facility] ALT [Catalytic activity/Vol] 26 U/L 13-56 [facility] Globulin (S) [Mass/Vol] 3.1 g/dL 2.2-4.2 [facility] - Chemistry and C hemistry - challengeOrdered By: Jhonathan Londono on 02-23-2023 Magnesium [Mass/Vol] 2.3 mg/dL 1.6-2.6 [facility] - Hematology and Cell countsOrdered By: De Quiroz on 02-23-2023 Erythrocyte distribution width (RBC) [Entitic vol] 41.9 fL 35.1-43.9 [facility] Erythrocyte distribution width (RBC) [Ratio] 12.6 % 11.6-14.6 [facility] Immature granulocytes/100 WBC (Bld) 0.500 % 0.0-0.9 [facility] Comment on above: IG% - Immature Granu locytes (promyelocytes, myelocytes and metamyelocytes) > 1% indicates that a LEFT SHIFT is Present. MCH (RBC) [Entitic mass] 30.2 pg 27.0-32.0 [facility] Nucleated RBC/100 WBC (Bld) [Ratio] 0 % 0-5 [facility] MCHC Auto (RBC) [Mass/Vol]Or dered By: De Quiroz on 02-23-2023 MCHC (RBC) [Mass/Vol] 33.2 g/dL 32-36 [facility] Mucus LM Ql (Urine sed)Order ed By: De Quiroz on 02-23-2023 Mucus Ql (Urine sed) 0 SEEN /hpf [facility] Nitrite Test strip Ql (U)Ord ered By: De Quiroz on 02-23-2023 Nitrite Ql (U) Negative Negative [facility] Platelets bldOrdered By: Juice Quiroz on 02-23-2023 Platelets (Bld) [#/Vol] 198 10*3/uL 150-450 [facility] Protein Test strip Ql (U)Ord ered By: De Quiroz on 02-23-2023 Protein Ql (U) Negative Negative [facility] Serum or plasma albumin jalil urement (mass/volume)Ordered By: De Quiroz on 02-23-2023 Albumin [Mass/Vol] 3.7 g/dL 3.2-5.0 [facility] Serum or plasma albumin/glob ulin mass ratioOrdered By: De Quiroz on 02-23-2023 Albumin/Globulin [Mass ratio] 1.2 {ratio} 0.9-2.4 [facility] Squamous epithelial cells de tection in urine sediment by light microscopyOrdered By: De Quiroz on 02-23-2023 Epithelial cells.squamous LM Ql (Urine sed) 0-5 SEEN /hpf 5-10 [facility] Thin prep Papanicolaou smear with manual screeningOrdered By: De Quiroz on 02-23-2023 Thin prep Papanicolaou smear with manual screening 31 U/L 15-37 [facility] Urine blood detectionOrdered By: De Quiroz on 02-23-2023 RBC Ql (U) Negative Negative [facility] RBC Ql (U) 0 SEEN /hpf 0-5 [facility] Urine clarityOrdered By: Juice Quiroz on 02-23-2023 Clarity (U) Clear Clear [facility] Urine color determinationOrd ered By: De Quiroz on 02-23-2023 Color (U) Yellow Yellow [facility] Urine glucose detectionOrder ed By: De Quiroz on 02-23-2023 Glucose Ql (U) Normal mg/dl Normal [facility] Urine leukocyte esterase det ection by dipstickOrdered By: De Quiroz on 02-23-2023 Leukocyte esterase Test strip Ql (U) 25 /ul Negative [facility] Urine pHOrdered By: De enamorado on 02-23-2023 pH (U) 5.0 [pH] 5.0 - 8.0 [facility] Urine sediment bacteria coun t by microscopy (number/high power field)Ordered By: De Quiroz on 02-23-2023 Bacteria LM.HPF (Urine sed) [#/Area] 0 /[HPF] None Seen [facility] Urine specific gravity measu rementOrdered By: De Quiroz on 02-23-2023 Specific gravity (U) [Rel density] 1.015 1.002-1.03 0 [facility] Urobilinogen Auto test strip Ql (U)Ordered By: De Quiroz on 02-23-2023 Urobilinogen Ql (U) Normal mg/dl Normal [facility] ECG COMPLETEon 12-25-2022 Atrial Rate 59 BPM [facility] Calculated P [place] 97 degrees [facility] Calculated R [place] -47 degrees [facility] Calculated T [place] 2 degrees [facility] P-R Interval 214 ms [facility] QRS Duration 122 ms [facility] QT Interval 506 ms [facility] QTC Calculation (Bazett) 500 ms [facility] Ventricular Rate 59 BPM [facility] Atrial Rate 53 BPM [facility] Calculated P [place] 101 degrees [facility] Calculated R [place] -48 degrees [facility] Calculated T [place] -10 degrees [facility] P-R Interval 218 ms [facility] QRS Duration 118 ms [facility] QT Interval 496 ms [facility] QTC Calculation (Bazett) 465 ms [facility] Ventricular Rate 53 BPM [facility] XR Foot - right AP and Later al and obliqueon 11-03-2022 IMPRESSION: NO ACUTE FRACTURE IDENTIFIED SEVERE FIRST MTP JOINT DEGENERATIVE CHANGE OTHER FINDINGS DESCRIBED 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 DIVISION OF RADIOLOGY Provider, [facility] - 11/03/2022 * * *Final Report* [...] MTP JOINT DEGENERATIVE CHANGE OTHER FINDINGS DESCRIBED Lumber S[employer] Machine: [id number] Transcribe Date/Time: Nov 03 2022 9:04A Dictated by : TAZ MURILLO MD This examination was interpreted and the report reviewed and electronically signed by: TAZ MURILLO MD on Nov 03 2022 9:07AM EST [facility] XR Foot - right AP and Later al and obliqueOrdered By: [facility] Provider on 11-03-2022 [facility] XR Foot - right AP and Later al and obliqueon 10-31-2022 Radiology Study observation (narrative) [facility] Basophil percentageOrdered B y: José Miguel Frias on 10-18-2022 Bilirubin [Mass/Vol] 0.60 mg/dL 0.20-1.00 [facility] Comment on above: For patients on eltr ombopag therapy, use of Dimension [place] TBIL is not recommended. Chloride [Moles/Vol] 103 mmol/L 98-107 [facility] Cholesterol [Mass/Vol] 164 mg/dL <200 [facility] Comment on above: <200 mg/dL Desirable 200-240 mg/dL Borderline >240 mg/dL High Risk Glucose [Mass/Vol] 88 mg/dL 74-106 [facility] Potassium [Moles/Vol] 3.8 mmol/L 3.5-5.1 [facility] Protein [Mass/Vol] 6.9 g/dL 6.4-8.2 [facility] Sodium [Moles/Vol] 138 mmol/L 136-145 [facility] Triglyceride [Mass/Vol] 100 mg/dL <199 [facility] Comment on above: The drugs N-Acetylcy steine and Metamizole may falsely depress this assay.Serum Triglycerides Reference Interval Normal <150 mg/dL Borderline high 150 - 199 mg/dL High 200 - 499 mg/dL Very High > or = 500 mg/dL WBC (Bld) [#/Vol] 4.7 10*3/uL 4.4-11.0 [facility] Blood erythrocytes count (nu mber/volume)Ordered By: José Miguel Frias on 10-18-2022 RBC (Bld) [#/Vol] 4.51 10*6/uL 4.2-5.4 [facility] Blood hemoglobin measurement (mass/volume)Ordered By: José Miguel Frias on 10-18-2022 Hemoglobin (Bld) [Mass/Vol] 13.0 g/dL 12.0-15.0 [facility] Blood platelet mean volumeOr dered By: José Miguel Frias on 10-18-2022 Platelet mean volume (Bld) [Entitic vol] 9.5 fL 6.2-12.0 [facility] Determination of erythrocyte mean corpuscular volume (MCV)Ordered By: José Miguel Frias on 10-18-2022 MCV (RBC) [Entitic vol] 89.4 fL 81-99 [facility] Hematocrit Auto (Bld) [Volum e fraction]Ordered By: José Miguel Frias on 10-18-2022 Hematocrit (Bld) [Volume fraction] 40.3 % 37-47 [facility] - Chemistry and C hemistry - challengeOrdered By: José Miguel Frias on 10-18-2022 ALP [Catalytic activity/Vol] 75 U/L 45-117 [facility] ALT [Catalytic activity/Vol] 23 U/L 13-56 [facility] CO2 [Moles/Vol] 29.0 mmol/L 21.0-32.0 [facility] Globulin (S) [Mass/Vol] 3.7 g/dL 2.2-4.2 [facility] Urea nitrogen/Creatinine [Mass ratio] 40.1 mg/mg 10-20 [facility] - Hematology and Cell countsOrdered By: José Miguel Frias on 10-18-2022 Erythrocyte distribution width (RBC) [Entitic vol] 42.8 fL 35.1-43.9 [facility] Erythrocyte distribution width (RBC) [Ratio] 13.1 % 11.6-14.6 [facility] MCH (RBC) [Entitic mass] 28.8 pg 27.0-32.0 [facility] MCHC Auto (RBC) [Mass/Vol]Or dered By: José Miguel Frias on 10-18-2022 MCHC (RBC) [Mass/Vol] 32.3 g/dL 32-36 [facility] No Panel InformationOrdered By: José Miguel Frias on 10-18-2022 Estimated GFR (MDRD) Amer 68 mL/min >60 [facility] Comment on above: GFR Calc Estimated GFR (MDRD) Non-Af Amer 56 mL/min >60 [facility] Comment on above: Non- GFR Calc Thyroid Stimulating Hormone (TSH) 0.31 uIU/mL 0.358-3.74 [facility] Platelets bldOrdered By: Kris Frias on 10-18-2022 Platelets (Bld) [#/Vol] 202 10*3/uL 150-450 [facility] Serum or plasma albumin jalil urement (mass/volume)Ordered By: José Miguel Frias on 10-18-2022 Albumin [Mass/Vol] 3.2 g/dL 3.2-5.0 [facility] Serum or plasma albumin/glob ulin mass ratioOrdered By: José Miguel Frias on 10-18-2022 Albumin/Globulin [Mass ratio] 0.9 {ratio} 0.9-2.4 [facility] Serum or plasma calcium jalil urement (mass/volume)Ordered By: José Miguel Frias on 10-18-2022 Calcium [Mass/Vol] 9.2 mg/dL 8.5-10.1 [facility] Serum or plasma cholesterol in HDL measurement (mass/volume)Ordered By: José Miguel Frias on 10-18-2022 Cholesterol in HDL [Mass/Vol] 80 mg/dL >40 [facility] Comment on above: The drugs N-Acetylcy steine and Metamizole may falsely depress this assay. Reference Range HDL <40 mg/dL Low HDL Cholesterol HDL >or= 60 mg/dL High HDL Cholesterol Serum or plasma cholesterol in VLDL measurement (mass/volume)Ordered By: José Miguel Frias on 10-18-2022 Cholesterol in VLDL [Mass/Vol] 20 mg/dL 5-40 [facility] Serum or plasma creatinine m easurement (mass/volume)Ordered By: José Miguel Frias on 10-18-2022 Creatinine [Mass/Vol] 1.00 mg/dL 0.55-1.02 [facility] Comment on above: The validity of the calculated GFR & GFRAA in patients over 70 years has not been determined. Clinical correlation is essential. Serum or plasma low density lipoprotein (LDL) cholesterol measurement (mass/volume)Ordered By: José Miguel Frias on 10-18-2022 Cholesterol in LDL [Mass/Vol] 64 mg/dL 0-130 [facility] Serum or plasma urea nitroge n measurement (mass/volume)Ordered By: José Miguel Frias on 10-18-2022 Urea nitrogen [Mass/Vol] 40 mg/dL 7-18 [facility] Thin prep Papanicolaou smear with manual screeningOrdered By: José Miguel Frias on 10-18-2022 Thin prep Papanicolaou smear with manual screening 16 U/L 15-37 [facility] Thin prep Papanicolaou smear with manual screening 6 5-15 [facility] Culture, urineOrdered By: Vi mira Frias on 08-27-2022 Bacteria identified Cx Nom (U) Positive [facility] Basophil percentageOrdered B y: José Miguel Frias on 08-25-2022 Basophil percentage 0 SEEN /hpf 0-5 [facility] Bilirubin Test strip Ql (U)O rdered By: José Miguel Frias on 08-25-2022 Bilirubin Ql (U) Negative Negative [facility] Ketones Test strip Ql (U)Ord ered By: José Miguel Frias on 08-25-2022 Ketones Ql (U) Negative Negative [facility] Mucus LM Ql (Urine sed)Order ed By: José Miguel Frias on 08-25-2022 Mucus Ql (Urine sed) 0 SEEN /hpf [facility] Nitrite Test strip Ql (U)Ord ered By: José Miguel Frias on 08-25-2022 Nitrite Ql (U) Negative Negative [facility] Protein Test strip Ql (U)Ord ered By: José Miguel Frias on 08-25-2022 Protein Ql (U) Negative Negative [facility] Squamous epithelial cells de tection in urine sediment by light microscopyOrdered By: José Miguel Frias on 08-25-2022 Epithelial cells.squamous LM Ql (Urine sed) 0 SEEN /hpf 5-10 [facility] Urine blood detectionOrdered By: José Miguel Frias on 08-25-2022 RBC Ql (U) Negative Negative [facility] RBC Ql (U) 0 SEEN /hpf 0-5 [facility] Urine clarityOrdered By: Kris Frias on 08-25-2022 Clarity (U) Clear Clear [facility] Urine color determinationOrd ered By: José Miguel Frias on 08-25-2022 Color (U) Yellow Yellow [facility] Urine glucose detectionOrder ed By: José Miguel Frias on 08-25-2022 Glucose Ql (U) Normal mg/dl Normal [facility] Urine leukocyte esterase det ection by dipstickOrdered By: José Miguel Frias on 08-25-2022 Leukocyte esterase Test strip Ql (U) Negative Negative [facility] Urine pHOrdered By: José Miguel odell on 08-25-2022 pH (U) 6.0 [pH] 5.0 - 8.0 [facility] Urine sediment bacteria coun t by microscopy (number/high power field)Ordered By: José Miguel Frias on 08-25-2022 Bacteria LM.HPF (Urine sed) [#/Area] 0 /[HPF] None Seen [facility] Urine specific gravity measu rementOrdered By: José Miguel Frias on 08-25-2022 Specific gravity (U) [Rel density] 1.010 1.002-1.03 0 [facility] Urobilinogen Auto test strip Ql (U)Ordered By: José Miguel Frias on 08-25-2022 Urobilinogen Ql (U) Normal mg/dl Normal [facility] Qualitative QuantiFERON-TB g old in tube testOrdered By: José Miguel Frias on 07-28-2022 M. tuberculosis tuberculin stim IFN-g Ql (Bld) 0.66 IU/mL . [facility] Thin prep Papanicolaou smear with manual screeningOrdered By: José Miguel Frias on 07-28-2022 Thin prep Papanicolaou smear with manual screening Comment . [facility] Comment on above: QuantiFERON-TB Gold Plus [...] smear with manual screening 0.63 IU/mL . [facility] Thin prep Papanicolaou smear with manual screening 0.50 IU/mL . [facility] Thin prep Papanicolaou smear with manual screening > 10.00 IU/mL . [facility] Thin prep Papanicolaou smear with manual screening Negative Negative [facility] Comment on above: No response to [...] the productionof interferon gamma. Chemiluminescence immunoassaymethodologyPerformed at: [facility] [address] [id number] Director: Kingsley He PhD, Phone: [phone] Culture, urineOrdered By: Christine Frias on 07-20-2022 Bacteria identified Cx Nom (U) Positive [facility] Basophil percentageOrdered B y: José Miguel Frias on 07-18-2022 Basophil percentage 0 SEEN /hpf 0-5 [facility] Bilirubin Test strip Ql (U)O rdered By: José Miguel Frias on 07-18-2022 Bilirubin Ql (U) Negative Negative [facility] Ketones Test strip Ql (U)Ord ered By: José Miguel Frias on 07-18-2022 Ketones Ql (U) Negative Negative [facility] Mucus LM Ql (Urine sed)Order ed By: José Miguel Frias on 07-18-2022 Mucus Ql (Urine sed) 0 SEEN /hpf [facility] Nitrite Test strip Ql (U)Ord ered By: José Miguel Frias on 07-18-2022 Nitrite Ql (U) Negative Negative [facility] Protein Test strip Ql (U)Ord ered By: José Miguel Frias on 07-18-2022 Protein Ql (U) Negative Negative [facility] Squamous epithelial cells de tection in urine sediment by light microscopyOrdered By: José Miguel Frias on 07-18-2022 Epithelial cells.squamous LM Ql (Urine sed) 0-5 SEEN /hpf 5-10 [facility] Urine blood detectionOrdered By: José Miguel Frias on 07-18-2022 RBC Ql (U) Negative Negative [facility] RBC Ql (U) 0 SEEN /hpf 0-5 [facility] Urine clarityOrdered By: Kris Firas on 07-18-2022 Clarity (U) Sl. Cloudy Clear [facility] Urine color determinationOrd ered By: José Miguel Frias on 07-18-2022 Color (U) Yellow Yellow [facility] Urine glucose detectionOrder ed By: José Miguel Frias on 07-18-2022 Glucose Ql (U) Normal mg/dl Normal [facility] Urine leukocyte esterase det ection by dipstickOrdered By: José Miguel Frias on 07-18-2022 Leukocyte esterase Test strip Ql (U) Negative Negative [facility] Urine pHOrdered By: José Miguel odell on 07-18-2022 pH (U) 6.5 [pH] 5.0 - 8.0 [facility] Urine sediment bacteria coun t by microscopy (number/high power field)Ordered By: José Miguel Frias on 07-18-2022 Bacteria LM.HPF (Urine sed) [#/Area] 0 /[HPF] None Seen [facility] Urine specific gravity measu rementOrdered By: José Miguel Frias on 07-18-2022 Specific gravity (U) [Rel density] 1.015 1.002-1.03 0 [facility] Urobilinogen Auto test strip Ql (U)Ordered By: José Miguel Frias on 07-18-2022 Urobilinogen Ql (U) Normal mg/dl Normal [facility] Basophil percentageOrdered B y: Mary Rob on 05-17-2022 Bilirubin [Mass/Vol] 0.50 mg/dL 0.20-1.00 [facility] Comment on above: For patients on eltr ombopag therapy, use of Dimension [place] TBIL is not recommended. Chloride [Moles/Vol] 105 mmol/L 98-107 [facility] Cholesterol [Mass/Vol] 137 mg/dL <200 [facility] Comment on above: <200 mg/dL Desirable 200-240 mg/dL Borderline >240 mg/dL High Risk Glucose [Mass/Vol] 81 mg/dL 74-106 [facility] Potassium [Moles/Vol] 3.8 mmol/L 3.5-5.1 [facility] Protein [Mass/Vol] 5.6 g/dL 6.4-8.2 [facility] Sodium [Moles/Vol] 140 mmol/L 136-145 [facility] Triglyceride [Mass/Vol] 75 mg/dL <199 [facility] Comment on above: The drugs N-Acetylcy steine and Metamizole may falsely depress this assay.Serum Triglycerides Reference Interval Normal <150 mg/dL Borderline high 150 - 199 mg/dL High 200 - 499 mg/dL Very High > or = 500 mg/dL WBC (Bld) [#/Vol] 5.5 10*3/uL 4.4-11.0 [facility] Blood erythrocytes count (nu mber/volume)Ordered By: Mary Rob on 05-17-2022 RBC (Bld) [#/Vol] 4.68 10*6/uL 4.2-5.4 [facility] Blood hemoglobin measurement (mass/volume)Ordered By: Mary Rob on 05-17-2022 Hemoglobin (Bld) [Mass/Vol] 13.4 g/dL 12.0-15.0 [facility] Blood platelet mean volumeOr dered By: Mary Rob on 05-17-2022 Platelet mean volume (Bld) [Entitic vol] 10.7 fL 6.2-12.0 [facility] Determination of erythrocyte mean corpuscular volume (MCV)Ordered By: Mary Rob on 05-17-2022 MCV (RBC) [Entitic vol] 90.0 fL 81-99 [facility] Hematocrit Auto (Bld) [Volum e fraction]Ordered By: Mary Rob on 05-17-2022 Hematocrit (Bld) [Volume fraction] 42.1 % 37-47 [facility] Laboratory - Chemistry and C hemistry - challengeOrdered By: Mary Rob on 05-17-2022 ALP [Catalytic activity/Vol] 75 U/L 45-117 [facility] ALT [Catalytic activity/Vol] 22 U/L 13-56 [facility] CO2 [Moles/Vol] 29.0 mmol/L 21.0-32.0 [facility] Globulin (S) [Mass/Vol] 3.0 g/dL 2.2-4.2 [facility] Urea nitrogen/Creatinine [Mass ratio] 38.7 mg/mg 10-20 [facility] - Hematology and Cell countsOrdered By: Mary Rob on 05-17-2022 Erythrocyte distribution width (RBC) [Entitic vol] 44.4 fL 35.1-43.9 [facility] Erythrocyte distribution width (RBC) [Ratio] 13.5 % 11.6-14.6 [facility] MCH (RBC) [Entitic mass] 28.6 pg 27.0-32.0 [facility] MCHC Auto (RBC) [Mass/Vol]Or dered By: Mary Rob on 05-17-2022 MCHC (RBC) [Mass/Vol] 31.8 g/dL 32-36 [facility] No Panel InformationOrdered By: Mary Rob on 05-17-2022 Estimated GFR (MDRD) Amer 103 mL/min >60 [facility] Comment on above: GFR Calc Estimated GFR (MDRD) Non-Af Amer 85 mL/min >60 [facility] Comment on above: Non- GFR Calc Thyroid Stimulating Hormone (TSH) 0.78 uIU/mL 0.358-3.74 [facility] Platelets bldOrdered By: Mary Rob on 05-17-2022 Platelets (Bld) [#/Vol] 185 10*3/uL 150-450 [facility] Serum or plasma albumin jalil urement (mass/volume)Ordered By: Mary Rob on 05-17-2022 Albumin [Mass/Vol] 2.6 g/dL 3.2-5.0 [facility] Serum or plasma albumin/glob ulin mass ratioOrdered By: Mary Rob on 05-17-2022 Albumin/Globulin [Mass ratio] 0.9 {ratio} 0.9-2.4 [facility] Serum or plasma calcium jalil urement (mass/volume)Ordered By: Mary Rob on 05-17-2022 Calcium [Mass/Vol] 8.4 mg/dL 8.5-10.1 [facility] Serum or plasma cholesterol in HDL measurement (mass/volume)Ordered By: Mary Rob on 05-17-2022 Cholesterol in HDL [Mass/Vol] 67 mg/dL >40 [facility] Comment on above: The drugs N-Acetylcy steine and Metamizole may falsely depress this assay. Reference Range HDL <40 mg/dL Low HDL Cholesterol HDL >or= 60 mg/dL High HDL Cholesterol Serum or plasma cholesterol in VLDL measurement (mass/volume)Ordered By: Mary Rob on 05-17-2022 Cholesterol in VLDL [Mass/Vol] 15 mg/dL 5-40 [facility] Serum or plasma creatinine m easurement (mass/volume)Ordered By: Mary Rob on 05-17-2022 Creatinine [Mass/Vol] 0.70 mg/dL 0.55-1.02 [facility] Comment on above: The validity of the calculated GFR & GFRAA in patients over 70 years has not been determined. Clinical correlation is essential. Serum or plasma low density lipoprotein (LDL) cholesterol measurement (mass/volume)Ordered By: Mary Rob on 05-17-2022 Cholesterol in LDL [Mass/Vol] 55 mg/dL 0-130 [facility] Serum or plasma urea nitroge n measurement (mass/volume)Ordered By: Mary Rob on 05-17-2022 Urea nitrogen [Mass/Vol] 27 mg/dL 7-18 [facility] Thin prep Papanicolaou smear with manual screeningOrdered By: Mary Rob on 05-17-2022 Thin prep Papanicolaou smear with manual screening 13 U/L 15-37 [facility] Thin prep Papanicolaou smear with manual screening 6 5-15 [facility] Basophil percentageOrdered B y: Dr. Lo on 04-27-2022 Basophil percentage 0-5 SEEN /hpf 0-5 [facility] Bilirubin Test strip Ql (U)O rdered By: Dr. Lo on 04-27-2022 Bilirubin Ql (U) Negative Negative [facility] Ketones Test strip Ql (U)Ord ered By: Dr. Lo on 04-27-2022 Ketones Ql (U) 5 mg/dl Negative [facility] Laboratory - Drug toxicology Ordered By: Dr. Lo on 04-27-2022 Amphetamines Ql (U) Negative <1000 ng/mL [facility] Benzodiazepines Ql (U) Negative < 200 ng/mL [facility] Cannabinoids Screen Ql (U) Negative < 50 ng/mL [facility] Cocaine Ql (U) Negative < 300 ng/mL [facility] Opiates Ql (U) Negative < 300 ng/mL [facility] Mucus LM Ql (Urine sed)Order ed By: Dr. Lo on 04-27-2022 Mucus Ql (Urine sed) 2+ /hpf [facility] Nitrite Test strip Ql (U)Ord ered By: Dr. Lo on 04-27-2022 Nitrite Ql (U) Negative Negative [facility] No Panel InformationOrdered By: Dr. Lo on 04-27-2022 MDMA (Ecstasy) Screen Negative < 500 ng/mL [facility] Urine Barbiturates Screen Negative < 200 ng/mL [facility] Urine Drug Screen Comment [facility] Comment on above: CONFIRMATORY TESTING FOR [...] Urine Methadone Screen Negative < 300 ng/mL [facility] Protein Test strip Ql (U)Ord ered By: Dr. Lo on 04-27-2022 Protein Ql (U) 15 mg/dl Negative [facility] Squamous epithelial cells de tection in urine sediment by light microscopyOrdered By: Dr. Lo on 04-27-2022 Epithelial cells.squamous LM Ql (Urine sed) 0 SEEN /hpf 5-10 [facility] Urine blood detectionOrdered By: Dr. Lo on 04-27-2022 RBC Ql (U) Negative Negative [facility] RBC Ql (U) 0 SEEN /hpf 0-5 [facility] Urine clarityOrdered By: Dr. Lo on 04-27-2022 Clarity (U) Clear Clear [facility] Urine color determinationOrd ered By: Dr. Lo on 04-27-2022 Color (U) Yellow Yellow [facility] Urine glucose detectionOrder ed By: Dr. Lo on 04-27-2022 Glucose Ql (U) Normal mg/dl Normal [facility] Urine leukocyte esterase det ection by dipstickOrdered By: Dr. Lo on 04-27-2022 Leukocyte esterase Test strip Ql (U) 25 /ul Negative [facility] Urine pHOrdered By: Dr. Claudia jane on 04-27-2022 pH (U) 6.5 [pH] 5.0 - 8.0 [facility] Urine phencyclidine (PCP) de tectionOrdered By: Dr. Lo on 04-27-2022 Phencyclidine Ql (U) Negative < 25 ng/mL [facility] Urine sediment bacteria coun t by microscopy (number/high power field)Ordered By: Dr. Lo on 04-27-2022 Bacteria LM.HPF (Urine sed) [#/Area] 1 /[HPF] None Seen [facility] Urine specific gravity measu rementOrdered By: Dr. Lo on 04-27-2022 Specific gravity (U) [Rel density] 1.020 1.002-1.03 0 [facility] Urobilinogen Auto test strip Ql (U)Ordered By: Dr. Lo on 04-27-2022 Urobilinogen Ql (U) 1 mg/dl Normal [facility] Absolute lymphocyte countOrd ered By: Dr. Lo on 04-26-2022 Lymphocytes Auto (Unsp spec) [#/Vol] 1.37 10*3/uL 0.83-4.51 [facility] Basophil percentageOrdered B y: Dr. Lo on 04-26-2022 Basophils/100 WBC (Bld) 0.5 % 0-1 [facility] Bilirubin [Mass/Vol] 1.00 mg/dL 0.20-1.00 [facility] Comment on above: For patients on eltr ombopag therapy, use of Dimension [place] TBIL is not recommended. Chloride [Moles/Vol] 105 mmol/L 98-107 [facility] Eosinophils/100 WBC (Bld) 1.2 % 0-5 [facility] Glucose [Mass/Vol] 104 mg/dL 74-106 [facility] Comment on above: Fasting Glucose resu lt from 100 to 125 mg/dL suggests IMPAIRED HOMEOSTASIS per A.D.A. criteria. Neutrophils (Bld) [#/Vol] 3.5 10*3/uL 2.0-7.7 [facility] Neutrophils/100 WBC (Bld) 62.0 % 47-70 [facility] Potassium [Moles/Vol] 3.0 mmol/L 3.5-5.1 [facility] Protein [Mass/Vol] 6.4 g/dL 6.4-8.2 [facility] Sodium [Moles/Vol] 139 mmol/L 136-145 [facility] WBC (Bld) [#/Vol] 5.7 10*3/uL 4.4-11.0 [facility] Blood erythrocytes count (nu mber/volume)Ordered By: Dr. Lo on 04-26-2022 RBC (Bld) [#/Vol] 5.09 10*6/uL 4.2-5.4 [facility] Blood hemoglobin measurement (mass/volume)Ordered By: Dr. oL on 04-26-2022 Hemoglobin (Bld) [Mass/Vol] 14.6 g/dL 12.0-15.0 [facility] Blood lymphocytes/100 leukoc ytesOrdered By: Dr. Lo on 04-26-2022 Lymphocytes/100 WBC (Bld) 24.1 % 19-41 [facility] Blood monocytes/100 leukocyt esOrdered By: Dr. Lo on 04-26-2022 Monocytes/100 WBC (Bld) 12.0 % 0-10 [facility] Blood platelet mean volumeOr dered By: Dr. Lo on 04-26-2022 Platelet mean volume (Bld) [Entitic vol] 10.3 fL 6.2-12.0 [facility] COVID-19 virus antigen assay Ordered By: Dr. Lo on 04-26-2022 SARS-CoV-2 (COVID-19) Ag IA.rapid Ql (Resp) [facility] Determination of erythrocyte mean corpuscular volume (MCV)Ordered By: Dr. Lo on 04-26-2022 MCV (RBC) [Entitic vol] 88.2 fL 81-99 [facility] Hematocrit Auto (Bld) [Volum e fraction]Ordered By: Dr. Lo on 04-26-2022 Hematocrit (Bld) [Volume fraction] 44.9 % 37-47 [facility] Laboratory - Chemistry and C hemistry - challengeOrdered By: Dr. Lo on 04-26-2022 ALP [Catalytic activity/Vol] 133 U/L 45-117 [facility] ALT [Catalytic activity/Vol] 16 U/L 13-56 [facility] CO2 [Moles/Vol] 25.0 mmol/L 21.0-32.0 [facility] Globulin (S) [Mass/Vol] 3.2 g/dL 2.2-4.2 [facility] Urea nitrogen/Creatinine [Mass ratio] 20.7 mg/mg 10-20 [facility] - Hematology and Cell countsOrdered By: Dr. Lo on 04-26-2022 Erythrocyte distribution width (RBC) [Entitic vol] 42.0 fL 35.1-43.9 [facility] Erythrocyte distribution width (RBC) [Ratio] 13.0 % 11.6-14.6 [facility] Immature granulocytes/100 WBC (Bld) 0.200 % 0.0-0.9 [facility] Comment on above: IG% - Immature Granu locytes (promyelocytes, myelocytes and metamyelocytes) > 1% indicates that a LEFT SHIFT is Present. MCH (RBC) [Entitic mass] 28.7 pg 27.0-32.0 [facility] Nucleated RBC/100 WBC (Bld) [Ratio] 0 % 0-5 [facility] MCHC Auto (RBC) [Mass/Vol]Or dered By: Dr. Lo on 04-26-2022 MCHC (RBC) [Mass/Vol] 32.5 g/dL 32-36 [facility] No Panel InformationOrdered By: Dr. Lo on 04-26-2022 Estimated Creatinine Clearance Calc 48.56 ml/min [facility] Estimated GFR (MDRD) Amer 80 mL/min >60 [facility] Comment on above: GFR Calc Estimated GFR (MDRD) Non-Af Amer 66 mL/min >60 [facility] Comment on above: Non- GFR Calc Ethyl Alcohol Level < 3.0 mg/dL [facility] Comment on above: The serum:whole bloo d ethanol ratio is approximately 1.14and varies slightly with hematocrit. Medical Alcohol reference interval and critical value innon-tolerant individuals; 50 - 100 Impairment 100 Intoxication 100 - 250 Severe Poisoning 250 - 400 Deep/possible fatal coma Platelets bldOrdered By: Dr. Lo on 04-26-2022 Platelets (Bld) [#/Vol] 229 10*3/uL 150-450 [facility] Serum or plasma albumin jalil urement (mass/volume)Ordered By: Dr. Lo on 04-26-2022 Albumin [Mass/Vol] 3.2 g/dL 3.2-5.0 [facility] Serum or plasma albumin/glob ulin mass ratioOrdered By: Dr. Lo on 04-26-2022 Albumin/Globulin [Mass ratio] 1.0 {ratio} 0.9-2.4 [facility] Serum or plasma calcium jalil urement (mass/volume)Ordered By: Dr. Lo on 04-26-2022 Calcium [Mass/Vol] 8.7 mg/dL 8.5-10.1 [facility] Serum or plasma creatinine m easurement (mass/volume)Ordered By: Dr. Lo on 04-26-2022 Creatinine [Mass/Vol] 0.87 mg/dL 0.55-1.02 [facility] Comment on above: The validity of the calculated GFR & GFRAA in patients over 70 years has not been determined. Clinical correlation is essential. Serum or plasma urea nitroge n measurement (mass/volume)Ordered By: Dr. Lo on 04-26-2022 Urea nitrogen [Mass/Vol] 18 mg/dL 7-18 [facility] Thin prep Papanicolaou smear with manual screeningOrdered By: Dr. Lo on 04-26-2022 Thin prep Papanicolaou smear with manual screening 14 U/L 15-37 [facility] Thin prep Papanicolaou smear with manual screening 9 5-15 [facility] Culture, urineOrdered By: Dr Selena Herrera on 03-27-2022 Bacteria identified Cx Nom (U) Mixed Gram Pos & Gram Neg Org [facility] Absolute lymphocyte countOrd ered By: Dr. Herrera on 03-26-2022 Lymphocytes Auto (Unsp spec) [#/Vol] 0.97 10*3/uL 0.83-4.51 [facility] Basophil percentageOrdered B y: Dr. Herrera on 03-26-2022 Basophil percentage 0 SEEN /hpf 0-5 [facility] Basophils/100 WBC (Bld) 0.3 % 0-1 [facility] Chloride [Moles/Vol] 109 mmol/L 98-107 [facility] Eosinophils/100 WBC (Bld) 0.8 % 0-5 [facility] Glucose [Mass/Vol] 107 mg/dL 74-106 [facility] Comment on above: Fasting Glucose resu lt from 100 to 125 mg/dL suggests IMPAIRED HOMEOSTASIS per A.D.A. criteria. Lactate [Moles/Vol] 1.4 mmol/L 0.4-2.0 [facility] Neutrophils (Bld) [#/Vol] 4.7 10*3/uL 2.0-7.7 [facility] Neutrophils/100 WBC (Bld) 73.0 % 47-70 [facility] Potassium [Moles/Vol] 3.2 mmol/L 3.5-5.1 [facility] Sodium [Moles/Vol] 142 mmol/L 136-145 [facility] WBC (Bld) [#/Vol] 6.4 10*3/uL 4.4-11.0 [facility] Bilirubin Test strip Ql (U)O rdered By: Dr. Herrera on 03-26-2022 Bilirubin Ql (U) Negative Negative [facility] Blood erythrocytes count (nu mber/volume)Ordered By: Dr. Herrera on 03-26-2022 RBC (Bld) [#/Vol] 4.85 10*6/uL 4.2-5.4 [facility] Blood hemoglobin measurement (mass/volume)Ordered By: Dr. Herrera on 03-26-2022 Hemoglobin (Bld) [Mass/Vol] 14.4 g/dL 12.0-15.0 [facility] Blood lymphocytes/100 leukoc ytesOrdered By: Dr. Herrera on 03-26-2022 Lymphocytes/100 WBC (Bld) 15.2 % 19-41 [facility] Blood monocytes/100 leukocyt esOrdered By: Dr. Herrera on 03-26-2022 Monocytes/100 WBC (Bld) 10.4 % 0-10 [facility] Blood platelet mean volumeOr dered By: Dr. Herrera on 03-26-2022 Platelet mean volume (Bld) [Entitic vol] 10.6 fL 6.2-12.0 [facility] Determination of erythrocyte mean corpuscular volume (MCV)Ordered By: Dr. Herrera on 03-26-2022 MCV (RBC) [Entitic vol] 90.5 fL 81-99 [facility] Hematocrit Auto (Bld) [Volum e fraction]Ordered By: Dr. Herrera on 03-26-2022 Hematocrit (Bld) [Volume fraction] 43.9 % 37-47 [facility] Ketones Test strip Ql (U)Ord ered By: Dr. Herrera on 03-26-2022 Ketones Ql (U) 5 mg/dl Negative [facility] Laboratory - Chemistry and C hemistry - challengeOrdered By: Dr. Herrera on 03-26-2022 CO2 [Moles/Vol] 26.0 mmol/L 21.0-32.0 [facility] Urea nitrogen/Creatinine [Mass ratio] 36.3 mg/mg 10-20 [facility] - Hematology and Cell countsOrdered By: Dr. Herrera on 03-26-2022 Erythrocyte distribution width (RBC) [Entitic vol] 43.6 fL 35.1-43.9 [facility] Erythrocyte distribution width (RBC) [Ratio] 13.2 % 11.6-14.6 [facility] Immature granulocytes/100 WBC (Bld) 0.300 % 0.0-0.9 [facility] Comment on above: IG% - Immature Granu locytes (promyelocytes, myelocytes and metamyelocytes) > 1% indicates that a LEFT SHIFT is Present. MCH (RBC) [Entitic mass] 29.7 pg 27.0-32.0 [facility] Nucleated RBC/100 WBC (Bld) [Ratio] 0 % 0-5 [facility] MCHC Auto (RBC) [Mass/Vol]Or dered By: Dr. Herrera on 03-26-2022 MCHC (RBC) [Mass/Vol] 32.8 g/dL 32-36 [facility] Mucus LM Ql (Urine sed)Order ed By: Dr. Herrera on 03-26-2022 Mucus Ql (Urine sed) 0 SEEN /hpf [facility] Nitrite Test strip Ql (U)Ord ered By: Dr. Herrera on 03-26-2022 Nitrite Ql (U) Negative Negative [facility] No Panel InformationOrdered By: Dr. Herrera on 03-26-2022 Estimated Creatinine Clearance Calc 42.25 ml/min [facility] Estimated GFR (MDRD) Amer 100 mL/min >60 [facility] Comment on above: GFR Calc Estimated GFR (MDRD) Non-Af Amer 82 mL/min >60 [facility] Comment on above: Non- GFR Calc Troponin I High Sensitivity 27 pg/mL 3.0-54.0 [facility] Comment on above: Please Note: New Madiha t Units and Gender Specific Reference Ranges. For more information see Policy Stat Procedure [place] High Sensitivity Troponin (TNIH) and attachments. Platelets bldOrdered By: Dr. Herrera on 03-26-2022 Platelets (Bld) [#/Vol] 218 10*3/uL 150-450 [facility] Protein Test strip Ql (U)Ord ered By: Dr. Herrera on 03-26-2022 Protein Ql (U) Negative Negative [facility] Serum or plasma calcium jalil urement (mass/volume)Ordered By: Dr. Herrera on 03-26-2022 Calcium [Mass/Vol] 9.3 mg/dL 8.5-10.1 [facility] Serum or plasma creatinine m easurement (mass/volume)Ordered By: Dr. Herrera on 03-26-2022 Creatinine [Mass/Vol] 0.72 mg/dL 0.55-1.02 [facility] Comment on above: The validity of the calculated GFR & GFRAA in patients over 70 years has not been determined. Clinical correlation is essential. Serum or plasma urea nitroge n measurement (mass/volume)Ordered By: Dr. Herrera on 03-26-2022 Urea nitrogen [Mass/Vol] 26 mg/dL 7-18 [facility] Squamous epithelial cells de tection in urine sediment by light microscopyOrdered By: Dr. Herrera on 03-26-2022 Epithelial cells.squamous LM Ql (Urine sed) 0-5 SEEN /hpf 5-10 [facility] Thin prep Papanicolaou smear with manual screeningOrdered By: Dr. Herrera on 03-26-2022 Thin prep Papanicolaou smear with manual screening 7 5-15 [facility] Urine blood detectionOrdered By: Dr. Herrera on 03-26-2022 RBC Ql (U) 10 /ul Negative [facility] RBC Ql (U) 0 SEEN /hpf 0-5 [facility] Urine clarityOrdered By: Dr. Herrera on 03-26-2022 Clarity (U) Clear Clear [facility] Urine color determinationOrd ered By: Dr. Herrera on 03-26-2022 Color (U) Yellow Yellow [facility] Urine glucose detectionOrder ed By: Dr. Herrera on 03-26-2022 Glucose Ql (U) Normal mg/dl Normal [facility] Urine leukocyte esterase det ection by dipstickOrdered By: Dr. Herrera on 03-26-2022 Leukocyte esterase Test strip Ql (U) Negative Negative [facility] Urine pHOrdered By: Dr. Cindy purvis on 03-26-2022 pH (U) 6.5 [pH] 5.0 - 8.0 [facility] Urine sediment bacteria coun t by microscopy (number/high power field)Ordered By: Dr. Herrera on 03-26-2022 Bacteria LM.HPF (Urine sed) [#/Area] 0 /[HPF] None Seen [facility] Urine specific gravity measu rementOrdered By: Dr. Herrera on 03-26-2022 Specific gravity (U) [Rel density] 1.020 1.002-1.03 0 [facility] Urobilinogen Auto test strip Ql (U)Ordered By: Dr. Herrera on 03-26-2022 Urobilinogen Ql (U) Normal mg/dl Normal [facility] Office Visiton 02-22-2017 Fall risk assessment No Invalid Interpretation Code [facility] Work Phone: [phone] Protein mass conc Done Invalid Interpretation Code [facility] Work Phone: [phone] Tobacco smoking status NHIS Never smoker Invalid Interpretation Code [facility] Work Phone: [phone] Clinical Lists Update: [facility] 12-30-2015 Left ventricular Ejection fraction 55 % Invalid Interpretation Code [facility] Work Phone: [phone] Clinical Lists Update: [facility]2015 Albumin mass conc 3.9 g/dL Invalid Interpretation Code [facility] Work Phone: [phone] ALP enzyme act/vol (Bld) 80 U/L Invalid Interpretation Code [facility] Work Phone: [phone] ALT enzyme act/vol 14 U/L Invalid Interpretation Code [facility] Work Phone: [phone] Anion gap 4 molar conc 12 Invalid Interpretation Code [facility] Work Phone: [phone] AST enzyme act/vol 22 U/L Invalid Interpretation Code [facility] Work Phone: [phone] Bilirubin mass conc 0.8 mg/dL Invalid Interpretation Code [facility] Work Phone: [phone] Calcium mass conc 9.1 mg/dL Invalid Interpretation Code [facility] Work Phone: [phone] Chloride molar conc 100 mmol/L Invalid Interpretation Code [facility] Work Phone: [phone] Cholesterol in HDL mass conc 82 mg/dL Invalid Interpretation Code [facility] Work Phone: [phone] Cholesterol in LDL mass conc 64 mg/dL Invalid Interpretation Code [facility] Work Phone: [phone] Cholesterol in LDL/Cholesterol in HDL mass ratio 0.78 Invalid Interpretation Code [facility] Work Phone: [phone] Cholesterol mass conc 160 mg/dL Invalid Interpretation Code [facility] Work Phone: [phone] Cholesterol.total/Cho lesterol in HDL mass ratio 1.95 {ratio} Invalid Interpretation Code [facility] Work Phone: [phone] CO2 ppres (BldV) 30 mmol/L Invalid Interpretation Code [facility] Work Phone: [phone] Creatinine mass conc 0.66 mg/dL Low [facility] Work Phone: [phone] Glucose mass conc 90 mg/dL Invalid Interpretation Code [facility] Work Phone: [phone] Lipoprotein.pre-beta mass conc 14 mg/dL Invalid Interpretation Code [facility] Work Phone: [phone] Potassium molar conc 4.0 mmol/L Invalid Interpretation Code [facility] Work Phone: [phone] Protein mass conc 6.9 g/dL Invalid Interpretation Code [facility] Work Phone: [phone] Sodium molar conc 142 mmol/L Invalid Interpretation Code [facility] Work Phone: [phone] Thyrotropin Qn 0.158 u[iU]/mL Low [facility] Work Phone: [phone] Triglyceride mass conc 69 mg/dL Invalid Interpretation Code [facility] Work Phone: [phone] Urea nitrogen mass conc 20 mg/dL Invalid Interpretation Code [facility] Work Phone: [phone] Clinical Lists Update: [facility] machine learning intern 04-20-2015 Bilirubin.direct mass conc mg/dL Invalid Interpretation Code [facility] Work Phone: [phone] Office [facility] 01-04-2015 cardiac risk group B Invalid Interpretation Code [facility] Work Phone: [phone] General cardiovascular disease 10Y risk [#] Una'Rafat 3 % Invalid Interpretation Code [facility] Work Phone: [phone] Clinical Lists Update: [facility] machine learning intern 10-08-2014 Erythrocyte distribution width Auto Ratio (RBC) 13.2 % Invalid Interpretation Code [facility] Work Phone: [phone] Hematocrit Auto Volume Fraction (Bld) 41.4 % Invalid Interpretation Code [facility] Work Phone: [phone] Hemoglobin mass conc (Bld) 12.9 g/dL Invalid Interpretation Code [employer] [facility] Work Phone: [phone] MCH Auto Entitic mass (RBC) 29.2 pg Invalid Interpretation Code [employer] [facility] Work Phone: [phone] MCHC Auto mass conc (RBC) 31.2 g/dL Invalid Interpretation Code [facility] Phone: [phone] MCV Auto Entitic volume (RBC) 93.7 fL Invalid Interpretation Code [employer] [facility] Work Phone: [phone] Platelet mean volume Jhonny-Harjit Entitic volume (Bld) 10.6 fL Invalid Interpretation Code [facility] Phone: [phone] Platelets Auto #/vol (Bld) 191 10*3/mm3 Invalid Interpretation Code [facility] Work Phone: [phone] RBC Auto #/vol (Bld) 4.42 10*6/uL Invalid Interpretation Code [employer] [facility] Work Phone: [phone] WBC Auto #/vol (Bld) 4.34 10*3/uL Invalid Interpretation Code [facility] Phone: [phone] Lab Report: [id number] 14 ALK 77 U/L Normal 45-117 [employer] [facility] Work Phone: [facility] 10-02-2013 Protein mass conc no Invalid Interpretation Code [employer] Work Phone: [phone] Replaced Document: [facility] CG Observationson 10-02-2013 EKG QRS axis -45 deg Invalid Interpretation Code [facility] Work Phone: [phone] Interpretation Sinus Bradycardia - frequent ectopic ventricular beat s # VECs = 2-Left axis -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 -Nonspecific ST depression -Nondiagnostic. ABNORMAL Invalid Interpretation Code [facility] Work Phone: [phone] P [place] 58 deg Invalid Interpretation Code [facility] Work Phone: [phone] DE Interval 186 ms Invalid Interpretation Code [facility] Work Phone: [phone] QRS Duration 118 ms Invalid Interpretation Code [facility] Work Phone: [phone] QT Interval new path ms Invalid Interpretation Code [facility] Work Phone: [phone] [place] -1 deg Invalid Interpretation Code [facility] Work Phone: [phone] Culture, urine Bacteria identified Cx Nom (U) Mixed Gram Pos & Gram Neg Org [facility] Work Phone: Vital Signs Date Time Vital Sign Value Performing Clinician Facility 10-06-2024 16:48-0400 Body height 172.[address] José Miguel Frias MD Work Phone: [facility] 10-06-2024 16:48-0400 Body temperature 98.1 [degF] Dr. José Miguel Frias MD Work Phone: [facility] 10-06-2024 16:48-0400 Diastolic blood pressure 99 mm[Hg] Dr. José Miguel Frias MD Work Phone: [facility] 10-06-2024 16:48-0400 Heart rate 77 /min Dr. José Miguel Frias MD Work Phone: [facility] 10-06-2024 16:48-0400 Respiratory rate 19 /min Dr. José Miguel Frias MD Work Phone: [facility] 10-06-2024 16:48-0400 SaO2% (BldA) [Mass fraction] 98 % Dr. José Miguel Frias MD Work Phone: [facility] 10-06-2024 16:48-0400 Systolic blood pressure 172 mm[Hg] Dr. José Miguel Frias MD Work Phone: [phone])563-759061 [place] [address] 02-25-2023 13:22-0400 Body temperature 98 [degF] Dr. José Miguel Frias Work Phone: [phone])[phone] [place] [address] 02-25-2023 13:22-0400 Diastolic blood pressure 69 mm[Hg] Dr. José Miguel Frias Work Phone: 4([phone])589-602561 [place] [address] 02-25-2023 13:22-0400 Heart rate 76 /min Dr. José Miguel Frias Work Phone: [phone])630-909761 [place] [address] 02-25-2023 13:22-0400 Respiratory rate 18 /min Dr. José Miguel Frias Work Phone: 2(988)523-068540 [place] [address] 02-25-2023 13:22-0400 SaO2% (BldA) [Mass fraction] 96 % Dr. José Miguel Frias Work Phone: 1(509)[phone] [place] [address] 02-25-2023 13:22-0400 Systolic blood pressure 116 mm[Hg] Dr. José Miguel Frias Work Phone: 8(813)697-164461 [place] [address] 02-24-2023 13:31-0400 Body height 172.[address] José Miguel Frias Work Phone: 8(406)032-272261 [place] [address] 02-24-2023 13:31-0400 Body weight 80.[address] José Miguel Frias Work Phone: 4(771)[phone] [place] [address] 02-23-2023 23:37-0400 Body mass index (BMI) [Ratio] 26.9 kg/m2 Dr. José Miguel Frias Work Phone: [facility] 12-22-2022 15:09-0400 Body weight 78.02 kg José Miguel Frias MD Work Phone: [facility] 12-22-2022 15:09-0400 Diastolic blood pressure 84 mm[Hg] José Miguel Frias MD Work Phone: [facility] 12-22-2022 15:09-0400 Heart rate 62 /min José Miguel Frias MD Work Phone: [facility] 12-22-2022 15:09-0400 Respiratory rate 16 /min José Miguel Frias MD Work Phone: [facility] 12-22-2022 15:09-0400 Systolic blood pressure 122 mm[Hg] José Miguel Frias MD Work Phone: [facility] 10-31-2022 15:50-0400 Body weight 82.56 kg Nedra Cheema PROCESS IMPROVEMENT MANAGER.MACHINE SPECIALIST Work Phone: [facility] 10-31-2022 15:50-0400 Diastolic blood pressure 62 mm[Hg] Nedra Cheema PROCESS IMPROVEMENT MANAGER.MACHINE SPECIALIST Work Phone: [facility] 10-31-2022 15:50-0400 Heart rate 72 /min Nedra Cheema PROCESS IMPROVEMENT MANAGER.MACHINE SPECIALIST Work Phone: [facility] 10-31-2022 15:50-0400 Respiratory rate 16 /min Nedra Cheema PROCESS IMPROVEMENT MANAGER.MACHINE SPECIALIST Work Phone: [facility] 10-31-2022 15:50-0400 Systolic blood pressure 132 mm[Hg] Nedra Cheema PROCESS IMPROVEMENT MANAGER.MACHINE SPECIALIST Work Phone: [facility] 09-15-2022 16:33-0400 Body temperature 97.81 [degF] José Miguel Frias MD Work Phone: [facility] 09-15-2022 16:33-0400 Body weight 78.47 kg José Miguel Frias MD Work Phone: [facility] 09-15-2022 16:33-0400 Diastolic blood pressure 70 mm[Hg] José Miguel Frias MD Work Phone: [facility] 09-15-2022 16:33-0400 Heart rate 64 /min José Miguel Frias MD Work Phone: [facility] 09-15-2022 16:33-0400 Respiratory rate 14 /min José Miguel Frias MD Work Phone: [facility] 09-15-2022 16:33-0400 SaO2% (BldA) [Mass fraction] 99 % José Miguel Frias MD Work Phone: [facility] 09-15-2022 16:33-0400 Systolic blood pressure 132 mm[Hg] José Miguel Frias MD Work Phone: [facility] 09-04-2022 13:41-0400 Body weight 78.93 kg Mckenzie Older PROCESS IMPROVEMENT MANAGER.AIR DIRECTOR Work Phone: [facility] 09-04-2022 13:41-0400 Diastolic blood pressure 68 mm[Hg] Mckenzie Older PROCESS IMPROVEMENT MANAGER.AIR DIRECTOR Work Phone: [facility] 09-04-2022 13:41-0400 Heart rate 60 /min Mckenzie Older PROCESS IMPROVEMENT MANAGER.AIR DIRECTOR Work Phone: [facility] 09-04-2022 13:41-0400 Respiratory rate 12 /min Mckenzie Older PROCESS IMPROVEMENT MANAGER.AIR DIRECTOR Work Phone: [facility] 09-04-2022 13:41-0400 Systolic blood pressure 138 mm[Hg] Mckenzie Older PROCESS IMPROVEMENT MANAGER.AIR DIRECTOR Work Phone: [facility] 08-03-2022 14:08-0400 Body weight 77.47 kg José Miguel Frias MD Work Phone: [facility] 08-03-2022 14:08-0400 Diastolic blood pressure 62 mm[Hg] José Miguel Frias MD Work Phone: [facility] 08-03-2022 14:08-0400 Heart rate 64 /min José Miguel Frias MD Work Phone: [facility] 08-03-2022 14:08-0400 Respiratory rate 12 /min José Miguel Frias MD Work Phone: [facility] 08-03-2022 14:08-0400 Systolic blood pressure 122 mm[Hg] José Miguel Frias MD Work Phone: [facility] 07-26-2022 13:01-0400 Body temperature 98.01 [degF] José Miguel Frias MD Work Phone: [facility] 07-26-2022 13:01-0400 Body weight 77.47 kg José Miguel Frias MD Work Phone: [facility] 07-26-2022 13:01-0400 Diastolic blood pressure 56 mm[Hg] José Miguel Frias MD Work Phone: [facility] 07-26-2022 13:01-0400 Heart rate 68 /min José Miguel Frias MD Work Phone: [facility] 07-26-2022 13:01-0400 Respiratory rate 12 /min José Miguel Frias MD Work Phone: [facility] 07-26-2022 13:01-0400 Systolic blood pressure 100 mm[Hg] José Miguel Frias MD Work Phone: [facility] 07-01-2022 11:07-0500 Body temperature 96.69 [degF] José Miguel Frias MD Work Phone: [facility] 07-01-2022 11:07-0500 Body weight 75.75 kg José Miguel Frias MD Work Phone: [facility] 07-01-2022 11:07-0500 Diastolic blood pressure 68 mm[Hg] José Miguel Frias MD Work Phone: [facility] 07-01-2022 11:07-0500 Heart rate 80 /min José Miguel Frias MD Work Phone: [facility] 07-01-2022 11:07-0500 Respiratory rate 18 /min José Miguel Frias MD Work Phone: [facility] 07-01-2022 11:07-0500 SaO2% (BldA) [Mass fraction] 96 % José Miguel Frias MD Work Phone: [facility] 07-01-2022 11:07-0500 Systolic blood pressure 118 mm[Hg] José Miguel Frias MD Work Phone: [facility] 06-14-2022 13:10-0500 Body height 165.1 cm José Miguel Frias MD Work Phone: [facility] 06-14-2022 13:10-0500 Body temperature 98.01 [degF] José Miguel Frias MD Work Phone: [facility] 06-14-2022 13:10-0500 Body weight 74.84 kg José Miguel Frias MD Work Phone: [facility] 06-14-2022 13:10-0500 Diastolic blood pressure 60 mm[Hg] José Miguel Frias MD Work Phone: [facility] 06-14-2022 13:10-0500 Heart rate 76 /min José Miguel Frias MD Work Phone: [facility] 06-14-2022 13:10-0500 Respiratory rate 12 /min José Miguel Frias MD Work Phone: [facility] 06-14-2022 13:10-0500 Systolic blood pressure 128 mm[Hg] José Miguel Frias MD Work Phone: [facility] 04-27-2022 08:16-0500 Diastolic blood pressure 78 mm[Hg] [facility] 04-27-2022 08:16-0500 Heart rate 78 /min [facility] 04-27-2022 08:16-0500 Respiratory rate 16 /min [facility] 04-27-2022 08:16-0500 SaO2% (BldA) [Mass fraction] 99 % [facility] 04-27-2022 08:16-0500 Systolic blood pressure 130 mm[Hg] [facility] 04-27-2022 04:13-0500 Body temperature 98.2 [degF] [facility] 04-26-2022 22:25-0500 Body height 172.72 cm [facility] 04-26-2022 22:25-0500 Body mass index (BMI) [Ratio] 22.8 kg/m2 [facility] 04-26-2022 22:25-0500 Body weight 68.2 kg [facility] 04-08-2022 20:09-0500 Body temperature 98.4 [degF] [facility] 04-08-2022 20:09-0500 Diastolic blood pressure 61 mm[Hg] [facility] 04-08-2022 20:09-0500 Heart rate 94 /min [facility] 04-08-2022 20:09-0500 Respiratory rate 16 /min [facility] 04-08-2022 20:09-0500 SaO2% (BldA) [Mass fraction] 99 % [facility] 04-08-2022 20:09-0500 Systolic blood pressure 134 mm[Hg] [facility] 04-08-2022 18:18-0500 Body height 172.72 cm [facility] Work Phone: 04-08-2022 18:18-0500 Body mass index (BMI) [Ratio] 20.5 kg/m2 [facility] 04-08-2022 18:18-0500 Body weight 61.23 kg [facility] 03-26-2022 08:39-0500 Body height 172.72 cm [facility] Work Phone: 03-26-2022 08:39-0500 Body mass index (BMI) [Ratio] 22.8 kg/m2 [facility] 03-26-2022 08:39-0500 Body temperature 97.1 [degF] [facility] 03-26-2022 08:39-0500 Body weight 68.03 kg [facility] 03-26-2022 08:39-0500 Diastolic blood pressure 120 mm[Hg] [facility] 03-26-2022 08:39-0500 Heart rate 140 /min [facility] 03-26-2022 08:39-0500 Respiratory rate 18 /min [facility] 03-26-2022 08:39-0500 SaO2% (BldA) [Mass fraction] 99 % [facility] 03-26-2022 08:39-0500 Systolic blood pressure 191 mm[Hg] [facility] 02-22-2017 15:09-0400 BMI (Body Mass Index) [...] Phone: 02-22-2017 15:09-0400 Weight 81.65 kg [facility] Work Phone: 02-07-2016 09:04-0400 BSA (Body Surface Area) 1.96 m2 [facility] Work Phone: 10-02-2013 15:17-0400 Heart rate 56 /min [facility] Work Phone: 05-16-2012 13:58-0500 Heart rate 423 ms [facility] Work Phone: Encounters Encounter Date Encounter Type Care Provider Facility Start: 11-20-2024 ambulatory Emmanuel VELASQUEZ Facil ity:[facility] Start: 10-10-2024 ambulatory Emmanuel VELASQUEZ Facil ity:[facility] Start: 10-10-[address] Emmanuel vázquez MD -[facility] Work Phone: Start: 10-06-2024 End: 10-06-2024 Emergency department patient visit Dr. José Miguel Frias MD Work Phone: -Emergency Department Work Phone: Start: 09-30-2024 End: 09-30-[address] José Miguel Frias MD Work Phone: [facility] Work Phone: Start: 09-30-2024 End: 09-30-[address] Emmanuel Park MD -[facility] Work Phone: Start: 09-30-[address] Emmanuel vázquez MD -[facility] [place] Work Phone: Start: 09-30-2024 End: 09-30-2024 ambulatory José Miguel Frias Facility:[facility] Start: 08-21-2024 End: 08-21-[address] José Miguel Frias MD Work Phone: [facility] Work Phone: Start: 08-21-2024 End: 08-21-[address] Emmanuel Park MD -[facility] Work Phone: Start: 08-21-2024 End: 08-21-2024 ambulatory José Miguel Frias Facility:[facility] Start: 04-23-2024 End: 04-24-2024 Refill José Miguel Frias MD Work Phone: [facility] [place] Comment on above: Refill Request request medicaiton n ot on current med list Start: 04-21-2024 ambulatory José Miguel Frias Facili ty:[facility] Start: 04-16-2024 ambulatory Emmanuel Park OLS Facil ity:[facility] Start: 04-11-2024 End: 04-11-2024 Emergency department patient visit Ellisellen Avila Facility:[facility] Start: 04-02-2024 End: 04-02-2024 ambulatory Emmanuel Park OLS Facility:[facility] Start: 03-19-2024 ambulatory Emmanuel Park OLS Facil ity:[facility] Start: 01-16-2024 End: 01-16-2024 ambulatory Emmanuel Park OLS Facility:[facility] Start: 12-19-2023 Telephone encounter José Miguel odell MD Work Phone: [facility] [place] Comment on above: Patient Outreach Start: 12-14-2023 ambulatory [facility] Start: 12-14-2023 Patient encounter procedure Tammy Ellis MA [facility] Comment on above: Population Health Na vigation Outreach ([facility] - [place] [facility]) Start: 12-14-2023 End: 12-14-2023 ambulatory [facility] O[facility] Facility:[facility] Start: 12-05-2023 End: 12-05-2023 ambulatory Emmanuel Park OLS Facility:[facility] Start: 10-09-2023 ambulatory [facility] Start: 10-09-2023 Patient encounter [facility] Comment on above: Population Health Na vigation Outreach ([facility] CURRENT [facility] workbench - [facility], Care gaps, HCC gap closure - [facility]) Start: 08-30-2023 ambulatory [facility] Start: 08-30-2023 Patient encounter [facility] Comment on above: Population Health Na vigation Outreach ([facility] CURRENT [facility] workbench - [facility], Care gaps, HCC gap closure - [place] [facility]) Start: 05-29-2023 End: 05-29-2023 ambulatory JOSÉ MIGUEL FRIAS Facility:[facility] Start: 04-12-2023 Refill José Miguel beck MD Work Phone: [facility] [place] Comment on above: Refill Request Start: 04-10-2023 Telephone encounter Nedra abdullahi PROCESS IMPROVEMENT MANAGER.MACHINE SPECIALIST Work Phone: [facility] [place] Comment on above: Orders Start: 03-26-2023 Telephone encounter José Miguel odell MD Work Phone: [facility] [place] Comment on above: [facility] HH Update Start: 03-23-2023 Refill José Miguel beck MD Work Phone: [facility] [place] Comment on above: Refill Request Start: 03-22-2023 Telephone encounter José Miguel odell MD Work Phone: [facility] [place] Comment on above: Patient Update Start: 03-19-2023 Telephone encounter Nedra Kim ks PROCESS IMPROVEMENT MANAGER.MACHINE SPECIALIST Work Phone: [facility] [place] Comment on above: report on patient le gs Start: 03-13-2023 Telephone encounter José Miguel odell MD Work Phone: [facility] [place] Comment on above: Release Of Medical R ecords Start: 03-09-2023 ambulatory José Miguel beck MD Work Phone: [facility] [place] Comment on above: Edema Start: 03-09-2023 Telephone encounter José Miguel odell MD Work Phone: [facility] [place] Comment on above: Medication Problem Start: 03-06-2023 Telephone encounter José Miguel odell MD Work Phone: [facility] [place] Comment on above: [facility] PT POC medication allergy Start: 02-27-2023 Telephone encounter José Miguel odell MD Work Phone: [facility] [place] Comment on above: [facility] HH Plan Start: 02-24-2023 Non-patient / Non-visit Dr. Christine Frias Work Phone: [facility] Work Phone: Start: 02-23-2023 Non-patient / Non-visit Dr. Christine Frias Work Phone: [facility] Work Phone: Start: 02-23-2023 End: 02-25-2023 Evaluation and management of inpatient Dr. José Miguel Frias Work Phone: [facility] 3 Work Phone: Start: 02-23-2023 End: 02-25-[address] José Miguel Frias Work Phone: [facility] Work Phone: Start: 12-26-2022 Telephone encounter José Miguel odell MD Work Phone: [facility] [place] Comment on above: Patient Update Start: 12-22-2022 End: 12-22-2022 Patient encounter procedure José Miguel Frias MD Work Phone: [facility] [place] Comment on above: Dyspnea, unspecified type (Primary Dx); Venous (peripheral) insufficiency; Stasis dermatitis of both legs; Dementia with behavioral disturbance (HCC); History of panic attacks Start: 11-29-2022 Refill José Miguel beck MD Work Phone: [facility] [place] Comment on above: Refill Request Start: 11-22-2022 End: 11-22-2022 Patient encounter procedure Nestor Hughes Work Phone: Podiatry Comment on above: Traumatic avulsion o f nail plate of toe, initial encounter (Primary Dx); Onychomycosis; Venous insufficiency; Callus Start: 11-06-2022 Orders Only José Miguel beck MD Work Phone: [facility] [place] Comment on above: Major depressive dis order with current active episode, unspecified depression episode severity, unspecified whether recurrent (Primary Dx); Dementia with behavioral disturbance (HCC) Start: 10-31-2022 End: 10-31-2022 Subsequent hospital visit by physician [facility] Work Phone: Radiology Comment on above: Injury of right grea t toe, initial encounter [S99.921A] Start: 10-31-2022 End: 10-31-2022 Office outpatient visit 15 minutes Nedra Cheema APRN.CNS Work Phone: [facility] [place] Comment on above: Avulsion of toenail, initial encounter (Primary Dx); Injury of right great toe, initial encounter; Cellulitis of great toe of right foot Start: 10-31-2022 Telephone encounter José Miguel odell MD Work Phone: [facility] [place] Comment on above: Patient Update Start: 10-18-2022 End: 10-18-2022 ambulatory [facility] Work Phone: Start: 10-18-2022 End: 10-18-2022 Departed Referred [facility] Thais Aguirre Start: 10-05-2022 ambulatory [facility] ([facility] Comment on above: Population Health Na vigation Outreach ([place] care gap) Start: 09-15-2022 End: 09-15-2022 Patient encounter procedure José Miguel Frias MD Work Phone: [facility] [place] Comment on above: Acute erythematous e ruption of skin (Primary Dx); Bilateral lower extremity edema; Venous insufficiency; Primary hypertension; DDD (degenerative disc disease), lumbar Start: 09-04-2022 End: 09-04-2022 Patient encounter procedure Mckenzie Ruggiero APRN.AIR DIRECTOR Work Phone: [facility] [place] Comment on above: Acute erythematous e ruption of skin (Primary Dx); Venous insufficiency; Bilateral lower extremity edema Start: 08-25-2022 End: 08-25-2022 ambulatory [facility] Work Phone: Start: 08-25-2022 End: 08-25-2022 Departed [facility] Start: 08-10-2022 Telephone encounter José Miguel odell MD Work Phone: Internal [facility] Comment on above: Medication Question Start: 08-03-2022 End: 08-03-2022 Patient encounter procedure José Miguel Frias MD Work Phone: Internal [facility] [place] Comment on above: Dementia with behavi oral disturbance (HCC) (Primary Dx); Major depressive disorder with current active episode, unspecified depression episode severity, unspecified whether recurrent; Seborrheic dermatitis of scalp; Hypothyroidism, acquired; Hyperlipidemia LDL goal <130 Start: 08-01-2022 ambulatory Kaye MCKENNA CRIMINALIST TECHNICIAN Comment on above: Patient Update (Conf erenced facility CAN TOP SETTER to affiliate line ) Start: 08-01-2022 Telephone encounter José Miguel odell MD Work Phone: Family [facility] Comment on above: Results Confusion Start: 07-31-2022 Refill José Miguel beck MD Work Phone: Internal [facility] [place] Comment on above: Refill Request Start: 07-28-2022 End: 07-28-2022 ambulatory [facility] Work Phone: Start: 07-28-2022 End: 07-28-2022 Departed Referred [facility] Start: 07-28-2022 Registered Referred [facility] Start: 07-26-2022 End: 07-26-2022 Patient encounter procedure José Miguel Frias MD Work Phone: Internal [facility] [place] Comment on above: Dementia with behavi oral disturbance (HCC) (Primary Dx); Major depressive disorder with current active episode, unspecified depression episode severity, unspecified whether recurrent; Venous (peripheral) insufficiency; Primary hypertension Start: 07-18-2022 End: 07-18-2022 ambulatory [facility] Work Phone: Start: 07-18-2022 End: 07-18-2022 Departed Referred [facility] Start: 07-12-2022 Telephone encounter José Miguel odell MD Work Phone: Internal [facility] [place] Comment on above: Patient Update Start: 07-07-2022 ambulatory José Miguel beck MD Work Phone: [facility] Comment on above: Allied Health Visit (Medication Adherence Outreach) Start: 07-01-2022 End: 07-01-2022 Patient encounter procedure José Miguel Frias MD Work Phone: Internal [facility] [place] Comment on above: Sinusitis, unspecifi ed chronicity, unspecified location (Primary Dx); Dementia with behavioral disturbance (HCC); Major depressive disorder with current active episode, unspecified depression episode severity, unspecified whether recurrent Start: 06-27-2022 Telephone encounter José Miguel odell MD Work Phone: [facility] [place] Comment on above: behavioral change Start: 06-14-2022 End: 06-14-2022 Patient encounter procedure José Miguel Frias MD Work Phone: Internal [facility] [place] Comment on above: Dementia with behavi oral disturbance (Primary Dx); Major depressive disorder with current active episode, unspecified depression episode severity, unspecified whether recurrent; Primary hypertension; Hypothyroidism, acquired; Hyperlipidemia LDL goal <130; Impacted cerumen of both ears Start: 05-17-2022 End: 05-17-2022 ambulatory [facility] Work Phone: Start: 05-17-2022 End: 05-17-2022 Departed Referred [facility] Start: 04-26-2022 End: 04-27-2022 Emergency department patient visit [facility] Start: 04-08-2022 End: 04-08-2022 Emergency department patient visit [facility] Start: 03-26-2022 End: 03-26-2022 Emergency department patient visit [facility] Start: 08-23-2021 Refill José Miguel beck MD Work Phone: Internal [facility] Comment on above: Prescription Refills Start: 08-18-2021 Refill Cecilio PRICE RN.CEDRIC HOLLIS Work Phone: [facility] Comment on above: Refill Request Start: 08-09-2021 ambulatory José Miguel beck MD Work Phone: Internal Medicine [facility] Start: 07-24-2021 Refill Cecilio PRICE RN.CERDIC HOLLIS Work Phone: [facility] Comment on above: Refill Request Procedures [...] foot complete minimum 3 views Nedra Deni PROCESS IMPROVEMENT MANAGER.MACHINE SPECIALIST Work Phone: Start: 04-26-2022 Plain chest X-ray [...] routine ecg w/least 12 lds w/i&r [facility] Tlobert MD Start: 05-16-2012 End: 10-02-2013 Follow Up Appt 1 year [facility] Start: 05-25-2011 End: 05-25-2011 Ecg routine ecg w/least 12 lds w/i&r Gut[facility] Tolbert MD Start: 05-25-2011 End: 05-25-2011 Follow Up Appt 1 year [facility] Urine culture Urine culture Urine culture Urine culture Viral antigen assay Plan of Treatment Date Care Activity Detail Author Start: 08-03-2025 DIABETES SCREEN DIABETES SCREEN [facility] Start: 08-03-2025 Diabetes Screening Diabetes Screenin g [facility] Start: 01-06-2024 Covid-19 Vaccine () Covid-19 Vaccine () [facility] Start: 01-06-2024 Covid-19 Vaccine (4 - 2024-25 season) Covid-19 Vaccine ( season) [facility] Start: 01-06-2024 Influenza vaccination C [facility] Start: 12-12-2023 End: 12-12-2023 Patient encounter procedure 12/12/2023 3:00 PM EDT Office Visit [facility] [place] [address] [place] [address] Mckenzie Funk, PROCESS IMPROVEMENT MANAGER.AIR DIRECTOR [address] [place] [address] Annual Medicare Wellness [facility] [place] Comment on above: Annual Medicare Well ness Start: 09-05-2023 COVID-19 VACCINE (4 - Booster for Pfizer series) COVID-19 VACCINE (4 - Booster for Pfizer series) [facility] Comment on above: Postponed from 08/09 (Declined at this time) Start: 09-05-2023 COVID-19 VACCINE (4 - Pfizer series) COVID-19 VACCINE (4 - Pfizer series) [facility] Comment on above: Postponed from 08/09 (Declined at this time) Start: 09-05-2023 SHINGRIX VACCINE (2 of 3) LEMUS GRIX VACCINE (2 of 3) [facility] Comment on above: Postponed from 08/31 (Declined at this time) Start: 09-05-2023 Urine microalbumin profile [facility] Comment on above: Postponed from 05/21 (Declined at this time) Start: 05-07-2023 Advance Directive Discussion Advance Directive Discussion [facility] Start: 02-25-2023 Patient discharge [facility] Start: 02-24-2023 Referral to service [facility] Start: 02-23-2023 Following clinical pathway protocol [facility] Start: 02-23-2023 Ambulation without limitation [facility] Start: 02-23-2023 Assessment of risk o f venous thromboembolism [facility] Start: 02-23-2023 Insertion of cathete r into peripheral vein [facility] Start: 02-23-2023 Measuring intake and output [facility] Start: 02-23-2023 Providing care accor ding to standard [facility] Start: 02-23-2023 Referral to occupati onal therapist [facility] Start: 02-23-2023 Referral to service [facility] Start: 02-23-2023 [facility] Start: 02-23-2023 Admission procedure [facility] Start: 02-23-2023 End: 02-24-2023 [facility] Start: 02-23-2023 Urine culture Urine Culture [facility] Start: 02-23-2023 Patient referral to dietitian [facility] Start: 01-05-2023 Covid-19 Vaccine () Covid-19 Vaccine () [facility] Start: 01-05-2023 Influenza vaccination C [facility] Start: 06-15-2022 End: 08-15-2022 CBC panel - Blood by Automated count CBC Lab Routine Primary hypertension Expected: 06/15/2022, Expires: 08/15/2022 [facility] Work Phone: Comment on above: Expected: 06/15/2022 , Expires: 08/15/2022 Start: 06-15-2022 End: 08-15-2022 Comprehensive metabolic 2000 panel - Serum or Plasma COMP METABOLIC PANEL Lab Routine Hyperlipidemia LDL goal <130 Expected: 06/15/2022, Expires: 08/15/2022 [facility] Work Phone: Comment on above: Expected: 06/15/2022 , Expires: 08/15/2022 Start: 06-15-2022 End: 08-15-2022 Lipid 1996 panel - Serum or Plasma LIPID PANEL BASIC Lab Routine Hyperlipidemia LDL goal <130 Expected: 06/15/2022, Expires: 08/15/2022 [facility] Work Phone: Comment on above: Expected: 06/15/2022 , Expires: 08/15/2022 Start: 06-15-2022 End: 08-15-2022 Thyrotropin [Units/volume] in Serum or Plasma TSH BLD Lab Routine Hypothyroidism, acquired Expected: 06/15/2022, Expires: 08/15/2022 [facility] Work Phone: Comment on above: Expected: 06/15/2022 , Expires: 08/15/2022 Start: 05-13-2022 DIABETES SCREEN DIABETES SCREEN [facility] Start: 05-07-2022 ADVANCE DIRECTIVE DISCUSSION ADVANCE DIRECTIVE DISCUSSION [facility] Start: 03-26-2022 [facility] Work Phone: Start: 01-05-2022 Influenza vaccination [facility] Start: 08-09-2021 End: 10-09-2021 CBC panel - Blood by Automated count CBC Lab Routine Medication management Expected: 08/09/2021, Expires: 10/09/2021 [facility] Work Phone: Comment on above: Expected: 08/09/2021 , Expires: 10/09/2021 Start: 08-09-2021 COVID-19 VACCINE (4 - Booster for Pfizer series) COVID-19 VACCINE (4 - Booster for Pfizer series) [facility] Start: 08-09-2021 End: 10-09-2021 SCHEDULE LAB TESTING SCHEDULE LAB TESTING Lab Routine Expected: 08/09/2021, Expires: 10/09/2021 [facility] Work Phone: Comment on above: Expected: 08/09/2021 , Expires: 10/09/2021 Start: 05-07-2021 ADVANCE DIRECTIVE DISCUSSION ADVANCE DIRECTIVE DISCUSSION [facility] Start: 01-05-2021 Influenza vaccination INFLUENZA (#1) [facility] Start: 12-29-2020 COVID-19 VACCINE (3 - Booster for Pfizer series) COVID-19 VACCINE (3 - Booster for Pfizer series) [facility] Start: 02-20-2018 End: 02-20-2018 Appointment [facility] Work Phone: Start: 02-22-2017 End: 02-22-2017 Follow Up Appt 1 year Follow Up Appt 1 year [facility] Work Phone: Start: 02-22-2017 End: 02-22-2017 Follow Up Appt Other Follow Up Appt Other [facility] Work Phone: Start: 02-22-2017 End: 02-22-2017 PFM PFM [facility] Work Phone: Start: 06-29-2016 End: 12-30-2015 *Hepatic Function Panel *Hepatic Function Panel [facility] Work Phone: Start: 06-29-2016 End: 12-30-2015 Lipid 1996 panel *Lipid Profile CC PCP [facility] Work Phone: Start: 02-07-2016 End: 02-07-2016 Follow Up Appt 1 year Follow Up Appt 1 year [facility] Work Phone: Start: 02-07-2016 End: 02-07-2016 PFM PFM [facility] Work Phone: Start: 10-22-2015 End: 12-28-2015 Lipid 1996 panel *Lipid Profile CC PCP [facility] Work Phone: Start: 05-21-2015 Urine microalbumin profile [facility] Start: 04-06-2015 End: 04-22-2015 *Hepatic Function Panel *Hepatic Function Panel [facility] Work Phone: Start: 04-06-2015 End: 04-22-2015 Lipid 1996 panel *Lipid Profile CC PCP [facility] Work Phone: Start: 01-04-2015 End: 01-04-2015 Follow Up Appt 1 year Follow Up Appt 1 year [facility] Work Phone: Start: 01-04-2015 End: 01-04-2015 PFM PFM [facility] Work Phone: Start: 04-06-2014 End: 10-26-2014 *Hepatic Function Panel *Hepatic Function Panel [facility] Work Phone: Start: 04-06-2014 End: 10-26-2014 Lipid 1996 panel *Lipid Profile CC PCP [facility] Work Phone: Start: 10-02-2013 End: 10-10-2013 *Hepatic Function Panel *Hepatic Function Panel [facility] Work Phone: Start: 10-02-2013 [...] hour holter monitor 48 hour holter monitor [facility] Work Phone: Start: 2012 RSV Vaccine (1 - 1-d ose 75+ series) RSV Vaccine (1 - 1-dose 75+ series) [facility] Start: 05-16-2012 End: 05-16-2012 Ecg routine ecg w/least 12 lds w/i&r EKG (In office) [facility] Work Phone: Start: 05-16-2012 End: 10-02-2013 Follow Up Appt 1 year Follow Up Appt 1 year [facility] Work Phone: Start: 05-16-2012 [...] 3) LEMUS GRIX VACCINE (2 of 3) [facility] Start: 1997 RSV Vaccine (1 - 1-d ose 60+ series) RSV Vaccine (1 - 1-dose 60+ series) [facility] Bacteria identified in Urine by Culture Urine Culture [facility] Work Phone: End: 12-23-2023 ECG COMPLETE ECG COMPLETE ECG Routine Dyspnea, unspecified type 1 Occurrences starting 12/22/2022 until 12/23/2023 [facility] Work Phone: Comment on above: 1 Occurrences starti ng 12/22/2022 until 12/23/2023 In-vitro immunologic test [facility] 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 [facility] Patient Education [facility] Work Phone: Patient referral [facility] Work Phone: End: 11-30-2023 XR FOOT GENERAL 3V AP/LAT/OBL RIGHT XR FOOT GENERAL 3V AP/LAT/OBL RIGHT Radiology Routine Injury of right great toe, initial encounter 1 Occurrences starting 10/31/2022 until 11/30/2023 [facility] Work Phone: Comment on above: 1 Occurrences starti ng 10/31/2022 until 11/30/2023 XR FOOT GENERAL 3V AP/LAT/OBL RIGHT XR FOOT GENERAL 3V AP/LAT/OBL RIGHT Radiology Routine Injury of right great toe, initial encounter 10/31/2022 4:35 PM EDT [facility] Work Phone: [facility] Immunizations Immunization Date Immunization Notes Care Provider Fa cili 06-14-2021 Covid (Pfizer) Dr. José Miguel Frias Work Phone: [facility] 06-14-2021 influenza, high-dose , quadrivalent vaccine (FLUZONE HIGH DOSE QUADRIVALENT) José Miguel Frias MD Work Phone: [facility] Work Phone: 06-14-2021 influenza virus vacc ine, unspecified formulation José Miguel Frias MD Work Phone: [facility] 07-29-2020 COVID-19 vaccine, ag e 12+ yr (PFIZERBIONTECH - [facility]) Cecilio Swartz APRN.[facility] Work Phone: [facility] 07-08-2020 COVID-19 vaccine, ag e 12+ yr (PFIZER-BIONTECH - [facility]) Cecilio Swartz APRN.[facility] Work Phone: [facility] 01-15-2020 influenza, high-dose , quadrivalent vaccine (FLUZONE HIGH DOSE QUADRIVALENT) Cecilio Swartz APRN.[facility] Work Phone: [facility] 02-11-2019 Influenza, high dose seasonal Dr. José Miguel Frias MD Work Phone: [facility] 02-11-2019 influenza, high dose seasonal, preservative-free Cecilio Swartz APRN.[facility] Work Phone: [facility] 02-11-2018 Influenza, high dose seasonal Dr. José Miguel Frias MD Work Phone: [facility] 02-11-2018 influenza, high dose seasonal, preservative-free Cecilio Swartz APRN.[facility] Work Phone: [facility] 01-23-2017 Influenza, high dose seasonal Dr. José Miguel Frias MD Work Phone: [facility] 01-23-2017 influenza, high dose seasonal, preservative-free Cecilio Swartz APRN.CEDRIC HOLLIS Work Phone: [facility] 03-09-2016 Influenza, high dose seasonal Dr. José Miguel Frias MD Work Phone: [facility] 03-09-2016 influenza, high dose seasonal, preservative-free Cecilio Swartz APRN.CEDRIC HOLLIS Work Phone: [facility] 03-09-2016 pneumococcal conjuga te vaccine, 13 valent Cecilio Swartz APRN.[facility] Work Phone: [facility] 05-20-2015 tetanus and diphther ia toxoids, adsorbed, preservative free, for adult use (2 Lf of tetanus toxoid and 2 Lf of diphtheria toxoid) Dr. José Miguel Frias Work Phone: [facility] 05-20-2015 tetanus and diphther ia toxoids, adsorbed, preservative free, for adult use (5 Lf of tetanus toxoid and 2 Lf of diphtheria toxoid) Cecilio Swartz APRN.[facility] Work Phone: [facility] 02-15-2015 Influenza, high dose seasonal Dr. José Miguel Frias MD Work Phone: [facility] 02-15-2015 influenza, high dose seasonal, preservative-free Cecilio Swartz APRN.[facility] Work Phone: [facility] 02-12-2014 Influenza, high dose seasonal Dr. José Miguel Frias MD Work Phone: [facility] 02-12-2014 influenza, high dose seasonal, preservative-free Cecilio Swartz APRN.[facility] Work Phone: [facility] 03-18-2013 influenza virus vacc ine, unspecified formulation Cecilio Swartz APRN.[facility] Work Phone: [facility] 02-05-2012 influenza virus vacc ine, unspecified formulation Cecilio Blaabdulaziz CUELLO.[facility] Work Phone: [facility] 03-07-2011 influenza virus vacc ine, unspecified formulation Cecilio Swartz APRN.[facility] Work Phone: [facility] 03-08-2010 influenza virus vacc ine, unspecified formulation Cecilio Blaz PROCESS IMPROVEMENT MANAGER.[facility] Work Phone: [facility] 07-06-2009 zoster vaccine, live Cecilio Swartz APRN.[facility] Work Phone: [facility] 05-25-2009 novel influenza-H1N1 -09, preservative-free, injectable José Miguel Frias MD Work Phone: [facility] Work Phone: 01-25-2009 influenza virus vacc ine, unspecified formulation Cecilio Swartz APRN.[facility] Work Phone: [facility] Work Phone: 03-19-2008 influenza virus vacc ine, unspecified formulation Cecilio Swartz APRN.[facility], [facility] Work Phone: [facility] Work Phone: 03-11-2007 influenza virus vacc ine, unspecified formulation Cecilio Swartz APRN.[facility] Work Phone: [facility] 01-24-2007 pneumococcal polysaccharide vaccine, 23 valent Cecilio Swartz APRN.[facility], [facility] Work Phone: [facility] 03-20-2006 influenza virus vacc ine, unspecified formulation Cecilio Swartz APRN.[facility], [facility] Work Phone: [facility] Work Phone: 03-13-2005 influenza virus vacc ine, whole virus Cecilio Swartz APRN.[facility] Work Phone: [facility] Payers Date Payer Category Payer Self-pay [id number] 2018 Unknown REPLACED BY [facility] [employer] [facility] AND [facility] ACC[facility] [id number] 2018-Present [phone] [address] [place] [address] [facility] [id number] 2018 Unknown [id number] 2012 Medicare [id number] Medicare MEDICARE PART A B [id number] Unknown [id number] Unknown [id number] Unknown [id number] Unknown [id number] Unknown [id number] Unknown [id number] Unknown [id number] Unknown [id number] Unknown [id number] Unknown [id number] Unknown [id number] Unknown [id number] Unknown [id number] Unknown [id number] Social History Date Type Detail Facility Start: 06-14-2022 End: 04-11-2024 Tobacco smoking status NHIS Never smoked tobacco [facility] Start: 05-11-2021 End: 05-29-2023 Alcohol intake Current drinker of alcohol (finding) [facility] Start: 1935 Sex Assigned At Not on file [facility] Start: 03-26-2022 End: 02-23-2023 Tobacco smoking status WIIS Unknown if ever smoked [facility] Start: 1935 Sex Assigned At Female [facility] Start: 06-14-2022 Tobacco use and exposure Smokeless tobacco non-user [facility] Work Phone: Start: 09-08-2022 End: 11-22-2022 History of Social function [facility] Work Phone: Start: 09-08-2022 End: 11-22-2022 Tobacco use panel [facility] Work Phone: Adult Depression Screening Assessment 2 [facility] Work Phone: Medical Equipment Procedure Code Equipment Code Equipment Origin al Text Equipment Identifier Dates Plug Perfix Bard Medium Taper Polypropylene 1.55x1.3in Surgical - [id number] Start: 05-30-2016 Goals Date Patient Goal Desired Activity /State Personal health goal Personal health goal Functional Status Date Assessment Result Facility 02-25-2023 Functional status Chair;Bathroom Privileg [facility] Work Phone: Mental Status Date Assessment Result Facility 02-25-2023 Cognitive function Appropriate;Cooperativ e [facility] Work Phone: Clinical Notes 08-01-2017 to 10-06-2024 Telephone Encounter - Lina Berry LPN - 04/24/2024 11:05 AM ESTTelephone Encounter - Lina Berry LPN - 04/24/2024 11:05 AM Tammy Espinosa MA - 12/14/2023 8:40 AM EDT Note Date & Type Note Facility 10-06-2024 Radiology Diagnostic study note [facility] [address] [place] [address] [id number] Brain/Head without Contrast MR#: [id number] Acct: [id number] Name: CHRISTY FOFANA Rep #: [id number] : [id number] F 89 From: Twyla Ferreira MD PCP: Dr. José Miguel Frias MD Status: P RE ER Study:Brain/Head without Contrast Date of Exa m: 10/06/24 Exam# [id number] Ordering Dr: Lc Lo MD PROCEDURE: BRAIN/HEAD [...] IMPRESSION: No acute intracranial abnormality. Reading Location: [id number] CC: Dr. Lc Lo MD; Dr. José Miguel Frias MD ~ Lumber Sorter Machine: Signed [facility] 04-24-2024 Telephone encount er Note PCP changed to in house Doctor. Lina Berry LPN [facility] 04-24-2024 Miscellaneous Notes Formattin g [...] Hernandez MA April 23, 2024 4:08 PM [facility] Thais Aguirre [facility] is calling José Miguel Frias MD today to request a medication not on current med list: Disp Refills Start End hydrOXYzine pamoate (VISTARIL) 25 mg capsule 30 5 Patient has been identified by name and birthdate. Closing statement: Results or non-symptom based questions: Thank you for calling [facility], your call will be returned within the next business day. Niecy Naylorsec documented in this encounter [facility] 04-23-2024 Telephone encount er Note [...] under Prescriber care PCP Emmanuel Park DO [facility] 04-23-2024 Telephone encount er Note [...] Hernandez MA April 23, 2024 4:08 PM [facility] 04-23-2024 Telephone encount er Note Daughter states that Christy is patient of in house doctors Dr. Park. Disregard refill requests. [facility] 04-23-2024 Miscellaneous Notes Formattin g [...] Yes NOTE: patient lives at assisted living [facility] The last office visit in the [...] 2024 2:23 PM documented in this encounter [facility] 04-23-2024 Telephone encount er Note [facility] is calling José Miguel Frias MD today to request a medication not on current med list: Disp Refills Start End hydrOXYzine pamoate (VISTARIL) 25 mg capsule 30 5 Patient has been identified by name and birthdate. Closing statement: Results or non-symptom based questions: Thank you for calling [facility], your call will be returned within the next business day. Niecy Avilez [facility] 04-23-2024 Telephone encount er Note Prescription Refill Information The patient has been identified by name and date of : Yes Caregiver verified no other encounters exist for this prescription request: Yes Caregiver confirmed with patient/requestor that no other refills are due, in the near future, with this provider at this time: Yes NOTE: patient lives at assisted living [facility] The last office visit in the [...] Niecy Avilez April 23, 2024 2:23 PM [facility] 12-19-2023 Telephone encount er Note POPULATION HEALTH NAVIGATION OUTREACH Action/FYI Reason for Outreach Care Gap/HCC or Scheduling Wellness Visits Care Gaps due: Medicare Annual Wellness Visit Patient Contacted: Patient is currently at [place], she is seeing in-house Dr. Emmanuel [place] Navigation Signature: Lina Berry LPN December 19, 2023 4:51 PM [facility] 12-19-2023 Miscellaneous Notes Formattin g of this note is different from the original. POPULATION HEALTH NAVIGATION OUTREACH Action/FYI Reason for Outreach Care Gap/HCC or Scheduling Wellness Visits Care Gaps due: Medicare Annual Wellness Visit Patient Contacted: Patient is currently at [place], she is seeing in-house Dr. Emmanuel Park Navigation Signature: Lina Berry LPN December 19, 2023 4:51 PM documented in this encounter [facility] 12-19-2023 Note HNO ID: [id number] Author: ODALIS BRIGGS MA Service: ? Author Type: Planer Setup Operator Type: Progress Notes Filed: 12/19/2023 08:49 Note Text: POPULATION HEALTH NAVIGATION OUTREACH Action/FYI Letter received and sent to be mailed. Navigation Signature: Odalis Briggs Population Health Navigator December 19, 2023 8:49 AM [facility] 12-14-2023 Note HNO ID: [id number] Author: TAMMY ELLIS MA Service: ? Author Type: Planer Setup Operator Type: Progress Notes Filed: 12/14/2023 11:14 Note Text: POPULATION HEALTH NAVIGATION OUTREACH Action/FYI Patient is on [facility] CURRENT [facility] Workbench list for below [...] Ellis MA December 14, 2023 8:51 AM [facility] 12-14-2023 History of Presen t illness Narrative POPULATION HEALTH NAVIGATION OUTREACH Action/FYI Patient is on [facility] CURRENT [facility] Workbenc list for below and needs [...] 2023 8:51 AM documented in this encounter [facility] 12-14-2023 Note Patient Outreach (TINA MUSTAFA) CHRISTY FOFANA ([id number]) 1935 F Date Time Provider Department 12/14/23 TAMMY ELLIS During your visit today, we recorded the following information about you: Tammy Ellis MA 12/14/2023 11:14 AM Signed POPULATION HEALTH NAVIGATION OUTREACH Action/FYI Patient is on [facility] CURRENT [facility] Workbench list for below [...] Date Reviewed: 05/29/2023 Reviewed by: Mckenzie Funk APRN.AIR DIRECTOR - Fully Assessed Reason for Visit: Population [...] 03/04/2012 06/14/2022 Eosi (more content not included)... [facility] 10-09-2023 Note HNO ID: [id number] Author: TAMMY ELLIS MA Service: ? Author Type: Planer Setup Operator Type: Progress Notes Filed: 10/09/2023 08:53 Note Text: POPULATION HEALTH NAVIGATION OUTREACH Action/FYI Patient is on [facility] CURRENT [facility] Workbench list for below [...] labs: Medicare Annual Wellness Visit 12/12/2023 in [facility] with MCKENZIE FUNK - Annual Medicare Wellness, Please address due care gaps and HCC gap closure HCC related Navigation Signature: Tammy Ellis MA October 09, 2023 7:16 AM [facility] 10-09-2023 History of Presen t illness Narrative POPULATION HEALTH NAVIGATION OUTREACH Action/FYI Patient is on [facility] CURRENT [facility] Workbench list for below [...] labs: Medicare Annual Wellness Visit 12/12/2023 in [facility] with MCKENZIE FUNK - Annual Medicare Wellness, Please address due care gaps and HCC gap closure HCC related Navigation Signature: Tammy Ellis MA October 09, 2023 7:16 AM documented in this encounter [facility] 10-09-2023 Note Patient Outreach (NE TNAV) BRIGIDOCHRISTY ([id number]) 1935 F Date Time Provider Department 10/09/23 TAMMY ELLIS During your visit today, we recorded the following information about you: Tammy Ellis MA 10/09/2023 8:53 AM Signed POPULATION HEALTH NAVIGATION OUTREACH Action/ Patient is on [facility] CURRENT [facility] Workbench list for below [...] labs: Medicare Annual Wellness Visit 12/12/2023 in [facility] with MCKENZIE FUNK - Annual Medicare [...] Date Reviewed: 05/29/2023 Reviewed by: Mckenzie Funk, PROCESS IMPROVEMENT MANAGER.AIR DIRECTOR - Fully Assessed Reason for Visit: Population Health Navigation Outreach [3910] Cmt: [facility] CURRENT [facility] workbench - AWV, Care gaps, HCC gap closure - [place] [facility] Prescriptions as of 12/19/2023 - furosemide [...] mention of hem* (more content not included)... [facility] 08-30-2023 Note HNO ID: [id number] Author: TAMMY ELLIS MA Service: ? Author Type: Planer Setup Operator Type: Progress Notes Filed: 08/30/2023 11:26 Note Text: POPULATION HEALTH NAVIGATION OUTREACH Action/FYI Patient is on [facility] CURRENT [facility]OST[facility] Workbench list for below [...] Ellis MA August 30, 2023 7:28 AM [facility] 08-30-2023 History of Presen t illness Narrative POPULATION HEALTH NAVIGATION OUTREACH Action/FYI Patient is on [facility] CURRENT ROST Workbench list for below [...] 2023 7:28 AM documented in this encounter [facility] 08-30-2023 Note Patient Outreach (NE TNAV) HCRISTY FOFANA ([id number]) 1935 F Date Time Provider Department 08/30/23 TAMMY ELLIS During your visit today, we recorded the following information about you: Tammy Ellis MA 08/30/2023 11:26 AM Signed POPULATION HEALTH NAVIGATION OUTREACH Action/FYI Patient is on [facility] CURRENT [facility] Workbench list for below [...] Date Reviewed: 05/29/2023 Reviewed by: Mckenzie Funk, PROCESS IMPROVEMENT MANAGER.AIR DIRECTOR - Fully Assessed Reason for Visit: Population Health Navigation Outreach [3910] Cmt: [facility] CURRENT [facility]OST[facility] workbench - AWV, Care [...] lower limb [L03.116] (more content not included)... [facility] 05-29-2023 Note HNO ID: [id number] Author: MCKENZIE FUNK APRN.AIR DIRECTOR Service: ? Author Type: Nurse Practitioner Type: [...] Pulse 91 T (more content not included)... [facility] 04-12-2023 Miscellaneous Notes Formattin g of this note might be different from the original. Fax from [facility] stoner for refills.asking for refill for asa 81 mg daily and multivitamin daily documented in this encounter [facility] 04-10-2023 Miscellaneous Notes Formattin g of this note might be different from the original. Form has been faxed back Fax request for refill of spironolactone received from longterm received. Patient had been placed on spironolactone diuretic for lower extremity swelling previously. Given refill for 1 additional month. Can reassess for ongoing need at upcoming visit with PCP April 19, 2023. documented in this encounter [facility] 03-26-2023 Miscellaneous Notes Formattin g of this note might be different from the original. Noted. Kristen [facility] Nurse calling. States they received referral for pt to have Nursing for leg cellulitis. Kristen states she saw patient this past Sunday and pt has no redness to legs, no open areas, no increased warmth to legs, and no s/sx cellulitis at this time. They will not be admitting pt to Nursing services at this time. Pt lives in memory care unit at [facility] and the nurses there have been educated to watch for s/sx of cellulitis. Pt has dementia and can be noncompliant with leg wraps and elevation. Braenne Boggs, RN documented in this encounter [facility] 03-23-2023 Miscellaneous Notes Formattin g of this note might be different from the original. Fax from pharmacy asking for refill. documented in this encounter [facility] 03-22-2023 Miscellaneous Notes Formattin g of this note might be different from the original. Spoke with JARVIS Arnold @ [facility]. Given message from provider's office. He verbalizes understanding. Rosa M Londono RN [place] Clayton, PT @ [facility] calling with update. PT will see patient once next week for re-evaluation. Clayton is asking for order for nursing evaluation/treat to monitor patient's cellulitis. Please call him @ [phone] with verbal okay. Rosa M Londono, RN documented in this encounter [facility] 03-22-2023 Miscellaneous Notes Formattin g of this note might be different from the original. Maria Luisa, nurse At [place] returning call. Message below reviewed with Maria [...] Sunday. Please advise documented in this encounter [facility] 03-13-2023 Miscellaneous Notes Formattin g of this note might be different from the original. Delfina Aragon with [facility] calls to request a copy of most recent OV note be faxed to them. Faxed to [phone] per request. Ivana Foster RN documented in this encounter [facility] 03-12-2023 Miscellaneous Notes Formattin g of this note might be different from the original. Spoke to Steph/pharmacist at [facility] [place] [facility], given a verbal for 28 tablets. Lina Berry LPN yes, resent Pharmacist at [facility] [place] pharmacy reports Shweta Sneed, send Rx for keflex 500 mg take 1 capsule by mouth 4 times daily for 7 days, with quantity #14 instead of #28. Asking if she can change quantity to #28. Please phone pharmacist with verbal: [phone] documented in this encounter [facility] 03-09-2023 Miscellaneous Notes Formattin g of this note is different from the original. Reason for Disposition [1] Red area or streak [2] large (> 2 in. or 5 cm) Protocols used: Leg Swelling and [id number] Instructed nurse to send pt to the [...] : N/A Protocols used: Leg Swelling and [id number] documented in this encounter [facility] 03-07-2023 Miscellaneous Notes Formattin g of this note might be different from the original. Delfina-[facility] called and is notified of providers message and instructions. She voices understanding and reports she will call the Pt and notify her. Elsy Rosales RN Yes, allergy noted. Yes continue simvastatin. Medications reconciled with discharge summary. Schedule hospital follow up appointment. Delfina with [facility] calls to see if pcp is aware that pt is allergic to Lipitor and taking simvastatin. Delfina needs verbal from pcp that he is aware and to continue or not continue simvastatin. Sarina Gutierrez LPN documented in this encounter [facility] 03-06-2023 Miscellaneous Notes Formattin g of this note might be different from the original. Noted. Lewis PT calling from [facility] to report plan of care for patient and PT will visit patient 2 times a week for three weeks. PT will work with patient on functional mobility. No call back necessary unless provider has questions. Ivana Foster RN documented in this encounter [facility] 02-27-2023 Miscellaneous Notes Formattin g of this note might be different from the original. Left detailed vm on identified vm with provider's message below. Okay for orders below, PCP will follow Mckenzie Ruggiero APRN.AIR DIRECTOR Minreva from [facility] states pt was d/c'd over the weekend & they received notification today. Minerva is hoping to see pt tomorrow. Asking for OK for delay of start of care? 2. Asking if provider will follow? Pt hosp for SUKHI & history of dementia. Pt at [place]. Karime Garcia LPN documented in this encounter [facility] 02-25-2023 Discharge summary Note Date/Time February 25, 2023 12:39pm [facility] Medical Records Department [address] [place] [address] Instructions for Home/Discharge Instructions 02/25/23 1236 MR#: [id number] Acct: [id number] Name: CHRISTY FOFANA Rep #:[id number] : [...] Dr. José Miguel Frias MD ~ Signed [facility] Work Phone: 1(788) 850-616010-21-2023 Progress note Author Will Bah [facility] February 24, 2023 3:14pm Note Date/Time February 24, 2023 3 :14pm [facility] Medical Records Department [address] [place] [address] Progress Note - Hospitalist 02/24/23 1502 MR#: [id number] Acct: [id number] Name: CHRISTY FOFANA Rep #:[id number] : 1935 87 From: Will tyler DO PCP: Dr. José Miguel Frias MD Status:A DM CHARLI Location: MS3 [id number] Reason for Visit Reason for Visit: Diagnoses [...] (Auto) 69.0, Lymph % (Auto) 18.1 L, Bowie % (Auto) 9.6, Eos % (Auto) 2.5, [...] Clarity Clear, Urine pH 5.0, Ur Specific Beeler 1.015, Urine Protein Negative, Urine Glucose (UA) [...] Reading Location ID and State: 994 / Performable Tel , Service support , Pelvis X-Ray 02/23/23 18:04 IMPRESSION: Normal x-ray examination of the pelvis. Electronically Signed: Roger Nicolas MD at 19:31 EDT Reading Location ID and State: [email or web address] / Performable Tel , Service support , Cervical Spine CT 02/23/23 18:08 IMPRESSION: No acute fracture or subluxation. Electronically Signed: Roger Nicolas MD at 19:59 EDT Reading Location ID and State: [email or web address] / Performable Tel , Service support , Chest X-Ray 02/23/23 19:00 IMPRESSION: Normal x-ray examination of the chest. Electronically Signed: Roger Nicolas MD at 19:30 EDT Reading Location ID and State: 994 / Performable Tel , Service support , Physical Exam [...] hypertension, hypothyroidism and depression who presented to [facility] ED on 02/23/2023 after a fall. 1. Fall, debility Patient resides in memory care unit as noted below. Accompanied by son and [id number] on admission. Had reportedly fallen 3 times [...] Resides in the memory care unit at [facility]. PT/OT/case management following as above, okay for [...] 35 minutes. Charges/Coding Visit Charges Inpatient E&M: 15753 Subs Hosp L2 02/24/23 4237 <Electronically signed by Will Bah DO> Cosigner Signature (if applicable): CC: ~ Signed [facility] Work Phone: 1(657) 251-895810-21-2023 History and physical note Author Jhonathan Londono [facility] February 24, 2023 4:36am Note Date/Time February 23, 2023 9 :13pm [facility] Medical Records Department [address] [place] [address] H&P Exam - Hospitalist 02/23/232112 MR#: [id number] Acct: [id number] Name: CHRISTY FOFANA Rep #:[id number] : 1935 87 From: Jhonathan Heart PCP: Dr. José Miguel Frias MD Status:A DM CHARLI Location: [facility] ZN935-5 HPI - General General Date of Admission: 02/23/23 Date of Service: 02/23/23 Chief Complaint: Recurrent fall, generalized weakness and lower back pain HPI Narrative CHRISTY FOFANA, is a 87 F with multiple comorbidities brought to ED by EMS from assisted living [facility]. Patient is accompanied by her daughter and [...] She recently had influenza and pneumonia shot. [facility] Medical History Anxiety Atrial fibrillation Chest pain [...] her daughter near the bedside who is scenery builder and her son-in-law. Recently she has decreased [...] (Auto) 69.0, Lymph % (Auto) 18.1 L, Bowie % (Auto) 9.6, Eos % (Auto) 2.5, [...] Clarity Clear, Urine pH 5.0, Ur Specific Beeler 1.015, Urine Protein Negative, Urine Glucose (UA) [...] Reading Location ID and State: 994 / Performable Tel , Service support , Pelvis X-Ray 02/23/23 18:04 IMPRESSION: Normal x-ray examination of the pelvis. Electronically Signed: Roger Nicolas MD at 19:31 EDT Reading Location ID and State: [email or web address] / Performable Tel , Service support , Cervical Spine CT 02/23/23 18:08 IMPRESSION: No acute fracture or subluxation. Electronically Signed: Roger Nicolas MD at 19:59 EDT Reading Location ID and State: [email or web address] / Performable Tel , Service support , Chest X-Ray 02/23/23 19:00 IMPRESSION: Normal x-ray examination of the chest. Electronically Signed: Roger Nicolas MD at 19:30 EDT Reading Location ID and State: 994 / Performable Tel , Service support , Assessment & [...] daughter near the bedside is power of collections attorney for health. After discussion of benefits/risks [...] per the daughter Total time spent in ocax-ce-aakk encounter in discussion of advanced directive 17 [...] (Auto) 69.0, Lymph % (Auto) 18.1 L, Bowie % (Auto) 9.6, Eos % (Auto) 2.5, [...] Clarity Clear, Urine pH 5.0, Ur Specific Beeler 1.015, Urine Protein Negative, Urine Glucose (UA) [...] Dr. José Miguel Frias MD ~* Signed [facility] Work Phone: 1(980) 114-630910-21-2023 Discharge summary Author Peter Listerman [facility] February 23, 2023 10:22pm Note Date/Time February 23, 2023 6 :08pm [facility] Medical Records Department [address] [place] [address] Emergency Department Summary 02/23/23 MR#: [id number] Acct: [id number] Name: CHRISTY FOFANA Rep #:[id number] : 1935 87 From: De Quiroz MD PCP: Dr. José Miguel Frias MD Status:A DM CHARLI Location: MS3 LW488-2 HPI HPI - Fall History of Present Illness Chief Complaint: Fall Informant: family Narrative Narrative: History is from daughter and I reviewed records that came in with the patient. Patient only gives simple yes and knows at times. She presents after multiple falls. This patient does have some dementia. She is at a memory care unit at [place]. She evidently walks with a cane normally. [...] the daughter is not sure of this. [facility] Medical History (Updated 02/23/23 @ 22:22 [...] (Auto) 69.0 Lymph % (Auto) 18.1 L Bowie % (Auto) 9.6 Eos % (Auto) 2.5 [...] Clarity Clear Urine pH 5.0 Ur Specific Beeler 1.015 Urine Protein Negative Urine Glucose (UA) [...] Reading Location ID and State: 994 / Performable Tel , Service support , Pelvis X-Ray 02/23/23 18:04 IMPRESSION: Normal x-ray examination of the pelvis. Electronically Signed: Roger Nicolas MD at 19:31 EDT Reading Location ID and State: [email or web address] / Performable Tel , Service support , Cervical Spine CT 02/23/23 18:08 IMPRESSION: No acute fracture or subluxation. Electronically Signed: Roger Nicolas MD at 19:59 EDT Reading Location ID and State: 994 / Performable Tel , Service support , Chest X-Ray 02/23/23 19:00 IMPRESSION: Normal x-ray examination of the chest. Electronically Signed: Roger Nicolas MD at 19:30 EDT Reading Location ID and State: 994 / Performable Tel , Service support , EKG Initial [...] sign of acute ST elevation or depression. DE interval is a little bit long. QRS duration is normal and QTc is just slightly long. Management Discussion w/another healthcare provider: Hospitalist Discharge Plan Triage Chief Complaint: Fall ED Provider: De Quiroz Dx/Rx/DC Orders Clinical Impression: Multiple falls, Declining functional status, Dehydration Primary Care Provider: José Miguel Frias Disposition Disposition: Acute Care Hospital [facility] What to do if you have Problems For any increased pain, shortness of breath, bleeding, nausea or vomiting, chest pain, or any unexpected problems, contact your Primary Care Provider. Call [facility] ([phone]) or report to the closest Emergency Room. Call 911 if necessary. 02/23/232221 <Electronically signed by De Quiroz MD> Cosigner Signature (if applicable): CC: Dr. José Miguel Frias MD ~ Signed [facility] Work Phone: 1(434) 728-870308-23-2023 Miscellaneous Notes* Telephone Encounter - Mel Vaca LPN - 12/27/2022 3:20 PM EDT Patient daughter Anya calling back to check status of note. Went over notes below from Dr Frias with understanding. Daughter is going to call Latesha to check. * Telephone Encounter - José Miguel Frias MD - 12/27/2022 2:18 PM EDT Faxed order for cephalexin. * Telephone Encounter - Ivana Fosetr RN - 12/26/2022 4:39 PM EDT Daughter [...] hasn't been coming out to meals at [place] because legs are painful so shedidn't eat yesterday or so far today. Patient is tolerating fluids if given. Anya asking if provider would be willing to order an antibiotic such as Keflex for bilateral lower legs and if so asking that it be sent to [facility] [place]. Anya requests call back at [phone]. Anya reports [place] was going to fax office as well but wanted to monitor legs for a couple ofday. Please review and advise, Ivana Foster, MELCHOR [facility] History of Present illness Narrative* José Miguel Frias MD - 12/22/2022 3:54 PM EDT This note was created using News360riter. Subjective Patient presents with: Recheck Christy Fofana [...] José Miguel Frias MD [facility] Miscellaneous Notes* Telephone Encounter - Christy Yin LPN - 11/29/2022 4:01 PM EDT Per fax from pharmacy refills needed. Last seen ROLLER MILL OPERATOR 10/31/22. Next appt is 12/22/22 with pcp. [facility] History of Present illness Narrative* [...] prn Nestor Hughes DPM Podiatry [address] [facility] [address] Dept: [phone] Dept * Elsy Clifton RN - 11/22/2022 [...] bilateral feet are long. Patient is from [place] and per family they are supposed to trim her nails,but they don't. [facility] Miscellaneous Notes* Telephone Encounter - José Miguel Frias MD - 10/31/2022 6:17 PM EDT Patient seen by [facility]. * Telephone Encounter - Cornelia Lane RN - 10/31/2022 1:31 PM EDT Patient's daughter call upset. Patient's bilateral feet have been more swollen the last couple of days. Patient has had issues walking because feet are so painful. One of patient's big toes is black and blue. Patient had asked longterm staff to look at it last night [...] this afternoon to have toe assessed. 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 [facility] Work Phone: 1(782) 312-898906-27-2023 Instructions* Patient Instructions* Nedra Cheema APRN.CNS - [...] ordered. Take with food documented in this encounterW[facility]06-[facility]23 History of Present illness Narrative* [...] Notes nailcare is to be done a [place] but appears may not be. Review of [...] Level: 3 - Low documented in this encounterW[facility]06-[facility]23 History of Present illness Narrative* [...] Gap or Scheduling/Wellness visits Payer: Payor: [employer] [facility] / Plan: [employer]O MED[employer]ANITA ACCESS / Product Type: PPO / Care Gap Reviewed:: Annual Wellness visit Follow-up appointment Reminder: Reminder note to check Health Maintenance for items below Health Maintenance items due: ADVANCE DIRECTIVE DISCUSSION Never done Navigation Signature: Bello Caba October 05, 2022 10:49 AM documented in this encounterW[facility]23 History of Present illness Narrative* José Miguel Frias MD - 09/15/2022 4:53 PM EDT This note was created using I-Stand. Subjective Christy Fofana is a 87 year old female was here with her daughter for follow up of cellulitis of both legs. Erythema and swelling were better. She finished cephalexin. TAC was being applied. Compression stockings prescription was printed, but there was a message that this needed to be sent to the [facility] pharmacy. Prescription was also needed for Tylenol standing order for chronic back pain just ordered via fax. F She was now seen at the [facility] by a mental health provider group, [...] José Miguel Frias MD documented in this encounter[facility] History of Present illness Narrative* Mckenzie Older, PROCESS IMPROVEMENT MANAGER.AIR DIRECTOR - 09/04/2022 1:54 PM EDT CC: Patient [...] plan. Mckenzie Ruggiero APRN.CNP documented in this encounterW[facility]oster [facility]04-11-2023 Miscellaneous Notes* Telephone Encounter - [...] settle down. Please advise documented in this encounterW[facility]03-30-2023 Instructions* Patient Instructions* José Miguel Frias MD - 08/03/2022 2:50 PM EDT FASTING LABS TODAY IN OUR LAB. documented in this encounterWooster [facility] Hospital03-30-2023 History of Present illness Narrative* José Miguel Frias MD - 08/03/2022 2:44 PM EDT This note was created using Memeter. Subjective Christy Fofana is a 87 year [...] that patient will be staying here in [place]. Fasting labs were not drawn at the [facility] is fasting today and will have these done here today. José Miguel Frias MD documented in this encounterWooster [facility] Hospital03-29-2023 Miscellaneous Notes* Telephone Encounter - [...] discontinue Zoloft. Requesting it be faxed to [phone] today. Ivana Foster RN * Telephone Encounter - Christy Yin LPN - 08/02/2022 10:56 AM EDT This info was relayed to Latesha. Updated admission forms for new facility in [place]. Info called to Anya. She would like [...] like to have an answer today. The longterm told her they can not hold the doctor's medication Zoloft with out an order to stop it . Please review and advise daughter and [facility]. Daughter feels what's is going on is because of the Zoloft. It is the only thing thatis new. Rash per daughter was severe along with what she was doing. Sandhya Payne LPN * Telephone Encounter - Sarina Gutierrez LPN - 08/01/2022 4:51 PM EDT Pt's daughter calls to report she saw pt Sun 07/30 at [facility] and pt was extremely agitated but otherwise ok. Daughter reports today pt is very confused stating she does not live at [facility]. Daughter reports pt is hallucinating saying she [...] back. Sarina Gutierrez LPN documented in this encounterWooster [facility] Hospital03-29-2023 Miscellaneous Notes* Telephone Encounter - Christy Yin LPN - 08/02/2022 10:19 AM EDT Pcp completed admission forms from facility in [place]. They will be in medical records for shrimp picker. * Telephone Encounter - Mikal Elliott Ma - 08/01/2022 4:32 PM EDT Sarina Gutierrez LPN 4:06 PM Note Lucidna nurse with [facility] returns call for results from tb lab and Covid test. Cory reportslevi called them earlier today asking for results from 's office. Do not see TE for this. Cory reports tb lab is still in process at [facility]. Cory was advised it could be a [...] all in agreement to transfer pt to [facility]. Charo let Thuy Rich know when completed she will notify Sandy. Wanting to pick this up next week. Call to Latesha requesting the test to be complete today or tomorrow. * Telephone Encounter - José Miguel Frias MD - 07/26/2022 6:34 PM EDT Patient seen today with daughter Anya Valenzueal. She will inform local son Paresh of update on potential relocation, and they were encouraged to come to a consensus. Forms for [place] partly completed, but I realized screening for [...] to give paperwork regarding the move to [place] to her. Stating that sister is not aware of move. Prashantmargarita indicates she and her brother Joel have the POA. She can be called at [phone] at Noon if possible. States that we [...] team ok to continue corresponding with patients scenery builder/emergencycontact (Lovely) until we have documentation otherwise. 07/26/22: Called Lovely to ask about medical POA and she stated it was herself and Joel. She didn't have the paperwork, Joel did. I informed her we are receiving contradicting information and we needed someone to provide us actual documentation. We also have paperwork for an admission to a [facility]. Lovely was unaware of this paperwork. [...] Sandy) are wanting to move pt to [facility] living. This move will happen in the beginning of August. They are asking that this not be mentioned to Daughter Joan they brings her to the appt. They still want the appt 07/26/22. Please review admission forms. When completed call Sandy back and they can decide how they want to get the paperwork. They are coming to [place] at the end of this move to [...] patient contact not to be informed? Consult Carpet Installation Specialist. * Telephone Encounter - Eliza Adame Pss - 07/12/2022 8:24 AM EST Daughter from [place] sending paperwork and POA forms to Dr. Frias to fill out. Family is moving patient to [place]. Family asked not to mention this to daughter Hammad they haven't informed her of the move. documented in this encounterWooster [facility] Hospital03-28-2023 Miscellaneous Notes* Telephone Encounter - Kaye Leon RN - 08/01/2022 5:38 PM EDT Cory HORTON calling for Dr. José Miguel Frias. Cory has concerns about possible medication side effects including hallucinations. Conferenced Cory Pereyra for affiliate line paging. [phone] option #1 documented in this encounterWooster [facility] Hospital03-28-2023 Miscellaneous Notes* Telephone Encounter - Mikal Elliott Ma - 08/01/2022 4:33 PM EDT See phone note dated 07/13/2031. Closing this encounter. * Telephone Encounter - Sarina Gutierrez LPN - 08/01/2022 4:03 PM EDT Lucinda nurse with [facility] returns call for results from tb lab and Covid test. Cory reportslevi called them earlier today asking for results from 's office. Do not see TE for this. Cory reports tb lab is still in process at [facility]. Cory was advised it could be a couple ofdays. Cory reports Covid PCR was not done so he did a Covid rapid test and it was neg. Sarina Gutierrez LPN documented in this encounterWooster [facility] Hospital03-27-2023 Miscellaneous Notes* Telephone Encounter - [...] daily. Breanne Boggs RN documented in this encounterWooster Community Hospital03-22-2023 History of Present illness Narrative* José Miguel Frias MD - 07/26/2022 1:10 PM EDT This note was created using News360riter. Subjective Patient presents with: 6 week follow-up Forms/letter: Possible move to other LTCF in [place] Christy Fofana is a 87 year old [...] of state children to move her to [place]. Patient and her daughter was not aware [...] José Miguel Frias MD documented in this encounterWooster [facility] Hospital03-03-2023 History of Present illness Narrative* Elsy Bedolla ([employer]) - 07/07/2022 8:07 AM EST Christy Fofana is identified through a medication adherence outreach initiative based on pharmacy claims data from [employer] (insurer) for MACIEJ medication(s) and Statin medication(s). [...] facility per call to pharmacy Elsy Bedolla ([employer]) documented in this encounterWooster [facility] Hospital02-27-2023 Miscellaneous Notes* Telephone Encounter - Elsy Rosales RN - 07/03/2022 11:39 AM EST Pt and daughter were I to see provider on 07/01/22. She was asking when provider changed patch does back to the 4.6 mg. I let her know that was on 06/28/22. She said she is going to have to go talk with the longterm to see if she was ever given [...] try again. Spoke to Maria Luisa/Nurse @ [facility], given below dosage change. She does not [...] not let her out. Pt is in [facility]. Pt was sure that her was [...] advise. Sarina Gutierrez LPN documented in this encounterWooster [facility] Hospital02-25-2023 History of Present illness Narrative* José Miguel Frias MD - 07/01/2022 11:06 AM EST This note was created using News360riter. Subjective Christy Fofana is a 87 year old female was here with her daughter. Concern was sinus congestion, and chest congestion for several days. She was supposedly tested at the [facility] for Covid and was negative. She seemed to be dyspneic at times. No fever was noted. There was a message that she had increased confusion, and this was attributed to the increased doseof rivastigmine. Daughter found out that she may not have been receiving the patch, and that the higher dose may not have been initiated yet. Daughter had to shrimp picker the ear drops from Dr. Mims as [facility] did not fill the prescription. Patienthad [...] José Miguel Frias MD documented in this encounterWooster [facility] Hospital02-08-2023 History of Present illness Narrative* José Miguel Frias MD - 06/14/2022 1:19 PM EST This note was created using NoteWriter. Subjective Patient presents with: Establish Care: From Dr. Morales Rob Christy Fofana was here with her daughter. She just lost her and was feeling somewhat down.She was admitted at [facility] in [place] last month for acute mental status change, confusion, paranoid delusion. She was diagnosed with dementia, and started on rivastigmine patch and quetiapine.She was discharged to [facility], but attending/PCP had not adjusted the [...] José Miguel Frias MD documented in this encounterW[facility] Hospital04-19-2022 Miscellaneous Notes* Telephone Encounter - [...] possible. Farhana Payne Pss documented in this encounterWooster [facility] Hospital07-01-2019 History of Past illness Narrative* [...] of this encounter (statuses as of 06/14/2022) [facility] Narrative* [...] of this encounter (statuses as of 07/02/2022) [facility] Narrative* [...] of this encounter (statuses as of 07/03/2022) [facility] Narrative* [...] of this encounter (statuses as of 07/07/2022) [facility] Narrative* [...] of this encounter (statuses as of 07/26/2022) [facility] Narrative* [...] of this encounter (statuses as of 07/31/2022) [facility] Narrative* [...] of this encounter (statuses as of 08/01/2022) [facility] Narrative* [...] of this encounter (statuses as of 08/02/2022) [facility] Narrative* [...] of this encounter (statuses as of 08/02/2022) [facility] Narrative* [...] of this encounter (statuses as of 08/03/2022) [facility] Narrative* [...] of this encounter (statuses as of 08/03/2022) [facility] Narrative* [...] of this encounter (statuses as of 08/15/2022) [facility] Narrative* [...] of this encounter (statuses as of 09/05/2022) [facility] Narrative* [...] of this encounter (statuses as of 09/16/2022) [facility] Narrative* [...] of this encounter (statuses as of 10/05/2022) [facility] Narrative* [...] of this encounter (statuses as of 11/01/2022) [facility] Narrative* [...] of this encounter (statuses as of 11/01/2022) [facility] Narrative* [...] of this encounter (statuses as of 11/07/2022) [facility] Narrative* [...] of this encounter (statuses as of 11/22/2022) [facility] Narrative* [...] of this encounter (statuses as of 11/30/2022) [facility] Narrative* [...] of this encounter (statuses as of 12/25/2022) [facility] Narrative* [...] of this encounter (statuses as of 12/27/2022) [facility] Narrative* [...] of this encounter (statuses as of 02/27/2023) [facility] N[facility]* [...] of this encounter (statuses as of 03/06/2023) [facility] Narrative* [...] of this encounter (statuses as of 03/10/2023) [facility] Narrative* [...] of this encounter (statuses as of 03/13/2023) [facility]* [...] of this encounter (statuses as of 03/14/2023) [facility]* [...] of this encounter (statuses as of 03/20/2023) [facility]* [...] of this encounter (statuses as of 03/22/2023) [facility]* [...] of this encounter (statuses as of 03/22/2023) [facility]* [...] of this encounter (statuses as of 03/23/2023) [facility]* [...] of this encounter (statuses as of 03/27/2023) [facility]* [...] of this encounter (statuses as of 04/11/2023) [facility]* [...] of this encounter (statuses as of 04/13/2023) [facility] Narr[facility]* [...] of this encounter (statuses as of 07/25/2021) [facility] Narrative* [...] of this encounter (statuses as of 08/12/2021) [facility] Narrative* [...] of this encounter (statuses as of 08/18/2021) [facility] Narrative* [...] of this encounter (statuses as of 08/24/2021) [facility] Diagnosis Medication management Encounter for long-term (current) use of other medications documented in this encounter [facility] HospitalEvalubeebe healthcare noteNo assessment information availableWGreen Cross Hospital Work Phone: Evaluation note* Diagnosis Dementia with behavioral disturbance- Primary Dementia, unspecified, with behavioral disturbance Major depressive disorder with current active episode, unspecified depression episode severity, unspecified whether recurrent Primary hypertension Unspecified essential hypertension Hypothyroidism, acquired Unspecified hypothyroidism Hyperlipidemia LDL goal <130 Other and unspecified hyperlipidemia Impacted cerumen of both ears Impacted cerumen documented in this encounter [facility]* Diagnosis Sinusitis, unspecified chronicity, unspecified location- Primary Dementia with behavioral disturbance (HCC) Dementia, unspecified, with behavioral disturbance Major depressive disorder with current active episode, unspecified depression episode severity, unspecified whether recurrent documented in this encounter [facility]* Diagnosis Dementia with behavioral disturbance (HCC)- Primary Dementia, unspecified, with behavioral disturbance Major depressive disorder with current active episode, unspecified depression episode severity, unspecified whether recurrent Venous (peripheral) insufficiency Unspecified venous (peripheral) insufficiency Primary hypertension Unspecified essential hypertension documented in this encounter [facility]* Diagnosis Dementia with behavioral disturbance (HCC)- Primary Dementia, unspecified, with behavioral disturbance Major depressive disorder with current active episode, unspecified depression episode severity, unspecified whether recurrent Seborrheic dermatitis of scalp Other seborrheic dermatitis Hypothyroidism, acquired Unspecified hypothyroidism Hyperlipidemia LDL goal <130 Other and unspecified hyperlipidemia [facility] Diagnosis Acute erythematous eruption of skin- Primary Venous insufficiency Unspecified venous (peripheral) insufficiency Bilateral lower extremity edema Edema documented in this encounter [facility]* Diagnosis Acute erythematous eruption of skin- Primary Bilateral lower extremity edema Edema Venous insufficiency Unspecified venous (peripheral) insufficiency Primary hypertension Unspecified essential hypertension DDD (degenerative disc disease), lumbar Degeneration of lumbar or lumbosacral intervertebral disc [facility]* Diagnosis Avulsion of toenail, initial encounter- Primary Injury of right great toe, initial encounter Cellulitis of great toe of right foot Cellulitis and abscess of toe, unspecified [facility]* Diagnosis Major depressive disorder with current active episode, unspecified depression episode severity, unspecified whether recurrent- Primary Dementia with behavioral disturbance (HCC) Dementia, unspecified, with behavioral disturbance [facility]* Diagnosis Traumatic avulsion of nail plate of toe, initial encounter- Primary Onychomycosis Dermatophytosis of nail Venous insufficiency Unspecified venous (peripheral) insufficiency Callus Corns and callosities documented [facility]* Diagnosis Dyspnea, unspecified type- Primary Venous (peripheral) insufficiency Unspecified venous (peripheral) insufficiency Stasis dermatitis of both legs Varicose veins of lower extremities with inflammation Dementia with behavioral disturbance (HCC) Dementia, unspecified, with behavioral disturbance History of panic attacks documented [facility] this encounter [facility]* Diagnosis Onset Date Resolution Status Declining functional status acute Dehydration acute Multiple falls acute [facility] Work Phone: Evaluation note* Diagnosis Cellulitis of lower extremity, unspecified laterality Bilateral lower extremity edema Edema documented in this encounter [facility] note* Diagnosis Major depressive disorder with current active episode, unspecified depression episode severity, unspecified whether recurrent Dementia with behavioral disturbance (HCC) Dementia, unspecified, with behavioral disturbance documented in this encounter [facility] note* Diagnosis Injury of right great toe, initial encounter documented in this encounter [facility] note* Diagnosis DDD (degenerative disc disease), lumbar Degeneration of lumbar or lumbosacral intervertebral disc Hyperlipidemia LDL goal <130 Other and unspecified hyperlipidemia Venous (peripheral) insufficiency Unspecified venous (peripheral) insufficiency documented in this encounter [facility] note* Diagnosis Dementia with behavioral disturbance (HCC) Dementia, unspecified, with behavioral disturbance [facility] (narrative[facility] Diagnostic Procedure Only (Routine) - Closed Specialty Diagnoses / Procedures Referred By Gerda noyola Referred To Contact XR IMAGING Diagnoses Injury of right great toe, initial encounter Procedures XR FOOT GENERAL 3V AP/LAT/OBL RIGHT RADEX FOOT COMPLETE MINIMUM 3 VIEWS Nedra Cheema APRN.MACHINE SPECIALIST [address] [place] [address] Xr Imaging Referral ID Status Reason Start Date Expiration Date V isits Requested Visits Authorized [id number] Closed Auto-Generate d Referral 10/31/2022 11/30/2023 1 1 * Consult, Test, Treat (Routine) - Pending Review Specialty Diagnoses / Procedures Referred By Gerda noyola Referred To Contact Podiatry Diagnoses Injury of right great toe, initial encounter Cellulitis of great toe of right foot Avulsion of toenail, initial encounter Procedures CONSULT TO PODIATRY OFFICE/OUTPATIENT [facility] 60-74 MINUTES Nedra Cheema APRN.MACHINE SPECIALIST [address] [place] [address] Referral ID Status Reason Start Date Expiration Date Visits Requested Visits Authorized [id number] Pending Review PCP Requested Referral 10/31/2022 10/31/2023 1 1 [facility] ([facility] Diagnostic Procedure Only (Routine) - Closed Specialty Diagnoses / Procedures Referred By Contac t Referred To Contact XR IMAGING Diagnoses Injury of right great toe, initial encounter Procedures XR FOOT GENERAL 3V AP/LAT/OBL RIGHT RADEX FOOT COMPLETE MINIMUM 3 VIEWS Nedra Cheema APRN.CNS [address] [place] [address] [place] [address] Referral ID Status Reason Start Date Expiration Date V isits Requested Visits Authorized [id number] Closed Auto-Generate d Referral 10/31/2022 11/30/2023 1 1 [facility] (n[facility])No reason for referral information availableWGreen Cross Hospital Work Phone: Reason for visit Narrative* Diagnostic Procedure Only (Routine) - Closed Specialty Diagnoses / Procedures Referred By Contac t Referred To Contact XR IMAGING Diagnoses Injury of right great toe, initial encounter Procedures XR FOOT GENERAL 3V AP/LAT/OBL RIGHT RADEX FOOT COMPLETE MINIMUM 3 VIEWS Nedra Cheema APRN.MACHINE SPECIALIST [address] [place] [address] [place] [address] Referral ID Status Reason Start Date Expiration Date V isits Requested Visits Authorized [id number] Closed Auto-Generate d Referral 10/31/2022 11/30/2023 1 1 [facility] Advance Directives No Advanced Directives Records FoundDocuments on File Type Date Recorded 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 March 26, 2022 8:59am Advance Directive Response Recorded Date/ Time Name of Medical Power of Database Admin ? 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 Advance Directive(s) 08/07/2022 9:32 AM Advance Directive Response Recorded Date/ Time Name of Medical Power of Database Admin SANDY VALDEZ DTR February 23, 2023 10:50pm Living Will No February 23 10:50pm Power of Database Admin Yes February 23, 2023 10:50pm Chief Complaint and Reason for Visit Chief Complaint urinary sx Chief Complaint urinary sx WOUND CHECK Chief Complaint urinary sx WOUND CHECK anxiety ASSISTED LAB WORK Chief Complaint WOUND CHECK anxiety ASSISTED LAB WORK ASSISTED LABWORK Chief Complaint anxiety ASSISTED LAB WORK ASSISTED LABWORK ASSISTED LABWORK Chief Complaint ASSISTED LAB WOR K ASSISTED LABWORK ASSISTED LABWORK ASSISTED LABWORK Chief Complaint ASSISTED LABWORK ASSISTED LABWORK ASSISTED LABWORK ASSISTED LAB WORK Chief Complaint RECURRENT FALL RECURRENT FALL RECURRENT FALL Reason for Visit Declining functional status Dehydration Multiple falls Chief Complaint Admit Date ASSISTED LAB WORK August 21, 2024 5 :00am Chief Complaint Admit Date ASSISTED LAB WORK August 21, 2024 5 :00am FALL October 06, 2024 4:47p m Chief Complaint Admit Date ASSISTED LAB WORK August 21, 2024 5 :00am ASSISTED LAB WORK September 30, 2024 9:0 0pm [...] CONSULT TO ENT José Miguel Frias MD [address] [place] [address] Referral ID Status Reason Start Date Expiration Date Visits Requested Visits Authorized [id number] Ref Not Required PCP Requested Referral 06/14/2022 06/14/2023 1 1 Specialty Diagnoses / Procedures Referred By Contac t Referred To Contact Neurology Diagnoses Dementia with behavioral disturbance Procedures CONSULT TO NEUROLOGY OFFICE/OUTPATIENT NEW HIGH MDM 60-74 MINUTES José Miguel Frias MD [address] [place] [address] Referral ID Status Reason Start Date Expiration Date Visits Requested Visits Authorized [id number] Pending Review PCP Requested Referral 06/14/2022 06/14/2023 1 1 Specialty Diagnoses / Procedures Referred By Contac t Referred To Contact Cardiology Diagnoses Dyspnea, unspecified type Procedures CONSULT TO CARDIOLOGY José Miguel Frias MD [address] [place] [address] Referral ID Status Reason Start Date Expiration Date Visits Requested Visits Authorized [id number] Ref Not Required PCP Requested Referral 12/22/2022 12/22/2023 1 1 Specialty Diagnoses / Procedures Referred By Contac t Referred To [facility] Diagnoses Dyspnea, unspecified type Procedures ECG COMPLETE ECG ROUTINE ECG W/LEAST 12 LDS W/I&R José Miguel Frias MD [address] [place] [address] [facility] [address] [place] [address] Referral ID Status Reason Start Date Expiration Date V isits Requested Visits Authorized [id number] Closed Auto-Generate d Referral 12/22/2022 12/22/2023 1 1 Summary Purpose Additional Source Comments Source Comments (unrecognize d section and content) In the event this informatio n is protected by the Federal Confidentiality of Alcohol and Drug Abuse Patient Records regulations: The Federal rules restrict any use of the information to criminally investigate or prosecute any alcohol or drug abuse patient.[facility] the event this information is protected by the Federal Confidentiality of Alcohol and Drug Abuse Patient Records regulations: The Federal rules restrict any use of the information to criminally investigate or prosecute any alcohol or drug abuse patient.[facility]In the event this information is protected by the Federal Confidentiality of Alcohol and Drug Abuse Patient Records regulations: The Federal rules restrict any use of the information to criminally investigate or prosecute any alcohol or drug abuse patient.[facility]In the event this information is protected by the Federal Confidentiality of Alcohol and Drug Abuse Patient Records regulations: The Federal rules restrict any use of the information to criminally investigate or prosecute any alcohol or drug abuse patient.[facility]In the event this information is protected by the Federal Confidentiality of Alcohol and Drug Abuse Patient Records regulations: The Federal rules restrict any use of the information to criminally investigate or prosecute any alcohol or drug abuse patient.[facility]In the event this information is protected by the Federal Confidentiality of Alcohol and Drug Abuse Patient Records regulations: The Federal rules restrict any use of the information to criminally investigate or prosecute any alcohol or drug abuse patient.[facility]In the event this information is protected by the Federal Confidentiality of Alcohol and Drug Abuse Patient Records regulations: The Federal rules restrict any use of the information to criminally investigate or prosecute any alcohol or drug abuse patient.[facility]In the event this information is protected by the Federal Confidentiality of Alcohol and Drug Abuse Patient Records regulations: The Federal rules restrict any use of the information to criminally investigate or prosecute any alcohol or drug abuse patient.[facility]In the event this information is protected by the Federal Confidentiality of Alcohol and Drug Abuse Patient Records regulations: The Federal rules restrict any use of the information to criminally investigate or prosecute any alcohol or drug abuse patient.[facility]In the event this information is protected by the Federal Confidentiality of Alcohol and Drug Abuse Patient Records regulations: The Federal rules restrict any use of the information to criminally investigate or prosecute any alcohol or drug abuse patient.[facility]In the event this information is protected by the Federal Confidentiality of Alcohol and Drug Abuse Patient Records regulations: The Federal rules restrict any use of the information to criminally investigate or prosecute any alcohol or drug abuse patient.[facility]In the event this information is protected by the Federal Confidentiality of Alcohol and Drug Abuse Patient Records regulations: The Federal rules restrict any use of the information to criminally investigate or prosecute any alcohol or drug abuse patient.[facility]In the event this information is protected by the Federal Confidentiality of Alcohol and Drug Abuse Patient Records regulations: The Federal rules restrict any use of the information to criminally investigate or prosecute any alcohol or drug abuse patient.[facility]In the event this information is protected by the Federal Confidentiality of Alcohol and Drug Abuse Patient Records regulations: The Federal rules restrict any use of the information to criminally investigate or prosecute any alcohol or drug abuse patient.[facility] HospitalIn the event this information is protected by the Federal Confidentiality of Alcohol and Drug Abuse Patient Records regulations: The Federal rules restrict any use of the information to criminally investigate or prosecute any alcohol or drug abuse patient.[facility] HospitalIn the event this information is protected by the Federal Confidentiality of Alcohol and Drug Abuse Patient Records regulations: The Federal rules restrict any use of the information to criminally investigate or prosecute any alcohol or drug abuse patient.[facility] HospitalIn the event this information is protected by the Federal Confidentiality of Alcohol and Drug Abuse Patient Records regulations: The Federal rules restrict any use of the information to criminally investigate or prosecute any alcohol or drug abuse patient.[facility] HospitalIn the event this information is protected by the Federal Confidentiality of Alcohol and Drug Abuse Patient Records regulations: The Federal rules restrict any use of the information to criminally investigate or prosecute any alcohol or drug abuse patient.[facility] HospitalIn the event this information is protected by the Federal Confidentiality of Alcohol and Drug Abuse Patient Records regulations: The Federal rules restrict any use of the information to criminally investigate or prosecute any alcohol or drug abuse patient.[facility] HospitalIn the event this information is protected by the Federal Confidentiality of Alcohol and Drug Abuse Patient Records regulations: The Federal rules restrict any use of the information to criminally investigate or prosecute any alcohol or drug abuse patient.[facility]In the event this information is protected by the Federal Confidentiality of Alcohol and Drug Abuse Patient Records regulations: The Federal rules restrict any use of the information to criminally investigate or prosecute any alcohol or drug abuse patient.[facility] HospitalIn the event this information is protected by the Federal Confidentiality of Alcohol and Drug Abuse Patient Records regulations: The Federal rules restrict any use of the information to criminally investigate or prosecute any alcohol or drug abuse patient.[facility] HospitalIn the event this information is protected by the Federal Confidentiality of Alcohol and Drug Abuse Patient Records regulations: The Federal rules restrict any use of the information to criminally investigate or prosecute any alcohol or drug abuse patient.[facility]In the event this information is protected by the Federal Confidentiality of Alcohol and Drug Abuse Patient Records regulations: The Federal rules restrict any use of the information to criminally investigate or prosecute any alcohol or drug abuse patient.[facility]In the event this information is protected by the Federal Confidentiality of Alcohol and Drug Abuse Patient Records regulations: The Federal rules restrict any use of the information to criminally investigate or prosecute any alcohol or drug abuse patient.[facility]In the event this information is protected by the Federal Confidentiality of Alcohol and Drug Abuse Patient Records regulations: The Federal rules restrict any use of the information to criminally investigate or prosecute any alcohol or drug abuse patient.[facility]In the event this information is protected by the Federal Confidentiality of Alcohol and Drug Abuse Patient Records regulations: The Federal rules restrict any use of the information to criminally investigate or prosecute any alcohol or drug abuse patient.[facility] HospitalIn the event this information is protected by the Federal Confidentiality of Alcohol and Drug Abuse Patient Records regulations: The Federal rules restrict any use of the information to criminally investigate or prosecute any alcohol or drug abuse patient.[facility] HospitalIn the event this information is protected by the Federal Confidentiality of Alcohol and Drug Abuse Patient Records regulations: The Federal rules restrict any use of the information to criminally investigate or prosecute any alcohol or drug abuse patient.[facility] HospitalIn the event this information is protected by the Federal Confidentiality of Alcohol and Drug Abuse Patient Records regulations: The Federal rules restrict any use of the information to criminally investigate or prosecute any alcohol or drug abuse patient.[facility]In the event this information is protected by the Federal Confidentiality of Alcohol and Drug Abuse Patient Records regulations: The Federal rules restrict any use of the information to criminally investigate or prosecute any alcohol or drug abuse patient.[facility]In the event this information is protected by the Federal Confidentiality of Alcohol and Drug Abuse Patient Records regulations: The Federal rules restrict any use of the information to criminally investigate or prosecute any alcohol or drug abuse patient.[facility]In the event this information is protected by the Federal Confidentiality of Alcohol and Drug Abuse Patient Records regulations: The Federal rules restrict any use of the information to criminally investigate or prosecute any alcohol or drug abuse patient.[facility] HospitalIn the event this information is protected by the Federal Confidentiality of Alcohol and Drug Abuse Patient Records regulations: The Federal rules restrict any use of the information to criminally investigate or prosecute any alcohol or drug abuse patient.[facility]In the event this information is protected by the Federal Confidentiality of Alcohol and Drug Abuse Patient Records regulations: The Federal rules restrict any use of the information to criminally investigate or prosecute any alcohol or drug abuse patient.[facility]In the event this information is protected by the Federal Confidentiality of Alcohol and Drug Abuse Patient Records regulations: The Federal rules restrict any use of the information to criminally investigate or prosecute any alcohol or drug abuse patient.[facility]In the event this information is protected by the Federal Confidentiality of Alcohol and Drug Abuse Patient Records regulations: The Federal rules restrict any use of the information to criminally investigate or prosecute any alcohol or drug abuse patient.[facility]In the event this information is protected by the Federal Confidentiality of Alcohol and Drug Abuse Patient Records regulations: The Federal rules restrict any use of the information to criminally investigate or prosecute any alcohol or drug abuse patient.[facility]In the event this information is protected by the Federal Confidentiality of Alcohol and Drug Abuse Patient Records regulations: The Federal rules restrict any use of the information to criminally investigate or prosecute any alcohol or drug abuse patient.[facility]In the event this information is protected by the Federal Confidentiality of Alcohol and Drug Abuse Patient Records regulations: The Federal rules restrict any use of the information to criminally investigate or prosecute any alcohol or drug abuse patient.[facility] HospitalIn the event this information is protected by the Federal Confidentiality of Alcohol and Drug Abuse Patient Records regulations: The Federal rules restrict any use of the information to criminally investigate or prosecute any alcohol or drug abuse patient.[facility] HospitalIn the event this information is protected by the Federal Confidentiality of Alcohol and Drug Abuse Patient Records regulations: The Federal rules restrict any use of the information to criminally investigate or prosecute any alcohol or drug abuse patient.[facility] HospitalIn the event this information is protected by the Federal Confidentiality of Alcohol and Drug Abuse Patient Records regulations: The Federal rules restrict any use of the information to criminally investigate or prosecute any alcohol or drug abuse patient.[facility] HospitalIn the event this information is protected by the Federal Confidentiality of Alcohol and Drug Abuse Patient Records regulations: The Federal rules restrict any use of the information to criminally investigate or prosecute any alcohol or drug abuse patient.[facility] HospitalIn the event this information is protected by the Federal Confidentiality of Alcohol and Drug Abuse Patient Records regulations: The Federal rules restrict any use of the information to criminally investigate or prosecute any alcohol or drug abuse patient.[facility] Reason for Visit (unrecogniz ed section and content) Reason Comments Refill Request Reason Comments Prescription Refills Reason Comments Establish Care From Dr. Morales Rob Reason Comments Established Patient X 2 days chest conge stion and cough Reason Comments behavioral change Reason Onset Date Comments Allied Health Visit 07/07/2022 Medication A dherence Outreach Reason Comments 6 week follow-up Forms/letter Possible move [facility] [place] Reason Onset Date Comments Refill Request 07/31/2022 Reason Comments Results Reason Comments Patient Update Conferenced facility CAN [employer] [facility]TER to affiliate line Reason Comments Patient Update Reason Comments Confusion Reason Comments Rash Reason Comments Medication Question Reason Comments blisters nad redneess going up rk lower legs Reason Comments Follow Up 1 WEEK Reason Onset Date Comments Population Health Navigation Outreach 10/05/2022 [facility] care gap Reason Comments Toe Pain (Big) red and inflammed Reason Comments New nail care Nail Check Reason Onset Date Comments Refill Request 11/29/2022 Reason Comments Recheck Reason Comments [facility] Plan Reason Comments [facility] PT POC Reason Comments Edema Reason Comments Medication Problem Reason Comments Release Of Medical Records Reason Comments medication allergy Reason Comments report on patient legs Reason Onset Date Comments Refill Request 03/23/2023 Reason Comments [facility] Update Reason Comments Orders Reason Onset Date Comments Refill Request 04/12/2023 Reason Onset Date Comments Population Health Navigation Outreach 08/30/2023 [facility] workbench - [facility], Care gaps, HCC gap closure - [place] [facility] Reason Onset Date Comments Population Health Navigation Outreach [facility] Care [facility], HCC gap closure - [place] [facility] Reason Onset Date Comments Population Health Navigation Outreach 12/14/2023 [facility] Work[facility] - [place] [facility] Reason Comments Patient Outreach Reason Comments request medicaiton not on current [facility] Teams (unrecognized sec tion and content) Team [...] October 06, 2024 End: October 06, 2024 Asphalt Paver Operator Relationship Specialty Start Date End Date José Miguel Frias MD [address] [place], [place] [address] PCP - General Internal Medicine 05/25/21 Asphalt Paver Operator Relationship Specialty Start Date End Date José Miguel Frias MD [address] [place], [place] [id number] PCP - General Internal Medicine 05/25/21 Team [...] Active Mary Rob MD Attending Provider Active Asphalt Paver Operator Relationship Specialty Start Date End Date José Miguel Frias MD [address] [place] [address] PCP - General Internal Medicine 06/14/22 Asphalt Paver Operator Relationship Specialty Start Date End Date José Miguel Frias MD [address] [place] [address] PCP - General Internal Medicine 06/14/22 Asphalt Paver Operator Relationship Specialty Start Date End Date José Miguel Frias MD [address] [facility] [place] [address] PCP - General Internal Medicine 06/14/22 Asphalt Paver Operator Relationship Specialty Start Date End Date José Miguel Frias MD [address] [place] [address] PCP - General Internal Medicine 06/14/22 Asphalt Paver Operator Relationship Specialty Start Date End Date José Miguel Frias MD [address] [place] [address] PCP - General Internal Medicine 06/14/22 Team [...] José Miguel VELASQUEZ MD Attending Provider Active Asphalt Paver Operator Relationship Specialty Start Date End Date José Miguel Frias MD [address] [facility] [place] [address] PCP - General Internal Medicine 06/14/22 Asphalt Paver Operator Relationship Specialty Start Date End Date José Miguel Frias MD [address] [facility] [place] [address] PCP - General Internal Medicine 06/14/22 Asphalt Paver Operator Relationship Specialty Start Date End Date José Miguel Frias MD [address] [facility] [place] [address] PCP - General Internal Medicine 06/14/22 Asphalt Paver Operator Relationship Specialty Start Date End Date José Miguel Frias MD [address] [facility] [place] [address] PCP - General Internal Medicine 06/14/22 Asphalt Paver Operator Relationship Specialty Start Date End Date José Miguel Frias MD [address] [facility] [place] [address] PCP - General Internal Medicine 06/14/22 Asphalt Paver Operator Relationship Specialty Start Date End Date José Miguel Frias MD [address] [facility] [place] [address] PCP - General Internal Medicine 06/14/22 Asphalt Paver Operator Relationship Specialty Start Date End Date José Miguel Frias MD [address] [facility] [place] [address] PCP - General Internal Medicine 06/14/22 Asphalt Paver Operator Relationship Specialty Start Date End Date José Miguel Frias MD [address] [facility] [place] [address] PCP - General Internal Medicine 06/14/22 Asphalt Paver Operator Relationship Specialty Start Date End Date José Miguel Frias MD [address] [facility] [place] [address] PCP - General Internal Medicine 06/14/22 Asphalt Paver Operator Relationship Specialty Start Date End Date José Miguel Frias MD [address] [facility] [place] [address] PCP - General Internal Medicine 06/14/22 Asphalt Paver Operator Relationship Specialty Start Date End Date José Miguel Frias MD [address] [facility] [place] [address] PCP - General Internal Medicine 06/14/22 Asphalt Paver Operator Relationship Specialty Start Date End Date José Miguel Frias MD [address] [place] [address] PCP - General Internal Medicine 06/14/22 Asphalt Paver Operator Relationship Specialty Start Date End Date José Miguel Frias MD [address] [place] [address] PCP - General Internal Medicine 06/14/22 Asphalt Paver Operator Relationship Specialty Start Date End Date José Miguel Frias MD [address] [place] [address] PCP - General Internal Medicine 06/14/22 Team [...] Will Mosteller , DO Attending Provider Active Asphalt Paver Operator Relationship Specialty Start Date End Date José Miguel Frias MD [address] [facility] [place] [address] PCP - General Internal Medicine 06/14/22 Asphalt Paver Operator Relationship Specialty Start Date End Date José Miguel Frias MD [address] [facility] [place] [address] PCP - General Internal Medicine 06/14/22 Asphalt Paver Operator Relationship Specialty Start Date End Date José Miguel Frias MD [address] [place] [address] PCP - General Internal Medicine 06/14/22 Asphalt Paver Operator Relationship Specialty Start Date End Date José Miguel Frias MD [address] [place] [address] PCP - General Internal Medicine 06/14/22 Asphalt Paver Operator Relationship Specialty Start Date End Date José Miguel Frias MD [address] [place] [address] PCP - General Internal Medicine 06/14/22 Asphalt Paver Operator Relationship Specialty Start Date End Date José Miguel Frias MD [address] [place] [address] PCP - General Internal Medicine 06/14/22 Asphalt Paver Operator Relationship Specialty Start Date End Date José Miguel Frias MD [address] [place] [address] PCP - General Internal Medicine 06/14/22 Asphalt Paver Operator Relationship Specialty Start Date End Date José Miguel Frias MD [address] [place] [address] PCP - General Internal Medicine 06/14/22 Asphalt Paver Operator Relationship Specialty Start Date End Date José Miguel Frias MD [address] [facility] [place] [address] PCP - General Internal Medicine 06/14/22 Asphalt Paver Operator Relationship Specialty Start Date End Date José Miguel Frias MD [address] [place] [address] PCP - General Internal Medicine 06/14/22 Asphalt Paver Operator Relationship Specialty Start Date End Date Emmanuel Park DO [address] [place] [address] PCP - General Family Medicine 12/19/23 Asphalt Paver Operator Relationship Specialty Start Date End Date José Miguel Frias MD [address] [place] [address] PCP - General Internal Medicine 06/14/22 12/18/23 Asphalt Paver Operator Relationship Specialty Start Date End Date Emmanuel Park DO [address] [place] [address] PCP - General Family Medicine 12/19/23 Team [...] section and content) DATE CREATED AUTHOR 04/27/2024 [facility] DATE CREATED AUTHOR AUTHOR'S ORGANIZ ATION 11/24/2024 [facility] FOR RECORDS PERTAINING TO PATIENTS WHO ARE [...] BE BASED ON THE PRIMARY CLINICAL RECORDS. [employer] [facility]. provides no warranty or guarantee of the accuracy or completeness of information in this document.
[2024-11-28 08:15] LABS: Hematocrit 35.8 % (37-47); Hemoglobin 11.6 g/dL (12.0-15.0); Mean Corp Hgb Conc 32.4 g/dL (32-36); Mean Corpuscular Volume 92.3 fL (81-99); Mean Platelet Vol. 10.1 fl (6.2-12.0); Platelet Count 199 K/mm3 (150-450); RBC Distribution Width CV 13.0 % (11.6-14.6); RBC Distribution Width SD 43.7 fl (35.1-43.9); Red Blood Count 3.88 M/mm3 (4.2-5.4); White Blood Count 6.7 K/mm3 (4.4-11.0)
[2024-11-28 08:42] LABS: Anion Gap 9 (5-15); BUN 30 mg/dL (4-19); BUN/Creat Ratio 31.7 RATIO (10-20); Calcium,Total 8.5 mg/dL (7.6-11.0); Carbon Dioxide 25.9 mmol/L (21.0-32.0); Chloride 105 mmol/L (98-108); Glucose 100 mg/dL (70-99); Potassium 4.3 mmol/L (3.3-5.1)
== END ==
LOC: OLS.BROOKB 05:00
PROVIDERS: PCP Internal Medicine; Visit Provider Family Medicine
DX: N39.0 Urinary tract infection, site not specified (principal); R53.83 Other fatigue
CPT/HCPCS: 36415; 80048; 85027

== ENCOUNTER → 2024-12-11 | Outpatient (REF) | payer MEDICARE, SELFPAY ==
[2024-12-12 10:11] LABS: Color, Urine Yellow (Yellow); Glucose, Dipstick Normal (Normal); Ketone-Dipstick Negative (Negative); Leukocyte Esterase-Dipstick 100 /ul (Negative); Nitrite-Dipstick Negative (Negative); Occult Blood-Urine 25 /ul (Negative); Protein-Dipstick 15 mg/dl (Negative); Specific Gravity, Urine 1.015 (1.002-1.030); Urine Bilirubin Dipstick Negative (Negative)
--- OUTSIDE RECORDS SUMMARY | 2024-12-12 11:19 | XMS RPT_ITS | CCD ---
Author Organization [facility] Care Team Providers Care Broadcast Director Operations Name Role Phone Marina Blanc Kulwinder Unavailable Guanaco Marina Miramontes Unavailable José Miguel Frias MD Primary Care Provider Unavailable Primary Care Provider UnavailJosé Miguel Baeza MD Primary Care Provider Dr. José Miguel Frias Primary Care Provider Dr. De Quiroz Emergency Provider Dr. Jhonathan Londono Admit Provider Dr. Jhonathan Londono Attending Provider Dr. Jhonathan oLndono Other Provider Dr. Will Bah Attending Provider [phone] Dr. Will Bah Other Provider Jsoé Miguel Frias MD Primary Care Provider Emmanuel Park DO Primary Care Provider José Miguel Frias MD Primary Care Provider [phone] JOSÉ MIGUEL FRIAS Primary Care Unavailable MCKENZIE FUNK Attending Unavailable Dr. oJsé Miguel Frias MD Primary Care Provider Dr. Emmanuel Park MD Attending Provider Unavail able Provider, Ed Physician Emergency Provider Paola elam Provider, Ed Physician Attending Provider Emmanuel Kamara Attending Unavailable José Miguel Frias Primary Care Unavailable Provider, Ed Physician Attending Unavailab le Frias, José Miguel Primary Care Unavailable Ellis Avila Attending Unavailable Frias, José Miguel Primary Care Unavailable Frias, José Miguel Primary Care Unavailable Park OLS, Emmanuel Attending Unavailable Frias, José Miguel Primary Care Unavailable Park OLS, Emmanuel Attending Unavailable Frias, José Miguel Primary Care Unavailable Park OLS, Emmanuel Attending Unavailable Park OLS, Emmanuel Attending Unavailable Park OLS, Emmanuel Attending Unavailable Park OLS, Emmanuel Attending Unavailable Park OLS, Emmanuel Referring Unavailable Frias, José Miguel Primary Care Unavailable Park OLS, Emmanuel Attending Unavailable Park OLS, Emmanuel Referring Unavailable Frias, José Miguel Primary Care Unavailable Park OLS, Emmanuel Attending Unavailable Park OLS, Emmanuel Attending Unavailable Frias, José Miguel Primary Care Unavailable Park OLS, Emmanuel Attending Unavailable Park OLS, Emmanuel Attending Unavailable Frias, José Miguel Primary Care Unavailable Allergies Allergy Classification Reported Allergen(s) Allergy Type Date of Onset Reaction(s) Facility (2 sources) atorvastatin Drug Allergy 2 Muscle aching [facility] Work Phone: [phone] (20 sources) Clindamycin; Translations: [CLINDAMYCIN] Drug Allergy 9 Diarrhea [facility] Work Phone: [phone] (2 sources) HYDROmorphone Drug Allergy 2 [facility] Work Phone: [phone] (20 sources) Morphine; Translations: [MORPHINE] Drug Allergy 5 Vomiting [facility] Work Phone: [phone] (2 sources) Penicillin Drug Allergy 2 [facility] Work Phone: [phone] (20 sources) Potassium; Translations: [POTASSIUM] Drug Allergy 8 Diarrhea [facility] Work Phone: [phone] (2 sources) Sulfonamides (Antibiotic) drug allergy 2 Rash [facility] Work Phone: [phone] (20 sources) Tetracycline; Translations: [TETRACYCLINE] Drug Allergy 5 Vomiting [facility] Work Phone: [phone] (2 sources) DILAUDEN drug allergy 2 Vomitting, dizziness [facility] Work Phone: (20 sources) Amoxicillin / Clavulanate; Translations: [AMOXICILLIN-POT CLAVULANATE] Drug Allergy 0 Diarrhea [facility] (20 sources) atorvastatin; Translations: [ATORVASTATIN CALCIUM] Drug Allergy 6 Diarrhea [facility] (20 sources) Doxycycline; Translations: [DOXYCYCLINE MONOHYDRATE] Drug Allergy 7 GI Upset [facility] (20 sources) HYDROmorphone; Translations: [HYDROMORPHONE (BULK)] Drug Allergy 6 [facility] Work Phone: (20 sources) Lisinopril; Translations: [LISINOPRIL] Drug Allergy 9 [facility] (5 sources) Penicillins; Translations: [PENICILLINS] Propensity to adverse reactions 5 [facility] Work Phone: (20 sources) Procaine; Translations: [PROCAINE] Drug Allergy 1 Mental Status Change [facility] Work Phone: Comment on above: starts crying and l aughing (20 sources) Sulfonamides (Antibiotic); Translations: [SULFA (SULFONAMIDE ANTIBIOTICS)] Propensity to adverse reactions 7 Hives [facility] Work Phone: (12 sources) HYDROmorphone; Translations: [hydromorphone HCl] Drug Allergy 2 Vomiting [facility] (11 sources) Penicillins [facility]ergy to substance [facility] (11 sources) Sulfonamides (Antibiotic) Allergy to substance 2 [facility] (20 sources) Penicillins Propensity to adverse reactions 5 [facility] Work Phone: (14 sources) Latex; Translations: [LATEX] Drug Allergy 3 Other: See Comments [facility] Work Phone: (1 source) atorvastatin Drug Allergy 5 [facility] Repository (1 source) Penicillins Drug allergy (disorder) 5 [facility] (1 source) Procaine Drug Allergy 5 [facility] (1 source) Sulfonamides (Antibiotic) Drug allergy (disorder) 5 [facility] Repository Medications Current Medications Medication Drug Class(es) [...] mg/ml topical cream (6 sources) Corticosteroid Start: 024 betamethasone dipropionate, augmented (DIPROLENE) 0.05 % cream Apply to bilateral lower legs twice a day for two weeks. Then use as needed for any flare ups (twice a day for two weeks) 50 g 2 05/29/2023 Active cephalexin 500 mg oral capsule (20 sources) Cephalosporin Antibacterial Start: 023 End: 023 take 1 capsule by mouth four times [...] once daily. Take 1 capsule by mo uth once daily. Per psychiatry. furosemide 20 mg oral tablet (15 sources) Loop Diuretic Start: 04-11-2024 take 1 tablet by mouth once Furosemide 20 mg tablet Active 20 mg PO every Sunday, , Th, Sat April 11, 2024 1:00am Start: 05-29-2023 [...] Start: 03-09-2023 take 1 tablet by aubrey th once daily at breakfast furosemide (LASIX) 20 mg tablet Indications: Cellulitis of lower extremity, unspecified laterality , Bilateral lower extremity edema Take 1 tablet by mouth once daily. with breakfast 3 tablet 0 03/09/2023 Active Comment on above: Take 1 tablet by aubrey th once daily. with breakfast hydrOXYzine hydrochloride 25 [...] as needed. Take 1 capsule by mo [facility] [place] three times daily as needed for anxiety. Take 1 tablet by aubrey every afternoon. Per Psych. levothyroxine sodium 0.088 mg oral tablet (20 sources) l-Thyroxine Start: 8 take 1 tablet by mouth once daily Levothyroxine 88 mcg tablet Active 88 ug PO daily November 21, 2017 12:00am Start: 05-23-2011 take 1 tablet by aubrey th once daily LEVOTHYROXINE SODIUM 100 MCG TABS One tablet by mouth daily LEVOTHYROXINE SODIUM [id number] Gregoria Diaz Start: 05-23-2011 take 1 tablet by aubrey th once daily LEVOTHYROXINE SODIUM 88 MCG TABS One tablet by mouth daily LEVOTHYROXINE SODIUM [id number] Gutierrez Tolbert MD Comment on above: TAKE [...] oral tablet (20 sources) Atypical Antipsychotic Start: 3 End: take 1 tablet by mouth twice [...] tablet (15 sources) Aldosterone Antagonist Start: 04-27-20 take 1 tablet by mouth once daily [...] 5-500 MG TABS as needed HYDROCODONE-ACETAMI NOPHEN [id number] Gutierrez Tolbert MD [id number] 200 actuat albuterol 0.09 mg/actuat metered dose [...] tablet by mouth twice daily CALCIUM CARBONATE [id number] Gutierrez Tolbert MD chlorthalidone 25 mg oral [...] One tablet by mouth daily CITALOPRAM HYDROBROMIDE [id number] Gutierrez Tolbert MD Start: 02-23-2012 End: 10-02-2013 take 1 tablet by mouth once daily CELEXA 20 MG TABS One tablet by mouth daily CITALOPRAM HYDROBROMIDE [id number] Gutierrez Tolbert MD doxycycline monohydrate 100 mg [...] by mouth daily OMEGA-3 FATTY ACIDS CAPS [id number] Gutierrez Tolbert MD Start: 05-23-2011 take 1 tablet by aubrey th once daily FISH OIL CAPS One tablet by mouth daily OMEGA-3 FATTY ACIDS CAPS [id number] Gregoria Diaz hydroCHLOROthiazide 25 mg oral tablet [...] TABS One tablet by mouth daily HYDROCHLOROTHIAZIDE [id number] Gutierrez Tolbert MD Comment on above: Take 1 capsule by mo [facility] [place] once daily. Take 1 tablet by aubrey [...] on above: Take 1 capsule by mo [facility] [place] four times daily as needed. Take 2 [...] Start: 05-25-2011 take 1 tablet by aubrey once daily COZAAR 50 MG TABS One tablet by mouth daily LOSARTAN POTASSIUM [id number] Gutierrez Tolbert MD Comment on above: take [...] 12.5 MG TABS as needed MECLIZINE HCL [id number] Gutierrez Tolbert MD Start: 11-18-2013 End: 02-23-2023 take 1 tablet by mouth once daily as needed Meclizine 12.5 MG tablet Discontinued 12.5 mg PO DAILY NEEDED as needed for Vertigo November 18, 2013 12:00am February 23, 2023 10:01pm Comment on above: Take 1 tablet by [facility] every 6 hours as needed (dizziness). mometasone [...] One tablet by mouth daily MULTIPLE VITAMIN [id number] Gregoria iDaz mupirocin 0.02 mg/mg topical ointment (6 sources) [...] Comment on above: Take 1 tablet by [facility] twice daily as needed for Pain. Take with food. potassium chloride 8 meq extended release oral capsule (1 source) Start: 03-16-20 End: 03-20-20 23 take 1 capsule by mouth once daily potassium chloride SR (MICRO-K) 8 mEq cpER Take 1 capsule by mouth once daily. 30 capsule 0 03/16/2023 03/20/2023 Discontinued Comment on above: Take 1 capsule by mo [facility] [place] once daily. sertraline 50 mg oral tablet [...] 1 tablet by aubrey th once daily. triamcinolone acetonide 1 mg/ml topical [...] 0.1 % CREA as directed TRIAMCINOLONE ACETONIDE [id number] Gutierrez Tolbert MD Start: 02-22-2017 TRIAMCINOLONE ACETONIDE 0.1 % PSTE as directed TRIAMCINOLONE ACETONIDE [id number] Gutierrez Tolbert MD Comment on above: Apply [...] TABS One tablet by mouth daily VALSARTAN [id number] Karime Franks RN Problems Active Problems Problem [...] disorder] Onset: 05-23-2011 Resolved: 01-04-2015 12-30-2015 Chronic Malaise and fatigue (8 sources) Decline in functional status; Translations: [Other malaise] Onset: 04-04-2024 02-23-2023 Episodic Mood disorders (20 sources) Major depressive disorder; Translations: [Major depressive disorder, single episode, unspecified] Onset: 06-14-2022 Chronic Mycoses (1 source) Onychomycosis; Translations: [Tinea unguium] 11-22-2022 Episodic Open wounds of extremities (2 sources) Avulsion of toenail; Translations: [Unspecified open wound of unspecified toe(s) with damage to nail, initial encounter] Episodic Other aftercare (1 source) Patient encounter status; Translations: [Other nursing home (current) drug therapy] Episodic Other connective [...] medications] Onset: 10-10-2013 10-10-2013 Urinary tract infections (2 sources) Urinary tract infection, site not specified; Translations: [...] bleeding] Onset: 1 Resolved: 3 10-25-2010 Chronic Noninfectious gastroenteritis (7 sources) Eosinophilic colitis; Translations: [...] unspecified] Onset: 6 Resolved: 3 02-12-2013 Episodic Residual codes; unclassified (1 source) Disorientation, [...] 10-10-2024 Anion gap [Moles/Vol] 10 mmol/L 5-15 [facility] BUN/creatinine ratioOrdered By: Emmanuel Park on 10-10-2024 Urea nitrogen/Creatinine [Mass ratio] 38.1 mg/mg High 10-20 [facility] Bilirubin, totalOrdered By: Emmanuel Park on 10-10-2024 Bilirubin [Mass/Vol] 0.55 mg/dL 0.00-1.30 [facility] Carbon dioxide, total [Moles /volume] in Central venous bloodOrdered By: Emmanuel Park on 10-10-2024 CO2 [Moles/Vol] 26.1 mmol/L 21.0-32.0 [facility] Chloride assayOrdered By: Costa Park on 10-10-2024 Chloride [Moles/Vol] 103 mmol/L 98-108 [facility] Glomerular filtration rate ( GFR) estimation/1.73 sq m using serum, plasma, or whole bOrdered By: Emmanuel Park on 10-10-2024 GFR/1.73 sq M.predicted among non-blacks MDRD (S/P/Bld) [Vol rate/Area] 56 mL/min/{1.73_m2} Low >60 [facility] Comment on above: mL/min/1.73m2 CKD-EP I Creatinine Equation (2020) Hemoglobin A1c percentageOrd ered By: Emmanuel Park on 10-10-2024 HbA1c (Bld) [Mass fraction] 5.6 % <5.7 [facility] Comment on above: Normal < 5.7 % Predi abetic 5.7 - 6.4 % Diabetic >or= 6.5 % Please note range changes. Laboratory - Chemistry and C hemistry - challengeOrdered By: Emmanuel Park on 10-10-2024 AST [Catalytic activity/Vol] 18 U/L <32 [facility] Potassium measurement (mass/ volume)Ordered By: Emmanuel Park on 10-10-2024 Potassium (Unsp spec) [Mass/Vol] 4.9 mmol/L 3.3-5.1 [facility] Serum creatinine measurement (mass/volume)Ordered By: Emmanuel Park on 10-10-2024 Creatinine [Mass/Vol] 0.97 mg/dL 0.70-1.20 [facility] Serum globulin measurementOr dered By: Emmanuel Park on 10-10-2024 Globulin (S) [Mass/Vol] 2.6 g/dL 2.2-4.2 [facility] Serum glucose measurement (m ass/volume)Ordered By: Emmanuel Park on 10-10-2024 Glucose [Mass/Vol] 85 mg/dL 70-99 [facility] Serum or plasma alanine johnson otransferase (ALT) measurementOrdered By: Emmanuel Park on 10-10-2024 ALT [Catalytic activity/Vol] 11 U/L <35 [facility] Serum or plasma albumin jalil urement (mass/volume)Ordered By: Emmanuel Park on 10-10-2024 Albumin [Mass/Vol] 4.0 g/dL 3.4-4.8 [facility] Serum or plasma albumin/glob ulin mass ratioOrdered By: Emmanuel Park on 10-10-2024 Albumin/Globulin [Mass ratio] 1.5 {ratio} 0.9-2.4 [facility] Serum or plasma alkaline jama sphatase measurementOrdered By: Emmanuel Park on 10-10-2024 ALP [Catalytic activity/Vol] 84 U/L 35-104 [facility] Serum or plasma calcium jalil urement (mass/volume)Ordered By: Emmanuel Park on 10-10-2024 Calcium [Mass/Vol] 9.4 mg/dL 7.6-11.0 [facility] Serum or plasma urea nitroge n measurement (mass/volume)Ordered By: Emmanuel Park on 10-10-2024 Urea nitrogen [Mass/Vol] 37 mg/dL High 4-19 [facility] Sodium levelOrdered By: Harlan Park on 10-10-2024 Sodium [Moles/Vol] 139 mmol/L 133-145 [facility] TSH DL <= 0.005 mIU/L QnOrde red By: Emmanuel Park on 10-10-2024 TSH Qn 1.110 uIU/mL 0.300-4.20 0 [facility] ThyroxineOrdered By: Emmanuel camacho on 10-10-2024 T4 [Mass/Vol] 6.1 ug/dL 4.8-13.9 [facility] Total proteinOrdered By: Mami Park on 10-10-2024 Protein [Mass/Vol] 6.6 g/dL 5.9-8.4 [facility] Brain/Head without Contrasto n 10-06-2024 Brain/Head without Contrast [facility] [address] [place] [address] Brain/Head without Contrast MR#: [id number] Acct: [id number] Name: CHRISTY FOFANA Rep #: [id number] : 1935 F 89 From: Hayden Ferreira MD PCP: Dr. José Miguel Frias MD Status: PRE ER Study: Brain/Head without Contrast Date of Exam: 07/01 Exam# [id number] Ordering Dr: Lc Lo MD PROCEDURE: BRAIN/HEAD [...] IMPRESSION: No acute intracranial abnormality. Reading Location: [id number] CC: Dr. Lc Lo MD; Dr. José Miguel Frias MD Certified Drug Counselor: Signed Normal [facility] Bilirubin Test strip Ql (U)O rdered By: Emmanuel Park on 09-30-2024 Bilirubin Ql (U) Negative Negative [facility] Ketones Test strip Ql (U)Ord ered By: Emmanuel Park on 09-30-2024 Ketones Ql (U) Negative Negative [facility] Microscopic analysis of urin e for red blood cells (RBC)Ordered By: Emmanuel Park on 09-30-2024 Microscopic analysis of urine for red blood cells (RBC) 0 SEEN /hpf 0-5 [facility] Mucus LM Ql (Urine sed)Order ed By: Emmanuel Park on 09-30-2024 Mucus Ql (Urine sed) 0 SEEN /hpf [facility] Nitrite Test strip Ql (U)Ord ered By: Emmanuel aPrk on 09-30-2024 Nitrite Ql (U) Negative Negative [facility] Protein Test strip Ql (U)Ord ered By: Emmanuel Park on 09-30-2024 Protein Ql (U) 15 mg/dl High Negative [facility] Squamous epithelial cells de tection in urine sediment by light microscopyOrdered By: Emmanuel Park on 05-27-2025 Epithelial cells.squamous LM Ql (Urine sed) 0-5 SEEN /hpf 5-10 [facility] Urine clarityOrdered By: Mami Park on 09-30-2024 Clarity (U) Clear Clear [facility] Urine color determinationOrd ered By: Emmanuel Park on 09-30-2024 Color (U) Yellow Yellow [facility] Urine cultureOrdered By: Mami Park on 09-30-2024 Bacteria identified Cx Nom (U) Positive Abnormal [facility] Urine glucose detectionOrder ed By: Emmanuel Park on 09-30-2024 Glucose Ql (U) Normal mg/dl Normal [facility] Urine leukocyte esterase det ection by dipstickOrdered By: Emmanuel Park on 09-30-2024 Leukocyte esterase Test strip Ql (U) Negative Negative [facility] Urine pHOrdered By: Emmanuel mora on 09-30-2024 pH (U) 6.0 [pH] 5.0 - 8.0 [facility] Urine sediment bacteria coun t by microscopy (number/high power field)Ordered By: Emmanuel Park on 09-30-2024 Bacteria LM.HPF (Urine sed) [#/Area] 0 /[HPF] None Seen [facility] Urine specific gravity measu rementOrdered By: Emmaunel Park on 09-30-2024 Specific gravity (U) [Rel density] 1.020 1.002-1.03 0 [facility] Urine urobilinogen measureme ntOrdered By: Emmanuel Park on 09-30-2024 Urobilinogen Ql (U) Normal mg/dl Normal [facility] White blood cell countOrdere d By: Emmanuel Park on 09-30-2024 White blood cell count 0-5 SEEN /hpf 0-5 [facility] Anion gap in Serum or Plasma Ordered By: Emmanuel Park on 08-21-2024 Anion gap [Moles/Vol] 9 mmol/L 5-15 [facility] BUN/creatinine ratioOrdered By: Emmanuel Park on 08-21-2024 Urea nitrogen/Creatinine [Mass ratio] 28.9 mg/mg High 10-20 [facility] Bilirubin, totalOrdered By: Emmanuel Park on 08-21-2024 Bilirubin [Mass/Vol] 0.48 mg/dL 0.00-1.30 [facility] Carbon dioxide, total [Moles /volume] in Central venous bloodOrdered By: Emmanuel Park on 08-21-2024 CO2 [Moles/Vol] 25.6 mmol/L 21.0-32.0 [facility] Chloride assayOrdered By: Costa Park on 08-21-2024 Chloride [Moles/Vol] 105 mmol/L 98-108 [facility] Glomerular filtration rate ( GFR) estimation/1.73 sq m using serum, plasma, or whole bOrdered By: Emmanuel Park on 08-21-2024 GFR/1.73 sq M.predicted among non-blacks MDRD (S/P/Bld) [Vol rate/Area] 69 mL/min/{1.73_m2} >60 [facility] Comment on above: mL/min/1.73m2 CKD-EP I Creatinine Equation (2020) Laboratory - Chemistry and C hemistry - challengeOrdered By: Emmanuel Park on 08-21-2024 AST [Catalytic activity/Vol] 19 U/L <32 [facility] Potassium measurement (mass/ volume)Ordered By: Emmanuel Park on 08-21-2024 Potassium (Unsp spec) [Mass/Vol] 4.1 mmol/L 3.3-5.1 [facility] Serum creatinine measurement (mass/volume)Ordered By: Emmanuel Park on 08-21-2024 Creatinine [Mass/Vol] 0.82 mg/dL 0.70-1.20 [facility] Serum globulin measurementOr dered By: Emmanuel Park on 08-21-2024 Globulin (S) [Mass/Vol] 2.4 g/dL 2.2-4.2 [facility] Serum glucose measurement (m ass/volume)Ordered By: Emmanuel Park on 08-21-2024 Glucose [Mass/Vol] 80 mg/dL 70-99 [facility] Serum or plasma alanine johnson otransferase (ALT) measurementOrdered By: Emmanuel Park on 08-21-2024 ALT [Catalytic activity/Vol] 12 U/L <35 [facility] Serum or plasma albumin jalil urement (mass/volume)Ordered By: Emmanuel Park on 08-21-2024 Albumin [Mass/Vol] 3.6 g/dL 3.4-4.8 [facility] Serum or plasma albumin/glob ulin mass ratioOrdered By: Emmanuel Park on 08-21-2024 Albumin/Globulin [Mass ratio] 1.5 {ratio} 0.9-2.4 [facility] Serum or plasma alkaline jama sphatase measurementOrdered By: Emmanuel Park on 08-21-2024 ALP [Catalytic activity/Vol] 75 U/L 35-104 [facility] Serum or plasma calcium jalil urement (mass/volume)Ordered By: Emmanuel Park on 08-21-2024 Calcium [Mass/Vol] 8.8 mg/dL 7.6-11.0 [facility] Serum or plasma urea nitroge n measurement (mass/volume)Ordered By: Emmanuel Park on 08-21-2024 Urea nitrogen [Mass/Vol] 24 mg/dL High 4-19 [facility] Sodium levelOrdered By: Harlan Park on 08-21-2024 Sodium [Moles/Vol] 139 mmol/L 133-145 [facility] Total proteinOrdered By: Mami Park on 08-21-2024 Protein [Mass/Vol] 6.0 g/dL 5.9-8.4 [facility] CNPNon 04-23-2024 CNPN Telephone (FAMPTW) CHRISTY FOFANA ([id number]) 1935 F Date Time Provider Department 04/23/24 JOSÉ MIGUEL FRIAS During your visit today, we recorded the following information about you: Ritchie Raghav Niecy 04/23/2024 2:29 PM Signed [facility]isted [facility] is calling José Miguel Frias MD today to request a medication not on current med list: Disp Refills Start End hydrOXYzine pamoate (VISTARIL) 25 mg capsule 30 5 Patient has been identified by name and birthdate. Closing statement: Results or non-symptom based questions: Thank you for calling [facility], your call will be returned within the next business day. Niecy Dugan [facility] Delfina Hernandez MA 04/23/2024 4:08 PM Signed [...] Date Reviewed: 05/29/2023 Reviewed by: Mckenzie Funk APRN.UI [employer]X WEB DEVELOPER - Fully Assessed Reason for Visit: request [...] [I87.2] 10/28 (more content not included)... Normal [facility] Urine Cultureon 04-12-2024 URC Culture exhibits no growth. Normal [facility] Comment on above: Performed By: #### M 100.2200 #### [facility] Laboratory [address] [place], [address] 12 Lead EKGon 04-11-2024 12 Lead EKG [facility] [address] [place] [address] 12 Lead EKG 04/11/24 0610 MR#: [id number] Acct: [id number] Name: CHRISTY FOFANA Rep #: [id number] : 1935 88 From: Cory Hopper MD [...] QRS widening ( R in aVL , Michael product ) Abnormal ECG Confirmed by Cory Hopper ([id number]), editorial assistant NADEEM HINKLE ([id number]) on 04/14/2024 6:52:09 AM Referred By: Confirmed By: Cory Hopper 04/14/24 0652 Date Cory Hopper MD CC: Dr. José Miguel Frias MD; Ellis ChuchoDO tonja Signed Normal [facility] Basic Metabolic Profile (BMP )on 04-11-2024 BUN/CRE 39.7 RATIO High 10-20 [facility] Comment on above: Performed By: #### L 501.5200, L100.0100, L500.2500 #### [facility] [address] [place], [address] CA,Total 9.4 mg/dL Normal 8.5-10.1 [facility] Comment on above: Performed By: #### L 501.5200, L100.0100, L500.2500 #### [facility] [address] [place], [address] Chloride [Moles/Vol] 103 mmol/L Normal 98-107 [facility] Comment on above: Performed By: #### L 501.5200, L100.0100, L500.2500 #### [facility] [address] [place], [address] CO2 [Moles/Vol] 27.0 mmol/L Normal 21.0-32.0 [facility] Comment on above: Performed By: #### L 501.5200, L100.0100, L500.2500 #### [facility] [address] [place], [address] Creatinine [Mass/Vol] 0.96 mg/dL Normal 0.55-1.02 [facility] Comment on above: Result Comment: The validity of the calculated GFR GFRAA in patients over 70 years has not been determined. Clinical correlation is essential. Performed By: #### L 501.5200, L100.0100, L500.2500 #### [facility] [address] [place], [address] ECRCL 49.15 ml/min Normal [facility] Comment on above: Performed By: #### L 501.5200, L100.0100, L500.2500 #### [facility] [address] [place], [address] EST GFR - AA 71 mL/min Normal >60 [facility] Comment on above: Result Comment: Afri can [place] GFR Calc Performed By: #### L 501.5200, L100.0100, L500.2500 #### [facility] [address] [place], [address] GAP 7 Normal 5-15 [facility] Comment on above: Performed By: #### L 501.5200, L100.0100, L500.2500 #### [facility] [address] [place], [address] GFR/1.73 sq M.predicted among non-blacks MDRD (S/P/Bld) [Vol rate/Area] 59 mL/min/{1.73_m2} Low >60 [facility] Comment on above: Result Comment: Non- GFR Calc Performed By: #### L 501.5200, L100.0100, L500.2500 #### [facility] [address] [place], [address] Glucose [Mass/Vol] 112 mg/dL High 74-106 [facility] Comment on above: Result Comment: Fast ing Glucose result from 100 to 125 mg/dL suggests IMPAIRED HOMEOSTASIS per A.D.A. criteria. Performed By: #### L 501.5200, L100.0100, L500.2500 #### [facility] [address] [place], [address] Potassium [Moles/Vol] 4.1 mmol/L Normal 3.5-5.1 [facility] Comment on above: Performed By: #### L 501.5200, L100.0100, L500.2500 #### [facility] [address] [place], [address] Sodium [Moles/Vol] 137 mmol/L Normal 136-145 [facility] Comment on above: Performed By: #### L 501.5200, L100.0100, L500.2500 #### [facility] [address] [place], [address] Urea nitrogen [Mass/Vol] 38 mg/dL High 7-18 [facility] Comment on above: Performed By: #### L 501.5200, L100.0100, L500.2500 #### [facility] [address] [place], [address] Brain/Head without Contrasto n 04-11-2024 Brain/Head without Contrast [facility] Imaging Services [address] [place] [address] Brain/Head without Contrast MR#: [id number] Acct: [id number] Name: CHRISTY FOFANA Rep #: [id number] : 1935 F 88 From: Mario Ruvalcaba MD PCP: Dr. José Miguel Frias MD Status: REG Study: Brain/Head without Contrast Date of Exam: 10/28 Exam# [id number] Ordering Dr: Ellis Avila DO [id number] EXAM: CT HEAD WITHOUT INTRAVENOUS CONTRAST CLINICAL [...] intracranial abnormalities. 2. Age-related changes. Electronically Signed: Maroi Ruvalcaba MD at 7:21 EST , CC: Dr. José Miguel Frias MD; Ellis Avila DO Certified Drug Counselor: Signed Normal [facility] CBC W/Diff, Automatedon 12-0 Absolute Lymph 1.57 X10 3/uL Normal 0.83-4.51 [facility] Comment on above: Performed By: #### L 501.5200, L100.0100, L500.2500 #### [facility] [address] [place], [address] Absolute Neut 4.2 X10 3/uL Normal 2.0-7.7 [facility] Comment on above: Performed By: #### L 501.5200, L100.0100, L500.2500 #### [facility] [address] [place], [address] Basophils/100 WBC (Bld) 0.6 % Normal 0-1 [facility] Comment on above: Performed By: #### L 501.5200, L100.0100, L500.2500 #### [facility] [address] [place], [address] Eosinophils/100 WBC (Bld) 3.0 % Normal 0-5 [facility] Comment on above: Performed By: #### L 501.5200, L100.0100, L500.2500 #### [facility] [address] [place], [address] Erythrocyte distribution width (RBC) [Ratio] 12.9 % Normal 11.6-14.6 [facility] Comment on above: Performed By: #### L 501.5200, L100.0100, L500.2500 #### [facility] [address] [place], [address] Hematocrit (Bld) [Volume fraction] 41.4 % Normal 37-47 [facility] Comment on above: Performed By: #### L 501.5200, L100.0100, L500.2500 #### [facility] [address] [place], [address] Hemoglobin (Bld) [Mass/Vol] 13.3 g/dL Normal 12.0-15.0 [facility] Comment on above: Performed By: #### L 501.5200, L100.0100, L500.2500 #### [facility] [address] [place], [address] IG% 0.300 Normal 0.0-0.9 [facility] Comment on above: Result Comment: IG% - Immature Granulocytes (promyelocytes, myelocytes and metamyelocytes) > 1% indicates that a LEFT SHIFT is Present. Performed By: #### L 501.5200, L100.0100, L500.2500 #### [facility] [address] [place], [address] Lymphocytes/100 WBC (Bld) 23.4 % Normal 19-41 [facility] Comment on above: Performed By: #### L 501.5200, L100.0100, L500.2500 #### [facility] [address] [place], [address] MCH (RBC) [Entitic mass] 29.7 pg Normal 27.0-32.0 [facility] Comment on above: Performed By: #### L 501.5200, L100.0100, L500.2500 #### [facility] [address] [place], [address] MCHC (RBC) [Mass/Vol] 32.1 g/dL Normal 32-36 [facility] Comment on above: Performed By: #### L 501.5200, L100.0100, L500.2500 #### [facility] [address] [place], [address] MCV (RBC) [Entitic vol] 92.4 fL Normal 81-99 [facility] Comment on above: Performed By: #### L 501.5200, L100.0100, L500.2500 #### [facility] [address] [place], [address] Monocytes/100 WBC (Bld) 9.8 % Normal 0-10 [facility] Comment on above: Performed By: #### L 501.5200, L100.0100, L500.2500 #### [facility] [address] [place], [address] Neutrophils/100 WBC (Bld) 62.9 % Normal 47-70 [facility] Comment on above: Performed By: #### L 501.5200, L100.0100, L500.2500 #### [facility] [address] [place], [address] Nucleated RBC (Bld) [#/Vol] 0 10*3/uL Normal 0-5 [facility] Comment on above: Performed By: #### L 501.5200, L100.0100, L500.2500 #### [facility] [address] [place], [address] Platelet mean volume (Bld) [Entitic vol] 9.7 fL Normal 6.2-12.0 [facility] Comment on above: Performed By: #### L 501.5200, L100.0100, L500.2500 #### [facility] [address] [place], [address] Platelets (Bld) [#/Vol] 208 10*3/uL Normal 150-450 [facility] Comment on above: Performed By: #### L 501.5200, L100.0100, L500.2500 #### [facility] [address] [place], [address] RBC (Bld) [#/Vol] 4.48 10*6/uL Normal 4.2-5.4 [facility] Comment on above: Performed By: #### L 501.5200, L100.0100, L500.2500 #### [facility] [address] [place], [address] RDW SD 43.6 fl Normal 35.1-43.9 [facility] Comment on above: Performed By: #### L 501.5200, L100.0100, L500.2500 #### [facility] [address] [place], [address] WBC (Bld) [#/Vol] 6.7 10*3/uL Normal 4.4-11.0 [facility] Comment on above: Performed By: #### L 501.5200, L100.0100, L500.2500 #### [facility] [address] [place], [address] Emergency Department Summary on 04-11-2024 Emergency Department Summary [facility] Medical Records Department [address] [place] [address] Emergency Department Summary 04/11/24 MR#: [id number] Acct: [id number] Name: CHRISTY FOFANA Rep #: [id number] : 1935 88 From: Ellis Avila DO [...] because [facility] and she was not sent [...] Patient is an 88-year-old female from the custodial with past medical history of hypertension hyperlipidemia [...] worsening symptoms was sent in for evaluation [facility] Medical History Anxiety Spinal stenosis Depression Hypothyroidism [...] Never smok (more content not included)... Normal [facility] Magnesiumon 04-11-2024 Magnesium [Mass/Vol] 2.5 mg/dL Normal 1.6-2.6 [facility] Comment on above: Performed By: #### L 501.5200, L100.0100, L500.2500 #### [facility] [address] [place], [address] Urinalysis, Completeon 04-11 EPI,SQUAMOUS 0-5 SEEN Normal 5-10 [facility] Comment on above: Order Comment: BLADD ER TAP Performed By: #### L 400.0001 #### [facility] [address] [place], [address] WBC 0-5 SEEN Normal 0-5 [facility] Comment on above: Order Comment: BLADD ER TAP Performed By: #### L 400.0001 #### [facility] [address] [place], [address] BACTERIA 0 SEEN Normal None Seen [facility] Comment on above: Order Comment: BLADD ER TAP Performed By: #### L 400.0001 #### [facility] [address] [place], [address] Mucus Ql (Urine sed) 0 SEEN Normal [facility] Comment on above: Order Comment: BLADD ER TAP Performed By: #### L 400.0001 #### [facility] [address] [place], [address] RBC 0 SEEN Normal 0-5 [facility] Comment on above: Order Comment: BLADD ER TAP Performed By: #### L 400.0001 #### [facility] [address] [place], [address] [facility] (INTMWS) CHRISTY FOFANA ([id number]) 1935 F Date Time Provider Department 12/19/23 JOSÉ MIGUEL FRIAS During your visit today, we recorded the following information about you: Lina Berry LPN 12/19/2023 4:52 PM Signed [facility] NAVIGATION OUTREACH Action/FYI Reason for Outreach Care Gap/HCC or Scheduling Wellness Visits Care Gaps due: Medicare Annual Wellness Visit Patient Contacted: Patient is currently at [facility], she is seeing in-house Dr. Emmanuel [place] [...] Date Reviewed: 05/29/2023 Reviewed by: Mckenzie Funk, UPHOLSTERY DEPARTMENT SUPERVISOR.UI UX WEB DEVELOPER - Fully Assessed Reason for Visit: Patient [...] with beha (more content not included)... Normal [facility] CNOVon 05-29-2023 CNOV Office Visit (INTMWS ) CHRISTY FOFANA ([id number]) 1935 F Date Time Provider Department 05/29/23 1:00 PM MCKENZIE FUNK INTMWS During your visit today, we recorded the following information about you: Temperature Pulse Respiration Blood pressure 97.5 degrees 91/minute 18/minute 146/78 Weight 84.8 kg Mckenzie Funk, UPHOLSTERY DEPARTMENT SUPERVISOR.UI UX WEB DEVELOPER 05/29/2023 3:06 PM Signed CC: Patient presents [...] Paternal Grandm (more content not included)... Normal [facility] 05-28-2023 CNPN Telephone (INTMWS) CHRISTY FOFANA ([id number]) 1935 F Date Time Provider Department 05/28/23 JOSÉ MIGUEL FRIAS INTWS During your visit today, we recorded the following information about you: Breanne Boggs RN 05/28/2023 11:08 AM Signed Rachael, nurse at [facility] calling and asking for provider to advise on their fax they sent to PCP office on 05/25/23. Rachael reports patient's bilateral lower extremities are much worse today. Questionable cellulitis. Please advise Rachael at [facility] at [phone]. Thank you. José Miguel Frias MD 05/28/2023 12:19 PM Signed Appointment in office if possible or video at the least. Report any fever. Elsy Rosales RN 05/28/2023 1:13 PM Signed Maria Luisa at [facility] called and is notified of providers [...] unspecified [E78.00] (more content not included)... Normal [facility] Basophil percentageOrdered B y: Jhonathan Londono on 02-24-2023 Chloride [Moles/Vol] 110 mmol/L 98-107 [facility] Glucose [Mass/Vol] 80 mg/dL 74-106 [facility] Potassium [Moles/Vol] 3.4 mmol/L 3.5-5.1 [facility] Sodium [Moles/Vol] 143 mmol/L 136-145 [facility] - Chemistry and C hemistry - challengeOrdered By: Jhonathan Londono on 02-24-2023 CO2 [Moles/Vol] 26.0 mmol/L 21.0-32.0 [facility] Urea nitrogen/Creatinine [Mass ratio] 61.0 mg/mg 02-23 [facility] No Panel InformationOrdered By: Jhonathan Londono on 02-24-2023 Estimated Creatinine Clearance Calc 46.10 ml/min [facility] Estimated GFR (MDRD) Amer 76 mL/min >60 [facility] Comment on above: GFR Calc Estimated GFR (MDRD) Non-Af Amer 63 mL/min >60 [facility] Comment on above: Non- GFR Calc Thyroid Stimulating Hormone (TSH) 0.60 uIU/mL 0.358-3.74 [facility] Serum or plasma calcium jalil urement (mass/volume)Ordered By: Jhonathan Londono on 02-24-2023 Calcium [Mass/Vol] 8.4 mg/dL 8.5-10.1 [facility] Serum or plasma creatinine m easurement (mass/volume)Ordered By: Jhonathan Londono on 02-24-2023 Creatinine [Mass/Vol] 0.90 mg/dL 0.55-1.02 [facility] Comment on above: The validity of the calculated GFR & GFRAA in patients over 70 years has not been determined. Clinical correlation is essential. Serum or plasma urea nitroge n measurement (mass/volume)Ordered By: Jhonathan Londono on 02-24-2023 Urea nitrogen [Mass/Vol] 55 mg/dL 7-18 [facility] Thin prep Papanicolaou smear with manual screeningOrdered By: Jhonathan Londono on 02-24-2023 Thin prep Papanicolaou smear with manual screening 7 5-15 [facility] Absolute lymphocyte countOrd ered By: De Quiroz on 02-23-2023 Lymphocytes Auto (Unsp spec) [#/Vol] 1.15 10*3/uL 0.83-4.51 [facility] Basophil percentageOrdered B y: De Quiroz on 02-23-2023 Basophil percentage 0-5 SEEN /hpf 0-5 [facility] Basophils/100 WBC (Bld) 0.3 % 0-1 [facility] Bilirubin [Mass/Vol] 0.80 mg/dL 0.20-1.00 [facility] Comment on above: For patients on eltr ombopag therapy, use of Dimension [place] TBIL is not recommended. Eosinophils/100 WBC (Bld) 2.5 % 0-5 [facility] Neutrophils (Bld) [#/Vol] 4.4 10*3/uL 2.0-7.7 [facility] Neutrophils/100 WBC (Bld) 69.0 % 47-70 [facility] Protein [Mass/Vol] 6.8 g/dL 6.4-8.2 [facility] WBC (Bld) [#/Vol] 6.4 10*3/uL 4.4-11.0 [facility] Bilirubin Test strip Ql (U)O rdered By: De Quiroz on 02-23-2023 Bilirubin Ql (U) Negative Negative [facility] Blood erythrocytes count (nu mber/volume)Ordered By: De Quiroz on 02-23-2023 RBC (Bld) [#/Vol] 3.84 10*6/uL 4.2-5.4 [facility] Blood hemoglobin measurement (mass/volume)Ordered By: De Quiroz on 02-23-2023 Hemoglobin (Bld) [Mass/Vol] 11.6 g/dL 12.0-15.0 [facility] Blood lymphocytes/100 leukoc ytesOrdered By: De Quiroz on 02-23-2023 Lymphocytes/100 WBC (Bld) 18.1 % 19-41 [facility] Blood monocytes/100 leukocyt esOrdered By: De Quiroz on 02-23-2023 Monocytes/100 WBC (Bld) 9.6 % 0-10 [facility] Blood platelet mean volumeOr dered By: De Quiroz on 02-23-2023 Platelet mean volume (Bld) [Entitic vol] 10.1 fL 6.2-12.0 [facility] Determination of erythrocyte mean corpuscular volume (MCV)Ordered By: De Quiroz on 02-23-2023 MCV (RBC) [Entitic vol] 90.9 fL 81-99 [facility] Hematocrit Auto (Bld) [Volum e fraction]Ordered By: De Quiroz on 02-23-2023 Hematocrit (Bld) [Volume fraction] 34.9 % 37-47 [facility] Influenza virus A and B and SARS-CoV-2 (COVID-19) Ag panel - Upper respiratory specimOrdered By: De Quiroz on 02-23-2023 SARS-CoV-2 (COVID-19) RNA YOSHI+probe Ql (Resp) [facility] Ketones Test strip Ql (U)Ord ered By: De Quiroz on 02-23-2023 Ketones Ql (U) Negative Negative [facility] - Chemistry and C hemistry - challengeOrdered By: De Quiroz on 02-23-2023 ALP [Catalytic activity/Vol] 86 U/L 45-117 [facility] ALT [Catalytic activity/Vol] 26 U/L 13-56 [facility] Globulin (S) [Mass/Vol] 3.1 g/dL 2.2-4.2 [facility] - Chemistry and C hemistry - challengeOrdered By: Jhonathan Londono on 02-23-2023 Magnesium [Mass/Vol] 2.3 mg/dL 1.6-2.6 [facility] - Hematology and Cell countsOrdered By: De Quiroz on 02-23-2023 Erythrocyte distribution width (RBC) [Entitic vol] 41.9 fL 35.1-43.9 [facility] Erythrocyte distribution width (RBC) [Ratio] 12.6 % 11.6-14.6 [facility] Immature granulocytes/100 WBC (Bld) 0.500 % 0.0-0.9 [facility] Comment on above: IG% - Immature Granu locytes (promyelocytes, myelocytes and metamyelocytes) > 1% indicates that a LEFT SHIFT is Present. MCH (RBC) [Entitic mass] 30.2 pg 27.0-32.0 [facility] Nucleated RBC/100 WBC (Bld) [Ratio] 0 % 0-5 [facility] MCHC Auto (RBC) [Mass/Vol]Or dered By: De Quiroz on 02-23-2023 MCHC (RBC) [Mass/Vol] 33.2 g/dL 32-36 [facility] Mucus LM Ql (Urine sed)Order ed By: De Quiroz on 02-23-2023 Mucus Ql (Urine sed) 0 SEEN /hpf [facility] Nitrite Test strip Ql (U)Ord ered By: De Quiroz on 02-23-2023 Nitrite Ql (U) Negative Negative [facility] Platelets bldOrdered By: Juice Quiroz on 02-23-2023 Platelets (Bld) [#/Vol] 198 10*3/uL 150-450 [facility] Protein Test strip Ql (U)Ord ered By: De Quiroz on 02-23-2023 Protein Ql (U) Negative Negative [facility] Serum or plasma albumin jalil urement (mass/volume)Ordered By: De Quiroz on 02-23-2023 Albumin [Mass/Vol] 3.7 g/dL 3.2-5.0 [facility] Serum or plasma albumin/glob ulin mass ratioOrdered By: De Quiroz on 02-23-2023 Albumin/Globulin [Mass ratio] 1.2 {ratio} 0.9-2.4 [facility] Squamous epithelial cells de tection in urine sediment by light microscopyOrdered By: De Quiroz on 02-23-2023 Epithelial cells.squamous LM Ql (Urine sed) 0-5 SEEN /hpf 5-10 [facility] Thin prep Papanicolaou smear with manual screeningOrdered By: De Quiroz on 02-23-2023 Thin prep Papanicolaou smear with manual screening 31 U/L 15-37 [facility] Urine blood detectionOrdered By: De Quiroz on 02-23-2023 RBC Ql (U) Negative Negative [facility] RBC Ql (U) 0 SEEN /hpf 0-5 [facility] Urine clarityOrdered By: Juice Quiroz on 02-23-2023 Clarity (U) Clear Clear [facility] Urine color determinationOrd ered By: De Quiroz on 02-23-2023 Color (U) Yellow Yellow [facility] Urine glucose detectionOrder ed By: De Quiroz on 02-23-2023 Glucose Ql (U) Normal mg/dl Normal [facility] Urine leukocyte esterase det ection by dipstickOrdered By: De Quiroz on 02-23-2023 Leukocyte esterase Test strip Ql (U) 25 /ul Negative [facility] Urine pHOrdered By: De enamorado on 02-23-2023 pH (U) 5.0 [pH] 5.0 - 8.0 [facility] Urine sediment bacteria coun t by microscopy (number/high power field)Ordered By: De Quiroz on 02-23-2023 Bacteria LM.HPF (Urine sed) [#/Area] 0 /[HPF] None Seen [facility] Urine specific gravity measu rementOrdered By: De Quiroz on 02-23-2023 Specific gravity (U) [Rel density] 1.015 1.002-1.03 0 [facility] Urobilinogen Auto test strip Ql (U)Ordered By: De Quiroz on 02-23-2023 Urobilinogen Ql (U) Normal mg/dl Normal [facility] ECG COMPLETEon 12-25-2022 Atrial Rate 59 BPM [facility] Calculated P [place] 97 degrees [facility] Calculated R [place] -47 degrees [facility] Calculated T [place] 2 degrees [facility] P-R Interval 214 ms [facility] QRS Duration 122 ms [facility] QT Interval 506 ms [facility] QTC Calculation (Bazett) 500 ms [facility] Ventricular Rate 59 BPM [facility] Atrial Rate 53 BPM [facility] Calculated P [place] 101 degrees [facility] Calculated R [place] -48 degrees [facility] Calculated T [place] -10 degrees [facility] P-R Interval 218 ms [facility] QRS Duration 118 ms [facility] QT Interval 496 ms [facility] QTC Calculation ([place]azett) 465 ms [facility] Ventricular Rate 53 BPM [facility] XR Foot - right AP and Later al and obliqueon 11-03-2022 IMPRESSION: NO ACUTE FRACTURE IDENTIFIED SEVERE FIRST MTP JOINT DEGENERATIVE CHANGE OTHER FINDINGS DESCRIBED Certified Drug Counselor: [facility] Transcribe Date/Time: Nov 03 2022 9:04A Dictated by : TAZ MURILLO MD This examination was interpreted and the report reviewed and electronically signed by: TAZ MURILLO MD on Nov 03 2022 9:07AM [facility] DIVISION OF RADIOLOGY * * *Final Report* [...] of the foot. DIVISION OF RADIOLOGY Provider, Romario Brown - 11/03/2022 * * *Final Report* * [...] MTP JOINT DEGENERATIVE CHANGE OTHER FINDINGS DESCRIBED Certified Drug Counselor: [facility] Transcribe Date/Time: Nov 03 2022 9:04A Dictated by : TAZ MURILLO MD This examination was interpreted and the report reviewed and electronically signed by: TAZ MURILLO MD on Nov 03 2022 9:07AM EST [facility] XR Foot - right AP and Later al and obliqueOrdered By: [facility] Provider on 11-03-2022 [facility] XR Foot - right AP and Later al and obliqueon 10-31-2022 Radiology Study observation (narrative) [facility] Basophil percentageOrdered B y: José Miguel Frias on 10-18-2022 Bilirubin [Mass/Vol] 0.60 mg/dL 0.20-1.00 [facility] Comment on above: For patients on eltr ombopag therapy, use of Dimension [place] TBIL is not recommended. Chloride [Moles/Vol] 103 mmol/L 98-107 [facility] Cholesterol [Mass/Vol] 164 mg/dL <200 [facility] Comment on above: <200 mg/dL Desirable 200-240 mg/dL Borderline >240 mg/dL High Risk Glucose [Mass/Vol] 88 mg/dL 74-106 [facility] Potassium [Moles/Vol] 3.8 mmol/L 3.5-5.1 [facility] Protein [Mass/Vol] 6.9 g/dL 6.4-8.2 [facility] Sodium [Moles/Vol] 138 mmol/L 136-145 [facility] Triglyceride [Mass/Vol] 100 mg/dL <199 [facility] Comment on above: The drugs N-Acetylcy steine and Metamizole may falsely depress this assay.Serum Triglycerides Reference Interval Normal <150 mg/dL Borderline high 150 - 199 mg/dL High 200 - 499 mg/dL Very High > or = 500 mg/dL WBC (Bld) [#/Vol] 4.7 10*3/uL 4.4-11.0 [facility] Blood erythrocytes count (nu mber/volume)Ordered By: José Miguel Frias on 10-18-2022 RBC (Bld) [#/Vol] 4.51 10*6/uL 4.2-5.4 [facility] Blood hemoglobin measurement (mass/volume)Ordered By: José Miguel Frias on 10-18-2022 Hemoglobin (Bld) [Mass/Vol] 13.0 g/dL 12.0-15.0 [facility] Blood platelet mean volumeOr dered By: José Miguel Frias on 10-18-2022 Platelet mean volume (Bld) [Entitic vol] 9.5 fL 6.2-12.0 [facility] Determination of erythrocyte mean corpuscular volume (MCV)Ordered By: José Miguel Frias on 10-18-2022 MCV (RBC) [Entitic vol] 89.4 fL 81-99 [facility] Hematocrit Auto (Bld) [Volum e fraction]Ordered By: José Miguel Frias on 10-18-2022 Hematocrit (Bld) [Volume fraction] 40.3 % 37-47 [facility] Laboratory - Chemistry and C hemistry - challengeOrdered By: José Miguel Frias on 10-18-2022 ALP [Catalytic activity/Vol] 75 U/L 45-117 [facility] ALT [Catalytic activity/Vol] 23 U/L 13-56 [facility] CO2 [Moles/Vol] 29.0 mmol/L 21.0-32.0 [facility] Globulin (S) [Mass/Vol] 3.7 g/dL 2.2-4.2 [facility] Urea nitrogen/Creatinine [Mass ratio] 40.1 mg/mg 10-20 [facility] Laboratory - Hematology and Cell countsOrdered By: José Miguel Frias on 10-18-2022 Erythrocyte distribution width (RBC) [Entitic vol] 42.8 fL 35.1-43.9 [facility] Erythrocyte distribution width (RBC) [Ratio] 13.1 % 11.6-14.6 [facility] MCH (RBC) [Entitic mass] 28.8 pg 27.0-32.0 [facility] MCHC Auto (RBC) [Mass/Vol]Or dered By: José Miguel Frias on 10-18-2022 MCHC (RBC) [Mass/Vol] 32.3 g/dL 32-36 [facility] No Panel InformationOrdered By: José Miguel Frias on 10-18-2022 Estimated GFR (MDRD) Amer 68 mL/min >60 [facility] Comment on above: GFR Calc Estimated GFR (MDRD) Non-Af Amer 56 mL/min >60 [facility] Comment on above: Non- GFR Calc Thyroid Stimulating Hormone (TSH) 0.31 uIU/mL 0.358-3.74 [facility] Platelets bldOrdered By: Kris Frias on 10-18-2022 Platelets (Bld) [#/Vol] 202 10*3/uL 150-450 [facility] Serum or plasma albumin jalil urement (mass/volume)Ordered By: José Miguel Frias on 10-18-2022 Albumin [Mass/Vol] 3.2 g/dL 3.2-5.0 [facility] Serum or plasma albumin/glob ulin mass ratioOrdered By: José Miguel Frias on 10-18-2022 Albumin/Globulin [Mass ratio] 0.9 {ratio} 0.9-2.4 [facility] Serum or plasma calcium jalil urement (mass/volume)Ordered By: José Miguel Frias on 10-18-2022 Calcium [Mass/Vol] 9.2 mg/dL 8.5-10.1 [facility] Serum or plasma cholesterol in HDL measurement (mass/volume)Ordered By: José Miguel Frias on 10-18-2022 Cholesterol in HDL [Mass/Vol] 80 mg/dL >40 [facility] Comment on above: The drugs N-Acetylcy steine and Metamizole may falsely depress this assay. Reference Range HDL <40 mg/dL Low HDL Cholesterol HDL >or= 60 mg/dL High HDL Cholesterol Serum or plasma cholesterol in VLDL measurement (mass/volume)Ordered By: José Miguel Frias on 10-18-2022 Cholesterol in VLDL [Mass/Vol] 20 mg/dL 5-40 [facility] Serum or plasma creatinine m easurement (mass/volume)Ordered By: José Miguel Frias on 10-18-2022 Creatinine [Mass/Vol] 1.00 mg/dL 0.55-1.02 [facility] Comment on above: The validity of the calculated GFR & GFRAA in patients over 70 years has not been determined. Clinical correlation is essential. Serum or plasma low density lipoprotein (LDL) cholesterol measurement (mass/volume)Ordered By: José Miguel Frias on 10-18-2022 Cholesterol in LDL [Mass/Vol] 64 mg/dL 0-130 [facility] Serum or plasma urea nitroge n measurement (mass/volume)Ordered By: José Miguel Frias on 10-18-2022 Urea nitrogen [Mass/Vol] 40 mg/dL 7-18 [facility] Thin prep Papanicolaou smear with manual screeningOrdered By: José Miguel Frias on 10-18-2022 Thin prep Papanicolaou smear with manual screening 16 U/L 15-37 [facility] Thin prep Papanicolaou smear with manual screening 6 5-15 [facility] Culture, urineOrdered By: Christine Frias on 08-27-2022 Bacteria identified Cx Nom (U) Positive [facility] Basophil percentageOrdered B y: José Miguel Frias on 08-25-2022 Basophil percentage 0 SEEN /hpf 0-5 [facility] Bilirubin Test strip Ql (U)O rdered By: José Miguel Frias on 08-25-2022 Bilirubin Ql (U) Negative Negative [facility] Ketones Test strip Ql (U)Ord ered By: José Miguel Frias on 08-25-2022 Ketones Ql (U) Negative Negative [facility] Mucus LM Ql (Urine sed)Order ed By: José Miguel Frias on 08-25-2022 Mucus Ql (Urine sed) 0 SEEN /hpf [facility] Nitrite Test strip Ql (U)Ord ered By: José Miguel Frias on 08-25-2022 Nitrite Ql (U) Negative Negative [facility] Protein Test strip Ql (U)Ord ered By: José Miguel Frias on 08-25-2022 Protein Ql (U) Negative Negative [facility] Squamous epithelial cells de tection in urine sediment by light microscopyOrdered By: José Miguel Frias on 08-25-2022 Epithelial cells.squamous LM Ql (Urine sed) 0 SEEN /hpf 5-10 [facility] Urine blood detectionOrdered By: José Miguel Frias on 08-25-2022 RBC Ql (U) Negative Negative [facility] RBC Ql (U) 0 SEEN /hpf 0-5 [facility] Urine clarityOrdered By: Kris Frias on 08-25-2022 Clarity (U) Clear Clear [facility] Urine color determinationOrd ered By: José Miguel Frias on 08-25-2022 Color (U) Yellow Yellow [facility] Urine glucose detectionOrder ed By: José Miguel Frias on 08-25-2022 Glucose Ql (U) Normal mg/dl Normal [facility] Urine leukocyte esterase det ection by dipstickOrdered By: José Miguel Frias on 08-25-2022 Leukocyte esterase Test strip Ql (U) Negative Negative [facility] Urine pHOrdered By: José Miguel odell on 08-25-2022 pH (U) 6.0 [pH] 5.0 - 8.0 [facility] Urine sediment bacteria coun t by microscopy (number/high power field)Ordered By: José Miguel Frias on 08-25-2022 Bacteria LM.HPF (Urine sed) [#/Area] 0 /[HPF] None Seen [facility] Urine specific gravity measu rementOrdered By: José Miguel Frias on 08-25-2022 Specific gravity (U) [Rel density] 1.010 1.002-1.03 0 [facility] Urobilinogen Auto test strip Ql (U)Ordered By: José Miguel Frias on 08-25-2022 Urobilinogen Ql (U) Normal mg/dl Normal [facility] Qualitative QuantiFERON-TB g old in tube testOrdered By: José Miguel Frias on 07-28-2022 M. tuberculosis tuberculin stim IFN-g Ql (Bld) 0.66 IU/mL . [facility] Thin prep Papanicolaou smear with manual screeningOrdered By: José Miguel Frias on 07-28-2022 Thin prep Papanicolaou smear with manual screening Comment . [facility] Comment on above: QuantiFERON-TB Gold Plus is [...] smear with manual screening 0.63 IU/mL . [facility] Thin prep Papanicolaou smear with manual screening 0.50 IU/mL . [facility] Thin prep Papanicolaou smear with manual screening > 10.00 IU/mL . [facility] Thin prep Papanicolaou smear with manual screening Negative Negative [facility] Comment on above: No response to M [...] the productionof interferon gamma. Chemiluminescence immunoassaymethodologyPerformed at: [facility] [id number] Director: Kingsley He PhD, Phone: [phone] Culture, urineOrdered By: Christine Frias on 07-20-2022 Bacteria identified Cx Nom (U) Positive [facility] Basophil percentageOrdered B y: José Miguel Frias on 07-18-2022 Basophil percentage 0 SEEN /hpf 0-5 [facility] Bilirubin Test strip Ql (U)O rdered By: José Miguel Frias on 07-18-2022 Bilirubin Ql (U) Negative Negative [facility] Ketones Test strip Ql (U)Ord ered By: José Miguel Frias on 07-18-2022 Ketones Ql (U) Negative Negative [facility] Mucus LM Ql (Urine sed)Order ed By: José Miguel Frias on 07-18-2022 Mucus Ql (Urine sed) 0 SEEN /hpf [facility] Nitrite Test strip Ql (U)Ord ered By: José Miguel Frias on 07-18-2022 Nitrite Ql (U) Negative Negative [facility] Protein Test strip Ql (U)Ord ered By: José Miguel Frias on 07-18-2022 Protein Ql (U) Negative Negative [facility] Squamous epithelial cells de tection in urine sediment by light microscopyOrdered By: José Miguel Frias on 07-18-2022 Epithelial cells.squamous LM Ql (Urine sed) 0-5 SEEN /hpf 5-10 [facility] Urine blood detectionOrdered By: José Miguel Frias on 07-18-2022 RBC Ql (U) Negative Negative [facility] RBC Ql (U) 0 SEEN /hpf 0-5 [facility] Urine clarityOrdered By: Kris Frias on 07-18-2022 Clarity (U) Sl. Cloudy Clear [facility] Urine color determinationOrd ered By: José Miguel Frias on 07-18-2022 Color (U) Yellow Yellow [facility] Urine glucose detectionOrder ed By: José Miguel Frias on 07-18-2022 Glucose Ql (U) Normal mg/dl Normal [facility] Urine leukocyte esterase det ection by dipstickOrdered By: José Miguel Frias on 07-18-2022 Leukocyte esterase Test strip Ql (U) Negative Negative [facility] Urine pHOrdered By: José Miguel odell on 07-18-2022 pH (U) 6.5 [pH] 5.0 - 8.0 [facility] Urine sediment bacteria coun t by microscopy (number/high power field)Ordered By: José Miguel Frias on 07-18-2022 Bacteria LM.HPF (Urine sed) [#/Area] 0 /[HPF] None Seen [facility] Urine specific gravity measu rementOrdered By: José Miguel Frias on 07-18-2022 Specific gravity (U) [Rel density] 1.015 1.002-1.03 0 [facility] Urobilinogen Auto test strip Ql (U)Ordered By: José Miguel Frias on 07-18-2022 Urobilinogen Ql (U) Normal mg/dl Normal [facility] Basophil percentageOrdered B y: Mary oRb on 05-17-2022 Bilirubin [Mass/Vol] 0.50 mg/dL 0.20-1.00 [facility] Comment on above: For patients on eltr ombopag therapy, use of Dimension [place] TBIL is not recommended. Chloride [Moles/Vol] 105 mmol/L 98-107 [facility] Cholesterol [Mass/Vol] 137 mg/dL <200 [facility] Comment on above: <200 mg/dL Desirable 200-240 mg/dL Borderline >240 mg/dL High Risk Glucose [Mass/Vol] 81 mg/dL 74-106 [facility] Potassium [Moles/Vol] 3.8 mmol/L 3.5-5.1 [facility] Protein [Mass/Vol] 5.6 g/dL 6.4-8.2 [facility] Sodium [Moles/Vol] 140 mmol/L 136-145 [facility] Triglyceride [Mass/Vol] 75 mg/dL <199 [facility] Comment on above: The drugs N-Acetylcy steine and Metamizole may falsely depress this assay.Serum Triglycerides Reference Interval Normal <150 mg/dL Borderline high 150 - 199 mg/dL High 200 - 499 mg/dL Very High > or = 500 mg/dL WBC (Bld) [#/Vol] 5.5 10*3/uL 4.4-11.0 [facility] Blood erythrocytes count (nu mber/volume)Ordered By: Mary Rob on 05-17-2022 RBC (Bld) [#/Vol] 4.68 10*6/uL 4.2-5.4 [facility] Blood hemoglobin measurement (mass/volume)Ordered By: Mary Rob on 05-17-2022 Hemoglobin (Bld) [Mass/Vol] 13.4 g/dL 12.0-15.0 [facility] Blood platelet mean volumeOr dered By: Mary Rob on 05-17-2022 Platelet mean volume (Bld) [Entitic vol] 10.7 fL 6.2-12.0 [facility] Determination of erythrocyte mean corpuscular volume (MCV)Ordered By: Mary Rob on 05-17-2022 MCV (RBC) [Entitic vol] 90.0 fL 81-99 [facility] Hematocrit Auto (Bld) [Volum e fraction]Ordered By: Mary Rob on 05-17-2022 Hematocrit (Bld) [Volume fraction] 42.1 % 37-47 [facility] Laboratory - Chemistry and C hemistry - challengeOrdered By: Mary Rob on 05-17-2022 ALP [Catalytic activity/Vol] 75 U/L 45-117 [facility] ALT [Catalytic activity/Vol] 22 U/L 13-56 [facility] CO2 [Moles/Vol] 29.0 mmol/L 21.0-32.0 [facility] Globulin (S) [Mass/Vol] 3.0 g/dL 2.2-4.2 [facility] Urea nitrogen/Creatinine [Mass ratio] 38.7 mg/mg 10-20 [facility] Laboratory - Hematology and Cell countsOrdered By: Mary Rob on 05-17-2022 Erythrocyte distribution width (RBC) [Entitic vol] 44.4 fL 35.1-43.9 [facility] Erythrocyte distribution width (RBC) [Ratio] 13.5 % 11.6-14.6 [facility] MCH (RBC) [Entitic mass] 28.6 pg 27.0-32.0 [facility] MCHC Auto (RBC) [Mass/Vol]Or dered By: Mary Rob on 05-17-2022 MCHC (RBC) [Mass/Vol] 31.8 g/dL 32-36 [facility] No Panel InformationOrdered By: Mary Rob on 05-17-2022 Estimated GFR (MDRD) Amer 103 mL/min >60 [facility] Comment on above: GFR Calc Estimated GFR (MDRD) Non-Af Amer 85 mL/min >60 [facility] Comment on above: Non- GFR Calc Thyroid Stimulating Hormone (TSH) 0.78 uIU/mL 0.358-3.74 [facility] Platelets bldOrdered By: Mary Rob on 05-17-2022 Platelets (Bld) [#/Vol] 185 10*3/uL 150-450 [facility] Serum or plasma albumin jalil urement (mass/volume)Ordered By: Mary Rob on 05-17-2022 Albumin [Mass/Vol] 2.6 g/dL 3.2-5.0 [facility] Serum or plasma albumin/glob ulin mass ratioOrdered By: Mary Rob on 05-17-2022 Albumin/Globulin [Mass ratio] 0.9 {ratio} 0.9-2.4 [facility] Serum or plasma calcium jalil urement (mass/volume)Ordered By: Mary Rob on 05-17-2022 Calcium [Mass/Vol] 8.4 mg/dL 8.5-10.1 [facility] Serum or plasma cholesterol in HDL measurement (mass/volume)Ordered By: Mary Rob on 05-17-2022 Cholesterol in HDL [Mass/Vol] 67 mg/dL >40 [facility] Comment on above: The drugs N-Acetylcy steine and Metamizole may falsely depress this assay. Reference Range HDL <40 mg/dL Low HDL Cholesterol HDL >or= 60 mg/dL High HDL Cholesterol Serum or plasma cholesterol in VLDL measurement (mass/volume)Ordered By: Mary Rob on 05-17-2022 Cholesterol in VLDL [Mass/Vol] 15 mg/dL 5-40 [facility] Serum or plasma creatinine m easurement (mass/volume)Ordered By: Mary Rob on 05-17-2022 Creatinine [Mass/Vol] 0.70 mg/dL 0.55-1.02 [facility] Comment on above: The validity of the calculated GFR & GFRAA in patients over 70 years has not been determined. Clinical correlation is essential. Serum or plasma low density lipoprotein (LDL) cholesterol measurement (mass/volume)Ordered By: Mary Rob on 05-17-2022 Cholesterol in LDL [Mass/Vol] 55 mg/dL 0-130 [facility] Serum or plasma urea nitroge n measurement (mass/volume)Ordered By: Mary Rob on 05-17-2022 Urea nitrogen [Mass/Vol] 27 mg/dL 7-18 [facility] Thin prep Papanicolaou smear with manual screeningOrdered By: Mary Rob on 05-17-2022 Thin prep Papanicolaou smear with manual screening 13 U/L 15-37 [facility] Thin prep Papanicolaou smear with manual screening 6 5-15 [facility] Basophil percentageOrdered B y: Dr. Lo on 04-27-2022 Basophil percentage 0-5 SEEN /hpf 0-5 [facility] Bilirubin Test strip Ql (U)O rdered By: Dr. Lo on 04-27-2022 Bilirubin Ql (U) Negative Negative [facility] Ketones Test strip Ql (U)Ord ered By: Dr. Lo on 04-27-2022 Ketones Ql (U) 5 mg/dl Negative [facility] Laboratory - Drug toxicology Ordered By: Dr. Lo on 04-27-2022 Amphetamines Ql (U) Negative <1000 ng/mL [facility] Benzodiazepines Ql (U) Negative < 200 ng/mL [facility] Cannabinoids Screen Ql (U) Negative < 50 ng/mL [facility] Cocaine Ql (U) Negative < 300 ng/mL [facility] Opiates Ql (U) Negative < 300 ng/mL [facility] Mucus LM Ql (Urine sed)Order ed By: Dr. Lo on 04-27-2022 Mucus Ql (Urine sed) 2+ /hpf [facility] Nitrite Test strip Ql (U)Ord ered By: Dr. Lo on 04-27-2022 Nitrite Ql (U) Negative Negative [facility] No Panel InformationOrdered By: Dr. Lo on 04-27-2022 MDMA (Ecstasy) Screen Negative < 500 ng/mL [facility] Urine Barbiturates Screen Negative < 200 ng/mL [facility] Urine Drug Screen Comment [facility] Comment on above: CONFIRMATORY TESTING FOR ALL [...] Urine Methadone Screen Negative < 300 ng/mL [facility] Protein Test strip Ql (U)Ord ered By: Dr. Lo on 04-27-2022 Protein Ql (U) 15 mg/dl Negative [facility] Squamous epithelial cells de tection in urine sediment by light microscopyOrdered By: Dr. Lo on 04-27-2022 Epithelial cells.squamous LM Ql (Urine sed) 0 SEEN /hpf 5-10 [facility] Urine blood detectionOrdered By: Dr. Lo on 04-27-2022 RBC Ql (U) Negative Negative [facility] RBC Ql (U) 0 SEEN /hpf 0-5 [facility] Urine clarityOrdered By: Dr. Lo on 04-27-2022 Clarity (U) Clear Clear [facility] Urine color determinationOrd ered By: Dr. Lo on 04-27-2022 Color (U) Yellow Yellow [facility] Urine glucose detectionOrder ed By: Dr. Lo on 04-27-2022 Glucose Ql (U) Normal mg/dl Normal [facility] Urine leukocyte esterase det ection by dipstickOrdered By: Dr. Lo on 04-27-2022 Leukocyte esterase Test strip Ql (U) 25 /ul Negative [facility] Urine pHOrdered By: Dr. Claudia jane on 04-27-2022 pH (U) 6.5 [pH] 5.0 - 8.0 [facility] Urine phencyclidine (PCP) de tectionOrdered By: Dr. Lo on 04-27-2022 Phencyclidine Ql (U) Negative < 25 ng/mL [facility] Urine sediment bacteria coun t by microscopy (number/high power field)Ordered By: Dr. Lo on 04-27-2022 Bacteria LM.HPF (Urine sed) [#/Area] 1 /[HPF] None Seen [facility] Urine specific gravity measu rementOrdered By: Dr. Lo on 04-27-2022 Specific gravity (U) [Rel density] 1.020 1.002-1.03 0 [facility] Urobilinogen Auto test strip Ql (U)Ordered By: Dr. Lo on 04-27-2022 Urobilinogen Ql (U) 1 mg/dl Normal [facility] Absolute lymphocyte countOrd ered By: Dr. Lo on 04-26-2022 Lymphocytes Auto (Unsp spec) [#/Vol] 1.37 10*3/uL 0.83-4.51 [facility] Basophil percentageOrdered B y: Dr. Lo on 04-26-2022 Basophils/100 WBC (Bld) 0.5 % 0-1 [facility] Bilirubin [Mass/Vol] 1.00 mg/dL 0.20-1.00 [facility] Comment on above: For patients on eltr ombopag therapy, use of Dimension [place] TBIL is not recommended. Chloride [Moles/Vol] 105 mmol/L 98-107 [facility] Eosinophils/100 WBC (Bld) 1.2 % 0-5 [facility] Glucose [Mass/Vol] 104 mg/dL 74-106 [facility] Comment on above: Fasting Glucose resu lt from 100 to 125 mg/dL suggests IMPAIRED HOMEOSTASIS per A.D.A. criteria. Neutrophils (Bld) [#/Vol] 3.5 10*3/uL 2.0-7.7 [facility] Neutrophils/100 WBC (Bld) 62.0 % 47-70 [facility] Potassium [Moles/Vol] 3.0 mmol/L 3.5-5.1 [facility] Protein [Mass/Vol] 6.4 g/dL 6.4-8.2 [facility] Sodium [Moles/Vol] 139 mmol/L 136-145 [facility] WBC (Bld) [#/Vol] 5.7 10*3/uL 4.4-11.0 [facility] Blood erythrocytes count (nu mber/volume)Ordered By: Dr. Lo on 04-26-2022 RBC (Bld) [#/Vol] 5.09 10*6/uL 4.2-5.4 [facility] Blood hemoglobin measurement (mass/volume)Ordered By: Dr. Lo on 04-26-2022 Hemoglobin (Bld) [Mass/Vol] 14.6 g/dL 12.0-15.0 [facility] Blood lymphocytes/100 leukoc ytesOrdered By: Dr. Lo on 04-26-2022 Lymphocytes/100 WBC (Bld) 24.1 % 19-41 [facility] Blood monocytes/100 leukocyt esOrdered By: Dr. Lo on 04-26-2022 Monocytes/100 WBC (Bld) 12.0 % 0-10 [facility] Blood platelet mean volumeOr dered By: Dr. Lo on 04-26-2022 Platelet mean volume (Bld) [Entitic vol] 10.3 fL 6.2-12.0 [facility] COVID-19 virus antigen assay Ordered By: Dr. Lo on 04-26-2022 SARS-CoV-2 (COVID-19) Ag IA.rapid Ql (Resp) [facility] Determination of erythrocyte mean corpuscular volume (MCV)Ordered By: Dr. Lo on 04-26-2022 MCV (RBC) [Entitic vol] 88.2 fL 81-99 [facility] Hematocrit Auto (Bld) [Volum e fraction]Ordered By: Dr. Lo on 04-26-2022 Hematocrit (Bld) [Volume fraction] 44.9 % 37-47 [facility] Laboratory - Chemistry and C hemistry - challengeOrdered By: Dr. Lo on 04-26-2022 ALP [Catalytic activity/Vol] 133 U/L 45-117 [facility] ALT [Catalytic activity/Vol] 16 U/L 13-56 [facility] CO2 [Moles/Vol] 25.0 mmol/L 21.0-32.0 [facility] Globulin (S) [Mass/Vol] 3.2 g/dL 2.2-4.2 [facility] Urea nitrogen/Creatinine [Mass ratio] 20.7 mg/mg 10-20 [facility] Laboratory - Hematology and Cell countsOrdered By: Dr. Lo on 04-26-2022 Erythrocyte distribution width (RBC) [Entitic vol] 42.0 fL 35.1-43.9 [facility] Erythrocyte distribution width (RBC) [Ratio] 13.0 % 11.6-14.6 [facility] Immature granulocytes/100 WBC (Bld) 0.200 % 0.0-0.9 [facility] Comment on above: IG% - Immature Granu locytes (promyelocytes, myelocytes and metamyelocytes) > 1% indicates that a LEFT SHIFT is Present. MCH (RBC) [Entitic mass] 28.7 pg 27.0-32.0 [facility] Nucleated RBC/100 WBC (Bld) [Ratio] 0 % 0-5 [facility] MCHC Auto (RBC) [Mass/Vol]Or dered By: Dr. Lo on 04-26-2022 MCHC (RBC) [Mass/Vol] 32.5 g/dL 32-36 [facility] No Panel InformationOrdered By: Dr. Lo on 04-26-2022 Estimated Creatinine Clearance Calc 48.56 ml/min [facility] Estimated GFR (MDRD) Amer 80 mL/min >60 [facility] Comment on above: GFR Calc Estimated GFR (MDRD) Non-Af Amer 66 mL/min >60 [facility] Comment on above: Non- GFR Calc Ethyl Alcohol Level < 3.0 mg/dL [facility] Comment on above: The serum:whole bloo d ethanol ratio is approximately 1.14and varies slightly with hematocrit. Medical Alcohol reference interval and critical value innon-tolerant individuals; 50 - 100 Impairment 100 Intoxication 100 - 250 Severe Poisoning 250 - 400 Deep/possible fatal coma Platelets bldOrdered By: Dr. Lo on 04-26-2022 Platelets (Bld) [#/Vol] 229 10*3/uL 150-450 [facility] Serum or plasma albumin jalil urement (mass/volume)Ordered By: Dr. Lo on 04-26-2022 Albumin [Mass/Vol] 3.2 g/dL 3.2-5.0 [facility] Serum or plasma albumin/glob ulin mass ratioOrdered By: Dr. Lo on 04-26-2022 Albumin/Globulin [Mass ratio] 1.0 {ratio} 0.9-2.4 [facility] Serum or plasma calcium jalil urement (mass/volume)Ordered By: Dr. Lo on 04-26-2022 Calcium [Mass/Vol] 8.7 mg/dL 8.5-10.1 [facility] Serum or plasma creatinine m easurement (mass/volume)Ordered By: Dr. Lo on 04-26-2022 Creatinine [Mass/Vol] 0.87 mg/dL 0.55-1.02 [facility] Comment on above: The validity of the calculated GFR & GFRAA in patients over 70 years has not been determined. Clinical correlation is essential. Serum or plasma urea nitroge n measurement (mass/volume)Ordered By: Dr. Lo on 04-26-2022 Urea nitrogen [Mass/Vol] 18 mg/dL 7-18 [facility] Thin prep Papanicolaou smear with manual screeningOrdered By: Dr. Lo on 04-26-2022 Thin prep Papanicolaou smear with manual screening 14 U/L 15-37 [facility] Thin prep Papanicolaou smear with manual screening 9 5-15 [facility] Culture, urineOrdered By: Dr Selena Herrera on 03-27-2022 Bacteria identified Cx Nom (U) Mixed Gram Pos & Gram Neg Org [facility] Absolute lymphocyte countOrd ered By: Dr. Herrera on 03-26-2022 Lymphocytes Auto (Unsp spec) [#/Vol] 0.97 10*3/uL 0.83-4.51 [facility] Basophil percentageOrdered B y: Dr. Herrera on 03-26-2022 Basophil percentage 0 SEEN /hpf 0-5 [facility] Basophils/100 WBC (Bld) 0.3 % 0-1 [facility] Chloride [Moles/Vol] 109 mmol/L 98-107 [facility] Eosinophils/100 WBC (Bld) 0.8 % 0-5 [facility] Glucose [Mass/Vol] 107 mg/dL 74-106 [facility] Comment on above: Fasting Glucose resu lt from 100 to 125 mg/dL suggests IMPAIRED HOMEOSTASIS per A.D.A. criteria. Lactate [Moles/Vol] 1.4 mmol/L 0.4-2.0 [facility] Neutrophils (Bld) [#/Vol] 4.7 10*3/uL 2.0-7.7 [facility] Neutrophils/100 WBC (Bld) 73.0 % 47-70 [facility] Potassium [Moles/Vol] 3.2 mmol/L 3.5-5.1 [facility] Sodium [Moles/Vol] 142 mmol/L 136-145 [facility] WBC (Bld) [#/Vol] 6.4 10*3/uL 4.4-11.0 [facility] Bilirubin Test strip Ql (U)O rdered By: Dr. Herrera on 03-26-2022 Bilirubin Ql (U) Negative Negative [facility] Blood erythrocytes count (nu mber/volume)Ordered By: Dr. Herrera on 03-26-2022 RBC (Bld) [#/Vol] 4.85 10*6/uL 4.2-5.4 [facility] Blood hemoglobin measurement (mass/volume)Ordered By: Dr. Herrera on 03-26-2022 Hemoglobin (Bld) [Mass/Vol] 14.4 g/dL 12.0-15.0 [facility] Blood lymphocytes/100 leukoc ytesOrdered By: Dr. Herrera on 03-26-2022 Lymphocytes/100 WBC (Bld) 15.2 % 19-41 [facility] Blood monocytes/100 leukocyt esOrdered By: Dr. Herrera on 03-26-2022 Monocytes/100 WBC (Bld) 10.4 % 0-10 [facility] Blood platelet mean volumeOr dered By: Dr. Herrera on 03-26-2022 Platelet mean volume (Bld) [Entitic vol] 10.6 fL 6.2-12.0 [facility] Determination of erythrocyte mean corpuscular volume (MCV)Ordered By: Dr. Herrera on 03-26-2022 MCV (RBC) [Entitic vol] 90.5 fL 81-99 [facility] Hematocrit Auto (Bld) [Volum e fraction]Ordered By: Dr. Herrera on 03-26-2022 Hematocrit (Bld) [Volume fraction] 43.9 % 37-47 [facility] Ketones Test strip Ql (U)Ord ered By: Dr. Herrera on 03-26-2022 Ketones Ql (U) 5 mg/dl Negative [facility] Laboratory - Chemistry and C hemistry - challengeOrdered By: Dr. Herrera on 03-26-2022 CO2 [Moles/Vol] 26.0 mmol/L 21.0-32.0 [facility] Urea nitrogen/Creatinine [Mass ratio] 36.3 mg/mg 10- [facility] Laboratory - Hematology and Cell countsOrdered By: Dr. Herrera on 03-26-2022 Erythrocyte distribution width (RBC) [Entitic vol] 43.6 fL 35.1-43.9 [facility] Erythrocyte distribution width (RBC) [Ratio] 13.2 % 11.6-14.6 [facility] Immature granulocytes/100 WBC (Bld) 0.300 % 0.0-0.9 [facility] Comment on above: IG% - Immature Granu locytes (promyelocytes, myelocytes and metamyelocytes) > 1% indicates that a LEFT SHIFT is Present. MCH (RBC) [Entitic mass] 29.7 pg 27.0-32.0 [facility] Nucleated RBC/100 WBC (Bld) [Ratio] 0 % 0-5 [facility] MCHC Auto (RBC) [Mass/Vol]Or dered By: Dr. Herrera on 03-26-2022 MCHC (RBC) [Mass/Vol] 32.8 g/dL 32-36 [facility] Mucus LM Ql (Urine sed)Order ed By: Dr. Herrera on 03-26-2022 Mucus Ql (Urine sed) 0 SEEN /hpf [facility] Nitrite Test strip Ql (U)Ord ered By: Dr. Herrera on 03-26-2022 Nitrite Ql (U) Negative Negative [facility] No Panel InformationOrdered By: Dr. Herrera on 03-26-2022 Estimated Creatinine Clearance Calc 42.25 ml/min [facility] Estimated GFR (MDRD) Amer 100 mL/min >60 [facility] Comment on above: GFR Calc Estimated GFR (MDRD) Non-Af Amer 82 mL/min >60 [facility] Comment on above: Non- GFR Calc Troponin I High Sensitivity 27 pg/mL 3.0-54.0 [facility] Comment on above: Please Note: New Madiha t Units and Gender Specific Reference Ranges. For more information see Policy Stat Procedure [place] High Sensitivity Troponin (TNIH) and attachments. Platelets bldOrdered By: Dr. Herrera on 03-26-2022 Platelets (Bld) [#/Vol] 218 10*3/uL 150-450 [facility] Protein Test strip Ql (U)Ord ered By: Dr. Herrera on 03-26-2022 Protein Ql (U) Negative Negative [facility] Serum or plasma calcium jalil urement (mass/volume)Ordered By: Dr. Herrera on 03-26-2022 Calcium [Mass/Vol] 9.3 mg/dL 8.5-10.1 [facility] Serum or plasma creatinine m easurement (mass/volume)Ordered By: Dr. Herrera on 03-26-2022 Creatinine [Mass/Vol] 0.72 mg/dL 0.55-1.02 [facility] Comment on above: The validity of the calculated GFR & GFRAA in patients over 70 years has not been determined. Clinical correlation is essential. Serum or plasma urea nitroge n measurement (mass/volume)Ordered By: Dr. Herrera on 03-26-2022 Urea nitrogen [Mass/Vol] 26 mg/dL 7-18 [facility] Squamous epithelial cells de tection in urine sediment by light microscopyOrdered By: Dr. Herrera on 03-26-2022 Epithelial cells.squamous LM Ql (Urine sed) 0-5 SEEN /hpf 5-10 [facility] Thin prep Papanicolaou smear with manual screeningOrdered By: Dr. Herrera on 03-26-2022 Thin prep Papanicolaou smear with manual screening 7 5-15 [facility] Urine blood detectionOrdered By: Dr. Herrera on 03-26-2022 RBC Ql (U) 10 /ul Negative [facility] RBC Ql (U) 0 SEEN /hpf 0-5 [facility] Urine clarityOrdered By: Dr. Herrera on 03-26-2022 Clarity (U) Clear Clear [facility] Urine color determinationOrd ered By: Dr. Herrera on 03-26-2022 Color (U) Yellow Yellow [facility] Urine glucose detectionOrder ed By: Dr. Herrera on 03-26-2022 Glucose Ql (U) Normal mg/dl Normal [facility] Urine leukocyte esterase det ection by dipstickOrdered By: Dr. Herrera on 03-26-2022 Leukocyte esterase Test strip Ql (U) Negative Negative [facility] Urine pHOrdered By: Dr. Cindy purvis on 03-26-2022 pH (U) 6.5 [pH] 5.0 - 8.0 [facility] Urine sediment bacteria coun t by microscopy (number/high power field)Ordered By: Dr. Herrera on 03-26-2022 Bacteria LM.HPF (Urine sed) [#/Area] 0 /[HPF] None Seen [facility] Urine specific gravity measu rementOrdered By: Dr. Herrera on 03-26-2022 Specific gravity (U) [Rel density] 1.020 1.002-1.03 0 [facility] Urobilinogen Auto test strip Ql (U)Ordered By: Dr. Herrera on 03-26-2022 Urobilinogen Ql (U) Normal mg/dl Normal [facility] Office Visiton 02-22-2017 Fall risk assessment No Invalid Interpretation Code [facility] [employer] Work Phone: [phone] Protein mass conc Done Invalid Interpretation Code [facility] [employer] Work Phone: [phone] Tobacco smoking status NHIS Never smoker Invalid Interpretation Code [facility] [employer] Work Phone: [phone] Clinical Lists Update: Pre vb developer 12-30-2015 Left ventricular Ejection fraction 55 % Invalid Interpretation Code [facility] [employer] Work Phone: [phone] Clinical Lists Update: [facility]12-23-2015 Albumin mass conc 3.9 g/dL Invalid Interpretation Code [facility] [employer] Work Phone: [phone] ALP enzyme act/vol (Bld) 80 U/L Invalid Interpretation Code [facility] [employer] Work Phone: [phone] ALT enzyme act/vol 14 U/L Invalid Interpretation Code [facility] [employer] Work Phone: [phone] Anion gap 4 molar conc 12 Invalid Interpretation Code [facility] [employer] Work Phone: [phone] AST enzyme act/vol 22 U/L Invalid Interpretation Code [facility] Work Phone: [phone] Bilirubin mass conc 0.8 mg/dL Invalid Interpretation Code [facility] [employer] Work Phone: [phone] Calcium mass conc 9.1 mg/dL Invalid Interpretation Code [facility] Work Phone: [phone] Chloride molar conc 100 mmol/L Invalid Interpretation Code [facility] Work Phone: [phone] Cholesterol in HDL mass conc 82 mg/dL Invalid Interpretation Code [facility] Work Phone: [phone] Cholesterol in LDL mass conc 64 mg/dL Invalid Interpretation Code [facility] Work Phone: [phone] Cholesterol in LDL/Cholesterol in HDL mass ratio 0.78 Invalid Interpretation Code [facility] Work Phone: [phone] Cholesterol mass conc 160 mg/dL Invalid Interpretation Code [facility] Work Phone: [phone] Cholesterol.total/Cho lesterol in HDL mass ratio 1.95 {ratio} Invalid Interpretation Code [facility] Work Phone: [phone] CO2 ppres (BldV) 30 mmol/L Invalid Interpretation Code [facility] Work Phone: [phone] Creatinine mass conc 0.66 mg/dL [facility] [employer] Work Phone: [phone] Glucose mass conc 90 mg/dL Invalid Interpretation Code [facility] Work Phone: [phone] Lipoprotein.pre-beta mass conc 14 mg/dL Invalid Interpretation Code [facility] Work Phone: [phone] Potassium molar conc 4.0 mmol/L Invalid Interpretation Code [facility] Work Phone: [phone] Protein mass conc 6.9 g/dL Invalid Interpretation Code [facility] Work Phone: [phone] Sodium molar conc 142 mmol/L Invalid Interpretation Code [facility] Work Phone: [phone] Thyrotropin Qn 0.158 u[iU]/mL [facility] Work Phone: [phone] Triglyceride mass conc 69 mg/dL Invalid Interpretation Code [facility] Work Phone: [phone] Urea nitrogen mass conc 20 mg/dL Invalid Interpretation Code [facility] Work Phone: [phone] Clinical Lists Update: Prelo vb developer 04-20-2015 Bilirubin.direct mass conc mg/dL Invalid Interpretation Code [facility] Work Phone: [phone] Office Visiton 01-04-2015 cardiac risk group B Invalid Interpretation Code [employer] Work Phone: [phone] General cardiovascular disease 10Y risk [#] Nasima.Una'Rafat 3 % Invalid Interpretation Code [employer] Work Phone: [phone] Clinical Lists Update: Prelo vb developer 10-08-2014 Erythrocyte distribution width Auto Ratio (RBC) 13.2 % Invalid Interpretation Code [employer] Work Phone: [phone] Hematocrit Auto Volume Fraction (Bld) 41.4 % Invalid Interpretation Code [employer] Work Phone: [phone] Hemoglobin mass conc (Bld) 12.9 g/dL Invalid Interpretation Code [employer] Work Phone: [phone] MCH Auto Entitic mass (RBC) 29.2 pg Invalid Interpretation Code [employer] Work Phone: [phone] MCHC Auto mass conc (RBC) 31.2 g/dL Invalid Interpretation Code [employer] Work Phone: [phone] MCV Auto Entitic volume (RBC) 93.7 fL Invalid Interpretation Code [employer] Work Phone: [phone] Platelet mean volume Jhonny-Harjit Entitic volume (Bld) 10.6 fL Invalid Interpretation Code [employer] Work Phone: [phone] Platelets Auto #/vol (Bld) 191 10*3/mm3 Invalid Interpretation Code [employer] Work Phone: [phone] RBC Auto #/vol (Bld) 4.42 10*6/uL Invalid Interpretation Code [employer] Work Phone: [phone] WBC Auto #/vol (Bld) 4.34 10*3/uL Invalid Interpretation Code [employer] Work Phone: [phone] Lab Report: LIVERon 10-07-19 14 ALK 77 U/L Normal 45-117 [employer] Work Phone: [phone] Office Visiton 10-02-2013 Protein mass conc no Invalid Interpretation Code [employer] Phone: [phone] Replaced Document: Estephanie Mcmullen CG Observationson 10-02-2013 EKG QRS axis -45 deg Invalid Interpretation Code [employer] Work Phone: [phone] Interpretation Sinus Bradycardia - frequent ectopic ventricular beat s # VECs = 2-Left axis -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 -Nonspecific ST depression -Nondiagnostic. ABNORMAL Invalid Interpretation Code [facility] Work Phone: [phone] P [place] 58 deg Invalid Interpretation Code [facility] Work Phone: [phone] NE Interval 186 ms Invalid Interpretation Code [facility] Work Phone: [phone] QRS Duration 118 ms Invalid Interpretation Code [facility] Work Phone: [phone] Interval new path ms Invalid Interpretation Code [facility] Work Phone: [phone] T [place] -1 deg Invalid Interpretation Code [facility] Work Phone: [phone] Culture, urine Bacteria identified Cx Nom (U) Mixed Gram Pos & Gram Neg Org [facility] Work Phone: Vital Signs Date Time Vital Sign Value Performing Clinician Facility 10-06-2024 16:48-0400 Body height 172.[address] José Miguel Frias MD Work Phone: [facility] 10-06-2024 16:48-0400 Body temperature 98.1 [degF] Dr. José Miguel Frias MD Work Phone: [phone](685)[phone] [place] [address] 10-06-2024 16:48-0400 Diastolic blood pressure 99 mm[Hg] Dr. José Miguel Frias MD Work Phone: [facility] 10-06-2024 16:48-0400 Heart rate 77 /min Dr. José Miguel Frias MD Work Phone: [facility] 10-06-2024 16:48-0400 Respiratory rate 19 /min Dr. José Miguel Frias MD Work Phone: [phone] [place] [address] 10-06-2024 16:48-0400 SaO2% (BldA) [Mass fraction] 98 % Dr. José Miguel Frias MD Work Phone: [facility] 10-06-2024 16:48-0400 Systolic blood pressure 172 mm[Hg] Dr. José Miguel Frias MD Work Phone: [phone])362-611437 [place] [address] 02-25-2023 13:22-0400 Body temperature 98 [degF] Dr. José Miguel Frias Work Phone: 5(607)074-092103 [place] [address] 02-25-2023 13:22-0400 Diastolic blood pressure 69 mm[Hg] Dr. José Miguel Frias Work Phone: 0(489)115-861703 [place] [address] 02-25-2023 13:22-0400 Heart rate 76 /min Dr. José Miguel Frias Work Phone: 6(532)812-465803 [place] [address] 02-25-2023 13:22-0400 Respiratory rate 18 /min Dr. José Miguel Frias Work Phone: 0(557)302-318803 [place] [address] 02-25-2023 13:22-0400 SaO2% (BldA) [Mass fraction] 96 % Dr. José Miguel Frias Work Phone: 5(261)289-504203 [place] [address] 02-25-2023 13:22-0400 Systolic blood pressure 116 mm[Hg] Dr. José Miguel Frias Work Phone: 9(783)393-255503 [place] [address] 02-24-2023 13:31-0400 Body height 172.[address] José Miguel Frias Work Phone: [phone])619-960103 [place] [address] 02-24-2023 13:31-0400 Body weight 80.[address] José Miguel Frias Work Phone: 6(930)298-665003 [place] [address] 02-23-2023 23:37-0400 Body mass index (BMI) [Ratio] 26.9 kg/m2 Dr. José Miguel Frias Work Phone: 8([phone])840-391703 [place] [address] 12-22-2022 15:09-0400 Body weight 78.02 kg José Miguel Frias MD Work Phone: [facility] 12-22-2022 15:09-0400 Diastolic blood pressure 84 mm[Hg] José Miguel Frias MD Work Phone: [facility] 12-22-2022 15:09-0400 Heart rate 62 /min José Miguel Frias MD Work Phone: [facility] 12-22-2022 15:09-0400 Respiratory rate 16 /min José Miguel Frias MD Work Phone: [facility] 12-22-2022 15:09-0400 Systolic blood pressure 122 mm[Hg] José Miguel Frias MD Work Phone: [facility] 10-31-2022 15:50-0400 Body weight 82.56 kg Nedra Cheema UPHOLSTERY DEPARTMENT SUPERVISOR.AIRDROP SYSTEMS TECHNICIAN Work Phone: [facility] 10-31-2022 15:50-0400 Diastolic blood pressure 62 mm[Hg] Nedra Cheema UPHOLSTERY DEPARTMENT SUPERVISOR.AIRDROP SYSTEMS TECHNICIAN Work Phone: [facility] 10-31-2022 15:50-0400 Heart rate 72 /min Nedra Cheema UPHOLSTERY DEPARTMENT SUPERVISOR.AIRDROP SYSTEMS TECHNICIAN Work Phone: [facility] 10-31-2022 15:50-0400 Respiratory rate 16 /min Nedra Cheema UPHOLSTERY DEPARTMENT SUPERVISOR.AIRDROP SYSTEMS TECHNICIAN Work Phone: [facility] 10-31-2022 15:50-0400 Systolic blood pressure 132 mm[Hg] Nedra Cheema UPHOLSTERY DEPARTMENT SUPERVISOR.AIRDROP SYSTEMS TECHNICIAN Work Phone: [facility] 09-15-2022 16:33-0400 Body temperature 97.81 [degF] José Miguel Frias MD Work Phone: [facility] 09-15-2022 16:33-0400 Body weight 78.47 kg José Miguel Frias MD Work Phone: [facility] 09-15-2022 16:33-0400 Diastolic blood pressure 70 mm[Hg] José Miguel Frias MD Work Phone: [facility] 09-15-2022 16:33-0400 Heart rate 64 /min José Miguel Frias MD Work Phone: [facility] 09-15-2022 16:33-0400 Respiratory rate 14 /min José Miguel Frias MD Work Phone: [facility] 09-15-2022 16:33-0400 SaO2% (BldA) [Mass fraction] 99 % José Miguel Frias MD Work Phone: [facility] 09-15-2022 16:33-0400 Systolic blood pressure 132 mm[Hg] José Miguel Frias MD Work Phone: [facility] 09-04-2022 13:41-0400 Body weight 78.93 kg Mckenzie Older UPHOLSTERY DEPARTMENT SUPERVISOR.UI [employer]X WEB DEVELOPER Work Phone: [facility] 09-04-2022 13:41-0400 Diastolic blood pressure 68 mm[Hg] Mckenzie Older UPHOLSTERY DEPARTMENT SUPERVISOR.UI [employer]X WEB DEVELOPER Work Phone: [facility] 09-04-2022 13:41-0400 Heart rate 60 /min Mckenzie Older UPHOLSTERY DEPARTMENT SUPERVISOR.UI UX WEB DEVELOPER Work Phone: [facility] 09-04-2022 13:41-0400 Respiratory rate 12 /min Mckenzie Older UPHOLSTERY DEPARTMENT SUPERVISOR.UI UX WEB DEVELOPER Work Phone: [facility] 09-04-2022 13:41-0400 Systolic blood pressure 138 mm[Hg] Mckenzie Older UPHOLSTERY DEPARTMENT SUPERVISOR.UI UX WEB DEVELOPER Work Phone: [facility] 08-03-2022 14:08-0400 Body weight 77.47 kg José Miguel Frias MD Work Phone: [facility] 08-03-2022 14:08-0400 Diastolic blood pressure 62 mm[Hg] José Miguel Frias MD Work Phone: [facility] 08-03-2022 14:08-0400 Heart rate 64 /min José Miguel Frias MD Work Phone: [facility] 08-03-2022 14:08-0400 Respiratory rate 12 /min José Miguel Frias MD Work Phone: [facility] 08-03-2022 14:08-0400 Systolic blood pressure 122 mm[Hg] José Miguel Frias MD Work Phone: [facility] 07-26-2022 13:01-0400 Body temperature 98.01 [degF] José Miguel Frias MD Work Phone: [facility] 07-26-2022 13:01-0400 Body weight 77.47 kg José Miguel Frias MD Work Phone: [facility] 07-26-2022 13:01-0400 Diastolic blood pressure 56 mm[Hg] José Miguel Frias MD Work Phone: [facility] 07-26-2022 13:01-0400 Heart rate 68 /min José Miguel Frias MD Work Phone: [facility] 07-26-2022 13:01-0400 Respiratory rate 12 /min José Miguel Frias MD Work Phone: [facility] 07-26-2022 13:010400 Systolic blood pressure 100 mm[Hg] José Miguel Frias MD Work Phone: [facility] 07-01-2022 11:07-0500 Body temperature 96.69 [degF] José Miguel Frias MD Work Phone: [facility] 07-01-2022 11:07-0500 Body weight 75.75 kg José Miguel Frias MD Work Phone: [facility] 07-01-2022 11:07-0500 Diastolic blood pressure 68 mm[Hg] José Miguel Frias MD Work Phone: [facility] 07-01-2022 11:07-0500 Heart rate 80 /min José Miguel Frias MD Work Phone: [facility] 07-01-2022 11:07-0500 Respiratory rate 18 /min José Miguel Frias MD Work Phone: [facility] 07-01-2022 11:07-0500 SaO2% (BldA) [Mass fraction] 96 % José Miguel Frias MD Work Phone: [facility] 07-01-2022 11:07-0500 Systolic blood pressure 118 mm[Hg] José Miguel Frias MD Work Phone: [facility] 06-14-2022 13:10-0500 Body height 165.1 cm José Miguel Frias MD Work Phone: [facility] 06-14-2022 13:10-0500 Body temperature 98.01 [degF] José Miguel Frias MD Work Phone: [facility] 06-14-2022 13:10-0500 Body weight 74.84 kg José Miguel Frias MD Work Phone: [facility] 06-14-2022 13:10-0500 Diastolic blood pressure 60 mm[Hg] José Miguel Frias MD Work Phone: [facility] 06-14-2022 13:10-0500 Heart rate 76 /min José Miguel Frias MD Work Phone: [facility] 06-14-2022 13:10-0500 Respiratory rate 12 /min José Miguel Frias MD Work Phone: [facility] 06-14-2022 13:10-0500 Systolic blood pressure 128 mm[Hg] José Miguel Frias MD Work Phone: [facility] 04-27-2022 08:16-0500 Diastolic blood pressure 78 mm[Hg] [facility] 04-27-2022 08:16-0500 Heart rate 78 /min [facility] 04-27-2022 08:16-0500 Respiratory rate 16 /min [facility] 04-27-2022 08:16-0500 SaO2% (BldA) [Mass fraction] 99 % [facility] 04-27-2022 08:16-0500 Systolic blood pressure 130 mm[Hg] [facility] 04-27-2022 04:13-0500 Body temperature 98.2 [degF] [facility] 04-26-2022 22:25-0500 Body height 172.72 cm [facility] 04-26-2022 22:25-0500 Body mass index (BMI) [Ratio] 22.8 kg/m2 [facility] 04-26-2022 22:25-0500 Body weight 68.2 kg [facility] 04-08-2022 20:09-0500 Body temperature 98.4 [degF] [facility] 04-08-2022 20:09-0500 Diastolic blood pressure 61 mm[Hg] [facility] 04-08-2022 20:09-0500 Heart rate 94 /min [facility] 04-08-2022 20:09-0500 Respiratory rate 16 /min [facility] 04-08-2022 20:09-0500 SaO2% (BldA) [Mass fraction] 99 % [facility] 04-08-2022 20:09-0500 Systolic blood pressure 134 mm[Hg] [facility] 04-08-2022 18:18-0500 Body height 172.72 cm [facility] Work Phone: 04-08-2022 18:18-0500 Body mass index (BMI) [Ratio] 20.5 kg/m2 [facility] 04-08-2022 18:18-0500 Body weight 61.23 kg [facility] 03-26-2022 08:39-0500 Body height 172.72 cm [facility] Work Phone: 03-26-2022 08:39-0500 Body mass index (BMI) [Ratio] 22.8 kg/m2 [facility] 03-26-2022 08:39-0500 Body temperature 97.1 [degF] [facility] 03-26-2022 08:39-0500 Body weight 68.03 kg [facility] 03-26-2022 08:39-0500 Diastolic blood pressure 120 mm[Hg] [facility] 03-26-2022 08:39-0500 Heart rate 140 /min [facility] 03-26-2022 08:39-0500 Respiratory rate 18 /min [facility] 03-26-2022 08:39-0500 SaO2% (BldA) [Mass fraction] 99 % [facility] 03-26-2022 08:39-0500 Systolic blood pressure 191 mm[Hg] [facility] 02-22-2017 15:09-0400 BMI (Body Mass Index) 27.37 kg/m2 Marina Blanc [facility] Work Phone: 02-22-2017 15:09-0400 BP Diastolic [...] Heart rate 423 ms Marina [facility] Work Phone: Encounters Encounter Date Encounter Type Care Provider Facility Start: 11-28-2024 ambulatory José Miguel Aaron ty:[facility] Start: 11-20-2024 ambulatory José Miguel Aaron ty:[facility] Start: 10-10-2024 ambulatory José Miguel Aaron ty:[facility] Start: 10-10-[address] Emmanuel vázquez MD -[facility] Work Phone: Start: 10-06-2024 End: 10-06-2024 Emergency department patient visit Dr. José Miguel Frias MD Work Phone: -Emergency Department Work Phone: Start: 09-30-2024 End: 09-30-[address] José Miguel Frias MD Work Phone: [facility] Work Phone: Start: 09-30-2024 End: 09-30-[address] Emmanuel Park MD -[facility] Work Phone: Start: 09-30-[address] Emmanuel vázquez MD -[facility] [place] [facility] Work Phone: Start: 09-30-2024 End: 09-30-2024 ambulatory Emmanuel VELASQUEZ Facility:[facility] Start: 08-21-2024 End: 08-21-[address] José Miguel Frias MD Work Phone: [facility] Work Phone: Start: 08-21-2024 End: 08-21-[address] Emmanuel Park MD -[facility] Work Phone: Start: 08-21-2024 End: 08-21-2024 ambulatory Emmanuel VELASQUEZ Facility:[facility] Start: 04-23-2024 End: 04-24-2024 Refill José Miguel Frias MD Work Phone: [facility] Comment on above: Refill Request request medicaiton n ot on current med list Start: 04-21-2024 ambulatory Emmanuel Park OLS Facil ity:[facility] Start: 04-16-2024 ambulatory Emmanuel VELASQUEZ Facil ity:[facility] Start: 04-11-2024 End: 04-11-2024 Emergency department patient visit Ellis Andtonja Facility:[facility] Start: 04-02-2024 End: 04-02-2024 ambulatory Emmanuel Park OLS Facility:[facility] Start: 03-19-2024 ambulatory Emmanuel Park OLS [facility] [facility] Start: 01-16-2024 End: 01-16-2024 ambulatory [place] OLS Facility:[facility] Start: 12-19-2023 Telephone encounter José Miguel odell MD Work Phone: Internal Medicine [place] Comment on above: Patient Outreach Start: 12-14-2023 ambulatory Tammy Ellis [facility] Start: 12-14-2023 Patient encounter procedure Tammy Ellis MA [facility] Comment on above: Population Health Na vigation Outreach (Cut Off Workbench - [place] [facility]) Start: 12-14-2023 End: 12-14-2023 ambulatory Emmanuel Vaughnins EVA Facility:[facility] Start: 10-09-2023 ambulatory Tammy Ellis [facility] Start: 10-09-2023 Patient encounter procedure Tammy Ellis MA [facility] Comment on above: Population Health Na vigation Outreach (Cut Off [facility] CURRENT ROSTER workbench - AWV, Care gaps, HCC gap closure - [place] [facility]) Start: 08-30-2023 ambulatory Tammy Ellis [facility] Start: 08-30-2023 Patient encounter procedure Tammy Ellis MA [facility] Comment on above: Population Health Na vigation Outreach ([facility] CURRENT ROSTER workbench - AWV, Care gaps, HCC gap closure - [place] [facility]) Start: 05-29-2023 End: 05-29-2023 ambulatory JOSÉ MIGUEL FRIAS Facility:[facility] Start: 04-12-2023 Refill José Miguel beck MD Work Phone: Internal [facility] [place] Comment on above: Refill Request Start: 04-10-2023 Telephone encounter Nedra abdullahi UPHOLSTERY DEPARTMENT SUPERVISOR.AIRDROP SYSTEMS TECHNICIAN Work Phone: [facility] [place] Comment on above: Orders Start: 03-26-2023 Telephone encounter José Miguel odell MD Work Phone: Internal Medicine [place] Comment on above: [facility] HH Update Start: 03-23-2023 Refill José Miguel beck MD Work Phone: [facility] [place] Comment on above: Refill Request Start: 03-22-2023 Telephone encounter José Miguel odell MD Work Phone: Internal Medicine [place] Comment on above: Patient Update Start: 03-19-2023 Telephone encounter Nedra abdullahi UPHOLSTERY DEPARTMENT SUPERVISOR.AIRDROP SYSTEMS TECHNICIAN Work Phone: [facility] [place] Comment on above: report on patient le gs Start: 03-13-2023 Telephone encounter José Miguel odell MD Work Phone: [facility] [place] Comment on above: Release Of Medical R ecords Start: 03-09-2023 ambulatory José Miguel beck MD Work Phone: Internal [facility] [place] Comment on above: Edema Start: 03-09-2023 Telephone encounter José Miguel odell MD Work Phone: [facility] [place] Comment on above: Medication Problem Start: 03-06-2023 Telephone encounter José Miguel odell MD Work Phone: Internal Medicine [place] Comment on above: [facility] PT POC medication allergy Start: 02-27-2023 Telephone encounter José Miguel odell MD Work Phone: Family Medicine [place] Comment on above: [facility] Plan Start: 02-24-2023 Non-patient / Non-visit Dr. Christine Frias Work Phone: [facility] Work Phone: Start: 02-23-2023 Non-patient / Non-visit Dr. Christine Frias Work Phone: [facility] Work Phone: Start: 02-23-2023 End: 02-25-2023 Evaluation and management of inpatient Dr. José Miguel Frias Work Phone: [facility] 3 Work Phone: Start: 02-23-2023 End: 02-25-[address] José Miguel Frias Work Phone: [facility] Work Phone: Start: 12-26-2022 Telephone encounter José Miguel odell MD Work Phone: Internal Medicine [place] Comment on above: Patient Update Start: 12-22-2022 End: 12-22-2022 Patient encounter procedure José Miguel Frias MD Work Phone: Internal [facility] [place] Comment on above: Dyspnea, unspecified type (Primary Dx); Venous (peripheral) insufficiency; Stasis dermatitis of both legs; Dementia with behavioral disturbance (HCC); History of panic attacks Start: 11-29-2022 Refill José Miguel beck MD Work Phone: Internal [facility] Comment on above: Refill Request Start: 11-22-2022 End: 11-22-2022 Patient encounter procedure Nestor Hughes Work Phone: Podiatry Comment on above: Traumatic avulsion o f nail plate of toe, initial encounter (Primary Dx); Onychomycosis; Venous insufficiency; Callus Start: 11-06-2022 Orders Only José Miguel beck MD Work Phone: Internal [facility] [place] Comment on above: Major depressive dis order with current active episode, unspecified depression episode severity, unspecified whether recurrent (Primary Dx); Dementia with behavioral disturbance (HCC) Start: 10-31-2022 End: 10-31-2022 Subsequent hospital visit by physician Xr [facility] Work Phone: Radiology Comment on above: Injury of right grea t toe, initial encounter [S99.921A] Start: 10-31-2022 End: 10-31-2022 Office outpatient visit 15 minutes Nedra Cheema APRN.CNS Work Phone: Internal [facility] Comment on above: Avulsion of toenail, initial encounter (Primary Dx); Injury of right great toe, initial encounter; Cellulitis of great toe of right foot Start: 10-31-2022 Telephone encounter José Miguel odell MD Work Phone: Internal [facility] Comment on above: Patient Update Start: 10-18-2022 End: 10-18-2022 ambulatory [facility] Work Phone: Start: 10-18-2022 End: 10-18-2022 Departed Referred [facility] Start: 10-05-2022 ambulatory Bello (Pss) Rosales Martinez [facility] Comment on above: Population Health Na vigation Outreach (Cut Off care gap) Start: 09-15-2022 End: 09-15-2022 Patient encounter procedure José Miguel Frias MD Work Phone: Internal [facility] Comment on above: Acute erythematous e ruption of skin (Primary Dx); Bilateral lower extremity edema; Venous insufficiency; Primary hypertension; DDD (degenerative disc disease), lumbar Start: 09-04-2022 End: 09-04-2022 Patient encounter procedure Mckenzie Ruggiero APRN.CNP Work Phone: [facility] Comment on above: Acute erythematous e ruption of skin (Primary Dx); Venous insufficiency; Bilateral lower extremity edema Start: 08-25-2022 End: 08-25-2022 [facility] Work Phone: Start: 08-25-2022 End: 08-25-2022 Departed Referred [facility] Start: 08-10-2022 Telephone encounter José Miguel odell MD Work Phone: [facility] Comment on above: Medication Question Start: 08-03-2022 End: 08-03-2022 Patient encounter procedure José Miguel Frias MD Work Phone: Internal [facility] Comment on above: Dementia with behavi oral disturbance (HCC) (Primary Dx); Major depressive disorder with current active episode, unspecified depression episode severity, unspecified whether recurrent; Seborrheic dermatitis of scalp; Hypothyroidism, acquired; Hyperlipidemia LDL goal <130 Start: 08-01-2022 ambulatory Kaye CMKENNA SOCIAL MEDIA MARKETER Comment on above: Patient Update (Conf erenced facility SENIOR MARKET RESEARCH ANALYST to affiliate line ) Start: 08-01-2022 Telephone encounter José Miguel odell MD Work Phone: Family Medicine [place] Comment on above: Results Confusion Start: 07-31-2022 Refill José Miguel beck MD Work Phone: Internal [facility] Comment on above: Refill Request Start: 07-28-2022 End: 07-28-2022 [facility] Work Phone: Start: 07-28-2022 End: 07-28-2022 Departed Referred [facility] Start: 07-28-2022 Registered Referred [facility] Start: 07-26-2022 End: 07-26-2022 Patient encounter procedure José Miguel Frias MD Work Phone: [facility] [place] Comment on above: Dementia with behavi oral disturbance (HCC) (Primary Dx); Major depressive disorder with current active episode, unspecified depression episode severity, unspecified whether recurrent; Venous (peripheral) insufficiency; Primary hypertension Start: 07-18-2022 End: 07-18-2022 ambulatory [facility] Work Phone: Start: 07-18-2022 End: 07-18-2022 Departed Referred [facility] Start: 07-12-2022 Telephone encounter José Miguel odell MD Work Phone: Internal Medicine [place] Comment on above: Patient Update Start: 07-07-2022 ambulatory José Miguel beck MD Work Phone: [facility] Comment on above: Allied Health Visit (Medication Adherence Outreach) Start: 07-01-2022 End: 07-01-2022 Patient encounter procedure José Miguel Frias MD Work Phone: [facility] [place] Comment on above: Sinusitis, unspecifi ed chronicity, unspecified location (Primary Dx); Dementia with behavioral disturbance (HCC); Major depressive disorder with current active episode, unspecified depression episode severity, unspecified whether recurrent Start: 06-27-2022 Telephone encounter José Miguel odell MD Work Phone: [facility] [place] Comment on above: behavioral change Start: 06-14-2022 End: 06-14-2022 Patient encounter procedure José Miguel Frias MD Work Phone: [facility] [place] Comment on above: Dementia with behavi oral disturbance (Primary Dx); Major depressive disorder with current active episode, unspecified depression episode severity, unspecified whether recurrent; Primary hypertension; Hypothyroidism, acquired; Hyperlipidemia LDL goal <130; Impacted cerumen of both ears Start: 05-17-2022 End: 05-17-2022 ambulatory [facility] Work Phone: Start: 05-17-2022 End: 05-17-2022 Departed Referred [facility] Thais Aguirre Start: 04-26-2022 End: 04-27-2022 Emergency department patient visit [facility] Start: 04-08-2022 End: 04-08-2022 Emergency department patient visit [facility] Start: 03-26-2022 End: 03-26-2022 Emergency department patient visit [facility] Start: 08-23-2021 Refill José Miguel beck MD Work Phone: Internal [facility] Comment on above: Prescription Refills Start: 08-18-2021 Refill Cecilio PRICE RN.UI UX WEB DEVELOPER, DNP Work Phone: [facility] Comment on above: Refill Request Start: 08-09-2021 ambulatory José Miguel beck MD Work Phone: Internal Medicine [facility] [place] Start: 07-24-2021 Refill Cecilio PRICE RN.[facility] Work Phone: [facility] Comment on above: Refill Request Procedures Date [...] Radex foot complete minimum 3 views Nedra Cheema UPHOLSTERY DEPARTMENT SUPERVISOR.AIRDROP SYSTEMS TECHNICIAN Work Phone: Start: 04-26-2022 Plain chest X-ray [...] 10-02-2013 Follow Up Appt 1 year [facility] Start: 10-02-2013 End: 10-10-2013 Lipid 1996 panel [...] Author Start: 08-03-2025 DIABETES SCREEN DIABETES SCREEN [facility] Start: 08-03-2025 Diabetes Screening Diabetes Screenin g [facility] Start: 01-06-2024 Covid-19 Vaccine () Covid-19 Vaccine () [facility] Start: 01-06-2024 Covid-19 Vaccine ( season) Covid-19 Vaccine ( season) [facility] Start: 01-06-2024 Influenza vaccination C [facility] Start: 12-12-2023 End: 12-12-2023 Patient encounter procedure 12/12/2023 3:00 PM EDT Office Visit [facility] [place] [address] [place] [address] Mckenzie Funk, UPHOLSTERY DEPARTMENT SUPERVISOR.UI UX WEB DEVELOPER [address] [facility] [place] [address] Annual Medicare Wellness [facility] [place] Comment on above: Annual Medicare Well ness Start: 09-05-2023 COVID-19 VACCINE (4 - Booster for Pfizer series) COVID-19 VACCINE (4 - Booster for Pfizer series) [facility] Comment on above: Postponed from 08/09 (Declined at this time) Start: 09-05-2023 COVID-19 VACCINE (4 - Pfizer series) COVID-19 VACCINE (4 - Pfizer series) [facility] Comment on above: Postponed from 08/09 (Declined at this time) Start: 09-05-2023 SHINGRIX VACCINE (2 of 3) LEMUS GRIX VACCINE (2 of 3) [facility] Comment on above: Postponed from 08/31 (Declined at this time) Start: 09-05-2023 Urine microalbumin profile [facility] Comment on above: Postponed from 05/21 (Declined at this time) Start: 05-07-2023 Advance Directive Discussion Advance Directive Discussion [facility] Start: 02-25-2023 Patient discharge [facility] Start: 02-24-2023 Referral to service [facility] Start: 02-23-2023 Following clinical pathway protocol [facility] Start: 02-23-2023 Ambulation without limitation [facility] Start: 02-23-2023 Assessment of risk o f venous thromboembolism [facility] Start: 02-23-2023 Insertion of cathete r into peripheral vein [facility] Start: 02-23-2023 Measuring intake and output [facility] Start: 02-23-2023 Providing care accor ding to standard [facility] Start: 02-23-2023 Referral to occupati onal therapist [facility] Start: 02-23-2023 Referral to service [facility] Start: 02-23-2023 [facility] Start: 02-23-2023 Admission procedure [facility] Start: 02-23-2023 End: 02-24-2023 [facility] Start: 02-23-2023 Urine culture Urine Culture [facility] Start: 02-23-2023 Patient referral to dietitian [facility] Start: 01-05-2023 Covid-19 Vaccine () Covid-19 Vaccine () [facility] Start: 01-05-2023 Influenza vaccination C [facility] Start: 06-15-2022 End: 08-15-2022 CBC panel - Blood by Automated count CBC Lab Routine Primary hypertension Expected: 06/15/2022, Expires: 08/15/2022 [facility] Work Phone: Comment on above: Expected: 06/15/2022 , Expires: 08/15/2022 Start: 06-15-2022 End: 08-15-2022 Comprehensive metabolic 2000 panel - Serum or Plasma COMP METABOLIC PANEL Lab Routine Hyperlipidemia LDL goal <130 Expected: 06/15/2022, Expires: 08/15/2022 [facility] Work Phone: Comment on above: Expected: 06/15/2022 , Expires: 08/15/2022 Start: 06-15-2022 End: 08-15-2022 Lipid 1996 panel - Serum or Plasma LIPID PANEL BASIC Lab Routine Hyperlipidemia LDL goal <130 Expected: 06/15/2022, Expires: 08/15/2022 [facility] Work Phone: Comment on above: Expected: 06/15/2022 , Expires: 08/15/2022 Start: 06-15-2022 End: 08-15-2022 Thyrotropin [Units/volume] in Serum or Plasma TSH BLD Lab Routine Hypothyroidism, acquired Expected: 06/15/2022, Expires: 08/15/2022 [facility] Work Phone: Comment on above: Expected: 06/15/2022 , Expires: 08/15/2022 Start: 05-13-2022 DIABETES SCREEN DIABETES SCREEN [facility] Start: 05-07-2022 ADVANCE DIRECTIVE DISCUSSION ADVANCE DIRECTIVE DISCUSSION [facility] Start: 03-26-2022 [facility] Work Phone: Start: 01-05-2022 Influenza vaccination C [facility] Start: 08-09-2021 End: 10-09-2021 CBC panel - Blood by Automated count CBC Lab Routine Medication management Expected: 08/09/2021, Expires: 10/09/2021 [facility] Work Phone: Comment on above: Expected: 08/09/2021 , Expires: 10/09/2021 Start: 08-09-2021 COVID-19 VACCINE (4 - Booster for Pfizer series) COVID-19 VACCINE (4 - Booster for Pfizer series) [facility] Start: 08-09-2021 End: 10-09-2021 SCHEDULE LAB TESTING SCHEDULE LAB TESTING Lab Routine Expected: 08/09/2021, Expires: 10/09/2021 [facility] Work Phone: Comment on above: Expected: 08/09/2021 , Expires: 10/09/2021 Start: 05-07-2021 ADVANCE DIRECTIVE DISCUSSION ADVANCE DIRECTIVE DISCUSSION [facility] Start: 01-05-2021 Influenza vaccination INFLUENZA (#1) [facility] Start: 12-29-2020 COVID-19 VACCINE (3 - Booster for Pfizer series) COVID-19 VACCINE (3 - Booster for Pfizer series) [facility] Start: 02-20-2018 End: 02-20-2018 Appointment [facility] Work Phone: Start: 02-22-2017 End: 02-22-2017 Follow Up Appt 1 year Follow Up Appt 1 year [facility] Work Phone: Start: 02-22-2017 End: 02-22-2017 Follow Up Appt Other Follow Up Appt Other [facility] Work Phone: Start: 02-22-2017 End: 02-22-2017 PFM PFM [facility] Work Phone: Start: 06-29-2016 End: 12-30-2015 *Hepatic Function Panel *Hepatic Function Panel [facility] Work Phone: Start: 06-29-2016 End: 12-30-2015 Lipid 1996 panel *Lipid Profile CC [facility]CP [facility] Work Phone: Start: 02-07-2016 End: 02-07-2016 Follow Up Appt 1 year Follow Up Appt 1 year [facility] Work Phone: Start: 02-07-2016 End: 02-07-2016 PFM PFM [facility] Work Phone: Start: 10-22-2015 End: 12-28-2015 Lipid 1996 panel *Lipid Profile CC PCP [facility] Work Phone: Start: 05-21-2015 Urine microalbumin profile [facility] Start: 04-06-2015 End: 04-22-2015 *Hepatic Function Panel *Hepatic Function Panel [facility] Work Phone: Start: 04-06-2015 End: 04-22-2015 Lipid 1996 panel *Lipid Profile CC PCP [facility] Work Phone: Start: 01-04-2015 End: 01-04-2015 Follow Up Appt 1 year Follow Up Appt 1 year [facility] Work Phone: Start: 01-04-2015 End: 01-04-2015 PFM PFM [facility] Work Phone: Start: 04-06-2014 End: 10-26-2014 *Hepatic Function Panel *Hepatic Function Panel [facility] Work Phone: Start: 04-06-2014 End: 10-26-2014 Lipid 1996 panel *Lipid Profile CC PCP [facility] Work Phone: Start: 10-02-2013 End: 10-10-2013 *Hepatic Function Panel *Hepatic Function Panel [facility] Work Phone: Start: 10-02-2013 [...] hour holter monitor 48 hour holter monitor [facility] Work Phone: Start: 2012 RSV Vaccine (1 - 1-d ose 75+ series) RSV Vaccine (1 - 1-dose 75+ series) [facility] Start: 05-16-2012 End: 05-16-2012 Ecg routine ecg w/least 12 lds w/i&r EKG (In office) [facility] Work Phone: Start: 05-16-2012 End: 10-02-2013 Follow Up Appt 1 year Follow Up Appt 1 year [facility] Work Phone: Start: 05-16-2012 [...] 3) LEMUS GRIX VACCINE (2 of 3) [facility] Start: 1997 RSV Vaccine (1 - 1-d ose 60+ series) RSV Vaccine (1 - 1-dose 60+ series) [facility] Bacteria identified in Urine by Culture Urine Culture [facility] Work Phone: End: 12-23-2023 ECG COMPLETE ECG COMPLETE ECG Routine Dyspnea, unspecified type 1 Occurrences starting 12/22/2022 until 12/23/2023 [facility] Work Phone: Comment on above: 1 Occurrences starti ng 12/22/2022 until 12/23/2023 In-vitro immunologic test [facility] 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 [facility] Patient Education [facility] Work Phone: Patient referral [facility] Work Phone: End: 11-30-2023 XR FOOT GENERAL 3V AP/LAT/OBL RIGHT XR FOOT GENERAL 3V AP/LAT/OBL RIGHT Radiology Routine Injury of right great toe, initial encounter 1 Occurrences starting 10/31/2022 until 11/30/2023 [facility] Work Phone: Comment on above: 1 Occurrences starti ng 10/31/2022 until 11/30/2023 XR FOOT GENERAL 3V AP/LAT/OBL RIGHT XR FOOT GENERAL 3V AP/LAT/OBL RIGHT Radiology Routine Injury of right great toe, initial encounter 10/31/2022 4:35 PM EDT [facility] Work Phone: [facility] Immunizations Immunization Date Immunization Notes Care Provider [facility] 06-14-2021 Covid (Pfizer) Dr. José Miguel Frias Work Phone: [facility] 06-14-2021 influenza, high-dose , quadrivalent vaccine (FLUZONE HIGH DOSE QUADRIVALENT) José Miguel Frias MD Work Phone: [facility] Work Phone: 06-14-2021 influenza virus vacc ine, unspecified formulation José Miguel Frias MD Work Phone: [facility] 07-29-2020 COVID-19 vaccine, ag e 12+ yr (Symtavision-OYO Sportstoys - PURPLE [facility]) Cecilio Swartz UPHOLSTERY DEPARTMENT SUPERVISOR.UI UX WEB DEVELOPER, DNP Work Phone: [facility] 07-08-2020 COVID-19 vaccine, ag e 12+ yr (Symtavision-OYO Sportstoys - PURPLE TOP) Cecilio Swartz APRN.[facility] Work Phone: [facility] 01-15-2020 influenza, high-dose , quadrivalent vaccine (FLUZONE HIGH DOSE QUADRIVALENT) Cecilio Swartz APRN.[facility] Work Phone: [facility] 02-11-2019 Influenza, high dose seasonal Dr. Jos éMiguel Frias MD Work Phone: [facility] 02-11-2019 influenza, high dose seasonal, preservative-free Cecilio Swartz APRN.[facility] Work Phone: [facility] 02-11-2018 Influenza, high dose seasonal Dr. José Miguel Frias MD Work Phone: [facility] 02-11-2018 influenza, high dose seasonal, preservative-free Cecilio Swartz APRN.[facility] Work Phone: [facility] 01-23-2017 Influenza, high dose seasonal Dr. José Miguel Frias MD Work Phone: [facility] 01-23-2017 influenza, high dose seasonal, preservative-free Cecilio Swartz APRN.[facility] Work Phone: [facility] 03-09-2016 Influenza, high dose seasonal Dr. José Miguel Frias MD Work Phone: [facility] 03-09-2016 influenza, high dose seasonal, preservative-free Cecilio Swartz APRN.[facility] Work Phone: [facility] 03-09-2016 pneumococcal conjuga te vaccine, 13 valent Cecilio Swartz APRN.[facility] Work Phone: [facility] 05-20-2015 tetanus and diphther ia toxoids, adsorbed, preservative free, for adult use (2 Lf of tetanus toxoid and 2 Lf of diphtheria toxoid) Dr. José Miguel Frias Work Phone: [facility] 05-20-2015 tetanus and diphther ia toxoids, adsorbed, preservative free, for adult use (5 Lf of tetanus toxoid and 2 Lf of diphtheria toxoid) Cecilio Swartz APRN.[facility] Work Phone: [facility] 02-15-2015 Influenza, high dose seasonal Dr. José Miguel Frias MD Work Phone: [facility] 02-15-2015 influenza, high dose seasonal, preservative-free Cecilio Swartz APRN.[facility] Work Phone: [facility] 02-12-2014 Influenza, high dose seasonal Dr. José Miguel Frias MD Work Phone: [facility] 02-12-2014 influenza, high dose seasonal, preservative-free Cecilio Swartz APRN.[facility] Work Phone: [facility] 03-18-2013 influenza virus vacc ine, unspecified formulation Cecilio Swartz APRN.[facility] Work Phone: [facility] 02-05-2012 influenza virus vacc ine, unspecified formulation Cecilio Swartz APRN.[facility] Work Phone: [facility] 03-07-2011 influenza virus vacc ine, unspecified formulation Cecilio Swartz APRN.[facility] Work Phone: [facility] 03-08-2010 influenza virus vacc ine, unspecified formulation Cecilio Swartz APRN.[facility] Work Phone: [facility] 07-06-2009 zoster vaccine, live Cecilio Swartz APRN.[facility] Work Phone: [facility] 05-25-2009 novel influenza-H1N1 -09, preservative-free, injectable José Miguel Frias MD Work Phone: [facility] Work Phone: 01-25-2009 influenza virus vacc ine, unspecified formulation Cecilio Swartz APRN.[facility] Work Phone: [facility] Work Phone: 03-19-2008 influenza virus vacc ine, unspecified formulation Cecilio Swartz APRN.[facility] Work Phone: [facility] Work Phone: 03-11-2007 influenza virus vacc ine, unspecified formulation Cecilio Swartz APRN.[facility] Work Phone: [facility] 01-24-2007 pneumococcal polysaccharide vaccine, 23 valent Cecilio Swartz APRN.[facility] Work Phone: [facility] 03-20-2006 influenza virus vacc ine, unspecified formulation Cecilio Swartz APRN.[facility] Work Phone: [facility] Work Phone: 03-13-2005 influenza virus vacc ine, whole virus Cecilio Swartz APRN.[facility] [facility] Work Phone: [facility] Payers Date Payer Category Payer Self-pay [id number] 2018 Unknown ANTHEM [facility] ANTHEM MEDIBLUE ACCESS [id number] 2018-Present [phone] [address] [place] [address] [facility] [id number] 2018 Unknown [id number] 2012 Medicare [id number] Medicare MEDICARE PART A B [id number] Unknown [id number] Unknown [id number] 2..840.1.122855.3.579.2.462 Unknown [id number] 2.16.840.1.026464.3.579.2.462 Unknown [id number] 2.16.840.1.795864.3.579.2.462 Unknown [id number] 2.16.840.1.198274.3.579.2.462 Unknown [id number] 2.16.840.1.334315.3.579.2.462 Unknown [id number] 2.16.840.1.749318.3.579.2.462 Unknown [id number] 2.16.840.1.639304.3.579.2.462 Unknown [id number] 2.16.840.1.873693.3.579.2.462 Unknown [id number] 2.16.840.1.478673.3.579.2.462 Unknown [id number] 2.16.840.1.565645.3.579.2.462 Unknown [id number] 2.16.840.1.263752.3.579.2.462 Unknown [id number] [id number] Unknown [id number] Social History Date Type Detail Facility Start: 06-14-2022 End: 04-11-2024 Tobacco smoking status NHIS Never smoked tobacco [facility] Start: 05-11-2021 End: 05-29-2023 Alcohol intake Current drinker of alcohol (finding) [facility] Start: 1935 Sex Assigned At Not on file [facility] Start: 03-26-2022 End: 02-23-2023 Tobacco smoking status CTIS Unknown if ever smoked [facility] Start: 1935 Sex Assigned At Female [facility] Start: 06-14-2022 Tobacco use and exposure Smokeless tobacco non-user [facility] Work Phone: Start: 09-08-2022 End: 11-22-2022 History of Social function [facility] Work Phone: Start: 09-08-2022 End: 11-22-2022 Tobacco use panel [facility] Work Phone: Adult Depression Screening Assessment 2 [facility] Work Phone: Medical Equipment Procedure Code Equipment Code Equipment Origin al Text Equipment Identifier Dates Plug Perfix Bard Medium Taper Polypropylene 1.55x1.3in Surgical - [id number] Start: 05-30-2016 Goals Date Patient Goal Desired Activity /State Personal health goal Personal health goal Functional Status Date Assessment Result Facility 02-25-2023 Functional status Chair;Bathroom Privileg e [facility] Work Phone: Mental Status Date Assessment Result Facility 02-25-2023 Cognitive function Appropriate;Cooperativ e [facility] Work Phone: Clinical Notes 08-01-2017 to 10-06-2024 Telephone Encounter - Lina Berry LPN - 04/24/2024 11:05 AM ESTTelephone Encounter - Lina Berry LPN - 04/24/2024 11:05 AM Tammy Espinosa MA - 12/14/2023 8:40 AM EDT Note Date & Type Note Facility 10-06-2024 Radiology Diagnostic study note [facility] Imaging Services [address] [place] [address] [id number] Brain/Head without Contrast MR#: [id number] Acct: [id number] Name: CHRISTY FOFANA Rep #: [id number] : 1935 F 89 From: Twyla Ferreira MD PCP: Dr. José Miguel Frias MD Status: P RE ER Study:Brain/Head without Contrast Date of Exa m: 10/06/24 Exam# [id number] Ordering Dr: Lc Lo MD PROCEDURE: BRAIN/HEAD [...] IMPRESSION: No acute intracranial abnormality. Reading Location: [id number] CC: Dr. Lc Lo MD; Dr. José Miguel Frias MD ~ Certified Drug Counselor: Signed [facility] 04-24-2024 Telephone encount er Note PCP changed to in house Doctor. Lina Berry LPN [facility] 04-24-2024 Miscellaneous Notes Formattin g of this [...] Hernandez MA April 23, 2024 4:08 PM [facility] is calling José Miguel Frias MD today to request a medication not on current med list: Disp Refills Start End hydrOXYzine pamoate (VISTARIL) 25 mg capsule 30 5 Patient has been identified by name and birthdate. Closing statement: Results or non-symptom based questions: Thank you for calling [facility], your call will be returned within the next business day. Niecy Avilez documented in this encounter [facility] 04-23-2024 Telephone encount er Note Patient's request [...] under Prescriber care PCP Emmanuel Park DO [facility] 04-23-2024 Telephone encount er Note Prescription Refill [...] Hernandez MA April 23, 2024 4:08 PM [facility] 04-23-2024 Telephone encount er Note Daughter states that Christy is patient of in house doctors Dr. Park. Disregard refill requests. [facility] 04-23-2024 Miscellaneous Notes Formattin g of this [...] Yes NOTE: patient lives at assisted living [facility] The last office visit in the department: [...] 2024 2:23 PM documented in this encounter [facility] 04-23-2024 Telephone encount er Note Assisted Living [facility] is calling José Miguel Frias MD today to request a medication not on current med list: Disp Refills Start End hydrOXYzine pamoate (VISTARIL) 25 mg capsule 30 5 Patient has been identified by name and birthdate. Closing statement: Results or non-symptom based questions: Thank you for calling [facility], your call will be returned within the next business day. Niecy Avilez [facility] 04-23-2024 Telephone encount er Note Prescription Refill Information The patient has been identified by name and date of : Yes Caregiver verified no other encounters exist for this prescription request: Yes Caregiver confirmed with patient/requestor that no other refills are due, in the near future, with this provider at this time: Yes NOTE: patient lives at [facility] living [facility] The last office visit in the department: [...] Niecy Avilez April 23, 2024 2:23 PM [facility] 12-19-2023 Telephone encount er Note POPULATION HEALTH NAVIGATION OUTREACH Action/FYI Reason for Outreach Care Gap/HCC or Scheduling Wellness Visits Care Gaps due: Medicare Annual Wellness Visit Patient Contacted: Patient is currently at [facility], she is seeing in-house Dr. Emmanuel Park Navigation Signature: Lina Berry LPN December 19, 2023 4:51 PM [facility] 12-19-2023 Miscellaneous Notes Formattin g of this note is different from the original. POPULATION HEALTH NAVIGATION OUTREACH Action/FYI Reason for Outreach Care Gap/HCC or Scheduling Wellness Visits Care Gaps due: Medicare Annual Wellness Visit Patient Contacted: Patient is currently at [facility], she is seeing in-house Dr. Emmanuel Park Navigation Signature: Lina Berry LPN December 19, 2023 4:51 PM documented in this encounter [facility] 12-19-2023 Note HNO ID: [id number] Author: ODALIS BRIGGS MA Service: ? Author Type: Paper Products Inspector Type: Progress Notes Filed: 12/19/2023 08:49 Note Text: POPULATION HEALTH NAVIGATION OUTREACH Action/FYI Letter received and sent to be mailed. Navigation Signature: Odalis Briggs Population Health Navigator December 19, 2023 8:49 AM [facility] 12-14-2023 Note HNO ID: [id number] Author: TAMMY ELLIS MA Service: ? Author Type: Paper Products Inspector Type: Progress Notes Filed: 12/14/2023 11:14 Note Text: POPULATION HEALTH NAVIGATION OUTREACH Action/FYI Patient is on [facility] CURRENT ROSTER Workbench list for below and [...] Ellis MA December 14, 2023 8:51 AM [facility] 12-14-2023 History of Presen t illness Narrative POPULATION HEALTH NAVIGATION OUTREACH Action/I Patient is on [facility] CURRENT ROSTER Workbench list for below and [...] 2023 8:51 AM documented in this encounter [facility] 12-14-2023 Note Patient Outreach (TINA TNAV) CHRISTY FOFANA ([id number]) 1935 F Date Time Provider Department 12/14/23 TAMMY ELLIS During your visit today, we recorded the following information about you: Tammy Ellis MA 12/14/2023 11:14 AM Signed POPULATION HEALTH NAVIGATION OUTREACH Action/FYI Patient is on [facility] CURRENT ROSTER Workbench list for below and [...] Date Reviewed: 05/29/2023 Reviewed by: Mckenzie Funk, CUATE.UI UX WEB DEVELOPER - Fully Assessed Reason for Visit: Population Health Navigation Outreach [3910] Cmt: Leo Cooper - [place] [facility] Prescriptions as of 12/19/2023 - furosemide [...] 03/04/2012 06/14/2022 Eosi (more content not included)... [facility] 10-09-2023 Note HNO ID: [id number] Author: TAMMY ELLIS MA Service: ? Author Type: Paper Products Inspector Type: Progress Notes Filed: 10/09/2023 08:53 Note Text: POPULATION HEALTH NAVIGATION OUTREACH Action/FYI Patient is on [facility] CURRENT ROSTER Workbench list for below and needs appointment to address: RSV Vaccine(1 - 1-dose 60+ series) Shingrix Vaccine(2 of 3) DTaP,Tdap,Td Vaccine(1 - Tdap) Covid-19 Vaccine( - season) Advance Directive Discussion No results [...] labs: Medicare Annual Wellness Visit 12/12/2023 in [facility] with MCKENZIE FUNK - Annual Medicare Wellness, Please address due care gaps and HCC gap closure HCC related Navigation Signature: Tammy Ellis MA October 09, 2023 7:16 AM [facility] 10-09-2023 History of Presen t illness Narrative POPULATION HEALTH NAVIGATION OUTREACH Action/FYI Patient is on [facility] CURRENT ROSTER Workbench list for below and needs appointment to address: RSV Vaccine(1 - 1-dose 60+ series) Shingrix Vaccine(2 of 3) DTaP,Tdap,Td Vaccine(1 - Tdap) Covid-19 Vaccine(2022- season) Advance Directive Discussion No results found [...] labs: Medicare Annual Wellness Visit 12/12/2023 in [facility] with MCKENZIE FUNK - Annual Medicare Wellness, Please address due care gaps and HCC gap closure HCC related Navigation Signature: Tammy Ellis MA October 09, 2023 7:16 AM documented in this encounter [facility] 10-09-2023 Note Patient Outreach (NE TNAV) CHRISTY FOFANA ([id number]) 1935 F Date Time Provider Department 10/09/23 TAMMY ELLIS During your visit today, we recorded the following information about you: Tammy Ellis MA 10/09/2023 8:53 AM Signed POPULATION HEALTH NAVIGATION OUTREACH Action/FYI Patient is on [facility] CURRENT ROSTER Workbench list for below and needs appointment to address: RSV Vaccine(1 - 1-dose 60+ series) Shingrix Vaccine(2 of 3) DTaP,Tdap,Td Vaccine(1 - Tdap) Covid-19 Vaccine(2022- season) Advance Directive Discussion No results found [...] labs: Medicare Annual Wellness Visit 12/12/2023 in [facility] with MCKENZIE FUNK - Annual Medicare [...] Date Reviewed: 05/29/2023 Reviewed by: Mckenzie Funk APRN.UI UX WEB DEVELOPER - Fully Assessed Reason for Visit: Population Health Navigation Outreach [3910] Cmt: Leo [facility] CURRENT ROSTER workbench - AWV, Care gaps, [facility] gap closure - [place] [facility] Prescriptions as of 12/19/2023 - furosemide [...] mention of hem* (more content not included)... [facility] 08-30-2023 Note HNO ID: [id number] Author: TAMMY ELLIS MA Service: ? Author Type: Paper Products Inspector Type: Progress Notes Filed: 08/30/2023 11:26 Note Text: POPULATION HEALTH NAVIGATION OUTREACH Action/FYI Patient is on [facility] CURRENT ROSTER Workbench list for below and [...] Ellis MA August 30, 2023 7:28 AM [facility] 08-30-2023 History of Presen t illness Narrative POPULATION HEALTH NAVIGATION OUTREACH Action/FYI Patient is on [facility] CURRENT ROSTER Workbench list for below and needs appointment to address: RSV Vaccine(1 - 1-dose 60+ series) Covid-19 Vaccine() Advance Directive Discussion No results [...] 2023 7:28 AM documented in this encounter [facility] 08-30-2023 Note Patient Outreach (NE TNAV) CHRISTY FOFANA ([id number]) 1935 F Date Time Provider Department 08/30/23 TAMMY ELLIS NETRUBYV During your visit today, we recorded the following information about you: Tammy Ellis MA 08/30/2023 11:26 AM Signed POPULATION HEALTH NAVIGATION OUTREACH Action/FYI Patient is on [facility] CURRENT ROSTER Workbench list for below and needs appointment to address: RSV Vaccine(1 - 1-dose 60+ series) Covid-19 Vaccine() Advance Directive Discussion No results [...] Date Reviewed: 05/29/2023 Reviewed by: Mckenzie Funk, UPHOLSTERY DEPARTMENT SUPERVISOR.UI UX WEB DEVELOPER - Fully Assessed Reason for Visit: Population Health Navigation Outreach [3910] Cmt: Leo [facility] CURRENT ROSTER workbench - AWV, Care gaps, HCC gap closure - [place] [facility] Prescriptions as of 08/30/2023 - furosemide [...] lower limb [L03.116] (more content not included)... [facility] 05-29-2023 Note HNO ID: [id number] Author: MCKENZIE FUNK APRN.UI UX WEB DEVELOPER Service: ? Author Type: Nurse Practitioner Type: [...] Pulse 91 T (more content not included)... [facility] 04-12-2023 Miscellaneous Notes Formattin g of this note might be different from the original. Fax from [facility] for refills.asking for refill for asa 81 mg daily and multivitamin daily documented in this encounter [facility] 04-10-2023 Miscellaneous Notes Formattin g of this note might be different from the original. Form has been faxed back Fax request for refill of spironolactone received from custodial received. Patient had been placed on spironolactone diuretic for lower extremity swelling previously. Given refill for 1 additional month. Can reassess for ongoing need at upcoming visit with PCP April 19, 2023. documented in this encounter [facility] 03-26-2023 Miscellaneous Notes Formattin g of this note might be different from the original. Noted. Kristen [facility] HH Nurse calling. States they received referral for pt to have HH Nursing for leg cellulitis. Kristen states she saw patient this past Sunday and pt has no redness to legs, no open areas, no increased warmth to legs, and no s/sx cellulitis at this time. They will not be admitting pt to Nursing services at this time. Pt lives in memory care unit at [facility] and the nurses there have been educated to watch for s/sx of cellulitis. Pt has dementia and can be noncompliant with leg wraps and elevation. Breanne Boggs RN documented in this encounter [facility] 03-23-2023 Miscellaneous Notes Formattin g of this note might be different from the original. Fax from pharmacy asking for refill. documented in this encounter [facility] 03-22-2023 Miscellaneous Notes Formattin g of this note might be different from the original. Spoke with JARVIS Arnold @ [facility]. Given message from provider's office. He verbalizes understanding. Rosa M Londono RN [place] JARVIS Arnold @ [facility] calling with update. PT will see patient once next week for re-evaluation. Clayton is asking for order for nursing evaluation/treat to monitor patient's cellulitis. Please call him @ [phone] with verbal okay. Rosa M Londono, RN documented in this encounter [facility] 03-22-2023 Miscellaneous Notes Formattin g of this note might be different from the original. Maria Luisa, nurse At [facility] returning call. Message below reviewed with Maria [...] they giving lasix without potassium? Maria Luisa with [facility] calling back and pt is not on [...] Sunday. Please advise documented in this encounter [facility] 03-13-2023 Miscellaneous Notes Formattin g of this note might be different from the original. Delfina Aragon with [facility] calls to request a copy of most recent OV note be faxed to them. Faxed to [phone] per request. Ivana Foster RN documented in this encounter [facility] 03-12-2023 Miscellaneous Notes Formattin g of this note might be different from the original. Spoke to Steph/pharmacist at [facility] pharmacy, given a verbal for 28 tablets. Lina Berry LPN yes, resent Pharmacist at [facility] pharmacy reports Shweta Sneed, send Rx for keflex 500 mg take 1 capsule by mouth 4 times daily for 7 days, with quantity #14 instead of #28. Asking if she can change quantity to #28. Please phone pharmacist with verbal: [phone] documented in this encounter [facility] 03-09-2023 Miscellaneous Notes Formattin g of this note is different from the original. Reason for Disposition [1] Red area or streak [2] large (> 2 in. or 5 cm) Protocols used: Leg Swelling and [id number]-[id number] Instructed nurse to send pt to the [...] : N/A Protocols used: Leg Swelling and Fjlfn-[id number] documented in this encounter [facility] 03-07-2023 Miscellaneous Notes Formattin g of this note might be different from the original. Delfina-[facility] called and is notified of providers message and instructions. She voices understanding and reports she will call the Pt and notify her. Elsy Rosales RN Yes, allergy noted. Yes continue simvastatin. Medications reconciled with discharge summary. Schedule hospital follow up appointment. Delfina with [facility] calls to see if pcp is aware that pt is allergic to Lipitor and taking simvastatin. Delfina needs verbal from pcp that he is aware and to continue or not continue simvastatin. Sarina Gutierrez LPN documented in this encounter [facility] 03-06-2023 Miscellaneous Notes Formattin g of this note might be different from the original. Noted. Lewis PT calling from [facility] to report plan of care for patient and PT will visit patient 2 times a week for three weeks. PT will work with patient on functional mobility. No call back necessary unless provider has questions. Ivana Foster RN documented in this encounter [facility] 02-27-2023 Miscellaneous Notes Formattin g of this note might be different from the original. Left detailed vm on identified vm with provider's message below. Okay for orders below, PCP will follow Mckenzie Ruggiero APRN.UI UX WEB DEVELOPER Minerva from [facility] states pt was d/c'd over the weekend & they received notification today. Minerva is hoping to see pt tomorrow. Asking for OK for delay of start of care? 2. Asking if provider will follow? Pt hosp for SUKHI & history of dementia. Pt at [facility]. Karime Garcia LPN documented in this encounter [facility] 02-25-2023 Discharge summary Note Date/Time February 25, 2023 12:39pm [facility] Medical Records Department [address] [place] [address] Instructions for Home/Discharge Instructions 02/25/23 1236 MR#: [id number] Acct: [id number] Name: CHRISTY FOFANA Rep #:[id number] : [...] Dr. José Miguel Frias MD ~ Signed [facility] Work Phone: 1(467) 768-758010-21-2023 Progress note Author Will Bah [facility] February 24, 2023 3:14pm Note Date/Time February 24, 2023 3 :14pm [facility] Medical Records Department [address] [place] [address] [place] [address] Progress Note - Hospitalist 02/24/23 1502 MR#: [id number] Acct: [id number] Name: CHRISTY FOFANA Rep #:[id number] : 1935 87 From: Will tyler DO PCP: Dr. José Miguel Frias MD Status:A DM CHARLI Location: MS3 [id number] Reason for Visit Reason for Visit: Diagnoses [...] (Auto) 69.0, Lymph % (Auto) 18.1 L, [place] % (Auto) 9.6, Eos % (Auto) 2.5, [...] Clarity Clear, Urine pH 5.0, Ur Specific Offerle 1.015, Urine Protein Negative, Urine Glucose (UA) [...] Signed: Roger Nicolas MD at 19:55 EDT , Pelvis X-Ray 02/23/23 18:04 IMPRESSION: Normal x-ray examination of the pelvis. Electronically Signed: Roger Nicolas MD at 19:31 EDT , Cervical Spine CT 02/23/23 18:08 IMPRESSION: No acute fracture or subluxation. Electronically Signed: Roger Nicolas MD at 19:59 EDT , Chest X-Ray 02/23/23 19:00 IMPRESSION: Normal x-ray examination of the chest. Electronically Signed: Roger Nicolas MD at 19:30 EDT , Physical Exam Const alert and no [...] hypertension, hypothyroidism and depression who presented to [facility] ED on 02/23/2023 after a fall. 1. Fall, debility Patient resides in memory care unit as noted below. Accompanied by son and [id number] on admission. Had reportedly fallen 3 times [...] Resides in the memory care unit at [facility]. PT/OT/case management following as above, okay for [...] 35 minutes. Charges/Coding Visit Charges Inpatient E&M: 48555 Subs Hosp L2 02/24/23 7409 <Electronically signed by Will Bah DO> Cosigner Signature (if applicable): CC: ~ Signed [facility] Work Phone: 1(546) 138-995510-21-2023 History and physical note Author Jhonathan Londono [facility] February 24, 2023 4:36am Note Date/Time February 23, 2023 9 :13pm [facility] Medical Records Department [address] [place] [address] H&P Exam - Hospitalist 02/23/232112 MR#: [id number] Acct: [id number] Name: CHRISTY FOFANA Rep #:[id number] : 1935 87 From: Jhonathan Heart PCP: Dr. José Miguel Frias MD Status:A DM CHARLI Location: [address] HPI - General General Date of Admission: 02/23/23 Date of Service: 02/23/23 Chief Complaint: Recurrent fall, generalized weakness and lower back pain HPI Narrative CHRISTY FOFANA, is a 87 F with multiple comorbidities brought to ED by EMS from assisted living [facility]. Patient is accompanied by her daughter and [...] She recently had influenza and pneumonia shot. [facility] Medical History Anxiety Atrial fibrillation [...] her daughter near the bedside who is patient clerical assistant and her son-in-law. Recently she has decreased in activity and increased forgetfulness and memory. Rest of the features are negative except already mentioned in HPI. Vital Signs Vital Signs Vital Signs: 02/23/23 17:32 02/23/23 20:23 02/23/23 20: Temperature 97 F L Temperature Source Temporal [...] (Auto) 69.0, Lymph % (Auto) 18.1 L, [place] % (Auto) 9.6, Eos % (Auto) 2.5, [...] Clarity Clear, Urine pH 5.0, Ur Specific Offerle 1.015, Urine Protein Negative, Urine Glucose (UA) [...] Signed: Roger Nicolas MD at 19:55 EDT , Pelvis X-Ray 02/23/23 18:04 IMPRESSION: Normal x-ray examination of the pelvis. Electronically Signed: Roger Nicolas MD at 19:31 EDT Reading Location ID and State: [id number] / [employer] , Service support , Cervical Spine CT 02/23/23 18:08 IMPRESSION: No acute fracture or subluxation. Electronically Signed: Roger Nicolas MD at 19:59 EDT , Chest X-Ray 02/23/23 19:00 IMPRESSION: Normal x-ray examination of the chest. Electronically Signed: Roger Nicolas MD at 19:30 EDT Reading Location ID and State: [id number] / [employer] , Service support , Assessment & [...] daughter near the bedside is power of criminal defense attorney for health. After discussion of benefits/risks [...] per the daughter Total time spent in [id number]-[id number] encounter in discussion of advanced directive 17 [...] (Auto) 69.0, Lymph % (Auto) 18.1 L, [place] % (Auto) 9.6, Eos % (Auto) 2.5, [...] Clarity Clear, Urine pH 5.0, Ur Specific Offerle 1.015, Urine Protein Negative, Urine Glucose (UA) [...] Dr. José Miguel Frias MD ~* Signed [facility] Work Phone: 1(614) 914-416110-21-2023 Discharge summary Author De Quiroz [facility] February 23, 2023 10:22pm Note Date/Time February 23, 2023 6 :08pm [facility] Medical Records Department [address] [place] [address] Emergency Department Summary 02/23/23 MR#: [id number] Acct: [id number] Name: CHRISTY FOFANA Rep #:[id number] : 1935 87 From: De Quiroz MD PCP: Dr. José Miguel Frias MD Status:A DM CHARLI Location: MS3 [id number] HPI HPI - Fall History of Present Illness Chief Complaint: Fall Informant: family Narrative Narrative: History is from daughter and I reviewed records that came in with the patient. Patient only gives simple yes and knows at times. She presents after multiple falls. This patient does have some dementia. She is at a memory care unit at [facility]. She evidently walks with a cane normally. [...] the daughter is not sure of this. [facility] Medical History (Updated 02/23/23 @ 22:22 by [...] (Auto) 69.0 Lymph % (Auto) 18.1 L [place] % (Auto) 9.6 Eos % (Auto) 2.5 [...] Clarity Clear Urine pH 5.0 Ur Specific [place]le 1.015 Urine Protein Negative Urine Glucose (UA) [...] Reading Location ID and State: 994 / [employer] , Service support , Pelvis X-Ray 02/23/23 18:04 IMPRESSION: Normal x-ray examination of the pelvis. Electronically Signed: Roger Nicolas MD at 19:31 EDT Reading Location ID and State: 994 / [employer] , Service support , Cervical Spine CT 02/23/23 18:08 IMPRESSION: No acute fracture or subluxation. Electronically Signed: Roger Nicolas MD at 19:59 EDT Reading Location ID and State: 994 / [employer] , Service support , Chest X-Ray 02/23/23 19:00 IMPRESSION: Normal x-ray examination of the chest. Electronically Signed: Roger Nicolas MD at 19:30 EDT Reading Location ID and State: 994 / [employer] , Service support , EKG Initial [...] sign of acute ST elevation or depression. NE interval is a little bit long. QRS duration is normal and QTc is just slightly long. Management Discussion w/another healthcare provider: Hospitalist Discharge Plan Triage Chief Complaint: Fall ED Provider: De Quiroz Dx/Rx/DC Orders Clinical Impression: Multiple falls, Declining functional status, Dehydration Primary Care Provider: José Miguel Frias Disposition Disposition: Acute Care Hospital [facility] What to do if you have Problems For any increased pain, shortness of breath, bleeding, nausea or vomiting, chest pain, or any unexpected problems, contact your Primary Care Provider. Call [facility] ([phone]) or report to the closest Emergency Room. Call 911 if necessary. 02/23/232221 <Electronically signed by De Quiroz MD> Cosigner Signature (if applicable): CC: Dr. José Miguel Frias MD ~ Signed [facility] Work Phone: 1(298) 159-320608-23-2023 Miscellaneous Notes* Telephone Encounter - Mel Vaca LPN - 12/27/2022 3:20 PM EDT Patient daughter Anya calling back to check status of note. Went over notes below from Dr Frias with understanding. Daughter is going to call [facility] to check. * Telephone Encounter - José [...] hasn't been coming out to meals at [facility] because legs are painful so shedidn't eat yesterday or so far today. Patient is tolerating fluids if given. Anya asking if provider would be willing to order an antibiotic such as Keflex for bilateral lower legs and if so asking that it be sent to [facility]. Anya requests call back at [phone]. Anya reports [facility] was going to fax office as well but wanted to monitor legs for a couple ofday. Please review and advise, Ivana Foster RN documented in this encounterMercy Health08-18-2023 History of Present illness Narrative* José Miguel Frias MD - 12/22/2022 3:54 PM EDT This note was created using Ateoriter. Subjective Patient presents with: Recheck Christy Fofana [...] José Miguel Frias MD documented in this encounterMercy Health07-26-2023 Miscellaneous Notes* Telephone Encounter - Christy Yin LPN - 11/29/2022 4:01 PM EDT Per fax from pharmacy refills needed. Last seen DYE BOX OPERATOR 10/31/22. Next appt is 12/22/22 with pcp. documented in this encounterMercy Health07-19-2023 History of Present illness Narrative* Nestor Hughes [...] lifting. She went to her primary care yisican who placed her on keflex. The redness [...] these XR myself: no acute fracture ASSESSMENT: (S99.563A) Traumatic avulsion of nail plate of toe, [...] prn Nestor Hughes DPM Podiatry [address] [facility] [address] Dept: [phone] Dept * Elsy Clifton RN - 11/22/2022 [...] bilateral feet are long. Patient is from [facility] and per family they are supposed to trim her nails,but they don't. documented in this encounterMercy Health06-27-2023 Miscellaneous Notes* Telephone Encounter - José Miguel Frias MD - 10/31/2022 6:17 PM EDT Patient seen by [facility]. * Telephone Encounter - Cornelia Lane RN - 10/31/2022 1:31 PM EDT Patient's daughter call upset. Patient's bilateral feet have been more swollen the last couple of days. Patient has had issues walking because feet are so painful. One of patient's big toes is black and blue. Patient had asked custodial staff to look at it last night [...] assessed. 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 [facility] Work Phone: 1(872) 179-824906-27-2023 Instructions* Patient Instructions* Nedra Cheema APRN.CNS - [...] ordered. Take with food documented in this encounterMercy Health06-27-2023 History of Present illness Narrative* Nedra Cheema APRN.TIMMY - 10/31/2022 3:20 PM EDT SUBJECTIVE: PCP: [...] Notes nailcare is to be done a [place] but appears may not be. Review of [...] Level: 3 - Low documented in this encounterMercy Health06-01-2023 History of Present illness Narrative* Bello Caba - 10/05/2022 10:49 AM EDT POPULATION HEALTH NAVIGATION OUTREACH Action/ Past due for wellness visit, F/U 12/16/22. LVM Patient Identified by Name and : NO Outreach Outcome/Action Unable to reach patient: Left message Did you use a PCP flex slot to schedule this appointment? N/A Reason for Outreach Care Gap or Scheduling/Wellness visits Payer: Payor: [employer] / Plan: ANTHEM MEDIBLUE ACCESS / Product Type: PPO / Care Gap Reviewed:: Annual Wellness visit Follow-up appointment Reminder: Reminder note to check Health Maintenance for items below Health Maintenance items due: ADVANCE DIRECTIVE DISCUSSION Never done Navigation Signature: Bello Caba October 05, 2022 10:49 AM documented in this encounterMercy Health05-12-2023 History of Present illness Narrative* José Miguel Frias MD - 09/15/2022 4:53 PM EDT This note was created using Anke. Subjective Christy Fofana is a 87 year old female was here with her daughter for follow up of cellulitis of both legs. Erythema and swelling were better. She finished cephalexin. TAC was being applied. Compression stockings prescription was printed, but there was a message that this needed to be sent to the [facility] pharmacy. Prescription was also needed for Tylenol standing order for chronic back pain just ordered via fax. F She was now seen at the [facility] by a mental health provider group, and [...] José Miguel Frias MD documented in this encounterMercy Health05-01-2023 History of Present illness Narrative* Mckenzie Older, UPHOLSTERY DEPARTMENT SUPERVISOR.UI UX WEB DEVELOPER - 09/04/2022 1:54 PM EDT CC: Patient [...] plan. Mckenzie Ruggiero APRN.CNP documented in this encounterMercy Health04-11-2023 Miscellaneous Notes* Telephone Encounter - José Miguel [...] settle down. Please advise documented in this encounterMercy Health03-30-2023 Instructions* Patient Instructions* José Miguel Frias MD - 08/03/2022 2:50 PM EDT FASTING LABS TODAY IN OUR LAB. documented in this encounterMercy Health03-30-2023 History of Present illness Narrative* José Miguel Frias MD - 08/03/2022 2:44 PM EDT This note was created using Anke. Subjective Christy Fofana is a 87 year [...] that patient will be staying here in [place]. Fasting labs were not drawn at the [facility] is fasting today and will have these done here today. José Miguel Frias MD documented in this encounterMercy Health03-29-2023 Miscellaneous Notes* Telephone Encounter - Christy Yin SOL - 08/02/2022 4:45 PM EDT THIS ENCOUNTER WAS PRINTED AND FAXED ALTHOUGH [facility] THE WRITE THE ORDER AND MAIL IT TO THE PROVIDER. * Telephone Encounter - Ivana Foster RN - 08/02/2022 4:26 PM EDT Randi with [facility] calls to say they need a signed order from provider to discontinue Zoloft. Requesting it be faxed to [phone] today. Ivana Foster RN * Telephone Encounter [...] like to have an answer today. The custodial told her they can not hold the doctor's medication Zoloft with out an order to stop it . Please review and advise daughter and [facility]. Daughter feels what's is going on is because of the Zoloft. It is the only thing thatis new. Rash per daughter was severe along with what she was doing. Sandhya Payne LPN * Telephone Encounter - Sarina Gutierrez LPN - 08/01/2022 4:51 PM EDT Pt's daughter calls to report she saw pt Sun 07/30 at [facility] and pt was extremely agitated but otherwise ok. Daughter reports today pt is very confused stating she does not live at [facility]. Daughter reports pt is hallucinating saying she [...] back. Sarina Gutierrez LPN documented in this encounterMercy Health03-29-2023 Miscellaneous Notes* Telephone Encounter - Christy Yin LPN - 08/02/2022 10:19 AM EDT Pcp completed admission forms from facility in [place]. They will be in medical records for cigar packer and picker. * Telephone Encounter - Mikal Elliott Ma - 08/01/2022 4:32 PM EDT Sarina Gutierrez LPN KL 4:06 PM Note [facility] nurse with [facility] returns call for results from tb lab and Covid test. Cory reportssomeone called them earlier today asking for results from 's office. Do not see TE for this. Cory reports tb lab is still in process at [facility]. Cory was advised it could be a [...] all in agreement to transfer pt to [facility]. Charo Rich know when completed she will notify [...] screening for infectious disease needed. Please have [facility] draw blood TB test and Covid PCR [...] they could locate the healthcare POA. Thuy Newsome RN * Telephone Encounter - Odalis Herman - 07/26/2022 11:40 AM EDT Sandy called regarding Mom stating it is okay for her sister to come for appointment but not to give paperwork regarding the move to [place] to her. Stating that sister is not aware of move. Carly indicates she and her brother Joel have the POA. She can be called at [phone] at Noon if possible. States that we [...] team ok to continue corresponding with patients patient clerical assistant/emergencycontact (Lovely) until we have documentation otherwise. 07/26/22: Called Lovely to ask about medical POA and she stated it was herself and Joel. She didn't have the paperwork, Joel did. I informed her we are receiving contradicting information and we needed someone to provide us actual documentation. We also have paperwork for an admission to a [facility]. Lovely was unaware of this paperwork. She [...] Sandy) are wanting to move pt to [facility]. This move will happen in the beginning of August. They are asking that this not be mentioned to Daughter Joan they brings her to the appt. They still want the appt 07/26/22. Please review admission forms. When completed call Sandy back and they can decide how they want to get the paperwork. They are coming to [place] at the end of this move to clean out the home and list the home with a realty. * Telephone Encounter - Christy Yin LPN - 07/18/2022 9:40 AM EDT reviewing with administration. [facility] sent a DPOA signed 06/12/22 with naming Joel Fofana and Joan Badillo co agents to act in pts best interest. What mickie Delgado mailed to pcp was Paresh Fofana's DPOA [...] patient contact not to be informed? Consult Booking Agent. * Telephone Encounter - Eliza Adame Pss - 07/12/2022 8:24 AM EST Daughter from [place] sending paperwork and POA forms to Dr. Frias to fill out. Family is moving patient to [place]. Family asked not to mention this to daughter Hammad they haven't informed her of the move. documented in this encounterMercy Health03-28-2023 Miscellaneous Notes* Telephone Encounter - Kaye Leon RN - 08/01/2022 5:38 PM EDT Cory HORTON calling for Dr. José Miguel Frias. Cory has concerns about possible medication side effects including hallucinations. Conferenced Cory Pereyra for affiliate line paging. [phone] option #1 documented in this encounterMercy Health03-28-2023 Miscellaneous Notes* Telephone Encounter - Mikal Elliott Ma - 08/01/2022 4:33 PM EDT See phone note dated 07/13/2031. Closing this encounter. * Telephone Encounter - Sarina Gutierrez LPN - 08/01/2022 4:03 PM EDT Lucinda nurse with [facility] returns call for results from tb lab and Covid test. Cory reportsajaymeone called them earlier today asking for results from 's office. Do not see TE for this. Cory reports tb lab is still in process at [facility]. Cory was advised it could be a couple ofdays. Cory reports Covid PCR was not done so he did a Covid rapid test and it was neg. Sarina Gutierrez LPN documented in this encounterMercy Health03-27-2023 Miscellaneous Notes* Telephone Encounter - Breanne Boggs [...] daily. Breanne Boggs RN documented in this encounterMercy Health03-22-2023 History of Present illness Narrative* José Miguel Frias MD - 07/26/2022 1:10 PM EDT This note was created using Ateoriter. Subjective Patient presents with: 6 week follow-up [...] knee replacement CHOLECYSTECTOMY sometime in the late s COLONOSCOPY FLX DX W/COLLJ SPEC WHEN PFRMD [...] José Miguel Frias MD documented in this encounterMercy Health03-03-2023 History of Present illness Narrative* Elsy Bedolla (Solution Mixer) - 07/07/2022 8:07 AM EST Christy Fofana is identified through a medication adherence outreach initiative based on pharmacy claims data from [employer] (insurer) for MACIEJ medication(s) and Statin medication(s). [...] facility per call to pharmacy Elsy Bedolla (Solution Mixer) documented in this encounterMercy Health02-27-2023 Miscellaneous Notes* Telephone Encounter - Elsy Rosales RN - 07/03/2022 11:39 AM EST Pt and daughter were I to see provider on 07/01/22. She was asking when provider changed patch does back to the 4.6 mg. I let her know that was on 06/28/22. She said she is going to have to go talk with the custodial to see if she was ever given [...] try again. Spoke to Maria Luisa/Nurse @ [facility], given below dosage change. She does not [...] not let her out. Pt is in [facility]. Pt was sure that her was [...] advise. Sarina Gutierrez LPN documented in this encounterMercy Health02-25-2023 History of Present illness Narrative* José Miguel Frias MD - 07/01/2022 11:06 AM EST This note was created using NoteWriter. Subjective Christy Fofana is a 87 year old female was here with her daughter. Concern was sinus congestion, and chest congestion for several days. She was supposedly tested at the [facility] for Covid and was negative. She seemed to be dyspneic at times. No fever was noted. There was a message that she had increased confusion, and this was attributed to the increased doseof rivastigmine. Daughter found out that she may not have been receiving the patch, and that the higher dose may not have been initiated yet. Daughter had to cigar packer and picker the ear drops from Dr. Mims as [facility] did not fill the prescription. Patienthad a [...] José Miguel Frias MD documented in this encounterMercy Health02-08-2023 History of Present illness Narrative* José Miguel Frias MD - 06/14/2022 1:19 PM EST This note was created using NoteWriter. Subjective Patient presents with: Establish Care: From Dr. Morales Rob Christy Fofana was here with her daughter. She just lost her and was feeling somewhat down.She was admitted at [facility] in [place] last month for acute mental status change, confusion, paranoid delusion. She was diagnosed with dementia, and started on rivastigmine patch and quetiapine.She was discharged to [facility], but attending/PCP had not adjusted the [...] knee replacement CHOLECYSTECTOMY sometime in the late COLONOSCOPY FLX DX W/COLLJ SPEC WHEN PFRMD [...] José Miguel Frias MD documented in this encounterMercy Health04-19-2022 Miscellaneous Notes* Telephone Encounter - Christy Yin [...] possible. Farhana Payne Pss documented in this encounterMercy Health07-01-2019 History of Past illness Narrative* Problem Noted [...] of this encounter (statuses as of 06/14/2022) [facility] Narrative* Problem Noted [...] of this encounter (statuses as of 07/02/2022) [facility] Narrative* Problem Noted [...] of this encounter (statuses as of 07/03/2022) [facility] Narrative* Problem Noted [...] of this encounter (statuses as of 07/07/2022) [facility] Narrative* Problem Noted [...] of this encounter (statuses as of 07/26/2022) [facility] Narrative* Problem Noted [...] of this encounter (statuses as of 07/31/2022) [facility] Narrative* Problem Noted [...] of this encounter (statuses as of 08/01/2022) [facility] Narrative* Problem Noted [...] of this encounter (statuses as of 08/02/2022) [facility] Narrative* Problem Noted [...] of this encounter (statuses as of 08/02/2022) [facility] Narrative* Problem Noted [...] of this encounter (statuses as of 08/03/2022) [facility] Narrative* Problem Noted [...] of this encounter (statuses as of 08/03/2022) [facility] Narrative* Problem Noted [...] of this encounter (statuses as of 08/15/2022) [facility] Narrative* Problem Noted [...] of this encounter (statuses as of 09/05/2022) [facility] Narrative* Problem Noted [...] of this encounter (statuses as of 09/16/2022) [facility] Narrative* Problem Noted [...] of this encounter (statuses as of 10/05/2022) [facility] N[facility]ative* Problem Noted [...] of this encounter (statuses as of 11/01/2022) [facility] Narrative* Problem Noted [...] of this encounter (statuses as of 11/01/2022) [facility] Narrative* Problem Noted [...] of this encounter (statuses as of 11/07/2022) [facility] Narrative* Problem Noted [...] of this encounter (statuses as of 11/22/2022) [facility] Narrative* Problem Noted [...] of this encounter (statuses as of 11/30/2022) [facility] Narrative* Problem Noted [...] of this encounter (statuses as of 12/25/2022) [facility] Narrative* Problem Noted [...] of this encounter (statuses as of 12/27/2022) [facility] Narrative* Problem Noted [...] of this encounter (statuses as of 02/27/2023) [facility]ative* Problem Noted [...] of this encounter (statuses as of 03/06/2023) [facility]ative* Problem Noted [...] of this encounter (statuses as of 03/10/2023) [facility] Narrative* Problem Noted [...] of this encounter (statuses as of 03/13/2023) [facility] Narrative* Problem Noted [...] of this encounter (statuses as of 03/14/2023) [facility] Narrative* Problem Noted [...] of this encounter (statuses as of 03/20/2023) [facility] Narrative* Problem Noted [...] with inflammation 08/10/2008 09/01/2014 Dysmetabolic syndrome X 09/18/2006/12/2022 Disorders of bursae and tend ons in shoulder region, unspecified 09/18/2006 09/01/2014 SOLAR LENTIGINES 02/12/2006 02/12/2013 ESPARZA ANGIOMA 02/12/2006 02/12/2013 IRRITATED//INFLAMED SEBORRHEIC KERATOSES 03/17/2005 09/01/2014 Viral warts, unspecified 03/17/200501/2013 Other seborrheic keratosis 03/17/2005 1 ACTINIC DAMAGE///CHR SOLAR SKIN DAMAGE NOS 03/17/2005 02/12/2013 documented as of this encounter (statuses as of 03/22/2023) [facility] N[facility]ative* Problem Noted [...] of this encounter (statuses as of 03/22/2023) [facility]* Problem Noted [...] of this encounter (statuses as of 03/23/2023) [facility]* Problem Noted [...] of this encounter (statuses as of 03/27/2023) [facility]* Problem Noted [...] of this encounter (statuses as of 04/11/2023) [facility]* Problem Noted [...] of this encounter (statuses as of 04/13/2023) [facility] Narrative* Problem Noted [...] of this encounter (statuses as of 07/25/2021) [facility] Narrative* Problem Noted [...] of this encounter (statuses as of 08/12/2021) [facility] Narrative* Problem Noted [...] of this encounter (statuses as of 08/18/2021) [facility] Narrative* Problem Noted [...] of this encounter (statuses as of 08/24/2021) [facility]* Diagnosis Medication management Encounter for long-term (current) use of other medications documented in this encounter [facility] noteNo assessment information availableWProtestant Hospital Work Phone: Evaluation note* Diagnosis Dementia with behavioral disturbance- Primary Dementia, unspecified, with behavioral disturbance Major depressive disorder with current active episode, unspecified depression episode severity, unspecified whether recurrent Primary hypertension Unspecified essential hypertension Hypothyroidism, acquired Unspecified hypothyroidism Hyperlipidemia LDL goal <130 Other and unspecified hyperlipidemia Impacted cerumen of both ears Impacted cerumen documented in this encounter [facility]* Diagnosis Sinusitis, unspecified chronicity, unspecified location- Primary Dementia with behavioral disturbance (HCC) Dementia, unspecified, with behavioral disturbance Major depressive disorder with current active episode, unspecified depression episode severity, unspecified whether recurrent documented in this encounter [facility]* Diagnosis Dementia with behavioral disturbance (HCC)- Primary Dementia, unspecified, with behavioral disturbance Major depressive disorder with current active episode, unspecified depression episode severity, unspecified whether recurrent Venous (peripheral) insufficiency Unspecified venous (peripheral) insufficiency Primary hypertension Unspecified essential hypertension documented in this encounter [facility]* Diagnosis Dementia with behavioral disturbance (HCC)- Primary Dementia, unspecified, with behavioral disturbance Major depressive disorder with current active episode, unspecified depression episode severity, unspecified whether recurrent Seborrheic dermatitis of scalp Other seborrheic dermatitis Hypothyroidism, acquired Unspecified hypothyroidism Hyperlipidemia LDL goal <130 Other and unspecified hyperlipidemia [facility] Diagnosis Acute erythematous eruption of skin- Primary Venous insufficiency Unspecified venous (peripheral) insufficiency Bilateral lower extremity edema Edema documented in this encounter [facility]* Diagnosis Acute erythematous eruption of skin- Primary Bilateral lower extremity edema Edema Venous insufficiency Unspecified venous (peripheral) insufficiency Primary hypertension Unspecified essential hypertension DDD (degenerative disc disease), lumbar Degeneration of lumbar or lumbosacral intervertebral disc [facility] Diagnosis Avulsion of toenail, initial encounter- Primary Injury of right great toe, initial encounter Cellulitis of great toe of right foot Cellulitis and abscess of toe, unspecified [facility]* Diagnosis Major depressive disorder with current active episode, unspecified depression episode severity, unspecified whether recurrent- Primary Dementia with behavioral disturbance (HCC) Dementia, unspecified, with behavioral disturbance [facility] Diagnosis Traumatic avulsion of nail plate of toe, initial encounter- Primary Onychomycosis Dermatophytosis of nail Venous insufficiency Unspecified venous (peripheral) insufficiency Callus Corns and callosities [facility]* Diagnosis Dyspnea, unspecified type- Primary Venous (peripheral) insufficiency Unspecified venous (peripheral) insufficiency Stasis dermatitis of both legs Varicose veins of lower extremities with inflammation Dementia with behavioral disturbance (HCC) Dementia, unspecified, with behavioral disturbance History of panic attacks [facility] Diagnosis Onset Date Resolution Status Declining functional status acute Dehydration acute Multiple falls acute [facility] Work Phone: Evaluation note* Diagnosis Cellulitis of lower extremity, unspecified laterality Bilateral lower extremity edema Edema [facility] Diagnosis Major depressive disorder with current active episode, unspecified depression episode severity, unspecified whether recurrent Dementia with behavioral disturbance (HCC) Dementia, unspecified, with behavioral disturbance [facility] Diagnosis Injury of right great toe, initial encounter documented in this encounter [facility] [place] note* Diagnosis DDD (degenerative disc disease), lumbar Degeneration of lumbar or lumbosacral intervertebral disc Hyperlipidemia LDL goal <130 Other and unspecified hyperlipidemia Venous (peripheral) insufficiency Unspecified venous (peripheral) insufficiency documented in this encounter [facility] [place] note* Diagnosis Dementia with behavioral disturbance (HCC) Dementia, unspecified, with behavioral disturbance [facility] Diagnostic Procedure Only (Routine) - Closed Specialty Diagnoses / Procedures Referred By Gerda noyola Referred To Contact XR IMAGING Diagnoses Injury of right great toe, initial encounter Procedures XR FOOT GENERAL 3V AP/LAT/OBL RIGHT RADEX FOOT COMPLETE MINIMUM 3 VIEWS Nedra Cheema APRN.[employer] TECHNICIAN [address] [place] [address] Xr Imaging Referral ID Status Reason Start Date Expiration Date V isits Requested Visits Authorized [id number] Closed Auto-Generate d Referral 10/31/2022 11/30/2023 1 1 * Consult, Test, Treat (Routine) - Pending Review Specialty Diagnoses / Procedures Referred By Gerda noyola Referred To Contact Podiatry Diagnoses Injury of right great toe, initial encounter Cellulitis of great toe of right foot Avulsion of toenail, initial encounter Procedures CONSULT TO PODIATRY OFFICE/OUTPATIENT [facility] 60-74 MINUTES Nedra Cheema APRN.[employer] TECHNICIAN [address] [place] [address] Referral ID Status Reason Start Date Expiration Date Visits Requested Visits Authorized [id number] Pending Review PCP Requested Referral 10/31/2022 10/31/2023 1 1 [facility] for referral (narrative)* Diagnostic Procedure Only (Routine) - Closed Specialty Diagnoses / Procedures Referred By Contac t Referred To Contact XR IMAGING Diagnoses Injury of right great toe, initial encounter Procedures XR FOOT GENERAL 3V AP/LAT/OBL RIGHT RADEX FOOT COMPLETE MINIMUM 3 VIEWS Nedra Cheema APRN.[employer] TECHNICIAN [address] [place] [address] [place] [address] Referral ID Status Reason Start Date Expiration Date V isits Requested Visits Authorized [id number] Closed Auto-Generate d Referral 10/31/2022 11/30/2023 1 1 [facility] for [facility]: Reason for visit Narrative* Diagnostic Procedure Only (Routine) - Closed Specialty Diagnoses / Procedures Referred By Contac t Referred To Contact XR IMAGING Diagnoses Injury of right great toe, initial encounter Procedures XR FOOT GENERAL 3V AP/LAT/OBL RIGHT RADEX FOOT COMPLETE MINIMUM 3 VIEWS Nedra Cheema, CUATE.[employer] TECHNICIAN [address] [place] [address] [place] [address] Referral ID Status Reason Start Date Expiration Date V isits Requested Visits Authorized [id number] Closed Auto-Generate d Referral 10/31/2022 11/30/2023 1 1 [facility] Advance Directives No Advanced Directives Records FoundDocuments on File Type Date Recorded 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 March 26, 2022 8:59am Advance Directive Response Recorded Date/ Time Name of Medical Power of Data Analytics Analyst ? March 26, 2022 8:59am Living Will No April 08 6:52pm Power of Data Analytics Analyst No April 08, 2022 6:52pm Advance Directive Response Recorded Date/ Time Living Will No April 08 7:52pm Power of Data Analytics Analyst No April 08, 2022 7:52pm Documents on File Type Date Recorded Patient Radiographer Cardiac Catheterization Expl anation Advance Directive(s) 08/07/2022 9:32 AM Documents on File Type Date Recorded Patient Radiographer Cardiac Catheterization Expl anation Advance Directive(s) 08/07/2022 9:32 AM Advance Directive Response Recorded Date/ Time Name of Medical Power of Data Analytics Analyst SANDY VALDEZ LELANDKhalif February 23, 2023 10:50pm Living Will No February 23 10:50pm Power of Data Analytics Analyst Yes February 23, 2023 10:50pm Chief Complaint and Reason for Visit Chief Complaint urinary sx Chief Complaint urinary sx WOUND CHECK Chief Complaint urinary sx WOUND CHECK anxiety DETENTION LAB WORK Chief Complaint WOUND CHECK anxiety DETENTION LAB WORK DETENTION LABWORK Chief Complaint anxiety DETENTION LAB WORK DETENTION LABWORK DETENTION LABWORK Chief Complaint DETENTION LAB WOR K DETENTION LABWORK DETENTION LABWORK DETENTION LABWORK Chief Complaint DETENTION LABWORK DETENTION LABWORK DETENTION LABWORK DETENTION LAB WORK Chief Complaint RECURRENT FALL RECURRENT FALL RECURRENT FALL Reason for Visit Declining functional status Dehydration Multiple falls Chief Complaint Admit Date DETENTION LAB WORK August 21, 2024 5 :00am Chief Complaint Admit Date DETENTION LAB WORK August 21, 2024 5 :00am FALL October 06, 2024 4:47p m Chief Complaint Admit Date DETENTION LAB WORK August 21, 2024 5 :00am DETENTION LAB WORK September 30, 2024 9:0 0pm fallOctober 06, 2024 4:47p m Family History No Family History Records Found Relationship Condition Age at Onset Recorded Date/T asaf father Coronary artery disease Unknown Implantable cardiove rter-defibrillator (ICD) in situ Unknown brother Presence of cardiac pacemaker Unknown brother Coronary artery disease Unknown Myocardial infarction Unknown Reason for Referral Specialty Diagnoses / Procedures Referred By Gerda noyola Referred To Contact Ent - Otolaryngology Diagnoses Impacted cerumen of both ears Procedures CONSULT TO ENT José Miguel Frias MD [address] [place] [id number] Referral ID Status Reason Start Date Expiration Date Visits Requested Visits Authorized [id number] Ref Not Required PCP Requested Referral 06/14/2022 06/14/2023 1 1 Specialty Diagnoses / Procedures Referred By Gerda noyola Referred To Contact Neurology Diagnoses Dementia with behavioral disturbance Procedures CONSULT TO NEUROLOGY OFFICE/OUTPATIENT [facility] 60-74 MINUTES José Miguel Frias MD [address] [place] [address] Referral ID Status Reason Start Date Expiration Date Visits Requested Visits Authorized [id number] Pending Review PCP Requested Referral 06/14/2022 06/14/2023 1 1 Specialty Diagnoses / Procedures Referred By Contac t Referred To Contact Cardiology Diagnoses Dyspnea, unspecified type Procedures CONSULT TO CARDIOLOGY José Miguel Frias MD [address] [place] [address] Referral ID Status Reason Start Date Expiration Date Visits Requested Visits Authorized [id number] Ref Not Required PCP Requested Referral 12/22/2022 12/22/2023 1 1 Specialty Diagnoses / Procedures Referred By Contac t Referred [facility] Diagnoses Dyspnea, unspecified type Procedures ECG COMPLETE ECG ROUTINE ECG W/LEAST 12 LDS W/I&R José Miguel Frias MD [address] [place] [address] [facility] [place] [place] [address] [place] [address] Referral ID Status Reason Start Date Expiration Date V isits Requested Visits Authorized [id number] Closed Auto-Generate d Referral 12/22/2022 12/22/2023 1 1 Summary Purpose Additional Source Comments Source Comments (unrecognize d section and content) In the event this informatio n is protected by the Federal Confidentiality of Alcohol and Drug Abuse Patient Records regulations: The Federal rules restrict any use of the information to criminally investigate or prosecute any alcohol or drug abuse patient.[facility] the event this information is protected by the Federal Confidentiality of Alcohol and Drug Abuse Patient Records regulations: The Federal rules restrict any use of the information to criminally investigate or prosecute any alcohol or drug abuse patient.[facility] HealthIn the event this information is protected by the Federal Confidentiality of Alcohol and Drug Abuse Patient Records regulations: The Federal rules restrict any use of the information to criminally investigate or prosecute any alcohol or drug abuse patient.[facility] HealthIn the event this information is protected by the Federal Confidentiality of Alcohol and Drug Abuse Patient Records regulations: The Federal rules restrict any use of the information to criminally investigate or prosecute any alcohol or drug abuse patient.[facility] HealthIn the event this information is protected by the Federal Confidentiality of Alcohol and Drug Abuse Patient Records regulations: The Federal rules restrict any use of the information to criminally investigate or prosecute any alcohol or drug abuse patient.[facility] HealthIn the event this information is protected by the Federal Confidentiality of Alcohol and Drug Abuse Patient Records regulations: The Federal rules restrict any use of the information to criminally investigate or prosecute any alcohol or drug abuse patient.[facility] HealthIn the event this information is protected by the Federal Confidentiality of Alcohol and Drug Abuse Patient Records regulations: The Federal rules restrict any use of the information to criminally investigate or prosecute any alcohol or drug abuse patient.[facility] HealthIn the event this information is protected by the Federal Confidentiality of Alcohol and Drug Abuse Patient Records regulations: The Federal rules restrict any use of the information to criminally investigate or prosecute any alcohol or drug abuse patient.[facility] HealthIn the event this information is protected by the Federal Confidentiality of Alcohol and Drug Abuse Patient Records regulations: The Federal rules restrict any use of the information to criminally investigate or prosecute any alcohol or drug abuse patient.[facility] HealthIn the event this information is protected by the Federal Confidentiality of Alcohol and Drug Abuse Patient Records regulations: The Federal rules restrict any use of the information to criminally investigate or prosecute any alcohol or drug abuse patient.[facility] HealthIn the event this information is protected by the Federal Confidentiality of Alcohol and Drug Abuse Patient Records regulations: The Federal rules restrict any use of the information to criminally investigate or prosecute any alcohol or drug abuse patient.[facility] HealthIn the event this information is protected by the Federal Confidentiality of Alcohol and Drug Abuse Patient Records regulations: The Federal rules restrict any use of the information to criminally investigate or prosecute any alcohol or drug abuse patient.[facility] HealthIn the event this information is protected by the Federal Confidentiality of Alcohol and Drug Abuse Patient Records regulations: The Federal rules restrict any use of the information to criminally investigate or prosecute any alcohol or drug abuse patient.[facility] HealthIn the event this information is protected by the Federal Confidentiality of Alcohol and Drug Abuse Patient Records regulations: The Federal rules restrict any use of the information to criminally investigate or prosecute any alcohol or drug abuse patient.[facility] HealthIn the event this information is protected by the Federal Confidentiality of Alcohol and Drug Abuse Patient Records regulations: The Federal rules restrict any use of the information to criminally investigate or prosecute any alcohol or drug abuse patient.[facility] HealthIn the event this information is protected by the Federal Confidentiality of Alcohol and Drug Abuse Patient Records regulations: The Federal rules restrict any use of the information to criminally investigate or prosecute any alcohol or drug abuse patient.[facility] HealthIn the event this information is protected by the Federal Confidentiality of Alcohol and Drug Abuse Patient Records regulations: The Federal rules restrict any use of the information to criminally investigate or prosecute any alcohol or drug abuse patient.[facility] HealthIn the event this information is protected by the Federal Confidentiality of Alcohol and Drug Abuse Patient Records regulations: The Federal rules restrict any use of the information to criminally investigate or prosecute any alcohol or drug abuse patient.[facility] HealthIn the event this information is protected by the Federal Confidentiality of Alcohol and Drug Abuse Patient Records regulations: The Federal rules restrict any use of the information to criminally investigate or prosecute any alcohol or drug abuse patient.[facility] HealthIn the event this information is protected by the Federal Confidentiality of Alcohol and Drug Abuse Patient Records regulations: The Federal rules restrict any use of the information to criminally investigate or prosecute any alcohol or drug abuse patient.[facility] HealthIn the event this information is protected by the Federal Confidentiality of Alcohol and Drug Abuse Patient Records regulations: The Federal rules restrict any use of the information to criminally investigate or prosecute any alcohol or drug abuse patient.[facility] HealthIn the event this information is protected by the Federal Confidentiality of Alcohol and Drug Abuse Patient Records regulations: The Federal rules restrict any use of the information to criminally investigate or prosecute any alcohol or drug abuse patient.[facility] HealthIn the event this information is protected by the Federal Confidentiality of Alcohol and Drug Abuse Patient Records regulations: The Federal rules restrict any use of the information to criminally investigate or prosecute any alcohol or drug abuse patient.[facility] HealthIn the event this information is protected by the Federal Confidentiality of Alcohol and Drug Abuse Patient Records regulations: The Federal rules restrict any use of the information to criminally investigate or prosecute any alcohol or drug abuse patient.[facility] HealthIn the event this information is protected by the Federal Confidentiality of Alcohol and Drug Abuse Patient Records regulations: The Federal rules restrict any use of the information to criminally investigate or prosecute any alcohol or drug abuse patient.[facility] HealthIn the event this information is protected by the Federal Confidentiality of Alcohol and Drug Abuse Patient Records regulations: The Federal rules restrict any use of the information to criminally investigate or prosecute any alcohol or drug abuse patient.[facility] HealthIn the event this information is protected by the Federal Confidentiality of Alcohol and Drug Abuse Patient Records regulations: The Federal rules restrict any use of the information to criminally investigate or prosecute any alcohol or drug abuse patient.[facility] HealthIn the event this information is protected by the Federal Confidentiality of Alcohol and Drug Abuse Patient Records regulations: The Federal rules restrict any use of the information to criminally investigate or prosecute any alcohol or drug abuse patient.[facility] HealthIn the event this information is protected by the Federal Confidentiality of Alcohol and Drug Abuse Patient Records regulations: The Federal rules restrict any use of the information to criminally investigate or prosecute any alcohol or drug abuse patient.[facility] HealthIn the event this information is protected by the Federal Confidentiality of Alcohol and Drug Abuse Patient Records regulations: The Federal rules restrict any use of the information to criminally investigate or prosecute any alcohol or drug abuse patient.[facility] HealthIn the event this information is protected by the Federal Confidentiality of Alcohol and Drug Abuse Patient Records regulations: The Federal rules restrict any use of the information to criminally investigate or prosecute any alcohol or drug abuse patient.[facility] HealthIn the event this information is protected by the Federal Confidentiality of Alcohol and Drug Abuse Patient Records regulations: The Federal rules restrict any use of the information to criminally investigate or prosecute any alcohol or drug abuse patient.[facility] HealthIn the event this information is protected by the Federal Confidentiality of Alcohol and Drug Abuse Patient Records regulations: The Federal rules restrict any use of the information to criminally investigate or prosecute any alcohol or drug abuse patient.[facility] HealthIn the event this information is protected by the Federal Confidentiality of Alcohol and Drug Abuse Patient Records regulations: The Federal rules restrict any use of the information to criminally investigate or prosecute any alcohol or drug abuse patient.[facility] HealthIn the event this information is protected by the Federal Confidentiality of Alcohol and Drug Abuse Patient Records regulations: The Federal rules restrict any use of the information to criminally investigate or prosecute any alcohol or drug abuse patient.[facility] HealthIn the event this information is protected by the Federal Confidentiality of Alcohol and Drug Abuse Patient Records regulations: The Federal rules restrict any use of the information to criminally investigate or prosecute any alcohol or drug abuse patient.[facility] HealthIn the event this information is protected by the Federal Confidentiality of Alcohol and Drug Abuse Patient Records regulations: The Federal rules restrict any use of the information to criminally investigate or prosecute any alcohol or drug abuse patient.[facility] HealthIn the event this information is protected by the Federal Confidentiality of Alcohol and Drug Abuse Patient Records regulations: The Federal rules restrict any use of the information to criminally investigate or prosecute any alcohol or drug abuse patient.[facility] HealthIn the event this information is protected by the Federal Confidentiality of Alcohol and Drug Abuse Patient Records regulations: The Federal rules restrict any use of the information to criminally investigate or prosecute any alcohol or drug abuse patient.[facility] HealthIn the event this information is protected by the Federal Confidentiality of Alcohol and Drug Abuse Patient Records regulations: The Federal rules restrict any use of the information to criminally investigate or prosecute any alcohol or drug abuse patient.[facility] HealthIn the event this information is protected by the Federal Confidentiality of Alcohol and Drug Abuse Patient Records regulations: The Federal rules restrict any use of the information to criminally investigate or prosecute any alcohol or drug abuse patient.[facility] HealthIn the event this information is protected by the Federal Confidentiality of Alcohol and Drug Abuse Patient Records regulations: The Federal rules restrict any use of the information to criminally investigate or prosecute any alcohol or drug abuse patient.[facility] HealthIn the event this information is protected by the Federal Confidentiality of Alcohol and Drug Abuse Patient Records regulations: The Federal rules restrict any use of the information to criminally investigate or prosecute any alcohol or drug abuse patient.[facility] HealthIn the event this information is protected by the Federal Confidentiality of Alcohol and Drug Abuse Patient Records regulations: The Federal rules restrict any use of the information to criminally investigate or prosecute any alcohol or drug abuse patient.[facility] HealthIn the event this information is protected by the Federal Confidentiality of Alcohol and Drug Abuse Patient Records regulations: The Federal rules restrict any use of the information to criminally investigate or prosecute any alcohol or drug abuse patient.[facility] Reason for Visit (unrecogniz ed section and content) Reason Comments Refill Request Reason Comments Prescription Refills Reason Comments Establish Care From Dr. Morales Rob Reason Comments Established Patient X 2 days chest conge stion and cough Reason Comments behavioral change Reason Onset Date Comments Allied Health Visit 07/07/2022 Medication A dherence Outreach Reason Comments 6 week follow-up Forms/letter [facility] [place] Reason Onset Date Comments Refill Request 07/31/2022 Reason Comments Results Reason Comments Patient Update Conferenced facility [employer] to affiliate line Reason Comments Patient Update Reason Comments Confusion Reason Comments Rash Reason Comments Medication Question Reason Comments blisters nad redneess going up rk lower legs Reason Comments Follow Up 1 WEEK Reason Onset Date Comments Population Health Navigation Outreach 10/05/2022 Cut Off care gap Reason Comments Toe Pain (Big) red and inflammed Reason Comments New nail care Nail Check Reason Onset Date Comments Refill Request 11/29/2022 Reason Comments Recheck Reason Comments [facility] Plan Reason Comments [facility] PT POC Reason Comments Edema Reason Comments Medication Problem Reason Comments Release Of Medical Records Reason Comments medication allergy Reason Comments report on patient legs Reason Onset Date Comments Refill Request 03/23/2023 Reason Comments [facility] Update Reason Comments Orders Reason Onset Date Comments Refill Request 04/12/2023 Reason Onset Date Comments Population Health Navigation Outreach 08/30/2023 Cut Off [facility] [place] CURRENT ROSTER workbench - AWV, Care gaps, HCC gap closure - [place] [facility] Reason Onset Date Comments Population Health Navigation Outreach 10/09/2023 [facility] CURRENT ROSTER workbench - AWV, Care gaps, HCC gap closure - [place] [facility] Reason Onset Date Comments Population Health Navigation Outreach 12/14/2023 Leo Workbench - [place] [facility] Reason Comments Patient Outreach Reason Comments request medicaiton not on current [place] [facility] Care Teams (unrecognized sec tion and content) Team [...] October 06, 2024 End: October 06, 2024 Broadcast Director Operations Relationship Specialty Start Date End Date José Miguel Frias MD [address], [place] [address] PCP - General Internal Medicine 05/25/21 Broadcast Director Operations Relationship Specialty Start Date End Date José Miguel Frias MD [address] [place], [place] [address] PCP - General Internal Medicine 05/25/21 Team Status: Active Member Role Status Dates Dr. Bejnamín Merino III, MD Family Provider Active Dr. [...] Active Mary Rob MD Attending Provider Active Broadcast Director Operations Relationship Specialty Start Date End Date José Miguel Frias MD [address] [facility] [place] [address] PCP - General Internal Medicine 06/14/22 Broadcast Director Operations Relationship Specialty Start Date End Date José Miguel Frias MD [address] [facility] [place] [address] PCP - General Internal Medicine 06/14/22 Broadcast Director Operations Relationship Specialty Start Date End Date José Miguel Frias MD [address] [facility] [place] [address] PCP - General Internal Medicine 06/14/22 Broadcast Director Operations Relationship Specialty Start Date End Date José Miguel Frias MD [address] [facility] [place] [address] PCP - General Internal Medicine 06/14/22 Broadcast Director Operations Relationship Specialty Start Date End Date José Miguel Frias MD [address] [facility] [place] [address] PCP - General Internal Medicine 06/14/22 Team [...] José Miguel VELASQUEZ MD Attending Provider Active Broadcast Director Operations Relationship Specialty Start Date End Date José Miguel Frias MD [address] [facility] [place] [address] PCP - General Internal Medicine 06/14/22 Broadcast Director Operations Relationship Specialty Start Date End Date José Miguel Frias MD [address] [facility] [place] [address] PCP - General Internal Medicine 06/14/22 Broadcast Director Operations Relationship Specialty Start Date End Date José Miguel Frias MD [address] [facility] [place] [address] PCP - General Internal Medicine 06/14/22 Broadcast Director Operations Relationship Specialty Start Date End Date José Miguel Frias MD [address] [facility] [place] [address] PCP - General Internal Medicine 06/14/22 Broadcast Director Operations Relationship Specialty Start Date End Date José Miguel Frias MD [address] [facility] [place] [address] PCP - General Internal Medicine 06/14/22 Broadcast Director Operations Relationship Specialty Start Date End Date José Miguel Frias MD [address] [facility] [place] [address] PCP - General Internal Medicine 06/14/22 Broadcast Director Operations Relationship Specialty Start Date End Date José Miguel Frias MD [address] [facility] [place] [address] PCP - General Internal Medicine 06/14/22 Broadcast Director Operations Relationship Specialty Start Date End Date José Miguel Frias MD [address] [facility] [place] [address] PCP - General Internal Medicine 06/14/22 Broadcast Director Operations Relationship Specialty Start Date End Date José Miguel Frias MD [address] [facility] [place] [address] PCP - General Internal Medicine 06/14/22 Broadcast Director Operations Relationship Specialty Start Date End Date José Miguel Frias MD [address] [facility] [place] [address] PCP - General Internal Medicine 06/14/22 Broadcast Director Operations Relationship Specialty Start Date End Date José Miguel Frias MD [address] [place] [place] [address] PCP - General Internal Medicine 06/14/22 Broadcast Director Operations Relationship Specialty Start Date End Date José Miguel Frias MD [address] [facility] [place] [address] PCP - General Internal Medicine 06/14/22 Broadcast Director Operations Relationship Specialty Start Date End Date José Miguel Frias MD [address] [place] [address] PCP - General Internal Medicine 06/14/22 Broadcast Director Operations Relationship Specialty Start Date End Date José Miguel Frias MD [address] [place] [address] PCP - General Internal Medicine 06/14/22 Team [...] Provider Active Dr. Will Bah DO Attending Provider Active Broadcast Director Operations Relationship Specialty Start Date End Date José Miguel Frias MD [address] [place] [address] PCP - General Internal Medicine 06/14/22 Broadcast Director Operations Relationship Specialty Start Date End Date José Miguel Frias MD [address] [facility] [place] [address] PCP - General Internal Medicine 06/14/22 Broadcast Director Operations Relationship Specialty Start Date End Date José Miguel Frias MD [address] [facility] [place] [address] PCP - General Internal Medicine 06/14/22 Broadcast Director Operations Relationship Specialty Start Date End Date José Miguel Frias MD [address] [facility] [place] [address] PCP - General Internal Medicine 06/14/22 Broadcast Director Operations Relationship Specialty Start Date End Date José Miguel Frias MD [address] [facility] [place] [address] PCP - General Internal Medicine 06/14/22 Broadcast Director Operations Relationship Specialty Start Date End Date José Miguel Frias MD [address] [facility] [place] [address] PCP - General Internal Medicine 06/14/22 Broadcast Director Operations Relationship Specialty Start Date End Date José Miguel Frias MD [address] [facility] [place] [address] PCP - General Internal Medicine 06/14/22 Broadcast Director Operations Relationship Specialty Start Date End Date José Miguel Frias MD [address] [facility] [place] [address] PCP - General Internal Medicine 06/14/22 Broadcast Director Operations Relationship Specialty Start Date End Date José Miguel Frias MD [address] [place] [address] PCP - General Internal Medicine 06/14/22 Broadcast Director Operations Relationship Specialty Start Date End Date José Miguel Frias MD [address] [place] [address] PCP - General Internal Medicine 06/14/22 Broadcast Director Operations Relationship Specialty Start Date End Date Emmanuel Park DO [address] [place] [address] PCP - General Family Medicine 12/19/23 Broadcast Director Operations Relationship Specialty Start Date End Date José Miguel Frias MD [address] [place], [place] [address] PCP - General Internal Medicine 06/14/22 12/18/23 Broadcast Director Operations Relationship Specialty Start Date End Date Emmanuel Park DO [address] [place] [address] PCP - General Family Medicine 12/19/23 Team [...] section and content) DATE CREATED AUTHOR 04/27/2024 [facility] DATE CREATED AUTHOR AUTHOR'S ORGANIZ ATION 12/12/2024 [facility] FOR RECORDS PERTAINING TO PATIENTS WHO ARE [...] BE BASED ON THE PRIMARY CLINICAL RECORDS. [employer] provides no warranty or guarantee of the accuracy or completeness of information in this document.
--- OUTSIDE RECORDS SUMMARY | 2024-12-12 11:19 | XMS RPT_ITS | CCD ---
Author Organization [facility] Care Team Providers Care Administration Clerk Name Role Phone Marina Blanc Kulwinder Unavailable Guanaco Marina Miramontes Unavailable José Miguel Frias MD Primary Care Provider Unavailable Primary Care Provider UnavailJosé Miguel Baeza MD Primary Care Provider Dr. José Miguel Frias Primary Care Provider Dr. De Quiroz Emergency Provider Dr. Jhonathan Londono Admit Provider Dr. Jhonathan Londono Attending Provider Dr. Jhonathan Londono Other Provider Dr. Will Bah Attending Provider [phone] Dr. Will Bah Other Provider José Miguel Frias MD Primary Care Provider Emmanuel Park DO Primary Care Provider José Miguel Frias MD Primary Care Provider [phone] JOSÉ MIGUEL FRIAS Primary Care Unavailable MCKENZIE [...] sources) atorvastatin Drug Allergy 2 Muscle aching [facility] Work Phone: [phone] (20 sources) Clindamycin; Translations: [CLINDAMYCIN] Drug Allergy 9 Diarrhea [facility] Work Phone: [phone] (2 sources) HYDROmorphone Drug Allergy 2 [facility] Work Phone: [phone] (20 sources) Morphine; Translations: [MORPHINE] Drug Allergy 5 Vomiting [facility] Work Phone: [phone] (2 sources) Penicillin Drug Allergy 2 [facility] Work Phone: [phone] (20 sources) Potassium; Translations: [POTASSIUM] Drug Allergy 8 Diarrhea [facility] Work Phone: [phone] (2 sources) Sulfonamides (Antibiotic) drug allergy 2 Rash [facility] Work Phone: [phone] (20 sources) Tetracycline; Translations: [TETRACYCLINE] Drug Allergy 5 Vomiting [facility] Work Phone: [phone] (2 sources) DILAUDEN drug allergy 2 Vomitting, dizziness [facility] Work Phone: (20 sources) Amoxicillin / Clavulanate; Translations: [AMOXICILLIN-POT CLAVULANATE] Drug Allergy 0 Diarrhea [facility] (20 sources) atorvastatin; Translations: [ATORVASTATIN CALCIUM] Drug Allergy 6 Diarrhea [facility] (20 sources) Doxycycline; Translations: [DOXYCYCLINE MONOHYDRATE] Drug Allergy 7 GI Upset [facility] (20 sources) HYDROmorphone; Translations: [HYDROMORPHONE (BULK)] Drug Allergy 6 [facility] Work Phone: (20 sources) Lisinopril; Translations: [LISINOPRIL] Drug Allergy 9 [facility] (5 sources) Penicillins; Translations: [PENICILLINS] Propensity to adverse reactions 5 [facility] Work Phone: (20 sources) Procaine; Translations: [PROCAINE] Drug Allergy 1 Mental Status Change [facility] Work Phone: Comment on above: starts crying and l aughing (20 sources) Sulfonamides (Antibiotic); Translations: [SULFA (SULFONAMIDE ANTIBIOTICS)] Propensity to adverse reactions 7 Hives [facility] Work Phone: (12 sources) HYDROmorphone; Translations: [hydromorphone HCl] Drug Allergy 2 Vomiting [facility] (11 sources) Penicillins [facility] (11 sources) Sulfonamides (Antibiotic) Allergy to substance 2 [facility] (20 sources) Penicillins Propensity to adverse reactions 5 [facility] Work Phone: (14 sources) Latex; Translations: [LATEX] Drug Allergy 3 Other: See Comments [facility] Work Phone: (1 source) atorvastatin Drug Allergy 5 [facility] Repository (1 source) Penicillins Drug allergy (disorder) 5 [facility] (1 source) Procaine Drug Allergy 5 [facility] (1 source) Sulfonamides (Antibiotic) Drug allergy (disorder) 5 [facility] Repository Medications Current Medications Medication Drug [...] as needed. Take 1 capsule by mo [facility] three times daily as needed [...] One tablet by mouth daily LEVOTHYROXINE SODIUM [id number] Gregoria Diaz Start: 05-23-2011 take 1 tablet by aubrey th once daily LEVOTHYROXINE SODIUM 88 MCG TABS One tablet by mouth daily LEVOTHYROXINE SODIUM [id number] Gutierrez Tolbert MD Comment on above: TAKE [...] 5-500 MG TABS as needed HYDROCODONE-ACETAMI NOPHEN [id number] Gutierrez Tolbert MD [id number] 200 actuat albuterol 0.09 mg/actuat metered dose [...] tablet by mouth twice daily CALCIUM CARBONATE [id number] Gutierrez Tolbert MD chlorthalidone 25 mg oral [...] One tablet by mouth daily CITALOPRAM HYDROBROMIDE [id number] Gutierrez Tolbert MD Start: 02-23-2012 End: 10-02-2013 take 1 tablet by mouth once daily CELEXA 20 MG TABS One tablet by mouth daily CITALOPRAM HYDROBROMIDE [id number] Gutierrez Tolbert MD doxycycline monohydrate 100 mg [...] by mouth daily OMEGA-3 FATTY ACIDS CAPS [id number] Gutierrez Tolbert MD Start: 05-23-2011 take 1 tablet by aubrey th once daily FISH OIL CAPS One tablet by mouth daily OMEGA-3 FATTY ACIDS CAPS [id number] Gregoria Diaz hydroCHLOROthiazide 25 mg oral tablet [...] 10:01pm Start: 05-23-2011 take 1 tablet by uabrey once daily HYDROCHLOROTHIAZIDE 25 MG TABS One tablet by mouth daily HYDROCHLOROTHIAZIDE [id number] Gutierrez Tolbert MD Comment on above: Take 1 capsule by mo [facility] once daily. Take 1 tablet [...] on above: Take 1 capsule by mo [facility] four times daily as needed. [...] One tablet by mouth daily LOSARTAN POTASSIUM [id number] Gutierrez Tolbert MD Comment on above: take [...] 12.5 MG TABS as needed MECLIZINE HCL [id number] Gutierrez Tolbert MD Start: 11-18-2013 End: 02-23-2023 take 1 tablet by mouth once daily as needed Meclizine 12.5 MG tablet Discontinued 12.5 mg PO DAILY NEEDED as needed for Vertigo November 18, 2013 12:00am February 23, 2023 10:01pm Comment on above: Take 1 tablet by [facility] every 6 hours as needed (dizziness). mometasone [...] One tablet by mouth daily MULTIPLE VITAMIN [id number] Gregoria Diaz mupirocin 0.02 mg/mg topical ointment [...] Comment on above: Take 1 tablet by [facility] twice daily as needed for Pain. Take with food. potassium chloride 8 meq extended release oral capsule (1 source) Start: 03-16-20 End: 03-20-20 23 take 1 capsule by mouth once daily potassium chloride SR (MICRO-K) 8 mEq cpER Take 1 capsule by mouth once daily. 30 capsule 0 03/16/2023 03/20/2023 Discontinued Comment on above: Take 1 capsule by mo [facility] once daily. sertraline 50 mg [...] 0.1 % CREA as directed TRIAMCINOLONE ACETONIDE [id number] Gutierrez Tolbert MD Start: 02-22-2017 TRIAMCINOLONE ACETONIDE 0.1 % PSTE as directed TRIAMCINOLONE ACETONIDE [id number] Gutierrez Tolbert MD Comment on above: Apply [...] TABS One tablet by mouth daily VALSARTAN [id number] Karime Franks RN Problems Active Problems Problem [...] (1 source) Patient encounter status; Translations: [Other fci (current) drug therapy] Episodic Other connective tissue [...] 10-10-2024 Anion gap [Moles/Vol] 10 mmol/L 5-15 [facility] BUN/creatinine ratioOrdered By: Emmanuel Park on 10-10-2024 Urea nitrogen/Creatinine [Mass ratio] 38.1 mg/mg High 10-20 [facility] Bilirubin, totalOrdered By: Emmanuel Park on 10-10-2024 Bilirubin [Mass/Vol] 0.55 mg/dL 0.00-1.30 [facility] Carbon dioxide, total [Moles /volume] in Central venous bloodOrdered By: Emmanuel Park on 10-10-2024 CO2 [Moles/Vol] 26.1 mmol/L 21.0-32.0 [facility] Chloride assayOrdered By: Costa Park on 10-10-2024 Chloride [Moles/Vol] 103 mmol/L 98-108 [facility] Glomerular filtration rate ( GFR) estimation/1.73 sq m using serum, plasma, or whole bOrdered By: Emmanuel Park on 10-10-2024 GFR/1.73 sq M.predicted among non-blacks MDRD (S/P/Bld) [Vol rate/Area] 56 mL/min/{1.73_m2} Low >60 [facility] Comment on above: mL/min/1.73m2 CKD-EP I Creatinine Equation (2020) Hemoglobin A1c percentageOrd ered By: Emmanuel Park on 10-10-2024 HbA1c (Bld) [Mass fraction] 5.6 % <5.7 [facility] Comment on above: Normal < 5.7 % Predi abetic 5.7 - 6.4 % Diabetic >or= 6.5 % Please note range changes. Laboratory - Chemistry and C hemistry - challengeOrdered By: Emmanuel Park on 10-10-2024 AST [Catalytic activity/Vol] 18 U/L <32 [facility] Potassium measurement (mass/ volume)Ordered By: Emmanuel Park on 10-10-2024 Potassium (Unsp spec) [Mass/Vol] 4.9 mmol/L 3.3-5.1 [facility] Serum creatinine measurement (mass/volume)Ordered By: Emmanuel Park on 10-10-2024 Creatinine [Mass/Vol] 0.97 mg/dL 0.70-1.20 [facility] Serum globulin measurementOr dered By: Emmanuel Park on 10-10-2024 Globulin (S) [Mass/Vol] 2.6 g/dL 2.2-4.2 [facility] Serum glucose measurement (m ass/volume)Ordered By: Emmanuel Park on 10-10-2024 Glucose [Mass/Vol] 85 mg/dL 70-99 [facility] Serum or plasma alanine johnson otransferase (ALT) measurementOrdered By: Emmanuel Park on 10-10-2024 ALT [Catalytic activity/Vol] 11 U/L <35 [facility] Serum or plasma albumin jalil urement (mass/volume)Ordered By: Emmanuel Park on 10-10-2024 Albumin [Mass/Vol] 4.0 g/dL 3.4-4.8 [facility] Serum or plasma albumin/glob ulin mass ratioOrdered By: Emmanuel Park on 10-10-2024 Albumin/Globulin [Mass ratio] 1.5 {ratio} 0.9-2.4 [facility] Serum or plasma alkaline jama sphatase measurementOrdered By: Emmanuel Park on 10-10-2024 ALP [Catalytic activity/Vol] 84 U/L 35-104 [facility] Serum or plasma calcium jalil urement (mass/volume)Ordered By: Emmanuel Park on 10-10-2024 Calcium [Mass/Vol] 9.4 mg/dL 7.6-11.0 [facility] Serum or plasma urea nitroge n measurement (mass/volume)Ordered By: Emmanuel Park on 10-10-2024 Urea nitrogen [Mass/Vol] 37 mg/dL High 4-19 [facility] Sodium levelOrdered By: Harlan Park on 10-10-2024 Sodium [Moles/Vol] 139 mmol/L 133-145 [facility] TSH DL <= 0.005 mIU/L QnOrde red By: Emmanuel Park on 10-10-2024 TSH Qn 1.110 uIU/mL 0.300-4.20 0 [facility] ThyroxineOrdered By: Emmanuel camacho on 10-10-2024 T4 [Mass/Vol] 6.1 ug/dL 4.8-13.9 [facility] Total proteinOrdered By: Mami Park on 10-10-2024 Protein [Mass/Vol] 6.6 g/dL 5.9-8.4 [facility] Brain/Head without Contrasto n 10-06-2024 Brain/Head without Contrast [facility] Imaging Services [address] [place] [address] Brain/Head without Contrast MR#: [id number] Acct: [id number] Name: CHRISTY FOFANA Rep #: [id number] : 1935 F 89 From: Hayden Ferreira MD PCP: Dr. José Miguel Frias MD Status: PRE ER Study: Brain/Head without Contrast Date of Exam: 07/01 Exam# [id number] Ordering Dr: Lc Lo MD PROCEDURE: BRAIN/HEAD [...] IMPRESSION: No acute intracranial abnormality. Reading Location: [id number] CC: Dr. Lc Lo MD; Dr. José Miguel Frias MD Hydrometallurgical Engineer: Signed Normal [facility] Bilirubin Test strip Ql (U)O rdered By: Emmanuel Park on 09-30-2024 Bilirubin Ql (U) Negative Negative [facility] Ketones Test strip Ql (U)Ord ered By: Emmanuel Park on 09-30-2024 Ketones Ql (U) Negative Negative [facility] Microscopic analysis of urin e for red blood cells (RBC)Ordered By: Emmanuel Park on 09-30-2024 Microscopic analysis of urine for red blood cells (RBC) 0 SEEN /hpf 0-5 [facility] Mucus LM Ql (Urine sed)Order ed By: Emmanuel Park on 09-30-2024 Mucus Ql (Urine sed) 0 SEEN /hpf [facility] Nitrite Test strip Ql (U)Ord ered By: Emmanuel Park on 09-30-2024 Nitrite Ql (U) Negative Negative [facility] Protein Test strip Ql (U)Ord ered By: Emmanuel Park on 09-30-2024 Protein Ql (U) 15 mg/dl High Negative [facility] Squamous epithelial cells de tection in urine sediment by light microscopyOrdered By: Emmanuel Park on 05-27-2025 Epithelial cells.squamous LM Ql (Urine sed) 0-5 SEEN /hpf 5-10 [facility] Urine clarityOrdered By: Mami Park on 09-30-2024 Clarity (U) Clear Clear [facility] Urine color determinationOrd ered By: Emmanuel Park on 09-30-2024 Color (U) Yellow Yellow [facility] Urine cultureOrdered By: Mami Park on 09-30-2024 Bacteria identified Cx Nom (U) Positive Abnormal [facility] Urine glucose detectionOrder ed By: Emmanuel Park on 09-30-2024 Glucose Ql (U) Normal mg/dl Normal [facility] Urine leukocyte esterase det ection by dipstickOrdered By: Emmanuel Park on 09-30-2024 Leukocyte esterase Test strip Ql (U) Negative Negative [facility] Urine pHOrdered By: Emmanuel mora on 09-30-2024 pH (U) 6.0 [pH] 5.0 - 8.0 [facility] Urine sediment bacteria coun t by microscopy (number/high power field)Ordered By: Emmanuel Park on 09-30-2024 Bacteria LM.HPF (Urine sed) [#/Area] 0 /[HPF] None Seen [facility] Urine specific gravity measu rementOrdered By: Emmanuel Park on 09-30-2024 Specific gravity (U) [Rel density] 1.020 1.002-1.03 0 [facility] Urine urobilinogen measureme ntOrdered By: Emmanuel Park on 09-30-2024 Urobilinogen Ql (U) Normal mg/dl Normal [facility] White blood cell countOrdere d By: Emmanuel Park on 09-30-2024 White blood cell count 0-5 SEEN /hpf 0-5 [facility] Anion gap in Serum or Plasma Ordered By: Emmanuel Park on 08-21-2024 Anion gap [Moles/Vol] 9 mmol/L 5-15 [facility] BUN/creatinine ratioOrdered By: Emmanuel Park on 08-21-2024 Urea nitrogen/Creatinine [Mass ratio] 28.9 mg/mg High 10-20 [facility] Bilirubin, totalOrdered By: Emmanuel Park on 08-21-2024 Bilirubin [Mass/Vol] 0.48 mg/dL 0.00-1.30 [facility] Carbon dioxide, total [Moles /volume] in Central venous bloodOrdered By: Emmanuel Park on 08-21-2024 CO2 [Moles/Vol] 25.6 mmol/L 21.0-32.0 [facility] Chloride assayOrdered By: Costa aPrk on 08-21-2024 Chloride [Moles/Vol] 105 mmol/L 98-108 [facility] Glomerular filtration rate ( GFR) estimation/1.73 sq m using serum, plasma, or whole bOrdered By: Emmanuel Park on 08-21-2024 GFR/1.73 sq M.predicted among non-blacks MDRD (S/P/Bld) [Vol rate/Area] 69 mL/min/{1.73_m2} >60 [facility] Comment on above: mL/min/1.73m2 CKD-EP I Creatinine Equation (2020) Laboratory - Chemistry and C hemistry - challengeOrdered By: Emmanuel Park on 08-21-2024 AST [Catalytic activity/Vol] 19 U/L <32 [facility] Potassium measurement (mass/ volume)Ordered By: Emmanuel Park on 08-21-2024 Potassium (Unsp spec) [Mass/Vol] 4.1 mmol/L 3.3-5.1 [facility] Serum creatinine measurement (mass/volume)Ordered By: Emmanuel Park on 08-21-2024 Creatinine [Mass/Vol] 0.82 mg/dL 0.70-1.20 [facility] Serum globulin measurementOr dered By: Emmanuel Park on 08-21-2024 Globulin (S) [Mass/Vol] 2.4 g/dL 2.2-4.2 [facility] Serum glucose measurement (m ass/volume)Ordered By: Emmanuel Park on 08-21-2024 Glucose [Mass/Vol] 80 mg/dL 70-99 [facility] Serum or plasma alanine johnson otransferase (ALT) measurementOrdered By: Emmanuel Park on 08-21-2024 ALT [Catalytic activity/Vol] 12 U/L <35 [facility] Serum or plasma albumin jalil urement (mass/volume)Ordered By: Emmanuel Park on 08-21-2024 Albumin [Mass/Vol] 3.6 g/dL 3.4-4.8 [facility] Serum or plasma albumin/glob ulin mass ratioOrdered By: Emmanuel Park on 08-21-2024 Albumin/Globulin [Mass ratio] 1.5 {ratio} 0.9-2.4 [facility] Serum or plasma alkaline jama sphatase measurementOrdered By: Emmanuel Park on 08-21-2024 ALP [Catalytic activity/Vol] 75 U/L 35-104 [facility] Serum or plasma calcium jalil urement (mass/volume)Ordered By: Emmanuel Park on 08-21-2024 Calcium [Mass/Vol] 8.8 mg/dL 7.6-11.0 [facility] Serum or plasma urea nitroge n measurement (mass/volume)Ordered By: Emmanuel Park on 08-21-2024 Urea nitrogen [Mass/Vol] 24 mg/dL High 4-19 [facility] Sodium levelOrdered By: Harlan Park on 08-21-2024 Sodium [Moles/Vol] 139 mmol/L 133-145 [facility] Total proteinOrdered By: Mami Park on 08-21-2024 Protein [Mass/Vol] 6.0 g/dL 5.9-8.4 [facility] CNPNon 04-23-2024 CNPN Telephone (FAMPTW) CHRISTY FOFANA ([id number]) 1935 F Date Time Provider Department 04/23/24 JOSÉ MIGUEL FRIAS During your visit today, we recorded the following information about you: Ritchie Raghav Niecy 04/23/2024 2:29 PM Signed Assisted Living Thais Aguirre [facility] is calling José Miguel Frias MD today to request a medication not on current med list: Disp Refills Start End hydrOXYzine pamoate (VISTARIL) 25 mg capsule 30 5 Patient has been identified by name and birthdate. Closing statement: Results or non-symptom based questions: Thank you for calling [facility], your call will be returned within the next business day. Niecy Dugan [facility] Delfina Hernandez MA 04/23/2024 4:08 PM Signed [...] Date Reviewed: 05/29/2023 Reviewed by: Mckenzie Funk APRN.ELEVATOR OPERATOR SERVICE - Fully Assessed Reason for Visit: request [...] [I87.2] 10/28 (more content not included)... Normal [facility] Urine Cultureon 04-12-2024 URC Culture exhibits no growth. Normal [facility] Comment on above: Performed By: #### M 100.2200 #### [facility] Laboratory [address] [place], [address] 12 Lead EKGon 04-11-2024 12 Lead EKG [facility] Cardiovascular Services [address] [place] [address] 12 Lead EKG 04/11/24 0610 MR#: [id number] Acct: [id number] Name: CHRISTY FOFANA Rep #: [id number] : 1935 88 From: Cory Hopper MD [...] ) Abnormal ECG Confirmed by Cory Hopper ([id number]), editorial intern NADEEM HINKLE ([id number]) on 04/14/2024 6:52:09 AM Referred By: Confirmed By: Cory Hopper 04/14/24 0652 Date Cory Hopper MD CC: Dr. José Miguel Frias MD; Ellis ChuchoDO tonja Signed Normal [facility] Basic Metabolic Profile (BMP )on 04-11-2024 BUN/CRE 39.7 RATIO High 10-20 [facility] Comment on above: Performed By: #### L 501.5200, L100.0100, L500.2500 #### [facility] Laboratory [address] [place], [address] CA,Total 9.4 mg/dL Normal 8.5-10.1 [facility] Comment on above: Performed By: #### L 501.5200, L100.0100, L500.2500 #### [facility] Laboratory [address] [place], [address] Chloride [Moles/Vol] 103 mmol/L Normal 98-107 [facility] Comment on above: Performed By: #### L 501.5200, L100.0100, L500.2500 #### [facility] Laboratory [address] [place], [address] CO2 [Moles/Vol] 27.0 mmol/L Normal 21.0-32.0 [facility] Comment on above: Performed By: #### L 501.5200, L100.0100, L500.2500 #### [facility] Laboratory [address] [place], [address] Creatinine [Mass/Vol] 0.96 mg/dL Normal 0.55-1.02 [facility] Comment on above: Result Comment: The validity of the calculated GFR GFRAA in patients over 70 years has not been determined. Clinical correlation is essential. Performed By: #### L 501.5200, L100.0100, L500.2500 #### [facility] Laboratory [address] [place], [address] ECRCL 49.15 ml/min Normal [facility] Comment on above: Performed By: #### L 501.5200, L100.0100, L500.2500 #### [facility] Laboratory [address] [place], [address] EST GFR - AA 71 mL/min Normal >60 [facility] Comment on above: Result Comment: Afri can Nigerien GFR Calc Performed By: #### L 501.5200, L100.0100, L500.2500 #### [facility] Laboratory [address] [place], [address] GAP 7 Normal 5-15 [facility] Comment on above: Performed By: #### L 501.5200, L100.0100, L500.2500 #### [facility] Laboratory [address] [place], [address] GFR/1.73 sq M.predicted among non-blacks MDRD (S/P/Bld) [Vol rate/Area] 59 mL/min/{1.73_m2} Low >60 [facility] Comment on above: Result Comment: Non- GFR Calc Performed By: #### L 501.5200, L100.0100, L500.2500 #### [facility] Laboratory [address] [place], [address] Glucose [Mass/Vol] 112 mg/dL High 74-106 [facility] Comment on above: Result Comment: Fast ing Glucose result from 100 to 125 mg/dL suggests IMPAIRED HOMEOSTASIS per A.D.A. criteria. Performed By: #### L 501.5200, L100.0100, L500.2500 #### [facility] Laboratory [address] [place], [address] Potassium [Moles/Vol] 4.1 mmol/L Normal 3.5-5.1 [facility] Comment on above: Performed By: #### L 501.5200, L100.0100, L500.2500 #### [facility] Laboratory [address] [place], [address] Sodium [Moles/Vol] 137 mmol/L Normal 136-145 [facility] Comment on above: Performed By: #### L 501.5200, L100.0100, L500.2500 #### [facility] Laboratory [address] [place], [address] Urea nitrogen [Mass/Vol] 38 mg/dL High 7-18 [facility] Comment on above: Performed By: #### L 501.5200, L100.0100, L500.2500 #### [facility] Laboratory [address] [place], [address] Brain/Head without Contrasto n 04-11-2024 Brain/Head without Contrast [facility] Imaging Services [address] [place] [address] Brain/Head without Contrast MR#: [id number] Acct: [id number] Name: CHRISTY FOFANA Rep #: [id number] : 1935 F 88 From: Mario Ruvalcaba MD PCP: Dr. José Miguel Frias MD Status: REG Study: Brain/Head without Contrast Date of Exam: 10/28 Exam# [id number] Ordering Dr: Ellis Avila DO [id number] EXAM: CT HEAD WITHOUT INTRAVENOUS CONTRAST CLINICAL [...] José Miguel Frias MD; Ellis Avila DO Hydrometallurgical Engineer: Signed Normal [facility] CBC W/Diff, Automatedon 12-0 Absolute Lymph 1.57 X10 3/uL Normal 0.83-4.51 [facility] Comment on above: Performed By: #### L 501.5200, L100.0100, L500.2500 #### [facility] Laboratory [address] [place], [address] Absolute Neut 4.2 X10 3/uL Normal 2.0-7.7 [facility] Comment on above: Performed By: #### L 501.5200, L100.0100, L500.2500 #### [facility] Laboratory [address] [place], [address] Basophils/100 WBC (Bld) 0.6 % Normal 0-1 [facility] Comment on above: Performed By: #### L 501.5200, L100.0100, L500.2500 #### [facility] Laboratory [address] [place], [address] Eosinophils/100 WBC (Bld) 3.0 % Normal 0-5 [facility] [facility] Comment on above: Performed By: #### L 501.5200, L100.0100, L500.2500 #### [facility] [address] [place], [address] Erythrocyte distribution width (RBC) [Ratio] 12.9 % Normal 11.6-14.6 [facility] Comment on above: Performed By: #### L 501.5200, L100.0100, L500.2500 #### [facility] [address] [place], [address] Hematocrit (Bld) [Volume fraction] 41.4 % Normal 37-47 [facility] Comment on above: Performed By: #### L 501.5200, L100.0100, L500.2500 #### [facility] [address] [place], [address] Hemoglobin (Bld) [Mass/Vol] 13.3 g/dL Normal 12.0-15.0 [facility] Comment on above: Performed By: #### L 501.5200, L100.0100, L500.2500 #### [facility] [address] [place], [address] IG% 0.300 Normal 0.0-0.9 [facility] Comment on above: Result Comment: IG% - Immature Granulocytes (promyelocytes, myelocytes and metamyelocytes) > 1% indicates that a LEFT SHIFT is Present. Performed By: #### L 501.5200, L100.0100, L500.2500 #### [facility] [address] [place], [address] Lymphocytes/100 WBC (Bld) 23.4 % Normal 19-41 [facility] Comment on above: Performed By: #### L 501.5200, L100.0100, L500.2500 #### [facility] [address] [place], [address] MCH (RBC) [Entitic mass] 29.7 pg Normal 27.0-32.0 [facility] Comment on above: Performed By: #### L 501.5200, L100.0100, L500.2500 #### [facility] [address] [place], [address] MCHC (RBC) [Mass/Vol] 32.1 g/dL Normal 32-36 [facility] Comment on above: Performed By: #### L 501.5200, L100.0100, L500.2500 #### [facility] [address] [place], [address] MCV (RBC) [Entitic vol] 92.4 fL Normal 81-99 [facility] Comment on above: Performed By: #### L 501.5200, L100.0100, L500.2500 #### [facility] [address] [place], [address] Monocytes/100 WBC (Bld) 9.8 % Normal 0-10 [facility] Comment on above: Performed By: #### L 501.5200, L100.0100, L500.2500 #### [facility] [address] [place], [address] Neutrophils/100 WBC (Bld) 62.9 % Normal 47-70 [facility] Comment on above: Performed By: #### L 501.5200, L100.0100, L500.2500 #### [facility] [address] [place], [address] Nucleated RBC (Bld) [#/Vol] 0 10*3/uL Normal 0-5 [facility] Comment on above: Performed By: #### L 501.5200, L100.0100, L500.2500 #### [facility] [address] [place], [address] Platelet mean volume (Bld) [Entitic vol] 9.7 fL Normal 6.2-12.0 [facility] Comment on above: Performed By: #### L 501.5200, L100.0100, L500.2500 #### [facility] [address] [place], [address] Platelets (Bld) [#/Vol] 208 10*3/uL Normal 150-450 [facility] Comment on above: Performed By: #### L 501.5200, L100.0100, L500.2500 #### [facility] [address] [place], [address] RBC (Bld) [#/Vol] 4.48 10*6/uL Normal 4.2-5.4 [facility] Comment on above: Performed By: #### L 501.5200, L100.0100, L500.2500 #### [facility] [address] [place], [address] RDW SD 43.6 fl Normal 35.1-43.9 [facility] Comment on above: Performed By: #### L 501.5200, L100.0100, L500.2500 #### [facility] [address] [place], [address] WBC (Bld) [#/Vol] 6.7 10*3/uL Normal 4.4-11.0 [facility] Comment on above: Performed By: #### L 501.5200, L100.0100, L500.2500 #### [facility] [address] [place], [address] Emergency Department Summary on 04-11-2024 Emergency Department Summary [facility] Medical Records Department [address] [place] [address] Emergency Department Summary 04/11/24 MR#: [id number] Acct: [id number] Name: CHRISTY FOFANA Rep #: [id number] : 1935 88 From: Ellis Avila DO [...] because [facility] and she was not sent [...] Patient is an 88-year-old female from the long-term with past medical history of hypertension hyperlipidemia [...] worsening symptoms was sent in for evaluation [facility] Medical History Anxiety Spinal stenosis [...] Never smok (more content not included)... Normal [facility] Magnesiumon 04-11-2024 Magnesium [Mass/Vol] 2.5 mg/dL Normal 1.6-2.6 [facility] Comment on above: Performed By: #### L 501.5200, L100.0100, L500.2500 #### [facility] [address] [place], [address] Urinalysis, Completeon 04-11 EPI,SQUAMOUS 0-5 SEEN Normal 5-10 [facility] Comment on above: Order Comment: BLADD ER TAP Performed By: #### L 400.0001 #### [facility] [address] [place], [address] WBC 0-5 SEEN Normal 0-5 [facility] Comment on above: Order Comment: BLADD ER TAP Performed By: #### L 400.0001 #### [facility] [address] [place], [address] BACTERIA 0 SEEN Normal None Seen [facility] Comment on above: Order Comment: BLADD ER TAP Performed By: #### L 400.0001 #### [facility] [address] [place], [address] Mucus Ql (Urine sed) [address] [facility] Comment on above: Order Comment: BLADD ER TAP Performed By: #### L 400.0001 #### [facility] [address] [place], [address] RBC 0 SEEN Normal 0-5 [facility] Comment on above: Order Comment: BLADD ER TAP Performed By: #### L 400.0001 #### [facility] [address] [place], [address] [facility] (INTMWS) CHRISTY FOFANA ([id number]) 1935 F Date Time Provider Department 12/19/23 JOSÉ MIGUEL FRIAS During your visit today, we recorded the following information about you: Lina Berry LPN 12/19/2023 4:52 PM Signed POPULATION HEALTH NAVIGATION OUTREACH Action/FYI Reason for Outreach Care Gap/HCC or Scheduling Wellness Visits Care Gaps due: Medicare Annual Wellness Visit Patient Contacted: Patient is currently at [place], she is seeing in-house Dr. [place] [...] Date Reviewed: 05/29/2023 Reviewed by: Mckenzie Funk, EARTH SCIENCE LABORATORY TECHNICIAN.ELEVATOR OPERATOR SERVICE - Fully Assessed Reason for Visit: Patient [...] with beha (more content not included)... Normal [facility] CNOVon 05-29-2023 CNOV Office Visit (INTMWS ) CHRISTY FOFANA ([id number]) 1935 F Date Time Provider Department 05/29/23 1:00 PM MCKENZIE FUNK INTMWS During your visit today, we recorded the following information about you: Temperature Pulse Respiration Blood pressure 97.5 degrees 91/minute 18/minute 146/78 Weight 84.8 kg Mckenzie Funk, EARTH SCIENCE LABORATORY TECHNICIAN.ELEVATOR OPERATOR SERVICE 05/29/2023 3:06 PM Signed CC: Patient presents [...] Paternal Grandm (more content not included)... Normal [facility] 05-28-2023 CNPN Telephone (INTMWS) CHRISTY FOFANA ([id number]) 1935 F Date Time Provider Department 05/28/23 JOSÉ MIGUEL FRIAS INTWS During your visit today, we recorded the following information about you: Breanne Boggs RN 05/28/2023 11:08 AM Signed Rachael, nurse at [facility] calling and asking for provider to advise on their fax they sent to PCP office on 05/25/23. Rachael reports patient's bilateral lower extremities are much worse today. Questionable cellulitis. Please advise Rachael at [facility] at [phone]. Thank you. José Miguel Frias MD 05/28/2023 12:19 PM Signed Appointment in office if possible or video at the least. Report any fever. Elsy Rosales RN 05/28/2023 1:13 PM Signed Maria Luisa at [facility] called and is notified of providers [...] unspecified [E78.00] (more content not included)... Normal [facility] Doe Basophil percentageOrdered B y: Jhonathan Londono on 02-24-2023 Chloride [Moles/Vol] 110 mmol/L 98-107 [facility] Glucose [Mass/Vol] 80 mg/dL 74-106 [facility] Potassium [Moles/Vol] 3.4 mmol/L 3.5-5.1 [facility] Sodium [Moles/Vol] 143 mmol/L 136-145 [facility] Laboratory - Chemistry and C hemistry - challengeOrdered By: Jhonathan Londono on 02-24-2023 CO2 [Moles/Vol] 26.0 mmol/L 21.0-32.0 [facility] Urea nitrogen/Creatinine [Mass ratio] 61.0 mg/mg 02-23 [facility] No Panel InformationOrdered By: Jhonathan Londono on 02-24-2023 Estimated Creatinine Clearance Calc 46.10 ml/min [facility] Estimated GFR (MDRD) Amer 76 mL/min >60 [facility] Comment on above: GFR Calc Estimated GFR (MDRD) Non-Af Amer 63 mL/min >60 [facility] Comment on above: Non- GFR Calc Thyroid Stimulating Hormone (TSH) 0.60 uIU/mL 0.358-3.74 [facility] Serum or plasma calcium jalil urement (mass/volume)Ordered By: Jhonathan Londono on 02-24-2023 Calcium [Mass/Vol] 8.4 mg/dL 8.5-10.1 [facility] Serum or plasma creatinine m easurement (mass/volume)Ordered By: Jhonathan Londono on 02-24-2023 Creatinine [Mass/Vol] 0.90 mg/dL 0.55-1.02 [facility] Comment on above: The validity of the calculated GFR & GFRAA in patients over 70 years has not been determined. Clinical correlation is essential. Serum or plasma urea nitroge n measurement (mass/volume)Ordered By: Jhonathan Londono on 02-24-2023 Urea nitrogen [Mass/Vol] 55 mg/dL 7-18 [facility] Thin prep Papanicolaou smear with manual screeningOrdered By: Jhonathan Londono on 02-24-2023 Thin prep Papanicolaou smear with manual screening 7 5-15 [facility] Absolute lymphocyte countOrd ered By: De Quiroz on 02-23-2023 Lymphocytes Auto (Unsp spec) [#/Vol] 1.15 10*3/uL 0.83-4.51 [facility] Basophil percentageOrdered B y: De Quiroz on 02-23-2023 Basophil percentage 0-5 SEEN /hpf 0-5 [facility] Basophils/100 WBC (Bld) 0.3 % 0-1 [facility] Bilirubin [Mass/Vol] 0.80 mg/dL 0.20-1.00 [facility] Comment on above: For patients on eltr ombopag therapy, use of Dimension Douglass TBIL is not recommended. Eosinophils/100 WBC (Bld) 2.5 % 0-5 [facility] Neutrophils (Bld) [#/Vol] 4.4 10*3/uL 2.0-7.7 [facility] Neutrophils/100 WBC (Bld) 69.0 % 47-70 [facility] Protein [Mass/Vol] 6.8 g/dL 6.4-8.2 [facility] WBC (Bld) [#/Vol] 6.4 10*3/uL 4.4-11.0 [facility] Bilirubin Test strip Ql (U)O rdered By: De Quiroz on 02-23-2023 Bilirubin Ql (U) Negative Negative [facility] Blood erythrocytes count (nu mber/volume)Ordered By: De Quiroz on 02-23-2023 RBC (Bld) [#/Vol] 3.84 10*6/uL 4.2-5.4 [facility] Blood hemoglobin measurement (mass/volume)Ordered By: De Quiroz on 02-23-2023 Hemoglobin (Bld) [Mass/Vol] 11.6 g/dL 12.0-15.0 [facility] Blood lymphocytes/100 leukoc ytesOrdered By: De Quiroz on 02-23-2023 Lymphocytes/100 WBC (Bld) 18.1 % 19-41 [facility] Blood monocytes/100 leukocyt esOrdered By: De Quiroz on 02-23-2023 Monocytes/100 WBC (Bld) 9.6 % 0-10 [facility] Blood platelet mean volumeOr dered By: De Quiroz on 02-23-2023 Platelet mean volume (Bld) [Entitic vol] 10.1 fL 6.2-12.0 [facility] Determination of erythrocyte mean corpuscular volume (MCV)Ordered By: De Quiroz on 02-23-2023 MCV (RBC) [Entitic vol] 90.9 fL 81-99 [facility] Hematocrit Auto (Bld) [Volum e fraction]Ordered By: De Quiroz on 02-23-2023 Hematocrit (Bld) [Volume fraction] 34.9 % 37-47 [facility] Influenza virus A and B and SARS-CoV-2 (COVID-19) Ag panel - Upper respiratory specimOrdered By: De Quiroz on 02-23-2023 SARS-CoV-2 (COVID-19) RNA YOSHI+probe Ql (Resp) [facility] Ketones Test strip Ql (U)Ord ered By: De Quiroz on 02-23-2023 Ketones Ql (U) Negative Negative [facility] Laboratory - Chemistry and C hemistry - challengeOrdered By: De Quiroz on 02-23-2023 ALP [Catalytic activity/Vol] 86 U/L 45-117 [facility] ALT [Catalytic activity/Vol] 26 U/L 13-56 [facility] Globulin (S) [Mass/Vol] 3.1 g/dL 2.2-4.2 [facility] Laboratory - Chemistry and C hemistry - challengeOrdered By: Jhonathan Londono on 02-23-2023 Magnesium [Mass/Vol] 2.3 mg/dL 1.6-2.6 [facility] Laboratory - Hematology and Cell countsOrdered By: De Quiroz on 02-23-2023 Erythrocyte distribution width (RBC) [Entitic vol] 41.9 fL 35.1-43.9 [facility] Erythrocyte distribution width (RBC) [Ratio] 12.6 % 11.6-14.6 [facility] Immature granulocytes/100 WBC (Bld) 0.500 % 0.0-0.9 [facility] Comment on above: IG% - Immature Granu locytes (promyelocytes, myelocytes and metamyelocytes) > 1% indicates that a LEFT SHIFT is Present. MCH (RBC) [Entitic mass] 30.2 pg 27.0-32.0 [facility] Nucleated RBC/100 WBC (Bld) [Ratio] 0 % 0-5 [facility] MCHC Auto (RBC) [Mass/Vol]Or dered By: De Quiroz on 02-23-2023 MCHC (RBC) [Mass/Vol] 33.2 g/dL 32-36 [facility] Mucus LM Ql (Urine sed)Order ed By: De Quiroz on 02-23-2023 Mucus Ql (Urine sed) 0 SEEN /hpf [facility] Nitrite Test strip Ql (U)Ord ered By: De Quiroz on 02-23-2023 Nitrite Ql (U) Negative Negative [facility] Platelets bldOrdered By: Juice Quiroz on 02-23-2023 Platelets (Bld) [#/Vol] 198 10*3/uL 150-450 [facility] Protein Test strip Ql (U)Ord ered By: De Quiroz on 02-23-2023 Protein Ql (U) Negative Negative [facility] Serum or plasma albumin jalil urement (mass/volume)Ordered By: eD Quiroz on 02-23-2023 Albumin [Mass/Vol] 3.7 g/dL 3.2-5.0 [facility] Serum or plasma albumin/glob ulin mass ratioOrdered By: De Quiroz on 02-23-2023 Albumin/Globulin [Mass ratio] 1.2 {ratio} 0.9-2.4 [facility] Squamous epithelial cells de tection in urine sediment by light microscopyOrdered By: De Quiroz on 02-23-2023 Epithelial cells.squamous LM Ql (Urine sed) 0-5 SEEN /hpf 5-10 [facility] Thin prep Papanicolaou smear with manual screeningOrdered By: De Quiroz on 02-23-2023 Thin prep Papanicolaou smear with manual screening 31 U/L 15-37 [facility] Urine blood detectionOrdered By: De Quiroz on 02-23-2023 RBC Ql (U) Negative Negative [facility] RBC Ql (U) 0 SEEN /hpf 0-5 [facility] Urine clarityOrdered By: Juice Quiroz on 02-23-2023 Clarity (U) Clear Clear [facility] Urine color determinationOrd ered By: De Quiroz on 02-23-2023 Color (U) Yellow Yellow [facility] Urine glucose detectionOrder ed By: De Quiroz on 02-23-2023 Glucose Ql (U) Normal mg/dl Normal [facility] Urine leukocyte esterase det ection by dipstickOrdered By: De Quiroz on 02-23-2023 Leukocyte esterase Test strip Ql (U) 25 /ul Negative [facility] Urine pHOrdered By: De enamorado on 02-23-2023 pH (U) 5.0 [pH] 5.0 - 8.0 [facility] Urine sediment bacteria coun t by microscopy (number/high power field)Ordered By: De Quiroz on 02-23-2023 Bacteria LM.HPF (Urine sed) [#/Area] 0 /[HPF] None Seen [facility] Urine specific gravity measu rementOrdered By: De Quiroz on 02-23-2023 Specific gravity (U) [Rel density] 1.015 1.002-1.03 0 [facility] Urobilinogen Auto test strip Ql (U)Ordered By: De Quiroz on 02-23-2023 Urobilinogen Ql (U) Normal mg/dl Normal [facility] ECG COMPLETEon 12-25-2022 Atrial Rate 59 BPM [facility] Calculated P [place] 97 degrees [facility] Calculated R [place] -47 degrees [facility] Calculated T [place] 2 degrees [facility] P-R Interval 214 ms [facility] QRS Duration 122 ms [facility] QT Interval 506 ms [facility] QTC Calculation (Bazett) 500 ms [facility] Ventricular Rate 59 BPM [facility] Atrial Rate 53 BPM [facility] Calculated P [place] 101 degrees [facility] Calculated R [place] -48 degrees [facility] Calculated T [place] -10 degrees [facility] P-R Interval 218 ms [facility] QRS Duration 118 ms [facility] QT Interval 496 ms [facility] QTC Calculation (Bazett) 465 ms [facility] Ventricular Rate 53 BPM [facility] XR Foot - right AP and Later al and obliqueon 11-03-2022 IMPRESSION: NO ACUTE FRACTURE IDENTIFIED SEVERE FIRST MTP JOINT DEGENERATIVE CHANGE OTHER FINDINGS DESCRIBED Hydrometallurgical Engineer: [facility] Transcribe Date/Time: Nov 03 2022 9:04A Dictated by : TAZ MURILLO MD This examination was interpreted and the report reviewed and electronically signed by: TAZ MURILLO MD on Nov 03 2022 9:07AM [facility] DIVISION OF RADIOLOGY * * *Final [...] MTP JOINT DEGENERATIVE CHANGE OTHER FINDINGS DESCRIBED Hydrometallurgical Engineer: [facility] Transcribe Date/Time: Nov 03 2022 9:04A Dictated by : TAZ MURILLO MD This examination was interpreted and the report reviewed and electronically signed by: TAZ MURILLO MD on Nov 03 2022 9:07AM EST [facility] XR Foot - right AP and Later al and obliqueOrdered By: [facility] Provider on 11-03-2022 [facility] XR Foot - right AP and Later al and obliqueon 10-31-2022 Radiology Study observation (narrative) [facility] Basophil percentageOrdered B y: José Miguel Firas on 10-18-2022 Bilirubin [Mass/Vol] 0.60 mg/dL 0.20-1.00 [facility] Comment on above: For patients on eltr ombopag therapy, use of Dimension [place] TBIL is not recommended. Chloride [Moles/Vol] 103 mmol/L 98-107 [facility] Cholesterol [Mass/Vol] 164 mg/dL <200 [facility] Comment on above: <200 mg/dL Desirable 200-240 mg/dL Borderline >240 mg/dL High Risk Glucose [Mass/Vol] 88 mg/dL 74-106 [facility] Potassium [Moles/Vol] 3.8 mmol/L 3.5-5.1 [facility] Protein [Mass/Vol] 6.9 g/dL 6.4-8.2 [facility] Sodium [Moles/Vol] 138 mmol/L 136-145 [facility] Triglyceride [Mass/Vol] 100 mg/dL <199 [facility] Comment on above: The drugs N-Acetylcy steine and Metamizole may falsely depress this assay.Serum Triglycerides Reference Interval Normal <150 mg/dL Borderline high 150 - 199 mg/dL High 200 - 499 mg/dL Very High > or = 500 mg/dL WBC (Bld) [#/Vol] 4.7 10*3/uL 4.4-11.0 [facility] Blood erythrocytes count (nu mber/volume)Ordered By: José Miguel Frias on 10-18-2022 RBC (Bld) [#/Vol] 4.51 10*6/uL 4.2-5.4 [facility] Blood hemoglobin measurement (mass/volume)Ordered By: José Miguel Frias on 10-18-2022 Hemoglobin (Bld) [Mass/Vol] 13.0 g/dL 12.0-15.0 [facility] Blood platelet mean volumeOr dered By: José Miguel Frias on 10-18-2022 Platelet mean volume (Bld) [Entitic vol] 9.5 fL 6.2-12.0 [facility] Determination of erythrocyte mean corpuscular volume (MCV)Ordered By: José Miguel Frias on 10-18-2022 MCV (RBC) [Entitic vol] 89.4 fL 81-99 [facility] Hematocrit Auto (Bld) [Volum e fraction]Ordered By: José Miguel Frias on 10-18-2022 Hematocrit (Bld) [Volume fraction] 40.3 % 37-47 [facility] Laboratory - Chemistry and C hemistry - challengeOrdered By: José Miguel Frias on 10-18-2022 ALP [Catalytic activity/Vol] 75 U/L 45-117 [facility] ALT [Catalytic activity/Vol] 23 U/L 13-56 [facility] CO2 [Moles/Vol] 29.0 mmol/L 21.0-32.0 [facility] Globulin (S) [Mass/Vol] 3.7 g/dL 2.2-4.2 [facility] Urea nitrogen/Creatinine [Mass ratio] 40.1 mg/mg 10-20 [facility] Laboratory - Hematology and Cell countsOrdered By: José Miguel Frias on 10-18-2022 Erythrocyte distribution width (RBC) [Entitic vol] 42.8 fL 35.1-43.9 [facility] Erythrocyte distribution width (RBC) [Ratio] 13.1 % 11.6-14.6 [facility] MCH (RBC) [Entitic mass] 28.8 pg 27.0-32.0 [facility] MCHC Auto (RBC) [Mass/Vol]Or dered By: José Miguel Frias on 10-18-2022 MCHC (RBC) [Mass/Vol] 32.3 g/dL 32-36 [facility] No Panel InformationOrdered By: José Miguel Frias on 10-18-2022 Estimated GFR (MDRD) Amer 68 mL/min >60 [facility] Comment on above: GFR Calc Estimated GFR (MDRD) Non-Af Amer 56 mL/min >60 [facility] Comment on above: Non- GFR Calc Thyroid Stimulating Hormone (TSH) 0.31 uIU/mL 0.358-3.74 [facility] Platelets bldOrdered By: Kris Frias on 10-18-2022 Platelets (Bld) [#/Vol] 202 10*3/uL 150-450 [facility] Serum or plasma albumin jalil urement (mass/volume)Ordered By: José Miguel Frias on 10-18-2022 Albumin [Mass/Vol] 3.2 g/dL 3.2-5.0 [facility] Serum or plasma albumin/glob ulin mass ratioOrdered By: José Miguel Frias on 10-18-2022 Albumin/Globulin [Mass ratio] 0.9 {ratio} 0.9-2.4 [facility] Serum or plasma calcium jalil urement (mass/volume)Ordered By: José Miguel Frias on 10-18-2022 Calcium [Mass/Vol] 9.2 mg/dL 8.5-10.1 [facility] Serum or plasma cholesterol in HDL measurement (mass/volume)Ordered By: José Miguel Frias on 10-18-2022 Cholesterol in HDL [Mass/Vol] 80 mg/dL >40 [facility] Comment on above: The drugs N-Acetylcy steine and Metamizole may falsely depress this assay. Reference Range HDL <40 mg/dL Low HDL Cholesterol HDL >or= 60 mg/dL High HDL Cholesterol Serum or plasma cholesterol in VLDL measurement (mass/volume)Ordered By: José Miguel Frias on 10-18-2022 Cholesterol in VLDL [Mass/Vol] 20 mg/dL 5-40 [facility] Serum or plasma creatinine m easurement (mass/volume)Ordered By: José Miguel Frias on 10-18-2022 Creatinine [Mass/Vol] 1.00 mg/dL 0.55-1.02 [facility] Comment on above: The validity of the calculated GFR & GFRAA in patients over 70 years has not been determined. Clinical correlation is essential. Serum or plasma low density lipoprotein (LDL) cholesterol measurement (mass/volume)Ordered By: José Miguel Frias on 10-18-2022 Cholesterol in LDL [Mass/Vol] 64 mg/dL 0-130 [facility] Serum or plasma urea nitroge n measurement (mass/volume)Ordered By: José Miguel Frias on 10-18-2022 Urea nitrogen [Mass/Vol] 40 mg/dL 7-18 [facility] Thin prep Papanicolaou smear with manual screeningOrdered By: José Miguel Frias on 10-18-2022 Thin prep Papanicolaou smear with manual screening 16 U/L 15-37 [facility] Thin prep Papanicolaou smear with manual screening 6 5-15 [facility] Culture, urineOrdered By: Christine Frias on 08-27-2022 Bacteria identified Cx Nom (U) Positive [facility] Basophil percentageOrdered B y: José Miguel Frias on 08-25-2022 Basophil percentage 0 SEEN /hpf 0-5 [facility] Bilirubin Test strip Ql (U)O rdered By: José Miguel Frias on 08-25-2022 Bilirubin Ql (U) Negative Negative [facility] Ketones Test strip Ql (U)Ord ered By: José Miguel Frias on 08-25-2022 Ketones Ql (U) Negative Negative [facility] Mucus LM Ql (Urine sed)Order ed By: José Miguel Frias on 08-25-2022 Mucus Ql (Urine sed) 0 SEEN /hpf [facility] Nitrite Test strip Ql (U)Ord ered By: José Miguel Frias on 08-25-2022 Nitrite Ql (U) Negative Negative [facility] Protein Test strip Ql (U)Ord ered By: José Miguel Frias on 08-25-2022 Protein Ql (U) Negative Negative [facility] Squamous epithelial cells de tection in urine sediment by light microscopyOrdered By: José Miguel Frias on 08-25-2022 Epithelial cells.squamous LM Ql (Urine sed) 0 SEEN /hpf 5-10 [facility] Urine blood detectionOrdered By: José Miguel Frias on 08-25-2022 RBC Ql (U) Negative Negative [facility] RBC Ql (U) 0 SEEN /hpf 0-5 [facility] Urine clarityOrdered By: Kris Frias on 08-25-2022 Clarity (U) Clear Clear [facility] Urine color determinationOrd ered By: José Miguel Frias on 08-25-2022 Color (U) Yellow Yellow [facility] Urine glucose detectionOrder ed By: José Miguel Frias on 08-25-2022 Glucose Ql (U) Normal mg/dl Normal [facility] Urine leukocyte esterase det ection by dipstickOrdered By: José Miguel Frias on 08-25-2022 Leukocyte esterase Test strip Ql (U) Negative Negative [facility] Urine pHOrdered By: José Miguel odell on 08-25-2022 pH (U) 6.0 [pH] 5.0 - 8.0 [facility] Urine sediment bacteria coun t by microscopy (number/high power field)Ordered By: José Miguel Frias on 08-25-2022 Bacteria LM.HPF (Urine sed) [#/Area] 0 /[HPF] None Seen [facility] Urine specific gravity measu rementOrdered By: José Miguel Frias on 08-25-2022 Specific gravity (U) [Rel density] 1.010 1.002-1.03 0 [facility] Urobilinogen Auto test strip Ql (U)Ordered By: José Miguel Frias on 08-25-2022 Urobilinogen Ql (U) Normal mg/dl Normal [facility] Qualitative QuantiFERON-TB g old in tube testOrdered By: José Miguel Frias on 07-28-2022 M. tuberculosis tuberculin stim IFN-g Ql (Bld) 0.66 IU/mL . [facility] Thin prep Papanicolaou smear with manual screeningOrdered By: José Miguel Frias on 07-28-2022 Thin prep Papanicolaou smear with manual screening Comment . [facility] Comment on above: QuantiFERON-TB Gold Plus [...] smear with manual screening 0.63 IU/mL . [facility] Thin prep Papanicolaou smear with manual screening 0.50 IU/mL . [facility] Thin prep Papanicolaou smear with manual screening > 10.00 IU/mL . [facility] Thin prep Papanicolaou smear with manual screening Negative Negative [facility] Comment on above: No response to [...] the productionof interferon gamma. Chemiluminescence immunoassaymethodologyPerformed at: [email or web address] [id number] Director: Kingsley He PhD, Phone: [phone] Culture, urineOrdered By: Christine Frias on 07-20-2022 Bacteria identified Cx Nom (U) Positive [facility] Basophil percentageOrdered B y: José Miguel Frias on 07-18-2022 Basophil percentage 0 SEEN /hpf 0-5 [facility] Bilirubin Test strip Ql (U)O rdered By: José Miguel Frias on 07-18-2022 Bilirubin Ql (U) Negative Negative [facility] Ketones Test strip Ql (U)Ord ered By: José Miguel Frias on 07-18-2022 Ketones Ql (U) Negative Negative [facility] Mucus LM Ql (Urine sed)Order ed By: José Miguel Frias on 07-18-2022 Mucus Ql (Urine sed) 0 SEEN /hpf [facility] Nitrite Test strip Ql (U)Ord ered By: José Miguel Frias on 07-18-2022 Nitrite Ql (U) Negative Negative [facility] Protein Test strip Ql (U)Ord ered By: José Miguel Frias on 07-18-2022 Protein Ql (U) Negative Negative [facility] Squamous epithelial cells de tection in urine sediment by light microscopyOrdered By: José Miguel Frias on 07-18-2022 Epithelial cells.squamous LM Ql (Urine sed) 0-5 SEEN /hpf 5-10 [facility] Urine blood detectionOrdered By: José Miguel Frias on 07-18-2022 RBC Ql (U) Negative Negative [facility] RBC Ql (U) 0 SEEN /hpf 0-5 [facility] Urine clarityOrdered By: Kris Frias on 07-18-2022 Clarity (U) Sl. Cloudy Clear [facility] Urine color determinationOrd ered By: José Miguel Frias on 07-18-2022 Color (U) Yellow Yellow [facility] Urine glucose detectionOrder ed By: José Miguel Frias on 07-18-2022 Glucose Ql (U) Normal mg/dl Normal [facility] Urine leukocyte esterase det ection by dipstickOrdered By: José Miguel Frias on 07-18-2022 Leukocyte esterase Test strip Ql (U) Negative Negative [facility] Urine pHOrdered By: José Miguel odell on 07-18-2022 pH (U) 6.5 [pH] 5.0 - 8.0 [facility] Urine sediment bacteria coun t by microscopy (number/high power field)Ordered By: José Miguel Frias on 07-18-2022 Bacteria LM.HPF (Urine sed) [#/Area] 0 /[HPF] None Seen [facility] Urine specific gravity measu rementOrdered By: José Miguel Frias on 07-18-2022 Specific gravity (U) [Rel density] 1.015 1.002-1.03 0 [facility] Urobilinogen Auto test strip Ql (U)Ordered By: José Miguel Frias on 07-18-2022 Urobilinogen Ql (U) Normal mg/dl Normal [facility] Basophil percentageOrdered B y: Mary Rob on 05-17-2022 Bilirubin [Mass/Vol] 0.50 mg/dL 0.20-1.00 [facility] Comment on above: For patients on eltr ombopag therapy, use of Dimension [place] TBIL is not recommended. Chloride [Moles/Vol] 105 mmol/L 98-107 [facility] Cholesterol [Mass/Vol] 137 mg/dL <200 [facility] Comment on above: <200 mg/dL Desirable 200-240 mg/dL Borderline >240 mg/dL High Risk Glucose [Mass/Vol] 81 mg/dL 74-106 [facility] Potassium [Moles/Vol] 3.8 mmol/L 3.5-5.1 [facility] Protein [Mass/Vol] 5.6 g/dL 6.4-8.2 [facility] Sodium [Moles/Vol] 140 mmol/L 136-145 [facility] Triglyceride [Mass/Vol] 75 mg/dL <199 [facility] Comment on above: The drugs N-Acetylcy steine and Metamizole may falsely depress this assay.Serum Triglycerides Reference Interval Normal <150 mg/dL Borderline high 150 - 199 mg/dL High 200 - 499 mg/dL Very High > or = 500 mg/dL WBC (Bld) [#/Vol] 5.5 10*3/uL 4.4-11.0 [facility] Blood erythrocytes count (nu mber/volume)Ordered By: Mary Rob on 05-17-2022 RBC (Bld) [#/Vol] 4.68 10*6/uL 4.2-5.4 [facility] Blood hemoglobin measurement (mass/volume)Ordered By: Mary Rob on 05-17-2022 Hemoglobin (Bld) [Mass/Vol] 13.4 g/dL 12.0-15.0 [facility] Blood platelet mean volumeOr dered By: Mary Rob on 05-17-2022 Platelet mean volume (Bld) [Entitic vol] 10.7 fL 6.2-12.0 [facility] Determination of erythrocyte mean corpuscular volume (MCV)Ordered By: Mary Rob on 05-17-2022 MCV (RBC) [Entitic vol] 90.0 fL 81-99 [facility] Hematocrit Auto (Bld) [Volum e fraction]Ordered By: Mary Rob on 05-17-2022 Hematocrit (Bld) [Volume fraction] 42.1 % 37-47 [facility] Laboratory - Chemistry and C hemistry - challengeOrdered By: Mary Rob on 05-17-2022 ALP [Catalytic activity/Vol] 75 U/L 45-117 [facility] ALT [Catalytic activity/Vol] 22 U/L 13-56 [facility] CO2 [Moles/Vol] 29.0 mmol/L 21.0-32.0 [facility] Globulin (S) [Mass/Vol] 3.0 g/dL 2.2-4.2 [facility] Urea nitrogen/Creatinine [Mass ratio] 38.7 mg/mg 10-20 [facility] Laboratory - Hematology and Cell countsOrdered By: Mary Rob on 05-17-2022 Erythrocyte distribution width (RBC) [Entitic vol] 44.4 fL 35.1-43.9 [facility] Erythrocyte distribution width (RBC) [Ratio] 13.5 % 11.6-14.6 [facility] MCH (RBC) [Entitic mass] 28.6 pg 27.0-32.0 [facility] MCHC Auto (RBC) [Mass/Vol]Or dered By: Mary Rob on 05-17-2022 MCHC (RBC) [Mass/Vol] 31.8 g/dL 32-36 [facility] No Panel InformationOrdered By: Mary Rob on 05-17-2022 Estimated GFR (MDRD) Amer 103 mL/min >60 [facility] Comment on above: GFR Calc Estimated GFR (MDRD) Non-Af Amer 85 mL/min >60 [facility] Comment on above: Non- GFR Calc Thyroid Stimulating Hormone (TSH) 0.78 uIU/mL 0.358-3.74 [facility] Platelets bldOrdered By: Mary Rob on 05-17-2022 Platelets (Bld) [#/Vol] 185 10*3/uL 150-450 [facility] Serum or plasma albumin jalil urement (mass/volume)Ordered By: Mary Rob on 05-17-2022 Albumin [Mass/Vol] 2.6 g/dL 3.2-5.0 [facility] Serum or plasma albumin/glob ulin mass ratioOrdered By: Mary Rob on 05-17-2022 Albumin/Globulin [Mass ratio] 0.9 {ratio} 0.9-2.4 [facility] Serum or plasma calcium jalil urement (mass/volume)Ordered By: Mary Rob on 05-17-2022 Calcium [Mass/Vol] 8.4 mg/dL 8.5-10.1 [facility] Serum or plasma cholesterol in HDL measurement (mass/volume)Ordered By: Mary Rob on 05-17-2022 Cholesterol in HDL [Mass/Vol] 67 mg/dL >40 [facility] Comment on above: The drugs N-Acetylcy steine and Metamizole may falsely depress this assay. Reference Range HDL <40 mg/dL Low HDL Cholesterol HDL >or= 60 mg/dL High HDL Cholesterol Serum or plasma cholesterol in VLDL measurement (mass/volume)Ordered By: Mary Rob on 05-17-2022 Cholesterol in VLDL [Mass/Vol] 15 mg/dL 5-40 [facility] Serum or plasma creatinine m easurement (mass/volume)Ordered By: Mary Rob on 05-17-2022 Creatinine [Mass/Vol] 0.70 mg/dL 0.55-1.02 [facility] Comment on above: The validity of the calculated GFR & GFRAA in patients over 70 years has not been determined. Clinical correlation is essential. Serum or plasma low density lipoprotein (LDL) cholesterol measurement (mass/volume)Ordered By: Mary Rob on 05-17-2022 Cholesterol in LDL [Mass/Vol] 55 mg/dL 0-130 [facility] Serum or plasma urea nitroge n measurement (mass/volume)Ordered By: Mary Rob on 05-17-2022 Urea nitrogen [Mass/Vol] 27 mg/dL 7-18 [facility] Thin prep Papanicolaou smear with manual screeningOrdered By: Mary Rob on 05-17-2022 Thin prep Papanicolaou smear with manual screening 13 U/L 15-37 [facility] Thin prep Papanicolaou smear with manual screening 6 5-15 [facility] Basophil percentageOrdered B y: Dr. Lo on 04-27-2022 Basophil percentage 0-5 SEEN /hpf 0-5 [facility] Bilirubin Test strip Ql (U)O rdered By: Dr. Lo on 04-27-2022 Bilirubin Ql (U) Negative Negative [facility] Ketones Test strip Ql (U)Ord ered By: Dr. Lo on 04-27-2022 Ketones Ql (U) 5 mg/dl Negative [facility] Laboratory - Drug toxicology Ordered By: Dr. Lo on 04-27-2022 Amphetamines Ql (U) Negative <1000 ng/mL [facility] Benzodiazepines Ql (U) Negative < 200 ng/mL [facility] Cannabinoids Screen Ql (U) Negative < 50 ng/mL [facility] Cocaine Ql (U) Negative < 300 ng/mL [facility] Opiates Ql (U) Negative < 300 ng/mL [facility] Mucus LM Ql (Urine sed)Order ed By: Dr. Lo on 04-27-2022 Mucus Ql (Urine sed) 2+ /hpf [facility] Nitrite Test strip Ql (U)Ord ered By: Dr. Lo on 04-27-2022 Nitrite Ql (U) Negative Negative [facility] No Panel InformationOrdered By: Dr. Lo on 04-27-2022 MDMA (Ecstasy) Screen Negative < 500 ng/mL [facility] Urine Barbiturates Screen Negative < 200 ng/mL [facility] Urine Drug Screen Comment [facility] Comment on above: CONFIRMATORY TESTING FOR [...] Urine Methadone Screen Negative < 300 ng/mL [facility] Protein Test strip Ql (U)Ord ered By: Dr. Lo on 04-27-2022 Protein Ql (U) 15 mg/dl Negative [facility] Squamous epithelial cells de tection in urine sediment by light microscopyOrdered By: Dr. Lo on 04-27-2022 Epithelial cells.squamous LM Ql (Urine sed) 0 SEEN /hpf 5-10 [facility] Urine blood detectionOrdered By: Dr. Lo on 04-27-2022 RBC Ql (U) Negative Negative [facility] RBC Ql (U) 0 SEEN /hpf 0-5 [facility] Urine clarityOrdered By: Dr. Lo on 04-27-2022 Clarity (U) Clear Clear [facility] Urine color determinationOrd ered By: Dr. Lo on 04-27-2022 Color (U) Yellow Yellow [facility] Urine glucose detectionOrder ed By: Dr. Lo on 04-27-2022 Glucose Ql (U) Normal mg/dl Normal [facility] Urine leukocyte esterase det ection by dipstickOrdered By: Dr. Lo on 04-27-2022 Leukocyte esterase Test strip Ql (U) 25 /ul Negative [facility] Urine pHOrdered By: Dr. Clauida jane on 04-27-2022 pH (U) 6.5 [pH] 5.0 - 8.0 [facility] Urine phencyclidine (PCP) de tectionOrdered By: Dr. Lo on 04-27-2022 Phencyclidine Ql (U) Negative < 25 ng/mL [facility] Urine sediment bacteria coun t by microscopy (number/high power field)Ordered By: Dr. Lo on 04-27-2022 Bacteria LM.HPF (Urine sed) [#/Area] 1 /[HPF] None Seen [facility] Urine specific gravity measu rementOrdered By: Dr. Lo on 04-27-2022 Specific gravity (U) [Rel density] 1.020 1.002-1.03 0 [facility] Urobilinogen Auto test strip Ql (U)Ordered By: Dr. Lo on 04-27-2022 Urobilinogen Ql (U) 1 mg/dl Normal [facility] Absolute lymphocyte countOrd ered By: Dr. Lo on 04-26-2022 Lymphocytes Auto (Unsp spec) [#/Vol] 1.37 10*3/uL 0.83-4.51 [facility] Basophil percentageOrdered B y: Dr. Lo on 04-26-2022 Basophils/100 WBC (Bld) 0.5 % 0-1 [facility] Bilirubin [Mass/Vol] 1.00 mg/dL 0.20-1.00 [facility] Comment on above: For patients on eltr ombopag therapy, use of Dimension [place] TBIL is not recommended. Chloride [Moles/Vol] 105 mmol/L 98-107 [facility] Eosinophils/100 WBC (Bld) 1.2 % 0-5 [facility] Glucose [Mass/Vol] 104 mg/dL 74-106 [facility] Comment on above: Fasting Glucose resu lt from 100 to 125 mg/dL suggests IMPAIRED HOMEOSTASIS per A.D.A. criteria. Neutrophils (Bld) [#/Vol] 3.5 10*3/uL 2.0-7.7 [facility] Neutrophils/100 WBC (Bld) 62.0 % 47-70 [facility] Potassium [Moles/Vol] 3.0 mmol/L 3.5-5.1 [facility] Protein [Mass/Vol] 6.4 g/dL 6.4-8.2 [facility] Sodium [Moles/Vol] 139 mmol/L 136-145 [facility] WBC (Bld) [#/Vol] 5.7 10*3/uL 4.4-11.0 [facility] Blood erythrocytes count (nu mber/volume)Ordered By: Dr. Lo on 04-26-2022 RBC (Bld) [#/Vol] 5.09 10*6/uL 4.2-5.4 [facility] Blood hemoglobin measurement (mass/volume)Ordered By: Dr. Lo on 04-26-2022 Hemoglobin (Bld) [Mass/Vol] 14.6 g/dL 12.0-15.0 [facility] Blood lymphocytes/100 leukoc ytesOrdered By: Dr. Lo on 04-26-2022 Lymphocytes/100 WBC (Bld) 24.1 % 19-41 [facility] Blood monocytes/100 leukocyt esOrdered By: Dr. Lo on 04-26-2022 Monocytes/100 WBC (Bld) 12.0 % 0-10 [facility] Blood platelet mean volumeOr dered By: Dr. Lo on 04-26-2022 Platelet mean volume (Bld) [Entitic vol] 10.3 fL 6.2-12.0 [facility] COVID-19 virus antigen assay Ordered By: Dr. Lo on 04-26-2022 SARS-CoV-2 (COVID-19) Ag IA.rapid Ql (Resp) [facility] Determination of erythrocyte mean corpuscular volume (MCV)Ordered By: Dr. Lo on 04-26-2022 MCV (RBC) [Entitic vol] 88.2 fL 81-99 [facility] Hematocrit Auto (Bld) [Volum e fraction]Ordered By: Dr. Lo on 04-26-2022 Hematocrit (Bld) [Volume fraction] 44.9 % 37-47 [facility] Laboratory - Chemistry and C hemistry - challengeOrdered By: Dr. Lo on 04-26-2022 ALP [Catalytic activity/Vol] 133 U/L 45-117 [facility] ALT [Catalytic activity/Vol] 16 U/L 13-56 [facility] CO2 [Moles/Vol] 25.0 mmol/L 21.0-32.0 [facility] Globulin (S) [Mass/Vol] 3.2 g/dL 2.2-4.2 [facility] Urea nitrogen/Creatinine [Mass ratio] 20.7 mg/mg 10-20 [facility] Laboratory - Hematology and Cell countsOrdered By: Dr. Lo on 04-26-2022 Erythrocyte distribution width (RBC) [Entitic vol] 42.0 fL 35.1-43.9 [facility] Erythrocyte distribution width (RBC) [Ratio] 13.0 % 11.6-14.6 [facility] Immature granulocytes/100 WBC (Bld) 0.200 % 0.0-0.9 [facility] Comment on above: IG% - Immature Granu locytes (promyelocytes, myelocytes and metamyelocytes) > 1% indicates that a LEFT SHIFT is Present. MCH (RBC) [Entitic mass] 28.7 pg 27.0-32.0 [facility] Nucleated RBC/100 WBC (Bld) [Ratio] 0 % 0-5 [facility] MCHC Auto (RBC) [Mass/Vol]Or dered By: Dr. Lo on 04-26-2022 MCHC (RBC) [Mass/Vol] 32.5 g/dL 32-36 [facility] No Panel InformationOrdered By: Dr. Lo on 04-26-2022 Estimated Creatinine Clearance Calc 48.56 ml/min [facility] Estimated GFR (MDRD) Amer 80 mL/min >60 [facility] Comment on above: GFR Calc Estimated GFR (MDRD) Non-Af Amer 66 mL/min >60 [facility] Comment on above: Non- GFR Calc Ethyl Alcohol Level < 3.0 mg/dL [facility] Comment on above: The serum:whole bloo d ethanol ratio is approximately 1.14and varies slightly with hematocrit. Medical Alcohol reference interval and critical value innon-tolerant individuals; 50 - 100 Impairment 100 Intoxication 100 - 250 Severe Poisoning 250 - 400 Deep/possible fatal coma Platelets bldOrdered By: Dr. Lo on 04-26-2022 Platelets (Bld) [#/Vol] 229 10*3/uL 150-450 [facility] Serum or plasma albumin jalil urement (mass/volume)Ordered By: Dr. Lo on 04-26-2022 Albumin [Mass/Vol] 3.2 g/dL 3.2-5.0 [facility] Serum or plasma albumin/glob ulin mass ratioOrdered By: Dr. Lo on 04-26-2022 Albumin/Globulin [Mass ratio] 1.0 {ratio} 0.9-2.4 [facility] Serum or plasma calcium jalil urement (mass/volume)Ordered By: Dr. Lo on 04-26-2022 Calcium [Mass/Vol] 8.7 mg/dL 8.5-10.1 [facility] Serum or plasma creatinine m easurement (mass/volume)Ordered By: Dr. Lo on 04-26-2022 Creatinine [Mass/Vol] 0.87 mg/dL 0.55-1.02 [facility] Comment on above: The validity of the calculated GFR & GFRAA in patients over 70 years has not been determined. Clinical correlation is essential. Serum or plasma urea nitroge n measurement (mass/volume)Ordered By: Dr. Lo on 04-26-2022 Urea nitrogen [Mass/Vol] 18 mg/dL 7-18 [facility] Thin prep Papanicolaou smear with manual screeningOrdered By: Dr. Lo on 04-26-2022 Thin prep Papanicolaou smear with manual screening 14 U/L 15-37 [facility] Thin prep Papanicolaou smear with manual screening 9 5-15 [facility] Culture, urineOrdered By: Dr Selena Herrera on 03-27-2022 Bacteria identified Cx Nom (U) Mixed Gram Pos & Gram Neg Org [facility] Absolute lymphocyte countOrd ered By: Dr. Herrera on 03-26-2022 Lymphocytes Auto (Unsp spec) [#/Vol] 0.97 10*3/uL 0.83-4.51 [facility] Basophil percentageOrdered B y: Dr. Herrera on 03-26-2022 Basophil percentage 0 SEEN /hpf 0-5 [facility] Basophils/100 WBC (Bld) 0.3 % 0-1 [facility] Chloride [Moles/Vol] 109 mmol/L 98-107 [facility] Eosinophils/100 WBC (Bld) 0.8 % 0-5 [facility] Glucose [Mass/Vol] 107 mg/dL 74-106 [facility] Comment on above: Fasting Glucose resu lt from 100 to 125 mg/dL suggests IMPAIRED HOMEOSTASIS per A.D.A. criteria. Lactate [Moles/Vol] 1.4 mmol/L 0.4-2.0 [facility] Neutrophils (Bld) [#/Vol] 4.7 10*3/uL 2.0-7.7 [facility] Neutrophils/100 WBC (Bld) 73.0 % 47-70 [facility] Potassium [Moles/Vol] 3.2 mmol/L 3.5-5.1 [facility] Sodium [Moles/Vol] 142 mmol/L 136-145 [facility] WBC (Bld) [#/Vol] 6.4 10*3/uL 4.4-11.0 [facility] Bilirubin Test strip Ql (U)O rdered By: Dr. Herrera on 03-26-2022 Bilirubin Ql (U) Negative Negative [facility] Blood erythrocytes count (nu mber/volume)Ordered By: Dr. Herrera on 03-26-2022 RBC (Bld) [#/Vol] 4.85 10*6/uL 4.2-5.4 [facility] Blood hemoglobin measurement (mass/volume)Ordered By: Dr. Herrera on 03-26-2022 Hemoglobin (Bld) [Mass/Vol] 14.4 g/dL 12.0-15.0 [facility] Blood lymphocytes/100 leukoc ytesOrdered By: Dr. Herrera on 03-26-2022 Lymphocytes/100 WBC (Bld) 15.2 % 19-41 [facility] Blood monocytes/100 leukocyt esOrdered By: Dr. Herrera on 03-26-2022 Monocytes/100 WBC (Bld) 10.4 % 0-10 [facility] Blood platelet mean volumeOr dered By: Dr. Herrera on 03-26-2022 Platelet mean volume (Bld) [Entitic vol] 10.6 fL 6.2-12.0 [facility] Determination of erythrocyte mean corpuscular volume (MCV)Ordered By: Dr. Herrera on 03-26-2022 MCV (RBC) [Entitic vol] 90.5 fL 81-99 [facility] Hematocrit Auto (Bld) [Volum e fraction]Ordered By: Dr. Herrera on 03-26-2022 Hematocrit (Bld) [Volume fraction] 43.9 % 37-47 [facility] Ketones Test strip Ql (U)Ord ered By: Dr. Herrera on 03-26-2022 Ketones Ql (U) 5 mg/dl Negative [facility] Laboratory - Chemistry and C hemistry - challengeOrdered By: Dr. Herrera on 03-26-2022 CO2 [Moles/Vol] 26.0 mmol/L 21.0-32.0 [facility] Urea nitrogen/Creatinine [Mass ratio] 36.3 mg/mg 10- [facility] Laboratory - Hematology and Cell countsOrdered By: Dr. Herrera on 03-26-2022 Erythrocyte distribution width (RBC) [Entitic vol] 43.6 fL 35.1-43.9 [facility] Erythrocyte distribution width (RBC) [Ratio] 13.2 % 11.6-14.6 [facility] Immature granulocytes/100 WBC (Bld) 0.300 % 0.0-0.9 [facility] Comment on above: IG% - Immature Granu locytes (promyelocytes, myelocytes and metamyelocytes) > 1% indicates that a LEFT SHIFT is Present. MCH (RBC) [Entitic mass] 29.7 pg 27.0-32.0 [facility] Nucleated RBC/100 WBC (Bld) [Ratio] 0 % 0-5 [facility] MCHC Auto (RBC) [Mass/Vol]Or dered By: Dr. Herrera on 03-26-2022 MCHC (RBC) [Mass/Vol] 32.8 g/dL 32-36 [facility] Mucus LM Ql (Urine sed)Order ed By: Dr. Herrera on 03-26-2022 Mucus Ql (Urine sed) 0 SEEN /hpf [facility] Nitrite Test strip Ql (U)Ord ered By: Dr. Herrera on 03-26-2022 Nitrite Ql (U) Negative Negative [facility] No Panel InformationOrdered By: Dr. Herrera on 03-26-2022 Estimated Creatinine Clearance Calc 42.25 ml/min [facility] Estimated GFR (MDRD) Amer 100 mL/min >60 [facility] Comment on above: GFR Calc Estimated GFR (MDRD) Non-Af Amer 82 mL/min >60 [facility] Comment on above: Non- GFR Calc Troponin I High Sensitivity 27 pg/mL 3.0-54.0 [facility] Comment on above: Please Note: New Madiha t Units and Gender Specific Reference Ranges. For more information see Policy Stat Procedure [place] High Sensitivity Troponin (TNIH) and attachments. Platelets bldOrdered By: Dr. Herrera on 03-26-2022 Platelets (Bld) [#/Vol] 218 10*3/uL 150-450 [facility] Protein Test strip Ql (U)Ord ered By: Dr. Herrera on 03-26-2022 Protein Ql (U) Negative Negative [facility] Serum or plasma calcium jalil urement (mass/volume)Ordered By: Dr. Herrera on 03-26-2022 Calcium [Mass/Vol] 9.3 mg/dL 8.5-10.1 [facility] Serum or plasma creatinine m easurement (mass/volume)Ordered By: Dr. Herrera on 03-26-2022 Creatinine [Mass/Vol] 0.72 mg/dL 0.55-1.02 [facility] Comment on above: The validity of the calculated GFR & GFRAA in patients over 70 years has not been determined. Clinical correlation is essential. Serum or plasma urea nitroge n measurement (mass/volume)Ordered By: Dr. Herrera on 03-26-2022 Urea nitrogen [Mass/Vol] 26 mg/dL 7-18 [facility] Squamous epithelial cells de tection in urine sediment by light microscopyOrdered By: Dr. Herrera on 03-26-2022 Epithelial cells.squamous LM Ql (Urine sed) 0-5 SEEN /hpf 5-10 [facility] Thin prep Papanicolaou smear with manual screeningOrdered By: Dr. Herrera on 03-26-2022 Thin prep Papanicolaou smear with manual screening 7 5-15 [facility] Urine blood detectionOrdered By: Dr. Herrera on 03-26-2022 RBC Ql (U) 10 /ul Negative [facility] RBC Ql (U) 0 SEEN /hpf 0-5 [facility] Urine clarityOrdered By: Dr. Herrera on 03-26-2022 Clarity (U) Clear Clear [facility] Urine color determinationOrd ered By: Dr. Herrera on 03-26-2022 Color (U) Yellow Yellow [facility] Urine glucose detectionOrder ed By: Dr. Herrera on 03-26-2022 Glucose Ql (U) Normal mg/dl Normal [facility] Urine leukocyte esterase det ection by dipstickOrdered By: Dr. Herrera on 03-26-2022 Leukocyte esterase Test strip Ql (U) Negative Negative [facility] Urine pHOrdered By: Dr. Cindy purvis on 03-26-2022 pH (U) 6.5 [pH] 5.0 - 8.0 [facility] Urine sediment bacteria coun t by microscopy (number/high power field)Ordered By: Dr. Herrera on 03-26-2022 Bacteria LM.HPF (Urine sed) [#/Area] 0 /[HPF] None Seen [facility] Urine specific gravity measu rementOrdered By: Dr. Herrera on 03-26-2022 Specific gravity (U) [Rel density] 1.020 1.002-1.03 0 [facility] Urobilinogen Auto test strip Ql (U)Ordered By: Dr. Herrera on 03-26-2022 Urobilinogen Ql (U) Normal mg/dl Normal [facility] Office Visiton 02-22-2017 Fall risk assessment No Invalid Interpretation Code [facility] Work Phone: [phone] Protein mass conc Done Invalid Interpretation Code [facility] Work Phone: [phone] Tobacco smoking status NHIS Never smoker Invalid Interpretation Code [facility] Work Phone: [phone] Clinical Lists Update: Pre [employer] 12-30-2015 Left ventricular Ejection fraction 55 % Invalid Interpretation Code [facility] Work Phone: [phone] Clinical Lists Update: [facility]12-23-2015 Albumin mass conc 3.9 g/dL Invalid Interpretation Code [facility] Work Phone: [phone] ALP enzyme act/vol (Bld) 80 U/L Invalid Interpretation Code [employer] Work Phone: [phone] ALT enzyme act/vol 14 U/L Invalid Interpretation Code [facility] Work Phone: [phone] Anion gap 4 molar conc 12 Invalid Interpretation Code [employer] Work Phone: [phone] AST enzyme act/vol 22 U/L Invalid Interpretation Code [facility] Work Phone: [phone] Bilirubin mass conc 0.8 mg/dL Invalid Interpretation Code [facility] Work Phone: [phone] Calcium mass conc 9.1 mg/dL Invalid Interpretation Code [facility] Work Phone: [phone] Chloride molar conc 100 mmol/L Invalid Interpretation Code [facility] Work Phone: [phone] Cholesterol in HDL mass conc 82 mg/dL Invalid Interpretation Code [facility] Work Phone: [phone] Cholesterol in LDL mass conc 64 mg/dL Invalid Interpretation Code [facility] Work Phone: [phone] Cholesterol in LDL/Cholesterol in HDL mass ratio 0.78 Invalid Interpretation Code [facility] Work Phone: [phone] Cholesterol mass conc 160 mg/dL Invalid Interpretation Code [facility] Work Phone: [phone] Cholesterol.total/Cho lesterol in HDL mass ratio 1.95 {ratio} Invalid Interpretation Code [facility] Work Phone: [phone] CO2 ppres (BldV) 30 mmol/L Invalid Interpretation Code [facility] Work Phone: [phone] Creatinine mass conc 0.66 mg/dL Low [facility] Work Phone: [phone] Glucose mass conc 90 mg/dL Invalid Interpretation Code [facility] Work Phone: [phone] Lipoprotein.pre-beta mass conc 14 mg/dL Invalid Interpretation Code [facility] Work Phone: [phone] Potassium molar conc 4.0 mmol/L Invalid Interpretation Code [facility] Work Phone: [phone] Protein mass conc 6.9 g/dL Invalid Interpretation Code [facility] Work Phone: [phone] Sodium molar conc 142 mmol/L Invalid Interpretation Code [facility] Work Phone: [phone] Thyrotropin Qn 0.158 u[iU]/mL [facility] Work Phone: [phone] Triglyceride mass conc 69 mg/dL Invalid Interpretation Code [facility] Work Phone: [phone] Urea nitrogen mass conc 20 mg/dL Invalid Interpretation Code [facility] Work Phone: [phone] Clinical Lists Update: [employer] 04-20-2015 Bilirubin.direct mass conc mg/dL Invalid Interpretation Code [facility] Work Phone: [phone] Office Visiton 01-04-2015 cardiac risk group B Invalid Interpretation Code [employer] Work Phone: [phone] General cardiovascular disease 10Y risk [#] Nasima.Una'Rafat 3 % Invalid Interpretation Code [employer] Work Phone: [phone] Clinical Lists Update: [employer] 10-08-2014 Erythrocyte distribution width Auto Ratio (RBC) 13.2 % Invalid Interpretation Code [employer] Work Phone: [phone] Hematocrit Auto Volume Fraction (Bld) 41.4 % Invalid Interpretation Code [facility] Work Phone: [phone] Hemoglobin mass conc (Bld) 12.9 g/dL Invalid Interpretation Code [facility] Work Phone: [phone] MCH Auto Entitic mass (RBC) 29.2 pg Invalid Interpretation Code [facility] Work Phone: [phone] MCHC Auto mass conc (RBC) 31.2 g/dL Invalid Interpretation Code [employer] Work Phone: [phone] MCV Auto Entitic volume (RBC) 93.7 fL Invalid Interpretation Code [facility] Work Phone: [phone] Platelet mean volume Jhonny-Harjit Entitic volume (Bld) 10.6 fL Invalid Interpretation Code [facility] Work Phone: [phone] Platelets Auto #/vol (Bld) 191 10*3/mm3 Invalid Interpretation Code [employer] Work Phone: [phone] RBC Auto #/vol (Bld) 4.42 10*6/uL Invalid Interpretation Code [employer] Work Phone: [phone] WBC Auto #/vol (Bld) 4.34 10*3/uL Invalid Interpretation Code [employer] Work Phone: [phone] Lab Report: LIVERon 10-07-19 14 ALK 77 U/L Normal 45-117 [employer] Work Phone: [phone] Office Visiton 10-02-2013 Protein mass conc no Invalid Interpretation Code [facility] Phone: [phone] Replaced Document: Estephanie Mcmullen CG Observationson 10-02-2013 EKG QRS axis -45 deg Invalid Interpretation Code [employer] Work Phone: [phone] Interpretation Sinus Bradycardia - frequent ectopic ventricular beat s # VECs = 2-Left axis -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 -Nonspecific ST depression -Nondiagnostic. ABNORMAL Invalid Interpretation Code [facility] Work Phone: [phone] P [place] 58 deg Invalid Interpretation Code [facility] Work Phone: [phone] ME Interval 186 ms Invalid Interpretation Code [facility] Work Phone: [phone] QRS Duration 118 ms Invalid Interpretation Code [facility] Work Phone: [phone] Interval new path ms Invalid Interpretation Code [facility] Work Phone: [phone] T [place] -1 deg Invalid Interpretation Code [facility] Work Phone: [phone] Culture, urine Bacteria identified Cx Nom (U) Mixed Gram Pos & Gram Neg Org [facility] Work Phone: Vital Signs Date Time Vital Sign Value Performing Clinician Facility 10-06-2024 16:48-0400 Body height 172.[address] José Miguel Frias MD Work Phone: [facility] 10-06-2024 16:48-0400 Body temperature 98.1 [degF] Dr. José Miguel Frias MD Work Phone: [phone])[phone] [place] [address] 10-06-2024 16:48-0400 Diastolic blood pressure 99 mm[Hg] Dr. José Miguel Frias MD Work Phone: [facility] 10-06-2024 16:48-0400 Heart rate 77 /min Dr. José Miguel Frias MD Work Phone: [facility] 10-06-2024 16:48-0400 Respiratory rate 19 /min Dr. José Miguel Frias MD Work Phone: 3(427)651-152891 [place] [address] 10-06-2024 16:48-0400 SaO2% (BldA) [Mass fraction] 98 % Dr. José Miguel Frias MD Work Phone: [facility] 10-06-2024 16:48-0400 Systolic blood pressure 172 mm[Hg] Dr. José Miguel Frias MD Work Phone: [phone])[phone] [place] [address] 02-25-2023 13:22-0400 Body temperature 98 [degF] Dr. José Miguel Frias Work Phone: 2(445)297-072762 [place] [address] 02-25-2023 13:22-0400 Diastolic blood pressure 69 mm[Hg] Dr. José Miguel Frias Work Phone: 9(049)169-913662 [place] [address] 02-25-2023 13:22-0400 Heart rate 76 /min Dr. José Miguel Frias Work Phone: 2(412)253-369662 [place] [address] 02-25-2023 13:22-0400 Respiratory rate 18 /min Dr. José Miguel Frias Work Phone: [phone])[phone] [place] [address] 02-25-2023 13:22-0400 SaO2% (BldA) [Mass fraction] 96 % Dr. José Miguel Frias Work Phone: 9([phone])885-079962 [place] [address] 02-25-2023 13:22-0400 Systolic blood pressure 116 mm[Hg] Dr. José Miguel Frias Work Phone: 9(988)921-542062 [place] [address] 02-24-2023 13:31-0400 Body height 172.[address] José Miguel Frias Work Phone: 2(061)045-164362 [place] [address] 02-24-2023 13:31-0400 Body weight 80.[address] José Miguel Frias Work Phone: 2(874)239-482462 [place] [address] 02-23-2023 23:37-0400 Body mass index (BMI) [Ratio] 26.9 kg/m2 Dr. José Miguel Frias Work Phone: 2(256)271-150162 [place] [address] 12-22-2022 15:09-0400 Body weight 78.02 kg José Miguel Frias MD Work Phone: [facility] 12-22-2022 15:09-0400 Diastolic blood pressure 84 mm[Hg] José Miguel Frias MD Work Phone: [facility] 12-22-2022 15:09-0400 Heart rate 62 /min José Miguel Frias MD Work Phone: [facility] 12-22-2022 15:09-0400 Respiratory rate 16 /min José Miguel Frias MD Work Phone: [facility] 12-22-2022 15:09-0400 Systolic blood pressure 122 mm[Hg] José Miguel Frias MD Work Phone: [facility] 10-31-2022 15:50-0400 Body weight 82.56 kg Nedra Cheema EAR[employer] SCIENCE LABORATORY TECHNICIAN.PROTOTYPE MODEL MAKER Work Phone: [facility] 10-31-2022 15:50-0400 Diastolic blood pressure 62 mm[Hg] Nedra Cheema EARTH SCIENCE LABORATORY TECHNICIAN.PROTOTYPE MODEL MAKER Work Phone: [facility] 10-31-2022 15:50-0400 Heart rate 72 /min Nedra Cheema EARTH SCIENCE LABORATORY TECHNICIAN.PROTOTYPE MODEL MAKER Work Phone: [facility] 10-31-2022 15:50-0400 Respiratory rate 16 /min Nedra Cheema EARTH SCIENCE LABORATORY TECHNICIAN.PROTOTYPE MODEL MAKER Work Phone: [facility] 10-31-2022 15:50-0400 Systolic blood pressure 132 mm[Hg] Nedra Cheema EARTH SCIENCE LABORATORY TECHNICIAN.PROTOTYPE MODEL MAKER Work Phone: [facility] 09-15-2022 16:33-0400 Body temperature 97.81 [degF] José Miguel Frias MD Work Phone: [facility] 09-15-2022 16:33-0400 Body weight 78.47 kg José Miguel Frias MD Work Phone: [facility] 09-15-2022 16:33-0400 Diastolic blood pressure 70 mm[Hg] José Miguel Frias MD Work Phone: [facility] 09-15-2022 16:33-0400 Heart rate 64 /min José Miguel Frias MD Work Phone: [facility] 09-15-2022 16:33-0400 Respiratory rate 14 /min José Miguel Frias MD Work Phone: [facility] 09-15-2022 16:33-0400 SaO2% (BldA) [Mass fraction] 99 % José Miguel Frias MD Work Phone: [facility] 09-15-2022 16:33-0400 Systolic blood pressure 132 mm[Hg] José Miguel Frias MD Work Phone: [facility] 09-04-2022 13:41-0400 Body weight 78.93 kg Mckenzie Older EARTH SCIENCE LABORATORY TECHNICIAN.ELEVATOR OPERATOR SERVICE Work Phone: [facility] 09-04-2022 13:41-0400 Diastolic blood pressure 68 mm[Hg] Mckenzie Older EARTH SCIENCE LABORATORY TECHNICIAN.ELEVATOR OPERATOR SERVICE Work Phone: [facility] 09-04-2022 13:41-0400 Heart rate 60 /min Mckenzie Older EARTH SCIENCE LABORATORY TECHNICIAN.ELEVATOR OPERATOR SERVICE Work Phone: [facility] 09-04-2022 13:41-0400 Respiratory rate 12 /min Mckenzie Older EARTH SCIENCE LABORATORY TECHNICIAN.ELEVATOR OPERATOR SERVICE Work Phone: [facility] 09-04-2022 13:41-0400 Systolic blood pressure 138 mm[Hg] Mckenzie Older EARTH SCIENCE LABORATORY TECHNICIAN.ELEVATOR OPERATOR SERVICE Work Phone: [facility] 08-03-2022 14:08-0400 Body weight 77.47 kg José Miguel Frias MD Work Phone: [facility] 08-03-2022 14:08-0400 Diastolic blood pressure 62 mm[Hg] José Miguel Frias MD Work Phone: [facility] 08-03-2022 14:08-0400 Heart rate 64 /min José Miguel Frias MD Work Phone: [facility] 08-03-2022 14:08-0400 Respiratory rate 12 /min José Miguel Frias MD Work Phone: [facility] 08-03-2022 14:08-0400 Systolic blood pressure 122 mm[Hg] José Miguel Frias MD Work Phone: [facility] 07-26-2022 13:01-0400 Body temperature 98.01 [degF] José Miguel Frias MD Work Phone: [facility] 07-26-2022 13:01-0400 Body weight 77.47 kg José Miguel Frias MD Work Phone: [facility] 07-26-2022 13:01-0400 Diastolic blood pressure 56 mm[Hg] José Miguel Frias MD Work Phone: [facility] 07-26-2022 13:01-0400 Heart rate 68 /min José Miguel Frias MD Work Phone: [facility] 07-26-2022 13:01-0400 Respiratory rate 12 /min José Miguel Frias MD Work Phone: [facility] 07-26-2022 13:010400 Systolic blood pressure 100 mm[Hg] José Miguel Frias MD Work Phone: [facility] 07-01-2022 11:07-0500 Body temperature 96.69 [degF] José Miguel Frias MD Work Phone: [facility] 07-01-2022 11:07-0500 Body weight 75.75 kg José Miguel Frias MD Work Phone: [facility] 07-01-2022 11:07-0500 Diastolic blood pressure 68 mm[Hg] José Miguel Frias MD Work Phone: [facility] 07-01-2022 11:07-0500 Heart rate 80 /min José Miguel Frias MD Work Phone: [facility] 07-01-2022 11:07-0500 Respiratory rate 18 /min José Miguel Frias MD Work Phone: [facility] 07-01-2022 11:07-0500 SaO2% (BldA) [Mass fraction] 96 % José Miguel Frias MD Work Phone: [facility] 07-01-2022 11:07-0500 Systolic blood pressure 118 mm[Hg] José Miguel Frias MD Work Phone: [facility] 06-14-2022 13:10-0500 Body height 165.1 cm José Miguel Frias MD Work Phone: [facility] 06-14-2022 13:10-0500 Body temperature 98.01 [degF] José Miguel Frias MD Work Phone: [facility] 06-14-2022 13:10-0500 Body weight 74.84 kg José Miguel Frias MD Work Phone: [facility] 06-14-2022 13:10-0500 Diastolic blood pressure 60 mm[Hg] José Miguel Frias MD Work Phone: [facility] 06-14-2022 13:10-0500 Heart rate 76 /min José Miguel Frias MD Work Phone: [facility] 06-14-2022 13:10-0500 Respiratory rate 12 /min José Miguel Frias MD Work Phone: [facility] 06-14-2022 13:10-0500 Systolic blood pressure 128 mm[Hg] José Miguel Frias MD Work Phone: [facility] 04-27-2022 08:16-0500 Diastolic blood pressure 78 mm[Hg] [facility] 04-27-2022 08:16-0500 Heart rate 78 /min [facility] 04-27-2022 08:16-0500 Respiratory rate 16 /min [facility] 04-27-2022 08:16-0500 SaO2% (BldA) [Mass fraction] 99 % [facility] 04-27-2022 08:16-0500 Systolic blood pressure 130 mm[Hg] [facility] 04-27-2022 04:13-0500 Body temperature 98.2 [degF] [facility] 04-26-2022 22:25-0500 Body height 172.72 cm [facility] 04-26-2022 22:25-0500 Body mass index (BMI) [Ratio] 22.8 kg/m2 [facility] 04-26-2022 22:25-0500 Body weight 68.2 kg [facility] 04-08-2022 20:09-0500 Body temperature 98.4 [degF] [facility] 04-08-2022 20:09-0500 Diastolic blood pressure 61 mm[Hg] [facility] 04-08-2022 20:09-0500 Heart rate 94 /min [facility] 04-08-2022 20:09-0500 Respiratory rate 16 /min [facility] 04-08-2022 20:09-0500 SaO2% (BldA) [Mass fraction] 99 % [facility] 04-08-2022 20:09-0500 Systolic blood pressure 134 mm[Hg] [facility] 04-08-2022 18:18-0500 Body height 172.72 cm [facility] Work Phone: 04-08-2022 18:18-0500 Body mass index (BMI) [Ratio] 20.5 kg/m2 [facility] 04-08-2022 18:18-0500 Body weight 61.23 kg [facility] 03-26-2022 08:39-0500 Body height 172.72 cm [facility] Work Phone: 03-26-2022 08:39-0500 Body mass index (BMI) [Ratio] 22.8 kg/m2 [facility] 03-26-2022 08:39-0500 Body temperature 97.1 [degF] [facility] 03-26-2022 08:39-0500 Body weight 68.03 kg [facility] 03-26-2022 08:39-0500 Diastolic blood pressure 120 mm[Hg] [facility] 03-26-2022 08:39-0500 Heart rate 140 /min [facility] 03-26-2022 08:39-0500 Respiratory rate 18 /min [facility] 03-26-2022 08:39-0500 SaO2% (BldA) [Mass fraction] 99 % [facility] 03-26-2022 08:39-0500 Systolic blood pressure 191 mm[Hg] [facility] 02-22-2017 15:09-0400 BMI (Body Mass Index) 27.37 kg/m2 [facility] [place] [employer] Work Phone: 02-22-2017 15:09-0400 BP Diastolic [...] Heart rate 423 ms [facility] Work Phone: Encounters Encounter Date Encounter Type Care Provider Facility Start: 11-28-2024 ambulatory José Miguel Aaron ty:[facility] Start: 11-20-2024 ambulatory José Miguel Aaron ty:[facility] Start: 10-10-2024 ambulatory José Miguel Aaron ty:[facility] Start: 10-10-[address] Emmanuel vázquez MD -[facility] Work Phone: Start: 10-06-2024 End: 10-06-2024 Emergency department patient visit Dr. José Miguel Frias MD Work Phone: -Emergency Department Work Phone: Start: 09-30-2024 End: 09-30-[address] José Miguel Frias MD Work Phone: [facility] Work Phone: Start: 09-30-2024 End: 09-30-[address] Emmanuel Park MD -[facility] [place] Work Phone: Start: 09-30-[address] Emmanuel vázquez MD -[facility] [place] Work Phone: Start: 09-30-2024 End: 09-30-2024 ambulatory Emmanuel VELASQUEZ Facility:[facility] Start: 08-21-2024 End: 08-21-[address] José Miguel Frias MD Work Phone: [facility] Work Phone: Start: 08-21-2024 End: 08-21-[address] Emmanuel Park MD -[facility] [place] Work Phone: Start: 08-21-2024 End: 08-21-2024 ambulatory Emmanuel VELASQUEZ Facility:[facility] Start: 04-23-2024 End: 04-24-2024 Refill José Miguel Frias MD Work Phone: Family Medicine [place] Comment on above: Refill Request request medicaiton n ot on current med list Start: 04-21-2024 ambulatory Emmanuel Park OLS Facil ity:[facility] Start: 04-16-2024 ambulatory Emmanuel VELASQUEZ Facil ity:[facility] Start: 04-11-2024 End: 04-11-2024 Emergency department patient visit Ellis Andtonja Facility:[facility] Start: 04-02-2024 End: 04-02-2024 ambulatory Emmanuel Park OLS Facility:[facility] Start: 03-19-2024 ambulatory Emmanuel Park OLS Facil ity:[facility] Start: 01-16-2024 End: 01-16-2024 ambulatory Emmanuel Park OLS Facility:[facility] Start: 12-19-2023 Telephone encounter José Miguel odell MD Work Phone: Internal Medicine [place] Comment on above: Patient Outreach Start: 12-14-2023 ambulatory Tammy Ellis [facility] [place] Start: 12-14-2023 Patient encounter procedure Tammy Ellis MA [facility] [place] Comment on above: Population Health Na vigation Outreach ([facility] Work[facility] - [place] [facility]) Start: 12-14-2023 End: 12-14-2023 ambulatory Emmanuel Vaughnins EVA Facility:[facility] Start: 10-09-2023 ambulatory Tammy Ellis MA [facility] [place] Start: 10-09-2023 Patient encounter procedure Tammy Ellis MA [facility] [place] Comment on above: Population Health Na vigation Outreach ([facility] CURRENT ROSTER workbench - AWV, Care gaps, HCC gap closure - [place] [facility]) Start: 08-30-2023 ambulatory Tammy Ellis MA [facility] [place] Start: 08-30-2023 Patient encounter procedure Tammy Ellis MA [facility] [place] Comment on above: Population Health Na vigation Outreach ([facility] CURRENT ROSTER workbench - AWV, Care gaps, HCC gap closure - [place] [facility]) Start: 05-29-2023 End: 05-29-2023 ambulatory JOSÉ MIGUEL FRIAS Facility:[facility] Start: 04-12-2023 Refill José Miguel beck MD Work Phone: Internal Medicine [place] Comment on above: Refill Request Start: 04-10-2023 Telephone encounter Nedra abdullahi EARTH SCIENCE LABORATORY TECHNICIAN.PROTOTYPE MODEL MAKER Work Phone: Internal Medicine [place] Comment on above: Orders Start: 03-26-2023 Telephone encounter José Miguel odell MD Work Phone: Internal Medicine [place] Comment on above: [facility] HH Update Start: 03-23-2023 Refill José Miguel beck MD Work Phone: Internal Medicine [place] Comment on above: Refill Request Start: 03-22-2023 Telephone encounter José Miguel odell MD Work Phone: Internal Medicine [place] Comment on above: Patient Update Start: 03-19-2023 Telephone encounter Nedra abdullahi EARTH SCIENCE LABORATORY TECHNICIAN.PROTOTYPE MODEL MAKER Work Phone: Internal Medicine [place] Comment on above: report on patient le gs Start: 03-13-2023 Telephone encounter José Miguel odell MD Work Phone: Internal Medicine [place] Comment on above: Release Of Medical R ecords Start: 03-09-2023 ambulatory José Miguel beck MD Work Phone: Internal Medicine [place] Comment on above: Edema Start: 03-09-2023 Telephone encounter José Miguel odell MD Work Phone: Internal [facility] [place] Comment on above: Medication Problem Start: 03-06-2023 Telephone encounter José Miguel odell MD Work Phone: Internal Medicine [place] Comment on above: [facility] PT POC medication allergy Start: 02-27-2023 Telephone encounter José Miguel odell MD Work Phone: Family Medicine [place] Comment on above: [facility] Plan Start: 02-24-2023 Non-patient / Non-visit Dr. Christine Frias Work Phone: [facility] Work Phone: Start: 02-23-2023 Non-patient / Non-visit Dr. Christine Frias Work Phone: [facility] Work Phone: Start: 02-23-2023 End: 02-25-2023 Evaluation and management of inpatient Dr. José Miguel Frias Work Phone: [facility]-Medical Surgical 3 Work Phone: Start: 02-23-2023 End: 02-25-[address] José Miguel Frias Work Phone: [facility] Work Phone: Start: 12-26-2022 Telephone encounter José Miguel odell MD Work Phone: Internal Medicine [place] Comment on above: Patient Update Start: 12-22-2022 End: 12-22-2022 Patient encounter procedure José Miguel Frias MD Work Phone: Internal Medicine [place] Comment on above: Dyspnea, unspecified type (Primary Dx); Venous (peripheral) insufficiency; Stasis dermatitis of both legs; Dementia with behavioral disturbance (HCC); History of panic attacks Start: 11-29-2022 Refill José Miguel beck MD Work Phone: Internal [facility] Comment on above: Refill Request Start: 11-22-2022 End: 11-22-2022 Patient encounter procedure Nestor Hughes Work Phone: Podiatry Comment on above: Traumatic avulsion o f nail plate of toe, initial encounter (Primary Dx); Onychomycosis; Venous insufficiency; Callus Start: 11-06-2022 Orders Only José Miguel beck MD Work Phone: Internal Medicine [place] Comment on above: Major depressive dis order with current active episode, unspecified depression episode severity, unspecified whether recurrent (Primary Dx); Dementia with behavioral disturbance (HCC) Start: 10-31-2022 End: 10-31-2022 Subsequent hospital visit by physician [facility] Work Phone: Radiology Comment on above: Injury of right grea t toe, initial encounter [S99.921A] Start: 10-31-2022 End: 10-31-2022 Office outpatient visit 15 minutes Nedra Cheema APRN.CNS Work Phone: Internal [facility] Comment on above: Avulsion of toenail, initial encounter (Primary Dx); Injury of right great toe, initial encounter; Cellulitis of great toe of right foot Start: 10-31-2022 Telephone encounter José Miguel odell MD Work Phone: Internal [facility] Comment on above: Patient Update Start: 10-18-2022 End: 10-18-2022 ambulatory [facility] Work Phone: Start: 10-18-2022 End: 10-18-2022 Departed Referred [facility] Start: 10-05-2022 ambulatory Bello (Pss) Rosales Martinez [facility] [place] Comment on above: Population Health Na vigation Outreach ([place] care gap) Start: 09-15-2022 End: 09-15-2022 Patient encounter procedure José Miguel Frias MD Work Phone: Internal [facility] Comment on above: Acute erythematous e ruption of skin (Primary Dx); Bilateral lower extremity edema; Venous insufficiency; Primary hypertension; DDD (degenerative disc disease), lumbar Start: 09-04-2022 End: 09-04-2022 Patient encounter procedure Mckenzie Ruggiero APRN.CNP Work Phone: [facility] Comment on above: Acute erythematous e ruption of skin (Primary Dx); Venous insufficiency; Bilateral lower extremity edema Start: 08-25-2022 End: 08-25-2022 [facility] Work Phone: Start: 08-25-2022 End: 08-25-2022 Departed Referred [facility] [place] Start: 08-10-2022 Telephone encounter José Miguel odell MD Work Phone: [facility] Comment on above: Medication Question Start: 08-03-2022 End: 08-03-2022 Patient encounter procedure José Miguel Frias MD Work Phone: Internal [facility] Comment on above: Dementia with behavi oral disturbance (HCC) (Primary Dx); Major depressive disorder with current active episode, unspecified depression episode severity, unspecified whether recurrent; Seborrheic dermatitis of scalp; Hypothyroidism, acquired; Hyperlipidemia LDL goal <130 Start: 08-01-2022 ambulatory Kaye MCKENNA ORGAN GRINDER Comment on above: Patient Update (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 ) Start: 08-01-2022 Telephone encounter José Miguel odell MD Work Phone: Family Medicine [place] Comment on above: Results Confusion Start: 07-31-2022 Refill José Miguel beck MD Work Phone: Internal [facility] Comment on above: Refill Request Start: 07-28-2022 End: 07-28-2022 [facility] Work Phone: Start: 07-28-2022 End: 07-28-2022 Departed Referred [facility] Start: 07-28-2022 Registered Referred [facility] Start: 07-26-2022 End: 07-26-2022 Patient encounter procedure José Miguel Frias MD Work Phone: Internal Medicine [place] Comment on above: Dementia with behavi oral disturbance (HCC) (Primary Dx); Major depressive disorder with current active episode, unspecified depression episode severity, unspecified whether recurrent; Venous (peripheral) insufficiency; Primary hypertension Start: 07-18-2022 End: 07-18-2022 ambulatory [facility] Work Phone: Start: 07-18-2022 End: 07-18-2022 Departed Referred [facility] Start: 07-12-2022 Telephone encounter José Miguel odell MD Work Phone: Internal Medicine [place] Comment on above: Patient Update Start: 07-07-2022 ambulatory José Miguel beck MD Work Phone: [facility] Comment on above: Allied Health Visit (Medication Adherence Outreach) Start: 07-01-2022 End: 07-01-2022 Patient encounter procedure José Miugel Frias MD Work Phone: Internal [facility] [place] [...] both ears Start: 05-17-2022 End: 05-17-2022 ambulatory [facility] Work Phone: Start: 05-17-2022 End: 05-17-2022 Departed Referred [facility] Thais Aguirre Start: 04-26-2022 End: 04-27-2022 Emergency department patient visit [facility] Start: 04-08-2022 End: 04-08-2022 Emergency department patient visit [facility] Start: 03-26-2022 End: 03-26-2022 Emergency department patient visit [facility] Start: 08-23-2021 Refill José Miguel beck MD Work Phone: Internal [facility] Comment on above: Prescription Refills Start: 08-18-2021 Refill Cecilio PRICE RN.ELEVATOR OPERATOR SERVICE, DNP Work Phone: [facility] Comment on above: Refill Request Start: 08-09-2021 ambulatory José Miguel beck MD Work Phone: Internal Medicine [facility] [place] Start: 07-24-2021 Refill Cecilio PRICE RN.[facility] Work Phone: [facility] Comment on above: Refill Request Procedures Date [...] foot complete minimum 3 views Nedra Cheema EARTH SCIENCE LABORATORY TECHNICIAN.PROTOTYPE MODEL MAKER Work Phone: Start: 04-26-2022 Plain chest X-ray [...] Author Start: 08-03-2025 DIABETES SCREEN DIABETES SCREEN [facility] Start: 08-03-2025 Diabetes Screening Diabetes Screenin g [facility] Start: 01-06-2024 Covid-19 Vaccine () Covid-19 Vaccine () [facility] Start: 01-06-2024 Covid-19 Vaccine ( season) Covid-19 Vaccine ( season) [facility] Start: 01-06-2024 Influenza vaccination [facility] Start: 12-12-2023 End: 12-12-2023 Patient encounter procedure 12/12/2023 3:00 PM EDT Office Visit [facility] [place] [address] [place] [address] Mckenzie Funk, EARTH SCIENCE LABORATORY TECHNICIAN.ELEVATOR OPERATOR SERVICE [address] [place] [address] Annual Medicare Wellness Internal [facility] [place] Comment on above: Annual Medicare Well ness Start: 09-05-2023 COVID-19 VACCINE (4 - Booster for Pfizer series) COVID-19 VACCINE (4 - Booster for Pfizer series) [facility] Comment on above: Postponed from 08/09 (Declined at this time) Start: 09-05-2023 COVID-19 VACCINE (4 - Pfizer series) COVID-19 VACCINE (4 - Pfizer series) [facility] Comment on above: Postponed from 08/09 (Declined at this time) Start: 09-05-2023 SHINGRIX VACCINE (2 of 3) LEMUS GRIX VACCINE (2 of 3) [facility] Comment on above: Postponed from 08/31 (Declined at this time) Start: 09-05-2023 Urine microalbumin profile [facility] Comment on above: Postponed from 05/21 (Declined at this time) Start: 05-07-2023 Advance Directive Discussion Advance Directive Discussion [facility] Start: 02-25-2023 Patient discharge [facility] Start: 02-24-2023 Referral to service [facility] Start: 02-23-2023 Following clinical pathway protocol [facility] Start: 02-23-2023 Ambulation without limitation [facility] Start: 02-23-2023 Assessment of risk o f venous thromboembolism [facility] Start: 02-23-2023 Insertion of cathete r into peripheral vein [facility] Start: 02-23-2023 Measuring intake and output [facility] Start: 02-23-2023 Providing care accor ding to standard [facility] Start: 02-23-2023 Referral to occupati onal therapist [facility] Start: 02-23-2023 Referral to service [facility] Start: 02-23-2023 [facility] Start: 02-23-2023 Admission procedure [facility] Start: 02-23-2023 End: 02-24-2023 [facility] Start: 02-23-2023 Urine culture Urine Culture [facility] Start: 02-23-2023 Patient referral to dietitian [facility] Start: 01-05-2023 Covid-19 Vaccine () Covid-19 Vaccine () [facility] Start: 01-05-2023 Influenza vaccination [facility] Start: 06-15-2022 End: 08-15-2022 CBC panel - Blood by Automated count CBC Lab Routine Primary hypertension Expected: 06/15/2022, Expires: 08/15/2022 [facility] Work Phone: Comment on above: Expected: 06/15/2022 , Expires: 08/15/2022 Start: 06-15-2022 End: 08-15-2022 Comprehensive metabolic 2000 panel - Serum or Plasma COMP METABOLIC PANEL Lab Routine Hyperlipidemia LDL goal <130 Expected: 06/15/2022, Expires: 08/15/2022 [facility] Work Phone: Comment on above: Expected: 06/15/2022 , Expires: 08/15/2022 Start: 06-15-2022 End: 08-15-2022 Lipid 1996 panel - Serum or Plasma LIPID PANEL BASIC Lab Routine Hyperlipidemia LDL goal <130 Expected: 06/15/2022, Expires: 08/15/2022 [facility] Work Phone: Comment on above: Expected: 06/15/2022 , Expires: 08/15/2022 Start: 06-15-2022 End: 08-15-2022 Thyrotropin [Units/volume] in Serum or Plasma TSH BLD Lab Routine Hypothyroidism, acquired Expected: 06/15/2022, Expires: 08/15/2022 [facility] Work Phone: Comment on above: Expected: 06/15/2022 , Expires: 08/15/2022 Start: 05-13-2022 DIABETES SCREEN DIABETES SCREEN [facility] Start: 05-07-2022 ADVANCE DIRECTIVE DISCUSSION ADVANCE DIRECTIVE DISCUSSION [facility] Start: 03-26-2022 [facility] Work Phone: Start: 01-05-2022 Influenza vaccination [facility] Start: 08-09-2021 End: 10-09-2021 CBC panel - Blood by Automated count CBC Lab Routine Medication management Expected: 08/09/2021, Expires: 10/09/2021 [facility] Work Phone: Comment on above: Expected: 08/09/2021 , Expires: 10/09/2021 Start: 08-09-2021 COVID-19 VACCINE (4 - Booster for Pfizer series) COVID-19 VACCINE (4 - Booster for Pfizer series) [facility] Start: 08-09-2021 End: 10-09-2021 SCHEDULE LAB TESTING SCHEDULE LAB TESTING Lab Routine Expected: 08/09/2021, Expires: 10/09/2021 [facility] Work Phone: Comment on above: Expected: 08/09/2021 , Expires: 10/09/2021 Start: 05-07-2021 ADVANCE DIRECTIVE DISCUSSION ADVANCE DIRECTIVE DISCUSSION [facility] Start: 01-05-2021 Influenza vaccination INFLUENZA (#1) [facility] Start: 12-29-2020 COVID-19 VACCINE (3 - Booster for Pfizer series) COVID-19 VACCINE (3 - Booster for Pfizer series) [facility] Start: 02-20-2018 End: 02-20-2018 Appointment [facility] [facility] Work Phone: Start: 02-22-2017 End: 02-22-2017 Follow Up Appt 1 year Follow Up Appt 1 year [facility] [facility] Work Phone: Start: 02-22-2017 End: 02-22-2017 Follow Up Appt Other Follow Up Appt Other [facility] [facility] Work Phone: Start: 02-22-2017 End: 02-22-2017 PFM PFM [facility] Work Phone: Start: 06-29-2016 End: 12-30-2015 *Hepatic Function Panel *Hepatic Function Panel [place] [facility] Work Phone: Start: 06-29-2016 [...] Lipid 1996 panel *Lipid Profile CC PCP [facility] [facility] Work Phone: Start: 05-21-2015 Urine microalbumin profile [facility] Start: 04-06-2015 End: 04-22-2015 *Hepatic Function Panel *Hepatic Function Panel [place] [facility] Work Phone: Start: 04-06-2015 End: 04-22-2015 Lipid 1996 panel *Lipid Profile CC PCP [facility] Work Phone: Start: 01-04-2015 End: 01-04-2015 Follow Up Appt 1 year Follow Up Appt 1 year [facility] [facility] Work Phone: Start: 01-04-2015 End: 01-04-2015 PFM PFM [facility] Work Phone: Start: 04-06-2014 End: 10-26-2014 *Hepatic Function Panel *Hepatic Function Panel [place] [facility] Work Phone: Start: 04-06-2014 [...] hour holter monitor 48 hour holter monitor [facility] Work Phone: Start: 2012 RSV Vaccine (1 - 1-d ose 75+ series) RSV Vaccine (1 - 1-dose 75+ series) [facility] Start: 05-16-2012 End: 05-16-2012 Ecg routine ecg w/least 12 lds w/i&r EKG (In office) [facility] Work Phone: Start: 05-16-2012 End: 10-02-2013 Follow Up Appt 1 year Follow Up Appt 1 year [place] [facility] Work Phone: Start: 05-16-2012 [...] 3) LEMUS GRIX VACCINE (2 of 3) [facility] Start: 1997 RSV Vaccine (1 - 1-d ose 60+ series) RSV Vaccine (1 - 1-dose 60+ series) [facility] Bacteria identified in Urine by Culture Urine Culture [facility] Work Phone: End: 12-23-2023 ECG COMPLETE ECG COMPLETE ECG Routine Dyspnea, unspecified type 1 Occurrences starting 12/22/2022 until 12/23/2023 [facility] Work Phone: Comment on above: 1 Occurrences starti ng 12/22/2022 until 12/23/2023 In-vitro immunologic test [facility] 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 [facility] Patient Education [facility] Work Phone: Patient referral [facility] Work Phone: End: 11-30-2023 XR FOOT GENERAL 3V AP/LAT/OBL RIGHT XR FOOT GENERAL 3V AP/LAT/OBL RIGHT Radiology Routine Injury of right great toe, initial encounter 1 Occurrences starting 10/31/2022 until 11/30/2023 [facility] Work Phone: Comment on above: 1 Occurrences starti ng 10/31/2022 until 11/30/2023 XR FOOT GENERAL 3V AP/LAT/OBL RIGHT XR FOOT GENERAL 3V AP/LAT/OBL RIGHT Radiology Routine Injury of right great toe, initial encounter 10/31/2022 4:35 PM EDT [facility] Work Phone: [facility] Immunizations Immunization Date Immunization Notes Care Provider [facility] 06-14-2021 Covid (Pfizer) Dr. José Miguel Frias Work Phone: [facility] 06-14-2021 influenza, high-dose , quadrivalent vaccine (FLUZONE HIGH DOSE QUADRIVALENT) José Miguel Frias MD Work Phone: [facility] Work Phone: 06-14-2021 influenza virus vacc ine, unspecified formulation José Miguel Frisa MD Work Phone: [facility] 07-29-2020 COVID-19 vaccine, ag e 12+ yr (CAD [employer] - PURPLE [facility]) Cecilio Swartz EARTH SCIENCE LABORATORY TECHNICIAN.ELEVATOR OPERATOR SERVICE, DNP Work Phone: [facility] 07-08-2020 COVID-19 vaccine, ag e 12+ yr (CAD [employer] - PURPLE TOP) Cecilio Swartz APRN.[facility] Work Phone: [facility] 01-15-2020 influenza, high-dose , quadrivalent vaccine (FLUZONE HIGH DOSE QUADRIVALENT) Cecilio Swartz APRN.[facility] Work Phone: [facility] 02-11-2019 Influenza, high dose seasonal Dr. José Miguel Frias MD Work Phone: [facility] 02-11-2019 influenza, high dose seasonal, preservative-free Cecilio Swartz APRN.[facility] Work Phone: [facility] 02-11-2018 Influenza, high dose seasonal Dr. José Miguel Frias MD Work Phone: [facility] 02-11-2018 influenza, high dose seasonal, preservative-free Cecilio Swartz APRN.[facility] Work Phone: [facility] 01-23-2017 Influenza, high dose seasonal Dr. José Miguel Frias MD Work Phone: [facility] 01-23-2017 influenza, high dose seasonal, preservative-free Cecilio Swartz APRN.[facility] Work Phone: [facility] 03-09-2016 Influenza, high dose seasonal Dr. José Miguel Frias MD Work Phone: [facility] 03-09-2016 influenza, high dose seasonal, preservative-free Cecilio Swartz APRN.[facility] Work Phone: [facility] 03-09-2016 pneumococcal conjuga te vaccine, 13 valent Cecilio Swartz APRN.[facility] Work Phone: [facility] 05-20-2015 tetanus and diphther ia toxoids, adsorbed, preservative free, for adult use (2 Lf of tetanus toxoid and 2 Lf of diphtheria toxoid) Dr. José Miguel Frias Work Phone: [facility] 05-20-2015 tetanus and diphther ia toxoids, adsorbed, preservative free, for adult use (5 Lf of tetanus toxoid and 2 Lf of diphtheria toxoid) Cecilio Swartz APRN.[facility] Work Phone: [facility] 02-15-2015 Influenza, high dose seasonal Dr. José Miguel Frias MD Work Phone: [facility] 02-15-2015 influenza, high dose seasonal, preservative-free Cecilio Swartz APRN.[facility] Work Phone: [facility] 02-12-2014 Influenza, high dose seasonal Dr. José Miguel Frias MD Work Phone: [facility] 02-12-2014 influenza, high dose seasonal, preservative-free Cecilio Swartz APRN.[facility] Work Phone: [facility] 03-18-2013 influenza virus vacc ine, unspecified formulation Cecilio Swartz APRN.[facility] Work Phone: [facility] 02-05-2012 influenza virus vacc ine, unspecified formulation Cecilio Swartz APRN.[facility] Work Phone: [facility] 03-07-2011 influenza virus vacc ine, unspecified formulation Cecilio Swartz APRN.[facility] Work Phone: [facility] 03-08-2010 influenza virus vacc ine, unspecified formulation Cecilio Swartz APRN.[facility] Work Phone: [facility] 07-06-2009 zoster vaccine, live Cecilio Swartz APRN.[facility] Work Phone: [facility] 05-25-2009 novel influenza-H1N1 -09, preservative-free, injectable José Miguel Frias MD Work Phone: [facility] Work Phone: 01-25-2009 influenza virus vacc ine, unspecified formulation Cecilio Swartz APRN.[facility] Work Phone: [facility] Work Phone: 03-19-2008 influenza virus vacc ine, unspecified formulation Cecilio Swartz APRN.[facility] Work Phone: [facility] Work Phone: 03-11-2007 influenza virus vacc ine, unspecified formulation Cecilio Swartz APRN.[facility], [facility] Work Phone: [facility] 01-24-2007 pneumococcal polysaccharide vaccine, 23 valent Cecilio Swartz APRN.[facility], [facility] Work Phone: [facility] 03-20-2006 influenza virus vacc ine, unspecified formulation Cecilio Swartz APRN.[facility], [facility] Work Phone: [facility] Work Phone: 03-13-2005 influenza virus vacc ine, whole virus Cecilio Swartz APRN.[facility], [facility] Work Phone: [facility] Payers Date Payer Category Payer Self-pay [id number] 2018 Unknown [facility]THE[facility] ANTHEM MEDIBLUE ACCESS [id number] 2018-Present [phone] [address] [place] [address] [facility] [id number] 2018 Unknown [id number] 2012 Medicare [id number] Medicare MEDICARE PART A B [id number] Unknown [id number] Unknown [id number] Unknown [id number] [id number] Unknown [id number] 2.16.840.1.547512.3.579.2.462 Unknown [id number] 2.16.840.1.927725.3.579.2.462 Unknown [id number] 2.16.840.1.401095.3.579.2.462 Unknown [id number] 2.16.840.1.861731.3.579.2.462 Unknown [id number] 2.16.840.1.668828.3.579.2.462 Unknown [id number] 2.16.840.1.172295.3.579.2.462 Unknown [id number] 2.16.840.1.226398.3.579.2.462 Unknown [id number] 2.16.840.1.044926.3.579.2.462 Unknown [id number] 2.16.840.1.311517.3.579.2.462 Unknown [id number] 2.16.840.1.352929.3.579.2.462 Unknown [id number] [id number] Social History Date Type Detail Facility Start: 06-14-2022 End: 04-11-2024 Tobacco smoking status NHIS Never smoked tobacco [facility] Start: 05-11-2021 End: 05-29-2023 Alcohol intake Current drinker of alcohol (finding) [facility] Start: 1935 Sex Assigned At Not on file [facility] Start: 03-26-2022 End: 02-23-2023 Tobacco smoking status MNIS Unknown if ever smoked [facility] Start: 1935 Sex Assigned At Female [facility] Start: 06-14-2022 Tobacco use and exposure Smokeless tobacco non-user [facility] Work Phone: Start: 09-08-2022 End: 11-22-2022 History of Social function [facility] Work Phone: Start: 09-08-2022 End: 11-22-2022 Tobacco use panel [facility] Work Phone: Adult Depression Screening Assessment 2 [facility] Work Phone: Medical Equipment Procedure Code Equipment Code Equipment Origin al Text Equipment Identifier Dates Plug Perfix Bard Medium Taper Polypropylene 1.55x1.3in Surgical - [id number] Start: 05-30-2016 Goals Date Patient Goal Desired Activity /State Personal health goal Personal health goal Functional Status Date Assessment Result Facility 02-25-2023 Functional status Chair;Bathroom Privileg e [facility] Work Phone: Mental Status Date Assessment Result Facility 02-25-2023 Cognitive function Appropriate;Cooperativ e [facility] Work Phone: Clinical Notes 08-01-2017 to 10-06-2024 Telephone Encounter - Lina Berry LPN - 04/24/2024 11:05 AM ESTTelephone Encounter - Lina Berry LPN - 04/24/2024 11:05 AM Tammy Espinosa MA - 12/14/2023 8:40 AM EDT Note Date & Type Note Facility 10-06-2024 Radiology Diagnostic study note [facility] Imaging Services [address] [place] [address] [id number] Brain/Head without Contrast MR#: [id number] Acct: [id number] Name: CHRISTY FOFANA Rep #: [id number] : 1935 F 89 From: Twyla Ferreira MD PCP: Dr. José Miguel Frias MD Status: P RE ER Study:Brain/Head without Contrast Date of Exa m: 10/06/24 Exam# [id number] Ordering Dr: Lc Lo MD PROCEDURE: BRAIN/HEAD [...] IMPRESSION: No acute intracranial abnormality. Reading Location: [id number] CC: Dr. Lc Lo MD; Dr. José Miguel Frias MD ~ Hydrometallurgical Engineer: Signed [facility] 04-24-2024 Telephone encount er Note PCP changed to in house Doctor. Lina Berry LPN [facility] 04-24-2024 Miscellaneous Notes Formattin g of [...] 23, 2024 4:08 PM [facility] Thais Aguirre [facility] is calling José Miguel Frias MD today to request a medication not on current med list: Disp Refills Start End hydrOXYzine pamoate (VISTARIL) 25 mg capsule 30 5 Patient has been identified by name and birthdate. Closing statement: Results or non-symptom based questions: Thank you for calling [facility], your call will be returned within the next business day. Niecy Avilez documented in this encounter [facility] 04-23-2024 Telephone encount er Note Patient's [...] under Prescriber care PCP Emmanuel Park DO [facility] 04-23-2024 Telephone encount er Note Prescription [...] Hernandez MA April 23, 2024 4:08 PM [facility] 04-23-2024 Telephone encount er Note Daughter states that Christy is patient of in house doctors Dr. Park. Disregard refill requests. [facility] 04-23-2024 Miscellaneous Notes Formattin g of [...] Yes NOTE: patient lives at assisted living [facility] The last office visit in the department: [...] 2024 2:23 PM documented in this encounter [facility] 04-23-2024 Telephone encount er Note Assisted Living [facility] is calling José Miguel Frias MD today to request a medication not on current med list: Disp Refills Start End hydrOXYzine pamoate (VISTARIL) 25 mg capsule 30 5 Patient has been identified by name and birthdate. Closing statement: Results or non-symptom based questions: Thank you for calling [facility], your call will be returned within the next business day. Niecy Avilez [facility] 04-23-2024 Telephone encount er Note Prescription Refill Information The patient has been identified by name and date of : Yes Caregiver verified no other encounters exist for this prescription request: Yes Caregiver confirmed with patient/requestor that no other refills are due, in the near future, with this provider at this time: Yes NOTE: [facility] The last office visit in the department: [...] Niecy Avilez April 23, 2024 2:23 PM [facility] 12-19-2023 Telephone encount er Note POPULATION HEALTH NAVIGATION OUTREACH Action/FYI Reason for Outreach Care Gap/HCC or Scheduling Wellness Visits Care Gaps due: Medicare Annual Wellness Visit Patient Contacted: Patient is currently at [place], she is seeing in-house Dr. Emmanuel Park Navigation Signature: Lina Berry LPN December 19, 2023 4:51 PM [facility] 12-19-2023 Miscellaneous Notes Formattin g of this note is different from the original. POPULATION HEALTH NAVIGATION OUTREACH Action/FYI Reason for Outreach Care Gap/HCC or Scheduling Wellness Visits Care Gaps due: Medicare Annual Wellness Visit Patient Contacted: Patient is currently at [place], she is seeing in-house Dr. Emmanuel Park Navigation Signature: Lina Berry LPN December 19, 2023 4:51 PM documented in this encounter [facility] 12-19-2023 Note HNO ID: [id number] Author: ODALIS BRIGGS MA Service: ? Author Type: Entry Level Programmer Type: Progress Notes Filed: 12/19/2023 08:49 Note Text: POPULATION HEALTH NAVIGATION OUTREACH Action/FYI Letter received and sent to be mailed. Navigation Signature: Odalis Briggs Population Health Navigator December 19, 2023 8:49 AM [facility] 12-14-2023 Note HNO ID: [id number] Author: TAMMY ELLIS MA Service: ? Author Type: Entry Level Programmer Type: Progress Notes Filed: 12/14/2023 11:14 Note Text: POPULATION HEALTH NAVIGATION OUTREACH Action/FYI Patient is on [facility] CURRENT ROSTER Workbench list for below [...] Ellis MA December 14, 2023 8:51 AM [facility] 12-14-2023 History of Presen t illness Narrative POPULATION HEALTH NAVIGATION OUTREACH Action/I Patient is on [facility] CURRENT ROSTER Workbench list for below [...] 2023 8:51 AM documented in this encounter [facility] 12-14-2023 Note Patient Outreach (TINA TNAV) CHRISTY FOFANA ([id number]) 1935 F Date Time Provider Department 12/14/23 TAMMY ELLIS During your visit today, we recorded the following information about you: Tammy Ellis MA 12/14/2023 11:14 AM Signed POPULATION HEALTH NAVIGATION OUTREACH Action/FYI Patient is on [facility] CURRENT ROSTER Workbench list for below [...] Date Reviewed: 05/29/2023 Reviewed by: Mckenzie Funk, CUATE.ELEVATOR OPERATOR SERVICE - Fully Assessed Reason for Visit: Population Health Navigation Outreach [3910] Cmt: Leo Cooper - [place] PCSA Prescriptions as of 12/19/2023 - furosemide [...] 03/04/2012 06/14/2022 Eosi (more content not included)... [facility] 10-09-2023 Note HNO ID: [id number] Author: TAMMY ELLIS MA Service: ? Author Type: Entry Level Programmer Type: Progress Notes Filed: 10/09/2023 08:53 Note Text: POPULATION HEALTH NAVIGATION OUTREACH Action/FYI Patient is on [facility] CURRENT ROSTER Workbench list for below [...] labs: Medicare Annual Wellness Visit 12/12/2023 in [facility] with MCKENZIE FUNK - Annual Medicare Wellness, Please address due care gaps and HCC gap closure HCC related Navigation Signature: Tammy Ellis MA October 09, 2023 7:16 AM [facility] 10-09-2023 History of Presen t illness Narrative POPULATION HEALTH NAVIGATION OUTREACH Action/FYI Patient is on [facility] CURRENT ROSTER Workbench list for below [...] labs: Medicare Annual Wellness Visit 12/12/2023 in [facility] with MCKENZIE FUNK - Annual Medicare Wellness, Please address due care gaps and HCC gap closure HCC related Navigation Signature: Tammy Ellis MA October 09, 2023 7:16 AM documented in this encounter [facility] 10-09-2023 Note Patient Outreach (NE TNAV) CHRISTY FOFANA ([id number]) 1935 F Date Time Provider Department 10/09/23 TAMMY ELLIS During your visit today, we recorded the following information about you: Tammy Ellis MA 10/09/2023 8:53 AM Signed POPULATION HEALTH NAVIGATION OUTREACH Action/FYI Patient is on [facility] CURRENT ROSTER Workbench list for below [...] labs: Medicare Annual Wellness Visit 12/12/2023 in [facility] with MCKENZIE FUNK - Annual Medicare [...] Date Reviewed: 05/29/2023 Reviewed by: Mckenzie Funk APRN.ELEVATOR OPERATOR SERVICE - Fully Assessed Reason for Visit: Population Health Navigation Outreach [3910] Cmt: Leo [facility] CURRENT ROSTER workbench - AWV, Care gaps, [facility] gap closure - [place] PCSA Prescriptions as of 12/19/2023 - furosemide [...] mention of hem* (more content not included)... [facility] 08-30-2023 Note HNO ID: [id number] Author: TAMMY ELLIS MA Service: ? Author Type: Entry Level Programmer Type: Progress Notes Filed: 08/30/2023 11:26 Note Text: POPULATION HEALTH NAVIGATION OUTREACH Action/FYI Patient is on [facility] CURRENT ROSTER Workbench list for below [...] Ellis MA August 30, 2023 7:28 AM [facility] 08-30-2023 History of Presen t illness Narrative POPULATION HEALTH NAVIGATION OUTREACH Action/FYI Patient is on [facility] CURRENT ROSTER Workbench list for below [...] 2023 7:28 AM documented in this encounter [facility] 08-30-2023 Note Patient Outreach (NE TNAV) CHRISTY FOFANA ([id number]) 1935 F Date Time Provider Department 08/30/23 TAMMY ELLIS NETRUBYV During your visit today, we recorded the following information about you: Tammy Ellis MA 08/30/2023 11:26 AM Signed POPULATION HEALTH NAVIGATION OUTREACH Action/FYI Patient is on [facility] CURRENT ROSTER Workbench list for below [...] Date Reviewed: 05/29/2023 Reviewed by: Mckenzie Funk, EARTH SCIENCE LABORATORY TECHNICIAN.ELEVATOR OPERATOR SERVICE - Fully Assessed Reason for Visit: Population Health Navigation Outreach [3910] Cmt: Leo [facility] CURRENT ROSTER workbench - AWV, Care gaps, HCC gap closure - [place] PCSA Prescriptions as of 08/30/2023 - furosemide [...] lower limb [L03.116] (more content not included)... [facility] 05-29-2023 Note HNO ID: [id number] Author: MCKENZIE FUNK APRN.ELEVATOR OPERATOR SERVICE Service: ? Author Type: Nurse Practitioner Type: [...] Pulse 91 T (more content not included)... [facility] 04-12-2023 Miscellaneous Notes Formattin g of this note might be different from the original. Fax from [facility] for refills.asking for refill for asa 81 mg daily and multivitamin daily documented in this encounter [facility] 04-10-2023 Miscellaneous Notes Formattin g of this note might be different from the original. Form has been faxed back Fax request for refill of spironolactone received from long-term received. Patient had been placed on spironolactone diuretic for lower extremity swelling previously. Given refill for 1 additional month. Can reassess for ongoing need at upcoming visit with PCP April 19, 2023. documented in this encounter [facility] 03-26-2023 Miscellaneous Notes Formattin g of this note might be different from the original. Noted. Kristen [facility] HH Nurse calling. States they received [...] Pt lives in memory care unit at [facility] and the nurses there have been educated to watch for s/sx of cellulitis. Pt has dementia and can be noncompliant with leg wraps and elevation. Breanne Boggs RN documented in this encounter [facility] 03-23-2023 Miscellaneous Notes Formattin g of this note might be different from the original. Fax from pharmacy asking for refill. documented in this encounter [facility] 03-22-2023 Miscellaneous Notes Formattin g of this note might be different from the original. Spoke with JARVIS Arnold @ [facility]. Given message from provider's office. He verbalizes understanding. Rosa M Londono RN [place] JARVIS Arnold @ [facility] calling with update. PT will see patient once next week for re-evaluation. Clayton is asking for order for nursing evaluation/treat to monitor patient's cellulitis. Please call him @ [phone] with verbal okay. Rosa M Londono, RN documented in this encounter [facility] 03-22-2023 Miscellaneous Notes Formattin g of this note might be different from the original. Maria Luisa, nurse At [place] returning call. Message below reviewed with Maria [...] Sunday. Please advise documented in this encounter [facility] 03-13-2023 Miscellaneous Notes Formattin g of this note might be different from the original. Delfina Aragon with [facility] calls to request a copy of most recent OV note be faxed to them. Faxed to [phone] per request. Ivana Foster RN documented in this encounter [facility] 03-12-2023 Miscellaneous Notes Formattin g of this note might be different from the original. Spoke to Steph/pharmacist at [facility] pharmacy, given a verbal for 28 tablets. Lina Berry LPN yes, resent Pharmacist at [facility] pharmacy reports Shweta Sneed, send Rx for keflex 500 mg take 1 capsule by mouth 4 times daily for 7 days, with quantity #14 instead of #28. Asking if she can change quantity to #28. Please phone pharmacist with verbal: [phone] documented in this encounter [facility] 03-09-2023 Miscellaneous Notes Formattin g of this note is different from the original. Reason for Disposition [1] Red area or streak [2] large (> 2 in. or 5 cm) Protocols used: Leg Swelling and [id number]-[id number]-SU Instructed nurse to send pt to the [...] : N/A Protocols used: Leg Swelling and Nlwpp-[id number]-MY documented in this encounter [facility] 03-07-2023 Miscellaneous Notes Formattin g of this note might be different from the original. Delfina-[facility] called and is notified of providers message and instructions. She voices understanding and reports she will call the Pt and notify her. Elsy Rosales RN Yes, allergy noted. Yes continue simvastatin. Medications reconciled with discharge summary. Schedule hospital follow up appointment. Delfina with [facility] calls to see if pcp is aware that pt is allergic to Lipitor and taking simvastatin. Delfina needs verbal from pcp that he is aware and to continue or not continue simvastatin. Sarina Gutierrez LPN documented in this encounter [facility] 03-06-2023 Miscellaneous Notes Formattin g of this note might be different from the original. Noted. Lewis PT calling from [facility] to report plan of care for patient and PT will visit patient 2 times a week for three weeks. PT will work with patient on functional mobility. No call back necessary unless provider has questions. Ivana Foster RN documented in this encounter [facility] 02-27-2023 Miscellaneous Notes Formattin g of this note might be different from the original. Left detailed vm on identified vm with provider's message below. Okay for orders below, PCP will follow Mckenzie Ruggiero APRN.ELEVATOR OPERATOR SERVICE Minerva from [facility] HH states pt was d/c'd over the weekend & they received notification today. Minerva is hoping to see pt tomorrow. Asking for OK for delay of start of care? 2. Asking if provider will follow? Pt hosp for SUKHI & history of dementia. Pt at [place]. Karime Garcia LPN documented in this encounter [facility] 02-25-2023 Discharge summary Note Date/Time February 25, 2023 12:39pm [facility] Medical Records Department [address] [place] [address] Instructions for Home/Discharge Instructions 02/25/23 1236 MR#: [id number] Acct: [id number] Name: CHRISTY FOFANA Rep #:[id number] : [...] Dr. José Miguel Frias MD ~ Signed [facility] Work Phone: 1(153) 342-680910-21-2023 Progress note Author Will Bah [facility] February 24, 2023 3:14pm Note Date/Time February 24, 2023 3 :14pm [facility] Medical Records Department [address] [place] [address] [place] [address] Progress Note - Hospitalist 02/24/23 1502 MR#: [id number] Acct: [id number] Name: CHRISTY FOFANA Rep #:[id number] : 1935 87 From: Will tyler DO PCP: Dr. José Miguel Frias MD Status:A DM CHARLI Location: MS3 DJ350-2 Reason for Visit Reason for Visit: Diagnoses [...] (Auto) 69.0, Lymph % (Auto) 18.1 L, Dixie % (Auto) 9.6, Eos % (Auto) 2.5, [...] Clarity Clear, Urine pH 5.0, Ur Specific [place]inton 1.015, Urine Protein Negative, Urine Glucose (UA) [...] hypertension, hypothyroidism and depression who presented to [facility] ED on 02/23/2023 after a fall. 1. Fall, debility Patient resides in memory care unit as noted below. Accompanied by son and evhazill-cf-kow on admission. Had reportedly fallen 3 times [...] Resides in the memory care unit at [facility]. PT/OT/case management following as above, okay [...] 35 minutes. Charges/Coding Visit Charges Inpatient E&M: 61915 Subs Hosp L2 02/24/23 4424 <Electronically signed by Will Bah DO> Cosigner Signature (if applicable): CC: ~ Signed [facility] Work Phone: 1(978) 996-352410-21-2023 History and physical note Author Jhonathan Londono [facility] February 24, 2023 4:36am Note Date/Time February 23, 2023 9 :13pm [facility] Medical Records Department [address] [place] [address] H&P Exam - Hospitalist 02/23/232112 MR#: [id number] Acct: [id number] Name: CHRISTY FOFANA Rep #:[id number] : 1935 87 From: Jhonathan Heart PCP: Dr. José Miguel Frias MD Status:A DM CHARLI Location: [address] HPI - General General Date of Admission: 02/23/23 Date of Service: 02/23/23 Chief Complaint: Recurrent fall, generalized weakness and lower back pain HPI Narrative CHRISTY FOFANA, is a 87 F with multiple comorbidities brought to ED by EMS from assisted living [facility]. Patient is accompanied by her daughter [...] She recently had influenza and pneumonia shot. [facility] Medical History Anxiety Atrial fibrillation [...] her daughter near the bedside who is dental financial coordinator and her son-in-law. Recently she has decreased [...] (Auto) 69.0, Lymph % (Auto) 18.1 L, Dixie % (Auto) 9.6, Eos % (Auto) 2.5, [...] Clarity Clear, Urine pH 5.0, Ur Specific Vinton 1.015, Urine Protein Negative, Urine Glucose (UA) [...] Reading Location ID and State: 994 / [employer] , Service support , Cervical Spine CT 02/23/23 18:08 IMPRESSION: No acute fracture or subluxation. Electronically Signed: Roger Nicolas MD at 19:59 EDT , Chest X-Ray 02/23/23 19:00 IMPRESSION: Normal x-ray examination of the chest. Electronically Signed: Roger Nicolas MD at 19:30 EDT Reading Location ID and State: 994 / [employer] , Service support , Assessment & [...] daughter near the bedside is power of tax associate attorney for health. After discussion of benefits/risks [...] per the daughter Total time spent in xptb-rl-lxda encounter in discussion of advanced directive 17 [...] (Auto) 69.0, Lymph % (Auto) 18.1 L, Dixie % (Auto) 9.6, Eos % (Auto) 2.5, [...] Clarity Clear, Urine pH 5.0, Ur Specific Vinton 1.015, Urine Protein Negative, Urine Glucose (UA) [...] Dr. José Miguel Frias MD ~* Signed [facility] Work Phone: 1(143) 700-359210-21-2023 Discharge summary Author De Quiroz [facility] February 23, 2023 10:22pm Note Date/Time February 23, 2023 6 :08pm [facility] Medical Records Department [address] [place] [address] Emergency Department Summary 02/23/23 MR#: [id number] Acct: [id number] Name: CHRISTY FOFANA Rep #:[id number] : 1935 87 From: De Quiroz MD PCP: Dr. José Miguel Frias MD Status:A DM CHARLI Location: MS3 EV692-3 HPI HPI - Fall History of Present Illness Chief Complaint: Fall Informant: family Narrative Narrative: History is from daughter and I reviewed records that came in with the patient. Patient only gives simple yes and knows at times. She presents after multiple falls. This patient does have some dementia. She is at a memory care unit at [place]. She evidently walks with a cane normally. [...] the daughter is not sure of this. [facility] Medical History (Updated 02/23/23 @ [...] (Auto) 69.0 Lymph % (Auto) 18.1 L Dixie % (Auto) 9.6 Eos % (Auto) 2.5 [...] Clarity Clear Urine pH 5.0 Ur Specific Vinton 1.015 Urine Protein Negative Urine Glucose (UA) [...] Reading Location ID and State: 994 / [employer] , Service support , Pelvis X-Ray 02/23/23 18:04 IMPRESSION: Normal x-ray examination of the pelvis. Electronically Signed: Roger Nicolas MD at 19:31 EDT Reading Location ID and State: 994 / [employer] , Service support , Cervical Spine CT 02/23/23 18:08 IMPRESSION: No acute fracture or subluxation. Electronically Signed: Roger Nicolas MD at 19:59 EDT Reading Location ID and State: 994 / [employer] , Service support , Chest X-Ray 02/23/23 19:00 IMPRESSION: Normal x-ray examination of the chest. Electronically Signed: Roger Nicolas MD at 19:30 EDT Reading Location ID and State: [id number] / [employer] Tel , Service support , EKG Initial [...] sign of acute ST elevation or depression. ME interval is a little bit long. QRS duration is normal and QTc is just slightly long. Management Discussion w/another healthcare provider: Hospitalist Discharge Plan Triage Chief Complaint: Fall ED Provider: De Quiroz Dx/Rx/DC Orders Clinical Impression: Multiple falls, Declining functional status, Dehydration Primary Care Provider: José Miguel Frias Disposition Disposition: Acute Care Hospital [facility] What to do if you have Problems For any increased pain, shortness of breath, bleeding, nausea or vomiting, chest pain, or any unexpected problems, contact your Primary Care Provider. Call [facility] ([phone]) or report to the closest Emergency Room. Call 911 if necessary. 02/23/232221 <Electronically signed by De Quiroz MD> Cosigner Signature (if applicable): CC: Dr. José Miguel Frias MD ~ Signed [facility] Work Phone: [phone]) 431-491908-23-2023 Miscellaneous Notes* Telephone Encounter - Mel Vaca LPN - 12/27/2022 3:20 PM EDT Patient daughter Anya calling back to check status of note. Went over notes below from Dr Frias with understanding. Daughter is going to call [place] to check. * Telephone Encounter - José [...] hasn't been coming out to meals at [facility] because legs are painful so shedidn't eat yesterday or so far today. Patient is tolerating fluids if given. Anya asking if provider would be willing to order an antibiotic such as Keflex for bilateral lower legs and if so asking that it be sent to [facility]. Anya requests call back at [phone]. Anya reports Latesha was going to fax office as well but wanted to monitor legs for a couple ofday. Please review and advise, Ivana Foster RN documented in this encounterDunlap Memorial Hospital08-18-2023 History of Present illness Narrative* José Miguel Frias MD - 12/22/2022 3:54 PM EDT This note was created using ComHearriter. Subjective Patient presents with: Recheck Christy Fofana [...] José Miguel Frias MD documented in this encounterDunlap Memorial Hospital07-26-2023 Miscellaneous Notes* Telephone Encounter - Christy Yin LPN - 11/29/2022 4:01 PM EDT Per fax from pharmacy refills needed. Last seen [facility] 10/31/22. Next appt is 12/22/22 with pcp. documented in this encounterDunlap Memorial Hospital07-19-2023 History of Present illness Narrative* Nestor [...] these XR myself: no acute fracture ASSESSMENT: (S98.921A) Traumatic avulsion of nail plate of toe, [...] prn Nestor Hughes DPM Podiatry [address] [facility] [id number] Dept: [phone] Dept * Elsy Clifton RN - 11/22/2022 [...] bilateral feet are long. Patient is from [place] and per family they are supposed to trim her nails,but they don't. documented in this encounterDunlap Memorial Hospital06-27-2023 Miscellaneous Notes* Telephone Encounter - José Miguel Frias MD - 10/31/2022 6:17 PM EDT Patient seen by [facility]. * Telephone Encounter - Cornelia Lane RN - 10/31/2022 1:31 PM EDT Patient's daughter call upset. Patient's bilateral feet have been more swollen the last couple of days. Patient has had issues walking because feet are so painful. One of patient's big toes is black and blue. Patient had asked long-term staff to look at it last night [...] assessed. 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 [facility] Work Phone: [phone] 890-872406-27-2023 Instructions* Patient Instructions* Nedra Cheema APRN.CNS - [...] ordered. Take with food documented in this encounterDunlap Memorial Hospital06-27-2023 History of Present illness Narrative* Nedra [...] Notes nailcare is to be done a [place] but appears may not be. Review of [...] Level: 3 - Low documented in this encounterDunlap Memorial Hospital06-01-2023 History of Present illness Narrative* Bello [...] Gap or Scheduling/Wellness visits Payer: Payor: [email or web address] / Plan: ANTHEM MEDIBLUE ACCESS / Product Type: PPO / Care Gap Reviewed:: Annual Wellness visit Follow-up appointment Reminder: Reminder note to check Health Maintenance for items below Health Maintenance items due: ADVANCE DIRECTIVE DISCUSSION Never done Navigation Signature: Bello Caba October 05, 2022 10:49 AM documented in this encounterDunlap Memorial Hospital05-12-2023 History of Present illness Narrative* José Miguel Frias MD - 09/15/2022 4:53 PM EDT This note was created using Mob.ly. Subjective Christy Fofana is a 87 year old female was here with her daughter for follow up of cellulitis of both legs. Erythema and swelling were better. She finished cephalexin. TAC was being applied. Compression stockings prescription was printed, but there was a message that this needed to be sent to the [facility] pharmacy. Prescription was also needed for Tylenol standing order for chronic back pain just ordered via fax. F She was now seen at the [facility] by a mental health provider group, and [...] José Miguel Frias MD documented in this encounterDunlap Memorial Hospital05-01-2023 History of Present illness Narrative* Mckenzie Older, EARTH SCIENCE LABORATORY TECHNICIAN.ELEVATOR OPERATOR SERVICE - 09/04/2022 1:54 PM EDT CC: Patient [...] occur. Patient agreeable to treatment plan. Mckenzie Rgugiero APRN.CNP documented in this encounterDunlap Memorial Hospital04-11-2023 Miscellaneous Notes* Telephone Encounter - José [...] settle down. Please advise documented in this encounterDunlap Memorial Hospital03-30-2023 Instructions* Patient Instructions* José Miguel Frias MD - 08/03/2022 2:50 PM EDT FASTING LABS TODAY IN OUR LAB. documented in this encounterDunlap Memorial Hospital03-30-2023 History of Present illness Narrative* José Miguel Frias MD - 08/03/2022 2:44 PM EDT This note was created using Mob.ly. Subjective Christy Fofana is a 87 year [...] that patient will be staying here in [place]. Fasting labs were not drawn at the [facility] is fasting today and will have these done here today. José Miguel Frias MD documented in this encounterDunlap Memorial Hospital03-29-2023 Miscellaneous Notes* Telephone Encounter - Christy Yin SOL - 08/02/2022 4:45 PM EDT THIS ENCOUNTER WAS PRINTED AND FAXED ALTHOUGH NORMALLY THE WRITE THE ORDER AND MAIL IT TO THE PROVIDER. * Telephone Encounter - Ivana Foster RN - 08/02/2022 4:26 PM EDT Randi with [facility] calls to say they need a signed order from provider to discontinue Zoloft. Requesting it be faxed to [phone] today. Ivana Foster RN * Telephone Encounter - Christy Yin LPN - 08/02/2022 10:56 AM EDT This info was relayed to [facility]. Updated admission forms for new facility in [place]. Info called to Anya. She would like [...] like to have an answer today. The long-term told her they can not hold the doctor's medication Zoloft with out an order to stop it . Please review and advise daughter and [place]. Daughter feels what's is going on is because of the Zoloft. It is the only thing thatis new. Rash per daughter was severe along with what she was doing. Sandhya Payne LPN * Telephone Encounter - Sarina Gutierrez LPN - 08/01/2022 4:51 PM EDT Pt's daughter calls to report she saw pt Sun 07/30 at [place] and pt was extremely agitated but otherwise ok. Daughter reports today pt is very confused stating she does not live at [place]. Daughter reports pt is hallucinating saying she [...] back. Sarina Gutierrez LPN documented in this encounterDunlap Memorial Hospital03-29-2023 Miscellaneous Notes* Telephone Encounter - Christy Yin LPN - 08/02/2022 10:19 AM EDT Pcp completed admission forms from facility in [place]. They will be in medical records for shredder picker. * Telephone Encounter - Mikal Elliott Ma - 08/01/2022 4:32 PM EDT Sarina Gutierrez LPN KL 4:06 PM Note Lucinda nurse with [facility] returns call for results from tb lab and Covid test. Cory reportssomeone called them earlier today asking for results from 's office. Do not see TE for this. Cory reports tb lab is still in process at [facility]. Cory was advised it could be a [...] all in agreement to transfer pt to [facility]. Charo Rich know when completed she will [...] to come to a consensus. Forms for [place] partly completed, but I realized screening for infectious disease needed. Please have [facility] draw blood TB test and Covid PCR [...] to give paperwork regarding the move to [place] to her. Stating that sister is not aware of move. Carly indicates she and her brother Joel have the POA. She can be called at [phone] at Noon if possible. States that we [...] team ok to continue corresponding with patients dental financial coordinator/emergencycontact (Lovely) until we have documentation otherwise. 07/26/22: Called Lovely to ask about medical POA and she stated it was herself and Joel. She didn't have the paperwork, Joel did. I informed her we are receiving contradicting information and we needed someone to provide us actual documentation. We also have paperwork for an admission to a [facility]. Lovely was unaware of this paperwork. She [...] Sandy) are wanting to move pt to [facility]. This move will happen in the beginning of August. They are asking that this not be mentioned to Daughter Joan they brings her to the appt. They still want the appt 07/26/22. Please review admission forms. When completed call Sandy back and they can decide how they want to get the paperwork. They are coming to [place] at the end of this move to [...] patient contact not to be informed? Consult Consumer Science Teacher. * Telephone Encounter - Eliza Adame Pss - 07/12/2022 8:24 AM EST Daughter from [place] sending paperwork and POA forms to Dr. Frias to fill out. Family is moving patient to [place]. Family asked not to mention this to daughter Hammad they haven't informed her of the move. documented in this encounterDunlap Memorial Hospital03-28-2023 Miscellaneous Notes* Telephone Encounter - Kaye Leon RN - 08/01/2022 5:38 PM EDT Cory HORTON calling for Dr. José Miguel Frias. Cory has concerns about possible medication side effects including hallucinations. Conferenced Cory Pereyra for affiliate line paging. [phone] option #1 documented in this encounterDunlap Memorial Hospital03-28-2023 Miscellaneous Notes* Telephone Encounter - Mikal Elliott Ma - 08/01/2022 4:33 PM EDT See phone note dated 07/13/2031. Closing this encounter. * Telephone Encounter - Sarina Gutierrez LPN - 08/01/2022 4:03 PM EDT Lucinda nurse with [place] returns call for results from tb lab and Covid test. Cory reportsajaymeone called them earlier today asking for results from 's office. Do not see TE for this. Cory reports tb lab is still in process at [facility]. Cory was advised it could be a couple ofdays. Cory reports Covid PCR was not done so he did a Covid rapid test and it was neg. Sarina Gutierrez LPN documented in this encounterDunlap Memorial Hospital03-27-2023 Miscellaneous Notes* Telephone Encounter - Breanne [...] daily. Breanne Boggs RN documented in this encounterDunlap Memorial Hospital03-22-2023 History of Present illness Narrative* José Miguel Frias MD - 07/26/2022 1:10 PM EDT This note was created using ComHearriter. Subjective Patient presents with: 6 week follow-up Forms/letter: Possible move to other LTCF in [place] Christy Fofana is a 87 year old [...] of state children to move her to [place]. Patient and her daughter was not aware [...] José Miguel Frias MD documented in this encounterDunlap Memorial Hospital03-03-2023 History of Present illness Narrative* Elsy Bedolla (Field Return Repairer) - 07/07/2022 8:07 AM EST Christy Fofana is identified through a medication adherence outreach initiative based on pharmacy claims data from [employer] (insurer) for MACIEJ medication(s) and Statin medication(s). [...] facility per call to pharmacy Elsy Bedolla (Field Return Repairer) documented in this encounterDunlap Memorial Hospital02-27-2023 Miscellaneous Notes* Telephone Encounter - Elsy Rosales RN - 07/03/2022 11:39 AM EST Pt and daughter were I to see provider on 07/01/22. She was asking when provider changed patch does back to the 4.6 mg. I let her know that was on 06/28/22. She said she is going to have to go talk with the long-term to see if she was ever given [...] not let her out. Pt is in [facility]. Pt was sure that her was [...] advise. Sarina Gutierrez LPN documented in this encounterDunlap Memorial Hospital02-25-2023 History of Present illness Narrative* José Miguel Frias MD - 07/01/2022 11:06 AM EST This note was created using NoteWriter. Subjective Christy Fofana is a 87 year old female was here with her daughter. Concern was sinus congestion, and chest congestion for several days. She was supposedly tested at the [facility] for Covid and was negative. She seemed to be dyspneic at times. No fever was noted. There was a message that she had increased confusion, and this was attributed to the increased doseof rivastigmine. Daughter found out that she may not have been receiving the patch, and that the higher dose may not have been initiated yet. Daughter had to shredder picker the ear drops from Dr. Mims as [facility] did not fill the prescription. Patienthad a [...] José Miguel Frias MD documented in this encounterDunlap Memorial Hospital02-08-2023 History of Present illness Narrative* José Miguel Frias MD - 06/14/2022 1:19 PM EST This note was created using NoteWriter. Subjective Patient presents with: Establish Care: From Dr. Morales Rob Christy Fofana was here with her daughter. She just lost her and was feeling somewhat down.She was admitted at [facility] in [place] last month for acute mental status change, confusion, paranoid delusion. She was diagnosed with dementia, and started on rivastigmine patch and quetiapine.She was discharged to [facility], but attending/PCP had not adjusted the [...] José Miguel Frias MD documented in this encounterDunlap Memorial Hospital04-19-2022 Miscellaneous Notes* Telephone Encounter - Christy [...] possible. Farhana Payne Pss documented in this encounterDunlap Memorial Hospital07-01-2019 History of Past illness Narrative* Problem [...] of this encounter (statuses as of 06/14/2022) [facility] Narrative* Problem [...] of this encounter (statuses as of 07/02/2022) [facility] of [facility] illness Narrative* Problem [...] of this encounter (statuses as of 07/03/2022) [facility] of [facility] illness Narrative* Problem [...] of this encounter (statuses as of 07/07/2022) [facility] of [facility] illness Narrative* Problem [...] of this encounter (statuses as of 07/26/2022) [facility] of [facility] Narrative* Problem [...] of this encounter (statuses as of 07/31/2022) [facility] of [facility] Narrative* Problem [...] of this encounter (statuses as of 08/01/2022) [facility] of [facility] illness Narrative* Problem [...] of this encounter (statuses as of 08/02/2022) [facility] of [facility] illness Narrative* Problem [...] of this encounter (statuses as of 08/02/2022) [facility] of [facility] illness Narrative* Problem [...] of this encounter (statuses as of 08/03/2022) [facility] Narrative* Problem [...] of this encounter (statuses as of 08/03/2022) [facility] of [facility] illness Narrative* Problem [...] of this encounter (statuses as of 08/15/2022) [facility] Narrative* Problem [...] of this encounter (statuses as of 09/05/2022) [facility] of [facility] Narrative* Problem [...] of this encounter (statuses as of 09/16/2022) [facility] Narrative* Problem [...] of this encounter (statuses as of 10/05/2022) [facility] Narrative* Problem [...] of this encounter (statuses as of 11/01/2022) [facility] Narrative* Problem [...] of this encounter (statuses as of 11/01/2022) [facility] Narrative* Problem [...] of this encounter (statuses as of 11/07/2022) [facility] Narrative* Problem [...] of this encounter (statuses as of 11/22/2022) [facility] Narrative* Problem [...] of this encounter (statuses as of 11/30/2022) [facility] Narrative* Problem [...] of this encounter (statuses as of 12/25/2022) [facility] Narrative* Problem [...] of this encounter (statuses as of 12/27/2022) [facility] Narrative* Problem [...] of this encounter (statuses as of 02/27/2023) [facility] Narrative* Problem [...] of this encounter (statuses as of 03/06/2023) [facility] Narrative* Problem [...] of this encounter (statuses as of 03/10/2023) [facility] Narrative* Problem [...] of this encounter (statuses as of 03/13/2023) [facility] Narrative* Problem [...] of this encounter (statuses as of 03/14/2023) [facility] Narrative* Problem [...] of this encounter (statuses as of 03/20/2023) [facility] Narrative* Problem [...] of this encounter (statuses as of 03/22/2023) [facility] Narrative* Problem [...] of this encounter (statuses as of 03/22/2023) [facility] Narrative* Problem [...] of this encounter (statuses as of 03/23/2023) [facility] Narrative* Problem [...] of this encounter (statuses as of 03/27/2023) [facility] Narrative* Problem [...] of this encounter (statuses as of 04/11/2023) [facility] Narrative* Problem [...] of this encounter (statuses as of 04/13/2023) [facility] Narrative* Problem [...] of this encounter (statuses as of 07/25/2021) [facility] Narrative* Problem [...] of this encounter (statuses as of 08/12/2021) [facility] Narrative* Problem [...] of this encounter (statuses as of 08/18/2021) [facility] Narrative* Problem [...] of this encounter (statuses as of 08/24/2021) [facility]* Diagnosis Medication management Encounter for long-term (current) use of other medications documented in this encounter [facility] noteNo assessment information availableWLima Memorial Hospital Work Phone: Evaluation note* Diagnosis Dementia with behavioral disturbance- Primary Dementia, unspecified, with behavioral disturbance Major depressive disorder with current active episode, unspecified depression episode severity, unspecified whether recurrent Primary hypertension Unspecified essential hypertension Hypothyroidism, acquired Unspecified hypothyroidism Hyperlipidemia LDL goal <130 Other and unspecified hyperlipidemia Impacted cerumen of both ears Impacted cerumen documented in this encounter [facility] HospitalEvalunem[facility] foundation note* Diagnosis Sinusitis, unspecified chronicity, unspecified location- Primary Dementia with behavioral disturbance (HCC) Dementia, unspecified, with behavioral disturbance Major depressive disorder with current active episode, unspecified depression episode severity, unspecified whether recurrent documented in this encounter [facility]* Diagnosis Dementia with behavioral disturbance (HCC)- Primary Dementia, unspecified, with behavioral disturbance Major depressive disorder with current active episode, unspecified depression episode severity, unspecified whether recurrent Venous (peripheral) insufficiency Unspecified venous (peripheral) insufficiency Primary hypertension Unspecified essential hypertension documented in this encounter [facility]* Diagnosis Dementia with behavioral disturbance (HCC)- Primary Dementia, unspecified, with behavioral disturbance Major depressive disorder with current active episode, unspecified depression episode severity, unspecified whether recurrent Seborrheic dermatitis of scalp Other seborrheic dermatitis Hypothyroidism, acquired Unspecified hypothyroidism Hyperlipidemia LDL goal <130 Other and unspecified hyperlipidemia [facility] Acute erythematous eruption of skin- Primary Venous insufficiency Unspecified venous (peripheral) insufficiency Bilateral lower extremity edema Edema documented in this encounter [facility]* Diagnosis Acute erythematous eruption of skin- Primary Bilateral lower extremity edema Edema Venous insufficiency Unspecified venous (peripheral) insufficiency Primary hypertension Unspecified essential hypertension DDD (degenerative disc disease), lumbar Degeneration of lumbar or lumbosacral intervertebral disc documented [facility] encounter [facility]* Diagnosis Avulsion of toenail, initial encounter- Primary Injury of right great toe, initial encounter Cellulitis of great toe of right foot Cellulitis and abscess of toe, unspecified [facility]* Diagnosis Major depressive disorder with current active episode, unspecified depression episode severity, unspecified whether recurrent- Primary Dementia with behavioral disturbance (HCC) Dementia, unspecified, with behavioral disturbance documented in this encounter [facility]* Diagnosis Traumatic avulsion of nail plate of toe, initial encounter- Primary Onychomycosis Dermatophytosis of nail Venous insufficiency Unspecified venous (peripheral) insufficiency Callus Corns and callosities [facility]* Diagnosis Dyspnea, unspecified type- Primary Venous (peripheral) insufficiency Unspecified venous (peripheral) insufficiency Stasis dermatitis of both legs Varicose veins of lower extremities with inflammation Dementia with behavioral disturbance (HCC) Dementia, unspecified, with behavioral disturbance History of panic attacks documented in this encounter [facility]* Diagnosis Onset Date Resolution Status Declining functional status acute Dehydration acute Multiple falls acute [facility] Work Phone: Evaluation note* Diagnosis Cellulitis of lower extremity, unspecified laterality Bilateral lower extremity edema Edema documented in [facility] Diagnosis Major depressive disorder with current active episode, unspecified depression episode severity, unspecified whether recurrent Dementia with behavioral disturbance (HCC) Dementia, unspecified, with behavioral disturbance documented in this [facility]* Diagnosis Injury of right great toe, initial encounter [facility]* Diagnosis DDD (degenerative disc disease), lumbar Degeneration of lumbar or lumbosacral intervertebral disc Hyperlipidemia LDL goal <130 Other and unspecified hyperlipidemia Venous (peripheral) insufficiency Unspecified venous (peripheral) insufficiency documented in [facility] encounter [facility]* Diagnosis Dementia with behavioral disturbance (HCC) Dementia, unspecified, with behavioral disturbance [facility] Diagnostic Procedure Only (Routine) - Closed Specialty Diagnoses / Procedures Referred By Gerda noyola Referred To Contact XR IMAGING Diagnoses Injury of right great toe, initial encounter Procedures XR FOOT GENERAL 3V AP/LAT/OBL RIGHT RADEX FOOT COMPLETE MINIMUM 3 VIEWS Nedra Cheema APRN.PROTOTYPE MODEL MAKER [address] [place] [address] Xr Imaging Referral ID Status Reason Start Date Expiration Date V isits Requested Visits Authorized [id number] Closed Auto-Generate d Referral 10/31/2022 11/30/2023 1 1 * Consult, Test, Treat (Routine) - Pending Review Specialty Diagnoses / Procedures Referred By Gerda noyola Referred To Contact Podiatry Diagnoses Injury of right great toe, initial encounter Cellulitis of great toe of right foot Avulsion of toenail, initial encounter Procedures CONSULT TO PODIATRY OFFICE/OUTPATIENT [facility] 60-74 MINUTES Nedra Cheema APRN.PROTOTYPE MODEL MAKER [address] [place] [address] Referral ID Status Reason Start Date Expiration Date Visits Requested Visits Authorized [id number] Pending Review PCP Requested Referral 10/31/2022 10/31/2023 1 1 [facility] for referral (narrative)* Diagnostic Procedure Only (Routine) - Closed Specialty Diagnoses / Procedures Referred By Contac t Referred To Contact XR IMAGING Diagnoses Injury of right great toe, initial encounter Procedures XR FOOT GENERAL 3V AP/LAT/OBL RIGHT RADEX FOOT COMPLETE MINIMUM 3 VIEWS Nedra Cheema APRN.PROTOTYPE MODEL MAKER [address] [place] [address] [place] [address] Referral ID Status Reason Start Date Expiration Date V isits Requested Visits Authorized [id number] Closed Auto-Generate d Referral 10/31/2022 11/30/2023 1 1 [facility]ative)No reason for referral information availableWLima [facility] Work Phone: Reason for visit Narrative* Diagnostic Procedure Only (Routine) - Closed Specialty Diagnoses / Procedures Referred By Contac t Referred To Contact XR IMAGING Diagnoses Injury of right great toe, initial encounter Procedures XR FOOT GENERAL 3V AP/LAT/OBL RIGHT RADEX FOOT COMPLETE MINIMUM 3 VIEWS Nedra Cheema, CUATE.PROTOTYPE MODEL MAKER [address] [place] [address] [place] [address] Referral ID Status Reason Start Date Expiration Date V isits Requested Visits Authorized [id number] Closed Auto-Generate d Referral 10/31/2022 11/30/2023 1 1 [facility] Advance Directives No Advanced Directives Records FoundDocuments on File Type Date Recorded Patient Cis Coordinator Expl anation Advance Directive(s) 05/30/2016 10:59 AM Advance Directive Response Recorded Date/ Time Living Will Yes March 26, 8:59am Power of Flight Attendant Yes March 26, 2022 8:59am Name of Medical Power of Flight Attendant ? March 26, 2022 8:59am Advance Directive Response Recorded Date/ Time Name of Medical Power of Flight Attendant ? March 26, 2022 8:59am Living Will No April 08 6:52pm Power of Flight Attendant No April 08, 2022 6:52pm Advance Directive Response Recorded Date/ Time Living Will No April 08 7:52pm Power of Flight Attendant No April 08, 2022 7:52pm Documents on File Type Date Recorded Patient Cis Coordinator Expl anation Advance Directive(s) 08/07/2022 9:32 AM Documents on File Type Date Recorded Patient Cis Coordinator Expl anation Advance Directive(s) 08/07/2022 9:32 AM Advance Directive Response Recorded Date/ Time Name of Medical Power of Flight Attendant SANDY VALDEZ LELANDKhalif February 23, 2023 10:50pm Living Will No February 23 10:50pm Power of Flight Attendant Yes February 23, 2023 10:50pm Chief Complaint and Reason for Visit Chief Complaint urinary sx Chief Complaint urinary sx WOUND CHECK Chief Complaint urinary sx WOUND CHECK anxiety [facility] Chief Complaint WOUND CHECK anxiety [facility] WORK [facility] Chief Complaint anxiety [facility] WORK [facility] Chief Complaint [facility] LAB WOR K [facility]WORK [facility] Chief Complaint [facility] LABWORK [facility]WORK [facility] Chief Complaint RECURRENT FALL RECURRENT FALL RECURRENT FALL Reason for Visit Declining functional status Dehydration Multiple falls Chief Complaint Admit Date [facility] August 21, 2024 5 :00am Chief Complaint Admit Date [facility] August 21, 2024 5 :00am FALL October 06, 2024 4:47p m Chief Complaint Admit Date [facility] August 21, 2024 5 :00am [facility] September 30, 2024 9:0 0pm [...] CONSULT TO ENT José Miguel Frias MD [address] [place] [id number] Referral ID Status Reason Start Date Expiration Date Visits Requested Visits Authorized [id number] Ref Not Required PCP Requested Referral 06/14/2022 06/14/2023 1 1 Specialty Diagnoses / Procedures Referred By Gerda noyola Referred To Contact Neurology Diagnoses Dementia with behavioral disturbance Procedures CONSULT TO NEUROLOGY OFFICE/OUTPATIENT [facility] 60-74 MINUTES José Miguel Frias MD [address] [place] [address] Referral ID Status Reason Start Date Expiration Date Visits Requested Visits Authorized [id number] Pending Review PCP Requested Referral 06/14/2022 06/14/2023 1 1 Specialty Diagnoses / Procedures Referred By Contac t Referred To Contact Cardiology Diagnoses Dyspnea, unspecified type Procedures CONSULT TO CARDIOLOGY José Miguel Frias MD [address] [place] [address] Referral ID Status Reason Start Date Expiration Date Visits Requested Visits Authorized [id number] Ref Not Required PCP Requested Referral 12/22/2022 12/22/2023 1 1 Specialty Diagnoses / Procedures Referred By Contac t Referred To [facility] Diagnoses Dyspnea, unspecified type Procedures ECG COMPLETE ECG ROUTINE ECG W/LEAST 12 LDS W/I&R José Miguel Frias MD [address] [place] [address] [facility] [address] [place] [address] Referral ID Status Reason Start Date Expiration Date V isits Requested Visits Authorized [id number] Closed Auto-Generate d Referral 12/22/2022 12/22/2023 1 1 Summary Purpose Additional Source Comments Source Comments (unrecognize d section and content) In the event this informatio n is protected by the Federal Confidentiality of Alcohol and Drug Abuse Patient Records regulations: The Federal rules restrict any use of the information to criminally investigate or prosecute any alcohol or drug abuse patient.[facility] the event this information is protected by the Federal Confidentiality of Alcohol and Drug Abuse Patient Records regulations: The Federal rules restrict any use of the information to criminally investigate or prosecute any alcohol or drug abuse patient.[facility] HospitalIn the event this information is protected by the Federal Confidentiality of Alcohol and Drug Abuse Patient Records regulations: The Federal rules restrict any use of the information to criminally investigate or prosecute any alcohol or drug abuse patient.[facility] HospitalIn the event this information is protected by the Federal Confidentiality of Alcohol and Drug Abuse Patient Records regulations: The Federal rules restrict any use of the information to criminally investigate or prosecute any alcohol or drug abuse patient.[facility] HospitalIn the event this information is protected by the Federal Confidentiality of Alcohol and Drug Abuse Patient Records regulations: The Federal rules restrict any use of the information to criminally investigate or prosecute any alcohol or drug abuse patient.[facility] HospitalIn the event this information is protected by the Federal Confidentiality of Alcohol and Drug Abuse Patient Records regulations: The Federal rules restrict any use of the information to criminally investigate or prosecute any alcohol or drug abuse patient.[facility] HospitalIn the event this information is protected by the Federal Confidentiality of Alcohol and Drug Abuse Patient Records regulations: The Federal rules restrict any use of the information to criminally investigate or prosecute any alcohol or drug abuse patient.[facility] HospitalIn the event this information is protected by the Federal Confidentiality of Alcohol and Drug Abuse Patient Records regulations: The Federal rules restrict any use of the information to criminally investigate or prosecute any alcohol or drug abuse patient.[facility] HospitalIn the event this information is protected by the Federal Confidentiality of Alcohol and Drug Abuse Patient Records regulations: The Federal rules restrict any use of the information to criminally investigate or prosecute any alcohol or drug abuse patient.[facility] HospitalIn the event this information is protected by the Federal Confidentiality of Alcohol and Drug Abuse Patient Records regulations: The Federal rules restrict any use of the information to criminally investigate or prosecute any alcohol or drug abuse patient.[facility] HospitalIn the event this information is protected by the Federal Confidentiality of Alcohol and Drug Abuse Patient Records regulations: The Federal rules restrict any use of the information to criminally investigate or prosecute any alcohol or drug abuse patient.[facility] HospitalIn the event this information is protected by the Federal Confidentiality of Alcohol and Drug Abuse Patient Records regulations: The Federal rules restrict any use of the information to criminally investigate or prosecute any alcohol or drug abuse patient.[facility] HospitalIn the event this information is protected by the Federal Confidentiality of Alcohol and Drug Abuse Patient Records regulations: The Federal rules restrict any use of the information to criminally investigate or prosecute any alcohol or drug abuse patient.[facility] HospitalIn the event this information is protected by the Federal Confidentiality of Alcohol and Drug Abuse Patient Records regulations: The Federal rules restrict any use of the information to criminally investigate or prosecute any alcohol or drug abuse patient.[facility] HospitalIn the event this information is protected by the Federal Confidentiality of Alcohol and Drug Abuse Patient Records regulations: The Federal rules restrict any use of the information to criminally investigate or prosecute any alcohol or drug abuse patient.[facility] HospitalIn the event this information is protected by the Federal Confidentiality of Alcohol and Drug Abuse Patient Records regulations: The Federal rules restrict any use of the information to criminally investigate or prosecute any alcohol or drug abuse patient.[facility] HospitalIn the event this information is protected by the Federal Confidentiality of Alcohol and Drug Abuse Patient Records regulations: The Federal rules restrict any use of the information to criminally investigate or prosecute any alcohol or drug abuse patient.[facility] HospitalIn the event this information is protected by the Federal Confidentiality of Alcohol and Drug Abuse Patient Records regulations: The Federal rules restrict any use of the information to criminally investigate or prosecute any alcohol or drug abuse patient.[facility] HospitalIn the event this information is protected by the Federal Confidentiality of Alcohol and Drug Abuse Patient Records regulations: The Federal rules restrict any use of the information to criminally investigate or prosecute any alcohol or drug abuse patient.[facility] HospitalIn the event this information is protected by the Federal Confidentiality of Alcohol and Drug Abuse Patient Records regulations: The Federal rules restrict any use of the information to criminally investigate or prosecute any alcohol or drug abuse patient.[facility] HospitalIn the event this information is protected by the Federal Confidentiality of Alcohol and Drug Abuse Patient Records regulations: The Federal rules restrict any use of the information to criminally investigate or prosecute any alcohol or drug abuse patient.[facility] HospitalIn the event this information is protected by the Federal Confidentiality of Alcohol and Drug Abuse Patient Records regulations: The Federal rules restrict any use of the information to criminally investigate or prosecute any alcohol or drug abuse patient.[facility] HospitalIn the event this information is protected by the Federal Confidentiality of Alcohol and Drug Abuse Patient Records regulations: The Federal rules restrict any use of the information to criminally investigate or prosecute any alcohol or drug abuse patient.[facility] HospitalIn the event this information is protected by the Federal Confidentiality of Alcohol and Drug Abuse Patient Records regulations: The Federal rules restrict any use of the information to criminally investigate or prosecute any alcohol or drug abuse patient.[facility] HospitalIn the event this information is protected by the Federal Confidentiality of Alcohol and Drug Abuse Patient Records regulations: The Federal rules restrict any use of the information to criminally investigate or prosecute any alcohol or drug abuse patient.[facility] HospitalIn the event this information is protected by the Federal Confidentiality of Alcohol and Drug Abuse Patient Records regulations: The Federal rules restrict any use of the information to criminally investigate or prosecute any alcohol or drug abuse patient.[facility] HospitalIn the event this information is protected by the Federal Confidentiality of Alcohol and Drug Abuse Patient Records regulations: The Federal rules restrict any use of the information to criminally investigate or prosecute any alcohol or drug abuse patient.[facility] HospitalIn the event this information is protected by the Federal Confidentiality of Alcohol and Drug Abuse Patient Records regulations: The Federal rules restrict any use of the information to criminally investigate or prosecute any alcohol or drug abuse patient.[facility] HospitalIn the event this information is protected by the Federal Confidentiality of Alcohol and Drug Abuse Patient Records regulations: The Federal rules restrict any use of the information to criminally investigate or prosecute any alcohol or drug abuse patient.[facility] HospitalIn the event this information is protected by the Federal Confidentiality of Alcohol and Drug Abuse Patient Records regulations: The Federal rules restrict any use of the information to criminally investigate or prosecute any alcohol or drug abuse patient.[facility] HospitalIn the event this information is protected by the Federal Confidentiality of Alcohol and Drug Abuse Patient Records regulations: The Federal rules restrict any use of the information to criminally investigate or prosecute any alcohol or drug abuse patient.[facility] HospitalIn the event this information is protected by the Federal Confidentiality of Alcohol and Drug Abuse Patient Records regulations: The Federal rules restrict any use of the information to criminally investigate or prosecute any alcohol or drug abuse patient.[facility] HospitalIn the event this information is protected by the Federal Confidentiality of Alcohol and Drug Abuse Patient Records regulations: The Federal rules restrict any use of the information to criminally investigate or prosecute any alcohol or drug abuse patient.[facility] HospitalIn the event this information is protected by the Federal Confidentiality of Alcohol and Drug Abuse Patient Records regulations: The Federal rules restrict any use of the information to criminally investigate or prosecute any alcohol or drug abuse patient.[facility] HospitalIn the event this information is protected by the Federal Confidentiality of Alcohol and Drug Abuse Patient Records regulations: The Federal rules restrict any use of the information to criminally investigate or prosecute any alcohol or drug abuse patient.[facility] HospitalIn the event this information is protected by the Federal Confidentiality of Alcohol and Drug Abuse Patient Records regulations: The Federal rules restrict any use of the information to criminally investigate or prosecute any alcohol or drug abuse patient.[facility] HospitalIn the event this information is protected by the Federal Confidentiality of Alcohol and Drug Abuse Patient Records regulations: The Federal rules restrict any use of the information to criminally investigate or prosecute any alcohol or drug abuse patient.[facility] HospitalIn the event this information is protected by the Federal Confidentiality of Alcohol and Drug Abuse Patient Records regulations: The Federal rules restrict any use of the information to criminally investigate or prosecute any alcohol or drug abuse patient.[facility] HospitalIn the event this information is protected by the Federal Confidentiality of Alcohol and Drug Abuse Patient Records regulations: The Federal rules restrict any use of the information to criminally investigate or prosecute any alcohol or drug abuse patient.[facility] HospitalIn the event this information is protected by the Federal Confidentiality of Alcohol and Drug Abuse Patient Records regulations: The Federal rules restrict any use of the information to criminally investigate or prosecute any alcohol or drug abuse patient.[facility] HospitalIn the event this information is protected by the Federal Confidentiality of Alcohol and Drug Abuse Patient Records regulations: The Federal rules restrict any use of the information to criminally investigate or prosecute any alcohol or drug abuse patient.[facility] HospitalIn the event this information is protected by the Federal Confidentiality of Alcohol and Drug Abuse Patient Records regulations: The Federal rules restrict any use of the information to criminally investigate or prosecute any alcohol or drug abuse patient.[facility] HospitalIn the event this information is protected by the Federal Confidentiality of Alcohol and Drug Abuse Patient Records regulations: The Federal rules restrict any use of the information to criminally investigate or prosecute any alcohol or drug abuse patient.[facility] HospitalIn the event this information is protected by the Federal Confidentiality of Alcohol and Drug Abuse Patient Records regulations: The Federal rules restrict any use of the information to criminally investigate or prosecute any alcohol or drug abuse patient.[facility] HospitalIn the event this information is protected by the Federal Confidentiality of Alcohol and Drug Abuse Patient Records regulations: The Federal rules restrict any use of the information to criminally investigate or prosecute any alcohol or drug abuse patient.[facility] Reason for Visit (unrecogniz ed section and content) Reason Comments Refill Request Reason Comments Prescription Refills Reason Comments Establish Care From Dr. Morales Rob Reason Comments Established Patient X 2 days chest conge stion and cough Reason Comments behavioral change Reason Onset Date Comments Allied Health Visit 07/07/2022 Medication A dherence Outreach Reason Comments 6 week follow-up Forms/letter [facility] [place] Reason Onset Date Comments Refill Request 07/31/2022 Reason Comments Results Reason Comments Patient Update Conferenced facility [employer] to affiliate line Reason Comments Patient Update Reason Comments Confusion Reason Comments Rash Reason Comments Medication Question Reason Comments blisters nad redneess going up rk lower legs Reason Comments Follow Up 1 WEEK Reason Onset Date Comments Population Health Navigation Outreach 10/05/2022 [place] care gap Reason Comments Toe Pain (Big) red and inflammed Reason Comments New nail care Nail Check Reason Onset Date Comments Refill Request 11/29/2022 Reason Comments Recheck Reason Comments [facility] Plan Reason Comments [facility] PT POC Reason Comments Edema Reason Comments Medication Problem Reason Comments Release Of Medical Records Reason Comments medication allergy Reason Comments report on patient legs Reason Onset Date Comments Refill Request 03/23/[address]23 Reason [address] [facility] Update Reason Comments Orders Reason Onset Date Comments Refill Request 04/12/2023 Reason Onset Date Comments Population Health Navigation Outreach 08/30/2023 [place] [facility] [place] CURRENT ROSTER workbench - AWV, Care gaps, HCC gap closure - [place] [facility] Reason Onset Date Comments Population Health Navigation Outreach 10/09/2023 [place] [facility] CURRENT ROSTER workbench - AWV, Care gaps, HCC gap closure - [place] [facility] Reason Onset Date Comments Population Health Navigation Outreach 12/14/2023 [place] Workbench - [place] [facility] Reason Comments Patient Outreach Reason Comments request medicaiton not on current [facility] Care Teams (unrecognized sec tion and content) [...] October 06, 2024 End: October 06, 2024 Administration Clerk Relationship Specialty Start Date End Date José Miguel Frias MD [address] [place], [place] [id number] PCP - General Internal Medicine 05/25/21 Administration Clerk Relationship Specialty Start Date End Date José Miguel Frias MD [address] [place], [place] [id number] PCP - General Internal Medicine 05/25/21 Team [...] Active Mary Rob MD Attending Provider Active Administration Clerk Relationship Specialty Start Date End Date José Miguel Frias MD [address] [facility] [place] [address] PCP - General Internal Medicine 06/14/22 Administration Clerk Relationship Specialty Start Date End Date José Miguel Frias MD [address] [facility] [place] [address] PCP - General Internal Medicine 06/14/22 Administration Clerk Relationship Specialty Start Date End Date José Miguel Frias MD [address] [facility] [place] [address] PCP - General Internal Medicine 06/14/22 Administration Clerk Relationship Specialty Start Date End Date José Miguel Frias MD [address] [facility] [place] [address] PCP - General Internal Medicine 06/14/22 Administration Clerk Relationship Specialty Start Date End Date José Miguel Frias MD [address] [facility] [place] [address] PCP - General Internal Medicine 06/14/22 Team [...] José Miguel VELASQUEZ MD Attending Provider Active Administration Clerk Relationship Specialty Start Date End Date José Miguel Frias MD [address] [facility] [place] [address] PCP - General Internal Medicine 06/14/22 Administration Clerk Relationship Specialty Start Date End Date José Miguel Frias MD [address] [facility] [place] [address] PCP - General Internal Medicine 06/14/22 Administration Clerk Relationship Specialty Start Date End Date José Miguel Frias MD [address] [facility] [place] [address] PCP - General Internal Medicine 06/14/22 Administration Clerk Relationship Specialty Start Date End Date José Miguel Frias MD [address] [facility] [place] [address] PCP - General Internal Medicine 06/14/22 Administration Clerk Relationship Specialty Start Date End Date José Miguel Frias MD [address] [facility] [place] [address] PCP - General Internal Medicine 06/14/22 Administration Clerk Relationship Specialty Start Date End Date José Miguel Frias MD [address] [facility] [place] [address] PCP - General Internal Medicine 06/14/22 Administration Clerk Relationship Specialty Start Date End Date José Miguel Frias MD [address] [facility] [place] [address] PCP - General Internal Medicine 06/14/22 Administration Clerk Relationship Specialty Start Date End Date José Miguel Frias MD [address] [facility] [place] [address] PCP - General Internal Medicine 06/14/22 Administration Clerk Relationship Specialty Start Date End Date José Miguel Frias MD [address] [facility] [place] [address] PCP - General Internal Medicine 06/14/22 Administration Clerk Relationship Specialty Start Date End Date José Miguel Frias MD [address] [facility] [place] [address] PCP - General Internal Medicine 06/14/22 Administration Clerk Relationship Specialty Start Date End Date José Miguel Frias MD [address] [facility] [place] [address] PCP - General Internal Medicine 06/14/22 Administration Clerk Relationship Specialty Start Date End Date José Miguel Frias MD [address] [facility] [place] [address] PCP - General Internal Medicine 06/14/22 Administration Clerk Relationship Specialty Start Date End Date José Miguel Frias MD [address] [place] [address] PCP - General Internal Medicine 06/14/22 Administration Clerk Relationship Specialty Start Date End Date José Miguel Frias MD [address] [place] [address] PCP - General Internal Medicine 06/14/22 Team [...] Dr. Will Bah DO Attending Provider Active Administration Clerk Relationship Specialty Start Date End Date José Miguel Frias MD [address] [place] [address] PCP - General Internal Medicine 06/14/22 Administration Clerk Relationship Specialty Start Date End Date José Miguel Frias MD [address] [facility] [place] [address] PCP - General Internal Medicine 06/14/22 Administration Clerk Relationship Specialty Start Date End Date José Miguel Frias MD [address] [facility] [place] [address] PCP - General Internal Medicine 06/14/22 Administration Clerk Relationship Specialty Start Date End Date José Miguel Frias MD [address] [facility] [place] [address] PCP - General Internal Medicine 06/14/22 Administration Clerk Relationship Specialty Start Date End Date José Miguel Frias MD [address] [facility] [place] [address] PCP - General Internal Medicine 06/14/22 Administration Clerk Relationship Specialty Start Date End Date José Miguel Frias MD [address] [facility] [place] [address] PCP - General Internal Medicine 06/14/22 Administration Clerk Relationship Specialty Start Date End Date José Miguel Frias MD [address] [facility] [place] [address] PCP - General Internal Medicine 06/14/22 Administration Clerk Relationship Specialty Start Date End Date José Miguel Frias MD [address] [facility] [place] [address] PCP - General Internal Medicine 06/14/22 Administration Clerk Relationship Specialty Start Date End Date José Miguel Frias MD [address] [place] [address] PCP - General Internal Medicine 06/14/22 Administration Clerk Relationship Specialty Start Date End Date José Miguel Frias MD [address] [place] [address] PCP - General Internal Medicine 06/14/22 Administration Clerk Relationship Specialty Start Date End Date Emmanuel Park DO [address] [place] [address] PCP - General Family Medicine 12/19/23 Administration Clerk Relationship Specialty Start Date End Date José Miguel Frias MD [address] [place], [place] [id number] PCP - General Internal Medicine 06/14/22 12/18/23 Administration Clerk Relationship Specialty Start Date End Date Emmanuel Park DO [address] [place] [address] PCP - General Family Medicine 12/19/23 Team [...] section and content) DATE CREATED AUTHOR 04/27/2024 [facility] DATE CREATED AUTHOR AUTHOR'S ORGANIZ ATION 12/12/2024 [facility] FOR RECORDS PERTAINING TO PATIENTS WHO ARE [...] BE BASED ON THE PRIMARY CLINICAL RECORDS. [employer] provides no warranty or guarantee of the accuracy or completeness of information in this document.
== END ==
LOC: OLS.BROOKB 14:30
PROVIDERS: PCP Internal Medicine; Visit Provider Family Medicine
DX: N39.0 Urinary tract infection, site not specified (principal)
CPT/HCPCS: 81002; 87086; 87088

== ENCOUNTER 2025-01-14 14:27 | Emergency (ER) | payer MEDICARE, SELFPAY ==
[2025-01-14 14:27] VITALS: BP 133/68; PULSE 80; RESP 16; TEMP 36.5; O2SAT 100; BMI 30.3
--- NOTE | 2025-01-14 14:53 | EX.ED.DYSGE1 ---
HPI History of Present Illness Chief Complaint: Lower Extremity Injury Detail of Chief Complaint: Concern for fall Informant: patient and EMS Narrative Narrative: Patient presents to the emergency department via EMS from [facility] after being found on her left side. Concern for unwitnessed fall. Apparently she was complaining of left arm and left hip pain. Patient is a very poor historian and really cannot tell me what happened. She complains of right arm pain. She complains of neck pain. Patient not anticoagulated. She denies chest pain or abdominal pain. [facility] Medical History Anxiety Spinal stenosis Depression Hypothyroidism Non-smoker Atrial fibrillation Chest pain Hypertension Dementia Groin pain, chronic, left Hypothyroidism Nonrheumatic mitral (valve) prolapse Hyperlipidemia Premature ventricular contraction Premature atrial contractions Home Medications ?Medication ?Instructions ?Recorded ?Last Taken ?Type aspirin 81 mg tablet,delayed 81 mg PO DAILY@0800 11/18/13 Unknown History release multivitamin with folic acid 400 1 tab PO DAILY 11/18/13 Unknown History mcg tablet simvastatin 20 mg tablet 20 mg PO QHS 10/16/16 Unknown History levothyroxine 88 mcg tablet 88 mcg PO QDAY 11/21/17 Unknown History fluoxetine 20 mg capsule (Prozac) 20 mg PO DAILY 02/23/23 Unknown History rivastigmine 4.6 mg/24 hour 4.6 mg transdermal DAILY 02/23/23 Unknown History transdermal patch melatonin 3 mg capsule 3 mg PO QHS 02/25/23 Unknown History furosemide 20 mg tablet 20 mg PO DAILY 04/11/24 Unknown History hydroxyzine HCl 25 mg tablet 25 mg PO TID PRN anxiety 04/11/24 Unknown History ondansetron 4 mg disintegrating 4 mg PO Q12H PRN nausea and 04/11/24 Unknown History tablet vomiting spironolactone 25 mg tablet 25 mg PO DAILY 04/11/24 Unknown History albuterol sulfate 90 mcg/actuation 2 inh inhalation Q6H PRN shortness 01/14/25 Unknown History aerosol inhaler (Ventolin HFA) of breath or wheezing hydroxyzine pamoate 25 mg capsule 25 mg PO QHS 01/14/25 Unknown History (Vistaril) loperamide 2 mg capsule 2 mg PO TID PRN PRN loose stool 01/14/25 Unknown History (Anti-Diarrheal (loperamide)) nystatin-triamcinolone 100,000 1 applic topical BID #30 grams 01/14/25 Unknown Rx unit/g-0.1 % topical cream quetiapine 25 mg tablet 25 mg PO TID depression 01/14/25 Unknown History Allergy/AdvReac Type Severity Reaction Status Date / Time clindamycin Allergy Vomiting Verified 01/14/25 17:28 Penicillins (PCN) Allergy Hives Verified 01/14/25 17:28 Sulfa (Sulfonamide Allergy Hives Verified 01/14/25 17:28 Antibiotics) atorvastatin calcium (From AdvReac Diarrhea Verified 01/14/25 17:28 Lipitor) hydromorphone HCl (From AdvReac Vomiting Verified 01/14/25 17:28 Dilaudid) morphine AdvReac Vomiting Verified 01/14/25 17:28 potassium AdvReac Diarrhea Verified 01/14/25 17:28 procaine (From Novocain) AdvReac Other Verified 01/14/25 17:28 tetracycline (Tetracycline) AdvReac Vomiting Verified 01/14/25 17:28 Family History (System 09/15/24 @ 10:04 by Yoselyn Chan) Father CAD (coronary artery disease) ICD (implantable cardioverter-defibrillator) in place Brother Pacemaker Brother CAD (coronary artery disease) Myocardial infarction Surgical History History of cataract extraction History of cholecystectomy History of hernia repair History of hysterectomy History of knee replacement procedure of left knee History of knee replacement procedure of right knee Social History (System 09/15/24 @ 10:04 by Yoselyn Chan) Smoking Status: Never smoker alcohol intake: never substance use type: does not use caffeine: No frequency: does not exercise ROS ROS ED Review of Systems ROS Unobtainable: other Constitutional Constitutional ED: Reports lethargy; Denies chills, fever(s), sweats or weight loss Eyes Eyes: Denies blurry vision, change in vision or diplopia ENT ENT ED: Denies rhinorrhea or sore throat Cardiovascular Cardiovascular: Denies chest pain, orthopnea or racing heartbeat Respiratory/Chest Respiratory/Chest: Denies cough, dyspnea, dyspnea on exertion, orthopnea or sputum Gastrointestinal Gastrointestinal: Denies abdominal pain, diarrhea, nausea or vomiting Genitourinary Genitourinary ED: Denies dysuria, hematuria or urinary frequency Musculoskeletal Musculoskeletal: Reports neck pain and other Details: Right upper arm pain ; Denies arthralgias, back pain or myalgias Integumentary Denies abscess, Abrasions or rash Neurologic Neurologic: Denies headache(s) or weakness Psychiatric Psychiatric: Denies anxiety, depression or suicidal thoughts Endocrine Endocrinology: Denies polydipsia, polyphagia or polyuria Hematologic/Lymphatic Hematologic/Lymphatic: Denies easy bleeding, easy bruising or lymphadenopathy Allergic/Immunologic Allergic/Immunologic ED: Denies mouth swelling, tongue swelling or urticaria EXAM Physical Exam Const Vital Signs: 01/14/25 14:27 01/14/25 15:27 01/14/25 17:00 Temperature 97.7 F L Temperature Source Oral Pulse Rate 80 77 82 Respiratory Rate 16 16 18 Blood Pressure 133/68 H 146/72 H 136/76 H Blood Pressure Mean 89 96 96 Pulse Ox 100 99 92 Oxygen Delivery Method Room Air Room Air 01/14/25 18:00 Temperature Temperature Source Pulse Rate 76 Respiratory Rate 16 Blood Pressure 127/76 H Blood Pressure Mean 93 Pulse Ox 97 Oxygen Delivery Method Positive well nourished and well developed General Appearance ED: well developed and NAD HEENT Reports TM's clear and moist mucous membranes normocephalic and atraumatic; Negative for trauma or tenderness Tympanic Membrane ED: Yes TM's clear Eyes PERRL and EOMs intact bilaterally General Eye ED: Negative for pale conjunctiva or scleral icterus Neck no lymphadenopathy, supple and no JVD Neck Narrative: Mild diffuse tenderness. There is no bony step-offs or depressions. Good range of motion General: tenderness Chest Wall inspection of chest normal and palpation of chest normal Chest: Negative for tenderness Resp normal respiratory effort and clear to auscultation bilaterally Effort and Inspection: Negative for respiratory distress or pain with movement Auscultation: Negative for rhonchi, wheezes or diminished lung sounds Cardio regular rate, regular rhythm, S1 normal heart sound, S2 normal heart sound and no murmurs Peripheral Pulses: pulses 2+ throughout GI normal to inspection, nondistended, normoactive bowel sounds, soft to palpation, non-tender, non-distended and no masses Back/Spine no CVA tenderness and no thoracic nor lumbar tenderness Extremity Extremity Narrative: Mild tenderness over the right upper humerus and proximal humerus. No obvious deformity. Good range of motion. Neurovascular intact distally. No pain at the right elbow or wrist. No obvious deformities noted. Right hip-tenderness palpation over the right hip. No shortening or external rotation noted. She is neurovascular intact distally. Right knee-no tenderness on exam. There is no deformity. Good range of motion. Left hip-no significant tenderness on exam. She has no pain with flexion extension of the hip and straight leg raising and logrolling. Neurovascular intact distally. Left upper extremity-patient has no significant tenderness over the shoulder, elbow, or wrist. There is good range of motion. There is no obvious deformity. She is neuro vastly intact. General Extremety ED: Negative for edema General Extremity: Negative for edema Neuro oriented x3, CN's II-XII intact bilaterally, no sensory deficits noted and gait normal Sensorium / Orientation: awake, alert, oriented to person, oriented to place and oriented to time Motor Exam: strength 5/5 throughout and strength abnormal Psych mental status grossly normal Skin no rashes or lesions noted and no wounds MDM MDM MDM Narrative Medical decision making narrative: Patient presents after an unwitnessed possible fall or syncopal episode while at the [facility]. She is a very poor historian as she has history of dementia. She had been found on her left side apparently but she was actually complaining of right side pain. No significant injuries noted grossly on exam. CT scan of the brain without contrast obtained was unremarkable for acute injury however there was new focal area of decreased attenuation in the right frontal lobe as compared to prior study suggestive of ischemic change with some edema. CTA head and neck showed no significant findings. 1 view chest x-ray obtained showed no acute fractures. X-rays of the right humerus obtained showed no fractures. Bilateral hip and pelvis x-rays were negative for fracture. CBC with differential obtained showed a normal white count of 8.7 with hemoglobin 12.0 and platelet count of 246. Chemistries unremarkable. BUN 28 creatinine 0.82. Urinalysis without signs of infection. Discussed results with family. 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 Patient's daughter has power of deputy commonwealth's attorney they do not want any further workup or evaluation for this. Currently she recently signed a DNR for the patient. Daughter that is currently with the patient comfortable with plan going back to [facility]. Lab Data Attestation: I reviewed the patient's lab results. Labs: Laboratory Results - last 24 hr 01/14/25 01/14/25 16:17 17:35 WBC 8.7 RBC 4.11 L Hgb 12.0 Hct 37.4 MCV 91.0 MCH 29.2 MCHC 32.1 RDW Std Deviation 41.3 RDW Coeff of Noah 12.5 Plt Count 246 MPV 9.3 Immature Gran % (Auto) 0.300 Neut % (Auto) 79.1 H Lymph % (Auto) 11.9 L Slope % (Auto) 6.9 Eos % (Auto) 1.5 Baso % (Auto) 0.3 Absolute Neuts (auto) 6.9 Absolute Lymphs (auto) 1.04 Nucleated RBC % 0 Sodium 136 Potassium 4.5 Chloride 101 Carbon Dioxide 23.2 Anion Gap 12 BUN 28 H Creatinine 0.82 Estim Creat Clear Calc 56.91 Est GFR (MDRD) Non-Af 69 BUN/Creatinine Ratio 34.1 H Glucose 101 H Calcium 9.3 Urine Color Straw Urine Clarity Clear Urine pH 7.0 Ur Specific [place] 1.010 Urine Protein Negative Urine Glucose (UA) Normal Urine Ketones Negative Urine Occult Blood 10 H Urine Nitrite Negative Urine Bilirubin Negative Urine Urobilinogen Normal Ur Leukocyte Esterase 500 H Urine RBC 0-5 SEEN Urine WBC 5-10 SEEN Ur Squamous Epith Cells 0-5 SEEN Urine Bacteria 2+ Urine Mucus 0 SEEN Radiography Diagnostic Testing: Clinical Impression(s) from Imaging Studies Brain CT 01/14/25 15:05 IMPRESSION: New focal area of decreased attenuation in the right frontal lobe as compared to prior study suggestive of ischemic change with some edema. Atrophy. Reading Location: [id number] Cervical Spine CT 01/14/25 15:05 IMPRESSION: DEGENERATIVE CHANGES OF THE CERVICAL SPINE. EVIDENCE OF OSSEOUS CENTRAL CANAL OR NEURAL FORAMINAL STENOSIS. Reading Location: [id number] Chest X-Ray 01/14/25 15:15 IMPRESSION: Generalized osteopenia is seen. Bilateral shoulder arthritic changes are seen, right likely [id number]-lypcnmb-ovcb-left, with pseudoarticulation of both humeral heads with both inferior acromia. Infw-qj-oyxwksdp degenerative changes of the thoracic spine with mild dextroscoliosis seen. Although limited by the degree of osteopenia present, no fracture site is identified. Mild right hemidiaphragm elevation is seen. Lungs appear clear of acute disease. No pleural effusion or pneumothorax is evident. The cardiomediastinal silhouette is within the normal range for age and technique. Reading Location: [facility] Hip/Pelvis X-Ray 01/14/25 15:15 IMPRESSION: Prominent degenerative changes are seen throughout the visualized lower lumbar spine. Mild sacroiliac joint degenerative changes are noted. [id number]-dt-ngcqzkwm bilateral hip joint degenerative changes are seen, with partial medial joint narrowing noted bilaterally, probably partial central joint narrowing on the left, as well. No evidence of femoral head osteonecrosis. No fracture or dislocation is seen. If clinical concern persists, short-term follow-up imaging may be obtained to rule out a currently occult fracture. Reading Location: [place] [address] Humerus X-Ray 01/14/25 15:15 IMPRESSION: Generalized osteopenia is seen. Advanced degenerative changes of the right shoulder joint noted, including chronic appearing pseudoarticulation between the superior humeral head and the inferior acromion, with secondary deformities noted. No acute fracture or dislocation is seen. If clinical concern persists, short-term follow-up imaging may be obtained to rule out a currently occult fracture. Reading Location: [place] [address] Head/Neck CTA 01/14/25 16:27 IMPRESSION: No large vessel arterial occlusion or significant stenosis in the head or neck. Reading Location: [facility] 4 view x-rays of right and left hip with pelvis obtained interpreted by myself as no evidence of fracture or dislocation but did show degenerative changes. Radiology in agreement. 2 view x-rays right humerus obtained interpreted by myself as no evidence of fracture or dislocation. Radiology in agreement. 1 view chest x-ray obtained interpreted by myself as no evidence of infiltrate or pneumothorax or acute disease process. No obvious rib fractures. Radiology in agreement. EKG Initial EKG: Attestation: I personally reviewed and interpreted this EKG as follows: Comments: Sinus rhythm with rate of 77 bpm with first-degree AV block Discharge Plan Triage Chief Complaint: Lower Extremity Injury ED Provider: Jayne Herrera Dx/Rx/DC Orders Clinical Impression: Closed head injury, Contusion of arm, right, Contusion of right hip, Candidal skin infection Instructions: ED [place] Skin Infection (Adult), ED Contusion, Lower Extremity, ED Contusion, Upper Extremity, ED Head Injury (Adult) Prescriptions: New nystatin-triamcinolone 100,000-0.1 unit/g-% cream 1 applic topical BID Qty: 30 0RF No Action levothyroxine 88 mcg tablet 88 mcg PO QDAY aspirin 81 MG tablet 81 mg PO DAILY@0800 multivitamin with folic acid 1 TABLET tablet 1 tab PO DAILY simvastatin 20 MG tablet 20 mg PO QHS fluoxetine [Prozac] 20 mg capsule 20 mg PO DAILY Patient Comments: Take 1 capsule By Mouth every morning rivastigmine 4.6 mg/24 hour patch 24 hour 4.6 mg transdermal DAILY melatonin 3 mg capsule 3 mg PO QHS hydroxyzine HCl 25 mg tablet 25 mg PO TID PRN (Reason: anxiety) furosemide 20 mg tablet 20 mg PO DAILY ondansetron 4 mg tablet,disintegrating 4 mg PO Q12H PRN (Reason: nausea and vomiting) spironolactone 25 mg tablet 25 mg PO DAILY loperamide [Anti-Diarrheal (loperamide)] 2 mg capsule 2 mg PO TID PRN PRN (Reason: loose stool) albuterol sulfate [Ventolin HFA] 90 mcg/actuation HFA aerosol inhaler 2 inh inhalation Q6H PRN (Reason: shortness of breath or wheezing) hydroxyzine pamoate [Vistaril] 25 mg capsule 25 mg PO QHS quetiapine 25 mg tablet 25 mg PO TID Primary Care Provider: José Miguel Frias Referrals: José Miguel Frias MD [Primary Care Provider] - Print Language: Setswana Disposition Disposition: Home, Self Care
--- NOTE | 2025-01-14 15:05 | CT_ITS ---
PROCEDURE: SPINE CERVICAL WITHOUT CONTRAS 01/14/2025 REASON FOR EXAM: FALL TECHNIQUE: Procedure Code: CTSPC Modality: CT Procedure: SPINE CERVICAL WITHOUT CONTRAS Coronal and Sagittal reconstruction series were provided. One or more dose reduction techniques were used (e.g., Automated exposure control, adjustment of the mA and/or kV according to patient size, use of iterative reconstruction technique. RADIATION DOSE SUMMARY: CTDlvol: 16.06 mGy DLP: 315.36 mGycm COMPARISON: None FINDINGS: Alignment: Straightening of the normal cervical lordosis. Vertebrae: Multilevel spondylosis. Soft Tissues: No prevertebral soft tissue swelling. Other: C1-2: Degenerative changes at the atlantoaxial joint. C2-3: Facet joint osteoarthritis and hypertrophy worse on the left side. Mild bilateral neural foraminal stenosis. C3-4: Moderate degree of disc space narrowing. Facet joint osteoarthritis. Uncovertebral arthrosis worse on the left side. Moderate degree of left neural foraminal stenosis. C4-5: Marked degree of disc space narrowing. Uncovertebral arthrosis. Bilateral neural foraminal stenosis. Egvtmmyz-wp-eozylh degree of neural foraminal stenosis. C5-6: Marked degree of disc space narrowing. Spondylosis. Uncovertebral arthrosis. Bilateral neural foraminal stenosis. C6-7: Marked degree of disc space narrowing. Spondylosis. Uncovertebral arthrosis and facet joint osteoarthritis. Mild degree of neural foraminal stenosis. C7-T1: Disc space narrowing CT/Spine Cervical without Contras IMPRESSION: DEGENERATIVE CHANGES OF THE CERVICAL SPINE. EVIDENCE OF OSSEOUS CENTRAL CANAL OR NEURAL FORAMINAL STENOSIS. Reading Location: [facility]
--- NOTE | 2025-01-14 15:05 | CT_ITS ---
PROCEDURE: BRAIN/HEAD WITHOUT CONTRAST 01/14/2025 REASON FOR EXAM: FALL History of fall. TECHNIQUE: Procedure Code: CTBR Modality: CT Procedure: BRAIN/HEAD WITHOUT CONTRAST Coronal and Sagittal reconstruction series were provided. One or more dose reduction techniques were used (e.g., Automated exposure control, adjustment of the mA and/or kV according to patient size, use of iterative reconstruction technique. RADIATION DOSE SUMMARY: CTDlvol: 44.99 mGy DLP: 812.98 mGycm COMPARISON: Prior study dated October 06, 2024 FINDINGS: Brain: Focal area of decreased attenuation in the anterior aspect of the right frontal lobe. This is new as compared to prior study and may represent an area of ischemic change with some edema. CSF Spaces: Mild generalized cerebral atrophy Sinuses/Mastoids: Clear at visualized levels Bones: Unremarkable CT/Brain/Head without Contrast IMPRESSION: New focal area of decreased attenuation in the right frontal lobe as compared t o prior study suggestive of ischemic change with some edema. Atrophy. Reading Location: [id number]
--- NOTE | 2025-01-14 15:15 | RAD_ITS ---
PROCEDURE: CHEST 1 VIEW (PORTABLE) 01/14/2025 REASON FOR EXAM: FALL TECHNIQUE: Frontal view of the chest. COMPARISON: None. RAD/Chest 1 View (Portable) IMPRESSION: Generalized osteopenia is seen. Bilateral shoulder arthritic changes are seen, right likely fduyb-tyoszcu-tqjg- left, with pseudoarticulation of both humeral heads with both inferior acromia. Lugt-ov-jiwjpvbj degenerative changes of the thoracic spine with mild dextrosco liosis seen. Although limited by the degree of osteopenia present, no fracture site is ident ified. Mild right hemidiaphragm elevation is seen. Lungs appear clear of acute disease. No pleural effusion or pneumothorax is evident. The cardiomediastinal silhouette is within the normal range for age and techniq ue. Reading Location: [place] [address]
--- NOTE | 2025-01-14 15:15 | RAD_ITS ---
PROCEDURE: HUMERUS MIN 2 VIEWS 01/14/2025 REASON FOR EXAM: FALL TECHNIQUE: Procedure Code: RADHUM Modality: DX Procedure: HUMERUS MIN 2 VIEWS Laterality: Right COMPARISON: None. RAD/Humerus min 2 Views IMPRESSION: Generalized osteopenia is seen. Advanced degenerative changes of the right shoulder joint noted, including vice president regulatory [place] appearing pseudoarticulation between the superior humeral head and the inferior acromion, with secondary deformities not ed. No acute fracture or dislocation is seen. If clinical concern persists, short-term follow-up imaging may be obtained to r ule out a currently occult fracture. Reading Location: [place] [address]
--- NOTE | 2025-01-14 15:15 | RAD_ITS ---
PROCEDURE: HIPS B/L MIN 2 VIEWS W/ PELVIS 01/14/2025 REASON FOR EXAM: FALL TECHNIQUE: Procedure Code: RADHPELP Modality: DX Procedure: HIPS B/L MIN 5 VIEWS W/ PELVIS Laterality: Bilateral COMPARISON: None. RAD/Hips B/L min 2 views w/ Pelvis IMPRESSION: Prominent degenerative changes are seen throughout the visualized lower lumbar spine. Mild sacroiliac joint degenerative changes are noted. Bxbb-cs-oacnfyze bilateral hip joint degenerative changes are seen, with partia l medial joint narrowing noted bilaterally, probably partial central joint narrowing on the left, as well. No evidence of femoral head osteonecrosis. No fracture or dislocation is seen. If clinical concern persists, short-term follow-up imaging may be obtained to r ule out a currently occult fracture. Reading Location: [place] [address]
[2025-01-14 15:27] VITALS: BP 146/72; PULSE 77; RESP 16; O2SAT 99
[2025-01-14 16:23] LABS: Hematocrit 37.4 % (37-47); Hemoglobin 12.0 g/dL (12.0-15.0); Immature Granulocytes Count 0.030 X10^3/uL (0.0-0.0); Mean Corp Hgb Conc 32.1 g/dL (32-36); Mean Corpuscular Volume 91.0 fL (81-99); Mean Platelet Vol. 9.3 fl (6.2-12.0); NRBC Flagged by Analyzer 0 % (0-5); Platelet Count 246 K/mm3 (150-450); RBC Distribution Width CV 12.5 % (11.6-14.6); RBC Distribution Width SD 41.3 fl (35.1-43.9); Red Blood Count 4.11 M/mm3 (4.2-5.4); White Blood Count 8.7 K/mm3 (4.4-11.0)
--- NOTE | 2025-01-14 16:27 | CT_ITS ---
PROCEDURE: CTA HEAD AND NECK W/ CONTRAST 01/14/2025 REASON FOR EXAM: CVA TECHNIQUE: Procedure Code: CTCTA.HDNCK Modality: CT Procedure: CTA HEAD AND NECK W/ CONTRAST Multiplanar Sagittal and Coronal images were obtained. 3D/MIP post processing was performed. CONTRAST: Isovue 370 VOLUME: 100 mL One or more dose reduction techniques were used (e.g., Automated exposure control, adjustment of the mA and/or kV according to patient size, use of iterative reconstruction technique). RADIATION DOSE SUMMARY: DLP: 777.46 mGycm COMPARISON: Concomitant noncontrast CT head earlier today 01/14/2025. FINDINGS: CTA HEAD: Patent major intracranial arterial vasculature. No large vessel occlusion, significant flow-limiting stenosis, saccular aneurysm, or vascular malformation identified. Right posterior cerebral artery is primarily origin with diminutive/hypoplastic connection to the basilar artery, an anatomic variant. CTA NECK: Conventional aortic arch branching. Bilateral cervical carotid and codominant vertebral arteries are patent without significant stenosis. No aneurysm or dissection. CT/CTA Head AND Neck W/ Contrast IMPRESSION: No large vessel arterial occlusion or significant stenosis in the head or neck. Reading Location: [facility]
[2025-01-14 17:00] VITALS: BP 136/76; PULSE 82; RESP 18; O2SAT 92
[2025-01-14 17:02] LABS: Anion Gap 12 (5-15); BUN 28 mg/dL (4-19); BUN/Creat Ratio 34.1 RATIO (10-20); Calcium,Total 9.3 mg/dL (7.6-11.0); Carbon Dioxide 23.2 mmol/L (21.0-32.0); Chloride 101 mmol/L (98-108); Estimated Creatinine Clearance 56.91 ml/min (50-250); Glucose 101 mg/dL (70-99); Potassium 4.5 mmol/L (3.3-5.1)
[2025-01-14 17:40] LABS: Mucous, Urine 0 SEEN /hpf (<or=2+)
[2025-01-14 17:57] LABS: Color, Urine Straw (Yellow); Glucose, Dipstick Normal (Normal); Ketone-Dipstick Negative (Negative); Leukocyte Esterase-Dipstick 500 /ul (Negative); Nitrite-Dipstick Negative (Negative); Occult Blood-Urine 10 /ul (Negative); Protein-Dipstick Negative (Negative); Specific Gravity, Urine 1.010 (1.002-1.030); Urine Bilirubin Dipstick Negative (Negative)
[2025-01-14 18:00] VITALS: BP 127/76; PULSE 76; RESP 16; O2SAT 97
[2025-01-14 18:14] LABS: Red Blood Cells-Urine 0-5 SEEN /hpf (0-5); Squamous Epithelial Cells - UA 0-5 SEEN /hpf (5-10)
[2025-01-14 18:24] VITALS: BP 127/76; PULSE 76; RESP 16; TEMP 36.7; O2SAT 97
--- NOTE | 2025-01-14 18:48 | ED.RN ---
called pharmacy at 1840 in regard to dose of Diflucan that has not been received yet. pharmacy to send
--- NOTE | 2025-01-14 18:52 | ED.RN ---
report called to Latesha at this time,
[2025-01-14] MEDS: FLUCONAZOLE 150 MG TABLET PO (19:38)
== END 2025-01-14 19:45 | disposition home or self-care (01) ==
PROVIDERS: Emergency Provider Emergency Medicine; PCP Internal Medicine; Visit Provider Emergency Medicine
DX: S09.90XA Unspecified injury of head, initial encounter (principal); F03.93 Unspecified dementia, unspecified severity, with mood disturbance; F03.94 Unspecified dementia, unspecified severity, with anxiety; I48.91 Unspecified atrial fibrillation; S70.01XA Contusion of right hip, initial encounter; S40.021A Contusion of right upper arm, initial encounter; M25.552 Pain in left hip; W19.XXXA Unspecified fall, initial encounter; Y92.129 Unspecified place in nursing home as the place of occurrence of the external cause; B37.2 Candidiasis of skin and nail; I10 Essential (primary) hypertension; I44.0 Atrioventricular block, first degree; I34.1 Nonrheumatic mitral (valve) prolapse; E03.9 Hypothyroidism, unspecified; E78.5 Hyperlipidemia, unspecified; Z66 Do not resuscitate; Z79.82 Long term (current) use of aspirin; Z86.73 Personal history of transient ischemic attack (TIA), and cerebral infarction without residual deficits; Z79.899 Other long term (current) drug therapy; Z79.890 Hormone replacement therapy
CPT/HCPCS: 70450; 70496; 70498; 71045; 72125; 73060; 73521; 80048; 81001; 85025; 93005; 99285; Q9967; A4216

== ENCOUNTER → 2025-02-20 20:27 | Outpatient (REF) | payer MEDICARE, SELFPAY ==
[2025-02-20 20:28] LABS: Mucous, Urine 0 SEEN /hpf (<or=2+); Red Blood Cells-Urine 0 SEEN /hpf (0-5); Squamous Epithelial Cells - UA 0 SEEN /hpf (5-10)
[2025-02-20 23:19] LABS: Color, Urine Yellow (Yellow); Glucose, Dipstick Normal (Normal); Ketone-Dipstick Negative (Negative); Leukocyte Esterase-Dipstick 500 /ul (Negative); Nitrite-Dipstick Positive (Negative); Occult Blood-Urine 10 /ul (Negative); Protein-Dipstick Negative (Negative); Specific Gravity, Urine 1.010 (1.002-1.030); Urine Bilirubin Dipstick Negative (Negative)
== END ==
LOC: OLS.BROOKB 20:27
PROVIDERS: PCP Internal Medicine
DX: N39.0 Urinary tract infection, site not specified (principal)
CPT/HCPCS: 81001; 87077; 87086; 87088; 87186

== ENCOUNTER → 2025-03-22 | Outpatient (REF) | payer MEDICARE, SELFPAY ==
[2025-03-23 09:03] LABS: Mucous, Urine 0 SEEN /hpf (<or=2+); Red Blood Cells-Urine 0 SEEN /hpf (0-5)
[2025-03-23 09:15] LABS: Color, Urine Yellow (Yellow); Glucose, Dipstick Normal (Normal); Ketone-Dipstick Negative (Negative); Leukocyte Esterase-Dipstick 500 /ul (Negative); Nitrite-Dipstick Positive (Negative); Occult Blood-Urine 25 /ul (Negative); Protein-Dipstick 15 mg/dl (Negative); Specific Gravity, Urine 1.015 (1.002-1.030); Urine Bilirubin Dipstick Negative (Negative)
[2025-03-23 09:25] LABS: Squamous Epithelial Cells - UA 0-5 SEEN /hpf (5-10)
== END ==
LOC: OLS.BROOKB 16:20
PROVIDERS: PCP Internal Medicine
DX: N39.0 Urinary tract infection, site not specified (principal)
CPT/HCPCS: 81001; 87077; 87086; 87088; 87186

== ENCOUNTER 2025-04-22 11:47 | Emergency (ER) | payer MEDICARE, SELFPAY ==
[2025-04-22 11:48] VITALS: BP 132/65; PULSE 89; RESP 18; TEMP 36.6; O2SAT 95; BMI 29.8
--- NOTE | 2025-04-22 12:46 | RAD_ITS ---
PROCEDURE: KNEE 4 OR MORE VIEWS 04/22/2025 REASON FOR EXAM: INJURY/PAIN TECHNIQUE: Procedure Code: RADKN Modality: DX Procedure: KNEE 4 OR MORE VIEWS Laterality: Right knee COMPARISON: None FINDINGS: Bones: No fracture seen. Joints: The patient is status post right total knee replacement. There is good alignment. Effusion: No joint effusion. Soft tissues: Soft tissue swelling. Other: RAD/Knee 4 or More Views IMPRESSION: Status post total knee replacement. There is good alignment. Soft tissue swelling. Reading Location: [id number]
--- NOTE | 2025-04-22 12:46 | RAD_ITS ---
PROCEDURE: SHOULDER MIN 2 VIEWS 04/22/2025 REASON FOR EXAM: INJURY/PAIN TECHNIQUE: Procedure Code: RADSH Modality: DX Procedure: SHOULDER MIN 2 VIEWS Laterality: Right shoulder. COMPARISON: Prior study dated September 01, 2023. FINDINGS: Bones: No fracture seen. Joints: Marked degree of osteoarthritis of the glenohumeral joint. Marked degree of decreased space between the humeral head in the acromion in keeping with rotator cuff disease. Soft tissues: Unremarkable Other: RAD/Shoulder min 2 Views IMPRESSION: Degenerative changes as described with findings suggestive of rotator cuff path ology. Reading Location: [id number]
[2025-04-22 12:47] VITALS: BP 126/58; PULSE 71; RESP 16; O2SAT 99
--- NOTE | 2025-04-22 13:04 | CT_ITS ---
PROCEDURE: BRAIN/HEAD WITHOUT CONTRAST 04/22/2025 REASON FOR EXAM: INJURY/PAIN TECHNIQUE: Procedure Code: CTBR Modality: CT Procedure: BRAIN/HEAD WITHOUT CONTRAST Coronal and Sagittal reconstruction series were provided. One or more dose reduction techniques were used (e.g., Automated exposure control, adjustment of the mA and/or kV according to patient size, use of iterative reconstruction technique. RADIATION DOSE SUMMARY: CTDlvol: 44.99 mGy DLP: 815.79 mGycm COMPARISON: CT abdomen pelvis 01/14/2025. FINDINGS: Brain: Encephalomalacia in the right frontal lobe. No acute territorial infarction. No acute intracranial hemorrhage. No mass-effect or midline shift. Diffuse white matter hypodensities which are nonspecific but likely due to chronic small-vessel ischemia. Parenchymal volume loss consistent with brain atrophy. No ventriculomegaly. The orbits are unremarkable. The craniocervical junction is unremarkable. CSF Spaces: Advanced generalized cerebral atrophy Sinuses/Mastoids: Clear at visualized levels Bones: No acute bony elements. CT/Brain/Head without Contrast IMPRESSION: No acute intracranial abnormalities. Reading Location: [facility]
--- NOTE | 2025-04-22 13:20 | RAD_ITS ---
PROCEDURE: HIP, UNI W/ PELVIS 2-3 VIEWS 04/22/2025 REASON FOR EXAM: INJURY/PAIN TECHNIQUE: Procedure Code: RAD Modality: DX Procedure: HIP, UNI W/ PELVIS 2-3 VIEWS Laterality: Right hip. COMPARISON: January 14, 2025. FINDINGS: Bones: No fracture seen. Joints: Severe joint space narrowing and osteoarthritis of both hip joints. Soft tissues: Moderate amount of fecal material is seen in the colon. Other: Disc space narrowing and degeneration in the lower lumbar spine. RAD/HIP, UNI W/ Pelvis 2-3 Views IMPRESSION: Degenerative changes/osteoarthritis of both hip joints. No fracture or disloca tion. Reading Location: [facility]
[2025-04-22 14:00] VITALS: BP 121/70; PULSE 80; RESP 16; O2SAT 100
--- NOTE | 2025-04-22 14:53 | ED.VIS.FALL ---
HPI HPI - Fall History of Present Illness Chief Complaint: Fall Informant: patient Occured/Mechanism Occurred: Today Mechanism/Context: Yes same level fall Pain/Injury Pain Location: head, upper extremity (Right shoulder) and lower extremity (Right hip, right knee) Quality of Pain: Aching Worsened by: Nothing Relieved by: Nothing Associated Symptoms Associated Symptoms: Negative for Parasthesias, Weakness, Loss of function, Inability to ambulate or Loss of consciousness Narrative Narrative: Patient presents after a fall. Patient states she landed on her right side. Patient hit the right side of her head. Patient denies any paresthesias or weakness. Patient states her pain is worse over her right shoulder. Patient describes it as aching. Patient denies any paresthesias or weakness. Patient denies any loss of consciousness. Patient does admit to a mild headache. Patient denies any neck or back pain. Patient also admits to pain in her right knee and right hip. PFSH [facility] Medical History Anxiety Spinal stenosis Depression Hypothyroidism Non-smoker Atrial fibrillation Chest pain Hypertension Dementia Groin pain, chronic, left Hypothyroidism Nonrheumatic mitral (valve) prolapse Hyperlipidemia Premature ventricular contraction Premature atrial contractions Home Medications ?Medication ?Instructions ?Recorded ?Last Taken ?Type aspirin 81 mg tablet,delayed 81 mg PO DAILY@0800 11/18/13 Unknown History release multivitamin with folic acid 400 1 tab PO DAILY 11/18/13 Unknown History mcg tablet simvastatin 20 mg tablet 20 mg PO QHS 10/16/16 Unknown History levothyroxine 88 mcg tablet 88 mcg PO QDAY 11/21/17 Unknown History fluoxetine 20 mg capsule (Prozac) 20 mg PO DAILY 02/23/23 Unknown History rivastigmine 4.6 mg/24 hour 4.6 mg transdermal DAILY 02/23/23 Unknown History transdermal patch melatonin 3 mg capsule 3 mg PO QHS 02/25/23 Unknown History furosemide 20 mg tablet 20 mg PO DAILY 04/11/24 Unknown History hydroxyzine HCl 25 mg tablet 25 mg PO TID PRN anxiety 04/11/24 Unknown History ondansetron 4 mg disintegrating 4 mg PO Q12H PRN nausea and 04/11/24 Unknown History tablet vomiting spironolactone 25 mg tablet 25 mg PO DAILY 04/11/24 Unknown History albuterol sulfate 90 mcg/actuation 2 inh inhalation Q6H PRN shortness 01/14/25 Unknown History aerosol inhaler (Ventolin HFA) of breath or wheezing hydroxyzine pamoate 25 mg capsule 25 mg PO QHS 01/14/25 Unknown History (Vistaril) loperamide 2 mg capsule 2 mg PO TID PRN PRN loose stool 01/14/25 Unknown History (Anti-Diarrheal (loperamide)) nystatin-triamcinolone 100,000 1 applic topical BID #30 grams 01/14/25 Unknown Rx unit/g-0.1 % topical cream quetiapine 25 mg tablet 25 mg PO TID depression 01/14/25 Unknown History Allergy/AdvReac Type Severity Reaction Status Date / Time clindamycin Allergy Vomiting Verified 04/22/25 11:55 Penicillins (PCN) Allergy Hives Verified 04/22/25 11:55 Sulfa (Sulfonamide Allergy Hives Verified 04/22/25 11:55 Antibiotics) atorvastatin calcium (From AdvReac Diarrhea Verified 04/22/25 11:55 Lipitor) hydromorphone HCl (From AdvReac Vomiting Verified 04/22/25 11:55 Dilaudid) morphine AdvReac Vomiting Verified 04/22/25 11:55 potassium AdvReac Diarrhea Verified 04/22/25 11:55 procaine (From Novocain) AdvReac Other Verified 04/22/25 11:55 tetracycline (Tetracycline) AdvReac Vomiting Verified 04/22/25 11:55 Family History Father CAD (coronary artery disease) ICD (implantable cardioverter-defibrillator) in place Brother Pacemaker Brother CAD (coronary artery disease) Myocardial infarction Surgical History History of hernia repair History of cataract extraction History of knee replacement procedure of right knee History of knee replacement procedure of left knee History of cholecystectomy History of hysterectomy Social History housing: half-way Smoking Status: Never smoker alcohol intake: never substance use type: does not use caffeine: No frequency: does not exercise ROS ROS ED Constitutional Constitutional ED: Denies chills or fever(s) Eyes Eyes: Denies blurry vision or change in vision ENT ENT ED: Denies rhinorrhea or sore throat Cardiovascular Cardiovascular: Denies chest pain or palpitations Respiratory/Chest Respiratory/Chest: Denies cough or dyspnea Gastrointestinal Gastrointestinal: Denies nausea or vomiting Genitourinary Genitourinary ED: Denies dysuria or hematuria Musculoskeletal Musculoskeletal: Denies back pain or neck pain Integumentary Denies abscess or rash Neurologic Neurologic: Reports headache(s); Denies weakness Allergic/Immunologic Allergic/Immunologic ED: Denies mouth swelling or urticaria EXAM Physical Exam Const Vital Signs: 04/22/25 11:48 04/22/25 12:47 04/22/25 14:00 Temperature 98 F Temperature Source Oral Pulse Rate 89 71 80 Respiratory Rate 18 16 16 Respiratory Effort Blood Pressure 132/65 H 126/58 H 121/70 H Blood Pressure Mean 87 80 87 Pulse Ox 95 99 100 Oxygen Delivery Method Room Air 04/22/25 14:42 Temperature Temperature Source Pulse Rate Respiratory Rate Respiratory Effort Normal Non-Labored Blood Pressure Blood Pressure Mean Pulse Ox Oxygen Delivery Method Positive well nourished and well developed General Appearance ED: well developed and NAD HEENT HEENT Narrative: There is mild tenderness over the right cheek and parietal area. There is no bony crepitance or step-off noted. There is mild edema. There is no ecchymosis. tenderness Neck full ROM and supple Resp normal respiratory effort and clear to auscultation bilaterally Cardio regular rate and regular rhythm GI non-tender and non-distended Palpation: soft Extremity Extremity Narrative: There is tenderness over the right shoulder and proximal humerus. There is no deformity noted. There is minimal tenderness along the clavicle. Range of motion was limited in all motions of the right shoulder secondary to pain. There is also tenderness over the right knee and right hip. There is no deformity. Range of motion was slightly limited in internal and external rotation of the right lower extremity secondary to pain. Range of motion of the right knee was limited due to pain. Strength is 5/5 bilateral in the upper and lower extremities. There are no sensory deficits noted. Neuro oriented x3, CN's II-XII intact bilaterally, moves all extremities, no focal motor deficits and no sensory deficits noted Polo Coma Scale: document GCS findings Spontaneous Obeys Commands Oriented 15 Sensorium / Orientation: alert Motor Exam: strength 5/5 throughout Psych mental status grossly normal MDM MDM MDM Narrative Medical decision making narrative: Differential diagnosis includes intracranial bleeding, proximal humerus fracture, hip fracture, knee fracture, contusion, and sprain. CT scan of the brain will be obtained to assess for intracranial bleeding. X-rays of the right shoulder will be obtained to assess for fracture or dislocation. X-rays of the right knee will be obtained to assess for fracture. X-rays of the right hip will be obtained to assess for fracture. Radiography Diagnostic Testing: Clinical Impression(s) from Imaging Studies Knee X-Ray 04/22/25 12:46 IMPRESSION: Status post total knee replacement. There is good alignment. Soft tissue swelling. Reading Location: [id number] Shoulder X-Ray 04/22/25 12:46 IMPRESSION: Degenerative changes as described with findings suggestive of rotator cuff pathology. Reading Location: [id number] Brain CT 04/22/25 13:04 IMPRESSION: No acute intracranial abnormalities. Reading Location: [id number] Hip/Pelvis X-Ray 04/22/25 13:20 IMPRESSION: Degenerative changes/osteoarthritis of both hip joints. No fracture or dislocation. Reading Location: [id number] CT scan of the brain was obtained. There is no acute intracranial abnormality. This was interpreted by the radiologist. I also independently reviewed the images and did not see any intracranial bleeding. X-rays of the right shoulder were obtained. There are 5 views. On my independent interpretation, there is no acute fracture or dislocation. There are some degenerative changes noted. Radiologist also interpreted the x-rays and agrees. X-rays of the right knee were obtained. There are 4 views. On my independent interpretation, there is no acute fracture or dislocation. The knee prosthesis is in place. Radiologist also interpreted the x-rays and agrees. X-rays of the right hip were obtained. There are 3 views. On my independent interpretation, there is no acute fracture. There are some mild degenerative changes noted. Treatment and Re-Evaluation Narrative: Patient and family were advised of the findings. Patient was instructed to take Tylenol or ibuprofen as needed for pain. Patient was instructed to follow-up with her primary care physician in 5 to 7 days. Patient was instructed to return if worse in any way. Patient and family understood and were agreeable with the plan. All questions were answered. Discharge Plan Triage Chief Complaint: Fall ED Provider: Joel Costello Dx/Rx/DC Orders Clinical Impression: Contusion of right shoulder, initial encounter, Fall, Closed head injury, Contusion of right hip, initial encounter Instructions: ED Head Injury (Adult), ED Shoulder Bruise Prescriptions: No Action levothyroxine 88 mcg tablet 88 mcg PO QDAY aspirin 81 MG tablet 81 mg PO DAILY@0800 multivitamin with folic acid 1 TABLET tablet 1 tab PO DAILY simvastatin 20 MG tablet 20 mg PO QHS fluoxetine [Prozac] 20 mg capsule 20 mg PO DAILY Patient Comments: Take 1 capsule By Mouth every morning rivastigmine 4.6 mg/24 hour patch 24 hour 4.6 mg transdermal DAILY melatonin 3 mg capsule 3 mg PO QHS hydroxyzine HCl 25 mg tablet 25 mg PO TID PRN (Reason: anxiety) furosemide 20 mg tablet 20 mg PO DAILY ondansetron 4 mg tablet,disintegrating 4 mg PO Q12H PRN (Reason: nausea and vomiting) spironolactone 25 mg tablet 25 mg PO DAILY loperamide [Anti-Diarrheal (loperamide)] 2 mg capsule 2 mg PO TID PRN PRN (Reason: loose stool) albuterol sulfate [Ventolin HFA] 90 mcg/actuation HFA aerosol inhaler 2 inh inhalation Q6H PRN (Reason: shortness of breath or wheezing) hydroxyzine pamoate [Vistaril] 25 mg capsule 25 mg PO QHS quetiapine 25 mg tablet 25 mg PO TID nystatin-triamcinolone 100,000-0.1 unit/g-% cream 1 applic topical BID Qty: 30 0RF Primary Care Provider: José Miguel Frias Referrals: José Miguel Frias MD [Primary Care Provider, Internal Medicine] - 1-2 Weeks Print Language: Yoruba Disposition Disposition: Home, Self Care
[2025-04-22 14:59] VITALS: BP 121/70; PULSE 80; RESP 16; TEMP 36.8; O2SAT 100
== END 2025-04-22 15:24 | disposition home or self-care (01) ==
PROVIDERS: Emergency Provider Emergency Medicine; PCP Internal Medicine; Visit Provider Emergency Medicine
DX: S40.011A Contusion of right shoulder, initial encounter (principal); S09.90XA Unspecified injury of head, initial encounter; S70.01XA Contusion of right hip, initial encounter; W18.30XA Fall on same level, unspecified, initial encounter
CPT/HCPCS: 70450; 73030; 73502; 73564; 99284